=== PATIENT | female | born 1990 | race Caucasian/White ===

== ENCOUNTER → 2018-02-07 14:13 | Outpatient (CLI) | payer OTHER, SELFPAY ==
[2018-02-07 11:30] VITALS: BMI 27.8
--- OUTSIDE RECORDS SUMMARY | 2018-04-04 23:55 | XMS RPT_ITS ---
:1990 Author Organization [facility] Care Team Providers Name Role Phone Delano Gonzales Attending Delano Ordoñez Attending Delano Ordoñez Referring Unavailable PROBLEMS PROBLEMS DATE TYPE CONDITION / CODE ATTENDING STATUS SOURCE 02/07/2018 Unknown J02.9 - Acute Delano Gonzales Active [place] pharyngitis, Community unspecified / Hospital J02.9(ICD-10) Repository PROCEDURES PROCEDURES No Procedure Records FoundRESULTS RESULTS Observed: 02/07/2018 Status: F Source: CODORUS CULTURE, R/O STREP A 2:44 PM [facility] REPOSITORY [place] Culture No Streptococcus group A isolated. * This cultures intended use is to screen for Beta Streptococcus A only. All other pathogens and potential pathogens will not be screened for or reported. If a complete workup of all potential pathogens is indicated an order for a routine throat culture is required. Performed By: #### M100.010 #### [facility] [address] [place], [place], [address] URGENT CARE VISIT Observed: 02/07/2018 Status: F Source: CODORUS REPORT 11:46 AM [facility] REPOSITORY [facility] [address] [place] [address] OFFICE VISIT Date of Service: 02/07/18 MR#: [id number] Acct: [id number] Name: DAVID POST Rep #: [id number] : 1990 Provider: Delano RODGERS Age/Sex: 27/F Location: [facility] Status: Signed Intake Vital Signs02/07/18 Height 5 ft 4 in Intake Visit Reasons: SORE THROAT Chief Complaint: Sore throat [employer] Required: No Accompanied by: boyfriend Is patient in pain?: No Allergies No Known Allergies Allergy (Unverified 02/07/18 11:32) Medications ibuprofen 200 mg capsule 200 mg PO TID-QID PRN 02/07/18 [History Confirmed 02/07/18] PFS Medical History History of anemia (Acute) History of asthma (Acute) History of back pain (Acute) history of knee pain (Acute) Social History Smoking Status: Current every day smoker alcohol intake: current HPI HPI Chief Complaint: Sore throat Details: DAVID POST, is a 27 F who presents to the office today for initial evaluation approximately 48-hour history of sore throat, chills, congestion. No complaints of fever, sweats, rash, cough, chest pain/shortness of breath. She is a non-smoker, noting her live-in boyfriend has similar symptoms. She is a non-smoker noting no fggo-fgj-joyofma products have been tried to assist with symptoms. She notes no other associated symptoms and no other alleviating or aggravating factors. ROS Const Constitutional: No other (ROS negative x10 other than as noted above) Exam Const General: cooperative, healthy appearing, no acute distress, comfortable Nutritional Appearance: obese Orientation: alert, awake, oriented x3 HENMT Head: normal to inspection Ears: hearing grossly normal bilaterally, external ears normal, TM's normal bilaterally, EAC's normal Nose: external nose normal, nares normal, septum normal, nasal discharge clear (Scant amount) Face and sinus: normal facial exam, sinuses nontender, face symmetric Mouth: tongue normal, lip normal, oral mucosae normal Teeth and gingiva: dentition normal, gingiva normal Throat: uvula midline, posterior oropharynx normal, no postnasal drainage, abnormal tonsil bilaterally hypertrophy 1+ (Rapid strep test today negative) Eyes General: appearance normal, both eyes and all related structures Neck Neck: normal visual inspection, full ROM, no lymphadenopathy, no meningeal signs, supple Neck mass: No Thyroid: thyroid normal Lymphatic: no lymphadenopathy noted Chest Chest palpation AND inspection: normal inspection of the chest Resp Effort AND Inspection: normal respiratory effort, able to speak in complete sentences, symmetric chest movement, no cough Auscultation: Bilateral: Clear to Auscultation Cardio Palpation: normal PMI Rate: regular rate Rhythm: regular rhythm Heart Sounds: S1 normal, S2 normal, no gallops, no murmurs, no rubs Pulses: radial pulses present GI Inspection: normal to inspection Palpation: soft, no hepatosplenomegaly Skin General: no rashes or lesions noted Neuro General: alert, awake, oriented x3, gait normal Cognition: normal cognition Speech: speech normal Gait: normal gait Motor: muscle tone normal throughout Sensory Exam: no sensory deficits noted Psych Appearance: grossly normal Mental Status: mental status grossly normal Mood: congruent mood Affect: normal affect Speech and Movement: speech and movement normal Attitude: cooperative Thought Process: normal Thought Content: normal Judgment: judgment good Results BMSRAPIDSTREPA Office Rapid Strep A Negative Last Edit by Margaret Miles on 02/07/18 11:38 BMSRAPIDSTREPA Office Rapid Strep A Negative Last Edit by Deb Mcginnis on 02/07/18 11:44 Assessment AND Plan Problems 1. Pharyngitis J02.9 Plan Patient aware today's rapid strep test is negative therefore culture sent to lab for further evaluation. Clear fluid, rest, Advil/Tylenol, saltwater gargles as needed for symptom relief. Follow-up PCP in 5-7 days should symptoms not improve, sooner should symptoms worsen or any other concerns develop. Patient states acknowledging understanding all the above. This note was generated with Phoneplus dictation software. It may contain incorrect words, spelling, and punctuation that were not noted in checking the note before signing. Orders Orders: Coding Level of Care Code Off vis,new,level 3 Diagnoses Pharyngitis J02.9 02/07/18 1146 <Electronically signed by Delano RODGERS> Date Delano RODGERS Cosigner Signature: Date (if applicable) CC: ALLERGIES ALLERGIES DATE TYPE / CODE NAME / CODE REACTION SEVERITY SOURCE 02/07/2018 Drug No Known Unknown [place] [facility] Allergy/4160 Allergies/F00 Hospital 97772(SNOMED [id number](RXNOR Repository CT) M) ENCOUNTERS ENCOUNTERS ADMIT/DISCHARGE ACCOUNT ADMITTING ENCOUNTER LOCATION SOURCE NUMBER CLASS 02/07/2018 [id number] Ambulatory [place] [facility] ing:LABSPEC Repository 02/07/2018/11/28/ [id number] Ambulatory BMSBuilding:B [place] [address] [facility] Repository PAYERS PAYERS ENCOUNTER GUARANTOR PAYER SUBSCRIBER SOURCE 02/07/2018 DAVID B Primary DAVID B [place] [id number] [facility] [place] [id number] [id number] [address] [place] [address], Number: [place]ository [place] [id number]: [id number] Date:[id number] () [address], [place] [address]XF: 02/07/2018 Secondary NOT GIVENUNK [place] Insurance:SELF PAY [facility] Number: Effective Repository Date:2018-02-07 02/07/2018 DAVID B Primary DAVID B [place] [id number] [facility] [place] [id number] [id number] [address] [place] [address], Number: [place]ository [place] [id number]: [id number] Date:[id number] () [address], [place] [address]TZ: 02/07/2018 Secondary NOT GIVENUNK [place] Insurance:SELF PAY [facility] Number: Effective Repository Date:2018-02-07
== END ==
PROVIDERS: Referring Provider Physician Assistant; Visit Provider Physician Assistant
DX: J02.9 Acute pharyngitis, unspecified (principal)
CPT/HCPCS: 87081

== ENCOUNTER → 2021-01-26 15:18 | Outpatient (CLI) | payer MEDICARE, SELFPAY | PROVIDERS: Referring Provider Physician Assistant Surgical; Visit Provider Physician Assistant Surgical | DX: Z11.52 Encounter for screening for COVID-19 (principal) | CPT/HCPCS: 87635; U0005; U0003 ==

== ENCOUNTER → 2022-10-14 | Outpatient (CLI) | payer SELFPAY ==
[2022-10-14 09:20] LABS: Absolute Lymphocyte Count 1.75 X10^3/uL (0.83-4.51); Absolute Neutrophil Count 5.4 X10^3/uL (2.0-7.7); Basophil# 0.04 X10^3/uL; Basophil% 0.5 % (0-1); Eosinophil# 0.31 X10^3/uL; Eosinophils% 3.8 % (0-5); Hematocrit 37.1 % (37-47); Hemoglobin 12.6 g/dL (12.0-15.0); Lymphocyte # 1.75 X10^3/ul (0.83-4.51); Lymphocyte % 21.5 % (19-41); Mean Corpuscular Hgb 31.5 pg (27.0-32.0); Mean Corpuscular Volume 92.8 fL (81-99); Mean Platelet Vol. 10.4 fl (6.2-12.0); Monocyte# 0.63 X10^3/uL; Monocyte% 7.7 % (0-10); NRBC Flagged by Analyzer 0 % (0-5); Neutrophil # 5.37 X10^3/uL (2.7-7.7); Platelet Count 243 K/mm3 (150-450); RBC Distribution Width SD 41.2 fl (35.1-43.9); White Blood Count 8.1 K/mm3 (4.4-11.0)
[2022-10-14 10:10] LABS: NATERA MAILED SPECIMEN
[2022-10-14 10:24] LABS: HIV - WCH Non-Reactive (Nonreactive); Hepatitis B Surface Antigen Non-Reactive (Nonreactive); Hepatitis C Antibody Non-Reactive (Nonreactive); Rubella IgG Reactive (Nonreactive); Syphilis Antibodies Non-reactive
[2022-10-17 05:06] LABS: Chlamydia By Nucleic Acid AMP Negative (Negative); Gonococcus By Nucleic Acid AMP Negative (Negative)
== END | disposition home or self-care (01) ==
PROVIDERS: Obstetrics & Gynecology; Referring Provider Obstetrics & Gynecology; Visit Provider Obstetrics & Gynecology
DX: Z34.81 Encounter for supervision of other normal pregnancy, first trimester (principal)
CPT/HCPCS: 36415; 85025; 86703; 86762; 86780; 86803; 86850; 86900; 86901; 87086; 87088; 87340; 87491; 87591

== ENCOUNTER → 2022-11-11 | Outpatient (CLI) | payer SELFPAY | END | disposition home or self-care (01) | PROVIDERS: Referring Provider Advanced Practice Midwife; Visit Provider Advanced Practice Midwife | DX: R35.0 Frequency of micturition (principal) | CPT/HCPCS: 87086; 87088 ==

== ENCOUNTER → 2023-02-17 | Outpatient (CLI) | payer BC, SELFPAY ==
[2023-02-17 16:25] LABS: Absolute Lymphocyte Count 1.64 X10^3/uL (0.83-4.51); Absolute Neutrophil Count 8.2 X10^3/uL (2.0-7.7); Basophil# 0.04 X10^3/uL; Basophil% 0.4 % (0-1); Eosinophil# 0.21 X10^3/uL; Eosinophils% 1.9 % (0-5); Hematocrit 34.1 % (37-47); Lymphocyte # 1.64 X10^3/ul (0.83-4.51); Lymphocyte % 15.1 % (19-41); Mean Corp Hgb Conc 35.2 g/dL (32-36); Mean Corpuscular Hgb 33.3 pg (27.0-32.0); Mean Corpuscular Volume 94.7 fL (81-99); Mean Platelet Vol. 10.5 fl (6.2-12.0); Monocyte# 0.71 X10^3/uL; Monocyte% 6.5 % (0-10); NRBC Flagged by Analyzer 0 % (0-5); Neutrophil # 8.24 X10^3/uL (2.7-7.7); Neutrophil % 75.6 % (47-70); Platelet Count 235 K/mm3 (150-450); RBC Distribution Width CV 12.2 % (11.6-14.6); RBC Distribution Width SD 42.8 fl (35.1-43.9); White Blood Count 10.9 K/mm3 (4.4-11.0)
[2023-02-17 17:13] LABS: Glucose Challenge Gest 1H 50g 106 mg/dL (70-140)
[2023-02-17 17:52] LABS: HIV - WCH Non-Reactive (Nonreactive); Syphilis Antibodies Non-reactive
== END | disposition home or self-care (01) ==
PROVIDERS: Referring Provider Obstetrics & Gynecology; Visit Provider Obstetrics & Gynecology
DX: O09.90 Supervision of high risk pregnancy, unspecified, unspecified trimester (principal); Z3A.00 Weeks of gestation of pregnancy not specified; Z13.1 Encounter for screening for diabetes mellitus
CPT/HCPCS: 36415; 82950; 85025; 86703; 86780

== ENCOUNTER → 2023-04-11 | Outpatient (CLI) | payer BC, SELFPAY ==
--- NOTE | 2023-04-11 14:07 | US_ITS ---
INDICATION: Growth scan d/t asthma inhaler use EXAMINATION: US OB Follow-Up TECHNIQUE: Transabdominal pelvic ultrasound was performed. COMPARISON: None. FINDINGS: Single live intrauterine fetus in cephalic presentation with heart rate 153 BPM. Posterior grade 2 placenta appears intact with no placenta previa. Nonvisualized cervix, obscured by shadowing. Maternal adnexa not imaged. Amniotic fluid index within normal limits, 17.5 cm. Estimated gestational age of 35 weeks 3 days based on biometrics with MANUEL of 05/13/23. Clinical age of 36 weeks 1 day with LMP of 08/01/2022 and MANUEL 05/08/2023. Estimated weight 2715 g (6 lbs. 0 oz.), 37th percentile. BIOMETRIC MEASUREMENTS: BIPARIETAL DIAMETER: 8.82 cm which corresponds to 35 weeks 5 days. HEAD CIRCUMFERENCE: 31.90 cm which corresponds to 35 weeks 6 days. ABDOMINAL CIRCUMFERENCE: 32.10 cm which corresponds to 36 weeks 0 days. FEMORAL LENGTH: 6.64 cm which corresponds to 34 weeks 1 day. US/OB Limited With Biometrics IMPRESSION: Single live intrauterine with no acute abnormality. EGA by ultrasound is 35 weeks 3 days with clinical age of 36 weeks 1 day. Electronically Signed: Denis Parekh MD at 0:49 EST ,
--- OUTSIDE RECORDS SUMMARY | 2023-04-11 14:28 | XMS RPT_ITS | CCD ---
Author Name Unknown Address [address] [place] [address] Organization [facility] Care Team Providers Care Pediatric Dentist Name Role Phone TONI MESA Unavailable Unavailable TONI MESA Unavailable Unavailable AA NO PCP, NO PCP Unavailable Unavailable Unavailable Primary Care Provider SHERRI Fay Referring Unavailable NO PRIMARY CARE, Primary Care Unavailable KEEGAN WINKLER Referring UnavailYANIRA Rouse Attending Unavailable Allergies Allergy Classification Reported Allergen(s) Allergy Type Date of Onset Reaction(s) Facility (2 sources) Aspirin; Translations: [ASPIRIN] Drug Allergy 05-22-2019 Unknown [facility] Medications Completed/Discontinued Medications Medication Drug Class(es) Dates Sig (Normalized) Sig (Original) Ethinyl Estradiol / Norethindrone (1 source) Estrogen Start: 11-04-2019 take 1 tablet by mouth once daily 04/01, , 1-20 mg-mcg per tablet Indications: Encounter for surveillance of contraceptive pills TAKE 1 TABLET BY MOUTH EVERY DAY 84 tablet 0 11/04/2019 Active Problems Active Problems Problem Classification Problem Date Documented Da te Episodic/Chronic External Injury - Struck by; against (1 source) Striking against or struck by other objects, initial encounter; Translations: [STRIKING AGNST/STRUCK OTH OBJ INIT] Onset: 12-21-2016 Other connective tissue disease (1 source) Pain in finger of right hand; Translations: [Pain in right finger(s)] Episodic Other connective tissue disease (1 source) Pain in right finger(s); Translations: [Pain of finger of right hand] Onset: 06-14-2022 Episodic Other injuries and conditions due to external causes (1 source) Injury of right hand; Translations: [Unspecified injury of right wrist, hand and finger(s), initial encounter] Episodic Other injuries and conditions due to external causes (1 source) Unspecified injury of right wrist, hand and finger(s), initial encounter; Translations: [Injury of right hand, initial encounter] Onset: 06-14-2022 Episodic Past or Other Problems Problem Classification Problem Date Documented Da te Episodic/Chronic Immunizations and screening for infectious disease (1 source) Encounter for immunization; Translations: [ENCOUNTER FOR IMMUNIZATION] Onset: 12-21-2016 Episodic Open wounds of extremities (1 source) Laceration without foreign body of right index finger with damage to nail, initial encounter; Translations: [LAC W/O FB RT IF W/DAMAGE NAIL INIT] Onset: 12-21-2016 Episodic Other aftercare (1 source) Other nursing home (current) drug therapy; Translations: [OTH FDC CURRENT DRUG THERAPY] Onset: 12-21-2016 Episodic Other injuries and conditions due to external causes (1 source) Other specified injuries of right wrist, hand and finger(s), initial encounter; Translations: [OTH SPEC INJ RT WRST HND FNGR INIT] Onset: 12-21-2016 Episodic Screening or history of mental health and substance abuse (1 source) Personal history of nicotine dependence; Translations: [PERSONAL HISTORY OF NICOTINE DEPEND] Onset: 12-21-2016 Episodic Results Test Name Value Interpretation Reference Range Facil ity Vital Signs Date Time Vital Sign Value Performing Clinician Gregory manuel 06-14-2022 12:53-0400 Body temperature 97.2 [degF] Sherri Seaman APRN.SOFIE Work Phone: [facility] 06-14-2022 12:53-0400 Body weight 75.3 kg Sherri Seaman APRN.CNP Work Phone: [facility] 06-14-2022 12:53-0400 Diastolic blood pressure 68 mm[Hg] Sherri Seaman APRN.SOFIE Work Phone: [facility] 06-14-2022 12:53-0400 Heart rate 78 /min Sherri Seaman APRN.CNP Work Phone: [facility] 06-14-2022 12:53-0400 Respiratory rate 16 /min Sherri Seaman APRN.SOFIE Work Phone: [facility] 06-14-2022 12:53-0400 SaO2% (BldA) [Mass fraction] 99 % Sherri Seaman APRN.CNP Work Phone: [facility] 06-14-2022 12:53-0400 Systolic blood pressure 110 mm[Hg] Sherri Seaman APRN.CNP Work Phone: [facility] Encounters Encounter Date Encounter Type Care Provider Facility Start: 12-22-2022 End: 12-22-2022 ambulatory MD [facility] Start: 06-14-2022 End: 06-14-2022 ambulatory SHERRI SEAMAN Facility:[facility] Start: 06-14-2022 End: 06-14-2022 Patient encounter procedure Sherri Seaman APRN.CNP Work Phone: [facility] Plan of Treatment Date Care Activity Detail Author Start: 05-21-2024 PAP TESTING PAP TESTING [facility] Start: 11-11-2022 Influenza vaccination INFLUENZA (Sea son Ended) [facility] Start: 03-13-2022 DEPRESSION ASSESSMENT DEPRESSION ASS ESSMENT [facility] Start: 2020 HPV TESTING HPV TESTING [facility] Start: 2009 Urine microalbumin profile DTAP,TDAP,TD (1 - Tdap) [facility] Start: 2008 HEPATITIS C SCREENING HEPATITIS C SC YOMAIRA [facility] Start: 2008 HIV SCREENING HIV SCREENING [facility] Start: 1996 PNEUMOCOCCAL (1 - PCV) PNEUMOCOCCAL (1 - PCV) [facility] Start: 05-03-1991 COVID-19 VACCINE (#1) COVID-19 VACCI NE (#1) [facility] Start: 1990 HEPATITIS B (1 of 3 - 3-dose series) HEPATITIS B (1 of 3 - 3-dose series) [facility] Payers Date Payer Category Payer Unknown [employer] [id number] 2022-Present [phone] [address] [address] [place] [address] PPO [id number] 2022 Unknown [id number] 1990 Unknown [id number] 1959 Self-pay [id number] Unknown [id number] Social History Date Type Detail Facility Start: [facility]14[facility] History of tobacco use Cigarette Smoker C [facility] Start: 06-14-2022 Tobacco use and exposure Smoke less tobacco non-user [facility] Start: 06-14-2022 Alcohol intake Current drinke r of alcohol (finding) [facility] Start: 05-22-2019 History SDOH Alcohol Frequency 4 [facility] Start: 05-22-2019 History SDOH Alcohol Std Drinks 3 [facility] Start: 05-22-2019 History SDOH Social Connections Phone 1 [facility] Start: 05-22-2019 History SDOH Social Connections Membership 2 [facility] Start: 05-22-2019 History SDOH Social Connections Living 8 [facility] Start: 05-22-2019 History SDOH Physica l Activity DPW 7 [facility] Start: 05-22-2019 History SDOH Physica l Activity MPS 15 [facility] Start: 05-22-2019 History SDOH Stress 5 [facility] Start: 06-14-2022 Tobacco Comment 4-5 a day [facility] Start: 1990 Sex Assigned At Not on file C [facility] Progress note 06-14-2022 Note Date & Type Note Facility 06-14-2022 Note HNO ID: [id number] Author: Traci Ayala RT(R) Service: Radiology Author Type: Technologist Type: Progress Notes Filed: 06/14/2022 1:12 PM Note Text: Radiology Service Progress Note PATIENT NAME: Payton Steiner DATE OF SERVICE: June 14, 2022 TIME: 1:06 PM PATIENT IDENTITY VERIFICATION COMPLETED USING TWO (2) IDENTIFIERS: Name and Date of confirmed by patient verbally. FALL SCREENING: Has the patient had 2 falls in the last year or 1 fall with injury or currently using an Ambulatory Assistive Device (Walker, Cane, Wheelchair, Crutches, etc.)? No PATIENT GENDER DATA: Female. status: : No status: NO. PATIENT RELEVANT IMPLANT DATA REVIEWED: Yes RADIOLOGY DEPARTMENT: General X-ray: Exam(s) Completed: Upper Extremity X-Ray(s): Hand, right PERIPHERAL IV DATA: Not applicable SIGNED BY: RT Bo(R) June 14, 2022 1:06 PM [facility] Progress note 06-14-2022 Note Date & Type Note Facility 06-14-2022 Note HNO ID: [id number] Author: Sherri Seaman APRN.PUMP REBUILDER Service: ? Author Type: Nurse Practitioner Type: Progress Notes Filed: 06/14/2022 1:33 PM Note Text: Subjective The history is provided by the patient. No language assistant was used. HPI Payton Steiner is a 31 year old female who presents today for CC of right hand/ring finger pain after shutting hand/finger in car door. This happened about an hours ago. There are no cuts, mild swelling, no bruising. She has not used any treatment. No previous injury. BP 110/68 Pulse 78 Temp 36.2 ?C (97.2 ?F) Resp 16 Wt 75.3 kg (166 lb) LMP 05/10/2019 SpO2 99% BMI (P) 28.69 kg/m? Social History Tobacco Use Smoking status: Every Day Types: Cigarettes Smokeless tobacco: Never Tobacco comments: 4-5 a day Vaping Use Vaping Use: Never used Substance Use Topics Alcohol use: Yes Drug use: Yes Types: Marijuana No past medical history on file. I have confirmed and edited as necessary, the [facility] Review of Systems Constitutional: Negative for chills and fever. Musculoskeletal: Positive for joint pain (right hand, ring finger). Negative for myalgias. Skin: Negative for itching and rash. All other systems reviewed and are negative. Objective Physical Exam Vitals and nursing note reviewed. Cardiovascular: Pulses: Radial pulses are 2+ on the right side and 2+ on the left side. Pulmonary: Effort: Pulmonary effort is normal. Skin: General: Skin is warm and dry. Neurological: Mental Status: She is alert and oriented to person, place, and time. Psychiatric: Mood and Affect: Affect normal. ASSESSMENT/PLAN: 1. Injury of right hand, initial encounter - ICD9: 959.4, ICD10: S69.91XA (primary diagnosis) - XR HAND GENERAL 3V PA/LAT/OBL RIGHT 2. Pain of finger of right hand - ICD9: 729.5, ICD10: M79.644 RICE Tylenol/Ibuprofen prn Loren tape/splint as needed for comfort - XR HAND GENERAL 3V PA/LAT/OBL RIGHT FINDINGS: No fractures or dislocations are seen. The bones, joint spaces and soft tissues are unremarkable. IMPRESSION: Negative Interpreted by : AMAN HELMS MD Diagnosis and treatment plan were discussed and questions were answered to the patient's satisfaction. Pt acknowledged understanding of concepts and follow up plan. Specific signs and symptoms that would indicate the need for higher level of care were discussed in detail warranting prompt ER evaluation. Sherri Seaman APRN.CNP [facility] Instructions 06-14-2022 Patient Instructions Note Date & Type Note Facility 06-14-2022 Instructions Sherri Seaman APRN.CNP - 06/14/2022 1:29 PM EDT Rest, ice, elevation, splint/loren tape as needed for comfort. Tylenol (generic acetaminophen) 500 mg-2 tabs every 8 hrs. as needed for fever and aches Ibuprofen 600 mg (3-200mg tablets) every 6 hours if pain persists beyond 10-14 days there are times where a repeat x-ray is needed to rule out occult fracture - XR HAND GENERAL 3V PA/LAT/OBL RIGHT FINDINGS: No fractures or dislocations are seen. The bones, joint spaces and soft tissues are unremarkable. IMPRESSION: Negative Interpreted by : AMAN HELMS MD documented in this encounter [facility] History of Present illness Narrative 06-14-2022 Sherri Seaman APRN.CNP - 06/14/2022 12:58 PM EDT Note Date & Type Note Facility 06-14-2022 History of Presen t illness Narrative Subjective The history is provided by the patient. No language assistant was used. HPI Payton Steiner is a 31 year old female who presents today for CC of right hand/ring finger pain after shutting hand/finger in car door. This happened about an hours ago. There are no cuts, mild swelling, no bruising. She has not used any treatment. No previous injury. BP 110/68 Pulse 78 Temp 36.2 C (97.2 F) Resp 16 Wt 75.3 kg (166 lb) LMP 05/10/2019 SpO2 99% BMI (P) 28.69 kg/m Social History Tobacco Use Smoking status: Every Day Types: Cigarettes Smokeless tobacco: Never Tobacco comments: 4-5 a day Vaping Use Vaping Use: Never used Substance Use Topics Alcohol use: Yes Drug use: Yes Types: Marijuana No past medical history on file. I have confirmed and edited as necessary, the [facility] Review of Systems Constitutional: Negative for chills and fever. Musculoskeletal: Positive for joint pain (right hand, ring finger). Negative for myalgias. Skin: Negative for itching and rash. All other systems reviewed and are negative. Objective Physical Exam Vitals and nursing note reviewed. Cardiovascular: Pulses: Radial pulses are 2+ on the right side and 2+ on the left side. Pulmonary: Effort: Pulmonary effort is normal. Skin: General: Skin is warm and dry. Neurological: Mental Status: She is alert and oriented to person, place, and time. Psychiatric: Mood and Affect: Affect normal. ASSESSMENT/PLAN: 1. Injury of right hand, initial encounter - ICD9: 959.4, ICD10: S69.91XA (primary diagnosis) - XR HAND GENERAL 3V PA/LAT/OBL RIGHT 2. Pain of finger of right hand - ICD9: 729.5, ICD10: M79.644 RICE Tylenol/Ibuprofen prn Loren tape/splint as needed for comfort - XR HAND GENERAL 3V PA/LAT/OBL RIGHT FINDINGS: No fractures or dislocations are seen. The bones, joint spaces and soft tissues are unremarkable. IMPRESSION: Negative Interpreted by : AMAN HELMS MD Diagnosis and treatment plan were discussed and questions were answered to the patient's satisfaction. Pt acknowledged understanding of concepts and follow up plan. Specific signs and symptoms that would indicate the need for higher level of care were discussed in detail warranting prompt ER evaluation. Sherri Seaman APRN.SOFIE documented in this encounter [facility] Evaluation note Note Date & Type Note Facility documented in this encounter [facility] Reason for referral (narrative) Diagnostic Procedure Only (Urgent) - Pending Review Note Date & Type Note Facility Referral ID Status Reason Start Date Expiration Date Visits Requested Visits Authorized [id number] Pending Review Auto-Generat ed Referral 06/14/2022 07/14/2023 1 1 [facility] Summary Purpose Family History No Family History Records FoundNo Family History Records FoundNo Family History Records Found Advance Directives No Advanced Directives Records FoundNo Advanced Directives Records FoundNo Advanced Directives Records Found Additional Source Comments INFORMATION SOURCE (unrecogn ized section and content) DATE CREATED AUTHOR AUTHOR'S ORGANIZ ATION 06/17/2022 [facility] DATE CREATED AUTHOR AUTHOR'S ORGANIZ ATION 12/23/[address] [facility] Source Comments (unrecognize d section and content) In the event this informatio n is protected by the Federal Confidentiality of Alcohol and Drug Abuse Patient Records regulations: The Federal rules restrict any use of the information to criminally investigate or prosecute any alcohol or drug abuse patient.[facility] Reason for Visit (unrecogniz ed section and content) Specialty Diagnoses / Procedures Referred By Castillo astorga Referred To Contact Family Medicine / [facility] Diagnoses RM 10 right ring finger injury, slammed in car door today Procedures EST SAME DAY Self Sherri Seaman APRN.PUMP REBUILDER [id number] [id number] Referral ID Status Reason Start Date Expiration Date Visits Re quested Visits Authorized [id number] Denied 06/14/2022 09/12/2022 1 0 FOR RECORDS PERTAINING TO PATIENTS WHO ARE OR HAVE BEEN ENROLLED IN A CHEMICAL DEPENDENCY/SUBSTANCEABUSE PROGRAM, SOME INFORMATION MAY BE OMITTED. This clinical summary was aggregated from multiple sources. Caution should be exercised in using it in the provision of clinical care. This summary normalizes information from multiple sources, and as a consequence, information in this document may materially change the coding, format and clinical context of patient data. In addition, data may be omitted in some cases. CLINICAL DECISIONS SHOULD BE BASED ON THE PRIMARY CLINICAL RECORDS. [facility]. provides no warranty or guarantee of the accuracy or completeness of information in this document.
== END | disposition home or self-care (01) ==
PROVIDERS: Referring Provider Registered Nurse; Visit Provider Registered Nurse
DX: J45.909 Unspecified asthma, uncomplicated (principal)
CPT/HCPCS: 76816

== ENCOUNTER → 2023-04-21 | Outpatient (CLI) | payer BC, SELFPAY ==
--- OUTSIDE RECORDS SUMMARY | 2023-04-21 17:54 | XMS RPT_ITS | CCD ---
Author Name Unknown Address [address] [place] [address] Organization [facility] Care Team Providers Care Staff Development Coordinator Name Role Phone TONI MESA Unavailable Unavailable TONI MESA Unavailable Unavailable AA NO PCP, NO PCP Unavailable Unavailable Unavailable Primary Care Provider SHERRI Fay Referring Unavailable NO PRIMARY CARE, Primary Care Unavailable KEEGAN WINKLER Referring UnavailYANIRA Rouse Attending Unavailable Allergies Allergy Classification Reported Allergen(s) Allergy Type Date of Onset Reaction(s) Facility (2 sources) Aspirin; Translations: [ASPIRIN] Drug Allergy 05-22-2019 Unknown [facility] Medications Completed/Discontinued Medications Medication Drug [...] 12-21-2016 Episodic Other aftercare (1 source) Other snf (current) drug therapy; Translations: [OTH [facility] CURRENT DRUG THERAPY] Onset: 12-21-2016 Episodic Other [...] 97.2 [degF] Sherri Seaman APRN.SOFIE Work Phone: [facility] 06-14-2022 12:53-0400 Body weight 75.3 kg Sherri Seaman APRN.CNP Work Phone: [facility] 06-14-2022 12:53-0400 Diastolic blood pressure 68 mm[Hg] Sherri Seaman APRN.SOFIE Work Phone: [facility] 06-14-2022 12:53-0400 Heart rate 78 /min Sherri Seaman APRN.CNP Work Phone: [facility] 06-14-2022 12:53-0400 Respiratory rate 16 /min Sherri Seaman APRN.SOFIE Work Phone: [facility] 06-14-2022 12:53-0400 SaO2% (BldA) [Mass fraction] 99 % Sherri Seaman APRN.CNP Work Phone: [facility] 06-14-2022 12:53-0400 Systolic blood pressure 110 mm[Hg] Sherri Seaman APRN.CNP Work Phone: [facility] Encounters Encounter Date Encounter Type Care Provider Facility Start: 12-22-2022 End: 12-22-2022 ambulatory MD [facility] Start: 06-14-2022 End: 06-14-2022 ambulatory SHERRI SEAMAN Facility:[facility] Start: 06-14-2022 End: 06-14-2022 Patient encounter procedure Sherri Seaman APRN.CNP Work Phone: [facility] Plan of Treatment Date Care Activity Detail Author Start: 05-21-2024 PAP TESTING PAP TESTING [facility] Start: 11-11-2022 Influenza vaccination INFLUENZA (Sea son Ended) [facility] Start: 03-13-2022 DEPRESSION ASSESSMENT DEPRESSION ASS ESSMENT [facility] Start: 2020 HPV TESTING HPV TESTING [facility] Start: 2009 Urine microalbumin profile DTAP,TDAP,TD (1 - Tdap) [facility] Start: 2008 HEPATITIS C SCREENING HEPATITIS C SC YOMAIRA [facility] Start: 2008 HIV SCREENING HIV SCREENING [facility] Start: 1996 PNEUMOCOCCAL (1 - PCV) PNEUMOCOCCAL (1 - PCV) [facility] Start: 05-03-1991 COVID-19 VACCINE (#1) COVID-19 VACCI NE (#1) [facility] Start: 1990 HEPATITIS B (1 of 3 - 3-dose series) HEPATITIS B (1 of 3 - 3-dose series) [facility] Payers Date Payer Category Payer Unknown [employer] [id number] 2022-Present [phone] [address] [address] [place] [address] PPO [id number] 2022 Unknown [id number] 1990 Unknown [id number] 1959 Self-pay [id number] Unknown [id number] Social History Date Type Detail Facility [facility]: [facility] History of tobacco use Cigarette Smoker [facility] Start: 06-14-2022 Tobacco use and exposure Smoke less tobacco non-user [facility] Start: 06-14-2022 Alcohol intake Current drinke r of alcohol (finding) [facility] Start: 05-22-2019 History SDOH Alcohol Frequency 4 [facility] Start: 05-22-2019 History SDOH Alcohol Std Drinks 3 [facility] Start: 05-22-2019 History SDOH Social Connections Phone 1 [facility] Start: 05-22-2019 History SDOH Social Connections Membership 2 [facility] Start: 05-22-2019 History SDOH Social Connections Living 8 [facility] Start: 05-22-2019 History SDOH Physica l Activity DPW 7 [facility] Start: 05-22-2019 History SDOH Physica l Activity MPS 15 [facility] Start: 05-22-2019 History SDOH Stress 5 [facility] Start: 06-14-2022 Tobacco Comment 4-5 a day [facility] Start: 1990 Sex Assigned At Not on file [facility] Progress note 06-14-2022 Note Date & Type Note Facility 06-14-2022 Note HNO ID: [id number] Author: Traci Ayala RT(R) Service: Radiology Author [...] RT Bo(R) June 14, 2022 1:06 PM [facility] Progress note 06-14-2022 Note Date & Type Note Facility 06-14-2022 Note HNO ID: [id number] Author: Sherri Seaman APRN.ORNAMENTER HAND Service: ? Author Type: Nurse Practitioner Type: Progress Notes Filed: 06/14/2022 1:33 PM Note Text: Subjective The history is provided by the patient. No leaf tinner was used. HPI Payton Steiner is a [...] have confirmed and edited as necessary, the [facility] Review of Systems Constitutional: Negative for chills [...] warranting prompt ER evaluation. Sherri Seaman APRN.CNP [facility] Instructions 06-14-2022 Patient Instructions Note [...] AMAN HELMS MD documented in this encounter [facility] History of Present illness Narrative 06-14-2022 Sherri Seaman APRN.CNP - 06/14/2022 12:58 PM EDT Note Date & Type Note Facility 06-14-2022 History of Presen t illness Narrative Subjective The history is provided by the patient. No leaf tinner was used. HPI Payton Steiner is a [...] have confirmed and edited as necessary, the [facility] Review of Systems Constitutional: Negative for chills [...] Sherri Seaman APRN.SOFIE documented in this encounter [facility] Evaluation note Note Date & Type Note Facility documented in this encounter [facility] Reason for referral (narrative) Diagnostic Procedure Only (Urgent) - Pending Review Note Date & Type Note Facility Referral ID Status Reason Start Date Expiration Date Visits Requested Visits Authorized [id number] Pending Review Auto-Generat ed Referral 06/14/2022 07/14/2023 1 1 [facility] Summary Purpose Family History No Family History Records FoundNo Family History Records FoundNo Family History Records Found Advance Directives No Advanced Directives Records FoundNo Advanced Directives Records FoundNo Advanced Directives Records Found Additional Source Comments INFORMATION SOURCE (unrecogn ized section and content) DATE CREATED AUTHOR AUTHOR'S ORGANIZ ATION 06/17/2022 [facility] DATE CREATED AUTHOR AUTHOR'S ORGANIZ ATION 12/23/2022 [facility] Source Comments (unrecognize d section and content) In the event this informatio n is protected by the Federal Confidentiality of Alcohol and Drug Abuse Patient Records regulations: The Federal rules restrict any use of the information to criminally investigate or prosecute any alcohol or drug abuse patient.[facility] Reason for Visit (unrecogniz ed section and content) Specialty Diagnoses / Procedures Referred By Castillo astorga Referred To Contact Family Medicine / [facility] Diagnoses RM 10 right ring finger injury, slammed in car door today Procedures EST SAME DAY Self Sherri Seaman APRN.ORNAMENTER HAND [id number] [id number] Referral ID Status Reason Start Date Expiration Date Visits Re quested Visits Authorized [id number] Denied 06/14/2022 09/12/2022 1 0 FOR RECORDS [...] BE BASED ON THE PRIMARY CLINICAL RECORDS. [employer] [facility]. provides no warranty or guarantee of the accuracy or completeness of information in this document.
== END | disposition home or self-care (01) ==
PROVIDERS: Referring Provider Advanced Practice Midwife; Visit Provider Advanced Practice Midwife
DX: O09.90 Supervision of high risk pregnancy, unspecified, unspecified trimester (principal); Z3A.00 Weeks of gestation of pregnancy not specified
CPT/HCPCS: 87081

== ENCOUNTER 2023-04-28 03:03 | Inpatient (IN) | payer BC, SELFPAY ==
[2023-04-28] VITALS (55 sets, daily range): BP systolic 108–159; BP diastolic 52–90; PULSE 60–111; RESP 16–23; TEMP 36.6–37.4; O2SAT 94–100; BMI 34.9
--- NOTE | 2023-04-28 | PLAC_PTH ---
PATHOLOGY RESULTS PATIENT: DAVID POST LOC: WP U#:[id number] AGE/SX: 32/F ROOM: WP011 RE04/28/[address]: Dr. Meena Luciano MD : 1990 BED: 1 DIS: 04/30/2023 SPEC #: [id number] RECD: 04/29/23 00:20 STATUS: KEEGAN PRINCESS #: [id number] ALEXI: 04/28/23 00:[address]: Meena Luciano DEPT: SURGICAL PATHOLOGY RECD BY: Jennifer Holt ENTERED: 05/01/23 15:06 SP TYPE: PLACENTA OTHR DR: No Primary Care Phys Tissues: Placenta, NOS Procedures: Surgery Specimen Level V HEADER OPERATION: Primary section PRE-OP DIAGNOSIS: COVID TISSUE SUBMITTED: Placenta MICROSCOPIC DIAGNOSIS Jules placenta (390 gm): Umbilical cord - trivascular with no evidence of inflammation. Placental membranes - no pathologic diagnosis. Placental disc - remote infarcts, Sariah change, organizing intraparenchymal hemorrhage, intervillous congestion and mildly increased intraparenchymal fibrin plaques. AM:caro 05/02/2023 MICROSCOPIC DESCRIPTION Slides are reviewed. GROSS DESCRIPTION SPECIMEN: PLACENTA / CLINICAL INFORMATION: A. Weight: 2.885 kg B. Gestational Age: 38 weeks C. Sex: Male PLACENTAL WEIGHT (POST FIXATION): 390 gm PLACENTAL DIMENSIONS: 17.0 x 14.0 x 3.0 cm PLACENTAL SHAPE: Usual ovoid PLACENTAL WEIGHT FOR GESTATIONAL AGE: Within 10-99th percentile MEMBRANES - Present A. Insertion: Marginal B. Site of rupture from edge: 8.0 cm from edge of placental disc C. Color of membrane: Anderson-reyna D. Abnormalities: None UMBILICAL CORD - Present A. Color: Anderson-reyna B. Insertion: Central C. Length: 24.0 cm D. Diameter: 1.3 cm E. Number of vessels: Three F. Abnormalities: None PLACENTAL DISC - Present A. Color of surface: Anderson-reyna B. surface abnormalities: None C. Maternal cotyledons: Intact with minimal tears D. Attached retro placental clot: No clot E. Cut surface: Dark red and spongy F. Lesions: Sections reveal three anderson, peripheral, indurated areas, largest measuring 1.5 cm in greatest dimension. A central hemorrhagic area is also noted measuring 1.0 cm in greatest dimension. G. Separate clot: Absent SECTIONS SUBMITTED: 1. Membrane roll 2. Cord, maternal end, two peripheral lesions 3. Cord, end, one peripheral lesion 4. Placental disc, and maternal surfaces, central lesion 5. Placental disc, and maternal surfaces 6. Placental disc, and maternal surfaces NANETTE:caro 05/01/2023 TC:5 CPT: 34946
--- OUTSIDE RECORDS SUMMARY | 2023-04-28 02:03 | XMS RPT_ITS | CCD ---
Author Name Unknown Address [address] [place] [address] Organization [facility] Care Team Providers Care Body Mechanic Name Role Phone TONI MESA Unavailable Unavailable TONI MESA Unavailable Unavailable AA NO PCP, NO PCP Unavailable Unavailable Unavailable Primary Care Provider SHERRI Fay Referring Unavailable NO PRIMARY CARE, Primary Care Unavailable KEEGAN WINKLER Referring UnavailYANIRA Rouse Attending Unavailable Allergies Allergy Classification Reported Allergen(s) Allergy Type Date of Onset Reaction(s) Facility (2 sources) Aspirin; Translations: [ASPIRIN] Drug Allergy 05-22-2019 Unknown [facility] Medications Completed/Discontinued Medications Medication Drug Class(es) Dates [...] 12-21-2016 Episodic Other aftercare (1 source) Other retirement (current) drug therapy; Translations: [OTH [facility] CURRENT DRUG THERAPY] Onset: 12-21-2016 Episodic Other [...] 97.2 [degF] Sherri Seaman APRN.SOFIE Work Phone: [facility] 06-14-2022 12:53-0400 Body weight 75.3 kg Sherri Seaman APRN.CNP Work Phone: [facility] 06-14-2022 12:53-0400 Diastolic blood pressure 68 mm[Hg] Sherri Seaman APRN.SOFIE Work Phone: [facility] 06-14-2022 12:53-0400 Heart rate 78 /min Sherri Seaman APRN.CNP Work Phone: [facility] 06-14-2022 12:53-0400 Respiratory rate 16 /min Sherri Seaman APRN.SOFIE Work Phone: [facility] 06-14-2022 12:53-0400 SaO2% (BldA) [Mass fraction] 99 % Sherri Seaman APRN.CNP Work Phone: [facility] 06-14-2022 12:53-0400 Systolic blood pressure 110 mm[Hg] Sherri Seaman APRN.CNP Work Phone: [facility] Encounters Encounter Date Encounter Type Care Provider Facility Start: 12-22-2022 End: 12-22-2022 ambulatory MD [facility] Start: 06-14-2022 End: 06-14-2022 ambulatory SHERRI SEAMAN Facility:[facility] Start: 06-14-2022 End: 06-14-2022 Patient encounter procedure Sherri Seaman APRN.CNP Work Phone: [facility] Plan of Treatment Date Care Activity Detail Author Start: 05-21-2024 PAP TESTING PAP TESTING [facility] Start: 11-11-2022 Influenza vaccination INFLUENZA (Sea son Ended) [facility] Start: 03-13-2022 DEPRESSION ASSESSMENT DEPRESSION ASS ESSMENT [facility] Start: 2020 HPV TESTING HPV TESTING [facility] Start: 2009 Urine microalbumin profile DTAP,TDAP,TD (1 - Tdap) [facility] Start: 2008 HEPATITIS C SCREENING HEPATITIS C SC YOMAIRA [facility] Start: 2008 HIV SCREENING HIV SCREENING [facility] Start: 1996 PNEUMOCOCCAL (1 - PCV) PNEUMOCOCCAL (1 - PCV) [facility] Start: 05-03-1991 COVID-19 VACCINE (#1) COVID-19 VACCI NE (#1) [facility] Start: 1990 HEPATITIS B (1 of 3 - 3-dose series) HEPATITIS B (1 of 3 - 3-dose series) [facility] Payers Date Payer Category Payer Unknown [employer] [id number] 2022-Present [phone] [address] [address] [place] [address] PPO [id number] 2022 Unknown [id number] 1990 Unknown [id number] 1959 Self-pay [id number] Unknown [id number] Social History Date Type Detail Facility [facility]: [facility] History of tobacco use Cigarette Smoker C [facility] Start: 06-14-2022 Tobacco use and exposure Smoke less tobacco non-user [facility] Start: 06-14-2022 Alcohol intake Current drinke r of alcohol (finding) [facility] Start: 05-22-2019 History SDOH Alcohol Frequency 4 [facility] Start: 05-22-2019 History SDOH Alcohol Std Drinks 3 [facility] Start: 05-22-2019 History SDOH Social Connections Phone 1 [facility] Start: 05-22-2019 History SDOH Social Connections Membership 2 [facility] Start: 05-22-2019 History SDOH Social Connections Living 8 [facility] Start: 05-22-2019 History SDOH Physica l Activity DPW 7 [facility] Start: 05-22-2019 History SDOH Physica l Activity MPS 15 [facility] Start: 05-22-2019 History SDOH Stress 5 [facility] Start: 06-14-2022 Tobacco Comment 4-5 a day [facility] Start: 1990 Sex Assigned At Not on file C [facility] Progress note 06-14-2022 Note Date & Type Note Facility 06-14-2022 Note HNO ID: [id number] Author: Traci Ayala RT(R) Service: Radiology Author [...] RT Bo(R) June 14, 2022 1:06 PM [facility] Progress note 06-14-2022 Note Date & Type Note Facility 06-14-2022 Note HNO ID: [id number] Author: Sherri Seaman APRN.DIRECTOR NICU Service: ? Author Type: Nurse Practitioner Type: Progress Notes Filed: 06/14/2022 1:33 PM Note Text: Subjective The history is provided by the patient. No multi disciplined language analyst was used. HPI Payton Steiner is a [...] have confirmed and edited as necessary, the [facility] Review of Systems Constitutional: Negative for chills [...] warranting prompt ER evaluation. Sherri Seaman APRN.CNP [facility] Instructions 06-14-2022 Patient Instructions Note Date [...] AMAN HELMS MD documented in this encounter [facility] History of Present illness Narrative 06-14-2022 Sherri Seaman APRN.CNP - 06/14/2022 12:58 PM EDT Note Date & Type Note Facility 06-14-2022 History of Presen t illness Narrative Subjective The history is provided by the patient. No multi disciplined language analyst was used. HPI Payton Steiner is a [...] have confirmed and edited as necessary, the [facility] Review of Systems Constitutional: Negative for chills [...] Sherri Seaman APRN.SOFIE documented in this encounter [facility] Evaluation note Note Date & Type Note Facility documented in this encounter [facility] Reason for referral (narrative) Diagnostic Procedure Only (Urgent) - Pending Review Note Date & Type Note Facility Referral ID Status Reason Start Date Expiration Date Visits Requested Visits Authorized [id number] Pending Review Auto-Generat ed Referral 06/14/2022 07/14/2023 1 1 [facility] Summary Purpose Family History No Family History Records FoundNo Family History Records FoundNo Family History Records Found Advance Directives No Advanced Directives Records FoundNo Advanced Directives Records FoundNo Advanced Directives Records Found Additional Source Comments INFORMATION SOURCE (unrecogn ized section and content) DATE CREATED AUTHOR AUTHOR'S ORGANIZ ATION 06/17/2022 [facility] DATE CREATED AUTHOR AUTHOR'S ORGANIZ ATION 12/23/2022 [facility] Source Comments (unrecognize d section and content) In the event this informatio n is protected by the Federal Confidentiality of Alcohol and Drug Abuse Patient Records regulations: The Federal rules restrict any use of the information to criminally investigate or prosecute any alcohol or drug abuse patient.[facility] Reason for Visit (unrecogniz ed section and content) Specialty Diagnoses / Procedures Referred By Castillo astorga Referred To Contact Family Medicine / [facility] Diagnoses RM 10 right ring finger injury, slammed in car door today Procedures EST SAME DAY Self Sherri Seaman APRN.DIRECTOR NICU [address] [id number] Referral ID Status Reason Start Date Expiration Date Visits Re quested Visits Authorized [id number] Denied 06/14/2022 09/12/2022 1 0 FOR RECORDS [...] BE BASED ON THE PRIMARY CLINICAL RECORDS. [employer] [facility]. provides no warranty or guarantee of the accuracy or completeness of information in this document.
[2023-04-28 02:56] LABS: Hematocrit 37.4 % (37-47); Mean Corp Hgb Conc 34.8 g/dL (32-36); Mean Corpuscular Hgb 31.8 pg (27.0-32.0); Mean Corpuscular Volume 91.4 fL (81-99); Mean Platelet Vol. 11.4 fl (6.2-12.0); Platelet Count 196 K/mm3 (150-450); RBC Distribution Width CV 13.1 % (11.6-14.6); RBC Distribution Width SD 43.7 fl (35.1-43.9); Red Blood Count 4.09 M/mm3 (4.2-5.4); White Blood Count 11.5 K/mm3 (4.4-11.0)
[2023-04-28 03:02] LABS: ROM Internal Control Test YES-OK TO RESULT pt. (Internal QC)
[2023-04-28 03:03] LABS: ROM Patient Test POSITIVE (Negative)
--- OUTSIDE RECORDS SUMMARY | 2023-04-28 03:06 | XMS RPT_ITS | CCD ---
Author Name Unknown Address [address] [place] [address] Organization [facility] Care Team Providers Care Dining Car Waiter/Waitress Name Role Phone TONI MESA Unavailable Unavailable TONI MESA Unavailable Unavailable AA NO PCP, NO PCP Unavailable Unavailable Unavailable Primary Care Provider SHERRI Fay Referring Unavailable NO PRIMARY CARE, Primary Care Unavailable KEEGAN WINKLER Referring UnavailYANIRA Rouse Attending Unavailable Allergies Allergy Classification Reported Allergen(s) Allergy Type Date of Onset Reaction(s) Facility (2 sources) Aspirin; Translations: [ASPIRIN] Drug Allergy 05-22-2019 Unknown [facility] Medications Completed/Discontinued Medications Medication Drug Class(es) [...] 12-21-2016 Episodic Other aftercare (1 source) Other usp (current) drug therapy; Translations: [OTH ENGINE CLEANER CURRENT DRUG THERAPY] Onset: 12-21-2016 Episodic Other [...] 97.2 [degF] Sherri Seaman APRN.SOFIE Work Phone: [facility] 06-14-2022 12:53-0400 Body weight 75.3 kg Sherri Seaman APRN.CNP Work Phone: [facility] 06-14-2022 12:53-0400 Diastolic blood pressure 68 mm[Hg] Sherri Seaman APRN.SOFIE Work Phone: [facility] 06-14-2022 12:53-0400 Heart rate 78 /min Sherri Seaman APRN.CNP Work Phone: [facility] 06-14-2022 12:53-0400 Respiratory rate 16 /min Sherri Seaman APRN.SOFIE Work Phone: [facility] 06-14-2022 12:53-0400 SaO2% (BldA) [Mass fraction] 99 % Sherri Seaman APRN.CNP Work Phone: [facility] 06-14-2022 12:53-0400 Systolic blood pressure 110 mm[Hg] Sherri Seaman APRN.CNP Work Phone: [facility] Encounters Encounter Date Encounter Type Care Provider Facility Start: 12-22-2022 End: 12-22-2022 ambulatory MD [facility] Start: 06-14-2022 End: 06-14-2022 ambulatory SHERRI SEAMAN Facility:[facility] Start: 06-14-2022 End: 06-14-2022 Patient encounter procedure Sherri Seaman APRN.CNP Work Phone: [facility] Plan of Treatment Date Care Activity Detail Author Start: 05-21-2024 PAP TESTING PAP TESTING [facility] Start: 11-11-2022 Influenza vaccination INFLUENZA (Sea son Ended) [facility] Start: 03-13-2022 DEPRESSION ASSESSMENT DEPRESSION ASS ESSMENT [facility] Start: 2020 HPV TESTING HPV TESTING [facility] Start: 2009 Urine microalbumin profile DTAP,TDAP,TD (1 - Tdap) [facility] Start: 2008 HEPATITIS C SCREENING HEPATITIS C SC YOMAIRA [facility] Start: 2008 HIV SCREENING HIV SCREENING [facility] Start: 1996 PNEUMOCOCCAL (1 - PCV) PNEUMOCOCCAL (1 - PCV) [facility] Start: 05-03-1991 COVID-19 VACCINE (#1) COVID-19 VACCI NE (#1) [facility] Start: 1990 HEPATITIS B (1 of 3 - 3-dose series) HEPATITIS B (1 of 3 - 3-dose series) [facility] Payers Date Payer Category Payer Unknown [employer] [id number] 2022-Present [phone] [address] [address] [place] [address] PPO [id number] 2022 Unknown [id number] 1990 Unknown [id number] 1959 Self-pay [id number] Unknown [id number] Social History Date Type Detail Facility Start: 06[facility]14-2022 [facility] History of tobacco use Cigarette Smoker [facility] Start: 06-14-2022 Tobacco use and exposure Smoke less tobacco non-user [facility] Start: 06-14-2022 Alcohol intake Current drinke r of alcohol (finding) [facility] Start: 05-22-2019 History SDOH Alcohol Frequency 4 [facility] Start: 05-22-2019 History SDOH Alcohol Std Drinks 3 [facility] Start: 05-22-2019 History SDOH Social Connections Phone 1 [facility] Start: 05-22-2019 History SDOH Social Connections Membership 2 [facility] Start: 05-22-2019 History SDOH Social Connections Living 8 [facility] Start: 05-22-2019 History SDOH Physica l Activity DPW 7 [facility] Start: 05-22-2019 History SDOH Physica l Activity MPS 15 [facility] Start: 05-22-2019 History SDOH Stress 5 [facility] Start: 06-14-2022 Tobacco Comment 4-5 a day [facility] Start: 1990 Sex Assigned At Not on file [facility] Progress note 06-14-2022 Note Date & Type Note Facility 06-14-2022 Note HNO ID: [id number] Author: Traci Ayala RT(R) Service: Radiology Author [...] RT Bo(R) June 14, 2022 1:06 PM [facility] Progress note 06-14-2022 Note Date & Type Note Facility 06-14-2022 Note HNO ID: [id number] Author: Sherri Seaman APRN.INSURANCE FOLLOW UP REP Service: ? Author Type: Nurse Practitioner Type: Progress Notes Filed: 06/14/2022 1:33 PM Note Text: Subjective The history is provided by the patient. No speech and language assistant was used. HPI Payton Steiner [...] have confirmed and edited as necessary, the [facility] Review of Systems Constitutional: Negative [...] warranting prompt ER evaluation. Sherri Seaman APRN.CNP [facility] Instructions 06-14-2022 Patient Instructions Note Date [...] AMAN HELMS MD documented in this encounter [facility] History of Present illness Narrative 06-14-2022 Sherri Seaman APRN.CNP - 06/14/2022 12:58 PM EDT Note Date & Type Note Facility 06-14-2022 History of Presen t illness Narrative Subjective The history is provided by the patient. No speech and language assistant was used. HPI Payton Steiner [...] have confirmed and edited as necessary, the [facility] Review of Systems Constitutional: Negative [...] Sherri Seaman APRN.SOFIE documented in this encounter [facility] Evaluation note Note Date & Type Note Facility documented in this encounter [facility] Reason for referral (narrative) Diagnostic Procedure Only (Urgent) - Pending Review Note Date & Type Note Facility Referral ID Status Reason Start Date Expiration Date Visits Requested Visits Authorized [id number] Pending Review Auto-Generat ed Referral 06/14/2022 07/14/2023 1 1 [facility] Summary Purpose Family History No Family History Records FoundNo Family History Records FoundNo Family History Records Found Advance Directives No Advanced Directives Records FoundNo Advanced Directives Records FoundNo Advanced Directives Records Found Additional Source Comments INFORMATION SOURCE (unrecogn ized section and content) DATE CREATED AUTHOR AUTHOR'S ORGANIZ ATION 06/17/2022 [facility] DATE CREATED AUTHOR AUTHOR'S ORGANIZ ATION 12/23/2022 [facility] Source Comments (unrecognize d section and content) In the event this informatio n is protected by the Federal Confidentiality of Alcohol and Drug Abuse Patient Records regulations: The Federal rules restrict any use of the information to criminally investigate or prosecute any alcohol or drug abuse patient.[facility] Reason for Visit (unrecogniz ed section and content) Specialty Diagnoses / Procedures Referred By Castillo astorga Referred To Contact Family Medicine / [facility] Diagnoses RM 10 right ring finger injury, slammed in car door today Procedures EST SAME DAY Self Sherri Seaman APRN.INSURANCE FOLLOW UP REP [id number] [place] [place] [id number] Referral ID Status Reason Start Date Expiration Date Visits Re quested Visits Authorized [id number] Denied 06/14/2022 09/12/2022 1 0 FOR RECORDS [...] BE BASED ON THE PRIMARY CLINICAL RECORDS. [employer] [facility]. provides no warranty or guarantee of the accuracy or completeness of information in this document.
[2023-04-28 03:27] LABS: AST(SGOT) 18 U/L (15-37); Alanine Aminotransfer ALT/SGPT 30 U/L (13-56); Creatinine, Serum 0.73 mg/dL (0.55-1.02); EST Glomerular Filtration Rate 98 mL/min (>60); Est Glom Filt Rate - Afr Amer 118 mL/min (>60)
[2023-04-28 03:57] LABS: Amphetamine Urine VISTA NEGATIVE (<1000 ng/mL); Barbiturate Urine VISTA NEGATIVE (< 200 ng/mL); Benzodiazepine Urine VISTA NEGATIVE (< 200 ng/mL); Cocaine Urine VISTA NEGATIVE (< 300 ng/mL); Ecstacy Urine VISTA NEGATIVE (< 500 ng/mL); Methadone Urine VISTA NEGATIVE (< 300 ng/mL); PCP Urine VISTA NEGATIVE (< 25 ng/mL); THC Urine VISTA NEGATIVE (< 50 ng/mL); Vista UDS pH Range 5
[2023-04-28] MEDS: 0.9% Saline Lock 10 ML Syringe IV (04:02)
[2023-04-28] MEDS: Mag Hydrox/Al Hydrox/Simeth 30 ML UDC PO ×2 (04:05→10:09)
[2023-04-28 04:13] LABS: Syphilis Antibodies Non-reactive
--- NOTE | 2023-04-28 05:01 | HP.PCM.OB_ITS ---
HPI - General General Date of Admission: 04/28/23 HPI Narrative DAVID POST, is a 32 F who presents Maternal Data Information MANUEL Calculator Estimated Delivery Date Method Current WG Current Estimate 05/08/23 Ultrasound #1 38w 4d Other Estimates 04/21/23 LMP (Uncertain) 41w 0d PFSH PFS Medical History (Updated 04/28/23 @ 05:[address] Meena Luciano MD) Anxiety History of anemia History of asthma History of back pain history of knee pain Trauma Uterine anomaly Home Medications multivitamin no.47-iron fum 27 mg-folate no.1 1 mg-dha 300 mg capsule (PNV-DHA) cap PO 09/02/22 [History Last Taken 04/27/23] buspirone 10 mg tablet 10 mg PO BID #30 tabs 11/11/22 [Rx Last Taken Unknown] ferrous fumarate 325 mg (106 mg iron) tablet 325 mg PO DAILY 04/03/23 [History Last Taken Unknown] Allergy/AdvReac Type Severity Reaction Status Date / Time No Known Allergies Allergy Verified 04/28/23 02:25 Social History adopted: Yes household members: significant other and children number of children: 1 current occupational status: employed current occupation: [employer] current occupational exposures/hazards: Yes (dust dirt- has N95 to wear) pets and animals: Yes (not managing litter box) pets and animals: cat(s) history of recent travel: Yes ([place]) out of state: Yes out of country: No sexually active: Yes Smoking Status: Former smoker Tobacco: How many years used: 8 quit status: quit date established counseling given: counseling >3 minutes alcohol intake: never substance use type: marijuana well-balanced diet: rarely or never caffeine: Yes Type: tea Number of servings: 1 eating out: 1-3 times/week during the past year weight has: decreased > 10 lbs what type of physical activity do you participate in: none yesenia/mosque: None seatbelt use: always do you feel safe at home: Yes 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 History 1 Elective abortions Hx Para 0 Spontaneous abortions Hx # Term Pregnancies Ectopic pregnancies Hx # Pregnancies Multiple births # of living children Visit Details Expected Delivery Route/Plan Labor Preferences- CB/BF classes: [] labor support person: [] labor intervention preferences: [] pain management options preferred: open to epidural would like to do unmedicated cut cord/dad catch: [] : [] PP control planned: [] discussed possible routes of delivery and associated risks: [] special requests: [] Plans Covid status: [] Flu vaccine: [] Tdap vaccine: [] Rhogam: [] LARC form signed: completed. Problem list reviewed and updated with the most current plan of care details and appropriate orders placed. Relevant counseling for the gestational age provided. Continue routine care and follow up unless otherwise noted in visit notes/problem list details OB Flowsheet Initial Weight: Not Recorded Date -?-?-?-?-?-?-?-?-?-?-?-?- EGA Weight BP Urine Prot -?-?-?-?-?-?-?-?-?-?-?-?- Glucose FHR FuHt Pres Dilation -?-?-?-?-?-?-?-?-?-?-?-?- Effaced St Visit Note 09/08/22 -?-?-?-?-?-?-?-?-?-?-?-?- 5w 3d 156 lb 4 oz 112/65 -?-?-?-?-?-?-?-?-?-?-?-?- -?-?-?-?-?-?-?-?-?-?-?-?- SM_ GS measuring 10 mm with yolk sac seen unsure if pole present, recommend repeat US In 1 week 10/14/22 -?-?-?-?-?-?-?-?-?-?-?-?- 10w 4d 150 lb 118/67 118/67 -?-?-?-?-?-?-?-?-?-?-?-?- 160 -?-?-?-?-?-?-?-?-?-?-?-?- SM- measuring 10 weeks viable IUP seen NIPT drawn today nob labs drawn gcc collected 11/11/22 -?-?-?-?-?-?-?-?-?-?-?-?- 14w 4d 149 lb 2 oz 113/75 -?-?-?-?-?-?-?-?-?-?-?-?- 150 -?-?-?-?-?-?-?-?-?-?-?-?- KW-No vb/crampin g. AFP declined. US ordered. not feeling well over last week urine sent KW-No vb/cramping. AFP decli patrick. US ordered. not feeling well over last week urine ordered. requested increase in Buspar. 12/09/22 -?-?-?-?-?-?-?-?-?-?-?-?- 18w 4d 154 lb 101/57 Negative -?-?-?-?-?-?-?-?-?-?-?-?- Negative 150 -?-?-?-?-?-?-?-?-?-?-?-?- KW- no vb/lof/ct x. good fm. feeling stress with 8yr old. recommend taking Buspar prior to leaving work to see if it helps with mood at home in evening. would like US with MFM. will place order 01/06/23 -?-?-?-?-?-?-?-?-?-?-?-?- 22w 4d 167 lb 4 oz 126/62 Nega tive -?-?-?-?-?-?-?-?-?-?-?-?- Negative 144 -?-?-?-?-?-?-?-?-?-?-?-?- JV- pt complains of intermittent nipple infections secondary to an old nipple piercing. There is no purulent material or redness present. sending pt home with redtop to collect sample when and if it happens again and starting broad spectrum abx in meantime. 02/17/23 -?-?-?-?-?-?-?-?-?-?-?-?- 28w 4d 175 lb 101/66 -?-?-?-?-?-?-?-?-?-?-?-?- 140 -?-?-?-?-?-?-?-?-?-?-?-?- LC-no vb/ctx/lof . good fm. 28 labs pending. did not start abx, no further nipple discharge. 02/27/23 -?-?-?-?-?-?-?-?-?-?-?-?- 30w 0d 177 lb 4 oz 113/65 Nega tive -?-?-?-?-?-?-?-?-?-?-?-?- Negative 140 -?-?-?-?-?-?-?-?-?-?-?-?- JV- no lof, vagi nal bleeding, or dec fm. getting some calf pain at night roberto horse 04/03/23 -?-?-?-?-?-?-?-?-?-?-?-?- 35w 0d 191 lb 114/74 -?-?-?-?-?-?-?-?-?-?-?-?- 135 33.5 -?-?-?-?-?-?-?-?-?-?-?-?- LC- no vb/ctx/lo f. good fm. obtaining growth this week for asthma hx. 04/21/23 -?-?-?-?-?-?--?-?-?-?-?-?- 37w 4d 191 lb 122/76 Trace -?-?-?-?-?-?-?-?-?-?-?-?- Negative 130 36 2 -?-?-?-?-?-?-?-?-?-?-?-?- 60 -3 KW- no vb/ lof/ctx. good fm. plan reviewed KW- no vb/lof/ctx. good fm. plan reviewed. Had growth US last week. measuring 37%. GBS today Vital Signs Vital Signs Vital Signs: 04/28/23 02:08 04/28/23 02:08 04/28/23 02:12 Temperature Temperature Source Oral Pulse Rate 65 Blood Pressure 143/87 H BP Systolic 143 BP Diastolic 87 Pulse Ox 04/28/23 02:12 04/28/23 02:12 04/28/23 02:25 Temperature 98.4 F Temperature Source Pulse Rate Blood Pressure 159/84 H BP Systolic 159 BP Diastolic 84 Pulse Ox 99 04/28/23 02:25 04/28/23 02:43 04/28/23 02:43 Temperature Temperature Source Pulse Rate 65 69 Blood Pressure 135/84 H BP Systolic 135 BP Diastolic 84 Pulse Ox 04/28/23 02:56 04/28/23 02:56 04/28/23 04:03 Temperature Temperature Source Pulse Rate 66 67 Blood Pressure 144/90 H BP Systolic 144 BP Diastolic 90 Pulse Ox 04/28/23 04:03 04/28/23 04:04 04/28/23 04:05 Temperature Temperature Source Oral Pulse Rate Blood Pressure 143/88 H BP Systolic 143 BP Diastolic 88 Pulse Ox 100 04/28/23 04:05 04/28/23 04:04 04/28/23 04:04 Temperature 98.2 F Temperature Source Pulse Rate 65 Blood Pressure BP Systolic BP Diastolic Pulse Ox 99 Weight Weight: 196 lb 13.965 oz Body Mass Index (BMI) 34.9 Labs Labs Labs: Blood Type O POSITIVE Antibody Screen NEGATIVE Hct 37.4 % (37-47) Hgb 13.0 g/dL (12.0-15.0) Obstetrics Ultrasound Syphilis Total Ab Non-reactive Rubella IgG Antibody Reactive (Nonreactive) Hep Bs Antigen Non-Reactive (Nonreactive) Hepatitis C Antibody Non-Reactive (Nonreactive) Chlamydia DNA (ELIZABETH) Negative (Negative) N.gonorrhoeae DNA (ELIZABETH) Negative (Negative) HIV 1&2 Antibody Non-Reactive (Nonreactive) Glucose 1 Hr 50 gm 106 mg/dL (70-140) Laboratory Tests 04/28/23 04/28/23 Range/Units 02:40 02:23 WBC 11.5 H (4.4-11.0) K/mm3 RBC 4.09 L (4.2-5.4) M/mm3 Hgb 13.0 (12.0-15.0) g/dL Hct 37.4 (37-47) % MCV 91.4 (81-99) fL MCH 31.8 (27.0-32.0) pg MCHC 34.8 (32-36) g/dL RDW Std Deviation 43.7 (35.1-43.9) fl RDW Coeff of [place] 13.1 (11.6-14.6) % Plt Count 196 (150-450) K/mm3 MPV 11.4 (6.2-12.0) fl Creatinine 0.73 (0.55-1.02) mg/dL Estim Creat Clear Calc 117.30 ml/min Est GFR (MDRD) Af Amer 118 (>60) mL/min Est GFR (MDRD) Non-Af 98 (>60) mL/min Uric Acid 4.0 (2.6-6.0) mg/dL AST 18 (15-37) U/L ALT 30 (13-56) U/L Vag Amniotic Fld Detect POSITIVE H (Negative) Urine Opiates Screen NEGATIVE (< 300 ng/mL) Urine Methadone Screen NEGATIVE (< 300 ng/mL) Ur Barbiturates Screen NEGATIVE (< 200 ng/mL) Ur Phencyclidine Scrn NEGATIVE (< 25 ng/mL) Ur Amphetamines Screen NEGATIVE (<1000 ng/mL) MDMA (Ecstasy) Screen NEGATIVE (< 500 ng/mL) U Benzodiazepines Scrn NEGATIVE (< 200 ng/mL) Urine Cocaine Screen NEGATIVE (< 300 ng/mL) U Cannabinoids Screen NEGATIVE (< 50 ng/mL) Ur Drug Screen Comment Syphilis Total Ab Non-reactive Blood Type O POSITIVE Antibody Screen NEGATIVE Assessment & Plan (1) COVID: (2) Depression: COMMENT: maldonado restarted for anxiety, was on lexapro in the past also, saw counseling center. feeling improved symptoms with counseling. (3) Asthma: COMMENT: intermittent use of inhaler plan 36 week growth scan (4) Supervision of high-risk : COMMENT: PRR, , MANUEL 04/21/23 Boyfriend-Mustapha(Bill 8yo-lives with them finisher fiberglass boat parts, [id number] with mother) (5) : QUALIFIERS: Weeks of gestation: 37 weeks Qualified Code(s): Z3A.37 - 37 weeks gestation of COMMENT: GBS neg, NIPT low risk, discussed carrier testing. nl anatomy (6) SROM (spontaneous rupture of membranes): (7) Active labor at term: (8) Gestational hypertension: PLAN: Plan Patient presents IAL, plan expectant management for , pitocin PRN Pain management: open to epidural. GBS neg. Management of any complications: covid pos- precautions planned gestational htn, monitor bps, labs WNL I have reviewed the [facility] and made any clinically relevant updates.
[2023-04-28 05:29] LABS: Protein, Urine (Random) 27.3 mg/dL (<11.9); Protein:Creat Ratio 190 mg/g CRE (0-200)
[2023-04-28] MEDS: Lactated Ringers 1,000 ML 200 ML IV ×2 (05:50→11:15)
[2023-04-28] MEDS: fentaNYL-bupivacaine (epidural) 100 ML BAG EPIDURAL (15:43)
[2023-04-28] MEDS: Amnioinfusion- 0.9% NS 1,000 ML IV.SOLN. 300 ML INTRA-UTER (16:41)
--- NOTE | 2023-04-28 17:29 | PCM.PN.BLA ---
Progress Note patient evaluted for intermittent variables and late decels for 45 minutes. no labor progression since 10 am ove r7 hours. 7 cm now feeling more like 6 cm with cervical swelling, amnioinfusion done, position changes, OP presentation and minimal variability. abnormal labor progress with non reassuring FHT, decision for primary section. discussed with patient and will proceed with delivery.
[2023-04-28] MEDS: Acetaminophen 500 MG Tablet PO (17:33)
--- NOTE | 2023-04-28 17:33 | EX.PCM.OBRPT ---
Assessment & Plan (1) Gestational hypertension: (2) Non-reassuring heart rate with late deceleration: (3) delivery delivered: COMMENT: LTCS rhoda BACAHTS covid 38 7 cm narrow pelvis from above (4) Supervision of high-risk : COMMENT: PRR, , MANUEL 04/21/23 Boyfriend-Mustapha(Bill 8yo-lives with them frozen food department manager, [id number] with mother) (5) Depression: COMMENT: maldonado restarted for anxiety, was on lexapro in the past also, saw counseling center. feeling improved symptoms with counseling. (6) : QUALIFIERS: Weeks of gestation: 37 weeks Qualified Code(s): Z3A.37 - 37 weeks gestation of COMMENT: GBS neg, NIPT low risk, discussed carrier testing. nl anatomy (7) Asthma: COMMENT: intermittent use of inhaler plan 36 week growth scan (8) 37 weeks gestation of : (9) COVID: (10) Active labor at term: (11) SROM (spontaneous rupture of membranes): Maternal Data Information MANUEL Calculator Estimated Delivery Date Method Current WG Current Estimate 05/08/23 Ultrasound #1 38w 5d Other Estimates 04/21/23 LMP (Uncertain) 41w 1d Final MANUEL Source: LMP Gestational age: 39 Details Operative Information Date of Procedure: 04/28/23 Pre-Operative Diagnosis: see a/p diagnoses Post-Operative Diagnosis: same Indications for : Nonreassuring Status Indications Narrative: surgeon: Meena Luciano MD Classification: EROS Procedure Type: low transverse parole hearing officer #1: Megan Lunsford Type of Anesthesia: Epidural Special Medications: kailey Drain: De Leon to straight drain Estimated Blood Loss: 700 Fluids Replaced: crystalloid Procedure Start Time: 17:55 Procedure Stop Time: 18:58 Findings Description of Procedure: Patient presented active labor with spontaneous rupture membranes. Patient tested positive for COVID 5 days prior. She proceeded to 7 cm dilation and experienced arrest of dilation. Patient underwent epidural anesthesia. Patient developed recurrent variable decelerations and then recurrent late decelerations. position changes and amnioinfusion were run, attempted rotation from OP to OA which was unsuccessful. patient was then checked and felt to be closer to 6 cm with a swollen cervix. decision was made to proceed with a primary section. The patient was placed in the dorsal supine position with leftward tilt. Patient was prepped and draped in the normal sterile fashion. Pfannenstiel skin incision was made with the scalpel and carried through to the underlying layer of fascia with the scalpel. Fascia was nicked in the midline and the incision extended laterally. The rectus bellies were dissected off superiorly and inferiorly with out complication both sharply and bluntly. The peritoneum was entered digitally. The incision was stretched and a low transverse uterine incision was made with the scalpel. The infant's head was noted to be wedged within the narrow pelvis, although she had only been 6-7 and a -1 station. careful maneuvering to elevate the head out of the pelvis in order to deliver it safely, noted in the direct op position, the head was delivered atraumatically followed by the anterior and posterior shoulders without complication the rest of the delivered. The cord was clamped and cut and the was handed off to awaiting nurse. The placenta was delivered spontaneously immediately following and was noted to be intact and have a three-vessel cord. The uterus was exteriorized cleared of all clots and debris, and the incision was closed in a single layer closure using #1 Monocryl. The ovaries and fallopian tubes were noted to be within normal limits. The uterus was returned to the maternal abdomen and gutters were cleared of all clots and debris. kailey used on the incision to ensure hemostasis. The peritoneum was closed with 3-0 Monocryl in a running fashion. Fascia was closed with 0 PDS in a running fashion. Subcutaneous tissue was copiously irrigated and the skin was closed with 3-0 Monocryl in a subcuticular fashion. Mepilex dressing was applied without complication. Patient was taken to recovery in stable condition. Placental Delivery Description: Spontaneous Placenta Disposition: [facility] Cord Vessel Description: 3 Vessels Delayed Cord Clamping: Yes Complications Risks of Surgery Discussed w/Patient: Bleeding, Infection, Need for Future C-Sections and Injury to surrounding structure(s) including bowel and bladder Complications: none Admit VTE Documentation VTE Present on Admission: No VTE Mechan Device Prophylaxis: SCD's Procedures Urinary/Genital [id number]: [id number] Delivery [facility]
[2023-04-28] MEDS: Sodium Citrate/Citric Acid 30 ML UDC PO (17:34)
[2023-04-28] MEDS: Cefazolin 2 GM in 0.9% Normal Saline (100mL Bag) 100 ML IV (17:43)
[2023-04-28] MEDS: Azithromycin 500 MG in Dextrose 5%-Water (250mL Bag) 250 ML 250 MG IV (17:48)
--- NOTE | 2023-04-28 18:32 | DCINST_ITS ---
Discharge Instructions Diet Discharge Diet: No restrictions Activity Discharge Activity: May Not Drive (for 2 weeks or while taking narcotic pain medications.), May Shower and May Take a Tub Bath (in 7 days) May shower in (days): 0 May resume sexual activity in: 4-6 weeks Weight Bearing Status: Full weight bearing Lifting Restrictions: 20 pounds Dressing / Incision Call your doctor if your incision/area has: Continuous Slow Oozing, Sudden Increased Bleeding, Increased Pain/ Swelling, Increased Redness and Foul Smelling Discharge Call your doctor if you observe: Fever of 101 or Higher and Using more than 1 pad per hour (for 2 hours) Suture Line Care: Avoid Pulling/Pushing and Avoid Pinching/Bending Cleanse incision/area with: Soap & Water and Keep Dressing Clean & Dry Follow Up Care Please Follow Up With: Meena Luciano MD When: Call [phone] to make an appointment for an incision check in 1-2 weeks. Test Results: Test results from this visit will be discussed in further detail at your follow- up appointment, if applicable. Discharge Plan Admission Admit Date/Time: 04/28/23 03:03 Attending Provider: Meena Luciano Primary Care Provider: Care PhysicianMahsa Primary Discharge Orders/Prescriptions Prescriptions: New oxycodone-acetaminophen [Percocet] 5-325 mg tablet 1 tab PO Q6H PRN (Reason: pain) 7 Days Qty: 20 0RF naproxen [naproxen] 500 mg tablet 500 mg PO BID PRN PRN (Reason: Pain) Qty: 30 1RF No Action PNV-DHA 27 mg iron-1 mg -300 mg capsule PO buspirone 10 mg tablet 10 mg PO BID Qty: 30 12RF ferrous fumarate 325 mg (106 mg iron) tablet 325 mg PO DAILY Referrals / Follow Up: Care PhysicianMahsa Primary [Primary Care Provider] - Disposition Disposition (needs filled in before D/C Order can be placed): Home, Self Care
[2023-04-28] MEDS: Oxytocin 15 Units/NS 250ml 15 UNITS/250 ML IV.SOLN 83 UNITS IV (19:13)
[2023-04-28] MEDS: Ketorolac 30 MG/ML Syringe IV (19:53)
[2023-04-28] MEDS: busPIRone 5 MG Tablet 10 MG PO (22:24)
[2023-04-28] MEDS: Lactated Ringers 1,000 ML 100 ML IV (22:24)
[2023-04-28] MEDS: Acetaminophen 500 MG Tablet 1000 MG PO (23:53)
--- NOTE | 2023-04-28 23:54 | NURSING ---
epidural cath removed by this RN. blue tip intact.
[2023-04-29] MEDS: Ketorolac 30 MG/ML Syringe IV ×3 (01:50→14:26)
[2023-04-29 01:52] VITALS: BP 107/63; PULSE 75; RESP 18; O2SAT 97
[2023-04-29 02:20] LABS: Pathology Specimen OB SEE PATHOLOGY REPORT
[2023-04-29 03:56] VITALS: BP 122/64; PULSE 73; RESP 20; O2SAT 98
--- NOTE | 2023-04-29 05:15 | PCM.PN.OB ---
Subjective Subjective Patient doing well without complaints. Tolerating PO. Ambulating and voiding without difficulty. feeding well. Denies chest pain, shortness of breath, calf pain/swelling, fevers, chills, lightheadedness. Objective Data Objective Data Vital Signs: Vital Signs Temp Pulse Resp BP Pulse Ox O2 Del Method 98.6 F 73 20 H 122/64 H 98 Room Air 04/28/23 19:15 04/29/23 03:56 04/29/23 03:56 04/29/23 03:56 04/29/23 03:56 04/29/23 03:56 Oxygen Delivery Method Room Air Weight: 196 lb 13.965 oz Body Mass Index (BMI) 34.9 Intake & Output: Intake and Output for Last 24 Hours 04/27/23 04/28/23 04/29/23 23:59 23:59 23:59 Intake Total 2615 / 2615 Output Total 1700 / 1700 Balance 915 / 915 Lab / Micro Data 04/28/23 02:40 04/28/23 02:40 Labs: Laboratory Results - last 24 hr 04/28/23 02:40: U Random Total Protein 27.3 H, Urine Creatinine 144.00, Protein/Creatinin Ratio 190 ROS Constitutional Constitutional: Reports systems reviewed and no addt'l complaints, except as documented Cardiovascular Cardiovascular: Reports systems reviewed and no addt'l complaints, except as documented Respiratory/Chest Respiratory/Chest: Reports systems reviewed and no addt'l complaints, except as documented Gastrointestinal Gastrointestinal: Reports systems reviewed and no addt'l complaints, except as documented Physical Exam Const alert, oriented x3 and no apparent distress HEENT Head and Scalp: atraumatic Resp normal respiratory effort GI soft to palpation and non-tender Inspection: incision intact, healing well and drainage (none) Bimanual Exam - Vag & Uterus: uterus non-tender Uterus Palpation: uterus fundus firm (below Umbilicus) Assessment & Plan (1) delivery delivered: COMMENT: LTCS boy Jason NRFHTS covid 38 7 cm narrow pelvis from above (2) Gestational hypertension: (3) COVID: (4) Marijuana smoker: COMMENT: occasional for anxiety, counseling provided. stopped around 35 weeks. (5) Asthma: COMMENT: intermittent use of inhaler plan 36 week growth scan (6) Depression: COMMENT: buspar restarted for anxiety, was on lexapro in the past also, saw counseling center. feeling improved symptoms with counseling. PLAN: Plan s/p LTCS PPD # 1 1. routine post care 2. breast feeding- support given 3. rh positive 4. rubella immune
[2023-04-29] MEDS: Acetaminophen 500 MG Tablet 1000 MG PO ×3 (06:02→19:25)
[2023-04-29] MEDS: Enoxaparin 40 MG/0.4 ML Syringe SC (06:03)
[2023-04-29 06:15] LABS: Hematocrit 32.3 % (37-47); Mean Corp Hgb Conc 34.1 g/dL (32-36); Mean Corpuscular Hgb 31.3 pg (27.0-32.0); Mean Platelet Vol. 10.9 fl (6.2-12.0); Platelet Count 187 K/mm3 (150-450); RBC Distribution Width CV 13.6 % (11.6-14.6); RBC Distribution Width SD 45.2 fl (35.1-43.9); Red Blood Count 3.51 M/mm3 (4.2-5.4)
[2023-04-29 08:15] VITALS: BP 115/70; PULSE 72; RESP 16; TEMP 36.8; O2SAT 99
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
[2023-04-29] MEDS: busPIRone 5 MG Tablet 10 MG PO ×2 (10:26→22:48)
[2023-04-29] MEDS: Senna/Docusate Sodium 1 Tablet PO (10:26)
[2023-04-29 12:35] VITALS: BP 115/71; PULSE 84; RESP 16; TEMP 36.7; O2SAT 97
[2023-04-29] MEDS: 0.9% Saline Lock 10 ML Syringe IV (14:26)
[2023-04-29 16:30] VITALS: BP 119/70; PULSE 72; RESP 16; TEMP 36.7; O2SAT 98
[2023-04-29 19:50] VITALS: BP 112/72; PULSE 80; RESP 18; TEMP 36.4; O2SAT 97
[2023-04-29] MEDS: Naproxen 500 MG Tablet PO (20:42)
[2023-04-30] MEDS: Acetaminophen 500 MG Tablet 1000 MG PO ×2 (00:58→07:00)
[2023-04-30 01:00] VITALS: BP 112/71; PULSE 85; RESP 16; TEMP 36.7; O2SAT 98
[2023-04-30] MEDS: SimETHICONE 80 MG Chewable Tablet PO (01:09)
[2023-04-30] MEDS: Naproxen 500 MG Tablet PO (05:05)
[2023-04-30] MEDS: Enoxaparin 40 MG/0.4 ML Syringe SC (07:00)
[2023-04-30 08:30] VITALS: BP 128/77; PULSE 72; RESP 14; TEMP 36.7; O2SAT 98
--- NOTE | 2023-04-30 08:51 | PCM.PN.OB ---
Subjective Subjective Patient doing well without complaints. Tolerating PO. Ambulating and voiding without difficulty. feeding well. Denies chest pain, shortness of breath, calf pain/swelling, fevers, chills, lightheadedness. Objective Data Objective Data Vital Signs: Vital Signs Temp Pulse Resp BP Pulse Ox O2 Del Method 98.1 F 72 14 128/77 H 98 Room Air 04/30/23 08:30 04/30/23 08:30 04/30/23 08:30 04/30/23 08:30 04/30/23 08:30 04/30/23 08:30 Oxygen Delivery Method Room Air Weight: 196 lb 13.965 oz Body Mass Index (BMI) 34.9 Intake & Output: Intake and Output for Last 24 Hours 04/28/23 04/29/23 04/30/23 23:59 23:59 23:59 Intake Total 2615 / 2615 796.67 / 796.67 Output Total 1700 / 1700 1250 / 1250 Balance 915 / 915 -453.33 / -453.33 Lab / Micro Data 04/29/23 06:10 04/28/23 02:40 ROS Constitutional Constitutional: Reports systems reviewed and no addt'l complaints, except as documented Cardiovascular Cardiovascular: Reports systems reviewed and no addt'l complaints, except as documented Respiratory/Chest Respiratory/Chest: Reports systems reviewed and no addt'l complaints, except as documented Gastrointestinal Gastrointestinal: Reports systems reviewed and no addt'l complaints, except as documented Physical Exam Const alert, oriented x3 and no apparent distress HEENT Head and Scalp: atraumatic Resp normal respiratory effort GI soft to palpation and non-tender Inspection: incision intact, healing well and drainage (none) Bimanual Exam - Vag & Uterus: uterus non-tender Uterus Palpation: uterus fundus firm (below Umbilicus) Assessment & Plan (1) delivery delivered: COMMENT: LTCS boy Jason NRFHTS covid 38 7 cm narrow pelvis from above (2) Gestational hypertension: (3) COVID: (4) Marijuana smoker: COMMENT: occasional for anxiety, counseling provided. stopped around 35 weeks. (5) Asthma: COMMENT: intermittent use of inhaler plan 36 week growth scan (6) Depression: COMMENT: buspar restarted for anxiety, was on lexapro in the past also, saw counseling center. feeling improved symptoms with counseling. PLAN: Plan s/p LTCS PPD # 2 1. routine post care 2. breast feeding- support given 3. rh positive 4. rubella immune
[2023-04-30] MEDS: Senna/Docusate Sodium 1 Tablet PO (11:51)
[2023-04-30] MEDS: busPIRone 5 MG Tablet 10 MG PO (11:52)
[2023-04-30 12:00] VITALS: BP 120/67; PULSE 84; RESP 16; TEMP 36.8; O2SAT 99
--- NOTE | 2023-05-20 06:53 | CASEMGMT ---
Social Work SW received a letter from [facility] stating that the referral was not accepted for assessment/investigation. SLY Veloz
== END 2023-04-30 14:40 | disposition home or self-care (01) | DRG 786 ==
LOC: WPOUT 03:04 → WP 03:04
PROVIDERS: Admitting Provider Obstetrics & Gynecology; Referring Provider Obstetrics & Gynecology; Visit Provider Obstetrics & Gynecology
DX: O76 Abnormality in fetal heart rate and rhythm complicating labor and delivery (principal); U07.1 COVID-19; O99.324 Drug use complicating childbirth; O98.52 Other viral diseases complicating childbirth; J45.909 Unspecified asthma, uncomplicated; F32.A Depression, unspecified; F12.90 Cannabis use, unspecified, uncomplicated; F41.9 Anxiety disorder, unspecified; Z37.0 Single live birth; Z57.2 Occupational exposure to dust; O13.4 Gestational [pregnancy-induced] hypertension without significant proteinuria, complicating childbirth; O99.52 Diseases of the respiratory system complicating childbirth; O99.344 Other mental disorders complicating childbirth; Z87.891 Personal history of nicotine dependence; Z3A.37 37 weeks gestation of pregnancy
CPT/HCPCS: 59025; 59050; 80307; 82565; 82570; 84112; 84156; 84450; 84460; 84550; 85027; 86780; 86850; 86900; 86901; 88307; 99221; J7030; J7120; A4216; G0378; J2405

== ENCOUNTER → 2023-06-09 | Outpatient (CLI) | payer BC, SELFPAY ==
[2023-06-15 14:09] LABS: HPV APTIMA, High Risk Positive (Negative)
== END | disposition home or self-care (01) ==
PROVIDERS: Referring Provider Obstetrics & Gynecology; Visit Provider Obstetrics & Gynecology
DX: Z12.4 Encounter for screening for malignant neoplasm of cervix (principal)
CPT/HCPCS: 87624; 88175; G0145

== ENCOUNTER → 2023-12-21 | Outpatient (CLI) | payer MEDICAID, SELFPAY ==
[2023-12-21 16:38] LABS: hCG Titer Quant., Serum 8051 mIU/mL (1-3)
[2023-12-21 17:35] LABS: Amphetamine Urine VISTA NEGATIVE (<1000 ng/mL); Barbiturate Urine VISTA NEGATIVE (< 200 ng/mL); Benzodiazepine Urine VISTA NEGATIVE (< 200 ng/mL); Cocaine Urine VISTA NEGATIVE (< 300 ng/mL); Ecstacy Urine VISTA NEGATIVE (< 500 ng/mL); Methadone Urine VISTA NEGATIVE (< 300 ng/mL); PCP Urine VISTA NEGATIVE (< 25 ng/mL); THC Urine VISTA POSITIVE (< 50 ng/mL); Vista UDS pH Range 5
[2023-12-26 04:07] LABS: Chlamydia By Nucleic Acid AMP Negative (Negative); Gonococcus By Nucleic Acid AMP Negative (Negative)
== END | disposition home or self-care (01) ==
LOC: WOBLAB 15:28
PROVIDERS: Referring Provider Advanced Practice Midwife; Visit Provider Advanced Practice Midwife
DX: O99.210 Obesity complicating pregnancy, unspecified trimester (principal); L02.91 Cutaneous abscess, unspecified; Z3A.00 Weeks of gestation of pregnancy not specified; O99.320 Drug use complicating pregnancy, unspecified trimester; F12.99 Cannabis use, unspecified with unspecified cannabis-induced disorder; O99.719 Diseases of the skin and subcutaneous tissue complicating pregnancy, unspecified trimester; O09.90 Supervision of high risk pregnancy, unspecified, unspecified trimester
CPT/HCPCS: 36415; 80307; 84702; 87070; 87077; 87086; 87205; 87491; 87591

== ENCOUNTER → 2024-02-23 | Outpatient (CLI) | payer MEDICAID, SELFPAY ==
[2024-02-23 12:21] LABS: Absolute Lymphocyte Count 1.73 X10^3/uL (0.83-4.51); Absolute Neutrophil Count 4.9 X10^3/uL (2.0-7.7); Basophil# 0.05 X10^3/uL; Basophil% 0.7 % (0-1); Eosinophil# 0.21 X10^3/uL; Eosinophils% 2.8 % (0-5); Hematocrit 36.1 % (37-47); Hemoglobin 12.9 g/dL (12.0-15.0); Lymphocyte # 1.73 X10^3/ul (0.83-4.51); Lymphocyte % 23.1 % (19-41); Mean Corp Hgb Conc 35.7 g/dL (32-36); Mean Corpuscular Hgb 31.6 pg (27.0-32.0); Mean Corpuscular Volume 88.5 fL (81-99); Mean Platelet Vol. 10.8 fl (6.2-12.0); Monocyte# 0.56 X10^3/uL; Monocyte% 7.5 % (0-10); NRBC Flagged by Analyzer 0 % (0-5); Neutrophil # 4.93 X10^3/uL (2.7-7.7); Neutrophil % 65.6 % (47-70); Platelet Count 250 K/mm3 (150-450); RBC Distribution Width CV 12.7 % (11.6-14.6); Red Blood Count 4.08 M/mm3 (4.2-5.4); White Blood Count 7.5 K/mm3 (4.4-11.0)
[2024-02-23 13:32] LABS: Hemoglobin A1c 4.9 % (3.8-5.6)
[2024-02-26 16:11] LABS: HIV - WCH Non-Reactive (Nonreactive); Hepatitis B Surface Antigen Non-Reactive (Nonreactive); Hepatitis C Antibody Non-Reactive (Nonreactive); Rubella IgG Reactive (Nonreactive); Syphilis Antibodies Non-reactive
== END | disposition home or self-care (01) ==
LOC: BWCLAB 10:32
PROVIDERS: Advanced Practice Midwife; Referring Provider Obstetrics & Gynecology; Visit Provider Obstetrics & Gynecology
DX: O09.90 Supervision of high risk pregnancy, unspecified, unspecified trimester (principal); Z3A.00 Weeks of gestation of pregnancy not specified
CPT/HCPCS: 36415; 83036; 85025; 86703; 86762; 86780; 86803; 86850; 86900; 86901; 87340

== ENCOUNTER 2024-05-02 10:00 | Outpatient (CLI) | payer MEDICAID, SELFPAY ==
[2024-05-02 10:20] VITALS: BP 115/67; PULSE 70
[2024-05-02 10:25] VITALS: BP 115/67; PULSE 70; RESP 18; TEMP 36.9; O2SAT 99
[2024-05-02 10:42] VITALS: BMI 29.7
--- NOTE | 2024-05-02 11:05 | OB.TRI.PN_ITS ---
Progress Notes Date of Service: 05/02/24 Progress Note: Patient presents for triage evaluation secondary to fall FHT: 140 Moderate variability reactive isolated variable, no significant decelerations category I tracing [place]: no regular Contractions Assessment and plan: abdominal trauma, monitored and reassuring nl cbc and fibrinogen Reactive NST, reassuring maternal and status patient discharged to home to follow-up as scheduled. See problem list details for additional plan information. Charges/Coding Procedures Urinary/Genital 52xxx-59xxx: [id number] non-stress test Interp
[2024-05-02 11:29] LABS: Absolute Lymphocyte Count 1.92 X10^3/uL (0.83-4.51); Absolute Neutrophil Count 7.6 X10^3/uL (2.0-7.7); Basophil# 0.05 X10^3/uL; Basophil% 0.5 % (0-1); Eosinophil# 0.07 X10^3/uL; Eosinophils% 0.7 % (0-5); Hematocrit 33.7 % (37-47); Hemoglobin 11.6 g/dL (12.0-15.0); Lymphocyte # 1.92 X10^3/ul (0.83-4.51); Lymphocyte % 18.6 % (19-41); Mean Corp Hgb Conc 34.4 g/dL (32-36); Mean Corpuscular Hgb 32.1 pg (27.0-32.0); Mean Corpuscular Volume 93.4 fL (81-99); Mean Platelet Vol. 10.1 fl (6.2-12.0); Monocyte# 0.62 X10^3/uL; NRBC Flagged by Analyzer 0 % (0-5); Neutrophil # 7.58 X10^3/uL (2.7-7.7); Neutrophil % 73.5 % (47-70); Platelet Count 237 K/mm3 (150-450); RBC Distribution Width CV 12.9 % (11.6-14.6); RBC Distribution Width SD 43.9 fl (35.1-43.9); Red Blood Count 3.61 M/mm3 (4.2-5.4); White Blood Count 10.3 K/mm3 (4.4-11.0)
[2024-05-02 12:28] LABS: Fibrinogen 366 mg/dl (203-444)
== END 2024-05-02 12:37 | disposition home or self-care (01) ==
LOC: WPOUT 10:07 → WP 10:09
PROVIDERS: Referring Provider Obstetrics & Gynecology; Visit Provider Obstetrics & Gynecology
DX: O9A.219 Injury, poisoning and certain other consequences of external causes complicating pregnancy, unspecified trimester (principal); Z3A.00 Weeks of gestation of pregnancy not specified; W19.XXXA Unspecified fall, initial encounter; T79.8XXA Other early complications of trauma, initial encounter
CPT/HCPCS: 36415; 59025; 59050; 85025; 85384; 99221; G0378

== ENCOUNTER → 2024-05-27 | Outpatient (CLI) | payer MEDICAID, SELFPAY ==
[2024-05-27 17:04] LABS: Absolute Lymphocyte Count 1.68 X10^3/uL (0.83-4.51); Absolute Neutrophil Count 8.4 X10^3/uL (2.0-7.7); Basophil# 0.04 X10^3/uL; Basophil% 0.4 % (0-1); Eosinophils% 0.9 % (0-5); Hematocrit 34.6 % (37-47); Lymphocyte # 1.68 X10^3/ul (0.83-4.51); Lymphocyte % 15.4 % (19-41); Mean Corp Hgb Conc 34.7 g/dL (32-36); Mean Corpuscular Hgb 32.7 pg (27.0-32.0); Mean Corpuscular Volume 94.3 fL (81-99); Mean Platelet Vol. 10.4 fl (6.2-12.0); Monocyte# 0.67 X10^3/uL; Monocyte% 6.1 % (0-10); NRBC Flagged by Analyzer 0 % (0-5); Neutrophil # 8.38 X10^3/uL (2.7-7.7); Neutrophil % 76.6 % (47-70); Platelet Count 274 K/mm3 (150-450); RBC Distribution Width SD 45.1 fl (35.1-43.9); Red Blood Count 3.67 M/mm3 (4.2-5.4); White Blood Count 10.9 K/mm3 (4.4-11.0)
[2024-05-27 17:24] LABS: Glucose Challenge Gest 1H 50g 96 mg/dL (70-140)
[2024-05-27 17:33] LABS: Syphilis Antibodies Nonreactive (Nonreactive)
[2024-05-27 20:00] LABS: HIV Nonreactive (Nonreactive)
== END | disposition home or self-care (01) ==
PROVIDERS: Referring Provider Advanced Practice Midwife; Visit Provider Advanced Practice Midwife
DX: Z13.1 Encounter for screening for diabetes mellitus (principal); O09.92 Supervision of high risk pregnancy, unspecified, second trimester; Z3A.00 Weeks of gestation of pregnancy not specified
CPT/HCPCS: 36415; 82950; 85025; 86703; 86780

== ENCOUNTER 2024-08-11 23:33 | Inpatient (IN) | payer MEDICAID, SELFPAY ==
[2024-08-11 20:18] VITALS: BMI 33.5
[2024-08-11 20:38] VITALS: BP 134/82; PULSE 64; RESP 16; TEMP 36.6; O2SAT 100
[2024-08-11] MEDS: Acetaminophen 500 MG Tablet 1000 MG PO (21:24)
[2024-08-11] MEDS: Cefazolin 2 GM in 0.9% Normal Saline (100mL Bag) 100 ML IV (23:45)
[2024-08-11] MEDS: Azithromycin 500 MG in 0.9% Normal Saline (250mL Bag) 250 ML 255 MG IV (23:47)
[2024-08-12] VITALS (18 sets, daily range): BP systolic 109–138; BP diastolic 62–88; PULSE 61–78; RESP 15–20; TEMP 36.4–37.2; O2SAT 96–100
--- NOTE | 2024-08-12 00:01 | PLAC_PTH ---
PATIENT: DAVID POST LOC: WP U#:[id number] AGE/SX: 33/F ROOM: WP006 RE08/11/[address]: Dr. Meena Luciano MD : 1990 BED: 1 DIS: 08/13/2024 SPEC #: [id number] RECD: 08/12/24 10:24 STATUS: KEEGAN PRINCESS #: [id number] ALEXI: 08/12/24 00:[address]: Meena Luciano DEPT: SURGICAL PATHOLOGY RECD BY: Osiel Gold ENTERED: 08/12/24 11:01 SP TYPE: PLACENTA OTHR DR: Mahsa Primary Care Phys Tissues: A - Placenta, NOS Procedures: Surgery Specimen Level V HEADER OPERATION: Repeat section PRE-OP DIAGNOSIS: Uterine rupture TISSUE SUBMITTED: A- Placenta MICROSCOPIC DIAGNOSIS A. Placenta, repeat section: * Eccentrically inserted and trivascular umbilical cord with acute funisitis * Marginally inserted membranes with acute chorioamnionitis * Mature (third trimester) placenta with acute chorioamnionitis and a 11.5 x 6.5 cm area of subchorionic hemorrage MICROSCOPIC DESCRIPTION Slides are reviewed. GROSS DESCRIPTION A. Received in formalin in a container labeled with the patient's name, date of , and with the accompanying paperwork indicating, placenta is a 16.0 x 14.0 x 3.0 cm estes discoid placenta with a trimmed weight of 298.3 g. The eccentrically located white-anderson umbilical cord exhibits 3 vessels and is 33 cm in length by 1.3 cm in diameter. There are approximately 7 coils per 10 cm. The membranes are anderson-pink, partially stripped, with a 100% marginal attachment site. The surface is pink-reyna with prominent vasculature and an 11.5 x 6.5 cm area of subchorionic hemorrhage (comprising approximately 25% of the surface). The maternal surface displays previously disrupted red-reyna cotyledons that appear predominantly complete. There is an abundance of easily removed blood clot material. Serial sections reveal that the subchorionic hemorrhage does not appear to extend into the underlying parenchyma. The cut surfaces are red, spongy, and congested. A 0.4 x 0.4 x 0.3 cm white-anderson and rubbery focus is identified at the maternal surface, comprising less than 2% of the overall surfaces. Alarm Operator sections:A1. Umbilical cord and membrane rollA2. Full-thickness section with subchorionic hemorrhageA3. Full-thickness section with rubbery focus at maternal surfaceA4. Full-thickness section [facility] 08-12-2024 CPT:27592
[2024-08-12 00:30] LABS: Absolute Neutrophil Count 19.3 X10^3/uL (2.0-7.7); Basophil# 0.03 X10^3/uL; Basophil% 0.1 % (0-1); Eosinophil# 0.02 X10^3/uL; Eosinophils% 0.1 % (0-5); Hemoglobin 13.8 g/dL (12.0-15.0); Lymphocyte % 5.1 % (19-41); Mean Corp Hgb Conc 36.3 g/dL (32-36); Mean Corpuscular Hgb 32.7 pg (27.0-32.0); Mean Platelet Vol. 11.2 fl (6.2-12.0); Monocyte# 1.06 X10^3/uL; Monocyte% 4.9 % (0-10); NRBC Flagged by Analyzer 0 % (0-5); Neutrophil # 19.25 X10^3/uL (2.7-7.7); Neutrophil % 89.2 % (47-70); Platelet Count 229 K/mm3 (150-450); RBC Distribution Width CV 12.7 % (11.6-14.6); RBC Distribution Width SD 41.6 fl (35.1-43.9); Red Blood Count 4.22 M/mm3 (4.2-5.4); White Blood Count 21.6 K/mm3 (4.4-11.0)
[2024-08-12 00:37] LABS: Fibrinogen 448 mg/dl (203-444)
[2024-08-12 00:38] LABS: Partial Thromboplast Time 29.6 Seconds (24.1-36.2)
[2024-08-12 00:41] LABS: International Normalized Ratio 0.9; Prothrombin Time (Protime)PT. 11.8 SECONDS (11.7-14.9)
[2024-08-12 00:53] LABS: ALB/GLOB Ratio 0.7 RATIO (0.9-2.4); AST(SGOT) 26 U/L (<=31); Alanine Aminotransfer ALT/SGPT 20 U/L (<=34); Albumin, Serum 3.5 g/dL (3.5-5.0); Alkaline Phosphatase 299 U/L (35-104); Anion Gap 16 (5-15); BUN 13 mg/dL (4-19); BUN/Creat Ratio 20.6 RATIO (10-20); Calcium,Total 8.9 mg/dL (7.6-11.0); Carbon Dioxide 13.9 mmol/L (21.0-32.0); Chloride 104 mmol/L (98-108); Creatinine, Serum 0.63 mg/dL (0.70-1.20); EST Glomerular Filtration Rate 120 (>60); Globulin 4.7 g/dL (2.2-4.2); Glucose 115 mg/dL (70-99); Potassium 3.7 mmol/L (3.3-5.1); Protein, Total 8.2 g/dL (5.9-8.4); Sodium Level 134 mmol/L (133-145); Syphilis Antibodies Nonreactive (Nonreactive); Total Bilirubin 0.39 mg/dL (0.00-1.30)
--- NOTE | 2024-08-12 01:01 | HP.PCM.OB_ITS ---
HPI - General General Date of Admission: 08/11/24 HPI Narrative DAVID POST, is a 33 F who presents for early rule out labor for a TOLAC, was initially 3-4 cm, and during her ruling out of labor she had a bradycardic episode and she was rechecked and found to be 5 cm with a loss of station, so the decision was made to proceed with a repeat for a suspected uterine rupture, patient declined a trial of labor. Maternal Data Information MANUEL Calculator Estimated Delivery Date Method Current WG Current Estimate 08/21/24 Ultrasound #1 38w 5d Other Estimates 07/04/24 LMP (Uncertain) 45w 4d 08/18/24 Ultrasound #2 39w 1d PFSH PFSH Medical History Uterine anomaly Trauma Anxiety History of asthma History of back pain history of knee pain History of anemia Home Medications ?Medication ?Instructions ?Recorded ?Last Taken ?Type multivitamin no.47-iron fum 27 1 cap PO DAILY pregnanc y 09/02/22 04/27/23 History mg-folate no.1 1 mg-dha 300 mg capsule (PNV-DHA) Allergy/AdvReac Type Severity Reaction Status Date / Time bee venom protein (honey Allergy Hives Verified 08/11/24 20:29 bee) (bee sting) Social History adopted: Yes household members: significant other, children and other details: JOSELYN Luciano (has two kids Ryan Khan lives with his mom) [facility] housing: house number of children: 2 current occupational status: other current occupation: [employer] current occupational exposures/hazards: No pets and animals: Yes (not managing litter box) pets and animals: cat(s) leisure activities: exercise history of recent travel: No sexually active: Yes Smoking Status: Current every day smoker tobacco type: cigarettes Tobacco: How many years used: 8 quit status: quit date established alcohol intake: never substance use type: marijuana and other details: last Oct 2022, counseling provided. Pt agreeable to drug testing well-balanced diet: daily or most days eating out: rarely or never during the past year weight has: decreased > 10 lbs what type of physical activity do you participate in: walking frequency: 1-2 times per week yesenia/hinduism: None seatbelt use: always do you feel safe at home: Yes additional social history: [facility] History 2 Elective abortions Hx Para 1 Spontaneous abortions Hx # Term Pregnancies 1 Ectopic pregnancies Hx # Pregnancies Multiple births # of living children 1 Past Pregnancies Del. Date Name GA/Weeks Outcome Route Bth Weight Gen Labor Lgth Anesthesia Del Locatn Provider FOB 04/29/23 Jason 39 live - full term 6lbs 12oz Male [facility] Mustapha Luciano Delivery Date: 04/29/23 Last Updated by: Dee [facility]us [facility] Visit Details Expected Delivery Route/Plan R C/S with JV Plans Covid status: [] Flu vaccine: [] Tdap vaccine: discussed Rhogam: [] LARC form signed: [] Problem list reviewed and updated with the most current plan of care details and appropriate orders placed. Relevant counseling for the gestational age provided. Continue routine care and follow up unless otherwise noted in visit notes/problem list details OB Flowsheet Initial Weight: 181 lb Date -?-?-?-?-?-?-?-?-?-?-?-?- EGA Weight BP Urine Prot -?-?-?-?-?-?-?-?-?-?-?-?- Glucose FHR FuHt Pres Dilation -?-?-?-?-?-?-?-?-?-?-?-?- Effaced St Visit Note 12/21/23 -?-?-?-?-?-?-?-?-?-?-?-?- 5w 1d 181 lb 8 oz (+8 oz) 110/70 -?-?-?-?-?-?-?-?-?-?-?-?- -?-?-?-?-?-?-?-?-?-?-?-?- KW- CRL not cons with dates. SM assisted with scan. measuring 5.1 weeks. plan for hcgs and repeat US next week. 02/23/24 -?-?-?-?-?-?-?-?-?-?-?-?- 14w 2d 173 lb (-8 lb) 119/72 Negative -?-?-?-?-?-?-?-?-?-?-?-?- Negative 147 -?-?-?-?-?-?-?-?-?-?-?-?- MAGDI- pt was absen t for a weeks due to insurance loss. She states that they have insurance now . new ob lab and NIPT ordered. unsure about rpt section vs trial of labor. 03/22/24 -?-?-?-?-?-?-?-?-?-?-?-?- 18w 2d 175 lb (-6 lb) 108/67 Negative -?-?-?-?-?-?-?-?-?-?-?-?- Negative 145 -?-?-?-?-?-?-?-?-?-?-?-?- SM- no vb lof go od fm nro egular ctx SM- no vb lof good fm nro eg ular ctx discussed plan RLTCS at 40-41 weeks plan TOLAC prior 04/15/24 -?-?-?-?-?-?-?-?-?-?-?-?- 21w 5d 176 lb 6 oz (-4 lb 10 oz) 98/64 Negative -?-?-?-?-?-?-?-?-?-?-?-?- Negative 155 -?-?-?-?-?-?-?-?-?-?-?-?- MH-No VB, LOF. G ood FM. Denies concerns 05/13/24 -?-?-?-?-?-?-?-?-?-?-?-?- 25w 5d 181 lb 2 oz (+2 oz) 110/68 Negative -?-?-?-?-?-?-?-?-?-?-?-?- Negative 140 26 -?-?-?-?-?-?-?-?-?-?-?-?- KW- no vb/lof/ct x. good fm. 28 week labs discussed. chiropractor for back pain. 05/27/24 -?-?-?-?-?-?-?-?-?-?-?-?- 27w 5d 181 lb 4 oz (+4 oz) 108/66 Negative -?-?-?-?-?-?-?-?-?-?-?-?- Negative 138 28 -?-?-?-?-?-?-?-?-?-?-?-?- KW- no vb/kaminii ng. good fm. labs today. LARC today. 06/14/24 -?-?-?-?-?-?-?-?-?-?-?-?- 30w 2d 182 lb (+16 oz) 129/78 Negative -?-?-?-?-?-?-?-?-?-?-?-?- Negative 140 30 -?-?-?-?-?-?-?-?-?-?-?-?- SM- no vb lof go od fm no reulgar ctx 06/24/24 -?-?-?-?-?-?-?-?-?-?-?-?- 31w 5d 183 lb 6 oz (+2 lb 6 oz) 120/73 Negative -?-?-?-?-?-?-?-?-?-?-?-?- Negative 135 30 -?-?-?-?-?-?-?-?-?-?-?-?- KW- no vb/lof/ct x. good fm no concerns today 07/12/24 -?-?-?-?-?-?-?-?-?-?-?-?- 34w 2d 188 lb 2 oz (+7 lb 2 oz) 116/73 Negative -?-?-?-?-?-?-?-?-?-?-?-?- Negative 130 34 Cephalic -?-?-?-?-?-?-?-?-?-?-?-?- KW- no vb/lof/ct x. good fm. stretching for low back pain. 07/22/24 -?-?-?-?-?-?-?-?-?-?-?-?- 35w 5d 184 lb 4 oz (+3 lb 4 oz) 118/73 Negative -?-?-?-?-?-?-?-?-?-?-?-?- Negative 135 35 Cephalic -?-?-?-?-?-?-?-?-?-?-?-?- JV- cephalic on scan today. (unofficial in office scan) discussed today. has backup plan for rpt section on august 21. no lof, vaginal bleeding, or dec fm. 08/02/24 -?-?-?-?-?-?-?-?-?-?-?-?- 37w 2d 192 lb 4 oz (+11 lb 4 oz) 129/81 Negative -?-?-?-?-?-?-?-?-?-?-?-?- Negative 125 36 0 -?-?-?-?-?-?-?-?-?-?-?-?- -3 KW- no v b/lof. good fm. having some contractions at night-feels like baby is dropping. 08/08/24 -?-?-?-?-?-?-?-?-?-?-?-?- 38w 1d 194 lb 4 oz (+13 lb 4 oz) 131/78 Negative -?-?-?-?-?-?-?-?-?-?-?-?- Negative 130 38 Cephalic 2 .5 -?-?-?-?-?-?-?-?-?-?-?-?- 60 -2 KW- no vb/ lof. irregular ctx. good fm. labor precautions. would like membrane sweep next week. NST FHR Rate Baby A Baseline: 120 Variability:: Moderate Accelerations:: 15 x 15 Decelerations:: Prolonged (Bradycardia into the 70s) NST Reactive:: Yes FHR Category:: Category I and Category II Uterine Activity:: q3-5 ROS Constitutional Constitutional: Reports systems reviewed and no addt'l complaints, except as documented ENT HEENT: Reports systems reviewed and no addt'l complaints, except as documented Cardiovascular Cardiovascular: Reports systems reviewed and no addt'l complaints, except as documented Respiratory/Chest Respiratory/Chest: Reports systems reviewed and no addt'l complaints, except as documented Gastrointestinal Gastrointestinal: Reports systems reviewed and no addt'l complaints, except as documented and nausea; Denies abdominal pain Genitourinary Genitourinary: Reports systems reviewed and no addt'l complaints, except as documented, contractions Details: present and frequency (regular ) and movement Details: present Musculoskeletal Musculoskeletal: Reports systems reviewed and no addt'l complaints, except as d ocumented Integumentary Integumentary: Reports as per HPI Neurologic Neurologic: Reports systems reviewed and no addt'l complaints, except as documented Endocrine Endocrinology: Reports systems reviewed and no addt'l complaints, except as documented Vital Signs Vital Signs Vital Signs: 08/11/24 20:38 08/11/24 20:38 08/11/24 20:38 Temperature Temperature Source Pulse Rate 64 Respiratory Rate Blood Pressure 134/82 H BP Systolic 134 BP Diastolic 82 Pulse Ox 100 08/11/24 20:38 08/11/24 20:38 08/11/24 20:38 Temperature 97.9 F Temperature Source Temporal Pulse Rate Respiratory Rate 16 Blood Pressure BP Systolic BP Diastolic Pulse Ox Weight Weight: 189 lb Body Mass Index (BMI) 33.5 Physical Exam Const alert, oriented x3 and healthy appearing Constitutional Narrative: uncomfortable with contractions HEENT normocephalic and moist oral mucous membranes Head and Scalp: atraumatic Neck full ROM, no lymphadenopathy, supple and thyroid normal General: trachea midline Thyroid: thyroid normal Lymph Lymphatic: no lymphadenopathy noted Chest inspection of chest normal Resp normal respiratory effort Cardio regular rate GI soft to palpation and non-tender GI Narrative: gravid Inspection: gravid external exam normal Bimanual Exam - Vag & Uterus: uterus non-tender Manual OB Exam: estimated gestational size appropriate, presentation cephalic, dilated, effaced and station Extremity normal to inspection General Extremity: Negative for edema Skin no rashes or lesions noted Neuro deep tendon reflexes 2+ bilaterally Motor Exam: strength 5/5 throughout and clonus absent Psych mental status grossly normal Labs Labs Labs: Blood Type O POSITIVE Antibody Screen NEGATIVE Hct 38.0 % (37-47) Hgb 13.8 g/dL (12.0-15.0) Obstetrics Ultrasound Syphilis Total Ab Nonreactive (Nonreactive) Rubella IgG Antibody Reactive (Nonreactive) Hep Bs Antigen Non-Reactive (Nonreactive) Hepatitis C Antibody Non-Reactive (Nonreactive) Chlamydia DNA (ELIZABETH) Negative (Negative) N.gonorrhoeae DNA (ELIZABETH) Negative (Negative) HIV 1&2 Antibody Nonreactive (Nonreactive) Glucose 1 Hr 50 gm 96 mg/dL (70-140) Rhogam given: No Assessment & Plan (1) Positive GBS test: COMMENT: treat if in labor. (2) Obesity affecting : QUALIFIERS: Trimester: second trimester Obesity type affecting : unspecified obesity Qualified Code(s): O99.212 - Obesity complicating , second trimester COMMENT: A1C (3) Supervision of high-risk : QUALIFIERS: Trimester: second trimester Qualified Code(s): O09.92 - Supervision of high risk , unspecified, second trimester COMMENT: PRR, , MANUEL 07/04/24, girl Janusz PC JOSELYN Gomez (4) Borderline personality disorder: COMMENT: sees counselor (5) : QUALIFIERS: Weeks of gestation: 38 weeks Qualified Code(s): Z3A.38 - 38 weeks gestation of COMMENT: NIPT with gender, declines carrier. nl anatomy (6) Uterine anomaly: COMMENT: tilted (7) ASCUS with positive high 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al: COMMENT: [place] done repeat pap 08/04 (8) Marijuana smoker: COMMENT: occasional for anxiety, counseling provided. last Oct 2023 (9) Depression: QUALIFIERS: Depression Type: unspecified Qualified Code(s): F32.A - Depression, unspecified COMMENT: erna okeefe counselor (10) Uterine rupture: (11) delivery delivered: COMMENT: RLTCS uterine rupture girl janusz 38 SM PLAN: Plan proceeded with stat RLTCS
--- NOTE | 2024-08-12 01:09 | EX.PCM.OBRPT ---
Assessment & Plan (1) delivery delivered: COMMENT: RLTCS uterine rupture girl janusz 38 SM (2) Uterine rupture: (3) Positive GBS test: COMMENT: treat if in labor. (4) Obesity affecting : QUALIFIERS: Trimester: second trimester Obesity type affecting : unspecified obesity Qualified Code(s): O99.212 - Obesity complicating , second trimester COMMENT: A1C (5) Supervision of high-risk : QUALIFIERS: Trimester: second trimester Qualified Code(s): O09.92 - Supervision of high risk , unspecified, second trimester COMMENT: PRR, , MANUEL 07/04/24, girl [place] [facility] Jason, BF Mustapha (6) : QUALIFIERS: Weeks of gestation: 38 weeks Qualified Code(s): Z3A.38 - 38 weeks gestation of COMMENT: NIPT with gender, declines carrier. nl anatomy (7) Borderline personality disorder: COMMENT: sees counselor (8) Uterine anomaly: COMMENT: tilted (9) ASCUS with positive high 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al: COMMENT: [place] done repeat pap 08/04 (10) Marijuana smoker: COMMENT: occasional for anxiety, counseling provided. last Oct 2023 (11) Depression: QUALIFIERS: Depression Type: unspecified Qualified Code(s): F32.A - Depression, unspecified COMMENT: erna okeefe counselor Maternal Data Information MANUEL Calculator Estimated Delivery Date Method Current WG Current Estimate 08/21/24 Ultrasound #1 38w 5d Other Estimates 07/04/24 LMP (Uncertain) 45w 4d 08/18/24 Ultrasound #2 39w 1d Operative Report (OB) Details Procedure Type: low transverse Date of Procedure: 08/12/24 Procedure Start Time: 00:00 Procedure Stop Time: 00:47 Pre-Operative Diagnosis: Other Other Pre-Operative diagnosis: see a/p comments Post-Operative Diagnosis: Same as Pre-operative diagnosis Classification: Stat Type of Anesthesia: General Antibiotic Given: Ancef 2 grams IV x1 Drain: De Leon to straight drain Estimated Blood Loss: 600 Fluids Replaced: crystalloid Findings Description of surgery: De Leon catheter was placed. The patient was placed in the dorsal supine position with leftward tilt. Patient was prepped and draped in the normal sterile fashion. General anesthesia was going to be administered however the IV access was lost and had to be reestablished. After patient was placed under general anesthesia after IV was secured, Pfannenstiel skin incision was made with the scalpel and carried through to the underlying layer of fascia with the scalpel. Fascia was nicked in the midline and the incision extended laterally. The rectus bellies were dissected off superiorly and inferiorly with out complication both sharply and bluntly. The peritoneum was entered digitally. The incision was stretched and the lower uterine segment was inspected and noted to be very thin, upon lightly touching it spontaneously burst open confirming uterine rupture the infant's head was delivered atraumatically followed by the anterior and posterior shoulders without complication the rest of the infant delivered. The cord was clamped and cut and the infant was handed off to awaiting nurse. The placenta was delivered spontaneously immediately following and was noted to be intact and have a three-vessel cord. The uterus was exteriorized cleared of all clots and debris, and the incision was closed in a single layer closure using #1 Monocryl. The ovaries and fallopian tubes were noted to be within normal limits. The uterus was returned to the maternal abdomen and gutters were cleared of all clots and debris. The peritoneum was closed with 3-0 Monocryl in a running fashion. Gvrdax-[id number] suture was used on the rectus muscle and 2 areas to obtain hemostasis and Hemoblast also used. Gloves were changed prior to fascial closure. Fascia was closed with 0 PDS in a running fashion. Subcutaneous tissue was copiously irrigated and the skin was closed with 3-0 Monocryl in a subcuticular fashion. Mepilex dressing was applied without complication. Patient was taken to recovery in stable condition. It was discussed with the patient that based on the clinical information obtained during this encounter, combined with her history, at this time I would recommend cesareans for future deliveries if further pregnancies are desired and delivery at 36 weeks. Surgical findings: nl uterus tubes, uterine rupture Amniotic Membrane Rupture Type: Artificial Amniotic Fluid Description: Clear Specimen collected: Yes Description of specimen(s) removed: Placenta Cord Vessel Description: 3 Vessels Delayed Cord Clamping: Yes Band Sawyer microbiology lab analyst: Yes Casting Associate: Krystin Longo Tasks completed by first officer and flight instructor: Opening & closing, Retracting and Other (Assisting with delivery of the ) Additional specimen preparation assistant?: Yes Additional Debit Agent #2: Aleida Payne Tasks completed by specimen preparation assistant #2: Closing and Retracting Additional specimen preparation assistant?: No Complications Complications: No Admit VTE Documentation VTE Present on Admission: No VTE Mechan Device Prophylaxis: SCD's Procedures Urinary/Genital [id number]: 01939 delivery+PP Care([facility])
[2024-08-12] MEDS: Oxytocin 15 Units/NS 250ml 15 UNITS/250 ML IV.SOLN 83 UNITS IV (01:17)
--- NOTE | 2024-08-12 01:18 | DCINST_ITS ---
Discharge Instructions Diet Discharge Diet: No restrictions DC O2, CPAP, BIPAP needs Home O2 Discharge instructions: No Dressing / Incision Discharge Activity: May Not Drive (for 2 weeks or while taking narcotic pain medications.), May Shower and May Take a Tub Bath (in 7 days) May shower in (days): 0 May resume sexual activity in: 4-6 weeks Weight Bearing Status: Full weight bearing Lifting Restrictions: 20 pounds Dressing / Incision Call your doctor if your incision/area has: Continuous Slow Oozing, Sudden Increased Bleeding, Increased Pain/ Swelling, Increased Redness and Foul Smelling Discharge Call your doctor if you observe: Fever of 101 or Higher and Using more than 1 pad per hour (for 2 hours) Suture Line Care: Avoid Pulling/Pushing and Avoid Pinching/Bending Cleanse incision/area with: Soap & Water and Keep Dressing Clean & Dry Follow Up Care Please Follow Up With: Meena Luciano MD When: Call [phone] to make an appointment for an incision check in 1-2 weeks. Test Results: Test results from this visit will be discussed in further detail at your follow- up appointment, if applicable. Discharge Plan Admission Admit Date/Time: 08/11/24 23:33 Attending Provider: Meena Luciano Primary Care Provider: Care PhysicianMahsa Primary Discharge Orders/Prescriptions Prescriptions: New oxycodone-acetaminophen [Percocet] 5-325 mg tablet 1 tab PO Q4H PRN (Reason: pain) 7 Days Qty: 20 0RF naproxen 500 mg tablet 500 mg PO BID PRN PRN (Reason: Pain) Qty: 30 1RF No Action PNV-DHA 27 mg iron-1 mg -300 mg capsule 1 cap PO DAILY Referrals / Follow Up: Care Physician,No Primary [Primary Care Provider] - Disposition Disposition (needs filled in before D/C Order can be placed): Home, Self Care
[2024-08-12] MEDS: Ketorolac 30 MG/ML Syringe IV ×4 (02:07→19:50)
[2024-08-12] MEDS: 0.9% Saline Lock 10 ML Syringe IV ×4 (02:08→19:50)
[2024-08-12] MEDS: HYDROmorphone 1 MG/ML Syringe IV (02:39)
[2024-08-12] MEDS: Acetaminophen 500 MG Tablet 1000 MG PO ×4 (03:46→21:59)
[2024-08-12] MEDS: Lactated Ringers 1,000 ML 100 ML IV ×2 (04:17→08:01)
[2024-08-12 06:24] LABS: Amphetamine Urine NEGATIVE (<1000 ng/mL); Barbiturate Urine NEGATIVE (< 200 ng/mL); Benzodiazepine Urine NEGATIVE (< 200 ng/mL); Buprenorphine Urine NEGATIVE (< 200 ng/mL); Cocaine Urine NEGATIVE (< 300 ng/mL); Fentanyl, Urine NEGATIVE; Methadone Urine NEGATIVE (< 300 ng/mL); Opiates Urine PRESUMPTIVE POSITIVE (< 300 ng/mL); Oxycodone, Urine NEGATIVE (< 100 ng/mL); PCP Urine NEGATIVE (< 25 ng/mL); THC Urine PRESUMPTIVE POSITIVE (< 50 ng/mL)
[2024-08-12 07:58] LABS: Hematocrit 31.8 % (37-47); Hemoglobin 11.2 g/dL (12.0-15.0); Mean Corp Hgb Conc 35.2 g/dL (32-36); Mean Corpuscular Hgb 32.4 pg (27.0-32.0); Mean Corpuscular Volume 91.9 fL (81-99); Mean Platelet Vol. 10.8 fl (6.2-12.0); Platelet Count 175 K/mm3 (150-450); RBC Distribution Width CV 12.8 % (11.6-14.6); RBC Distribution Width SD 41.8 fl (35.1-43.9); Red Blood Count 3.46 M/mm3 (4.2-5.4); White Blood Count 20.2 K/mm3 (4.4-11.0)
--- NOTE | 2024-08-12 09:19 | PN.OBGYN_ITS ---
Subjective Subjective Patient doing well without complaints. Tolerating PO. feeding well. Denies chest pain, shortness of breath, calf pain/swelling, fevers, chills, lightheadedness. Objective Data Objective Data Vital Signs: Vital Signs Temp Pulse Resp BP Pulse Ox O2 Del Method 99 F 75 16 110/67 97 Room Air 08/12/24 07:20 08/12/24 07:20 08/12/24 07:20 08/12/24 07:20 08/12/24 07:20 08/12/24 07:20 Oxygen Delivery Method Room Air Weight: 189 lb Body Mass Index (BMI) 33.5 Intake & Output: Intake and Output for Last 24 Hours 08/10/24 08/11/24 08/12/24 23:59 23:59 23:59 Intake Total 987.33 / 987.33 Output Total 1775 / 1775 Balance -787.67 / -787.67 Lab / Micro Data 08/12/24 07:45 08/11/24 23:15 Labs: Laboratory Results - last 24 hr 08/11/24 23:15: WBC 21.6 H, RBC 4.22, Hgb 13.8, Hct 38.0, MCV 90.0, MCH 32.7 H, MCHC 36.3 H, RDW Std Deviation 41.6, RDW Coeff of [place] 12.7, Plt Count 229, MPV 11.2, Immature Gran % (Auto) 0.600, Neut % (Auto) 89.2 H, Lymph % (Auto) 5.1 L, [place] % (Auto) 4.9, Eos % (Auto) 0.1, Baso % (Auto) 0.1, Absolute Neuts (auto) 19.3 H, Absolute Lymphs (auto) 1.10, Nucleated RBC % 0, PT 11.8, INR 0.9, APTT 29.6, Fibrinogen 448 H, Sodium 134, Potassium 3.7, Chloride 104, Carbon Dioxide 13.9 L, Anion Gap 16 H, BUN 13, Creatinine 0.63 L, Estim Creat Clear Calc 131.80, Est GFR (MDRD) Non-Af 120, BUN/Creatinine Ratio 20.6 H, Glucose 115 H, Calcium 8.9, Total Bilirubin 0.39, AST 26, ALT 20, Alkaline Phosphatase 299 H, Total Protein 8.2, Albumin 3.5, Globulin 4.7 H, Albumin/Globulin Ratio 0.7 L, Syphilis Total Ab Nonreactive, Blood Type O POSITIVE, Antibody Screen NEGATIVE 08/12/24 05:00: Urine Opiates Screen PRESUMPTIVE POSITIVE, U Buprenorphine Qual NEGATIVE, Ur Oxycodone Screen NEGATIVE, Urine Methadone Screen NEGATIVE, Urine Fentanyl Screen NEGATIVE, Ur Barbiturates Screen NEGATIVE, Ur Phencyclidine Scrn NEGATIVE, Ur Amphetamines Screen NEGATIVE, U Benzodiazepines Scrn NEGATIVE, Urine Cocaine Screen NEGATIVE, U Cannabinoids Screen PRESUMPTIVE POSITIVE 08/12/24 07:45: WBC 20.2 H, RBC 3.46 L, Hgb 11.2 L, Hct 31.8 L, MCV 91.9, MCH 32.4 H, MCHC 35.2, RDW Std Deviation 41.8, RDW Coeff of [place] 12.8, Plt Count 175, MPV 10.8 ROS Constitutional Constitutional: Reports systems reviewed and no addt'l complaints, except as documented Cardiovascular Cardiovascular: Reports systems reviewed and no addt'l complaints, except as documented Respiratory/Chest Respiratory/Chest: Reports systems reviewed and no addt'l complaints, except as documented Gastrointestinal Gastrointestinal: Reports systems reviewed and no addt'l complaints, except as documented Physical Exam Const alert, oriented x3 and no apparent distress HEENT Head and Scalp: atraumatic Resp normal respiratory effort GI soft to palpation and non-tender Inspection: incision intact, healing well and drainage (none) Bimanual Exam - Vag & Uterus: uterus non-tender Uterus Palpation: uterus fundus firm (below Umbilicus) Assessment & Plan (1) delivery delivered: COMMENT: RLTCS uterine rupture girl janusz 38 SM (2) Uterine rupture: PLAN: Plan s/p LTCS PPD # 0 1. routine post care 2. breast feeding- support given 3. rh positive 4. rubella immune
[2024-08-12] MEDS: Senna/Docusate Sodium 1 Tablet PO (09:27)
[2024-08-12 10:23] LABS: Pathology Specimen OB SEE PATHOLOGY REPORT
[2024-08-12] MEDS: oxyCODONE 5 MG Tablet PO (12:39)
[2024-08-12] MEDS: Enoxaparin 40 MG/0.4 ML Syringe SC (13:34)
[2024-08-13 02:00] VITALS: BP 113/65; PULSE 72; RESP 16; TEMP 36.7; O2SAT 97
[2024-08-13] MEDS: Naproxen 500 MG Tablet PO ×2 (02:21→10:04)
[2024-08-13] MEDS: Acetaminophen 500 MG Tablet 1000 MG PO ×2 (04:02→10:04)
[2024-08-13 08:39] VITALS: BP 115/77; PULSE 71; RESP 16; TEMP 36.5; O2SAT 98
[2024-08-13] MEDS: Senna/Docusate Sodium 1 Tablet PO (10:03)
[2024-08-13 11:30] VITALS: BP 118/71; PULSE 82; RESP 16; TEMP 36.5; O2SAT 97
--- NOTE | 2024-08-13 11:43 | PN.OBGYN_ITS ---
Subjective Subjective Patient doing well without complaints. Tolerating PO. feeding well. Denies chest pain, shortness of breath, calf pain/swelling, fevers, chills, lightheadedness. Objective Data Objective Data Vital Signs: Vital Signs Temp Pulse Resp BP Pulse Ox O2 Del Method 97.7 F L 71 16 115/77 98 Room Air 08/13/24 08:39 08/13/24 08:39 08/13/24 08:39 08/13/24 08:39 08/13/24 08:39 08/13/24 08:39 Oxygen Delivery Method Room Air Weight: 189 lb Body Mass Index (BMI) 33.5 Intake & Output: Intake and Output for Last 24 Hours 08/11/24 08/12/24 08/13/24 23:59 23:59 23:59 Intake Total 1837.33 / 1837.33 Output Total 2600 / 2600 Balance -762.67 / -762.67 Lab / Micro Data 08/12/24 07:45 08/11/24 23:15 Labs: Laboratory Results - last 24 hr 08/11/24 23:15: WBC 21.6 H, RBC 4.22, Hgb 13.8, Hct 38.0, MCV 90.0, MCH 32.7 H, MCHC 36.3 H, RDW Std Deviation 41.6, RDW Coeff of [place] 12.7, Plt Count 229, MPV 11.2, Immature Gran % (Auto) 0.600, Neut % (Auto) 89.2 H, Lymph % (Auto) 5.1 L, [place] % (Auto) 4.9, Eos % (Auto) 0.1, Baso % (Auto) 0.1, Absolute Neuts (auto) 19.3 H, Absolute Lymphs (auto) 1.10, Nucleated RBC % 0, PT 11.8, INR 0.9, APTT 29.6, Fibrinogen 448 H, Sodium 134, Potassium 3.7, Chloride 104, Carbon Dioxide 13.9 L, Anion Gap 16 H, BUN 13, Creatinine 0.63 L, Estim Creat Clear Calc 131.80, Est GFR (MDRD) Non-Af 120, BUN/Creatinine Ratio 20.6 H, Glucose 115 H, Calcium 8.9, Total Bilirubin 0.39, AST 26, ALT 20, Alkaline Phosphatase 299 H, Total Protein 8.2, Albumin 3.5, Globulin 4.7 H, Albumin/Globulin Ratio 0.7 L, Syphilis Total Ab Nonreactive, Blood Type O POSITIVE, Antibody Screen NEGATIVE 08/12/24 05:00: Urine Opiates Screen PRESUMPTIVE POSITIVE, U Buprenorphine Qual NEGATIVE, Ur Oxycodone Screen NEGATIVE, Urine Methadone Screen NEGATIVE, Urine Fentanyl Screen NEGATIVE, Ur Barbiturates Screen NEGATIVE, Ur Phencyclidine Scrn NEGATIVE, Ur Amphetamines Screen NEGATIVE, U Benzodiazepines Scrn NEGATIVE, Urine Cocaine Screen NEGATIVE, U Cannabinoids Screen PRESUMPTIVE POSITIVE 08/12/24 07:45: WBC 20.2 H, RBC 3.46 L, Hgb 11.2 L, Hct 31.8 L, MCV 91.9, MCH 32.4 H, MCHC 35.2, RDW Std Deviation 41.8, RDW Coeff of [place] 12.8, Plt Count 175, MPV 10.8 ROS Constitutional Constitutional: Reports systems reviewed and no addt'l complaints, except as documented Cardiovascular Cardiovascular: Reports systems reviewed and no addt'l complaints, except as documented Respiratory/Chest Respiratory/Chest: Reports systems reviewed and no addt'l complaints, except as documented Gastrointestinal Gastrointestinal: Reports systems reviewed and no addt'l complaints, except as documented Physical Exam Const alert, oriented x3 and no apparent distress HEENT Head and Scalp: atraumatic Resp normal respiratory effort GI soft to palpation and non-tender Inspection: incision intact, healing well and drainage (none) Bimanual Exam - Vag & Uterus: uterus non-tender Uterus Palpation: uterus fundus firm (below Umbilicus) Assessment & Plan (1) delivery delivered: COMMENT: RLTCS uterine rupture girl janusz 38 SM (2) Uterine rupture: PLAN: Plan s/p LTCS PPD # 1 1. routine post care 2. breast feeding- support given 3. rh positive 4. rubella immune
[2024-08-13] MEDS: Enoxaparin 40 MG/0.4 ML Syringe SC (14:13)
--- NOTE | 2024-08-15 22:34 | PCM.DC.SUM ---
Providers Date of Admission: 08/11/24 Primary Care Physician: Mahsa Primary Care Phys Reason For Visit: LABOR Diagnosis Discharge Diagnosis (1) delivery delivered: Status: Acute Code(s): O82 - Encounter for delivery without indication (2) Uterine rupture: Status: Acute Code(s): S37.69XA - Other injury of uterus, initial encounter Plan s/p LTCS PPD # 1 1. routine post care 2. breast feeding- support given 3. rh positive 4. rubella immune Medications at Discharge Home Medications multivitamin no.47-iron fum 27 mg-folate no.1 1 mg-dha 300 mg capsule (PNV-DHA) 1 cap PO DAILY 09/02/22 naproxen 500 mg tablet 500 mg PO BID PRN PRN Pain #30 tabs 08/12/24 oxycodone-acetaminophen 5 mg-325 mg tablet (Percocet) 1 tab PO Q4H PRN pain 7 days #20 tabs 08/12/24 Hospital Course Summary of Care Provided Hospital Course: patient presented for rule out labor and had a bradycardia therefore the deciison to not undergo a TOLAC was made and patient underwent a RLTCS Postoperatively patient had return of bowel and bladder function and was ambulating well, tolerating adequate p.o., and was stable for discharge to home on postop day #2. Discharge medications naproxen and Percocet. Follow-up in office in 2 weeks for incision check in 6 weeks for visit. Routine post section diet and activity instructions. Weight / BMI Weight Weight: 189 lb Body Mass Index (BMI) 33.5 ABG / Lab / Microbiology Data 08/12/24 07:45 08/11/24 23:15 Laboratory: Laboratory Results - last 24 hr 08/13/24 14:15: Miscellaneous Test 2 COMMENT D/C Instructions Discharge Diet: No restrictions Discharge Activity: May Not Drive (for 2 weeks or while taking narcotic pain medications.), May Shower and May Take a Tub Bath (in 7 days) May shower in (days): 0 May resume sexual activity in: 4-6 weeks Weight Bearing Status: Full weight bearing Call your doctor if your incision/area has: Continuous Slow Oozing, Sudden Increased Bleeding, Increased Pain/ Swelling, Increased Redness and Foul Smelling Discharge Call your doctor if you observe: Fever of 101 or Higher and Using more than 1 pad per hour (for 2 hours) Suture Line Care: Avoid Pulling/Pushing and Avoid Pinching/Bending Cleanse incision/area with: Soap & Water and Keep Dressing Clean & Dry DC O2, CPAP, BIPAP Needs Home O2 Discharge instructions: No Please Follow Up With: Meena Luciano MD When: Call [phone] to make an appointment for an incision check in 1-2 weeks. Meaningful Use Info Meaningful Use Meaningful Use Diagnoses (Choose all that apply): None applicable Ischemic Stroke Statin Dosing Therapy Reference: STATIN DOSE THERAPY REFERENCE: * Patients > 75 years receive moderate or high dose statin therapy. * Patients 75 years or YOUNGER should receive HIGH intensity statin dose unless contraindicated. You will be required to document reason for non-treatment if statin daily dose does not meet guidelines. HIGH DOSE STATIN THERAPY DAILY Atorvastatin > than or = to 40 mg Rosuvastatin > than or = to 20 mg Amlodipine + Atorvastatin > than or = to 2.5/40 mg Ezetimibe + Simvastatin 10/80 mg Simvastatin 80mg Discharge Plan Admission Admit Date/Time: 08/11/24 23:33 Attending Provider: Meena Luciano Primary Care Provider: Care Physician,Mahsa Primary Discharge Orders/Prescriptions Prescriptions: New oxycodone-acetaminophen [Percocet] 5-325 mg tablet 1 tab PO Q4H PRN (Reason: pain) 7 Days Qty: 20 0RF naproxen 500 mg tablet 500 mg PO BID PRN PRN (Reason: Pain) Qty: 30 1RF No Action PNV-DHA 27 mg iron-1 mg -300 mg capsule 1 cap PO DAILY Referrals / Follow Up: Care Physician,No Primary [Primary Care Provider] - Disposition Disposition (needs filled in before D/C Order can be placed): Home, Self Care
--- NOTE | 2024-08-16 14:27 | CASEMGMT ---
Social Work Assessment Labor and Delivery Unit Patient Address[place] [address] Phone number: [phone] Date of Referral: 08/12/24 Time of Referral:? 0120, [id number], [id number] Referred By: Dr. Luciano Date of Intervention: ?08/13/24? Time of Intervention:? 1120 Reason for Referral:? mental health, substance abuse, depression and THC Sw completed chart review and acknowledges social work consult due to maternal mental health and THC history. Sw presented to bedside and introduced self to mother of baby (RAFITA Cain). Sw explained reason for sw involvement and completed psychosocial assessment. History obtained from: medical records, MOB Household composition: Currently residing in the family home is MOB, father of baby (ANNE- [place] Friend), their one year old son: ANNE Gomez's 10 year old son, Bill and baby Millie when ready for discharge. SAMMI denies any housing concerns, reporting their home is safe and secure. Patient's parent/guardian status:?SAMMI states that she and ANNE have been together or almost four years after being friends for a while. No concerns reported of domestic violence or intimate partner violence. Medical History: ?SAMMI is 33 year old female who is 2, para 1- now 2 following labor and delivery of . SAMMI received routine care during with Dona Ana. SAMMI presented to hospital for scheduled repeat on [birth year] at 38 weeks gestation. Baby girl, named Millie Mayer, was born weighing 6lb with apgars of 8 and 9 at one and five minutes of life, respectfully. MOB feeding baby and states that baby will be followed by Dr. Reveles for pediatrics. Educational Status:?SAMMI reports that both parents attended some college but did not graduate. Financial Status: SAMMI states that she is not working at this time, she stays at home with the children. ANNE works at [employer]. Infant Supplies:??All necessary baby items obtained, including: car seat, safe sleep space, clothes, diapers and wipes. Childcare/Caregiver(s):? Babys primary caregiver will be MOB and ANNE when not at work. Transportation:??Both parents have their drivers license and reliable means of transportation. No barriers Programs/Agencies Involved: ??Family is connected to insurance through [employer], SNAP and WIC. SAMMI states that she is also connected to mental health supports through [facility]. Both parents receive individual therapy and are going to start doing couples counseling. ? Children Services/Legal Issues:??? Referral was made when SAMMI's son was born a year ago due to parents smoking THC. That referral was screened out. Awaiting results for meconium results and will notify [facility]. Behavioral Health Issues: ??Mental Health History: SAMMI states that FOB sees a counselor at [facility] but she is not sure what he talks about with them. MOB states that she has been diagnosed with anxiety, PTSD, trauma and Borderline personality disorder. SAMMI is prescribed Buspar by her OBGYN. SAMMI reports to also being connected to a counselor at [facility], named Neal. SAMMI states that she has future appointments scheduled with her therapist. SAMMI states that she experienced some anxiety throughout her , and she is hopeful that being connected with a therapist during this period will help her mental health so that she does not experience any baby blues or depression or anxiety. ??? Substance Use History:??SAMMI admits to marijuana use throughout to help with nausea. MOB denies illicit substances. Family History:?MOB denies family history of substance use or significant mental health diagnoses? Drug Screens: ??MOB drug screen was presumptive positive and baby's meconium is still pending. Family/Social Stressors:? SAMMI denies and issues, concerns or stressors at this time. Support Systems: FOB and maternal grandma Depression/Shaken Baby/Safe Sleeping:? Shruthi educated MOB on signs and symptoms of baby blues and depression and anxiety. MOB reports that she is hopeful that FOB would be able to recognize if she is struggling and would know how to help and support her. MOB states that she is also thankful to have mental health support as well. Shruthi educated MOB on shaken baby prevention and ABCs of safe sleep. Sw encouraged MOB to use healthy and safe coping mechanisms opposed to seeking comfort from drugs or alcohol. MOB expressed understanding. ASSESSMENT:? MOB and baby admitted following labor and delivery. MOB sitting in bed comfortably and receptive to meeting with shruthi. MOB answered questions and engaged in completion of assessment. MOB states that FOB at home to help with the older children, and will return when MOB ready for discharge. MOB has mental health and substance use history positive for anxiety, depression, borderline, trauma and PTSD. MOB is connected to mental health services and supports and is prescribed medication to help her by her OBGYN. MOB was observed to hold and care for baby in loving and attentive manner. Safe Plan of Care for infant related to substance use:? MOB denies intention of continuing to use now that baby is here. PLAN:? No other services requested or indicated. MOB and baby to be discharged when medically ready. Parents were provided literature regarding: signs and symptoms of baby blues and mood and anxiety disorders, Help Me Grow, shaken baby prevention, ABCs of safe sleep and a list of county resources that are available for them should any needs present themselves. Brad Gonsalves, MANAGER SOLUTION, JAVA PROJECT MANAGER
[2024-08-19 13:08] LABS: Opiates, Urine Negative (Cutoff=200)
== END 2024-08-13 16:30 | disposition home or self-care (01) | DRG 540 ==
LOC: WPOUT 23:36 → WP 23:36
PROVIDERS: Admitting Provider Obstetrics & Gynecology; Referring Provider Obstetrics & Gynecology; Visit Provider Obstetrics & Gynecology
DX: O76 Abnormality in fetal heart rate and rhythm complicating labor and delivery (principal); O99.214 Obesity complicating childbirth; F12.99 Cannabis use, unspecified with unspecified cannabis-induced disorder; F32.A Depression, unspecified; O99.324 Drug use complicating childbirth; F60.3 Borderline personality disorder; F17.210 Nicotine dependence, cigarettes, uncomplicated; F41.9 Anxiety disorder, unspecified; O34.211 Maternal care for low transverse scar from previous cesarean delivery; Z37.0 Single live birth; O99.334 Smoking (tobacco) complicating childbirth; O99.824 Streptococcus B carrier state complicating childbirth; O9A.22 Injury, poisoning and certain other consequences of external causes complicating childbirth; O98.52 Other viral diseases complicating childbirth; R87.810 Cervical high risk human papillomavirus (HPV) DNA test positive; O99.344 Other mental disorders complicating childbirth; Z3A.38 38 weeks gestation of pregnancy; Q51.9 Congenital malformation of uterus and cervix, unspecified; O99.893 Other specified diseases and conditions complicating puerperium
CPT/HCPCS: 59025; 59050; 80053; 80307; 85025; 85027; 85384; 85610; 85730; 86780; 86850; 86900; 86901; 88307; A4216; J2405

== ENCOUNTER → 2024-09-24 | Outpatient (CLI) | payer MEDICAID, SELFPAY ==
--- OUTSIDE RECORDS SUMMARY | 2024-09-24 22:17 | XMS RPT_ITS | CCD ---
Author Organization [facility] Care Team Providers Care Fruit Dumper Name Role Phone NICOLÁS MESA Unavailable Unavailable NICOLÁS MESA Unavailable Unavailable AA NO PCP, NO PCP Unavailable Unavailable Unavailable Primary Care Provider Unavailluisa e Dr. Meena Luciano Attending Provider [phone] REECE Marin Attending Provider Care Physician, No Primary Primary Care Provider Unavailable Care Physician, No Primary Referring Provider Un available REECE Marin Attending Provider [phone] Care Physician, No Primary Primary Care Provider Unavailable Care Physician, No Primary Referring Provider Un available Dr. Katelin Goins Attending Provider [phone] REECE Snyder Attending Provider Care Physician, No Primary Primary Care Provider Unavailable Care Physician, No Primary Referring Provider Un available REECE Marin Attending Provider [phone] PATRICA Francis Attending Provider Dr. Meena Luciano Admit Provider Dr. Meena Luciano Attending Provider [phone] Dr. Meena Luciano Referring Provider [phone] Dr. Meena Luciano Other Provider Care Physician, No Primary Primary Care Provider Unavailable Care Physician, No Primary Referring Provider Un available REECE Snyder Attending Provider Dr. Katelin Goins Attending Provider [phone] REECE Marin Attending Provider PATRICA Francis Attending Provider Dr. Meena Luciano Admit Provider Dr. Meena Luciano Attending Provider [phone] Dr. Meena Luciano Referring Provider [phone] Dr. Meena Luciano Other Provider [phone] Unavailable Primary Care Provider Unavailabl e NO PRIMARY CARE, MD Primary Care Unavailable KATELIN CONRAD Referring Unavailab LARRY Olivas Attending Unavailable Care Physician, No Primary Primary Care Provider Unavailable Care Physician, No Primary Referring Provider Un available Dr. Katelin Goins DO Attending Provider Dr. Katelin Goins DO Referring Provider Dr. Meena Luciano MD Attending Provider Mahnaz WATER MANGLE TENDER-C, Mary Attending Provider [phone] Dr. Meena Luciano MD Referring Provider Dr. Meena Luciano MD Other Provider [phone] Tomas NEWELL, Anna Attending Provider [phone] Anna Marin CNM Referring Provider [phone]) Care Physician, No Primary Primary Care Provider Unavailable Care Physician, No Primary Referring Provider Un available Dr. Meena Luciano MD Attending Provider [phone] Gerry Montejo DO, Dr. Thomason Attending Provider Dr. Meena Luciano MD Admit Provider [phone] Care Physician, No Primary Primary Care Provider Unavailable Care Physician, No Primary Referring Provider Un available Care Physician, No Primary Primary Care Unava ilable Care Physician, No Primary Referring Unava ilable Anna Marin Attending Unavailable Care Physician, No Primary Primary Care Unava ilable Care Physician, No Primary Referring Unava ilable Katelin Goins Attending Unavailabl e Care Physician, No Primary Referring Unava ilable Care Physician, No Primary Primary Care Unava ilable Anna Marin Attending Unavailable Care Physician, No Primary Primary Care Unava ilable Care Physician, No Primary Referring Unava ilable Anna Marin Attending Unavailable Meena Luciano Referring Unavailable Meena Luciano Attending Unavailable Care Physician, No Primary Primary Care Unava ilable Anna Marin Attending Unavailable Anna Marin Referring Unavailable Care Physician, No Primary Primary Care Unava ilable Care Physician, No Primary Primary Care Unava ilable Katelin Goins Attending Unavailabl e Leydae Vellu, Katelin Referring Unavailabl e Care Physician, No Primary Primary Care Unava ilable Anna Marin Referring Unavailable Anna Marin Attending Unavailable Care Physician, No Primary Primary Care Unava ilable Gerry Montejo, Katelin Attending Unavailabl e Leydae Vellu, Katelin Admitting Unavailabl e Care Physician, No Primary Primary Care Unava ilable Marcanthony, Meena Consulting Unavailable Marcanthony, Meena Admitting Unavailable Marcanthony, Meena Attending Unavailable Marcanthony, Meena Referring Unavailable Marcanthony, Meena Referring Unavailable Marcanthony, Meena Consulting Unavailable Marcanthony, Meena Attending Unavailable Care Physician, No Primary Primary Care Unava ilable Care Physician, No Primary Primary Care Unava ilable Care Physician, No Primary Referring Unava ilable Katelin Goins Attending Unavailabl e Care Physician, No Primary Primary Care Unava ilable Care Physician, No Primary Referring Unava ilable MarcanthMeena jenkins Attending Unavailable Care Physician, No Primary Referring Unava ilable Anna Marin Attending Unavailable Care Physician, No Primary Primary Care Unava ilable Care Physician, No Primary Referring Unava ilable Katelin Goins Attending Unavailabl e Care Physician, No Primary Referring Unava ilable Marcanthgregory, Meena Attending Unavailable Care Physician, No Primary Primary Care Unava ilable Mahnaz WATER MANGLE TENDER, Mary Attending Unavailable Care Physician, No Primary Referring Unava ilable Care Physician, No Primary Primary Care Unava ilable Care Physician, No Primary Referring Unava ilable Anna Marin Attending Unavailable Care Physician, No Primary Primary Care Unava ilable Care Physician, No Primary Referring Unava ilable Care Physician, No Primary Primary Care Unava ilable Katelin Goins Attending Unavailabl e Care Physician, No Primary Primary Care Unava ilable Marcanthony, Meena Admitting Unavailable Marcanthony, Meena Referring Unavailable Marcanthony, Meena Attending Unavailable Care Physician, No Primary Referring Unava ilable Marcanthony, Meena Attending Unavailable Care Physician, No Primary Primary Care Unava ilable Care Physician, No Primary Referring Unava ilable Anna Marin Attending Unavailable Care Physician, No Primary Primary Care Unava ilable Care Physician, No Primary Referring Unava ilable Care Physician, No Primary Primary Care Unava ilable Anna Marin Attending Unavailable Care Physician, No Primary Primary Care Provider Unavailable Care Physician, No Primary Referring Provider Un available Anna Marin CNM Attending Provider Mustapha NEVAREZ, Dr. Robledo Attending Provider Mustapha NEVAREZ, Dr. Robledo Referring Provider [phone] Mustapha NEVAREZ, Dr. Robledo Other Provider [phone] Allergies Allergy Classification Reported Allergen(s) Allergy Type Date of Onset Reaction(s) Facility (2 sources) Aspirin; Translations: [ASPIRIN] Drug Allergy 05-22-2019 Unknown [facility] (6 sources) bee venom protein (honey bee) Allergy to substance 05-27-2024 [facility] (1 source) bee venom protein (honey bee) Drug allergy (disorder) 08-27-2024 [facility] Repository Medications Current Medications Medication Drug Class(es) Dates Sig (Normalized) Sig (Original) amoxicillin 875 mg oral tablet (14 sources) Penicillin-class Antibacterial Start: 04-25-2024 End: 05-02-2024 take 1 tablet by mouth twice daily amoxicillin (AMOXIL) 875 mg tablet Take 1 tablet by mouth two times a day for 7 days. 14 tablet 04/25/2024 05/02/2024 Active Start: 08-06-2021 End: 08-16-2021 take 1 capsule by mouth twice daily Amoxicillin 500 mg capsule Discontinued 500 mg PO TWICE A DAY 20 10 0 August 06, 2021 12:00am August 15, 2021 12:00am August 16, 2021 12:03am azithromycin 250 mg oral tablet (1 source) Macrolide Antimicrobial Start: 12-26-2023 End: 12-30-2023 take 2 tablets by mouth once daily, then take 1 tablet by mouth once daily azithromycin (ZITHROMAX) 250 mg tablet Take 2 tablets by mouth once daily for 1 day, THEN 1 tablet once daily for 4 days. 6 tablet 12/26/2023 12/30/2023 Active escitalopram 5 mg oral tablet (1 source) Serotonin Reuptake Inhibitor Start: 09-24-2024 take 1 tablet by mouth once daily Escitalopram Oxalate (Lexapro) 5 mg tablet Active 5 mg PO daily 30 3 September 24, 2024 12:00am fluticasone propionate 0.05 mg/actuat metered dose nasal spray (4 sources) Corticosteroid Start: 09-05-2023 take 1 spray(s) nasal route once daily fluticasone (FLONASE ALLERGY RELIEF) 50 mcg/actuation nasal spray Use 1 [place] in each nostril once daily. 11.1 mL 09/05/2023 Active 12 hr guaiFENesin 600 mg extended release oral tablet (1 source) Start: 09-05-2023 End: 09-12-2023 take 1 tablet by mouth twice daily as needed guaiFENesin (MUCINEX) 600 mg 12 hr tablet Take 1 tablet by mouth two times a day as needed for cold/allergy symptoms (cough) for up to 7 days. 14 tablet 0 09/05/2023 09/12/2023 Active Multivit 77-Bngl-Enehdk 1-Dha (Pnv-Dha) 27 mg iron-1 mg -300 mg capsule (13 sources) Start: 09-02-2022 Multivit 28-Agby-Luhyfs 1-Dha (Pnv-Dha) 27 mg iron-1 mg -300 mg capsule Active 1 NMA PO DAILY September 02, 2022 12:00am Start: 09-02-2022 Multivit 47-Ir on-Folate 1-Dha (Pnv-Dha) 27 mg iron-1 mg -300 mg capsule Active 1 NMA PO DAILY September 02, 2022 12:00am Start: 09-02-2022 Multivit 47-Ir on-Folate 1-Dha (Pnv-Dha) 27 mg iron-1 mg -300 mg capsule Active CAP PO September 01, 2022 11:00pm Start: 09-02-2022 Multivit 47-Ir on-Folate 1-Dha (Pnv-Dha) 27 mg iron-1 mg -300 mg capsule Active CAP PO September 02, 2022 12:00am 24 hr nicotine 0.292 mg/hr transdermal system (8 sources) Cholinergic Nicotinic Agonist Start: 03-28-2024 nicotine (NICODERM) 7 mg/24 hr 1 patch transdermally every 24 hours 03/28/2024 Active Start: 03-22-2024 End: 08-11-2024 Nicotine 7 mg/24 hr patch 24 hour Discontinued 1 NMA TD Q24H 14 0 March 22, 2024 1:00am August 11, 2024 8:31pm Positive testing for Streptococcus agalactiae Streptococcus, group B, as the cause of diseases classified elsewhere norethindrone 0.35 mg oral tablet (1 source) Start: 09-24-2024 take 1 tablet by mouth once daily Norethindrone (Contraceptive) (Senia) 0.35 mg tablet Active 0.35 mg PO daily 84 4 September 24, 2024 12:00am start day 1 of menstrual cycle no115/iron/folic acid ( 19 ORAL) (3 sources) take 1 tablet by mouth once daily no115/iron/folic acid ( 19 ORAL) Take 1 tablet by mouth once daily. Active therapeutic multivitamin-minerals (THERAPY M) 9 mg iron-400 mcg tablet (3 sources) therapeutic multivitamin-minerals (THERAPY M) 9 mg iron-400 mcg tablet Take 2 tablets by mouth once daily. Active Completed/Discontinued Medications Medication Drug Class(es) Dates Sig (Normalized) Sig (Original) acetaminophen 325 mg / oxyCODONE hydrochloride 5 mg oral tablet (12 sources) Opioid Agonist Start: 08-12-2024 End: 08-27-2024 Oxycodone-Acetamino phen (Percocet) 5-325 mg tablet Discontinued 1 {tbl} PO Q4H as needed for pain 20 7 0 August 12, 2024 August 27, 2024 10:12am delivery delivered Encounter for delivery without indication Start: 04-28-2023 End: 05-09-2023 Oxycodone-Acetaminophen (Per cocet) 5-325 mg tablet Discontinued 1 {tbl} PO EVERY 6 HOURS as needed for pain 20 7 0 April 28, 2023 May 09, 2023 12:23pm delivery delivered Encounter for delivery without indication amoxicillin 500 mg / clavulanate 125 mg oral tablet (11 sources) Penicillin-class Antibacterial Start: 01-06-2023 End: 02-27-2023 Amoxicillin-Pot Clavulanate (Augmentin) 500-125 mg tablet Discontinued 1 {tbl} PO TWICE A DAY 14 0 January 06, 2023 12:00am February 27, 2023 4:28pm busPIRone hydrochloride 10 mg oral tablet (20 sources) Start: 12-21-2023 End: 08-11-2024 take 5 mg by mouth twice daily Buspirone 10 mg tablet Discontinued 5 mg PO TWICE A DAY 60 3 May 13, 2024 12:26pm August 11, 2024 8:31pm Depression Depression, unspecified Start: 11-11-2022 End: 12-21-2023 take 1 tablet by mouth twice daily Buspirone 10 mg tablet Discontinued 10 mg PO TWICE A DAY 30 November 11, 2022 10:27am December 21, 2023 10:17am Depression Depression, unspecified Start: 09-08-2022 End: 11-11-2022 take 1 tablet by mouth twice daily Buspirone 5 mg tablet Discontinued 5 mg PO TWICE A DAY 60 September 08, 2022 12:00am November 11, 2022 10:28am Inguinal cyst cephalexin 500 mg oral capsule (7 sources) Cephalosporin Antibacterial Start: 12-21-2023 End: 04-15-2024 take 1 capsule by mouth twice daily Cephalexin 500 mg capsule Discontinued 500 mg PO TWICE A DAY 14 0 December 21, 2023 12:00am April 15, 2024 4:56pm Urinary tract infection in mother during , antepartum Unspecified infection of urinary tract in , unspecified trimester Take 2 times daily until gone clobetasol propionate 0.5 mg/ml topical cream (6 sources) Corticosteroid Start: 05-13-2024 End: 08-11-2024 Clobetasol 0.05 % cream Discontinued TOPICAL TWICE A DAY May 13, 2024 1:00am August 11, 2024 8:31pm Ethinyl Estradiol / Norethindrone (5 sources) Estrogen Start: 11-04-2019 End: 12-26-2023 take 1 tablet by mouth once daily , 1-20 mg-mcg per tablet Indications: Encounter for surveillance of contraceptive pills TAKE 1 TABLET BY MOUTH EVERY DAY 84 tablet 11/04/2019 12/26/2023 Discontinued Start: 11-04-2019 take 1 tablet by [place] once daily 04/01, , 1-20 mg-mcg per tablet Indications: Encounter for surveillance of contraceptive pills TAKE 1 TABLET BY MOUTH EVERY DAY 84 tablet 11/04/2019 Active Start: 11-04-2019 take 1 tablet by [place] once daily 04/01, 21, 1-20 mg-mcg per tablet Indications: Encounter for surveillance of contraceptive pills TAKE 1 TABLET BY MOUTH EVERY DAY 84 tablet 0 11/04/2019 Active Comment on above: TAKE 1 TABLET BY [place] TH EVERY DAY ferrous fumarate 325 mg oral tablet (10 sources) Start: 04-03-19 End: 06-09-19 take 1 tablet by mouth once daily Ferrous Fumarate 325 mg (106 mg iron) tablet Discontinued 325 mg PO DAILY April 03, 2023 1:00am June 09, 2023 3:15pm ferrous gluconate 240 mg oral tablet (6 sources) Start: 12-21-19 End: 08-12-19 take 1 tablet by mouth once daily Ferrous Gluconate (Ferate) 240 mg (27 mg iron) tablet Discontinued 240 mg PO daily December 21, 2023 12:00am August 11, 2024 8:31pm ibuprofen 200 mg oral capsule (13 sources) Nonsteroidal Anti-inflammatory Drug Start: 02-08-20 End: 09-03-19 take 1 capsule by mouth three to four times daily as needed Ibuprofen 200 mg capsule Discontinued 200 mg PO 3 to 4 times per day as needed February 07, 2018 1:00am September 02, 2022 3:35pm MULTIVITAMIN ORAL (5 sources) End: 12-26-19 MULTIVITAMIN ORAL Take by mouth. 12/26/2023 Discontinued MULTIVITAMIN ORA L Take by mouth. Active MULTIVITAMIN ORA L Take by mouth. 0 Active Comment on above: Take by mouth. naproxen 500 mg oral tablet (12 sources) Nonsteroidal Anti-inflammatory Drug Start: 5 End: 5 take 1 tablet by mouth twice daily as needed for pain Naproxen 500 mg tablet Discontinued 500 mg PO TWICE DAILY NEEDED as needed for Pain 11 04August 12, 2024 12:00am September 24, 2024 11:16am Start: 04-28-2023 End: 06-09-2023 take 1 tablet by mouth twice daily as needed for pain Naproxen 500 mg tablet Discontinued 500 mg PO TWICE DAILY NEEDED as needed for Pain 11 04April 28, 2023 1:00am June 09, 2023 3:15pm ondansetron 4 mg disintegrating oral tablet (13 sources) Serotonin-3 Receptor Antagonist Start: 09-27-2022 End: 04-03-2023 take 1 tablet by mouth every four hours as needed for nausea and vomiting Ondansetron 4 mg tablet,disintegrating Discontinued 4 mg PO Q4H as needed for nausea and vomiting 60 2 September 27, 2022 12:00am April 03, 2023 3:50pm prochlorperazine 10 mg oral tablet (13 sources) Phenothiazine Start: 09-17-2022 End: 09-27-2022 take 1 tablet by mouth every eight hours as needed for nausea and vomiting Prochlorperazine Maleate (Compazine) 10 mg tablet Discontinued 10 mg PO Q8H as needed for nausea and vomiting 90 3 September 17, 2022 12:00am September 27, 2022 3:55pm Problems Active Problems Problem Classification Problem Date Documented Date Episodic/Chronic Asthma (20 sources) Asthma; Translations: [Unspecified asthma, uncomplicated] 09-08-2022 Chronic Comment on above: intermittent use of inhalerplan 36 week growth scan Bacterial infection; unspecified site (20 sources) Bacteria present; Translations: [Streptococcus, group B, as the cause of diseases classified elsewhere] Onset: 08-08-2024 12-22-2023 Episodic Comment on above: treat if in labor. Cancer of cervix (20 sources) Atypical squamous cells of undetermined significance on cervical Papanicolaou smear; Translations: [Atypical squamous cells of undetermined significance on cytologic smear of cervix (ASC-US)] Onset: 08-08-2024 08-15-2023 Episodic Comment on above: [place] done repeat pap 08/04 Crushing injury or internal injury (9 sources) Rupture of uterus; Translations: [Other injury of uterus, initial encounter] Onset: 08-29-2024 08-12-2024 Episodic External Injury - Struck by; against (1 source) Striking against or struck by other objects, initial encounter; Translations: [STRIKING AGNST/STRUCK OTH OBJ INIT] Onset: 12-21-2016 Fever of unknown origin (12 sources) Fever; Translations: [Fever, unspecified] 04-23-2023 Episodic Genitourinary congenital anomalies (20 sources) Congenital uterine anomaly; 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, unspecified] Onset: 08-08-2024 12-21-2023 Chronic Comment on above: tilted Genitourinary symptoms and ill-defined conditions (16 sources) Increased frequency of urination; Translations: [Frequency of micturition] 11-11-2022 Episodic Hypertension complicating ; childbirth and the puerperium (10 sources) -induced hypertension; Translations: [Gestational [-induced] hypertension without significant proteinuria, unspecified trimester] 04-29-2023 Episodic Immunizations and screening for infectious disease (2 sources) Encounter for immunization; Translations: [ENCOUNTER FOR IMMUNIZATION] Onset: 12-21-2016 Episodic Malaise and fatigue (12 sources) Fatigue; Translations: [Other fatigue] 04-23-2023 Episodic Mood disorders (20 sources) Depressive disorder; Translations: [Depression] 09-08-2022 Chronic Comment on above: erna okeefe baby counselor or Mood disorders (2 sources) Mood disorders; Translations: [Depression, unspecified] Onset: 08-08-2024 Nonmalignant breast conditions (20 sources) Abscess of nipple; Translations: [Abscess of the breast and nipple] 01-06-2023 Episodic Other complications of ; puerperium affecting management of mother (17 sources) Deliveries by ; Translations: [Encounter for delivery without indication] 04-29-2023 Episodic Comment on above: SM LTCS boy Jason NR FHTS covid 38 7 cm narrow pelvis from above RLTCS uterine ruptur e girl janusz 38 SM Other complications of ; puerperium affecting management of mother (4 sources) Encounter for delivery without indication; Translations: [ delivery, without mention of indication, delivered, with or without mention of antepartum condition] Onset: 08-29-2024 04-30-2023 Episodic Other complications of (20 sources) Maternal obesity complicating , childbirth and the puerperium, antepartum; Translations: [Obesity complicating , unspecified trimester] 04-15-2024 Chronic Comment on above: A1C Other complications of (2 sources) Obesity complicating , second trimester; Translations: [Obesity complicating , second trimester] Onset: 08-08-2024 Chronic Other complications of (1 source) Obesity complicating , unspecified trimester; Translations: [Obesity complicating , unspecified trimester] Onset: 02-23-2024 Chronic Other complications of (20 sources) High risk ; Translations: [Supervision of high risk , unspecified, unspecified trimester] 09-02-2022 Episodic Comment on above: PRR, , MANUEL , girl Janusz PC Jason, BF Mustapha , MANUEL 07/04/24. Brandon Gomez Boyfriend-Mustapha Khan [id number]-lives with them PT, [id number] with mother) Other complications of (8 sources) Late heart deceleration; Translations: [Maternal care for abnormalities of the heart rate or rhythm, unspecified trimester, not applicable or unspecified] 04-29-2023 Episodic Other complications of (2 sources) Maternal care for abnormalities of the heart rate or rhythm, unspecified trimester, not applicable or unspecified; Translations: [Abnormality in heart rate or rhythm, unspecified as to episode of care or not applicable] 04-30-2023 Episodic Other complications of (2 sources) Supervision of high risk , unspecified, second trimester; Translations: [Supervision of high risk , unspecified, second trimester] Onset: 08-08-2024 Episodic Other complications of (1 source) Supervision of other high risk pregnancies, third trimester; Translations: [Supervision of other high risk pregnancies, third trimester] Onset: 08-29-2024 Episodic Other connective tissue disease (2 sources) Pain in finger of right hand; Translations: [Pain in right finger(s)] Episodic Other injuries and conditions due to external causes (2 sources) Injury of right hand; Translations: [Unspecified injury of right wrist, hand and finger(s), initial encounter] Episodic Other lower respiratory disease (12 sources) Cough; Translations: [Cough] 04-23-2023 Episodic Other lower respiratory disease (1 source) Lower respiratory tract infection; Translations: [Unspecified acute lower respiratory infection] 12-26-2023 Episodic Other and delivery including normal (20 sources) ; Translations: [Encounter for supervision of normal , unspecified, unspecified trimester] Onset: 12-21-2023 10-14-2022 Episodic Comment on above: NIPT with gender, de clines carrier. nl anatomy NIPT with gender, de clines carrier Other screening for suspected conditions (not mental disorders or infectious disease) (1 source) Encounter for screening for diabetes mellitus; Translations: [Encounter for screening for diabetes mellitus] Onset: 06-05-2024 Episodic Other skin disorders (13 sources) Disorder of inguinal region; Translations: [Inguinal cyst] 09-08-2022 Episodic Comment on above: pt unsure if cyst/ab cess/boil. Has hx of these in groin/buttocks area especially during menses. Has areas lanced in past. Other upper respiratory disease (13 sources) Seasonal allergy; Translations: [Other seasonal allergic rhinitis] 09-08-2022 Chronic Other upper respiratory disease (9 sources) Congestion of nasal sinus; Translations: [Nasal congestion] 04-23-2023 Episodic Other upper respiratory disease (3 sources) Nasal congestion; Translations: [Other disease of nasal cavity and sinuses] 04-23-2023 Episodic Other upper respiratory infections (17 sources) Pharyngitis; Translations: [Acute pharyngitis, unspecified] 09-08-2022 Episodic Otitis media and related conditions (1 source) Acute right otitis media; Translations: [Otitis media, unspecified, right ear] 04-25-2024 Episodic Personality disorders (20 sources) Borderline personality disorder; Translations: [Borderline personality disorder] Onset: 08-08-2024 12-21-2023 Chronic Comment on above: sees counselor Polyhydramnios and other problems of amniotic cavity (6 sources) Spontaneous rupture of membranes 04-28-2023 Episodic Residual codes; unclassified (9 sources) Gestation period, 37 weeks; Translations: [37 weeks gestation of ] 04-23-2023 Episodic Residual codes; unclassified (6 sources) 37 weeks gestation of ; Translations: [ state, incidental] Onset: 08-02-2024 04-23-2023 Episodic Residual codes; unclassified (6 sources) Infertile 09-08-2022 Episodic Comment on above: attempted 5 yrs with a different partner Residual codes; unclassified (2 sources) 38 weeks gestation of ; Translations: [38 weeks gestation of ] Onset: 08-08-2024 Episodic Residual codes; unclassified (1 source) History of uterine scar from previous surgery; Translations: [History of uterine scar from previous surgery] Onset: 08-08-2024 Episodic Residual codes; unclassified (1 source) 34 weeks gestation of ; Translations: [34 weeks gestation of ] Onset: 07-12-2024 Episodic Residual codes; unclassified (1 source) 31 weeks gestation of ; Translations: [31 weeks gestation of ] Onset: 06-24-2024 Episodic Screening or history of mental health and substance abuse (14 sources) Personal history of nicotine dependence; Translations: [Ex-cigarette smoker] Onset: 12-21-2016 09-08-2022 Episodic Comment on above: <10 /day for 8 yrs. Stop date 08/23/22., Counseling provided>3 minutes Sexually transmitted infections (not HIV or hepatitis) (2 sources) Cervical high risk human papillomavirus (HPV) DNA test positive; Translations: [Cervical high risk human papillomavirus (HPV) DNA test positive] Onset: 08-08-2024 Episodic Substance-related disorders (20 sources) Marijuana user; Translations: [Cannabis use, unspecified, uncomplicated] Onset: 08-08-2024 09-02-2022 Episodic Comment on above: occasional for anxie ty, counseling provided. last Oct 2023 Unclassified (4 sources) Normal labor; Translations: [Active labor at term] 04-29-2023 Viral infection (14 sources) Disease caused by 2019-nCoV; Translations: [COVID-19] 04-23-2023 Episodic Past or Other Problems Problem Classification Problem Date Documented Da te Episodic/Chronic Hemorrhage during ; abruptio placenta; placenta previa (1 source) Threatened ; Translations: [Threatened ] Onset: 12-21-2023 Episodic Open wounds of extremities (1 source) Laceration without foreign body of right index finger with damage to nail, initial encounter; Translations: [LAC W/O FB RT IF W/DAMAGE NAIL INIT] Onset: 12-21-2016 Episodic Other aftercare (1 source) Other oysterman (current) drug therapy; Translations: [OTH CHIEF LIBRARIAN BRANCH OR DEPARTMENT CURRENT DRUG THERAPY] Onset: 12-21-2016 Episodic Other complications of ; puerperium affecting management of mother (1 source) Other specified obstetric trauma; Translations: [Other specified obstetric trauma] Onset: 05-16-2024 Episodic Other complications of (20 sources) Supervision of high risk , unspecified, unspecified trimester; Translations: [Supervision of unspecified high-risk ] Onset: 02-23-2024 09-08-2022 Episodic Other injuries and conditions due to external causes (1 source) Other specified injuries of right wrist, hand and finger(s), initial encounter; Translations: [OTH SPEC INJ RT WRST HND FNGR INIT] Onset: 12-21-2016 Episodic Residual codes; unclassified (1 source) 27 weeks gestation of ; Translations: [27 weeks gestation of ] Onset: 05-27-2024 Episodic Residual codes; unclassified (1 source) 25 weeks gestation of ; Translations: [25 weeks gestation of ] Onset: 05-13-2024 Episodic Residual codes; unclassified (1 source) 14 weeks gestation of ; Translations: [14 weeks gestation of ] Onset: 02-23-2024 Episodic Unclassified (13 sources) history of knee pain 10-11-2021 Unclassified (7 sources) Infertile; Translations: [Infertility] 09-08-2022 Unclassified (4 sources) Spontaneous rupture of membranes; Translations: [Spontaneous rupture of amniotic membranes] 04-29-2023 NEGATED: Highlighted row has been ruled out!Unclassified (3 sources) No known active problems 12-26-2023 Results Test Name Value Interpretation Reference Range Facility Otolaryngologist Office Visit Reporton 08-27-2024 Otolaryngologist Office Visit Report [facility] [address], [facility] [address] [place] [address] OFFICE VISIT Date of Service: 08/27/24 MR#: [id number] Acct: [id number] Name: DAVID POST Rep #: [id number] 1 : 1990 Provider: Dr. Katelin Sotelo DO Age/Sex: 33/F [place] [facility] [place]: Signed Intake Vital Signs 05/27/24 14:51 08/11/24 20:18 08/27/24 10:11 Height 5 ft 5 in 5 ft 3 in 5 ft 3 in Weight: 166 lb 4 oz BMI 29.4 BP 114/75 Intake Visit Reasons: 2 wk RLTCS Chief Complaint: 2w incision check Documentation Clerk Required: No Is patient in pain?: No Allergies bee venom protein (honey bee) (bee sting) Allergy (Verified 08/27/24 10:12) Hives Medications ???Medication ???Instructions ???Recorded ???Confirmed ???Type multivitamin no.47-iron fum 27 1 cap PO DAILY 09/02/22 08/27/24 History mg-folate no.1 1 mg-dha 300 mg capsule (PNV-DHA) naproxen 500 mg tablet 500 mg PO BID PRN PRN Pain #30 tab s 08/12/24 08/27/24 Rx Post menopausal: No Patient : No : No PFSH Medical History Adopted depression Depression delivery delivered Borderline personality disorder Marijuana abuse Uterine anomaly Trauma Anxiety History of asthma History of back pain History of anemia Social History adopted: Yes household members: significant other, children and other details: JOSELYN Luciano (has two kids Ryan Khan lives with his mom) [facility] housing: house number of children: 2 current occupational status: other current occupation: [employer] current occupational exposures/hazards: No pets and animals: Yes (not managing litter box) pets and animals: cat(s) leisure activities: exercise history of recent travel: No sexually active: Yes Smoking Status: Current every day smoker tobacco type: cigarettes Tobacco: How many years used: 8 quit status: quit date established alcohol intake: never substance use type: marijuana and other details: last Oct 2022, counseling provided. Pt agreeable to drug testing well-balanced diet: daily or most days eating out: rarely or never during the past year weight has: decreased > 10 lbs what type of physical activity do you participate in: walking frequency: 1-2 times per week yesenia/taoist: None seatbelt use: always do you feel safe at home: Yes additional social history: JOSELYN Mustapha- [facility] 2 wk RLTCS Details: DAVID POST is a 33 year old who presents for 2 week post op section. She has some tenderness on the right side of incision. no other complaints. History 2 Elective abortions Hx Para 2 Spontaneous abortions Hx # Term Pregnancies 2 Ectopic pregnancies Hx # Pregnancies Multiple births # of living children 2 Past Pregnancies Del. Date Name GA/Weeks Outcome Route Bth Weight Infant Gen Labor Lgth Anesthesia Del Locatn Provider FOB 02/17/24 Jason 39 live - full term 6lbs 12oz Male [facility] Mustapha Luciano 08/12/24 [place] 38 live - full term 6lb 1oz Female general [facility] JOSELYN Luciano Delivery Date: 04/29/23 Last Updated by: Dee Dee Dejesus [facility] Delivery Date: 08/12/24 Last Updated by: Katelyn Garcia RN [facility] 38 uterine rupture girl janusz ROS ENT ENT: Reports system reviewed and no additional complaints, except as documented Cardio Card: Reports system reviewed and no additional complaints, except as documented Resp Resp: Denies cough, dyspnea or dyspnea on exertion GI GI: Denies abdominal pain, bloating or change in bowel habits : Denies vaginal odor or vaginal pruritus Details: lochia is mild Musc Musc: Reports system reviewed and no additional complaints, except as documented Exam Const General: cooperative, healthy appearing and comfortable Resp Effort Inspection: normal respiratory effort GI Palpation: soft and nontender Rectal Exam: other Other: incision is clean, dry, intact Other: incision is clean, dry, intact. Extrem General: no edema Coding Level of Care Code Off vis,est,level 3 Diagnoses delivery delivered O82 Assessment and Plan Assessment and Plan (1) delivery delivered: Status: Acute Comment: [facility] uterine rupture girl janusz 38 SM Plan: healing well without complaints. rto in weeks for exam 08/27/24 1112 Date Katelin Moore Signature: Date (if applicable) CC: Normal [facility] Opiates, Ur Confirmon 2024 OPIATES,UR Negative Normal [id number]=421 [facility] Comment on above: Order Comment: UNK Result Comment: Opia te test includes Codeine and Morphine only. Performed By: #### L 3410.9994, L3380.9100 #### [facility] [address] [place], [address] L3410.9994on 08-15-2024 [facility] Misc. 2 COMMENT Normal . [facility] Comment on above: Order Comment: [id number] Confirm urine THC - RT Result Comment: Perf ormed at: CB - [facility] [address] [id number] Gastroenterologist: William Goodman PhD, Phone: [phone] Performed By: #### L 3410.9994, L3380.9100 #### [facility] [address] [place], [address] CBC-Complete Blood Cnt No Di ffon 08-13-2024 HCT Normal 37-47 [facility] Comment on above: Order Comment: Comme nts: Day #1 Reason for Laboratory Test Result Comment: Canc elled via OM: Order edited - Discontinuing original order Performed By: #### L 100.0500 #### [facility] [address] [place], [address] HGB Normal 12.0-15.0 [facility] Comment on above: Order Comment: Comme nts: Day #1 Reason for Laboratory Test Result Comment: Canc elled via OM: Order edited - Discontinuing original order Performed By: #### L 100.0500 #### [facility] [address] [place], [address] MCH Normal 27.0-32.0 [facility] Comment on above: Order Comment: Comme nts: Day #1 Reason for Laboratory Test Result Comment: Canc elled via OM: Order edited - Discontinuing original order Performed By: #### L 100.0500 #### [facility] [address] [place], [address] MCHC Normal 32-36 [facility] Comment on above: Order Comment: Comme nts: Day #1 Reason for Laboratory Test Result Comment: Canc elled via OM: Order edited - Discontinuing original order Performed By: #### L 100.0500 #### [facility] [address] [place], [address] MCV Normal 81-99 [facility] Comment on above: Order Comment: Comme nts: Day #1 Reason for Laboratory Test Result Comment: Canc elled via OM: Order edited - Discontinuing original order Performed By: #### L 100.0500 #### [facility] [address] [place], [address] PLT Normal 150-450 [facility] Comment on above: Order Comment: Comme nts: Day #1 Reason for Laboratory Test Result Comment: Canc elled via OM: Order edited - Discontinuing original order Performed By: #### L 100.0500 #### [facility] [address] [place], [address] RBC Normal 4.2-5.4 [facility] Comment on above: Order Comment: Comme nts: Day #1 Reason for Laboratory Test Result Comment: Canc elled via OM: Order edited - Discontinuing original order Performed By: #### L 100.0500 #### [facility] [address] [place], [address] RDW CV Normal 11.6-14.6 [facility] Comment on above: Order Comment: Comme nts: Day #1 Reason for Laboratory Test Result Comment: Canc elled via OM: Order edited - Discontinuing original order Performed By: #### L 100.0500 #### [facility] [address] [place], [address] RDW SD Normal 35.1-43.9 [facility] Comment on above: Order Comment: Comme nts: Day #1 Reason for Laboratory Test Result Comment: Canc elled via OM: Order edited - Discontinuing original order Performed By: #### L 100.0500 #### [facility] [address] [place], [address] WBC Normal 4.4-11.0 [facility] Comment on above: Order Comment: Comme nts: Day #1 Reason for Laboratory Test Result Comment: Canmarycarmen elled via OM: Order edited - Discontinuing original order Performed By: #### L 100.0500 #### [facility] [address] [place], [address] Urine opiates detectionOrder ed By: Meena Luciano on 08-13-2024 Opiates Ql (U) Negative [id number] [facility] Comment on above: Opiate test includes Codeine and Morphine only. Amphetamine detection with 1 000 ng/mL as cutoffOrdered By: Meena Luciano on 08-12-2024 Amphetamines Screen method >1000 ng/mL Ql (U) Negative < 200 ng/mL [facility] CBC W/Diff, Automatedon 06 Absolute Lymph 1.10 X10 3/uL Normal 0.83-4.51 [facility] Comment on above: Performed By: #### M 100.2200, L505.5000, L7000.1800 #### [facility] [address] [place], [address] Absolute Neut 19.3 X10 3/uL High 2.0-7.7 [facility] Comment on above: Performed By: #### M 100.2200, L505.5000, L7000.1800 #### [facility] [address] [place], [address] Basophils/100 WBC (Bld) 0.1 % Normal 0-1 [facility] Comment on above: Performed By: #### M 100.2200, L505.5000, L7000.1800 #### [facility] [address] [place], [address] Eosinophils/100 WBC (Bld) 0.1 % Normal 0-5 [facility] Comment on above: Performed By: #### M 100.2200, L505.5000, L7000.1800 #### [facility] [address] [place], [address] Erythrocyte distribution width (RBC) [Ratio] 12.7 % Normal 11.6-14.6 [facility] Comment on above: Performed By: #### M 100.2200, L505.5000, L7000.1800 #### [facility] [address] [place], [address] Hematocrit (Bld) [Volume fraction] 38.0 % Normal 37-47 [facility] Comment on above: Performed By: #### M 100.2200, L505.5000, L7000.1800 #### [facility] [address] [place], [address] Hemoglobin (Bld) [Mass/Vol] 13.8 g/dL Normal 12.0-15.0 [facility] Comment on above: Performed By: #### M 100.2200, L505.5000, L7000.1800 #### [facility] [address] [place], [address] IG% 0.600 Normal 0.0-0.9 [facility] Comment on above: Result Comment: IG% - Immature Granulocytes (promyelocytes, myelocytes and metamyelocytes) > 1% indicates that a LEFT SHIFT is Present. Performed By: #### M 100.2200, L505.5000, L7000.1800 #### [facility] [address] [place], [address] Lymphocytes/100 WBC (Bld) 5.1 % Low 19-41 [facility] Comment on above: Performed By: #### M 100.2200, L505.5000, L7000.1800 #### [facility] [address] [place], [address] MCH (RBC) [Entitic mass] 32.7 pg High 27.0-32.0 [facility] Comment on above: Performed By: #### M 100.2200, L505.5000, L7000.1800 #### [facility] [address] [place], [address] MCHC (RBC) [Mass/Vol] 36.3 g/dL High 32-36 [facility] Comment on above: Performed By: #### M 100.2200, L505.5000, L7000.1800 #### [facility] [address] [place], [address] MCV (RBC) [Entitic vol] 90.0 fL Normal 81-99 [facility] Comment on above: Performed By: #### M 100.2200, L505.5000, L7000.1800 #### [facility] [address] [place], [address] Monocytes/100 WBC (Bld) 4.9 % Normal 0-[address] [facility] Comment on above: Performed By: #### M 100.2200, L505.5000, L7000.1800 #### [facility] [address] [place], [address] Neutrophils/100 WBC (Bld) 89.2 % High 47-70 [facility] Comment on above: Performed By: #### M 100.2200, L505.5000, L7000.1800 #### [facility] [address] [place], [address] Nucleated RBC (Bld) [#/Vol] 0 10*3/uL Normal 0-5 [facility] Comment on above: Performed By: #### M 100.2200, L505.5000, L7000.1800 #### [facility] [address] [place], [address] Platelet mean volume (Bld) [Entitic vol] 11.2 fL Normal 6.2-12.0 [facility] Comment on above: Performed By: #### M 100.2200, L505.5000, L7000.1800 #### [facility] [address] [place], [address] Platelets (Bld) [#/Vol] 229 10*3/uL Normal 150-450 [facility] Comment on above: Performed By: #### M 100.2200, L505.5000, L7000.1800 #### [facility] [address] [place], [address] RBC (Bld) [#/Vol] 4.22 10*6/uL Normal 4.2-5.[address] [facility] Comment on above: Performed By: #### M 100.2200, L505.5000, L7000.1800 #### [facility] [address] [place], [address] RDW SD 41.6 fl Normal 35.1-43.9 [facility] Comment on above: Performed By: #### M 100.2200, L505.5000, L7000.1800 #### [facility] [address] [place], [address] WBC (Bld) [#/Vol] 21.6 10*3/uL High 4.4-11.[address] [facility] Comment on above: Performed By: #### M 100.2200, L505.5000, L7000.1800 #### [facility] [address] [place], [address] CBC-Complete Blood Cnt No Di ffon 08-12-2024 Erythrocyte distribution width (RBC) [Ratio] 12.8 % Normal 11.6-14.6 [facility] Comment on above: Order Comment: Comme nts: Day #1Reason for Laboratory Test Performed By: #### M 100.2200, L505.5000, L7000.1800 #### [facility] [address] [place], [address] Hematocrit (Bld) [Volume fraction] 31.8 % Low 37-47 [facility] Comment on above: Order Comment: Comme nts: Day #1Reason for Laboratory Test Performed By: #### M 100.2200, L505.5000, L7000.1800 #### [facility] [address] [place], [address] Hemoglobin (Bld) [Mass/Vol] 11.2 g/dL Low 12.0-15.0 [facility] Comment on above: Order Comment: Comme nts: Day #1Reason for Laboratory Test Performed By: #### M 100.2200, L505.5000, L7000.1800 #### [facility] [address] [place], [address] MCH (RBC) [Entitic mass] 32.4 pg High 27.0-32.0 [facility] Comment on above: Order Comment: Comme nts: Day #1Reason for Laboratory Test Performed By: #### M 100.2200, L505.5000, L7000.1800 #### [facility] [address] [place], [address] MCHC (RBC) [Mass/Vol] 35.2 g/dL Normal 32-36 [facility] Comment on above: Order Comment: Comme nts: Day #1Reason for Laboratory Test Performed By: #### M 100.2200, L505.5000, L7000.1800 #### [facility] [address] [place], [address] MCV (RBC) [Entitic vol] 91.9 fL Normal 81-99 [facility] Comment on above: Order Comment: Comme nts: Day #1Reason for Laboratory Test Performed By: #### M 100.2200, L505.5000, L7000.1800 #### [facility] [address] [place], [address] Platelet mean volume (Bld) [Entitic vol] 10.8 fL Normal 6.2-12.0 [facility] Comment on above: Order Comment: Comme nts: Day #1Reason for Laboratory Test Performed By: #### M 100.2200, L505.5000, L7000.1800 #### [facility] [address] [place], [address] Platelets (Bld) [#/Vol] 175 10*3/uL Normal 150-450 [facility] Comment on above: Order Comment: Comme nts: Day #1Reason for Laboratory Test Performed By: #### M 100.2200, L505.5000, L7000.1800 #### [facility] [address] [place], [address] RBC (Bld) [#/Vol] 3.46 10*6/uL Low 4.2-5.[address] [facility] Comment on above: Order Comment: Comme nts: Day #1Reason for Laboratory Test Performed By: #### M 100.2200, L505.5000, L7000.1800 #### [facility] [address] [place], [address] RDW SD 41.8 fl Normal 35.1-43.9 [facility] Comment on above: Order Comment: Comme nts: Day #1Reason for Laboratory Test Performed By: #### M 100.2200, L505.5000, L7000.1800 #### [facility] [address] [place], [address] WBC (Bld) [#/Vol] 20.2 10*3/uL High 4.4-11.[address] [facility] Comment on above: Order Comment: Comme nts: Day #1Reason for Laboratory Test Performed By: #### M 100.2200, L505.5000, L7000.1800 #### [facility] [address] [place], [address] Comprehensive Metabolic Prof ilon 08-12-2024 Albumin [Mass/Vol] 3.5 g/dL Normal 3.5-5.0 [facility] Comment on above: Performed By: #### M 100.2200, L505.5000, L7000.1800 #### [facility] [address] [place], [address] Albumin/Globulin [Mass ratio] 0.7 {ratio} Low 0.9-2.4 [facility] Comment on above: Performed By: #### M 100.2200, L505.5000, L7000.1800 #### [facility] [address] [place], [address] ALK PHOS 299 U/L High 35-104 [facility] Comment on above: Performed By: #### M 100.2200, L505.5000, L7000.1800 #### [facility] [address] [place], [address] ALT [Catalytic activity/Vol] 20 U/L Normal <=34 [facility] Comment on above: Performed By: #### M 100.2200, L505.5000, L7000.1800 #### [facility] [address] [place], [address] AST [Catalytic activity/Vol] 26 U/L Normal <=31 [facility] Comment on above: Performed By: #### M 100.2200, L505.5000, L7000.1800 #### [facility] [address] [place], [address] Bilirubin [Mass/Vol] 0.39 mg/dL Normal 0.00-1.30 [facility] Comment on above: Performed By: #### M 100.2200, L505.5000, L7000.1800 #### [facility] [address] [place], [address] BUN/CRE 20.6 RATIO High 10-20 [facility] Comment on above: Performed By: #### M 100.2200, L505.5000, L7000.1800 #### [facility] [address] [place], [address] Calcium [Mass/Vol] 8.9 mg/dL Normal 7.6-11.0 [facility] Comment on above: Performed By: #### M 100.2200, L505.5000, L7000.1800 #### [facility] [address] [place], [address] Chloride [Moles/Vol] 104 mmol/L Normal 98-108 [facility] Comment on above: Performed By: #### M 100.2200, L505.5000, L7000.1800 #### [facility] [address] [place], [address] CO2 [Moles/Vol] 13.9 mmol/L Low 21.0-32.0 [facility] Comment on above: Performed By: #### M 100.2200, L505.5000, L7000.1800 #### [facility] [address] [place], [address] Creatinine [Mass/Vol] 0.63 mg/dL Low 0.70-1.20 [facility] Comment on above: Performed By: #### M 100.2200, L505.5000, L7000.1800 #### [facility] [address] [place], [address] ECRCL 131.80 ml/min Normal 50-250 [facility] Comment on above: Performed By: #### M 100.2200, L505.5000, L7000.1800 #### [facility] [address] [place], [address] GAP 16 High 5-15 [facility] Comment on above: Performed By: #### M 100.2200, L505.5000, L7000.1800 #### [facility] [address] [place], [address] GFR/1.73 sq M.predicted among non-blacks MDRD (S/P/Bld) [Vol rate/Area] 120 mL/min/{1.73_m2} Normal >60 [facility] Comment on above: Result Comment: mL/m in/1.73m2 CKD-EPI Creatinine Equation (2020) Performed By: #### M 100.2200, L505.5000, L7000.1800 #### [facility] [address] [place], [address] Globulin (S) [Mass/Vol] 4.7 g/dL High 2.2-4.2 [facility] Comment on above: Performed By: #### M 100.2200, L505.5000, L7000.1800 #### [facility] [address] [place], [address] Glucose [Mass/Vol] 115 mg/dL High 70-99 [facility] Comment on above: Performed By: #### M 100.2200, L505.5000, L7000.1800 #### [facility] [address] [place], [address] Potassium [Moles/Vol] 3.7 mmol/L Normal 3.3-5.1 [facility] Comment on above: Performed By: #### M 100.2200, L505.5000, L7000.1800 #### [facility] [address] [place], [address] Sodium [Moles/Vol] 134 mmol/L Normal 133-145 [facility] Comment on above: Performed By: #### M 100.2200, L505.5000, L7000.1800 #### [facility] [address] [place], [address] T PROT 8.2 g/dL Normal 5.9-8.4 [facility] Comment on above: Performed By: #### M 100.2200, L505.5000, L7000.1800 #### [facility] [address] [place], [address] Urea nitrogen [Mass/Vol] 13 mg/dL Normal 4-19 [facility] Comment on above: Performed By: #### M 100.2200, L505.5000, L7000.1800 #### [facility] [address] [place], [address] Discharge Instructionon Discharge Instruction [facility] Medical Records Department [address] [address] Instructions for Home/Discharge Instructions 08/12/24 0118 MR#: [id number] Acct: [id number] Name: DAVID POST Rep #: [id number] : 1990 33 From: Meena Luciano MD PCP: Care Physician,No Primary Status:ADM IN Discharge Instructions Diet Discharge Diet: No restrictions DC O2, CPAP, BIPAP needs Home O2 Discharge instructions: No Dressing / Incision Discharge Activity: May Not Drive (for 2 weeks or while taking narcotic pain medications.), May Shower and May Take a Tub Bath (in 7 days) May shower in (days): 0 May resume sexual activity in: 4-6 weeks Weight Bearing Status: Full weight bearing Lifting Restrictions: 20 pounds Dressing / Incision Call your doctor if your incision/area has: Continuous Slow Oozing, Sudden Increased Bleeding, Increased Pain/ Swelling, Increased Redness and Foul Smelling Discharge Call your doctor if you observe: Fever of 101 or Higher and Using more than 1 pad per hour (for 2 hours) Suture Line Care: Avoid Pulling/Pushing and Avoid Pinching/Bending Cleanse incision/area with: Soap Water and Keep Dressing Clean Dry Follow Up Care Please Follow Up With: Meena Luciano MD When: Call [phone] to make an appointment for an incision check in 1-2 weeks. Test Results: Test results from this visit will be discussed in further detail at your follow-up appointment, if applicable. Discharge Plan Admission Admit Date/Time: 08/11/24 23:33 Attending Provider: Meena Luciano Primary Care Provider: Isidro Wilhelm,Mahsa Primary Discharge Orders/Prescriptions Prescriptions: New oxycodone-acetaminophen [Percocet] 5-325 mg tablet 1 tab PO Q4H PRN (Reason: pain) 7 Days Qty: 20 0RF naproxen 500 mg tablet 500 mg PO BID PRN PRN (Reason: Pain) Qty: 30 1RF No Action PNV-DHA 27 mg iron-1 mg -300 mg capsule 1 cap PO DAILY Referrals / Follow Up: Care Physician,No Primary [Primary Care Provider] - Disposition Disposition (needs filled in before D/C Order can be placed): Home, Self Care 08/12/24 0120 Meena Luciano MD CC: No Primary Care Physician Signed Normal [facility] Erythrocyte distribution wid th ratioOrdered By: Meena Luciano on 08-12-2024 Erythrocyte distribution width (RBC) [Ratio] 12.8 % 11.6-14.6 [facility] Erythrocyte distribution wid th standard deviationOrdered By: Meena Luciano on 08-12-2024 Erythrocyte distribution width (RBC) [Ratio] 41.8 fl 35.1-43.9 [facility] Fibrinogenon 08-12-2024 FIBRINOGEN 448 mg/dl High 203-444 [facility] Comment on above: Performed By: #### L 505.5000 #### [facility] [address] [place], [address] H AND P Exam - OB/GYNon H&P Exam - PLASTERER SPOT [facility] Medical Records Department [address] [place] [address] H P Exam - PLASTERER SPOT 08/12/24 0101 MR#: [id number] Acct: [id number] Name: DAVID POST Rep #: [id number] : 1990 33 From: Meena Luciano MD PCP: Isidro Wilhelm,No Primary Status:ADM IN Location: [id number] HPI - General General Date of Admission: 08/11/24 HPI Narrative DAVID POST, is a 33 F who presents for early rule out labor for a TOLAC, was initially 3-4 cm, and during her ruling out of labor she had a bradycardic episode and she was rechecked and found to be 5 cm with a loss of station, so the decision was made to proceed with a repeat for a suspected uterine rupture, patient declined a trial of labor. Maternal Data Information MANUEL Calculator Estimated Delivery Date Method Current WG Current Estimate 08/21/24 Ultrasound #1 38w 5d Other Estimates 07/04/24 LMP (Uncertain) 45w 4d 08/18/24 Ultrasound #2 39w 1d PFSH PFSH Medical History Uterine anomaly Trauma Anxiety History of asthma History of back pain history of knee pain History of anemia Home Medications ???Medication ???Instructions ???Recorded ???Last Taken ???Type multivitamin no.47-iron fum 27 1 cap PO DAILY 09/02/22 04/27/23 History mg-folate no.1 1 mg-dha 300 mg capsule (PNV-DHA) Allergy/AdvReac Type Severity Reaction Status Date / Time bee venom protein (honey Allergy Hives Verified 08/11/24 20:29 bee) (bee sting) Social History adopted: Yes household members: significant other, children and other details: JOSELYN Luciano (has two kids Ryan Khan lives with his mom) [facility] housing: house number of children: 2 current occupational status: other current occupation: [employer] current occupational exposures/hazards: No pets and animals: Yes (not managing litter box) pets and animals: cat(s) leisure activities: exercise history of recent travel: No sexually active: Yes Smoking Status: Current every day smoker tobacco type: cigarettes Tobacco: How many years used: 8 quit status: quit date established alcohol intake: never substance use type: marijuana and other details: last Oct 2022, counseling provided. Pt agreeable to drug testing well-balanced diet: daily or most days eating out: rarely or never during the past year weight has: decreased > 10 lbs what type of physical activity do you participate in: walking frequency: 1-2 times per week yesenia/taoist: None seatbelt use: always do you feel safe at home: Yes additional social history: [facility] [employer] History 2 Elective abortions Hx Para 1 Spontaneous abortions Hx # Term Pregnancies 1 Ectopic pregnancies Hx # Pregnancies Multiple births # of living children 1 Past Pregnancies Del. Date Name GA/Weeks Outcome Route Bth Weight Infant Gen Labor Lgth Anesthesia Del Jessica Provider FOB 04/29/23 Jason 39 live - full term 6lbs 12oz Male [facility] Mustapha Luciano Delivery Date: 04/29/23 Last Updated by: Dee Dee Dejesus [facility] nrfhts Visit Details Expected Delivery Route/Plan R C/S with JV Plans Covid status: [] Flu vaccine: [] Tdap vaccine: discussed Rhogam: [] LARC form signed: [] Problem list reviewed and updated with the most current plan of care details and appropriate orders placed. Relevant counseling for the gestational age provided. Continue routine care and follow up unless otherwise noted in visit notes/problem list details OB Flowsheet Initial Weight: 181 lb Date -???-???-???-???-???-?? ?-???-???-???-???-???-? ??- EGA Weight BP Urine Prot -???-???-???-???-???-?? ?-???-???-???-???-???-? ??- Glucose FHR FuHt Pres Dilation -???-???-???-???-???-?? ?-???-???-???-???-???-? ??- Effaced St Visit Note 12/21/23 -???-???-???-???-???-?? ?-???-???-???-???-???-? ??- 5w 1d 181 lb 8 oz (+8 oz) 110/70 -???-???-???-???-???-?? ?-???-???-???-???-???-? ??- -???-???-???-???-???-?? ?-???-???-???-???-???-? ??- KW- CRL not cons with dates. SM assisted with scan. measuring 5.1 weeks. plan for hcgs and repeat US next week. 02/23/24 -???-???-???-???-???-?? ?-???-???-???-???-???-? ??- 14w 2d 173 lb (-8 lb) 119/72 Negative -???-???-???-???-???-?? ?-???-???-???-???-???-? ??- Negative 147 -???-???-???-???-???-?? ?-???-???-???-???-???-? ??- JV- pt was a bsent for a weeks due to insurance loss. She states that they have insurance now . new ob lab and NIPT ordered. unsure about rpt section vs trial of labor. 03/22/24 -???-???-???-???-???-?? ?-???-???-???-???-???-? ??- 18w 2d 175 lb (-6 lb) 108/67 Negative -???-???-???-???-???-?? ?-???-???-???-???-???-? ??- (more content not included)... Normal [facility] Hematocrit Auto (Bld) [Volum e fraction]Ordered By: Meena Luciano on 08-12-2024 Hematocrit (Bld) [Volume fraction] 31.8 % Low 37-47 [facility] Hemoglobin measurementOrdere d By: Meena Luciano on 08-12-2024 Hemoglobin (Bld) [Mass/Vol] 11.2 g/dL Low 12.0-15.0 [facility] MCV (mean corpuscular volume ) determinationOrdered By: Meena Luciano on 08-12-2024 MCV (RBC) [Entitic vol] 91.9 fL 81-99 [facility] Mean corpuscular hemoglobin (MCH) determinationOrdered By: Meena Luciano on 08-12-2024 MCH (RBC) [Entitic mass] 32.4 pg High 27.0-32.0 [facility] Mean corpuscular hemoglobin concentration (MCHC) determinationOrdered By: Meena Luciano on 08-12-2024 MCHC (RBC) [Mass/Vol] 35.2 g/dL 32-36 [facility] Mean platelet volume determi nationOrdered By: Meena Luciano on 08-12-2024 Platelet mean volume (Bld) [Entitic vol] 10.8 fL 6.2-12.0 [facility] No Panel InformationOrdered By: Meena Luciano on 08-12-2024 Urine Buprenorphine Qualitative Negative < 200 ng/mL [facility] Urine Oxycodone Screen Negative < 100 ng/mL [facility] Operative Reporton Operative Report [facility] Medical Records Department [address] [place] [address] Operative Report 08/12/24 0109 MR#: [id number] Acct: [id number] Name: DAVID POST Rep #: [id number] : 1990 33 From: Meena Luciano MD PCP: Care Physician,No Primary Status:ADM IN Location: [place] [address] Assessment Plan (1) delivery delivered: COMMENT: RLTCS uterine rupture girl janusz 38 SM (2) Uterine rupture: (3) Positive GBS test: COMMENT: treat if in labor. (4) Obesity affecting : QUALIFIERS: Trimester: second trimester Obesity type affecting : unspecified obesity Qualified Code(s): O99.212 - Obesity complicating , second trimester COMMENT: A1C (5) Supervision of high-risk : QUALIFIERS: Trimester: second trimester Qualified Code(s): O09.92 - Supervision of high risk , unspecified, second trimester COMMENT: PRR, , MANUEL 07/04/24, girl Janusz PC JOSELYN Gomez (6) : QUALIFIERS: Weeks of gestation: 38 weeks Qualified Code(s): Z3A.38 - 38 weeks gestation of COMMENT: NIPT with gender, declines carrier. nl anatomy (7) Borderline personality disorder: COMMENT: sees counselor (8) Uterine anomaly: COMMENT: tilted (9) ASCUS with positive high 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al: COMMENT: [place] done repeat pap 08/04 (10) Marijuana smoker: COMMENT: occasional for anxiety, counseling provided. last Oct 2023 (11) Depression: QUALIFIERS: Depression Type: unspecified Qualified Code(s): F32.A - Depression, unspecified COMMENT: erna okeefe counselor Maternal Data Information MANUEL Calculator Estimated Delivery Date Method Current WG Current Estimate 08/21/24 Ultrasound #1 38w 5d Other Estimates 07/04/24 LMP (Uncertain) 45w 4d 08/18/24 Ultrasound #2 39w 1d Operative Report (OB) Details Procedure Type: low transverse Date of Procedure: 08/12/24 Procedure Start Time: 00:00 Procedure Stop Time: 00:47 Pre-Operative Diagnosis: Other Other Pre-Operative diagnosis: see a/p comments Post-Operative Diagnosis: Same as Pre-operative diagnosis Classification: Stat Type of Anesthesia: General Antibiotic Given: Ancef 2 grams IV x1 Drain: De Leon to straight drain Estimated Blood Loss: 600 Fluids Replaced: crystalloid Findings Description of surgery: De Leon catheter was placed. The patient was placed in the dorsal supine position with leftward tilt. Patient was prepped and draped in the normal sterile fashion. General anesthesia was going to be administered however the IV access was lost and had to be reestablished. After patient was placed under general anesthesia after IV was secured, Pfannenstiel skin incision was made with the scalpel and carried through to the underlying layer of fascia with the scalpel. Fascia was nicked in the midline and the incision extended laterally. The rectus bellies were dissected off superiorly and inferiorly with out complication both sharply and bluntly. The peritoneum was entered digitally. The incision was stretched and the lower uterine segment was inspected and noted to be very thin, upon lightly touching it spontaneously burst open confirming uterine rupture the infant's head was delivered atraumatically followed by the anterior and posterior shoulders without complication the rest of the delivered. The cord was clamped and cut and the infant was handed off to awaiting nurse. The placenta was delivered spontaneously immediately following and was noted to be intact and have a three-vessel cord. The uterus was exteriorized cleared of all clots and debris, and the incision was closed in a single layer closure using #1 Monocryl. The ovaries and fallopian tubes were noted to be within normal limits. The uterus was returned to the maternal abdomen and gutters were cleared of all clots and debris. The peritoneum was closed with 3- 0 Monocryl in a running fashion. Galisy-vf-vkswc suture was used on the rectus muscle and 2 areas to obtain hemostasis and Hemoblast also used. Gloves were changed prior to fascial closure. Fascia was closed with 0 PDS in a running fashion. Subcutaneous tissue was copiously irrigated and the skin was closed with 3-0 Monocryl in a subcuticular fashion. Mepilex dressing was applied without complication. Patient was taken to recovery in stable condition. It was discussed with the patient that based on the clinical information obtained during this encounter, combined with her history, at this time I would recommend cesareans for future deliveries if further pregnancies are desired and delivery at 36 weeks. Surgical findings: nl uterus tubes, uterine rupture Amniotic Membrane Rupture Type: Artificial Amniotic Fluid Description: Clear Specimen collected: Yes Description of specimen(s) removed: Placenta Cord Vessel Description: 3 Vessels D (more content not included)... Normal [facility] Partial Thromboplast Timeon 08-12-2024 aPTT Coag (Bld) [Time] 29.6 s Normal 24.1-36.2 [facility] Comment on above: Performed By: #### L 505.5000 #### [facility] [address], [place], [address] Platelet countOrdered By: Janell Luciano on 08-12-2024 Platelets (Bld) [#/Vol] 175 10*3/uL 150-450 [facility] Prothrombin Time w/INRon INR Coag (PPP) [Relative time] 0.9 {INR} Normal [facility] Comment on above: Performed By: #### L 505.5000 #### [facility] [address] [place], [address] PT Coag (PPP) [Time] 11.8 s Normal 11.7-14.9 [facility] Comment on above: Performed By: #### L 505.5000 #### [facility] [address] [place], [address] Quantitative urine opiates m easurementOrdered By: Meena Luciano on 08-12-2024 Opiates Ql (U) Positive < 300 ng/mL [facility] Comment on above: If confirmation test ing is needed, a separate order will be required to send out testing to the reference laboratory. RBC Auto (Bld) [#/Vol]Ordere d By: Meena Luciano on 08-12-2024 RBC (Bld) [#/Vol] 3.46 10*6/uL Low 4.2-5.[address] [facility] Screening urine fentanyl paulino surementOrdered By: Meena Luciano on 08-12-2024 fentaNYL Screen Ql (U) Negative [facility] Syphilis Antibodieson 2024 Syphilis Abs Non-Reactive Normal Nonreactive [facility] Comment on above: Performed By: #### M 100.2200, L505.5000, L7000.1800 #### [facility] [address] [place], [address] Type AND Screenon 08-12-2024 Ab SCREEN GEL PENDING Normal [facility] Comment on above: Order Comment: UNK Performed By: #### M 100.2200, L505.5000, L7000.1800 #### [facility] [address] [place], [address] ABO and Rh group Nom (Bld) Blood group O Rh(D) positive Normal [facility] Comment on above: Order Comment: UNK Performed By: #### M 100.2200, L505.5000, L7000.1800 #### [facility] [address] [place], [address] Urine Drug Screen (VISTA)on 08-12-2024 AMPHETAMINES Negative Normal <1000 ng/mL [facility] Comment on above: Order Comment: Marij uana Performed By: #### L 505.5000 #### [facility] [address] [place], [address] BARBITIURATES Negative Normal < 200 ng/mL [facility] Comment on above: Order Comment: Marij uana Performed By: #### L 505.5000 #### [facility] [address] [place], [address] BENZODIAZIPINE Negative Normal < 200 ng/mL [facility] Comment on above: Order Comment: Marij uana Performed By: #### L 505.5000 #### [facility] [address] [place], [address] BUP Ur Drug Scr Negative Normal < 200 ng/mL [facility] Comment on above: Order Comment: Marij uana Performed By: #### L 505.5000 #### [facility] [address] [place], [address] COCAINE Negative Normal < 300 ng/mL [facility] Comment on above: Order Comment: Marij uana Performed By: #### L 505.5000 #### [facility] [address] [place], [address] Fentanyl Negative Normal [facility] Comment on above: Order Comment: Marij uana Performed By: #### L 505.5000 #### [facility] [address] [facility] [address] METHADONE Negative Normal < 300 ng/mL [facility] Comment on above: Order Comment: Marij uana Performed By: #### L 505.5000 #### [facility] [address] [place], [address] OPIATES Positive Normal < 300 ng/mL [facility] Comment on above: Order Comment: Marij uana Result Comment: If c onfirmation testing is needed, a separate order will be required to send out testing to the reference laboratory. Performed By: #### L 505.5000 #### [facility] [address] [place], [address] OXYCODONE Negative Normal < 100 ng/mL [facility] Comment on above: Order Comment: Vinh uana Performed By: #### L 505.5000 #### [facility] [address] [place], [address] PCP Negative Normal < 25 ng/mL [facility] Comment on above: Order Comment: Marij uana Performed By: #### L 505.5000 #### [facility] [address] [place], [address] THC Positive Normal < 50 ng/mL [facility] Comment on above: Order Comment: Vinh uana Result Comment: If c onfirmation testing is needed, a separate order will be required to send out testing to the reference laboratory. Performed By: #### L 505.5000 #### [facility] [address] [place], [address] Urine benzodiazepine levelOr dered By: Meena Luciano on 08-12-2024 Benzodiazepines Ql (U) Negative < 200 ng/mL [facility] Urine cocaine levelOrdered B y: Meena Luciano on 08-12-2024 Cocaine Ql (U) Negative < 300 ng/mL [facility] Urine ydlhl-5-vcaudwgwbbsuqf abinol (THC) measurementOrdered By: Meena Luciano on 08-12-2024 Cannabinoids Screen Ql (U) Positive < 50 ng/mL [facility] Comment on above: If confirmation test ing is needed, a separate order will be required to send out testing to the reference laboratory. Urine phencyclidine (PCP) de tectionOrdered By: Meena Luciano on 08-12-2024 Phencyclidine Ql (U) Negative < 25 ng/mL [facility] White blood cell (WBC) count Ordered By: Meena Luciano on 08-12-2024 WBC (Bld) [#/Vol] 20.2 10*3/uL High 4.4-11.[address] [facility] Absolute lymphocyte countOrd ered By: Meena Luciano on 08-11-2024 Lymphocytes Auto (Unsp spec) [#/Vol] 1.10 10*3/uL 0.83-4.51 [facility] Absolute neutrophil countOrd ered By: Meena Luciano on 08-11-2024 Neutrophils (Bld) [#/Vol] 19.3 10*3/uL High 2.0-7.7 [facility] Activated partial thrombopla stin time (aPTT) in platelet poor plasma by coagulation aOrdered By: Meena Luciano on 08-11-2024 aPTT Coag (PPP) [Time] 29.6 s 24.1-36.2 [facility] Anion gap in Serum or Plasma Ordered By: Meena Luciano on 08-11-2024 Anion gap [Moles/Vol] 16 mmol/L High 5-15 [facility] Automated lymphocyte count a s percentage of total leukocytesOrdered By: Meena Luciano on 08-11-2024 Lymphocytes/100 WBC Auto (Unsp spec) 5.1 % Low 19-41 [facility] BUN/creatinine ratioOrdered By: Meena Luciano on 08-11-2024 Urea nitrogen/Creatinine [Mass ratio] 20.6 mg/mg High 10-20 [facility] Basophil percentageOrdered B y: Meena Luciano on 08-11-2024 Basophils/100 WBC (Bld) 0.1 % 0-1 [facility] Bilirubin, totalOrdered By: Meena Luciano on 08-11-2024 Bilirubin [Mass/Vol] 0.39 mg/dL 0.00-1.30 [facility] Carbon dioxide, total [Moles /volume] in Central venous bloodOrdered By: Meena Luciano on 08-11-2024 CO2 [Moles/Vol] 13.9 mmol/L Low 21.0-32.0 [facility] Chloride assayOrdered By: Janell Luciano on 08-11-2024 Chloride [Moles/Vol] 104 mmol/L 98-108 [facility] Eosinophil percentageOrdered By: Meena Luciano on 08-11-2024 Eosinophils/100 WBC (Bld) 0.1 % 0-5 [facility] Glomerular filtration rate ( GFR) estimation/1.73 sq m using serum, plasma, or whole bOrdered By: Meena Luciano on 08-11-2024 GFR/1.73 sq M.predicted among non-blacks MDRD (S/P/Bld) [Vol rate/Area] 120 mL/min/{1.73_m2} >60 [facility] Comment on above: mL/min/1.73m2 CKD-EP I Creatinine Equation (2020) Immature granulocytes/100 WB C Auto (Bld)Ordered By: Meena Luciano on 08-11-2024 Immature granulocytes/100 WBC (Bld) 0.600 % 0.0-0.9 [facility] Comment on above: IG% - Immature Granu locytes (promyelocytes, myelocytes and metamyelocytes) > 1% indicates that a LEFT SHIFT is Present. International normalized rat io (INR) calculationOrdered By: Meena Luciano on 08-11-2024 INR Coag (Bld) [Relative time] 0.9 {INR} [facility] Laboratory - Chemistry and C hemistry - challengeOrdered By: Meena Luciano on 08-11-2024 AST [Catalytic activity/Vol] 26 U/L <32 [facility] Monocyte percentageOrdered B y: Meena Luciano on 08-11-2024 Monocytes/100 WBC (Bld) 4.9 % 0-10 [facility] Neutrophil percentageOrdered By: Meena Luciano on 08-11-2024 Neutrophils/100 WBC (Bld) 89.2 % High 47-70 [facility] Nucleated red blood cell per centageOrdered By: Meena Luciano on 08-11-2024 Nucleated RBC/100 WBC (Bld) [Ratio] 0 % 0-5 [facility] Potassium measurement (mass/ volume)Ordered By: Meena Luciano on 08-11-2024 Potassium (Unsp spec) [Mass/Vol] 3.7 mmol/L 3.3-5.1 [facility] Prothrombin timeOrdered By: Meena Luciano on 08-11-2024 PT Coag (PPP) [Time] 11.8 s 11.7-14.9 [facility] Serum creatinine measurement (mass/volume)Ordered By: Meena Luciano on 08-11-2024 Creatinine [Mass/Vol] 0.63 mg/dL Low 0.70-1.20 [facility] Serum globulin measurementOr dered By: Meena Luciano on 08-11-2024 Globulin (S) [Mass/Vol] 4.7 g/dL High 2.2-4.2 [facility] Serum glucose measurement (m ass/volume)Ordered By: Meena Luciano on 08-11-2024 Glucose [Mass/Vol] 115 mg/dL High 70-99 [facility] Serum or plasma alanine drummond otransferase (ALT) measurementOrdered By: Meena Luciano on 08-11-2024 ALT [Catalytic activity/Vol] 20 U/L <35 [facility] Serum or plasma albumin kamilah urement (mass/volume)Ordered By: Meena Luciano on 08-11-2024 Albumin [Mass/Vol] 3.5 g/dL 3.5-5.0 [facility] Serum or plasma albumin/glob ulin mass ratioOrdered By: Meena Luciano on 08-11-2024 Albumin/Globulin [Mass ratio] 0.7 {ratio} Low 0.9-2.4 [facility] Serum or plasma alkaline kori sphatase measurementOrdered By: Meena Luciano on 08-11-2024 ALP [Catalytic activity/Vol] 299 U/L High 35-104 [facility] Serum or plasma calcium kamilah urement (mass/volume)Ordered By: Meena Luciano on 08-11-2024 Calcium [Mass/Vol] 8.9 mg/dL 7.6-11.0 [facility] Serum or plasma urea nitroge n measurement (mass/volume)Ordered By: Meena Luciano on 08-11-2024 Urea nitrogen [Mass/Vol] 13 mg/dL 4-19 [facility] Sodium levelOrdered By: Dani Luciano on 08-11-2024 Sodium [Moles/Vol] 134 mmol/L 133-145 [facility] Total proteinOrdered By: Steve Luciano on 08-11-2024 Protein [Mass/Vol] 8.2 g/dL 5.9-8.4 [facility] Laboratory - Chemistry and C hemistry - challengeOrdered By: Anna Marin on 08-08-2024 Glucose Ql (U) Negative [facility] Laboratory - UrinalysisOrder ed By: Anna Marin on 08-08-2024 Protein Ql (U) Negative [facility] Otolaryngologist Office Visit Reporton 08-08-2024 Otolaryngologist Office Visit Report [facility] [address], [address] [place] [address] OFFICE VISIT Date of Service: 08/08/24 MR#: [id number] Acct: [id number] Name: DAVID POST Rep #: [id number] : 1990 Provider: REECE Donis ams Age/Sex: 33/F [place] [facility] [place]: Signed Intake Vital Signs 07/12/24 10:04 08/02/24 11:21 08/08/24 09:09 Height 5 ft 5 in 5 ft 5 in 5 ft 5 in Weight: 194 lb 4 oz BMI 32.3 BP 131/78 H Intake Visit Reasons: 38 wk ob Chief Complaint: 38wk OB Documentation Clerk Required: No Is patient in pain?: No Allergies bee venom protein (honey bee) (bee sting) Allergy (Verified 08/08/24 09:08) Hives Medications ???Medication ???Instructions ???Recorded ???Confirmed ???Type multivitamin no.47-iron fum 27 1 cap PO DAILY 09/02/22 08/08/24 History mg-folate no.1 1 mg-dha 300 mg capsule (PNV-DHA) ferrous gluconate 240 mg (27 mg 240 mg PO QDAY 12/21/23 08/08/24 H istory iron) tablet (Ferate) nicotine 7 mg/24 hr daily 1 patch transdermal Q24H #14 ea 08/08/24 Rx transdermal patch buspirone 10 mg tablet 5 mg (1/2 x 10 mg) PO BID #60 tabs 05/13/24 08/08/24 Rx clobetasol 0.05 % topical cream topical BID 05/13/24 08/08/24 Hist ory Last Menstrual Period: 09/28/23 : No PFSH PFSH Medical History Uterine anomaly Trauma Anxiety History of asthma History of back pain history of knee pain History of anemia Social History adopted: Yes household members: significant other, children and other details: JOSELYN Luciano (has two kids Ryan Khan lives with his mom) [facility] housing: house number of children: 2 current occupational status: other current occupation: [employer] current occupational exposures/hazards: No pets and animals: Yes (not managing litter box) pets and animals: cat(s) leisure activities: exercise history of recent travel: No sexually active: Yes Smoking Status: Former smoker quit date: 03/13/22 Tobacco: How many years used: 8 quit status: quit date established alcohol intake: never substance use type: marijuana and other details: last Oct 2022, counseling provided. Pt agreeable to drug testing well-balanced diet: daily or most days eating out: rarely or never during the past year weight has: decreased > 10 lbs what type of physical activity do you participate in: walking frequency: 1-2 times per week yesenia/taoist: None seatbelt use: always do you feel safe at home: Yes additional social history: [facility] History 2 Elective abortions Hx Para 1 Spontaneous abortions Hx # Term Pregnancies 1 Ectopic pregnancies Hx # Pregnancies Multiple births # of living children 1 Past Pregnancies Del. Date Name GA/Weeks Outcome Route Bth Weight Gen Labor Lgth Anesthesia Del Locatn Provider FOB 04/29/23 Jason 39 live - full term 6lbs 12oz Male [facility] Mustapha Luciano Delivery Date: 04/29/23 Last Updated by: Dee Dee eDjesus [facility] nrfhts HPI 38 wk ob Details: DAVID POST is a 33 year old who presents for routine OB visit. OB Visit MANUEL Calculator Estimated Delivery Date Method Current WG Current Estimate 08/21/24 Ultrasound #1 38w 1d Other Estimates 07/04/24 LMP (Uncertain) 45w 0d 08/18/24 Ultrasound #2 38w 4d Expected Delivery Route/Plan R C/S with JV Specific Issue/Plans Covid status: [] Flu vaccine: [] Tdap vaccine: discussed Rhogam: [] LARC form signed: [] Problem list reviewed and updated with the most current plan of care details and appropriate orders placed. Relevant counseling for the gestational age provided. Continue routine care and follow up unless otherwise noted in visit notes/problem list details Initial Weight: 181 lb Date -???-???-???-???-???-?? ?-???-???-???-???-???-? ??- EGA Weight BP Urine Prot -???-???-???-???-???-?? ?-???-???-???-???-???-? ??- Glucose FHR FuHt Pres Dilation -???-???-???-???-???-?? ?-???-???-???-???-???-? ??- Effaced St Visit Note 12/21/23 -???-???-???-???-???-?? ?-???-???-???-???-???-? ??- 5w 1d 181 lb 8 oz (+8 oz) 110/70 -???-???-???-???-???-?? ?-???-???-???-???-???-? ??- -???-???-???-???-???-?? ?-???-???-???-???-???-? ??- KW- CRL not cons with dates. SM assisted with scan. measuring 5.1 weeks. plan for hcgs and repeat US next week. 02/23/24 -???-???-???-???-???-?? ?-???-???-???-???-???-? ??- 14w 2d 173 lb (-8 lb) 119/72 Negative -???-???-???-???-???-?? ?-???-???-???-???-???-? ??- Negative 147 -???-???-???-???-???-?? ?-???-???-???-???-???-? ??- JV- pt was a bsent for a weeks due to insurance loss. She states th (more content not included)... Normal [facility] Laboratory - Chemistry and C hemistry - challengeOrdered By: Anna Marin on 08-02-2024 Glucose Ql (U) Negative [facility] Laboratory - UrinalysisOrder ed By: Anna Marin on 08-02-2024 Protein Ql (U) Negative [facility] Otolaryngologist Office Visit Reporton 08-02-2024 Otolaryngologist Office Visit Report [facility] [address], [address] [place] [address] OFFICE VISIT Date of Service: 08/02/24 MR#: [id number] Acct: [id number] Name: DAVID POST Rep #: [id number] : 1990 Provider: REECE Donis ams Age/Sex: 33/F Location: [facility] [place] Status: Signed Intake Vital Signs 07/12/24 10:04 07/22/24 10:21 08/02/24 11:21 Height 5 ft 5 in 5 ft 5 in 5 ft 5 in Weight: 192 lb 4 oz BMI 32.0 BP 129/81 H Intake Visit Reasons: 37 wk ob Chief Complaint: 37wk OB Documentation Clerk Required: No Is patient in pain?: No Allergies bee venom protein (honey bee) (bee sting) Allergy (Verified 08/02/24 11:19) Hives Medications ???Medication ???Instructions ???Recorded ???Confirmed ???Type multivitamin no.47-iron fum 27 1 cap PO DAILY 09/02/22 08/02/24 History mg-folate no.1 1 mg-dha 300 mg capsule (PNV-DHA) ferrous gluconate 240 mg (27 mg 240 mg PO QDAY 12/21/23 08/02/24 H istory iron) tablet (Ferate) nicotine 7 mg/24 hr daily 1 patch transdermal Q24H #14 ea 08/02/24 Rx transdermal patch buspirone 10 mg tablet 5 mg (1/2 x 10 mg) PO BID #60 tabs 05/13/24 08/02/24 Rx clobetasol 0.05 % topical cream topical BID 05/13/24 08/02/24 Hist ory Last Menstrual Period: 09/28/23 : No PFSH PFSH Medical History Uterine anomaly Trauma Anxiety History of asthma History of back pain history of knee pain History of anemia Social History adopted: Yes household members: significant other, children and other details: JOSELYN Luciano (has two kids Ryan Khan lives with his mom) [facility] housing: house number of children: 2 current occupational status: other current occupation: [email or web address] current occupational exposures/hazards: No pets and animals: Yes (not managing litter box) pets and animals: cat(s) leisure activities: exercise history of recent travel: No sexually active: Yes Smoking Status: Former smoker quit date: 03/13/22 Tobacco: How many years used: 8 quit status: quit date established alcohol intake: never substance use type: marijuana and other details: last Oct 2022, counseling provided. Pt agreeable to drug testing well-balanced diet: daily or most days eating out: rarely or never during the past year weight has: decreased > 10 lbs what type of physical activity do you participate in: walking frequency: 1-2 times per week yesenia/taoist: None seatbelt use: always do you feel safe at home: Yes additional social history: [facility] History 2 Elective abortions Hx Para 1 Spontaneous abortions Hx # Term Pregnancies 1 Ectopic pregnancies Hx # Pregnancies Multiple births # of living children 1 Past Pregnancies Del. Date Name GA/Weeks Outcome Route Bth Weight Gen Labor Lgth Anesthesia Del Locatn Provider FOB 04/29/23 Jason 39 live - full term 6lbs 12oz Male [facility] Mustapha Luciano Delivery Date: 04/29/23 Last Updated by: Dee Dee Dejesus [facility] nrfhts HPI 37 wk ob Details: DAVID POST is a 33 year old who presents for routine OB visit. OB Visit MANUEL Calculator Estimated Delivery Date Method Current WG Current Estimate 08/21/24 Ultrasound #1 37w 2d Other Estimates 07/04/24 LMP (Uncertain) 44w 1d 08/18/24 Ultrasound #2 37w 5d Expected Delivery Route/Plan R C/S with JV Specific Issue/Plans Covid status: [] Flu vaccine: [] Tdap vaccine: discussed Rhogam: [] LARC form signed: [] Problem list reviewed and updated with the most current plan of care details and appropriate orders placed. Relevant counseling for the gestational age provided. Continue routine care and follow up unless otherwise noted in visit notes/problem list details Initial Weight: 181 lb Date -???-???-???-???-???-?? ?-???-???-???-???-???-? ??- EGA Weight BP Urine Prot -???-???-???-???-???-?? ?-???-???-???-???-???-? ??- Glucose FHR FuHt Pres Dilation -???-???-???-???-???-?? ?-???-???-???-???-???-? ??- Effaced St Visit Note 12/21/23 -???-???-???-???-???-?? ?-???-???-???-???-???-? ??- 5w 1d 181 lb 8 oz (+8 oz) 110/70 -???-???-???-???-???-?? ?-???-???-???-???-???-? ??- -???-???-???-???-???-?? ?-???-???-???-???-???-? ??- KW- CRL not cons with dates. SM assisted with scan. measuring 5.1 weeks. plan for hcgs and repeat US next week. 02/23/24 -???-???-???-???-???-?? ?-???-???-???-???-???-? ??- 14w 2d 173 lb (-8 lb) 119/72 Negative -???-???-???-???-???-?? ?-???-???-???-???-???-? ??- Negative 147 -???-???-???-???-???-?? ?-???-???-???-???-???-? ??- JV- pt was a bsent for a weeks due to insurance loss. She states th (more content not included)... Normal [facility] Laboratory - Chemistry and C hemistry - challengeOrdered By: Katelin Montejo on 07-22-2024 Glucose Ql (U) Negative [facility] Laboratory - UrinalysisOrder ed By: Katelin Montejo on 07-22-2024 Protein Ql (U) Negative [facility] Otolaryngologist Office Visit Reporton 07-22-2024 Otolaryngologist Office Visit Report [facility] [address], [address] [place] [address] OFFICE VISIT Date of Service: 07/22/24 MR#: [id number] Acct: [id number] Name: DAVID POST Rep #: [id number] : 1990 Provider: Dr. Katelin Sotelo, Age/Sex: 33/F Location: [facility] [place].[facility] Status: Signed Intake Vital Signs 06/14/24 14:49 07/12/24 10:04 07/22/24 10:21 07/22/24 10:21 Height 5 ft 5 in 5 ft 5 in 5 ft 5 in 5 ft 5 in Weight: 184 lb 4 oz BMI 30.7 BP 118/73 Intake Visit Reasons: 36wk ob Documentation Clerk Required: No Is patient in pain?: No Allergies bee venom protein (honey bee) (bee sting) Allergy (Verified 07/22/24 10:20) Hives Medications ???Medication ???Instructions ???Recorded ???Confirmed ???Type multivitamin no.47-iron fum 27 1 cap PO DAILY 09/02/22 07/22/24 History mg-folate no.1 1 mg-dha 300 mg capsule (PNV-DHA) ferrous gluconate 240 mg (27 mg 240 mg PO QDAY 12/21/23 07/22/24 H istory iron) tablet (Ferate) nicotine 7 mg/24 hr daily 1 patch transdermal Q24H #14 ea 07/22/24 Rx transdermal patch buspirone 10 mg tablet 5 mg (1/2 x 10 mg) PO BID #60 tabs 05/13/24 07/22/24 Rx clobetasol 0.05 % topical cream topical BID 05/13/24 07/22/24 Hist ory Last Menstrual Period: 09/28/23 Zika: Zika virus screening: Negative : No PFSH PFSH Medical History Uterine anomaly Trauma Anxiety History of asthma History of back pain history of knee pain History of anemia Social History adopted: Yes household members: significant other, children and other details: JOSELYN Luciano (has two kids Ryan Khan lives with his mom) [facility] housing: house number of children: 2 current occupational status: other current occupation: [employer] current occupational exposures/hazards: No pets and animals: Yes (not managing litter box) pets and animals: cat(s) leisure activities: exercise history of recent travel: No sexually active: Yes Smoking Status: Former smoker quit date: 03/13/22 Tobacco: How many years used: 8 quit status: quit date established alcohol intake: never substance use type: marijuana and other details: last Oct 2022, counseling provided. Pt agreeable to drug testing well-balanced diet: daily or most days eating out: rarely or never during the past year weight has: decreased > 10 lbs what type of physical activity do you participate in: walking frequency: 1-2 times per week yesenia/taoist: None seatbelt use: always do you feel safe at home: Yes additional social history: [facility] History 2 Elective abortions Hx Para 1 Spontaneous abortions Hx # Term Pregnancies 1 Ectopic pregnancies Hx # Pregnancies Multiple births # of living children 1 Past Pregnancies Del. Date Name GA/Weeks Outcome Route Bth Weight Gen Labor Lgth Anesthesia Del Locatn Provider FOB 04/29/23 Jason 39 live - full term 6lbs 12oz Male [facility] Mustapha Luciano Delivery Date: 04/29/23 Last Updated by: Dee Dee Dejesus [facility] nrfhts HPI 36wk ob Details: DAVID POST is a 33 year old who presents for routine OB visit. OB Visit MANUEL Calculator Estimated Delivery Date Method Current WG Current Estimate 08/21/24 Ultrasound #1 35w 5d Other Estimates 07/04/24 LMP (Uncertain) 42w 4d 08/18/24 Ultrasound #2 36w 1d Expected Delivery Route/Plan R C/S with JV Specific Issue/Plans Covid status: [] Flu vaccine: [] Tdap vaccine: discussed Rhogam: [] LARC form signed: [] Problem list reviewed and updated with the most current plan of care details and appropriate orders placed. Relevant counseling for the gestational age provided. Continue routine care and follow up unless otherwise noted in visit notes/problem list details Initial Weight: 181 lb Date -???-???-???-???-???-?? ?-???-???-???-???-???-? ??- EGA Weight BP Urine Prot -???-???-???-???-???-?? ?-???-???-???-???-???-? ??- Glucose FHR FuHt Pres Dilation -???-???-???-???-???-?? ?-???-???-???-???-???-? ??- Effaced St Visit Note 12/21/23 -???-???-???-???-???-?? ?-???-???-???-???-???-? ??- 5w 1d 181 lb 8 oz (+8 oz) 110/70 -???-???-???-???-???-?? ?-???-???-???-???-???-? ??- -???-???-???-???-???-?? ?-???-???-???-???-???-? ??- KW- CRL not cons with dates. SM assisted with scan. measuring 5.1 weeks. plan for hcgs and repeat US next week. 02/23/24 -???-???-???-???-???-?? ?-???-???-???-???-???-? ??- 14w 2d 173 lb (-8 lb) 119/72 Negative -???-???-???-???-???-?? ?-???-???-???-???-???-? ??- Negative 147 -???-???-???-???-???-?? ?-???-???-???-???-???-? ??- JV- pt was a (more content not included)... Normal [facility] Laboratory - Chemistry and C hemistry - challengeOrdered By: Anna Marin on 07-12-2024 Glucose Ql (U) Negative [facility] Laboratory - UrinalysisOrder ed By: Anna Marin on 07-12-2024 Protein Ql (U) Negative [facility] Otolaryngologist Office Visit Reporton 07-12-2024 Otolaryngologist Office Visit Report [facility]'s [address], [address] [place] [address] OFFICE VISIT Date of Service: 07/12/24 MR#: [id number] Acct: [id number] Name: DAVID POST Rep #: [id number] : 1990 Provider: REECE Donis ams Age/Sex: 33/F Location: [facility] [place] Status: Signed Intake Vital Signs 06/14/24 14:49 06/24/24 14:26 07/12/24 10:04 Height 5 ft 5 in 5 ft 5 in 5 ft 5 in Weight: 182 lb 183 lb 6 oz 188 lb 2 oz BMI 30.2 30.5 31.3 BP 129/78 H 120/73 116/73 Intake Visit Reasons: 34wk ob Chief Complaint: 34wk OB Documentation Clerk Required: No Is patient in pain?: No Allergies bee venom protein (honey bee) (bee sting) Allergy (Verified 07/12/24 10:02) Hives Medications ???Medication ???Instructions ???Recorded ???Confirmed ???Type multivitamin no.47-iron fum 27 1 cap PO DAILY 09/02/22 07/12/24 History mg-folate no.1 1 mg-dha 300 mg capsule (PNV-DHA) ferrous gluconate 240 mg (27 mg 240 mg PO QDAY 12/21/23 07/12/24 H istory iron) tablet (Ferate) nicotine 7 mg/24 hr daily 1 patch transdermal Q24H #14 ea 07/12/24 Rx transdermal patch buspirone 10 mg tablet 5 mg (1/2 x 10 mg) PO BID #60 tabs 05/13/24 07/12/24 Rx clobetasol 0.05 % topical cream topical BID 05/13/24 07/12/24 Hist ory Last Menstrual Period: 09/28/23 : No PFSH PFSH Medical History Uterine anomaly Trauma Anxiety History of asthma History of back pain history of knee pain History of anemia Social History adopted: Yes household members: significant other, children and other details: JOSELYN Luciano (has two kids Ryan Khan lives with his mom) - [place] housing: house number of children: 2 current occupational status: other current occupation: [employer] current occupational exposures/hazards: No pets and animals: Yes (not managing litter box) pets and animals: cat(s) leisure activities: exercise history of recent travel: No sexually active: Yes Smoking Status: Former smoker quit date: 03/13/22 Tobacco: How many years used: 8 quit status: quit date established alcohol intake: never substance use type: marijuana and other details: last Oct 2022, counseling provided. Pt agreeable to drug testing well-balanced diet: daily or most days eating out: rarely or never during the past year weight has: decreased > 10 lbs what type of physical activity do you participate in: walking frequency: 1-2 times per week yesenia/taoist: None seatbelt use: always do you feel safe at home: Yes additional social history: [facility] History 2 Elective abortions Hx Para 1 Spontaneous abortions Hx # Term Pregnancies 1 Ectopic pregnancies Hx # Pregnancies Multiple births # of living children 1 Past Pregnancies Del. Date Name GA/Weeks Outcome Route Bth Weight Infant Gen Labor Lgth Anesthesia Del Locatn Provider FOB 04/29/23 Jason 39 live - full term 6lbs 12oz Male [facility] Mustapha Luciano Delivery Date: 04/29/23 Last Updated by: Dee Dee Dejesus [facility] nrfhts HPI 34wk ob Details: DAVID POST is a 33 year old who presents for routine OB visit. OB Visit MANUEL Calculator Estimated Delivery Date Method Current WG Current Estimate 08/21/24 Ultrasound #1 34w 2d Other Estimates 07/04/24 LMP (Uncertain) 41w 1d 08/18/24 Ultrasound #2 34w 5d Expected Delivery Route/Plan R C/S with JV Specific Issue/Plans Covid status: [] Flu vaccine: [] Tdap vaccine: discussed Rhogam: [] LARC form signed: [] Problem list reviewed and updated with the most current plan of care details and appropriate orders placed. Relevant counseling for the gestational age provided. Continue routine care and follow up unless otherwise noted in visit notes/problem list details Initial Weight: 181 lb Date -???-???-???-???-???-?? ?-???-???-???-???-???-? ??- EGA Weight BP Urine Prot -???-???-???-???-???-?? ?-???-???-???-???-???-? ??- Glucose FHR FuHt Pres Dilation -???-???-???-???-???-?? ?-???-???-???-???-???-? ??- Effaced St Visit Note 12/21/23 -???-???-???-???-???-?? ?-???-???-???-???-???-? ??- 5w 1d 181 lb 8 oz (+8 oz) 110/70 -???-???-???-???-???-?? ?-???-???-???-???-???-? ??- -???-???-???-???-???-?? ?-???-???-???-???-???-? ??- KW- CRL not cons with dates. SM assisted with scan. measuring 5.1 weeks. plan for hcgs and repeat US next week. 02/23/24 -???-???-???-???-???-?? ?-???-???-???-???-???-? ??- 14w 2d 173 lb (-8 lb) 119/72 Negative -???-???-???-???-???-?? ?-???-???-???-???-???-? ??- Negative 147 -???-???-???-???-???-?? ?-???-???-???-???-???-? ??- JV- pt was a bsent for a w (more content not included)... Normal [facility] Laboratory - Chemistry and C hemistry - challengeOrdered By: Anna Marin on 06-24-2024 Glucose Ql (U) Negative [facility] Laboratory - UrinalysisOrder ed By: Anna Marin on 06-24-2024 Protein Ql (U) Negative [facility] Otolaryngologist Office Visit Reporton 06-24-2024 Otolaryngologist Office Visit Report [facility] [address], [address] [place] [address] OFFICE VISIT Date of Service: 06/24/24 MR#: [id number] Acct: [id number] Name: DAVID POST Rep #: [id number] : 1990 Provider: REECE Donis ams Age/Sex: 33/F [place] [facility] Status: Signed Intake Vital Signs 06/14/24 14:49 06/24/24 14:26 Height 5 ft 5 in 5 ft 5 in Weight: 183 lb 6 oz BMI 30.5 BP 120/73 Intake Visit Reasons: 32wk ob Chief Complaint: 32wk ob Documentation Clerk Required: No Is patient in pain?: No Allergies bee venom protein (honey bee) (bee sting) Allergy (Verified 06/24/24 14:27) Hives Medications ???Medication ???Instructions ???Recorded ???Confirmed ???Type multivitamin no.47-iron fum 27 1 cap PO DAILY 09/02/22 06/24/24 History mg-folate no.1 1 mg-dha 300 mg capsule (PNV-DHA) ferrous gluconate 240 mg (27 mg 240 mg PO QDAY 12/21/23 06/24/24 H istory iron) tablet (Ferate) nicotine 7 mg/24 hr daily 1 patch transdermal Q24H #14 ea 06/24/24 Rx transdermal patch buspirone 10 mg tablet 5 mg (1/2 x 10 mg) PO BID #60 tabs 05/13/24 06/24/24 Rx clobetasol 0.05 % topical cream topical BID 05/13/24 06/24/24 Hist ory Last Menstrual Period: 09/28/23 : No PFSH PFSH Medical History Uterine anomaly Trauma Anxiety History of asthma History of back pain history of knee pain History of anemia Social History adopted: Yes household members: significant other, children and other details: JOSELYN Luciano (has two kids Ryan Khan lives with his mom[facility] number of children: 2 current occupational status: other current occupation: [employer] current occupational exposures/hazards: No pets and animals: Yes (not managing litter box) pets and animals: cat(s) leisure activities: exercise history of recent travel: No sexually active: Yes Smoking Status: Former smoker quit date: 03/13/22 Tobacco: How many years used: 8 quit status: quit date established alcohol intake: never substance use type: marijuana and other details: last Oct 2022, counseling provided. Pt agreeable to drug testing well-balanced diet: daily or most days eating out: rarely or never during the past year weight has: decreased > 10 lbs what type of physical activity do you participate in: walking frequency: 1-2 times per week yesenia/taoist: None seatbelt use: always do you feel safe at home: Yes additional social history: [facility] 2 Elective abortions Hx Para 1 Spontaneous abortions Hx # Term Pregnancies 1 Ectopic pregnancies Hx # Pregnancies Multiple births # of living children 1 Past Pregnancies Del. Date Name GA/Weeks Outcome Route Bth Weight Infant Gen Labor Lgth Anesthesia Del Locatn Provider FOB 04/29/23 Jason 39 live - full term 6lbs 12oz Male [facility] Mustapha Luciano Delivery Date: 04/29/23 Last Updated by: Dee Dee Dejesus [facility] nrfhts HPI 32wk ob Details: DAVID POST is a 33 year old who presents for routine OB visit. OB Visit MANUEL Calculator Estimated Delivery Date Method Current WG Current Estimate 08/21/24 Ultrasound #1 31w 5d Other Estimates 07/04/24 LMP (Uncertain) 38w 4d 08/18/24 Ultrasound #2 32w 1d Expected Delivery Route/Plan R C/S with JV Specific Issue/Plans Covid status: [] Flu vaccine: [] Tdap vaccine: discussed Rhogam: [] LARC form signed: [] Problem list reviewed and updated with the most current plan of care details and appropriate orders placed. Relevant counseling for the gestational age provided. Continue routine care and follow up unless otherwise noted in visit notes/problem list details Initial Weight: 181 lb Date -???-???-???-???-???-?? ?-???-???-???-???-???-? ??- EGA Weight BP Urine Prot -???-???-???-???-???-?? ?-???-???-???-???-???-? ??- Glucose FHR FuHt Pres Dilation -???-???-???-???-???-?? ?-???-???-???-???-???-? ??- Effaced St Visit Note 12/21/23 -???-???-???-???-???-?? ?-???-???-???-???-???-? ??- 5w 1d 181 lb 8 oz (+8 oz) 110/70 -???-???-???-???-???-?? ?-???-???-???-???-???-? ??- -???-???-???-???-???-?? ?-???-???-???-???-???-? ??- KW- [facility] not cons with dates. assisted with scan. measuring 5.1 weeks. plan for hcgs and repeat US next week. 02/23/24 -???-???-???-???-???-?? ?-???-???-???-???-???-? ??- 14w 2d 173 lb (-8 lb) 119/72 Negative -???-???-???-???-???-?? ?-???-???-???-???-???-? ??- Negative 147 -???-???-???-???-???-?? ?-???-???-???-???-???-? ??- MAGDI- pt was a bsent for a weeks due to insurance loss. She states that they have insurance now . ne (more content not included)... Normal [facility] Laboratory - Chemistry and C hemistry - challengeOrdered By: Meena Luciano on 06-14-2024 Glucose Ql (U) Negative [facility] Laboratory - UrinalysisOrder ed By: Meena Luciano on 06-14-2024 Protein Ql (U) Negative [facility] Otolaryngologist Office Visit Reporton 06-14-2024 Otolaryngologist Office Visit Report [facility]'s [address], [address] [place] [address] OFFICE VISIT Date of Service: 06/14/24 MR#: [id number] Acct: [id number] Name: DAVID POST Rep #: [id number] : 1990 Provider: Dr. Meena amezquita MD Age/Sex: 33/F [place] [facility] [place] Status: Signed Intake Vital Signs 02/23/24 09:41 05/27/24 14:51 06/14/24 14:48 06/14/24 14:49 Height 5 ft 3 in 5 ft 5 in 5 ft 5 in 5 ft 5 in Weight: 182 lb BMI 30.2 BP 129/78 H Intake Visit Reasons: 30 wk ob Documentation Clerk Required: No Is patient in pain?: Yes (some chaitanya neely pain, goes away with rest and water) Allergies bee venom protein (honey bee) (bee sting) Allergy (Verified 06/14/24 14:48) Hives Medications ???Medication ???Instructions ???Recorded ???Confirmed ???Type multivitamin no.47-iron fum 27 1 cap PO DAILY 09/02/22 06/14/24 History mg-folate no.1 1 mg-dha 300 mg capsule (PNV-DHA) ferrous gluconate 240 mg (27 mg 240 mg PO QDAY 12/21/23 06/14/24 H istory iron) tablet (Ferate) nicotine 7 mg/24 hr daily 1 patch transdermal Q24H #14 ea 06/14/24 Rx transdermal patch buspirone 10 mg tablet 5 mg (1/2 x 10 mg) PO BID #60 tabs 05/13/24 06/14/24 Rx clobetasol 0.05 % topical cream topical BID 05/13/24 06/14/24 Hist ory Last Menstrual Period: 09/28/23 Zika: Zika virus screening: Negative : No PFSH PFSH Medical History Uterine anomaly Trauma Anxiety History of asthma History of back pain history of knee pain History of anemia Social History adopted: Yes household members: significant other, children and other details: JOSELYN Luciano (has two kids Ryan Khan lives with his mom) [facility] housing: house number of children: 2 current occupational status: other current occupation: [employer] current occupational exposures/hazards: No pets and animals: Yes (not managing litter box) pets and animals: cat(s) leisure activities: exercise history of recent travel: No sexually active: Yes Smoking Status: Former smoker quit date: 03/13/22 Tobacco: How many years used: 8 quit status: quit date established alcohol intake: never substance use type: marijuana and other details: last Oct 2022, counseling provided. Pt agreeable to drug testing well-balanced diet: daily or most days eating out: rarely or never during the past year weight has: decreased > 10 lbs what type of physical activity do you participate in: walking frequency: 1-2 times per week yesenia/taoist: None seatbelt use: always do you feel safe at home: Yes additional social history: [facility] History 2 Elective abortions Hx Para 1 Spontaneous abortions Hx # Term Pregnancies 1 Ectopic pregnancies Hx # Pregnancies Multiple births # of living children 1 Past Pregnancies Del. Date Name GA/Weeks Outcome Route Bth Weight Infant Gen Labor Lgth Anesthesia Del Locatn Provider FOB 04/29/23 Jason 39 live - full term 6lbs 12oz Male [facility] Mustapha Luciano Delivery Date: 04/29/23 Last Updated by: Dee Dee Dejesus [facility] nrfhts HPI 30 wk ob Details: DAVID POST is a 33 year old who presents for routine OB visit. OB Visit MANUEL Calculator Estimated Delivery Date Method Current WG Current Estimate 08/21/24 Ultrasound #1 30w 2d Other Estimates 07/04/24 LMP (Uncertain) 37w 1d 08/18/24 Ultrasound #2 30w 5d Expected Delivery Route/Plan R C/S with JV Specific Issue/Plans Covid status: [] Flu vaccine: [] Tdap vaccine: discussed Rhogam: [] LARC form signed: [] Problem list reviewed and updated with the most current plan of care details and appropriate orders placed. Relevant counseling for the gestational age provided. Continue routine care and follow up unless otherwise noted in visit notes/problem list details Initial Weight: 181 lb Date -???-???-???-???-???-?? ?-???-???-???-???-???-? ??- EGA Weight BP Urine Prot -???-???-???-???-???-?? ?-???-???-???-???-???-? ??- Glucose FHR FuHt Pres Dilation -???-???-???-???-???-?? ?-???-???-???-???-???-? ??- Effaced St Visit Note 12/21/23 -???-???-???-???-???-?? ?-???-???-???-???-???-? ??- 5w 1d 181 lb 8 oz (+8 oz) 110/70 -???-???-???-???-???-?? ?-???-???-???-???-???-? ??- -???-???-???-???-???-?? ?-???-???-???-???-???-? ??- KW- CRL not cons with dates. SM assisted with scan. measuring 5.1 weeks. plan for hcgs and repeat US next week. 02/23/24 -???-???-???-???-???-?? ?-???-???-???-???-???-? ??- 14w 2d 173 lb (-8 lb) 119/72 Negative -???-???-???-???-???-?? ?-???-???-???-???-???-? ??- Negative 147 -???-???-???-?? (more content not included)... Normal [facility] Absolute lymphocyte countOrd ered By: Anna Marin on 05-27-2024 Lymphocytes Auto (Unsp spec) [#/Vol] 1.68 10*3/uL 0.83-4.51 [facility] Absolute neutrophil countOrd ered By: Anna Marin on 05-27-2024 Neutrophils (Bld) [#/Vol] 8.4 10*3/uL High 2.0-7.7 [facility] Automated lymphocyte count a s percentage of total leukocytesOrdered By: Anna Marin on 05-27-2024 Lymphocytes/100 WBC Auto (Unsp spec) 15.4 % Low 19-41 [facility] Basophil percentageOrdered B y: Anna Marin on 05-27-2024 Basophils/100 WBC (Bld) 0.4 % 0-1 [facility] CBC W/Diff, Automatedon 05-11 Absolute Lymph 1.68 X10 3/uL Normal 0.83-4.51 [facility] Comment on above: Performed By: #### L 505.5000 #### [facility] Laboratory [address] [place], [place], [id number] Absolute Neut 8.4 X10 3/uL High 2.0-7.7 [facility] Comment on above: Performed By: #### L 505.5000 #### [facility] [address] [place], [address] Basophils/100 WBC (Bld) 0.4 % Normal 0-1 [facility] Comment on above: Performed By: #### L 505.5000 #### [facility] [address] [place], [address] Eosinophils/100 WBC (Bld) 0.9 % Normal 0-5 [facility] Comment on above: Performed By: #### L 505.5000 #### [facility] [address] [place], [address] Erythrocyte distribution width (RBC) [Ratio] 13.0 % Normal 11.6-14.6 [facility] Comment on above: Performed By: #### L 505.5000 #### [facility] [address] [place], [address] Hematocrit (Bld) [Volume fraction] 34.6 % Low 37-47 [facility] Comment on above: Performed By: #### L 505.5000 #### [facility] [address] [place], [address] Hemoglobin (Bld) [Mass/Vol] 12.0 g/dL Normal 12.0-15.0 [facility] Comment on above: Performed By: #### L 505.5000 #### [facility] [address] [place], [address] IG% 0.600 Normal 0.0-0.9 [facility] Comment on above: Result Comment: IG% - Immature Granulocytes (promyelocytes, myelocytes and metamyelocytes) > 1% indicates that a LEFT SHIFT is Present. Performed By: #### L 505.5000 #### [facility] [address] [place], [address] Lymphocytes/100 WBC (Bld) 15.4 % Low 19-41 [facility] Comment on above: Performed By: #### L 505.5000 #### [facility] [address] [place], [address] MCH (RBC) [Entitic mass] 32.7 pg High 27.0-32.0 [facility] Comment on above: Performed By: #### L 505.5000 #### [facility] [address] [place], [address] MCHC (RBC) [Mass/Vol] 34.7 g/dL Normal 32-36 [facility] Comment on above: Performed By: #### L 505.5000 #### [facility] [address] [place], [address] MCV (RBC) [Entitic vol] 94.3 fL Normal 81-[address] [facility] Comment on above: Performed By: #### L 505.5000 #### [facility] [address] [place], [address] Monocytes/100 WBC (Bld) 6.1 % Normal 0-[address] [facility] Comment on above: Performed By: #### L 505.5000 #### [facility] [address] [place], [address] Neutrophils/100 WBC (Bld) 76.6 % High 47-70 [facility] Comment on above: Performed By: #### L 505.5000 #### [facility] [address] [place], [address] Nucleated RBC (Bld) [#/Vol] 0 10*3/uL Normal 0-5 [facility] Comment on above: Performed By: #### L 505.5000 #### [facility] [address] [place], [address] Platelet mean volume (Bld) [Entitic vol] 10.4 fL Normal 6.2-12.0 [facility] Comment on above: Performed By: #### L 505.5000 #### [facility] [address] [place], [address] Platelets (Bld) [#/Vol] 274 10*3/uL Normal 150-450 [facility] Comment on above: Performed By: #### L 505.5000 #### [facility] [address] [place], [address] RBC (Bld) [#/Vol] 3.67 10*6/uL Low 4.2-5.[address] [facility] Comment on above: Performed By: #### L 505.5000 #### [facility] [address] [place], [address] RDW SD 45.1 fl High 35.1-43.9 [facility] Comment on above: Performed By: #### L 505.5000 #### [facility] [address] [place], [address] WBC (Bld) [#/Vol] 10.9 10*3/uL Normal 4.4-11.[address] [facility] Comment on above: Performed By: #### L 505.5000 #### [facility] [address] [place], [address] Eosinophil percentageOrdered By: Anna Marin on 05-27-2024 Eosinophils/100 WBC (Bld) 0.9 % 0-5 [facility] Erythrocyte distribution wid th ratioOrdered By: Anna Marin on 05-27-2024 Erythrocyte distribution width (RBC) [Ratio] 13.0 % 11.6-14.6 [facility] Erythrocyte distribution wid th standard deviationOrdered By: Anna Marin on 05-27-2024 Erythrocyte distribution width (RBC) [Entitic vol] 45.1 fL High 35.1-43.9 [facility] Erythrocyte distribution width (RBC) [Ratio] 45.1 fl High 35.1-43.9 [facility] Glucose Challenge Gest 1H 50 kandace 05-27-2024 GLU GEST 50g 1H 96 mg/dL Normal 70-140 [facility] Comment on above: Performed By: #### L 3410.9994, L3380.9100 #### [facility] [address] [place], [place], [id number] Glucose measurement at 2 neela rs post-dose gestational glucose tolerance testOrdered By: Anna Marin on 05-27-2024 Glucose [Mass/Vol] 96 mg/dL 70-140 [facility] Hematocrit Auto (Bld) [Volum e fraction]Ordered By: Anna Marin on 05-27-2024 Hematocrit (Bld) [Volume fraction] 34.6 % Low 37-47 [facility] Hemoglobin measurementOrdere d By: Anna Marin on 05-27-2024 Hemoglobin (Bld) [Mass/Vol] 12.0 g/dL 12.0-15.0 [facility] Immature granulocytes/100 WB C Auto (Bld)Ordered By: Anna Marin on 05-27-2024 Immature granulocytes/100 WBC (Bld) 0.600 % 0.0-0.9 [facility] Comment on above: IG% - Immature Granu locytes (promyelocytes, myelocytes and metamyelocytes) > 1% indicates that a LEFT SHIFT is Present. L3890.6006on 05-27-2024 HIV Non-Reactive Normal Nonreactive [facility] Comment on above: Result Comment: Non- Reactive Reactive Repeatedly reactive samples must be confirmed according to CDC recommended confirmatory algorithms. The subresults for either HIVAG or AHIV can be used as an aid in the selection of the confirmation algorithm for reactive samples. Send out specimens with Reactive results to [facility] for confirmation. Order the HIV antibody detection and differentiation: #[id number] Performed By: #### L 509.8002, L3890.6006 #### [facility] [address] [place], [place], [id number] L509.8002on 05-27-2024 Syphilis Abs Non-Reactive Normal Nonreactive [facility] Comment on above: Performed By: #### L 509.8002, L3890.6006 #### [facility] [address] [place], [place], [id number] Laboratory - Chemistry and C hemistry - challengeOrdered By: Anna Marin on 05-27-2024 Glucose Ql (U) Negative [facility] Laboratory - UrinalysisOrder ed By: Anna Marin on 05-27-2024 Protein Ql (U) Negative [facility] Lymphocytes Auto (Unsp spec) [#/Vol]Ordered By: Anna Marin on 05-27-2024 Lymphocytes (Bld) [#/Vol] 1.68 10*3/uL 0.83-4.51 [facility] Lymphocytes/100 WBC Auto (Un sp spec)Ordered By: Anna Marin on 05-27-2024 Lymphocytes/100 WBC (Bld) 15.4 % Low 19-41 [facility] MCV (mean corpuscular volume ) determinationOrdered By: Anna Marin on 05-27-2024 MCV (RBC) [Entitic vol] 94.3 fL 81-99 [facility] Mean corpuscular hemoglobin (MCH) determinationOrdered By: Anna Marin on 05-27-2024 MCH (RBC) [Entitic mass] 32.7 pg High 27.0-32.0 [facility] Mean corpuscular hemoglobin concentration (MCHC) determinationOrdered By: Anna Marin on 05-27-2024 MCHC (RBC) [Mass/Vol] 34.7 g/dL 32-36 [facility] Mean platelet volume determi nationOrdered By: Anna Marin on 05-27-2024 Platelet mean volume (Bld) [Entitic vol] 10.4 fL 6.2-12.0 [facility] Monocyte percentageOrdered B y: Anna Marin on 05-27-2024 Monocytes/100 WBC (Bld) 6.1 % 0-10 [facility] Neutrophil percentageOrdered By: Anna Marin on 05-27-2024 Neutrophils/100 WBC (Bld) 76.6 % High 47-70 [facility] No Panel InformationOrdered By: Anna Marin on 05-27-2024 HIV (1&2) Antibody Non-Reactive Nonreactive [facility] Comment on above: Non-ReactiveReactive Repeatedly reactive samples must be confirmed according to CDC recommended confirmatory algorithms. The subresults for either HIVAG or AHIV can be used as an aid in the selection of the confirmation algorithm for reactive samples.Send out specimens with Reactive results to [facility] for confirmation.Order the HIV antibody detection and differentiation: #[id number] Nucleated red blood cell per centageOrdered By: Anna Marin on 05-27-2024 Nucleated RBC/100 WBC (Bld) [Ratio] 0 % 0-5 [facility] Otolaryngologist Office Visit Reporton 05-27-2024 Otolaryngologist Office Visit Report [facility] [address], [address] [place] [address] OFFICE VISIT Date of Service: 05/27/24 MR#: [id number] Acct: [id number] Name: DAVID POST Rep #: [id number] : 1990 Provider: REECE Donis ams Age/Sex: 33/F Location: [facility] [place] Status: Signed Intake Vital Signs 02/23/24 09:41 05/13/24 11:02 05/27/24 14:51 Height 5 ft 3 in 5 ft 5 in 5 ft 5 in Weight: 181 lb 4 oz BMI 30.1 BP 108/66 Intake Visit Reasons: 28 wk ob/glucose Chief Complaint: 28wk ob Is patient in pain?: No Allergies bee venom protein (honey bee) (bee sting) Allergy (Verified 05/27/24 14:51) Hives Medications ???Medication ???Instructions ???Recorded ???Confirmed ???Type multivitamin no.47-iron fum 27 1 cap PO DAILY 09/02/22 05/27/24 History mg-folate no.1 1 mg-dha 300 mg capsule (PNV-DHA) ferrous gluconate 240 mg (27 mg 240 mg PO QDAY 12/21/23 05/27/24 H istory iron) tablet (Ferate) nicotine 7 mg/24 hr daily 1 patch transdermal Q24H #14 ea 05/27/24 Rx transdermal patch buspirone 10 mg tablet 5 mg (1/2 x 10 mg) PO BID #60 tabs 05/13/24 05/27/24 Rx clobetasol 0.05 % topical cream topical BID 05/13/24 05/27/24 Hist ory Last Menstrual Period: 09/28/23 : No PFSH PFSH Medical History Uterine anomaly Trauma Anxiety History of asthma History of back pain history of knee pain History of anemia Social History adopted: Yes household members: significant other, children and other details: JOSELYN Luciano (has two kids Ryan Khan lives with his mom) - [place] housing: house number of children: 2 current occupational status: other current occupation: [employer] current occupational exposures/hazards: No pets and animals: Yes (not managing litter box) pets and animals: cat(s) leisure activities: exercise history of recent travel: No sexually active: Yes Smoking Status: Former smoker quit date: 03/13/22 Tobacco: How many years used: 8 quit status: quit date established alcohol intake: never substance use type: marijuana and other details: last Oct 2022, counseling provided. Pt agreeable to drug testing well-balanced diet: daily or most days eating out: rarely or never during the past year weight has: decreased > 10 lbs what type of physical activity do you participate in: walking frequency: 1-2 times per week yesenia/taoist: None seatbelt use: always do you feel safe at home: Yes additional social history: [facility] History 2 Elective abortions Hx Para 1 Spontaneous abortions Hx # Term Pregnancies 1 Ectopic pregnancies Hx # Pregnancies Multiple births # of living children 1 Past Pregnancies Del. Date Name GA/Weeks Outcome Route Bth Weight Gen Labor Lgth Anesthesia Del Locatn Provider FOB 04/29/23 Jason 39 live - full term 6lbs 12oz Male [facility] Mustapha Luciano Delivery Date: 04/29/23 Last Updated by: Dee Dee Dejesus [facility] nrfhts HPI 28 wk ob/glucose Details: DAVID POST is a 33 year old who presents for routine OB visit. OB Visit MANUEL Calculator Estimated Delivery Date Method Current WG Current Estimate 08/21/24 Ultrasound #1 27w 5d Other Estimates 07/04/24 LMP (Uncertain) 34w 4d 08/18/24 Ultrasound #2 28w 1d Expected Delivery Route/Plan R C/S with Specific Issue/Plans Covid status: [] Flu vaccine: [] Tdap vaccine: [] Rhogam: [] LARC form signed: [] Problem list reviewed and updated with the most current plan of care details and appropriate orders placed. Relevant counseling for the gestational age provided. Continue routine care and follow up unless otherwise noted in visit notes/problem list details Initial Weight: 181 lb Date -???-???-???-???-???-?? ?-???-???-???-???-???-? ??- EGA Weight BP Urine Prot -???-???-???-???-???-?? ?-???-???-???-???-???-? ??- Glucose FHR FuHt Pres Dilation -???-???-???-???-???-?? ?-???-???-???-???-???-? ??- Effaced St Visit Note 12/21/23 -???-???-???-???-???-?? ?-???-???-???-???-???-? ??- 5w 1d 181 lb 8 oz (+8 oz) 110/70 -???-???-???-???-???-?? ?-???-???-???-???-???-? ??- -???-???-???-???-???-?? ?-???-???-???-???-???-? ??- KW- CRL not cons with dates. assisted with scan. measuring 5.1 weeks. plan for hcgs and repeat US next week. 02/23/24 -???-???-???-???-???-?? ?-???-???-???-???-???-? ??- 14w 2d 173 lb (-8 lb) 119/72 Negative -???-???-???-???-???-?? ?-???-???-???-???-???-? ??- Negative 147 -???-???-???-???-???-?? ?-???-???-???-???-???-? ??- JV- pt was a bsent for a weeks due to insurance loss. She states that they have insuran (more content not included)... Normal [facility] Platelet countOrdered By: Jeff Marin on 05-27-2024 Platelets (Bld) [#/Vol] 274 10*3/uL 150-450 [facility] RBC Auto (Bld) [#/Vol]Ordere d By: Anna Marin on 05-27-2024 RBC (Bld) [#/Vol] 3.67 10*6/uL Low 4.2-5.[address] [facility] T. pallidum abOrdered By: Jeff Marin on 05-27-2024 Syphilis Total Antibody Non-Reactive Nonreactiv e [facility] White blood cell (WBC) count Ordered By: Anna Marin on 05-27-2024 WBC (Bld) [#/Vol] 10.9 10*3/uL 4.4-11.[address] [facility] Laboratory - Chemistry and C hemistry - challengeOrdered By: Anna Marin on 05-13-2024 Glucose Ql (U) Negative [facility] Laboratory - UrinalysisOrder ed By: Anna Marin on 05-13-2024 Protein Ql (U) Negative [facility] Otolaryngologist Office Visit Reporton 05-13-2024 Otolaryngologist Office Visit Report [facility] [address], [address] [place] [address] OFFICE VISIT Date of Service: 05/13/24 MR#: [id number] Acct: [id number] Name: DAVID POST Rep #: [id number] : 1990 Provider: REECE Donis ams Age/Sex: 33/F Location: [facility] [place] Status: Signed Intake Vital Signs 02/23/24 09:41 03/22/24 14:56 05/02/24 10:42 05/13/24 11:02 Height 5 ft 3 in 5 ft 3 in 5 ft 5 in 5 ft 5 in Weight: 181 lb 2 oz BMI 30.1 BP 110/68 Intake Visit Reasons: 26 wk ob Chief Complaint: 26wk OB Is patient in pain?: No Allergies bee venom protein (honey bee) (bee sting) Allergy (Verified 05/13/24 11:03) Hives Medications ???Medication ???Instructions ???Recorded ???Confirmed ???Type multivitamin no.47-iron fum 27 1 cap PO DAILY 09/02/22 05/13/24 History mg-folate no.1 1 mg-dha 300 mg capsule (PNV-DHA) ferrous gluconate 240 mg (27 mg 240 mg PO QDAY 12/21/23 05/13/24 H istory iron) tablet (Ferate) nicotine 7 mg/24 hr daily 1 patch transdermal Q24H #14 ea 05/13/24 Rx transdermal patch buspirone 10 mg tablet 5 mg (1/2 x 10 mg) PO BID #60 tabs 05/13/24 05/13/24 Rx clobetasol 0.05 % topical cream topical BID 05/13/24 05/13/24 Hist ory Last Menstrual Period: 09/28/23 PFSH PFSH Medical History Uterine anomaly Trauma Anxiety History of asthma History of back pain history of knee pain History of anemia Social History adopted: Yes household members: significant other, children and other details: JOSELYN Luciano (has two kids Ryan Khan lives with his mom) [facility] housing: house number of children: 2 current occupational status: other current occupation: [employer] current occupational exposures/hazards: No pets and animals: Yes (not managing litter box) pets and animals: cat(s) leisure activities: exercise history of recent travel: No sexually active: Yes Smoking Status: Former smoker quit date: 03/13/22 Tobacco: How many years used: 8 quit status: quit date established alcohol intake: never substance use type: marijuana and other details: last Oct 2022, counseling provided. Pt agreeable to drug testing well-balanced diet: daily or most days eating out: rarely or never during the past year weight has: decreased > 10 lbs what type of physical activity do you participate in: walking frequency: 1-2 times per week yesenia/taoist: None seatbelt use: always do you feel safe at home: Yes additional social history: [facility] History 2 Elective abortions Hx Para 1 Spontaneous abortions Hx # Term Pregnancies 1 Ectopic pregnancies Hx # Pregnancies Multiple births # of living children 1 Past Pregnancies Del. Date Name GA/Weeks Outcome Route Bth Weight Gen Labor Lgth Anesthesia Del Locatn Provider FOB 04/29/23 Jason 39 live - full term 6lbs 12oz Male [facility] Mustapha Luciano Delivery Date: 04/29/23 Last Updated by: Dee Dee Dejesus [facility] nrfhts HPI 26 wk ob Details: DAVID POST is a 33 year old who presents for routine OB visit. OB Visit MANUEL Calculator Estimated Delivery Date Method Current WG Current Estimate 08/21/24 Ultrasound #1 25w 5d Other Estimates 07/04/24 LMP (Uncertain) 32w 4d 08/18/24 Ultrasound #2 26w 1d Expected Delivery Route/Plan R C/S with Specific Issue/Plans Covid status: [] Flu vaccine: [] Tdap vaccine: [] Rhogam: [] LARC form signed: [] Problem list reviewed and updated with the most current plan of care details and appropriate orders placed. Relevant counseling for the gestational age provided. Continue routine care and follow up unless otherwise noted in visit notes/problem list details Initial Weight: 181 lb Date -???-???-???-???-???-?? ?-???-???-???-???-???-? ??- EGA Weight BP Urine Prot -???-???-???-???-???-?? ?-???-???-???-???-???-? ??- Glucose FHR FuHt Pres Dilation -???-???-???-???-???-?? ?-???-???-???-???-???-? ??- Effaced St Visit Note 12/21/23 -???-???-???-???-???-?? ?-???-???-???-???-???-? ??- 5w 1d 181 lb 8 oz (+8 oz) 110/70 -???-???-???-???-???-?? ?-???-???-???-???-???-? ??- -???-???-???-???-???-?? ?-???-???-???-???-???-? ??- KW- CRL not cons with dates. SM assisted with scan. measuring 5.1 weeks. plan for hcgs and repeat US next week. 02/23/24 -???-???-???-???-???-?? ?-???-???-???-???-???-? ??- 14w 2d 173 lb (-8 lb) 119/72 Negative -???-???-???-???-???-?? ?-???-???-???-???-???-? ??- Negative 147 -???-???-???-???-???-?? ?-???-???-???-???-???-? ??- JDesiree- pt was a bsent for a weeks due to insurance loss. She states that they have insurance now . (more content not included)... Normal [facility] Absolute lymphocyte countOrd ered By: Meena Luciano on 05-02-2024 Lymphocytes Auto (Unsp spec) [#/Vol] 1.92 10*3/uL 0.83-4.51 [facility] Absolute neutrophil countOrd ered By: Meena Luciano on 05-02-2024 Neutrophils (Bld) [#/Vol] 7.6 10*3/uL 2.0-7.7 [facility] Automated lymphocyte count a s percentage of total leukocytesOrdered By: Meean Luciano on 05-02-2024 Lymphocytes/100 WBC Auto (Unsp spec) 18.6 % Low 19-41 [facility] Basophil percentageOrdered B y: Meena Luciano on 05-02-2024 Basophils/100 WBC (Bld) 0.5 % 0-1 [facility] CBC W/Diff, Automatedon --2024 Absolute Lymph 1.92 X10 3/uL Normal 0.83-4.51 [facility] Comment on above: Performed By: #### M 100.2200, L505.5000, L7000.1800 #### [facility] Laboratory [address] [place], [address] Absolute Neut 7.6 X10 3/uL Normal 2.0-7.7 [facility] Comment on above: Performed By: #### M 100.2200, L505.5000, L7000.1800 #### [facility] [address] [place], [address] Basophils/100 WBC (Bld) 0.5 % Normal 0-1 [facility] Comment on above: Performed By: #### M 100.2200, L505.5000, L7000.1800 #### [facility] [address] [place], [address] Eosinophils/100 WBC (Bld) 0.7 % Normal 0-5 [facility] Comment on above: Performed By: #### M 100.2200, L505.5000, L7000.1800 #### [facility] [address] [place], [address] Erythrocyte distribution width (RBC) [Ratio] 12.9 % Normal 11.6-14.6 [facility] Comment on above: Performed By: #### M 100.2200, L505.5000, L7000.1800 #### [facility] [address] [place], [address] Hematocrit (Bld) [Volume fraction] 33.7 % Low 37-47 [facility] Comment on above: Performed By: #### M 100.2200, L505.5000, L7000.1800 #### [facility] [address] [place], [address] Hemoglobin (Bld) [Mass/Vol] 11.6 g/dL Low 12.0-15.0 [facility] Comment on above: Performed By: #### M 100.2200, L505.5000, L7000.1800 #### [facility] [address] [place], [address] IG% 0.700 Normal 0.0-0.9 [facility] Comment on above: Result Comment: IG% - Immature Granulocytes (promyelocytes, myelocytes and metamyelocytes) > 1% indicates that a LEFT SHIFT is Present. Performed By: #### M 100.2200, L505.5000, L7000.1800 #### [facility] [address] [place], [address] Lymphocytes/100 WBC (Bld) 18.6 % Low 19-41 [facility] Comment on above: Performed By: #### M 100.2200, L505.5000, L7000.1800 #### [facility] [address] [place], [address] MCH (RBC) [Entitic mass] 32.1 pg High 27.0-32.0 [facility] Comment on above: Performed By: #### M 100.2200, L505.5000, L7000.1800 #### [facility] [address] [place], [address] MCHC (RBC) [Mass/Vol] 34.4 g/dL Normal 32-36 [facility] Comment on above: Performed By: #### M 100.2200, L505.5000, L7000.1800 #### [facility] [address] [place], [address] MCV (RBC) [Entitic vol] 93.4 fL Normal 81-99 [facility] Comment on above: Performed By: #### M 100.2200, L505.5000, L7000.1800 #### [facility] [address] [place], [address] Monocytes/100 WBC (Bld) 6.0 % Normal 0-10 [facility] Comment on above: Performed By: #### M 100.2200, L505.5000, L7000.1800 #### [facility] [address] [place], [address] Neutrophils/100 WBC (Bld) 73.5 % High 47-70 [facility] Comment on above: Performed By: #### M 100.2200, L505.5000, L7000.1800 #### [facility] [address] [place], [address] Nucleated RBC (Bld) [#/Vol] 0 10*3/uL Normal 0-5 [facility] Comment on above: Performed By: #### M 100.2200, L505.5000, L7000.1800 #### [facility] [address] [place], [address] Platelet mean volume (Bld) [Entitic vol] 10.1 fL Normal 6.2-12.0 [facility] Comment on above: Performed By: #### M 100.2200, L505.5000, L7000.1800 #### [facility] [address] [place], [address] Platelets (Bld) [#/Vol] 237 10*3/uL Normal 150-450 [facility] Comment on above: Performed By: #### M 100.2200, L505.5000, L7000.1800 #### [facility] [address] [place], [address] RBC (Bld) [#/Vol] 3.61 10*6/uL Low 4.2-5.[address] [facility] Comment on above: Performed By: #### M 100.2200, L505.5000, L7000.1800 #### [facility] [address] [place], [address] RDW SD 43.9 fl Normal 35.1-43.9 [facility] Comment on above: Performed By: #### M 100.2200, L505.5000, L7000.1800 #### [facility] [address] [place], [address] WBC (Bld) [#/Vol] 10.3 10*3/uL Normal 4.4-11.[address] [facility] Comment on above: Performed By: #### M 100.2200, L505.5000, L7000.1800 #### [facility] [address] [place], [address] Eosinophil percentageOrdered By: Meena Luciano on 05-02-2024 Eosinophils/100 WBC (Bld) 0.7 % 0-5 [facility] Erythrocyte distribution wid th ratioOrdered By: Meena Luciano on 05-02-2024 Erythrocyte distribution width (RBC) [Ratio] 12.9 % 11.6-14.6 [facility] Erythrocyte distribution wid th standard deviationOrdered By: Meena Luciano on 05-02-2024 Erythrocyte distribution width (RBC) [Entitic vol] 43.9 fL 35.1-43.9 [facility] Erythrocyte distribution width (RBC) [Ratio] 43.9 fl 35.1-43.9 [facility] Fibrinogenon 05-02-2024 FIBRINOGEN 366 mg/dl Normal -4 [facility] Comment on above: Performed By: #### M 100.2200, L505.5000, L7000.1800 #### [facility] [address] [place], [address] Fibrinogen measurementOrdere d By: Meena Luciano on 05-02-2024 Fibrinogen 366 mg/dl -44 [facility] Hematocrit Auto (Bld) [Volum e fraction]Ordered By: Meena Luciano on 05-02-2024 Hematocrit (Bld) [Volume fraction] 33.7 % Low 37-47 [facility] Hemoglobin measurementOrdere d By: Meena Luciano on 05-02-2024 Hemoglobin (Bld) [Mass/Vol] 11.6 g/dL Low 12.0-15.0 [facility] Immature granulocytes/100 WB C Auto (Bld)Ordered By: Meena Luciano on 05-02-2024 Immature granulocytes/100 WBC (Bld) 0.700 % 0.0-0.9 [facility] Comment on above: IG% - Immature Granu locytes (promyelocytes, myelocytes and metamyelocytes) > 1% indicates that a LEFT SHIFT is Present. Lymphocytes Auto (Unsp spec) [#/Vol]Ordered By: Meena Luciano on 05-02-2024 Lymphocytes (Bld) [#/Vol] 1.92 10*3/uL 0.83-4.51 [facility] Lymphocytes/100 WBC Auto (Un sp spec)Ordered By: Meena Luciano on 05-02-2024 Lymphocytes/100 WBC (Bld) 18.6 % Low 19-41 [facility] MCV (mean corpuscular volume ) determinationOrdered By: Meena Luciano on 05-02-2024 MCV (RBC) [Entitic vol] 93.4 fL 81-99 [facility] Mean corpuscular hemoglobin (MCH) determinationOrdered By: Meena Luciano on 05-02-2024 MCH (RBC) [Entitic mass] 32.1 pg High 27.0-32.0 [facility] Mean corpuscular hemoglobin concentration (MCHC) determinationOrdered By: Meena Luciano on 05-02-2024 MCHC (RBC) [Mass/Vol] 34.4 g/dL 32-36 [facility] Mean platelet volume determi nationOrdered By: Meena Luciano on 05-02-2024 Platelet mean volume (Bld) [Entitic vol] 10.1 fL 6.2-12.0 [facility] Monocyte percentageOrdered B y: Meena Luciano on 05-02-2024 Monocytes/100 WBC (Bld) 6.0 % 0-10 [facility] Neutrophil percentageOrdered By: Meena Luciano on 05-02-2024 Neutrophils/100 WBC (Bld) 73.5 % High 47-70 [facility] Nucleated red blood cell per centageOrdered By: Meena Luciano on 05-02-2024 Nucleated RBC/100 WBC (Bld) [Ratio] 0 % 0-5 [facility] OB Triage Progress Noteon OB Triage Progress Note [facility] Medical Records Department [address] [place] [address] OB Triage Progress Note 05/02/24 1105 MR#: [id number] Acct: [id number] Name: DAVID POST Rep #: [id number] : 1990 33 From: Meena Luciano MD PCP: Care Physician,No Primary Status:DEP CLI Y DOS: Location: [facility]OUT Progress Notes Date of Service: 05/02/24 Progress Note: Patient presents for triage evaluation secondary to fall FHT: 140 Moderate variability reactive isolated variable, no significant decelerations category I tracing [place]: no regular Contractions Assessment and plan: abdominal trauma, monitored and reassuring nl cbc and fibrinogen Reactive NST, reassuring maternal and status patient discharged to home to follow-up as scheduled. See problem list details for additional plan information. Charges/Coding Procedures Urinary/Genital 52xxx-59xxx: 31175-67 non-stress test Interp 05/03/24309 Date Meena Luciano MD Cosigner Signature (if applicable): Date CC: Dr. Meena Luciano MD; No Primary Care Physician Signed ADDENDUM by Dr. Meena Luciano MD on 05/03/24 at 0310 Addendum 24 weeks 05/03/24309 Date Meena Luciano MD cc: Dr. Meena Luciano MD; No Primary Care Physician * Signed Normal [facility] Platelet countOrdered By: Janell Luciano on 05-02-2024 Platelets (Bld) [#/Vol] 237 10*3/uL 150-450 [facility] RBC Auto (Bld) [#/Vol]Ordere d By: Meena Luciano on 05-02-2024 RBC (Bld) [#/Vol] 3.61 10*6/uL Low 4.2-5.[address] [facility] White blood cell (WBC) count Ordered By: Meena Luciano on 05-02-2024 WBC (Bld) [#/Vol] 10.3 10*3/uL 4.4-11.[address] [facility] CNOVon 04-25-2024 [facility] DAVID POST ([id number]) 1990 F Date Time Provider Department 04/25/24 5:00 PM NICOLÁS MALIK [facility] During your visit today, we recorded the following information about you: Temperature Pulse Respiration Blood pressure 97.7 degrees 71/minute 20/minute 100/62 Weight 81 kg Nicolás Malik APRN.DIRECTOR OF SOCIAL WORK 04/25/2024 4:54 PM Signed Subjective HPI Nontoxic-appearing 24-week 33-year-old female presents urgent care chief complaint new onset right ear pain. Duration of symptoms 1 day. Associated symptoms right ear pain muffled hearing. Recently had a flulike illness. Those symptoms did improve. Ear pain is new. No ear trauma loss of hearing or otorrhea. Tylenol for pain management this helped. No fevers. Past medical history prescription medications allergies reviewed. .Patient presents with: Ear Pain: R ear pain, down into jaw, loss of hearing x 1 day History reviewed. No pertinent past medical history. PAST SURGICAL HISTORY Procedure Laterality Date NONE ALLERGIES Patient has no known allergies. MEDICATIONS nicotine (NICODERM) 7 mg/24 hr 1 patch transdermally every 24 hours no115/iron/folic acid ( 19 ORAL) Take 1 tablet by mouth once daily. therapeutic multivitamin-minerals (THERAPY M) 9 mg iron-400 mcg tablet Take 2 tablets by mouth once daily. amoxicillin (AMOXIL) 875 mg tablet Take 1 tablet by mouth two times a day for 7 days. fluticasone (FLONASE ALLERGY RELIEF) 50 mcg/actuation nasal spray Use 1 [place] in each nostril once daily. (Patient not taking: Reported on 04/25/2024) FAMILY HISTORY Adopted: Yes Social History Tobacco Use Smoking status: Every Day Types: Cigarettes Smokeless tobacco: Never Tobacco comments: 4-5 a day Vaping Use Vaping status: Never Used Substance Use Topics Alcohol use: Yes Drug use: Yes Types: Marijuana BP 100/62 Pulse 71 Temp 36.5 ?C (97.7 ?F) Resp 20 Wt 81 kg (178 lb 9.2 oz) LMP (LMP Unknown) SpO2 99% BMI (P) 30.86 kg/m? Review of Systems Constitutional: Negative for chills, fever and malaise/fatigue. HENT: Positive for congestion and ear pain. Negative for ear discharge, sinus pain and sore throat. Eyes: Negative for blurred vision, pain, discharge and redness. Respiratory: Negative for cough, hemoptysis, sputum production, shortness of breath, wheezing and stridor. Cardiovascular: Negative for chest pain. Gastrointestinal: Negative for abdominal pain, diarrhea, nausea and vomiting. Musculoskeletal: Negative for myalgias. Skin: Negative for itching and rash. Neurological: Negative for dizziness and headaches. Objective Physical Exam Constitutional: General: She is not in acute distress. Appearance: She is not diaphoretic. HENT: Head: Normocephalic. Jaw: No trismus, tenderness, swelling or pain on movement. Right Ear: Ear canal and external ear normal. Decreased hearing noted. Tympanic membrane is erythematous and bulging. Left Ear: Hearing, tympanic membrane, ear canal and external ear normal. Nose: Congestion present. Mouth/Throat: Mouth: Mucous membranes are moist. Pharynx: Oropharynx is clear. Uvula midline. No pharyngeal swelling, oropharyngeal exudate, posterior oropharyngeal erythema or uvula swelling. Eyes: Conjunctiva/sclera: Conjunctivae normal. Pupils: Pupils are equal, round, and reactive to light. Cardiovascular: Rate and Rhythm: Normal rate and regular rhythm. Heart sounds: Normal heart sounds. Pulmonary: Effort: Pulmonary effort is normal. No tachypnea, accessory muscle usage or respiratory distress. Breath sounds: Normal breath sounds. No stridor. No wheezing, rhonchi or rales. Abdominal: General: There is no distension. Palpations: Abdomen is soft. Tenderness: There is no abdominal tenderness. There is no guarding or rebound. Musculoskeletal: Cervical back: Normal range of motion and neck supple. No edema, erythema, rigidity or tenderness. No pain with movement. Normal range of motion. Lymphadenopathy: Cervical: No cervical adenopathy. Skin: General: Skin is warm and dry. Neurological: Mental Status: She is alert and oriented to person, place, and time. ASSESSMENT/PLAN: 1. Acute otitis media, right - ICD9: 382.9, ICD10: H66.91 Diagnosed otitis media right ear. Placed on amoxicillin. Patient was educated on supportive therapies. Patient will follow up with primary care provider as needed. Patient was instructed to immediately proceed to emergency room for any new, worsening, or symptoms lasting longer than anticipated. The patient's clinical presentation is otherwise unremarkable at this time. Based on exam and clinical finding, the patient is stable for discharge. Plan of care was discussed with patient. Patient verbalizes understanding and agrees to plan of care. This note was generated using (more content not included)... Normal [facility] - Chemistry and C hemistry - challengeOrdered By: Mary Joya on 04-15-2024 Glucose Ql (U) Negative [facility] Laboratory - UrinalysisOrder ed By: Mary Joya on 04-15-2024 Protein Ql (U) Negative [facility] Otolaryngologist Office Visit Reporton 04-15-2024 Otolaryngologist Office Visit Report [address], [address] [place] [address] OFFICE VISIT Date of Service: 04/15/24 MR#: [id number] Acct: [id number] Name: DAVID POST Rep #: [id number] : 1990 Provider: PATRICA rangel Age/Sex: 33/F Location: [facility] Status: Signed Intake Vital Signs 02/23/24 09:41 03/22/24 14:56 04/15/24 15:46 Height 5 ft 3 in 5 ft 3 in 5 ft 3 in Weight: 176 lb 6 oz BMI 31.2 BP 98/64 Intake Visit Reasons: 22 wk ob Chief Complaint: 22 Week OB Documentation Clerk Required: No Is patient in pain?: No Allergies bee venom protein (honey bee) (bee sting) Allergy (Verified 04/15/24 15:45) Hives Medications ???Medication ???Instructions ???Recorded ???Confirmed ???Type multivitamin no.47-iron fum 27 cap PO 09/02/22 04/15/24 History mg-folate no.1 1 mg-dha 300 mg capsule (PNV-DHA) buspirone 10 mg tablet 5 mg PO BID 12/21/23 04/15/24 Hist ory ferrous gluconate 240 mg (27 mg 240 mg PO QDAY 12/21/23 04/15/24 H istory iron) tablet (Ferate) nicotine 7 mg/24 hr daily 1 patch transdermal Q24H #14 ea 04/15/24 Rx transdermal patch Last Menstrual Period: 09/28/23 Zika: Zika virus screening: Negative : No PFSH PFSH Medical History Uterine anomaly Trauma Anxiety History of asthma History of back pain history of knee pain History of anemia Social History adopted: Yes household members: significant other, children and other details: JOSELYN Luciano (has two kids Ryan Khan lives with his mom) [place]- [place] housing: house number of children: 2 current occupational status: other current occupation: [employer] current occupational exposures/hazards: No pets and animals: Yes (not managing litter box) pets and animals: cat(s) leisure activities: exercise history of recent travel: No sexually active: Yes Smoking Status: Former smoker quit date: 03/13/22 Tobacco: How many years used: 8 quit status: quit date established alcohol intake: never substance use type: marijuana and other details: last Oct 2022, counseling provided. Pt agreeable to drug testing well-balanced diet: daily or most days eating out: rarely or never during the past year weight has: decreased > 10 lbs what type of physical activity do you participate in: walking frequency: 1-2 times per week yesenia/taoist: None seatbelt use: always do you feel safe at home: Yes additional social history: [facility] History 2 Elective abortions Hx Para 1 Spontaneous abortions Hx # Term Pregnancies 1 Ectopic pregnancies Hx # Pregnancies Multiple births # of living children 1 Past Pregnancies Del. Date Name GA/Weeks Outcome Route Bth Weight Gen Labor Lgth Anesthesia Del Locatn Provider FOB 04/29/23 Jason 39 live - full term 6lbs 12oz Male [facility] Mustapha Luciano Delivery Date: 04/29/23 Last Updated by: Dee Dee Dejesus [facility] nrfhts HPI 22 wk ob Details: DAVID POST is a 33 year old who presents for routine OB visit. OB Visit MANUEL Calculator Estimated Delivery Date Method Current WG Current Estimate 08/21/24 Ultrasound #1 21w 5d Other Estimates 07/04/24 LMP (Uncertain) 28w 4d 08/18/24 Ultrasound #2 22w 1d Expected Delivery Route/Plan R C/S with Specific Issue/Plans Covid status: [] Flu vaccine: [] Tdap vaccine: [] Rhogam: [] LARC form signed: [] Problem list reviewed and updated with the most current plan of care details and appropriate orders placed. Relevant counseling for the gestational age provided. Continue routine care and follow up unless otherwise noted in visit notes/problem list details Initial Weight: 181 lb Date -???-???-???-???-???-?? ?-???-???-???-???-???-? ??- EGA Weight BP Urine Prot -???-???-???-???-???-?? ?-???-???-???-???-???-? ??- Glucose FHR FuHt Pres Dilation -???-???-???-???-???-?? ?-???-???-???-???-???-? ??- Effaced St Visit Note 12/21/23 -???-???-???-???-???-?? ?-???-???-???-???-???-? ??- 5w 1d 181 lb 8 oz (+8 oz) 110/70 -???-???-???-???-???-?? ?-???-???-???-???-???-? ??- -???-???-???-???-???-?? ?-???-???-???-???-???-? ??- KW- [facility] not cons with dates. SM assisted with scan. measuring 5.1 weeks. plan for hcgs and repeat US next week. 02/23/24 -???-???-???-???-???-?? ?-???-???-???-???-???-? ??- 14w 2d 173 lb (-8 lb) 119/72 Negative -???-???-???-???-???-?? ?-???-???-???-???-???-? ??- Negative 147 -???-???-???-???-???-?? ?-???-???-???-???-???-? ??- JDesiree- pt was a bsent for a weeks due to insurance loss. She states that they have insurance now . new ob lab and NIPT ordered. unsure ab (more content not included)... Normal [facility] CNOVon 04-12-2024 CNOV Office Visit ([facility] ) DAVID POST ([id number]) 1990 F Date Time Provider Department 04/12/24 4:00 PM SHANNON NEWTON [facility] During your visit today, we recorded the following information about you: Temperature Pulse Respiration Blood pressure 98.6 degrees 79/minute 18/minute 106/66 Weight 80.2 kg Shannon Newton APRN.DIRECTOR OF SOCIAL WORK 04/12/2024 4:06 PM Signed CC: Patient presents with: Head Congestion: Sinus congestion, cough, [place], fever x4 days HPI: David Post is a 33 year old female who presents to the office with complaint of head congestion, cough, nonproductive, and fever for 4 days. Symptoms are worsening Associated symptoms includes cough. Denies wheezing, dyspnea, nausea, vomiting , and diarrhea. Treatments tried include nothing so far. with no relief of symptoms. Sick contacts: unknown. History of asthma, frequent episodes of bronchitis, chronic bronchitis, bronchiectasis or COPD: No Smoker: No Seasonal/environmental allergies: No The ROS is otherwise negative. The patient's pmh, medications, allergies, and past visits are reviewed. PHYSICAL EXAM: BP 106/66 Pulse 79 Temp 37 ?C (98.6 ?F) Resp 18 Wt 80.2 kg (176 lb 12.9 oz) LMP (LMP Unknown) SpO2 98% BMI (P) 30.56 kg/m? General appearance: alert, cooperative, pleasant, in no acute distress Head: Normocephalic Eyes: EOM's intact, conjunctiva pink and moist, no icterus, sclera white, non-injected Ears: Right ear: External ear/canal- Normal, TM - clear with good landmarks. Left ear: External ear/canal- Normal, TM - clear with good landmarks Oropharynx:moist without lesions, No erythema, exudates or tonsillar hypertrophy. Heart: Negative. RRR without obvious murmur, gallop, or rubs. No ectopy. Lungs: clear to auscultation, without rales or wheeze, good air exchange No past medical history on file. PAST SURGICAL HISTORY Procedure Laterality Date NONE ALLERGIES Patient has no known allergies. MEDICATIONS nicotine (NICODERM) 7 mg/24 hr 1 patch transdermally every 24 hours no115/iron/folic acid ( 19 ORAL) Take 1 tablet by mouth once daily. fluticasone (FLONASE ALLERGY RELIEF) 50 mcg/actuation nasal spray Use 1 [place] in each nostril once daily. therapeutic multivitamin-minerals (THERAPY M) 9 mg iron-400 mcg tablet Take 2 tablets by mouth once daily. FAMILY HISTORY Adopted: Yes Social History Tobacco Use Smoking status: Every Day Types: Cigarettes Smokeless tobacco: Never Tobacco comments: 4-5 a day Vaping Use Vaping status: Never Used Substance Use Topics Alcohol use: Yes Drug use: Yes Types: Marijuana ASSESSMENT/PLAN: 1. URI, acute - ICD9: 465.9, ICD10: J06.9 Viral at this time. No swabs. . Potential red flag symptoms discussed with the patient. Reviewed appropriate action plan to take if red flag symptoms occur. Patient agreeable to treatment plan. Shannon Newton APRN.Shannon Hickey APRN.CNP 04/12/2024 4:02 PM Signed RESPIRATORY INFECTION GENERAL INFORMATION: An upper respiratory tract infection, or cold, is a viral infection of the airway passages. It can be caused by any one of almost 200 different viruses. Common symptoms include a runny or stuffy nose, sneezing, watery eyes, sore throat, cough, and slight fever. Colds are contagious, especially during the first 3 or 4 days and cannot be cured by antibiotics. They are spread by coughs, sneezes, and direct contact, especially [id number]. A respiratory tract infection usually clears up in a few days, but some people may be sick for a week or two. INSTRUCTIONS: 1. Be careful not to blow your nose too hard because this may cause a nosebleed. 2. Use a cool-mist humidifier (vaporizer) to increase air moisture. This will make it easier for you to breathe. Do not use hot steam. 3. Rest as much as possible and get plenty of sleep. 4. Wash your hands often, especially after you blow your nose. Cover your mouth and nose with a tissue when you sneeze or cough. 5. Drink plenty of clear fluids (8 glasses a day) such as water, fruit juice, tea, clear soups, and carbonated beverages. CONTACT YOUR DOCTOR IF : 1. Your fever lasts more than 3 days. 2. You have a sore throat that gets worse or you see white or yellow spots in your throat. 3. Your cough gets worse or lasts more than 10 days. 4. You develop a rash anywhere on your skin. 5. You have an earache or a headache. 6. You have thick greenish or yellowish discharge from your nose. RETURN IMMEDIATELY IF: 1. You cough up thick yellow, green, reyna, or bloody sputum. 2. You have difficulty breathing, pain in your chest, or your skin or nails look reyna or blue. 3. You have shaking chills or a temperature over 102 F (39 C). Allergies As of Date: 04/12/2024 (No Known Allergies) Date Reviewed: 04/12/2024 Reviewed by: Arin Nguyen MA - Fully (more content not included)... Normal [facility] Laboratory - Chemistry and C hemistry - challengeon 03-22-2024 Glucose Ql (U) Negative [facility] Laboratory - Urinalysison Protein Ql (U) Negative [facility] Otolaryngologist Office Visit Reporton 03-22-2024 Otolaryngologist Office Visit Report [address], [address] [place] [address] OFFICE VISIT Date of Service: 03/22/24 MR#: [id number] Acct: [id number] Name: DAVID POST Rep #: [id number] 1 : 1990 Provider: Dr. Meena amezquita MD Age/Sex: 33/F [place] [facility] [place] Status: Signed Intake Vital Signs 02/23/24 09:41 03/22/24 14:56 Height 5 ft 3 in 5 ft 3 in Weight: 175 lb BMI 30.9 BP 108/67 Intake Visit Reasons: 18 wk ob Documentation Clerk Required: No Is patient in pain?: No Feel stressed/tense/nervous/ anxious/difficulty sleeping: not at all Allergies bee venom protein (honey bee) (bee sting) Allergy (Verified 03/22/24 14:57) Hives Medications ???Medication ???Instructions ???Recorded ???Confirmed ???Type multivitamin no.47-iron fum 27 cap PO 09/02/22 03/22/24 History mg-folate no.1 1 mg-dha 300 mg capsule (PNV-DHA) buspirone 10 mg tablet 5 mg PO BID 12/21/23 03/22/24 History cephalexin 500 mg capsule 500 mg PO BID #14 caps 12/21/23 03/22/24 Rx ferrous gluconate 240 mg (27 mg 240 mg PO QDAY 12/21/23 03/22/24 History iron) tablet (Ferate) nicotine 7 mg/24 hr daily 1 patch transdermal Q24H #14 ea 03/22/24 03/22/24 Rx transdermal patch Last Menstrual Period: 09/28/23 Zika: Zika virus screening: Negative : No Have you fallen in the past year?: No PFSH PFSH Medical History Uterine anomaly Trauma Anxiety History of asthma History of back pain history of knee pain History of anemia Social History adopted: Yes household members: significant other, children and other details: JOSELYN Luciano (has two kids Ryan Khan lives with his mom) [facility] housing: house number of children: 2 current occupational status: other current occupation: [employer] current occupational exposures/hazards: No pets and animals: Yes (not managing litter box) pets and animals: cat(s) leisure activities: exercise history of recent travel: No sexually active: Yes Smoking Status: Former smoker quit date: 03/13/22 Tobacco: How many years used: 8 quit status: quit date established alcohol intake: never substance use type: marijuana and other details: last Oct 2022, counseling provided. Pt agreeable to drug testing well-balanced diet: daily or most days eating out: rarely or never during the past year weight has: decreased > 10 lbs what type of physical activity do you participate in: walking frequency: 1-2 times per week yesenia/taoist: None seatbelt use: always do you feel safe at home: Yes additional social history: - [place]- [employer] [facility] History 2 Elective abortions Hx Para 1 Spontaneous abortions Hx # Term Pregnancies 1 Ectopic pregnancies Hx # Pregnancies Multiple births # of living children 1 Past Pregnancies Del. Date Name GA/Weeks Outcome Route Bth Weight Infant Gen Labor Lgth Anesthesia Del Locatn Provider FOB 04/29/23 Jason 39 live - full term 6lbs 12oz Male [facility] Mustapha Luciano Delivery Date: 04/29/23 Last Updated by: Dee Dee Dejesus [facility] nrfhts HPI 18 wk ob Details: DAVID POST is a 33 year old who presents for routine OB visit. OB Visit MANUEL Calculator Estimated Delivery Date Method Current WG Current Estimate 08/21/24 Ultrasound #1 18w 4d Other Estimates 07/04/24 LMP (Uncertain) 25w 3d 08/18/24 Ultrasound #2 19w 0d Expected Delivery Route/Plan R C/S with Specific Issue/Plans Covid status: [] Flu vaccine: [] Tdap vaccine: [] Rhogam: [] LARC form signed: [] Problem list reviewed and updated with the most current plan of care details and appropriate orders placed. Relevant counseling for the gestational age provided. Continue routine care and follow up unless otherwise noted in visit notes/problem list details Initial Weight: 181 lb Date -???-???-???-???-???-?? ?-???-???-???-???-???-? ??- EGA Weight BP Urine Prot -???-???-???-???-???-?? ?-???-???-???-???-???-? ??- Glucose FHR FuHt Pres Dilation -???-???-???-???-???-?? ?-???-???-???-???-???-? ??- Effaced St Visit Note 12/21/23 -???-???-???-???-???-?? ?-???-???-???-???-???-? ??- 5w 1d 181 lb 8 oz (+8 oz) 110/70 -???-???-???-???-???-?? ?-???-???-???-???-???-? ??- -???-???-???-???-???-?? ?-???-???-???-???-???-? ??- KW- CRL not cons with dates. SM assisted with scan. measuring 5.1 weeks. plan for hcgs and repeat US next week. 02/23/24 -???-???-???-???-???-?? ?-???-???-???-???-???-? ??- 14w 2d 173 lb (-8 lb) 119/72 Negative -???-???-???-???-???-?? ?-???-???-???-???-???-? ??- Negative 147 -???-???-???-???-???-?? ?-???-???-???-???-???-? ??- JV- pt was a bsent fo (more content not included)... Normal [facility] HIV - WCHon 02-26-2024 HIV Non-Reactive Normal Nonreactive [facility] Comment on above: Order Comment: Reaso n for Exam: Performed By: #### M 100.2200, L505.5000, L7000.1800 #### [facility] [address] [place], [place], [id number] Hepatitis B Surface Antigeno n 02-26-2024 HEP B Surf Ag Non-Reactive Normal Nonreactive [facility] Comment on above: Order Comment: Reaso n for Exam: Performed By: #### M 100.2200, L505.5000, L7000.1800 #### [facility] [address], [address] Hepatitis C Antibodyon 02-25 Hepatitis C AB Non-Reactive Normal Nonreactive [facility] Comment on above: Order Comment: Reaso n for Exam: Result Comment: Non Reactive: < 0.8 Equivocal: >/= 0.8 to < 1.0 Reactive: >/= 1.0 The [facility] requires that a reactive/equivocal HCV antibody result be sent out for confirmation. HCV Quant by PCR testing. Performed By: #### M 100.2200, L505.5000, L7000.1800 #### [facility] [address] [place], [address] L509.8000on 02-26-2024 Syphilis Abs Non-Reactive Normal [facility] Comment on above: Order Comment: Reaso n for Exam: Performed By: #### M 100.2200, L505.5000, L7000.1800 #### [facility] [address] [place], [address] Rubella IgGon 02-26-2024 Rubella IgG Reactive Normal Nonreactive [facility] Comment on above: Order Comment: Reaso n for Exam: Result Comment: Anti body Results Interpretation of Immune Status Non Reactive Presumed Non-Immune Equivocal Equivocal Reactive Presumed Immune Performed By: #### M 100.2200, L505.5000, L7000.1800 #### [facility] [address] [facility] [place], [address] Absolute neutrophil countOrd ered By: nAna Marin on 02-23-2024 Neutrophils (Bld) [#/Vol] 4.9 10*3/uL 2.0-7.7 [facility] Basophil percentageOrdered B y: Anna Marin on 02-23-2024 Basophils/100 WBC (Bld) 0.7 % 0-1 [facility] CBC W/Diff, Automatedon 02-10-2023 Absolute Lymph 1.73 X10 3/uL Normal 0.83-4.51 [facility] Comment on above: Performed By: #### M 100.2200, L505.5000, L7000.1800 #### [facility] [address] [place], [address] Absolute Neut 4.9 X10 3/uL Normal 2.0-7.7 [facility] Comment on above: Performed By: #### M 100.2200, L505.5000, L7000.1800 #### [facility] [address] [place], [address] Basophils/100 WBC (Bld) 0.7 % Normal 0-1 [facility] Comment on above: Performed By: #### M 100.2200, L505.5000, L7000.1800 #### [facility] [address] [place], [address] Eosinophils/100 WBC (Bld) 2.8 % Normal 0-5 [facility] Comment on above: Performed By: #### M 100.2200, L505.5000, L7000.1800 #### [facility] [address] [place], [address] Erythrocyte distribution width (RBC) [Ratio] 12.7 % Normal 11.6-14.6 [facility] Comment on above: Performed By: #### M 100.2200, L505.5000, L7000.1800 #### [facility] [address] [place], [address] Hematocrit (Bld) [Volume fraction] 36.1 % Low 37-47 [facility] Comment on above: Performed By: #### M 100.2200, L505.5000, L7000.1800 #### [facility] [address] [place], [address] Hemoglobin (Bld) [Mass/Vol] 12.9 g/dL Normal 12.0-15.0 [facility] Comment on above: Performed By: #### M 100.2200, L505.5000, L7000.1800 #### [facility] [address] [place], [address] IG% 0.300 Normal 0.0-0.9 [facility] Comment on above: Result Comment: IG% - Immature Granulocytes (promyelocytes, myelocytes and metamyelocytes) > 1% indicates that a LEFT SHIFT is Present. Performed By: #### M 100.2200, L505.5000, L7000.1800 #### [facility] [address] [place], [address] Lymphocytes/100 WBC (Bld) 23.1 % Normal 19-41 [facility] Comment on above: Performed By: #### M 100.2200, L505.5000, L7000.1800 #### [facility] [address] [place], [address] MCH (RBC) [Entitic mass] 31.6 pg Normal 27.0-32.0 [facility] Comment on above: Performed By: #### M 100.2200, L505.5000, L7000.1800 #### [facility] [address] [place], [address] MCHC (RBC) [Mass/Vol] 35.7 g/dL Normal 32-36 [facility] Comment on above: Performed By: #### M 100.2200, L505.5000, L7000.1800 #### [facility] [address] [place], [address] MCV (RBC) [Entitic vol] 88.5 fL Normal 81-99 [facility] Comment on above: Performed By: #### M 100.2200, L505.5000, L7000.1800 #### [facility] [address] [place], [address] Monocytes/100 WBC (Bld) 7.5 % Normal 0-10 [facility] Comment on above: Performed By: #### M 100.2200, L505.5000, L7000.1800 #### [facility] [address] [place], [address] Neutrophils/100 WBC (Bld) 65.6 % Normal 47-70 [facility] Comment on above: Performed By: #### M 100.2200, L505.5000, L7000.1800 #### [facility] [address] [place], [address] Nucleated RBC (Bld) [#/Vol] 0 10*3/uL Normal 0-5 [facility] Comment on above: Performed By: #### M 100.2200, L505.5000, L7000.1800 #### [facility] [address] [place], [address] Platelet mean volume (Bld) [Entitic vol] 10.8 fL Normal 6.2-12.0 [facility] Comment on above: Performed By: #### M 100.2200, L505.5000, L7000.1800 #### [facility] [address] [place], [address] Platelets (Bld) [#/Vol] 250 10*3/uL Normal 150-450 [facility] Comment on above: Performed By: #### M 100.2200, L505.5000, L7000.1800 #### [facility] [address] [place], [address] RBC (Bld) [#/Vol] 4.08 10*6/uL Low 4.2-5.[address] [facility] Comment on above: Performed By: #### M 100.2200, L505.5000, L7000.1800 #### [facility] [address] [place], [address] RDW SD 41.0 fl Normal 35.1-43.9 [facility] Comment on above: Performed By: #### M 100.2200, L505.5000, L7000.1800 #### [facility] [address] [place], [address] WBC (Bld) [#/Vol] 7.5 10*3/uL Normal 4.4-11.0 [facility] Comment on above: Performed By: #### M 100.2200, L505.5000, L7000.1800 #### [facility] [address] [place], [address] Eosinophil percentageOrdered By: Anna Marin on 02-23-2024 Eosinophils/100 WBC (Bld) 2.8 % 0-5 [facility] Erythrocyte distribution wid th ratioOrdered By: Anna Marin on 02-23-2024 Erythrocyte distribution width (RBC) [Ratio] 12.7 % 11.6-14.6 [facility] Erythrocyte distribution wid th standard deviationOrdered By: Anna Marin on 02-23-2024 Erythrocyte distribution width (RBC) [Entitic vol] 41.0 fL 35.1-43.9 [facility] HIV 1+2 Ab+HIV1 p24 Ag IA Ql Ordered By: Anna Marin on 02-23-2024 HIV (1&2) Antibody Non-Reactive Nonreactive [facility] Hematocrit Auto (Bld) [Volum e fraction]Ordered By: Anna Marin on 02-23-2024 Hematocrit (Bld) [Volume fraction] 36.1 % Low 37-47 [facility] Hemoglobin A1con 02-23-2024 HbA1c (Bld) [Mass fraction] 4.9 % Normal 3.8-5.6 [facility] Comment on above: Result Comment: Norm al < 5.7 % Prediabetic 5.7 - 6.4 % Diabetic >or= 6.5 % Please note range changes. Performed By: #### M 100.2200, L505.5000, L7000.1800 #### [facility] [address] [place], [address] Hemoglobin A1c percentageOrd ered By: Anna Marin on 02-23-2024 HbA1c (Bld) [Mass fraction] 4.9 % 3.8-5.6 [facility] Comment on above: Normal < 5.7 % Predi abetic 5.7 - 6.4 % Diabetic >or= 6.5 % Please note range changes. Hemoglobin measurementOrdere d By: Anna Marin on 02-23-2024 Hemoglobin (Bld) [Mass/Vol] 12.9 g/dL 12.0-15.0 [facility] Hepatitis B surface antigen detectionOrdered By: Anna Marin on 02-23-2024 Hepatitis B Surface Antigen Non-Reactive Nonreactive [facility] Hepatitis C virus antibody a ssayOrdered By: Anna Marin on 02-23-2024 Hepatitis C Antibody Non-Reactive Nonreactive [facility] Comment on above: Non Reactive: < 0.8 Equivocal: >/= 0.8 to < 1.0 Reactive: >/= 1.0The CDC requires that a reactive/equivocal HCV antibody result be sent out for confirmation. HCV Quant by PCR testing. Immature granulocytes/100 WB C Auto (Bld)Ordered By: Anna Marin on 02-23-2024 Immature granulocytes/100 WBC (Bld) 0.300 % 0.0-0.9 [facility] Comment on above: IG% - Immature Granu locytes (promyelocytes, myelocytes and metamyelocytes) > 1% indicates that a LEFT SHIFT is Present. Laboratory - Chemistry and C hemistry - challengeon 02-23-2024 Glucose Ql (U) Negative [facility] Laboratory - Urinalysison Protein Ql (U) Negative [facility] Lymphocytes Auto (Unsp spec) [#/Vol]Ordered By: Anna Marin on 02-23-2024 Lymphocytes (Bld) [#/Vol] 1.73 10*3/uL 0.83-4.51 [facility] Lymphocytes/100 WBC Auto (Un sp spec)Ordered By: Anna Marin on 02-23-2024 Lymphocytes/100 WBC (Bld) 23.1 % 19-41 [facility] MCV (mean corpuscular volume ) determinationOrdered By: Anna Marin on 02-23-2024 MCV (RBC) [Entitic vol] 88.5 fL 81-[address] [facility] Mean corpuscular hemoglobin (MCH) determinationOrdered By: Anna Marin on 02-23-2024 MCH (RBC) [Entitic mass] 31.6 pg 27.0-32.0 [facility] Mean corpuscular hemoglobin concentration (MCHC) determinationOrdered By: Anna Marin on 02-23-2024 MCHC (RBC) [Mass/Vol] 35.7 g/dL 32-36 [facility] Mean platelet volume determi nationOrdered By: Anna Marin on 02-23-2024 Platelet mean volume (Bld) [Entitic vol] 10.8 fL 6.2-12.0 [facility] Miscellaneous procedureOrder ed By: Anna Marin on 02-23-2024 Miscellaneous Test Comment SEE SCANNED REPORT [facility] Monocyte percentageOrdered B y: Anna Marin on 02-23-2024 Monocytes/100 WBC (Bld) 7.5 % 0-10 [facility] NATERAon 02-23-2024 NATURA SEE SCANNED REPORT Normal [facility] Comment on above: Performed By: #### M 100.2200, L505.5000, L7000.1800 #### [facility] [address] [place], [address] Neutrophil percentageOrdered By: Anna Marin on 02-23-2024 Neutrophils/100 WBC (Bld) 65.6 % 47-70 [facility] Nucleated red blood cell per centageOrdered By: Anna Marin on 02-23-2024 Nucleated RBC/100 WBC (Bld) [Ratio] 0 % 0-5 [facility] Otolaryngologist Office Visit Reporton 02-23-2024 Otolaryngologist Office Visit Report [facility] [address], [address] [place] [address] OFFICE VISIT Date of Service: 02/23/24 MR#: [id number] Acct: [id number] Name: SINCEREDAVID LÓPEZ Rep #: [id number] 5 : 1990 Provider: Dr. Katelin Sotelo DO Age/Sex: 33/F [place] [facility] [place] Status: Signed Intake Vital Signs 12/21/23 14:37 02/23/24 09:39 02/23/24 09:41 Height 5 ft 3 in 5 ft 3 in 5 ft 3 in Weight: 173 lb BMI 30.6 BP 119/72 Intake Visit Reasons: 14wk OB Documentation Clerk Required: No Is patient in pain?: No Allergies bee venom protein (honey bee) (bee sting) Allergy (Verified 02/23/24 09:39) Hives Medications ???Medication ???Instructions ???Recorded ???Confirmed ???Type multivitamin no.47-iron fum 27 cap PO 09/02/22 02/23/24 History mg-folate no.1 1 mg-dha 300 mg capsule (PNV-DHA) buspirone 10 mg tablet 5 mg PO BID 12/21/23 02/23/24 History cephalexin 500 mg capsule 500 mg PO BID #14 caps 12/21/23 02/23/24 Rx ferrous gluconate 240 mg (27 mg 240 mg PO QDAY 12/21/23 02/23/24 History iron) tablet (Ferate) Last Menstrual Period: 09/28/23 Zika: Zika virus screening: Negative : No PFSH PFSH Medical History Uterine anomaly Trauma Anxiety History of asthma History of back pain history of knee pain History of anemia Social History adopted: Yes household members: significant other, children and other details: JOSELYN Luciano (has two kids Ryan Khan lives with his mom) [facility] housing: house number of children: 2 current occupational status: other current occupation: [employer] current occupational exposures/hazards: No pets and animals: Yes (not managing litter box) pets and animals: cat(s) leisure activities: exercise history of recent travel: No sexually active: Yes Smoking Status: Former smoker quit date: 03/13/22 Tobacco: How many years used: 8 quit status: quit date established alcohol intake: never substance use type: marijuana and other details: last Oct 2022, counseling provided. Pt agreeable to drug testing well-balanced diet: daily or most days eating out: rarely or never during the past year weight has: decreased > 10 lbs what type of physical activity do you participate in: walking frequency: 1-2 times per week yesenia/taoist: None seatbelt use: always do you feel safe at home: Yes additional [facility] history[facility] History 2 Elective abortions Hx Para 1 Spontaneous abortions Hx # Term Pregnancies 1 Ectopic pregnancies Hx # Pregnancies Multiple births # of living children 1 Past Pregnancies Del. Date Name GA/Weeks Outcome Route Bth Weight Gen Labor Lgth Anesthesia Del Kashifatn Provider FOB 04/29/23 Jason 39 live - full term 6lbs 12oz Male [facility] Mustapha Luciano Delivery Date: 04/29/23 Last Updated by: Dee Dee Dejesus [facility] nrfhts HPI 14wk OB Details: DAVID POST is a 33 year old who presents for routine OB visit. OB Visit MANUEL Calculator Estimated Delivery Date Method Current WG Current Estimate 08/21/24 Ultrasound #1 14w 2d Other Estimates 07/04/24 LMP (Uncertain) 21w 1d 08/18/24 Ultrasound #2 14w 5d Expected Delivery Route/Plan R C/S with SM Specific Issue/Plans Covid status: [] Flu vaccine: [] Tdap vaccine: [] Rhogam: [] LARC form signed: [] Problem list reviewed and updated with the most current plan of care details and appropriate orders placed. Relevant counseling for the gestational age provided. Continue routine care and follow up unless otherwise noted in visit notes/problem list details Initial Weight: 181 lb Date -???-???-???-???-???-?? ?-???-???-???-???-???-? ??- EGA Weight BP Urine Prot -???-???-???-???-???-?? ?-???-???-???-???-???-? ??- Glucose FHR FuHt Pres Dilation -???-???-???-???-???-?? ?-???-???-???-???-???-? ??- Effaced St Visit Note 12/21/23 -???-???-???-???-???-?? ?-???-???-???-???-???-? ??- 5w 1d 181 lb 8 oz (+8 oz) 110/70 -???-???-???-???-???-?? ?-???-???-???-???-???-? ??- -???-???-???-???-???-?? ?-???-???-???-???-???-? ??- KW- CRL not cons with dates. SM assisted with scan. measuring 5.1 weeks. plan for hcgs and repeat US next week. 02/23/24 -???-???-???-???-???-?? ?-???-???-???-???-???-? ??- 14w 2d 173 lb (-8 lb) 119/72 Negative -???-???-???-???-???-?? ?-???-???-???-???-???-? ??- Negative 147 -???-???-???-???-???-?? ?-???-???-???-???-???-? ??- JV- pt was a bsent for a weeks due to insurance loss. She states that they have insurance now . new ob lab and NIPT ordered. unsure about rpt section vs trial of labor. ACOG First Trimester F (more content not included)... Normal [facility] Platelet countOrdered By: Jeff Marin on 02-23-2024 Platelets (Bld) [#/Vol] 250 10*3/uL 150-450 [facility] RBC Auto (Bld) [#/Vol]Ordere d By: Anna Marin on 02-23-2024 RBC (Bld) [#/Vol] 4.08 10*6/uL Low 4.2-5.[address] [facility] Rubella immune status IgGOrd ered By: Anna Marin on 02-23-2024 Rubella IgG Antibody Reactive Nonreactive [facility] Comment on above: Antibody Results Int erpretation of Immune Status Non Reactive Presumed Non-Immune Equivocal Equivocal Reactive Presumed Immune Treponema sp Ab Ql (S)Ordere d By: Anna Marin on 02-23-2024 Syphilis Total Antibody Non-Reactive [facility] Type AND Screenon 02-23-2024 Ab SCREEN GEL Negative Normal [facility] Comment on above: Order Comment: UNK Performed By: #### M 100.2200, L505.5000, L7000.1800 #### [facility] [address] [place], [address] ABO and Rh group Nom (Bld) Blood group O Rh(D) positive Normal [facility] Comment on above: Order Comment: UNK Performed By: #### M 100.2200, L505.5000, L7000.1800 #### [facility] [address] [place], [address] White blood cell (WBC) count Ordered By: Anna Marin on 02-23-2024 WBC (Bld) [#/Vol] 7.5 10*3/uL 4.4-11.0 [facility] CNOVon 12-26-2023 CNOV Office Visit (WSTR ) DAVID POST ([id number]) 1990 F Date Time Provider Department 12/26/23 1:00 PM NICOLÁS MALIK [facility] During your visit today, we recorded the following information about you: Temperature Pulse Respiration Blood pressure 99 degrees 78/minute 20/minute 107/70 Weight 81 kg Nicolás Malik APRN.DIRECTOR OF SOCIAL WORK 12/26/2023 1:19 PM Signed Subjective HPI Nontoxic-appearing 5-week female chief complaint cough chest congestion headache chills low-grade fever and productive cough. States significant other diagnosed with pneumonia 3 weeks ago. She has been coughing for 3 to 4 weeks now. Has used OTC medications have been somewhat helpful. Denies any fevers today. Did initially have fevers beginning of this illness. Denies any shortness of breath hemoptysis pleuritic pain or chest pain. Past medical history prescription medications allergies reviewed. .Patient presents with: Chest Congestion: Headache, cough, (productive), body aches, chills, wheeze, low grade temp x 1 monh History reviewed. No pertinent past medical history. PAST SURGICAL HISTORY Procedure Laterality Date NONE ALLERGIES Patient has no known allergies. MEDICATIONS no115/iron/folic acid ( 19 ORAL) Take 1 tablet by mouth once daily. therapeutic multivitamin-minerals (THERAPY M) 9 mg iron-400 mcg tablet Take 2 tablets by mouth once daily. cephALEXin (KEFLEX) 500 mg capsule Take 500 mg by mouth two times a day. fluticasone (FLONASE ALLERGY RELIEF) 50 mcg/actuation nasal spray Use 1 [place] in each nostril once daily. FAMILY HISTORY Adopted: Yes Social History Tobacco Use Smoking status: Every Day Types: Cigarettes Smokeless tobacco: Never Tobacco comments: 4-5 a day Vaping Use Vaping status: Never Used Substance Use Topics Alcohol use: Yes Drug use: Yes Types: Marijuana BP 107/70 Pulse 78 Temp 37.2 ?C (99 ?F) Resp 20 Wt 81 kg (178 lb 9.2 oz) LMP (LMP Unknown) SpO2 99% No BMI (P) 30.86 kg/m? Review of Systems Constitutional: Positive for chills and malaise/fatigue. Negative for fever. HENT: Negative for congestion, ear discharge, ear pain, sinus pain and sore throat. Eyes: Negative for blurred vision, pain, discharge and redness. Respiratory: Positive for cough and sputum production. Negative for hemoptysis, shortness of breath, wheezing and stridor. Cardiovascular: Negative for chest pain. Gastrointestinal: Negative for abdominal pain, diarrhea, nausea and vomiting. Musculoskeletal: Positive for myalgias. Skin: Negative for itching and rash. Neurological: Negative for dizziness and headaches. Objective Physical Exam Constitutional: General: She is not in acute distress. Appearance: She is not diaphoretic. HENT: Head: Normocephalic. Jaw: No trismus, tenderness, swelling or pain on movement. Nose: Congestion present. Mouth/Throat: Mouth: Mucous membranes are moist. Pharynx: Oropharynx is clear. Uvula midline. No pharyngeal swelling, oropharyngeal exudate, posterior oropharyngeal erythema or uvula swelling. Eyes: Conjunctiva/sclera: Conjunctivae normal. Pupils: Pupils are equal, round, and reactive to light. Cardiovascular: Rate and Rhythm: Normal rate and regular rhythm. Heart sounds: Normal heart sounds. Pulmonary: Effort: Pulmonary effort is normal. No tachypnea, accessory muscle usage or respiratory distress. Breath sounds: No stridor. Rhonchi present. No wheezing or rales. Abdominal: General: There is no distension. Palpations: Abdomen is soft. Tenderness: There is no abdominal tenderness. There is no guarding or rebound. Musculoskeletal: Cervical back: Normal range of motion and neck supple. No edema, erythema, rigidity or tenderness. No pain with movement. Normal range of motion. Lymphadenopathy: Cervical: No cervical adenopathy. Skin: General: Skin is warm and dry. Neurological: Mental Status: She is alert and oriented to person, place, and time. ASSESSMENT/PLAN: 1. Lower resp. tract infection - ICD9: 519.8, ICD10: J22 Diagnosed with lower respiratory tract infection. Placed on azithromycin. Follow-up in 48 hours symptoms are not improving with PCP. Patient was educated on supportive therapies. Patient was instructed to immediately proceed to emergency room for any new, worsening, or symptoms lasting longer than anticipated. The patient's clinical presentation is otherwise unremarkable at this time. Based on exam and clinical finding, the patient is stable for discharge. Plan of care was discussed with patient. Patient verbalizes understanding and agrees to plan of care. This note was generated using E la Carte software. It may contain errors in wording, punctuation, or spelling. Nicolás Malik APRN.DIRECTOR OF SOCIAL WORK Allergies As of Date: 12/26/2023 (No Known Allergies) Date Revi (more content not included)... Normal [facility] Chlamydia/GC ELIZABETH aptimaon CHLAMY,NUC ACID Negative Normal Negative [facility] Comment on above: Performed By: #### M 100.2200, L505.5000, L7000.1800 #### [facility] [address] [place], [address] GC BY NUC ACID Negative Normal Negative [facility] Comment on above: Result Comment: Perf ormed at: =G - [facility] [address] [place] [id number] Gastroenterologist: Jenny Correia MD, Phone: [phone] Performed By: #### M 100.2200, L505.5000, L7000.1800 #### [facility] [address] [place], [address] Gram Stainon 12-22-2023 GS Gram Stain 2+ White Blood Cells 1+ Gram positive cocci 2+ Gram negative rods No Epithelial cells Normal [facility] Comment on above: Performed By: #### M 100.2200, L505.5000, L7000.1800 #### [facility] [address] [place], [address] Urine Cultureon 12-22-2023 URC Culture exhibits no growth. Normal [facility] Comment on above: Performed By: #### M 100.2200, L505.5000, L7000.1800 #### [facility] [address] [place], [address] Wound Cultureon 12-22-2023 WC Pen[address] is the dr ug of choice for Beta Streptococcal infections. For Penicillin allergic patients, Erythromycin may be used. Streptococcus group G Amount Growth 1+ Normal [facility] Comment on above: Performed By: #### M 100.2200, L505.5000, L7000.1800 #### [facility] [address] [place], [address] Otolaryngologist Office Visit Reporton 12-21-2023 Otolaryngologist Office Visit Report [facility] [address], [address] [place] [address] OFFICE VISIT Date of Service: 12/21/23 MR#: [id number] Acct: [id number] Name: SINCEREDAVID LÓPEZ Rep #: [id number] : 1990 Provider: REECE Donis ams Age/Sex: 33/F [place] [facility] [place]: Signed Intake Vital Signs 06/03/24 16:16 12/21/23 14:37 12/21/23 14:37 Height 5 ft 3 in 5 ft 3 in 5 ft 3 in Weight: 181 lb 8 oz BMI 32.1 BP 110/70 Intake Visit Reasons: LMP 09/27 MANUEL 07/04 Documentation Clerk Required: No Is patient in pain?: No Allergies bee venom protein (honey bee) (bee sting) Allergy (Verified 12/21/23 14:36) Hives Medications ???Medication ???Instructions ???Recorded ???Confirmed ???Type multivitamin no.47-iron fum 27 cap PO 09/02/22 12/21/23 History mg-folate no.1 1 mg-dha 300 mg capsule (PNV-DHA) buspirone 10 mg tablet 5 mg PO BID 12/21/23 12/21/23 History ferrous gluconate 240 mg (27 mg 240 mg PO QDAY 12/21/23 12/21/23 History iron) tablet (Ferate) Last Menstrual Period: 09/28/23 Zika: Zika virus screening: Negative : No PFSH PFSH Medical History Uterine anomaly Trauma Anxiety History of asthma History of back pain history of knee pain History of anemia Social History adopted: Yes household members: significant other, children and other details: JOSELYN Luciano (has two kids Ryan Khan lives with his mom) [facility] housing: house number of children: 2 current occupational status: other current occupation: [employer] current occupational exposures/hazards: No pets and animals: Yes (not managing litter box) pets and animals: cat(s) leisure activities: exercise history of recent travel: No sexually active: Yes Smoking Status: Former smoker quit date: 03/13/22 Tobacco: How many years used: 8 quit status: quit date established alcohol intake: never substance use type: marijuana and other details: last Oct 2022, counseling provided. Pt agreeable to drug testing well-balanced diet: daily or most days eating out: rarely or never during the past year weight has: decreased > 10 lbs what type of physical activity do you participate in: walking frequency: 1-2 times per week yesenia/taoist: None seatbelt use: always do you feel safe at home: Yes additional social history: [facility] History 2 Elective abortions Hx Para 1 Spontaneous abortions Hx # Term Pregnancies 1 Ectopic pregnancies Hx # Pregnancies Multiple births # of living children 1 Past Pregnancies Del. Date Name GA/Weeks Outcome Route Bth Weight Gen Labor Lgth Anesthesia Del Locatn Provider FOB 04/29/23 Jason 39 live - full term 6lbs 12oz Male [facility] Mustapha Luciano Delivery Date: 04/29/23 Last Updated by: Dee Dee Dejesus [facility] nrfhts HPI LMP 09/27 MANUEL 07/04 Details: DAVID POST is a 33 year old who presents for New OB visit. SHould be measuring 12 weeks. Had positive test on 11/01/23. no bleeding or spotting noted since then. Had 2 +UPTs this am. OB Visit MANUEL Calculator Estimated Delivery Date Method Current WG Current Estimate 08/21/24 Ultrasound #1 5w 1d Other Estimates 07/04/24 LMP (Uncertain) 12w 0d Comments: HIV: Urine Culture: Sequential Screen: NIPT Screen: Estimated Due Date: 07/04/24 Expected Delivery Route/Plan R C/S with SM Specific Issue/Plans Covid status: [] Flu vaccine: [] Tdap vaccine: [] Rhogam: [] LARC form signed: [] Problem list reviewed and updated with the most current plan of care details and appropriate orders placed. Relevant counseling for the gestational age provided. Continue routine care and follow up unless otherwise noted in visit notes/problem list details Initial Weight: 181 lb Date -???-???-???-???-???-?? ?-???-???-???-???-???-? ??- EGA Weight BP Urine Prot -???-???-???-???-???-?? ?-???-???-???-???-???-? ??- Glucose FHR FuHt Pres Dilation -???-???-???-???-???-?? ?-???-???-???-???-???-? ??- Effaced St Visit Note 12/21/23 -???-???-???-???-???-?? ?-???-???-???-???-???-? ??- 5w 1d 181 lb 8 oz (+8 oz) 110/70 -???-???-???-???-???-?? ?-???-???-???-???-???-? ??- -???-???-???-???-???-?? ?-???-???-???-???-???-? ??- KW- CRL not cons with dates. SM assisted with scan. measuring 5.1 weeks. plan for hcgs and repeat US next week. Menstrual History Last Menstrual Period: 09/28/23 Reported LMP: approximate (month known) Normal amount/duration: No (extra heavy, extra clots) Frequency in days: 6 On hormonal BC at conception: No hCG+: 11/01/23 Antepartum Record Genetic Screening: Congenital Heart Defe (more content not included)... Normal [facility] Urine Drug Screen (VISTA)on 12-21-2023 AMPHETAMINES Negative Normal <1000 ng/mL [facility] Comment on above: Order Comment: UNK Performed By: #### M 100.2200, L505.5000, L7000.1800 #### [facility] [address] [place], [place], [address] BARBITIURATES Negative Normal < 200 ng/mL [facility] Comment on above: Order Comment: UNK Performed By: #### M 100.2200, L505.5000, L7000.1800 #### [facility] [address] [place], [place], [address] BENZODIAZIPINE Negative Normal < 200 ng/mL [facility] Comment on above: Order Comment: UNK Performed By: #### M 100.2200, L505.5000, L7000.1800 #### [facility] [address] [place], [address] COCAINE Negative Normal < 300 ng/mL [facility] Comment on above: Order Comment: UNK Performed By: #### M 100.2200, L505.5000, L7000.1800 #### [facility] [address] [place], [address] ECSTACY Negative Normal < 500 ng/mL [facility] Comment on above: Order Comment: UNK Performed By: #### M 100.2200, L505.5000, L7000.1800 #### [facility] [address] [place], [address] METHADONE Negative Normal < 300 ng/mL [facility] Comment on above: Order Comment: UNK Performed By: #### M 100.2200, L505.5000, L7000.1800 #### [facility] [address] [place], [address] OPIATES Negative Normal < 300 ng/mL [facility] Comment on above: Order Comment: UNK Performed By: #### M 100.2200, L505.5000, L7000.1800 #### [facility] [address] [place], [address] PCP Negative Normal < 25 ng/mL [facility] Comment on above: Order Comment: UNK Performed By: #### M 100.2200, L505.5000, L7000.1800 #### [facility] [address] [place], [address] THC Positive Abnormal < 50 ng/mL [facility] Comment on above: Order Comment: UNK Performed By: #### M 100.2200, L505.5000, L7000.1800 #### [facility] [address] [place], [address] VISTA UDS PH 5 Normal [facility] Comment on above: Order Comment: UNK Performed By: #### M 100.2200, L505.5000, L7000.1800 #### [facility] [address] [place], [place], [address] hCG Titer Quant., Serumon HCG QUANT. 8051 mIU/mL High 1-3 [facility] Comment on above: Result Comment: hCG levels with Gestational Age Gestational Age hCG mIU/mL (IU/L) 0.2 - 1 week 5 - 50 1-2 weeks 50 - 500 2-3 weeks 100 - 5000 3-4 weeks 500 - 58509 4-5 weeks 1000 - 42634 5-6 weeks 92540 - 100,000 6-8 weeks 34313 - 200,000 2-3 months 33170 - 100,000 Performed By: #### L 700.8000 #### [facility] [address] [place], [place], [address] CNOVon 09-05-2023 CNOV Office Visit (UCTR ) DAVID POST ([id number]) 1990 F Date Time Provider Department 09/05/23 10:00 AM DWIGHT DURAN [facility] During your visit today, we recorded the following information about you: Temperature Pulse Respiration Blood pressure 97.9 degrees 75/minute 18/minute 112/64 Weight 77.1 kg Dwight Duran PA 09/05/2023 10:16 AM Signed This note was created using NoteWriter. Subjective David Post is a 32 year old female. HPI 32-year-old female presents for sore throat, sinus congestion, cough x 3 days. Patient states on Monday she started getting sick with nasal congestion, cough, sore throat. She states she has a lot of postnasal drainage. She states that she has sinus pressure and pain. No fevers. She denies any chest pain or shortness of breath. She is still able to eat and drink, but does hurt to swallow. She states she has been taking cold and flu medication daytime and nighttime, but has only minimally been helping with her symptoms. She states that her children and are both sick with similar symptoms. Patient is breast-feeding. No other complaint. History reviewed. No pertinent past medical history. PAST SURGICAL HISTORY Procedure Laterality Date NONE ALLERGIES Patient has no active allergies. MEDICATIONS MULTIVITAMIN ORAL Take by mouth. JUNE, 1-20 mg-mcg per tablet TAKE 1 TABLET BY MOUTH EVERY DAY (Patient not taking: Reported on 06/14/2022) FAMILY HISTORY Adopted: Yes Social History Tobacco Use Smoking status: Every Day Types: Cigarettes Smokeless tobacco: Never Tobacco comments: 4-5 a day Vaping Use Vaping Use: Never used Substance Use Topics Alcohol use: Yes Drug use: Yes Types: Marijuana Review of Systems Constitutional: Negative for chills and fever. HENT: Positive for congestion, postnasal drip, sinus pressure, sinus pain and sore throat. Negative for ear pain. Respiratory: Positive for cough. Negative for shortness of breath. Cardiovascular: Negative for chest pain. Gastrointestinal: Negative for diarrhea and vomiting. Objective BP 112/64 Pulse 75 Temp 36.6 ?C (97.9 ?F) (Tympanic) Resp 18 Wt 77.1 kg (169 lb 15.6 oz) LMP 05/10/2019 SpO2 98% BMI (P) 29.38 kg/m? Physical Exam Vitals and nursing note reviewed. Constitutional: General: She is not in acute distress. Appearance: Normal appearance. She is not toxic-appearing. HENT: Right Ear: Tympanic membrane and ear canal normal. Left Ear: Tympanic membrane and ear canal normal. Nose: Congestion present. Right Sinus: Maxillary sinus tenderness present. Left Sinus: Maxillary sinus tenderness present. Mouth/Throat: Mouth: Mucous membranes are moist. Pharynx: Uvula midline. Posterior oropharyngeal erythema present. No oropharyngeal exudate. Tonsils: No tonsillar exudate or tonsillar abscesses. 2+ on the right. 2+ on the left. Eyes: Conjunctiva/sclera: Conjunctivae normal. Cardiovascular: Rate and Rhythm: Normal rate and regular rhythm. Pulmonary: Effort: Pulmonary effort is normal. Breath sounds: Normal breath sounds. No wheezing, rhonchi or rales. Neurological: Mental Status: She is alert. Assessment and Plan ASSESSMENT/PLAN: 1. URI, acute - ICD9: 465.9, ICD10: J06.9 (primary diagnosis) - Discussed viral etiology and rationale for treatment. - Symptomatic treatment with prn analgesia - Supportive care with fluids and rest -Recommend Flonase, Mucinex. -Declines COVID/flu swab. 2. Sore throat - ICD9: 462, ICD10: J02.9 - suspect viral - Group A strep molecular testing negative - Discussed supportive care treatment with fluids, rest and analgesia. - The patient may also use warm salt water gargles, throat lozenges and/or OTC throat spray as needed. - STREP A MOLECULAR (POC) Diagnosis and treatment plan were discussed and questions were answered to the patient's satisfaction. Pt acknowledged understanding of concepts and follow up plan. Specific signs and symptoms that would indicate the need for higher level of care were discussed in detail warranting prompt ER evaluation. ANA MARIA Wesley Krislyn P, PA 09/05/2023 10:14 AM Signed Rest, increase water intake Motrin or Tylenol as needed for fever or pain. Salt water gargles, chloraseptic spray or lozenges as needed for sore throat. Warm beverages, honey. Nasal saline spray as needed Cool mist humidifier at night A cold normally lasts 7-10 days. If your symptoms are lasting longer, develop fever, or worsening by that time instead of improving then return to clinic or follow up with PCP for re-evaluation. Tylenol (generic acetaminophen) 500 mg-2 tabs every 8 hrs. as needed for fever and aches Ibuprofen 600 mg (3-200mg tablets) every 6 hours -Mucinex (generic is fine) Guaifenesin 1200 mg twice daily to help with cough and to thin out mucus (more content not included)... Normal [facility] STREP A MOLECULAR (POC)on Procedural Control Valid [facility] Strep A (POCT) Negative Negative [facility] CNOVon 05-05-2023 CNOV Office Visit (UCWSTR ) DAVID POST ([id number]) 1990 F Date Time Provider Department 05/05/23 11:45 AM MYAH NEWELL During your visit today, we recorded the following information about you: Temperature Pulse Respiration Blood pressure 98.3 degrees 85/minute 16/minute 130/80 Weight 79.7 kg Martha Garcia 05/05/2023 11:56 AM Addendum Subjective Sore Throat Pertinent negatives include no abdominal pain, congestion, coughing, diarrhea, ear discharge, ear pain, headaches or vomiting. Pt presents to clinic on May 05, 2023 with CC sore throat Exposure to fiance who tested positive for strep throat Started having a dry and scratchy throat today Denies cough, congestion, nausea, vomiting, diarrhea, constipation, fever, headache, stomach ache Eating and drinking well Does not hurt to swallow Sleeping well No ear pain, eye drainage or pain, chills, sweats Review of Systems Constitutional: Negative for chills, diaphoresis, fever and malaise/fatigue. HENT: Positive for sore throat. Negative for congestion, ear discharge and ear pain. Eyes: Negative for pain, discharge and redness. Respiratory: Negative for cough. Cardiovascular: Negative for chest pain. Gastrointestinal: Negative for abdominal pain, constipation, diarrhea, nausea and vomiting. Genitourinary: Negative for dysuria. Neurological: Negative for dizziness and headaches. BP 130/80 Pulse 85 Temp 36.8 ?C (98.3 ?F) (Left Tympanic) Resp 16 Wt 79.7 kg (175 lb 12.8 oz) LMP 05/10/2019 SpO2 99% Yes BMI (P) 30.38 kg/m? No past medical history on file. PAST SURGICAL HISTORY Procedure Laterality Date NONE ALLERGIES Patient has no active allergies. MEDICATIONS MULTIVITAMIN ORAL Take by mouth. JUNE, 1-20 mg-mcg per tablet TAKE 1 TABLET BY MOUTH EVERY DAY (Patient not taking: Reported on 06/14/2022) FAMILY HISTORY Adopted: Yes Social History Tobacco Use Smoking status: Every Day Types: Cigarettes Smokeless tobacco: Never Tobacco comments: 4-5 a day Vaping Use Vaping Use: Never used Substance Use Topics Alcohol use: Yes Drug use: Yes Types: Marijuana Objective Physical Exam Constitutional: General: She is not in acute distress. Appearance: Normal appearance. She is not ill-appearing, toxic-appearing or diaphoretic. HENT: Head: Normocephalic. Right Ear: Tympanic membrane, ear canal and external ear normal. There is no impacted cerumen. Left Ear: Tympanic membrane, ear canal and external ear normal. There is no impacted cerumen. Nose: Nose normal. No congestion or rhinorrhea. Mouth/Throat: Mouth: Mucous membranes are moist. Pharynx: Posterior oropharyngeal erythema present. No oropharyngeal exudate. Eyes: General: Right eye: No discharge. Left eye: No discharge. Conjunctiva/sclera: Conjunctivae normal. Cardiovascular: Rate and Rhythm: Normal rate and regular rhythm. Heart sounds: Normal heart sounds. No murmur heard. No gallop. Pulmonary: Effort: Pulmonary effort is normal. No respiratory distress. Breath sounds: Normal breath sounds. No stridor. No wheezing, rhonchi or rales. Chest: Chest wall: No tenderness. Neurological: Mental Status: She is alert and oriented to person, place, and time. Psychiatric: Mood and Affect: Mood normal. Behavior: Behavior normal. Thought Content: Thought content normal. Judgment: Judgment normal. ASSESSMENT/PLAN: 1. Sore throat - ICD9: 462, ICD10: J02.9 - Group A strep molecular testing negative - Discussed supportive care treatment with fluids, rest and analgesia. - STREP A MOLECULAR (POC) ALEXY Masters TEACHING PROVIDER (Physician/PA/MEAT CUTTER) NOTE OF PERSONAL INVOLVEMENT IN CARE: I have personally seen and examined the patient and performed the medical decision-making components. I have reviewed the Advanced Practice Registered Nurse (MEAT CUTTER) Student's documentation and verified the findings in the note as written. Any additions or changes are noted in bold/italics. Signature: Myah Newell Date: 05/05/2023 Time: 1:05 PM Myah Newell APRN.[facility] 05/05/2023 1:06 PM Addendum ASSESSMENT/PLAN: 1. Sore throat - ICD9: 462, ICD10: J02.9 - Group A strep molecular testing negative - Discussed supportive care treatment with fluids, rest and analgesia. - STREP A MOLECULAR (POC) SORE THROAT INSTRUCTIONS SORE THROAT OVERVIEW - Sore throat is a common problem during childhood, and is usually the result of a bacterial or viral infection. Although sore throat usually resolves without complications, it sometimes requires treatment with an antibiotic. There are some less common causes of sore throat that are serious or even life-threatening. This topic will discuss the most common causes and treatments of sore throat in children, as well as the warning signs of more ser (more content not included)... Normal [facility] STREP A MOLECULAR (POC)on Procedural Control Valid [facility] Strep A (POCT) Negative Negative [facility] Basophil percentageOrdered B y: Meena Luciano on 04-29-2023 Hemoglobin (Bld) [Mass/Vol] 11.0 g/dL 12.0-15.0 [facility] WBC (Bld) [#/Vol] 15.0 10*3/uL 4.4-11.[address] [facility] Determination of erythrocyte mean corpuscular volume (MCV)Ordered By: Meena Luciano on 04-29-2023 MCV (RBC) [Entitic vol] 92.0 fL 81-99 [facility] Erythrocyte distribution wid th ratioOrdered By: Meena Luciano on 04-29-2023 Erythrocyte distribution width (RBC) [Ratio] 13.6 % 11.6-14.6 [facility] Erythrocyte distribution wid th standard deviationOrdered By: Meena Luciano on 04-29-2023 Erythrocyte distribution width (RBC) [Entitic vol] 45.2 fL 35.1-43.9 [facility] Hematocrit Auto (Bld) [Volum e fraction]Ordered By: Meena Luciano on 04-29-2023 Hematocrit (Bld) [Volume fraction] 32.3 % 37-47 [facility] Laboratory - Hematology and Cell countsOrdered By: Meena Luciano on 04-29-2023 MCH (RBC) [Entitic mass] 31.3 pg 27.0-32.0 [facility] MCHC (RBC) [Mass/Vol] 34.1 g/dL 32-36 [facility] Platelet mean volume (Bld) [Entitic vol] 10.9 fL 6.2-12.0 [facility] Platelets (Bld) [#/Vol] 187 10*3/uL 150-450 [facility] RBC Auto (Bld) [#/Vol]Ordere d By: Meena Luciano on 04-29-2023 RBC (Bld) [#/Vol] 3.51 10*6/uL 4.2-5.[address] [facility] Laboratory - Chemistry and C hemistry - challengeOrdered By: Meena Luciano on 04-28-2023 ALT [Catalytic activity/Vol] 30 U/L 13-56 [facility] Laboratory - Drug toxicology Ordered By: Meena Luciano on 04-28-2023 Amphetamines Ql (U) Negative <1000 ng/mL [facility] Benzodiazepines Ql (U) Negative < 200 ng/mL [facility] Cannabinoids Screen Ql (U) Negative < 50 ng/mL [facility] Cocaine Ql (U) Negative < 300 ng/mL [facility] Opiates Ql (U) Negative < 300 ng/mL [facility] No Panel InformationOrdered By: Meena Luciano on 04-28-2023 Estimated Creatinine Clearance Calc 117.30 ml/min [facility] Estimated GFR (MDRD) Amer 118 mL/min >60 [facility] Comment on above: GFR Calc Estimated GFR (MDRD) Non-Af Amer 98 mL/min >60 [facility] Comment on above: Non- GFR Calc MDMA (Ecstasy) Screen Negative < 500 ng/mL [facility] Urine Barbiturates Screen Negative < 200 ng/mL [facility] Urine Drug Screen Comment [facility] Comment on above: CONFIRMATORY TESTING FOR ALL POSITIVE URINE DRUG SCREENRESULTS WILL ONLY BE SENT OUT UPON PHYSICIAN ORDER. VISTA Urine Drug Screen methods provide only preliminaryanalytical test results. A more specific alternate chemicalmethod must be used in order to obtain a confirmedanalytical result. Gas chromatography/mass spectrometery(GC/MS) is the preferred confirmatory method. Clinicalconsideration and professional judgement should be appliedto any drug of abuse test result, particularly whenpreliminary positive results are used. URINE TCA TESTING MUST BE ORDERED SEPARATELY. USE TESTMNEMONIC: [facility] Urine Methadone Screen Negative < 300 ng/mL [facility] Vaginal Amniotic Fluid Detection Positive Negative [facility] Comment on above: Amniotic fluid prese nt indicates rupture of Membranes. RESULTS CALLED TO Adam RONQUILLO 04/28/23 0302 [address] Ger.REPORT READ BACK BY Adam RONQUILLO . Serum Treponema species anti body detectionOrdered By: Meena Luciano on 04-28-2023 Treponema sp Ab Ql (S) Non-Reactive [facility] Serum or plasma creatinine m easurement (mass/volume)Ordered By: Meena Luciano on 04-28-2023 Creatinine [Mass/Vol] 0.73 mg/dL 0.55-1.02 [facility] Comment on above: The validity of the calculated GFR & GFRAA in patients over 70 years has not been determined. Clinical correlation is essential. Serum or plasma uric acid me asurement (mass/volume)Ordered By: Meena Luciano on 04-28-2023 Urate [Mass/Vol] 4.0 mg/dL 2.6-6.0 [facility] Comment on above: The drugs N-Acetylcy steine and Metamizole may falsely depress this assay. Thin prep Papanicolaou smear with manual screeningOrdered By: Meena Luciano on 04-28-2023 Protein (U) [Mass/Vol] 27.3 mg/dL 0.0-11.8 [facility] Thin prep Papanicolaou smear with manual screening 18 U/L 15-37 [facility] Urine creatinine measurement (mass/volume)Ordered By: Meena Luciano on 04-28-2023 Creatinine (U) [Mass/Vol] 144.00 mg/dL NO RANGE EST. [facility] Urine phencyclidine (PCP) de tectionOrdered By: Meena Luciano on 04-28-2023 Phencyclidine Ql (U) Negative < 25 ng/mL [facility] Urine protein/creatinine mas s ratioOrdered By: Meena Luciano on 04-28-2023 Protein/Creatinine (U) [Mass ratio] 190 mg/g CRE 0-200 [facility] Laboratory - Microbiology an d Antimicrobial susceptibilityon 04-23-2023 SARS-CoV-2 (COVID-19) RNA ELIZABETH+probe Ql (Unsp spec) Detected [facility] No Panel Informationon 04-23 Influenza Types A,B Rapid (Clinic) Not detected [facility] Laboratory - Chemistry and C hemistry - challengeon 04-21-2023 Glucose Ql (U) Negative [facility] Laboratory - Urinalysison Protein Ql (U) Trace [facility] No Panel InformationOrdered By: Anna Marin on 04-21-2023 Group B Streptococcus Culture Group B Beta Streptococcus is not isolated. [facility] Group B Streptococcus Culture Group B Beta Streptococcus is not isolated. [facility] Laboratory - Chemistry and C hemistry - challengeon 02-27-2023 Glucose Ql (U) Negative [facility] Laboratory - Urinalysison Protein Ql (U) Negative [facility] Absolute lymphocyte countOrd ered By: Katelin Montejo on 02-17-2023 Lymphocytes Auto (Unsp spec) [#/Vol] 1.64 10*3/uL 0.83-4.51 [facility] Basophil percentageOrdered B y: Katelin Montejo on 02-17-2023 Basophils/100 WBC (Bld) 0.4 % 0-1 [facility] Eosinophils/100 WBC (Bld) 1.9 % 0-5 [facility] Neutrophils (Bld) [#/Vol] 8.2 10*3/uL 2.0-7.7 [facility] Neutrophils/100 WBC (Bld) 75.6 % 47-70 [facility] WBC (Bld) [#/Vol] 10.9 10*3/uL 4.4-11.[address] [facility] Blood erythrocytes count (nu mber/volume)Ordered By: Katelin Montejo on 02-17-2023 RBC (Bld) [#/Vol] 3.60 10*6/uL 4.2-5.[address] [facility] Blood hemoglobin measurement (mass/volume)Ordered By: Katelin Montejo on 02-17-2023 Hemoglobin (Bld) [Mass/Vol] 12.0 g/dL 12.0-15.0 [facility] Blood lymphocytes/100 leukoc ytesOrdered By: Katelin Montejo on 02-17-2023 Lymphocytes/100 WBC (Bld) 15.1 % 19-41 [facility] Blood monocytes/100 leukocyt esOrdered By: Katelin Montejo on 02-17-2023 Monocytes/100 WBC (Bld) 6.5 % 0-10 [facility] Blood platelet mean volumeOr dered By: Katelin Montejo on 02-17-2023 Platelet mean volume (Bld) [Entitic vol] 10.5 fL 6.2-12.0 [facility] Determination of erythrocyte mean corpuscular volume (MCV)Ordered By: Katelin Montejo on 02-17-2023 MCV (RBC) [Entitic vol] 94.7 fL 81-99 [facility] Gestational diabetes screen 1-hour screen with 50g oral glucose loadOrdered By: Katelin Montejo on 02-17-2023 Glucose 1 Hr post 50 g glucose PO [Mass/Vol] 106 mg/dL 70-140 [facility] HIV 1 and HIV-2 antibody ass ay with HIV-1 p24 antigen detectionOrdered By: Katelin Montejo on 02-17-2023 HIV 1+2 Ab+HIV1 p24 Ag IA Ql Non-Reactive Nonreactive [facility] Hematocrit Auto (Bld) [Volum e fraction]Ordered By: Katelin Montejo on 02-17-2023 Hematocrit (Bld) [Volume fraction] 34.1 % 37-47 [facility] Laboratory - Hematology and Cell countsOrdered By: Katelin Montejo on 02-17-2023 Erythrocyte distribution width (RBC) [Entitic vol] 42.8 fL 35.1-43.9 [facility] Erythrocyte distribution width (RBC) [Ratio] 12.2 % 11.6-14.6 [facility] Immature granulocytes/100 WBC (Bld) 0.500 % 0.0-0.9 [facility] Comment on above: IG% - Immature Granu locytes (promyelocytes, myelocytes and metamyelocytes) > 1% indicates that a LEFT SHIFT is Present. MCH (RBC) [Entitic mass] 33.3 pg 27.0-32.0 [facility] Nucleated RBC/100 WBC (Bld) [Ratio] 0 % 0-5 [facility] MCHC Auto (RBC) [Mass/Vol]Or dered By: Katelin Montejo on 02-17-2023 MCHC (RBC) [Mass/Vol] 35.2 g/dL 32-36 [facility] Platelets bldOrdered By: Eleanor Montejo on 02-17-2023 Platelets (Bld) [#/Vol] 235 10*3/uL 150-450 [facility] Serum Treponema species anti body detectionOrdered By: Katelin Montejo on 02-17-2023 Treponema sp Ab Ql (S) Non-Reactive [facility] Laboratory - Chemistry and C hemistry - challengeon 01-06-2023 Glucose Ql (U) Negative [facility] Laboratory - Urinalysison Protein Ql (U) Negative [facility] Laboratory - Chemistry and C hemistry - challengeon 12-09-2022 Glucose Ql (U) Negative [facility] Laboratory - Urinalysison Protein Ql (U) Negative [facility] Culture, urineOrdered By: Jeff Marin on 11-11-2022 Bacteria identified Cx Nom (U) Positive [facility] Bacteria identified Cx Nom (U) Positive [facility] Absolute lymphocyte countOrd ered By: Katelin Montejo on 10-14-2022 Lymphocytes Auto (Unsp spec) [#/Vol] 1.75 10*3/uL 0.83-4.51 [facility] Basophil percentageOrdered B y: Katelin Montejo on 10-14-2022 Basophils/100 WBC (Bld) 0.5 % 0-1 [facility] Eosinophils/100 WBC (Bld) 3.8 % 0-5 [facility] Neutrophils (Bld) [#/Vol] 5.4 10*3/uL 2.0-7.7 [facility] Neutrophils/100 WBC (Bld) 66.0 % 47-70 [facility] WBC (Bld) [#/Vol] 8.1 10*3/uL 4.4-11.0 [facility] Blood erythrocytes count (nu mber/volume)Ordered By: Katelin Montejo on 10-14-2022 RBC (Bld) [#/Vol] 4.00 10*6/uL 4.2-5.[address] [facility] Blood hemoglobin measurement (mass/volume)Ordered By: Katelin Montejo on 10-14-2022 Hemoglobin (Bld) [Mass/Vol] 12.6 g/dL 12.0-15.0 [facility] Blood lymphocytes/100 leukoc ytesOrdered By: Katelin Montejo on 10-14-2022 Lymphocytes/100 WBC (Bld) 21.5 % 19-41 [facility] Blood monocytes/100 leukocyt esOrdered By: Katelin Montejo on 10-14-2022 Monocytes/100 WBC (Bld) 7.7 % 0-10 [facility] Blood platelet mean volumeOr dered By: Katelin Montejo on 10-14-2022 Platelet mean volume (Bld) [Entitic vol] 10.4 fL 6.2-12.0 [facility] Chlamydia trachomatis rRNA d etection by probe and target amplification methodOrdered By: Katelin Montejo on 10-14-2022 C. trachomatis rRNA ELIZABETH+probe Ql (Unsp spec) Negative Negative [facility] Culture, urineOrdered By: Roque Montejo on 10-14-2022 Bacteria identified Cx Nom (U) Mixed Gram Pos & Gram Neg Org [facility] Determination of erythrocyte mean corpuscular volume (MCV)Ordered By: Katelin Montejo on 10-14-2022 MCV (RBC) [Entitic vol] 92.8 fL 81-99 [facility] HIV 1 and HIV-2 antibody ass ay with HIV-1 p24 antigen detectionOrdered By: Katelin Montejo on 10-14-2022 HIV 1+2 Ab+HIV1 p24 Ag IA Ql Non-Reactive Nonreactive [facility] Hematocrit Auto (Bld) [Volum e fraction]Ordered By: Katelin Montejo on 10-14-2022 Hematocrit (Bld) [Volume fraction] 37.1 % 37-47 [facility] Laboratory - Hematology and Cell countsOrdered By: Katelin Montejo on 10-14-2022 Erythrocyte distribution width (RBC) [Entitic vol] 41.2 fL 35.1-43.9 [facility] Erythrocyte distribution width (RBC) [Ratio] 12.0 % 11.6-14.6 [facility] Immature granulocytes/100 WBC (Bld) 0.500 % 0.0-0.9 [facility] Comment on above: IG% - Immature Granu locytes (promyelocytes, myelocytes and metamyelocytes) > 1% indicates that a LEFT SHIFT is Present. MCH (RBC) [Entitic mass] 31.5 pg 27.0-32.0 [facility] Nucleated RBC/100 WBC (Bld) [Ratio] 0 % 0-5 [facility] Laboratory - Microbiology an d Antimicrobial susceptibilityOrdered By: Katelin Montejo on 10-14-2022 N. gonorrhoeae DNA ELIZABETH+probe Ql (Unsp spec) Negative Negative [facility] Comment on above: Performed at: [address] [id number] Director: Jenny Correia MD, Phone: [phone] MCHC Auto (RBC) [Mass/Vol]Or dered By: Katelin Montejo on 10-14-2022 MCHC (RBC) [Mass/Vol] 34.0 g/dL 32-36 [facility] No Panel InformationOrdered By: Katelin Montejo on 10-14-2022 Hepatitis B Surface Antigen Non-Reactive Nonreactive [facility] Hepatitis C Antibody Non-Reactive Nonreactive [facility] Comment on above: Non Reactive: < 0.8 Equivocal: >/= 0.8 to < 1.0 Reactive: >/= 1.0The CDC recommends that a reactive/equivocal HCV antibody result be followed up by the HCV Nucleic Acid Amplificationtest (011968) Miscellaneous Test Comment MAILED SPECIMEN [facility] Rubella IgG Antibody Reactive Nonreactive [facility] Comment on above: Antibody Results Int erpretation of Immune Status Non Reactive Presumed Non-Immune Equivocal Equivocal Reactive Presumed Immune Platelets bldOrdered By: Eleanor Montejo on 10-14-2022 Platelets (Bld) [#/Vol] 243 10*3/uL 150-450 [facility] Serum Treponema species anti body detectionOrdered By: Katelin Montejo on 10-14-2022 Treponema sp Ab Ql (S) Non-Reactive [facility] XR HAND GENERAL 3V PA/LAT/OB L RIGHTon 06-14-2022 [facility] XR Hand - right PA and Later al and Obliqueon 06-14-2022 Radiology Study observation (narrative) Rubén urias [facility] IMPRESSION: Negative Press And Blow Machine Tender: PSCB Transcribe Date/Time: Jun 14 2022 1:13P Dictated by : AMAN HELMS MD This examination was interpreted and the report reviewed and electronically signed by: AMAN HELMS MD on Jun 14 2022 1:14PM EST DIVISION OF RADIOLOGY * * *Final Report* * * DATE OF EXAM: Jun 14 2022 1:11PM [id number] [id number] - XR HAND 3V PA/LAT/OBL RT / PROCEDURE REASON: multiple diagnoses * * * * Physician Interpretation * * * * PROCEDURE: Right hand, attention 4th finger INDICATION: Injury of right hand, initial encounter Pain of finger of right hand .Right hand shut in a car door today. Ring finger middle phalanx pain and dorsal 4th metacarpal pain. TECHNIQUE: XR HAND 3V PA/LAT/OBL RT COMPARISON: None FINDINGS: No fractures or dislocations are seen. The bones, joint spaces and soft tissues are unremarkable. DIVISION OF RADIOLOGY Provider, [facility] - 06/14/2022 * * *Final Report* * * DATE OF EXAM: Jun 14 2022 1:11PM [facility] 5346 - XR HAND 3V PA/LAT/OBL RT / PROCEDURE REASON: multiple diagnoses * * * * Physician Interpretation * * * * PROCEDURE: Right hand, attention 4th finger INDICATION: Injury of right hand, initial encounter Pain of finger of right hand .Right hand shut in a car door today. Ring finger middle phalanx pain and dorsal 4th metacarpal pain. TECHNIQUE: XR HAND 3V PA/LAT/OBL RT COMPARISON: None FINDINGS: No fractures or dislocations are seen. The bones, joint spaces and soft tissues are unremarkable. IMPRESSION IMPRESSION: Negative Press And Blow Machine Tender: PSCB Transcribe Date/Time: Jun 14 2022 1:13P Dictated by : AMAN HELMS MD This examination was interpreted and the report reviewed and electronically signed by: AMAN HELMS MD on Jun 14 2022 1:14PM EST [facility] XR Hand - right PA and Later al and ObliqueOrdered By: [facility] Provider on 06-14-2022 [facility] Vital Signs Date Time Vital Sign Value Performing Clinician Gregory manuel 09-24-2024 11:07-0400 Body height 160.02 cm No Primary Care Physician [facility] 09-24-2024 11:07-0400 Body mass index (BMI) [Ratio] 30.6 kg/m2 No Primary Care Physician [facility] 09-24-2024 11:07-0400 Body weight 78.47 kg No Primary Care Physician [facility] 09-24-2024 11:07-0400 Diastolic blood pressure 71 mm[Hg] No Primary Care Physician [facility] 09-24-2024 11:07-0400 Systolic blood pressure 106 mm[Hg] No Primary Care Physician [facility] 08-27-2024 10:15-0400 Body height 160.02 cm No Primary Care Physician [facility] 08-27-2024 10:11-0400 Body mass index (BMI) [Ratio] 29.4 kg/m2 No Primary Care Physician [facility] 08-27-2024 10:11-0400 Body weight 75.4 kg No Primary Care Physician [facility] 08-27-2024 10:11-0400 Diastolic blood pressure 75 mm[Hg] No Primary Care Physician [facility] 08-27-2024 10:11-0400 Systolic blood pressure 114 mm[Hg] No Primary Care Physician [facility] 08-13-2024 11:30-0400 Body temperature 97.7 [degF] No Primary Care Physician [facility] 08-13-2024 11:30-0400 Diastolic blood pressure 71 mm[Hg] No Primary Care Physician [facility] 08-13-2024 11:30-0400 Heart rate 82 /min No Primary Care Physician [facility] 08-13-2024 11:30-0400 Respiratory rate 16 /min No Primary Care Physician [facility] 08-13-2024 11:30-0400 SaO2% (BldA) [Mass fraction] 97 % No Primary Care Physician [facility] 08-13-2024 11:30-0400 Systolic blood pressure 118 mm[Hg] No Primary Care Physician [facility] 08-11-2024 20:18-0400 Body height 160.02 cm No Primary Care Physician [facility] 08-11-2024 20:18-0400 Body mass index (BMI) [Ratio] 33.5 kg/m2 No Primary Care Physician [facility] 08-11-2024 20:18-0400 Body weight 85.72 kg No Primary Care Physician [facility] 08-08-2024 09:09-0400 Body height 165.1 cm No Primary Care Physician [facility] 08-08-2024 09:09-0400 Body mass index (BMI) [Ratio] 32.3 kg/m2 No Primary Care Physician [facility] 08-08-2024 09:09-0400 Body weight 88.11 kg No Primary Care Physician [facility] 08-08-2024 09:09-0400 Diastolic blood pressure 78 mm[Hg] No Primary Care Physician [facility] 08-08-2024 09:09-0400 Systolic blood pressure 131 mm[Hg] No Primary Care Physician [facility] 08-02-2024 11:21-0400 Body mass index (BMI) [Ratio] 32 kg/m2 No Primary Care Physician [facility] 08-02-2024 11:21-0400 Body weight 87.2 kg No Primary Care Physician [facility] 08-02-2024 11:21-0400 Diastolic blood pressure 81 mm[Hg] No Primary Care Physician [facility] 08-02-2024 11:21-0400 Systolic blood pressure 129 mm[Hg] No Primary Care Physician [facility] 07-22-2024 10:21-0400 Body mass index (BMI) [Ratio] 30.7 kg/m2 No Primary Care Physician [facility] 07-22-2024 10:21-0400 Body weight 83.57 kg No Primary Care Physician [facility] 07-22-2024 10:21-0400 Diastolic blood pressure 73 mm[Hg] No Primary Care Physician [facility] 07-22-2024 10:21-0400 Systolic blood pressure 118 mm[Hg] No Primary Care Physician [facility] 07-12-2024 10:04-0400 Body mass index (BMI) [Ratio] 31.3 kg/m2 No Primary Care Physician [facility] 07-12-2024 10:04-0400 Body weight 85.33 kg No Primary Care Physician [facility] 07-12-2024 10:04-0400 Diastolic blood pressure 73 mm[Hg] No Primary Care Physician [facility] 07-12-2024 10:04-0400 Systolic blood pressure 116 mm[Hg] No Primary Care Physician [facility] 06-24-2024 14:26-0400 Body mass index (BMI) [Ratio] 30.5 kg/m2 No Primary Care Physician [facility] 06-24-2024 14:26-0400 Body weight 83.17 kg No Primary Care Physician [facility] 06-24-2024 14:26-0400 Diastolic blood pressure 73 mm[Hg] No Primary Care Physician [facility] 06-24-2024 14:26-0400 Systolic blood pressure 120 mm[Hg] No Primary Care Physician [facility] [facility] 06-14-2024 14:49-0400 Body mass index (BMI) [Ratio] 30.2 kg/m2 No Primary Care Physician [facility] 06-14-2024 14:49-0400 Body weight 82.55 kg No Primary Care Physician [facility] 06-14-2024 14:49-0400 Diastolic blood pressure 78 mm[Hg] No Primary Care Physician [facility] 06-14-2024 14:49-0400 Systolic blood pressure 129 mm[Hg] No Primary Care Physician [facility] 05-27-2024 14:51-0400 Body height 165.1 cm No Primary Care Physician [facility] 05-27-2024 14:51-0400 Body mass index (BMI) [Ratio] 30.1 kg/m2 No Primary Care Physician [facility] 05-27-2024 14:51-0400 Body weight 82.21 kg No Primary Care Physician [facility] 05-27-2024 14:51-0400 Diastolic blood pressure 66 mm[Hg] No Primary Care Physician [facility] 05-27-2024 14:51-0400 Systolic blood pressure 108 mm[Hg] No Primary Care Physician [facility] 05-13-2024 11:02-0500 Body mass index (BMI) [Ratio] 30.1 kg/m2 No Primary Care Physician [facility] 05-13-2024 11:02-0500 Body weight 82.15 kg No Primary Care Physician [facility] 05-13-2024 11:02-0500 Diastolic blood pressure 68 mm[Hg] No Primary Care Physician [facility] 05-13-2024 11:02-0500 Systolic blood pressure 110 mm[Hg] No Primary Care Physician [facility] 05-02-2024 10:42-0500 Body mass index (BMI) [Ratio] 29.7 kg/m2 No Primary Care Physician [facility] 05-02-2024 10:42-0500 Body weight 81.19 kg No Primary Care Physician [facility] 05-02-2024 10:25-0500 Body temperature 98.4 [degF] No Primary Care Physician [facility] 05-02-2024 10:25-0500 Diastolic blood pressure 67 mm[Hg] No Primary Care Physician [facility] 05-02-2024 10:25-0500 Heart rate 70 /min No Primary Care Physician [facility] 05-02-2024 10:25-0500 Respiratory rate 18 /min No Primary Care Physician [facility] 05-02-2024 10:25-0500 SaO2% (BldA) [Mass fraction] 99 % No Primary Care Physician [facility] 05-02-2024 10:25-0500 Systolic blood pressure 115 mm[Hg] No Primary Care Physician [facility] 04-25-2024 16:39-0500 Body temperature 97.7 [degF] [facility] MEAT CUTTER.DIRECTOR OF SOCIAL WORK Work Phone: [facility] 04-25-2024 16:39-0500 Body weight 81 [facility] ME[facility]TER.DIRECTOR OF SOCIAL WORK Work Phone: [facility] 04-25-2024 16:39-0500 Diastolic blood pressure 62 mm[Hg] [facility] MEAT C[facility]TER.DIRECTOR OF SOCIAL WORK Work Phone: [facility] 04-25-2024 16:39-0500 Heart rate 71 /min [facility] MEAT CUTTER.DIRECTOR OF SOCIAL WORK Work Phone: [facility] 04-25-2024 16:39-0500 Respiratory rate 20 /min [facility] MEAT CUTTER.DIRECTOR OF SOCIAL WORK Work Phone: [facility] 04-25-2024 16:39-0500 SaO2% (BldA) [Mass fraction] 99 % Nicolás Malik APRN.DIRECTOR OF SOCIAL WORK Work Phone: [facility] 04-25-2024 16:39-0500 Systolic blood pressure 100 mm[Hg] Nicolás Malik APRN.DIRECTOR OF SOCIAL WORK Work Phone: [facility] 04-15-2024 15:46-0500 Body mass index (BMI) [Ratio] 31.2 kg/m2 No Primary Care Physician [facility] 04-15-2024 15:46-0500 Body weight 80 kg No Primary Care Physician [facility] 04-15-2024 15:46-0500 Diastolic blood pressure 64 mm[Hg] No Primary Care Physician [facility] 04-15-2024 15:46-0500 Systolic blood pressure 98 mm[Hg] No Primary Care Physician [facility] 04-12-2024 15:55-0500 Body temperature 98.6 [degF] Shannon Newton APRN.DIRECTOR OF SOCIAL WORK Work Phone: [facility] 04-12-2024 15:55-0500 Body weight 80.2 kg Shannon Newotn APRN.DIRECTOR OF SOCIAL WORK Work Phone: [facility] 04-12-2024 15:55-0500 Diastolic blood pressure 66 mm[Hg] Shannon Newton APRN.DIRECTOR OF SOCIAL WORK Work Phone: [facility] 04-12-2024 15:55-0500 Heart rate 79 /min Shannon Newton APRN.DIRECTOR OF SOCIAL WORK Work Phone: [facility] 04-12-2024 15:55-0500 Respiratory rate 18 /min Shannon Newton APRN.DIRECTOR OF SOCIAL WORK Work Phone: [facility] 04-12-2024 15:55-0500 SaO2% (BldA) [Mass fraction] 98 % Shannon Newton APRN.DIRECTOR OF SOCIAL WORK Work Phone: [facility] 04-12-2024 15:55-0500 Systolic blood pressure 106 mm[Hg] Shannon Newton APRN.DIRECTOR OF SOCIAL WORK Work Phone: [facility] 03-22-2024 14:56-0500 Body mass index (BMI) [Ratio] 30.9 kg/m2 No Primary Care Physician [facility] 03-22-2024 14:56-0500 Body weight 79.37 kg No Primary Care Physician [facility] 03-22-2024 14:56-0500 Diastolic blood pressure 67 mm[Hg] No Primary Care Physician [facility] 03-22-2024 14:56-0500 Systolic blood pressure 108 mm[Hg] No Primary Care Physician [facility] 02-23-2024 09:39-0500 Body mass index (BMI) [Ratio] 30.6 kg/m2 No Primary Care Physician [facility] 02-23-2024 09:39-0500 Body weight 78.47 kg No Primary Care Physician [facility] 02-23-2024 09:39-0500 Diastolic blood pressure 72 mm[Hg] No Primary Care Physician [facility] 02-23-2024 09:39-0500 Systolic blood pressure 119 mm[Hg] No Primary Care Physician [facility] 12-26-2023 12:58-0400 Body temperature 99 [degF] Nicolás Helena MEAT CUTTER.DIRECTOR OF SOCIAL WORK Work Phone: [facility] 12-26-2023 12:58-0400 Body weight 81 kg Nicolás Pendcastro MEAT CUTTER.DIRECTOR OF SOCIAL WORK Work Phone: [facility] 12-26-2023 12:58-0400 Diastolic blood pressure 70 mm[Hg] Nicolás Pendlebury MEAT CUTTER.DIRECTOR OF SOCIAL WORK Work Phone: [facility] 12-26-2023 12:58-0400 Heart rate 78 /min Nicolás Pendcastro MEAT CUTTER.DIRECTOR OF SOCIAL WORK Work Phone: [facility] 12-26-2023 12:58-0400 Respiratory rate 20 /min Nicolás Pendlenithin MEAT CUTTER.DIRECTOR OF SOCIAL WORK Work Phone: [facility] 12-26-2023 12:58-0400 SaO2% (BldA) [Mass fraction] 99 % Nicolás Halllenithin MEAT CUTTER.DIRECTOR OF SOCIAL WORK Work Phone: [facility] 12-26-2023 12:58-0400 Systolic blood pressure 107 mm[Hg] Nicolás Pendlenithin MEAT CUTTER.DIRECTOR OF SOCIAL WORK Work Phone: [facility] 09-05-2023 09:59-0400 Body temperature 97.9 [degF] Krislyn Aberegg PA Work Phone: [facility] 09-05-2023 09:59-0400 Body weight 77.1 kg Krislyn Aberegg PA Work Phone: [facility] 09-05-2023 09:59-0400 Diastolic blood pressure 64 mm[Hg] Krislyn Aberegg PA Work Phone: [facility] 09-05-2023 09:59-0400 Heart rate 75 /min Krislyn Aberegg PA Work Phone: [facility] 09-05-2023 09:59-0400 Respiratory rate 18 /min Krislyn Aberegg PA Work Phone: [facility] 09-05-2023 09:59-0400 SaO2% (BldA) [Mass fraction] 98 % Krislyn Aberegg PA Work Phone: [facility] 09-05-2023 09:59-0400 Systolic blood pressure 112 mm[Hg] Krislyn Aberegg PA Work Phone: [facility] 06-09-2023 15:12-0400 Body height 160.02 cm No Primary Care Physician [facility] 06-09-2023 15:11-0400 Body mass index (BMI) [Ratio] 30.4 kg/m2 No Primary Care Physician [facility] 06-09-2023 15:11-0400 Body weight 78.01 kg No Primary Care Physician [facility] 06-09-2023 15:11-0400 Diastolic blood pressure 81 mm[Hg] No Primary Care Physician [facility] 06-09-2023 15:11-0400 Systolic blood pressure 131 mm[Hg] No Primary Care Physician [facility] 05-09-2023 11:23-0500 Body mass index (BMI) [Ratio] 30.8 kg/m2 No Primary Care Physician [facility] 05-09-2023 11:23-0500 Body weight 78.92 kg No Primary Care Physician [facility] 05-09-2023 11:23-0500 Diastolic blood pressure 78 mm[Hg] No Primary Care Physician [facility] 05-09-2023 11:23-0500 Systolic blood pressure 125 mm[Hg] No Primary Care Physician [facility] 05-05-2023 11:42-0500 Body temperature 98.29 [degF] Myah Praisler-Wood MEAT CUTTER.DIRECTOR OF SOCIAL WORK Work Phone: [facility] 05-05-2023 11:42-0500 Body weight 79.74 kg Myah Praisler-Wood MEAT CUTTER.DIRECTOR OF SOCIAL WORK Work Phone: [facility] 05-05-2023 11:42-0500 Diastolic blood pressure 80 mm[Hg] Myah Praisler-Wood MEAT CUTTER.DIRECTOR OF SOCIAL WORK Work Phone: [facility] 05-05-2023 11:42-0500 Heart rate 85 /min Myah Praisler-Wood MEAT CUTTER.DIRECTOR OF SOCIAL WORK Work Phone: [facility] 05-05-2023 11:42-0500 Respiratory rate 16 /min Myah Praisler-Wood MEAT CUTTER.DIRECTOR OF SOCIAL WORK Work Phone: [facility] 05-05-2023 11:42-0500 SaO2% (BldA) [Mass fraction] 99 % Myah Praisler-Wood MEAT CUTTER.DIRECTOR OF SOCIAL WORK Work Phone: [facility] 05-05-2023 11:42-0500 Systolic blood pressure 130 mm[Hg] Myah Praisler-Wood MEAT CUTTER.DIRECTOR OF SOCIAL WORK Work Phone: [facility] 04-30-2023 12:00-0500 Body temperature 98.2 [degF] No Primary Care Physician [facility] 04-30-2023 12:00-0500 Diastolic blood pressure 67 mm[Hg] No Primary Care Physician [facility] 04-30-2023 12:00-0500 Heart rate 84 /min No Primary Care Physician [facility] 04-30-2023 12:00-0500 Respiratory rate 16 /min No Primary Care Physician [facility] 04-30-2023 12:00-0500 SaO2% (BldA) [Mass fraction] 99 % No Primary Care Physician [facility] 04-30-2023 12:00-0500 Systolic blood pressure 120 mm[Hg] No Primary Care Physician [facility] 04-28-2023 02:23-0500 Body height 160.02 cm No Primary Care Physician [facility] 04-28-2023 02:23-0500 Body mass index (BMI) [Ratio] 34.9 kg/m2 No Primary Care Physician [facility] 04-28-2023 02:23-0500 Body weight 89.3 kg No Primary Care Physician [facility] 04-23-2023 09:56-0500 Body height 160.02 cm No Primary Care Physician [facility] 04-23-2023 09:56-0500 Body mass index (BMI) [Ratio] 34.5 kg/m2 No Primary Care Physician [facility] 04-23-2023 09:56-0500 Body temperature 98.4 [degF] No Primary Care Physician [facility] 04-23-2023 09:56-0500 Body weight 88.45 kg No Primary Care Physician [facility] 04-23-2023 09:56-0500 Diastolic blood pressure 60 mm[Hg] No Primary Care Physician [facility] 04-23-2023 09:56-0500 Heart rate 90 /min No Primary Care Physician [facility] 04-23-2023 09:56-0500 Respiratory rate 14 /min No Primary Care Physician [facility] 04-23-2023 09:56-0500 SaO2% (BldA) [Mass fraction] 99 % No Primary Care Physician [facility] 04-23-2023 09:56-0500 Systolic blood pressure 118 mm[Hg] No Primary Care Physician [facility] 04-21-2023 15:30-0500 Body mass index (BMI) [Ratio] 32.8 kg/m2 No Primary Care Physician [facility] 04-21-2023 15:30-0500 Body weight 86.63 kg No Primary Care Physician [facility] 04-21-2023 15:30-0500 Diastolic blood pressure 76 mm[Hg] No Primary Care Physician [facility] 04-21-2023 15:30-0500 Systolic blood pressure 122 mm[Hg] No Primary Care Physician [facility] 04-03-2023 14:32-0500 Body height 162.56 cm No Primary Care Physician [facility] 04-03-2023 14:32-0500 Body mass index (BMI) [Ratio] 32.8 kg/m2 No Primary Care Physician [facility] 04-03-2023 14:32-0500 Body weight 86.63 kg No Primary Care Physician [facility] 04-03-2023 14:32-0500 Diastolic blood pressure 74 mm[Hg] No Primary Care Physician [facility] 04-03-2023 14:32-0500 Systolic blood pressure 114 mm[Hg] No Primary Care Physician [facility] 02-27-2023 15:29-0500 Body mass index (BMI) [Ratio] 30.4 kg/m2 No Primary Care Physician [facility] 02-27-2023 15:29-0500 Body weight 80.39 kg No Primary Care Physician [facility] 02-27-2023 15:29-0500 Diastolic blood pressure 65 mm[Hg] No Primary Care Physician [facility] 02-27-2023 15:29-0500 Systolic blood pressure 113 mm[Hg] No Primary Care Physician [facility] 02-17-2023 15:16-0500 Body height 162.56 cm No Primary Care Physician [facility] 02-17-2023 15:15-0500 Body mass index (BMI) [Ratio] 30 kg/m2 No Primary Care Physician [facility] 02-17-2023 15:15-0500 Body weight 79.37 kg No Primary Care Physician [facility] 02-17-2023 15:15-0500 Diastolic blood pressure 66 mm[Hg] No Primary Care Physician [facility] 02-17-2023 15:15-0500 Systolic blood pressure 101 mm[Hg] No Primary Care Physician [facility] 01-06-2023 14:12-0400 Body mass index (BMI) [Ratio] 28.7 kg/m2 No Primary Care Physician [facility] 01-06-2023 14:12-0400 Body weight 75.86 kg No Primary Care Physician [facility] 01-06-2023 14:12-0400 Diastolic blood pressure 62 mm[Hg] No Primary Care Physician [facility] 01-06-2023 14:12-0400 Systolic blood pressure 126 mm[Hg] No Primary Care Physician [facility] 12-09-2022 11:11-0400 Body mass index (BMI) [Ratio] 26.4 kg/m2 No Primary Care Physician [facility] 12-09-2022 11:11-0400 Body weight 69.85 kg No Primary Care Physician [facility] 12-09-2022 11:11-0400 Diastolic blood pressure 57 mm[Hg] No Primary Care Physician [facility] 12-09-2022 11:11-0400 Systolic blood pressure 101 mm[Hg] No Primary Care Physician [facility] 11-11-2022 10:09-0400 Body height 162.56 cm No Primary Care Physician [facility] 11-11-2022 10:08-0400 Body mass index (BMI) [Ratio] 25.6 kg/m2 No Primary Care Physician [facility] 11-11-2022 10:08-0400 Body weight 67.64 kg No Primary Care Physician [facility] 11-11-2022 10:08-0400 Diastolic blood pressure 75 mm[Hg] No Primary Care Physician [facility] 11-11-2022 10:08-0400 Systolic blood pressure 113 mm[Hg] No Primary Care Physician [facility] 10-14-2022 08:42-0400 Body height 162.[address] Meena Luciano Work Phone: [facility] 10-14-2022 08:42-0400 Body mass index (BMI) [Ratio] 25.7 kg/m2 Dr. Meena Luciano Work Phone: [facility] 10-14-2022 08:42-0400 Diastolic blood pressure 67 mm[Hg] Dr. Meena Luciano Work Phone: [facility] 10-14-2022 08:42-0400 Systolic blood pressure 118 mm[Hg] Dr. Meena Luciano Work Phone: [facility] 10-14-2022 08:35-0400 Body weight 68.[address] Meena Luciano Work Phone: [facility] 09-08-2022 13:07-0400 Body mass index (BMI) [Ratio] 26.8 kg/m2 Dr. Meena Luciano Work Phone: [facility] 09-08-2022 13:07-0400 Body weight 70.[address] Meena Luciano Work Phone: [facility] 09-08-2022 13:07-0400 Diastolic blood pressure 65 mm[Hg] Dr. Meena Luciano Work Phone: [facility] 09-08-2022 13:07-0400 Systolic blood pressure 112 mm[Hg] Dr. Meena Luciano Work Phone: [facility] 06-14-2022 12:53-0400 Body temperature 97.2 [degF] Sherri Urszula MEAT CUTTER.DIRECTOR OF SOCIAL WORK Work Phone: [facility] 06-14-2022 12:53-0400 Body weight 75.3 kg Sherri Urszula MEAT CUTTER.DIRECTOR OF SOCIAL WORK Work Phone: [facility] 06-14-2022 12:53-0400 Diastolic blood pressure 68 mm[Hg] Sherri Urszula MEAT CUTTER.DIRECTOR OF SOCIAL WORK Work Phone: [facility] 06-14-2022 12:53-0400 Heart rate 78 /min Sherri Urszula MEAT CUTTER.DIRECTOR OF SOCIAL WORK Work Phone: [facility] 06-14-2022 12:53-0400 Respiratory rate 16 /min Sherri Urszula MEAT CUTTER.DIRECTOR OF SOCIAL WORK Work Phone: [facility] 06-14-2022 12:53-0400 SaO2% (BldA) [Mass fraction] 99 % Sherri Urszula MEAT CUTTER.DIRECTOR OF SOCIAL WORK Work Phone: [facility] 06-14-2022 12:53-0400 Systolic blood pressure 110 mm[Hg] Sherri Urszula MEAT CUTTER.DIRECTOR OF SOCIAL WORK Work Phone: [facility] Encounters Encounter Date Encounter Type Care Provider Facility Start: 09-24-2024 End: 09-24-2024 ambulatory No Primary Care Physician -[facility] Start: 09-24-2024 End: 09-24-[address] Katelin Goins DO -[facility] Work Phone: Start: 08-27-2024 End: 08-27-[address] Katelin Goins DO -[facility] Work Phone: Start: 08-27-2024 End: 08-27-2024 ambulatory No Primary Care Physician [facility] Work Phone: Start: 08-27-2024 End: 08-27-2024 ambulatory No Primary Care Physician [facility] Work Phone: Start: 08-27-2024 End: 08-27-[address] Meena Luciano MD -[facility] Work Phone: Start: 08-21-2024 ambulatory No Primary Car e Physician Facility:[facility] Start: 08-15-2024 Non-patient / Non-visit Dr. Meena Luciano MD -[facility] Start: 08-15-2024 ambulatory No Primary Car e Physician Facility:[facility] Start: 08-13-2024 Non-patient / Non-visit Dr. Meena Luciano MD -[facility] Start: 08-12-2024 Non-patient / Non-visit Dr. Meena Luciano MD -[facility] Start: 08-11-2024 ambulatory No Primary Car e Physician Facility:[facility] Start: 08-11-2024 End: 08-13-2024 Evaluation and management of inpatient Dr. Meena Luciano MD -[facility] Work Phone: Start: 08-08-2024 End: 08-08-2024 Patient encounter procedure Anna Marin CNM -[facility] Work Phone: Start: 08-08-2024 End: 08-08-2024 ambulatory No Primary Care Physician [facility] Work Phone: Start: 08-02-2024 End: 08-02-2024 Patient encounter procedure Anna Marin CNM -[facility] Work Phone: Start: 08-02-2024 End: 08-02-2024 ambulatory No Primary Care Physician Facility:[facility] Start: 07-22-2024 End: 07-22-[address] Katelin Goins DO -[facility] Work Phone: Start: 07-22-2024 End: 07-22-2024 ambulatory No Primary Care Physician Facility:[facility] Start: 07-12-2024 End: 07-12-2024 Patient encounter procedure Anna BURROUGHS -[facility] Work Phone: Start: 07-12-2024 End: 07-12-2024 ambulatory No Primary Care Physician Facility:[facility] Start: 06-24-2024 End: 06-24-2024 Patient encounter procedure Anna BURROUGHS -[facility] Work Phone: Start: 06-24-2024 End: 06-24-2024 ambulatory No Primary Care Physician Facility:[facility] Start: 06-14-2024 End: 06-14-[address] Meena Luciano MD -[facility] Work Phone: Start: 06-14-2024 End: 06-14-2024 ambulatory No Primary Care Physician Facility:[facility] Start: 05-27-2024 End: 05-27-2024 Patient encounter procedure Anna BURROUGHS -[facility] Work Phone: Start: 05-27-2024 End: 05-27-2024 ambulatory No Primary Care Physician [facility] Work Phone: Start: 05-27-2024 End: 05-27-2024 ambulatory Anna Marin Facility:[facility] Start: 05-13-2024 End: 05-13-2024 Patient encounter procedure Anna BURROUGHS -[facility] Work Phone: Start: 05-13-2024 End: 05-13-2024 ambulatory No Primary Care Physician Facility:[facility] Start: 05-02-2024 Non-patient / Non-visit Dr. Meena Luciano MD -[facility] Start: 05-02-2024 End: 05-02-2024 ambulatory Meena Luciano Facility:[facility] Start: 05-02-2024 End: 05-02-[address] Meena Luciano MD -[facility] Work Phone: Start: 04-25-2024 End: 04-25-2024 ambulatory Facility:[facility] Start: 04-25-2024 End: 04-25-2024 Office outpatient visit 25 minutes Nicolás Malik MEAT CUTTER.DIRECTOR OF SOCIAL WORK Work Phone: [facility] Comment on above: Acute otitis media, right (Primary Dx) Start: 04-15-2024 End: 04-15-2024 Patient encounter procedure Mary Joya NP- -[facility] Work Phone: Start: 04-15-2024 End: 04-15-2024 ambulatory Mary Joya NP Facility:[facility] Start: 04-12-2024 End: 04-12-2024 ambulatory Facility:[facility] Start: 04-12-2024 End: 04-12-2024 Patient encounter procedure Shannon Newton APRN.DIRECTOR OF SOCIAL WORK Work Phone: [facility] Comment on above: URI, acute (Primary Dx) Start: 03-27-2024 End: 03-27-2024 ambulatory MD NO PRIMARY CARE [facility] Start: 03-22-2024 End: 03-22-[address] Meena Luciano MD -[facility] Work Phone: Start: 03-22-2024 End: 03-22-2024 ambulatory No Primary Care Physician Facility:[facility] Start: 02-23-2024 End: 02-23-[address] Katelin Goins DO -[facility] Work Phone: Start: 02-23-2024 End: 02-23-2024 ambulatory No Primary Care Physician Facility:[facility] Start: 02-23-2024 End: 02-23-2024 ambulatory No Primary Care Physician Facility:[facility] Start: 12-27-2023 ambulatory No Primary Car e Physician Facility:[facility] Start: 12-26-2023 End: 12-26-2023 ambulatory Facility:[facility] Start: 12-26-2023 End: 12-26-2023 Office outpatient visit 25 minutes Nicolás Malik APRN.DIRECTOR OF SOCIAL WORK Work Phone: [facility] Comment on above: Lower resp. tract in fection (Primary Dx) Start: 12-21-2023 End: 12-21-2023 ambulatory No Primary Care Physician Facility:[facility] Start: 12-21-2023 End: 12-21-2023 ambulatory No Primary Care Physician Facility:[facility] Start: 09-05-2023 End: 09-05-2023 ambulatory Facility:[facility] Start: 09-05-2023 End: 09-05-2023 Patient encounter procedure Dwight Duran PA Work Phone: [facility] Comment on above: URI, acute (Primary Dx); Sore throat Start: 06-09-2023 End: 06-09-2023 ambulatory No Primary Care Physician [facility] Work Phone: Start: 06-09-2023 End: 06-09-2023 Patient encounter procedure No Primary Care Physician [facility] Work Phone: Start: 06-09-2023 End: 06-09-2023 Patient encounter procedure No Primary Care Physician [facility] Work Phone: Start: 05-09-2023 End: 05-09-2023 Patient encounter procedure No Primary Care Physician [facility] Work Phone: Start: 05-05-2023 End: 05-05-2023 ambulatory Facility:[facility] Start: 05-05-2023 End: 05-05-2023 Patient encounter procedure Myah Newell APRN.DIRECTOR OF SOCIAL WORK Work Phone: [facility] [employer] [facility] Comment on above: Sore throat (Primary Dx) Start: 04-30-2023 Non-patient / Non-visit No Primary Care Physician [facility] Start: 04-29-2023 Non-patient / Non-visit No Primary Care Physician [facility] Start: 04-28-2023 Non-patient / Non-visit No Primary Care Physician [facility] Start: 04-28-2023 End: 04-30-2023 Evaluation and management of inpatient No Primary Care Physician [facility] Work Phone: Start: 04-23-2023 End: 04-23-2023 Patient encounter procedure No Primary Care Physician [facility] Work Phone: Start: 04-21-2023 End: 04-21-2023 ambulatory No Primary Care Physician [facility] Work Phone: Start: 04-21-2023 End: 04-21-2023 Patient encounter procedure No Primary Care Physician [facility] Work Phone: Start: 04-21-2023 End: 04-21-2023 Patient encounter procedure No Primary Care Physician [facility] Work Phone: Start: 04-11-2023 End: 04-11-2023 ambulatory No Primary Care Physician [facility] Work Phone: Start: 04-11-2023 End: 04-11-2023 Patient encounter procedure No Primary Care Physician [facility] Work Phone: Start: 04-03-2023 End: 04-03-2023 Patient encounter procedure No Primary Care Physician [facility] Work Phone: Start: 02-27-2023 End: 02-27-2023 Patient encounter procedure No Primary Care Physician [facility] Work Phone: Start: 02-17-2023 End: 02-17-2023 ambulatory No Primary Care Physician [facility] Work Phone: Start: 02-17-2023 End: 02-17-2023 Patient encounter procedure No Primary Care Physician [facility] Work Phone: Start: 01-06-2023 End: 01-06-2023 Patient encounter procedure No Primary Care Physician [facility] Work Phone: Start: 12-09-2022 End: 12-09-2022 Patient encounter procedure No Primary Care Physician [facility] Work Phone: Start: 11-11-2022 End: 11-11-2022 ambulatory No Primary Care Physician [facility] Work Phone: Start: 11-11-2022 End: 11-11-2022 Patient encounter procedure No Primary Care Physician [facility] Work Phone: Start: 11-11-2022 End: 11-11-2022 Patient encounter procedure No Primary Care Physician [facility] Work Phone: Start: 10-14-2022 End: 10-14-[address] Meena Luciano Work Phone: [facility] Work Phone: Start: 10-14-2022 End: 10-14-[address] Meena Luciano Work Phone: [facility] Work Phone: Start: 09-08-2022 End: 09-08-[address] Meena Luciano Work Phone: [facility] Work Phone: Start: 06-14-2022 End: 06-14-2022 Subsequent hospital visit by physician Bebeto [facility] Mariya Work Phone: Radiology Comment on above: Injury of right hand , initial encounter [S69.91XA] Start: 06-14-2022 End: 06-14-2022 Patient encounter procedure Sherri Seaman APRN.DIRECTOR OF SOCIAL WORK Work Phone: [facility] Comment on above: Injury of right hand , initial encounter (Primary Dx); Pain of finger of right hand Start: 12-05-2016 End: 12-05-2016 Ambulatory [facility] Procedures Date Procedure Procedure Detail Performing Clinician Start: 08-13-2024 Procedure No Primary Care Physician Comment on above: Performed at: [address] Director: William Goodman PhD, Phone: [phone] Start: 08-12-2024 Methadone measuremen t, urine No Primary Care Physician Start: 08-11-2024 Estimated creatinine clearance No Primary Care Physician Start: 08-11-2024 Fibrinogen assay, quantitative No Primary Care Physician Start: 08-11-2024 Serologic test for syphilis No Primary Care Physician Start: 05-27-2024 Serologic test for syphilis No Primary Care Physician Start: 05-02-2024 Fibrinogen assay, quantitative No Primary Care Physician Start: 09-05-2023 STREP A MOLECULAR (POC) Dwight Duran PA Work Phone: Start: 05-05-2023 STREP A MOLECULAR (POC) Myah Newell APRN.DIRECTOR OF SOCIAL WORK Work Phone: Start: 04-21-2023 Group B Streptococcu s Culture No Primary Care Physician Start: 04-11-2023 Ultrasound scan for growth No Primary Care Physician Start: 11-11-2022 Urine culture No Primar y Care Physician Start: 10-14-[address] 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 (DELPHINE out of office all week) H/O: section Previous c esarean section Dr. Katelin Goins DO H/O: section Previous c esarean section Dr. Meena Luciano MD H/O: section Previous c esarean section Mary BRANDTC H/O: section Previous c esarean section Anna Marin CNM H/O: section Previous c esarean section Anna Marin CNM H/O: section Previous c esarean section Dr. Meena Luciano MD H/O: section Previous c esarean section Anna Marin CNM H/O: section Previous c esarean section Anna Marin CNM H/O: section Previous c esarean section Dr. Katelin Goins DO H/O: section Previous c esarean section Anna Marin CNM H/O: section Previous c esarean section Anna Marin CNM Plan of Treatment Date Care Activity Detail Author Start: 02-17-2033 Urine microalbumin profile DTaP,Tdap,Td Vaccine (2 - Td or Tdap) [facility] Start: 08-13-2024 Procedure [facility] Start: 08-13-2024 Urine opiate measurement [facility] Start: 08-13-2024 Patient discharge [facility] Start: 08-13-2024 Application of abdominal corset [facility] Start: 08-12-2024 Application of abdominal corset [facility] Start: 08-12-2024 Administration of medication [facility] Start: 08-12-2024 Ambulation therapy management [facility] Start: 08-12-2024 Application of device [facility] Start: 08-12-2024 Application of intermittent pneumatic compression device [facility] Start: 08-12-2024 Assessment of risk of venous thromboembolism [facility] Start: 08-12-2024 Catheterization of vein [facility] Start: 08-12-2024 Deep breathing and coughing exercises [facility] Start: 08-12-2024 Exercises [facility] Start: 08-12-2024 Measuring intake and output [facility] Start: 08-12-2024 Notification of physician [facility] Start: 08-12-2024 Procedure discontinued [facility] Start: 08-12-2024 Provision of activity privileges [facility] Start: 08-12-2024 Skin care [facility] Start: 08-12-2024 Vital signs measurements [facility] Start: 08-12-2024 Wound care [facility] Start: 08-12-2024 End: 08-12-2024 Consultation [facility] Start: 08-12-2024 End: 08-12-2024 [facility] Start: 08-11-2024 Admission procedure [facility] Start: 05-21-2024 PAP TESTING PAP TESTING [facility] Start: 05-21-2024 Screening for malignant neoplasm of cervix Pap Testing [facility] Start: 05-02-2024 Nonstress test [facility] Start: 05-02-2024 Obstetric monitoring [facility] Start: 05-02-2024 Vital signs measurements [facility] Start: 05-02-2024 [facility] Start: 05-02-2024 Patient discharge [facility] Start: 11-12-2023 Covid-19 Vaccine () Covid-19 Vaccine () [facility] Start: 11-12-2023 Influenza vaccination [facility] Start: 06-09-2023 Liquid based cervical cytology screening [facility] Start: 04-30-2023 Patient discharge [facility] Start: 04-29-2023 Application of abdominal corset [facility] Start: 04-28-2023 End: 04-29-2023 [facility] Start: 04-28-2023 Administration of medication [facility] Start: 04-28-2023 Ambulation therapy management [facility] Start: 04-28-2023 Application of device [facility] Start: 04-28-2023 Application of intermittent pneumatic compression device [facility] Start: 04-28-2023 Assessment of risk of venous thromboembolism [facility] Start: 04-28-2023 Catheterization of vein [facility] Start: 04-28-2023 Deep breathing and coughing exercises [facility] Start: 04-28-2023 Exercises [facility] Start: 04-28-2023 Measuring intake and output [facility] Start: 04-28-2023 Notification of physician [facility] Start: 04-28-2023 Procedure discontinued [facility] Start: 04-28-2023 Provision of activity privileges [facility] Start: 04-28-2023 Skin care [facility] Start: 04-28-2023 Vital signs measurements [facility] Start: 04-28-2023 Wound care [facility] Start: 04-28-2023 Application of abdominal corset [facility] Start: 04-28-2023 Admission procedure [facility] Start: 04-28-2023 [facility] Start: 04-28-2023 Consultation [facility] Start: 03-13-2023 Behavioral Health Screening Behavioral Health Screening [facility] Start: 03-13-2023 Depression Assessment Depression Assessment [facility] Start: 11-11-2022 Covid-19 Vaccine () Covid-19 Vaccine () [facility] Start: 11-11-2022 Influenza vaccination [facility] Start: 05-21-2022 Screening for malignant neoplasm of cervix Cervical Cancer Screening [facility] Start: 03-13-2022 DEPRESSION ASSESSMENT DEPRESSION ASSESSMENT [facility] Start: 2020 HPV TESTING HPV TESTING [facility] Start: 2020 Screening for malignant neoplasm of cervix HPV Testing [facility] Start: 2009 Hepatitis B Vaccine (1 of 3 - 19+ 3-dose series) Hepatitis B Vaccine (1 of 3 - 19+ 3-dose series) [facility] Start: 2009 Pneumococcal vaccination Pneumococcal Vaccine (1 of 2 - PCV) [facility] Start: 2009 Urine microalbumin profile DTAP,TDAP,TD (1 - Tdap) [facility] Start: 2008 Anxiety Screening Anxiety Screening [facility] Start: 2008 Depression Screening Depression Screening [facility] Start: 2008 HEPATITIS C SCREENING HEPATITIS C SCREENING [facility] Start: 2008 Hepatitis C screening Hepatitis C Screening [facility] Start: 2008 HIV SCREENING HIV SCREENING [facility] Start: 2008 HIV screening HIV Screening [facility] Start: 1996 PNEUMOCOCCAL (1 - PCV) PNEUMOCOCCAL (1 - PCV) [facility] Start: 1996 Pneumococcal vaccination Pneumococcal Vaccine (1 of 2 - PCV) [facility] Start: 05-03-1991 COVID-19 VACCINE (#1) COVID-19 VACCINE (#1) [facility] Start: 1990 HEPATITIS B (1 of 3 - 3-dose series) HEPATITIS B (1 of 3 - 3-dose series) [facility] Start: 1990 Hepatitis B Vaccine (1 of 3 - 3-dose series) Hepatitis B Vaccine (1 of 3 - 3-dose series) [facility] Opiates [Mass/volume ] in Urine by Confirmatory method [facility] Path report.final Dx Spec [facility] Patient Education OB Triage: Ret urn to Hospital or Notify Physician if you Experience: [facility] Work Phone: Patient referral [facility] Work Phone: Transvaginal obstetr ic ultrasonography [facility] Ultrasonography in f irst trimester [facility] Immunizations Immunization Date Immunization Notes Care Provider Fa cility 07-12-2024 tetanus toxoid, redu marlena diphtheria toxoid, and acellular pertussis vaccine, adsorbed No Primary Care Physician [facility] 02-17-2023 tetanus toxoid, redu marlena diphtheria toxoid, and acellular pertussis vaccine, adsorbed No Primary Care Physician [facility] Payers Date Payer Category Payer Self-pay [id number] 2023 Medicaid [id number] 2023 Unknown [id number] 2023 Unknown [id number] 2022 Unknown [id number] 1990 Unknown [id number] 2.16.840.1.342891.3.579.2.4 79 1959 Self-pay [id number] Private Health Insurance [facility] *DONOTUSE [id number] Private Health Insurance [facility] [id number] Unknown [facility] PACKAGE PLAN [id number] Unknown [id number] 2.16.840.1.759234.3.579.2.4 62 Unknown [id number] 2.16.840.1.357044.3.579.2.4 62 Unknown [id number] 2.16.840.1.949202.3.579.2.4 62 Unknown [id number] 2.16.840.1.235358.3.579.2.4 62 Unknown [id number] 2.16.840.1.176457.3.579.2.4 62 Unknown [id number] 2.16.840.1.392054.3.579.2.4 62 Unknown [id number] 2.16.840.1.764371.3.579.2.4 62 Unknown [id number] 2.16.840.1.106748.3.579.2.4 62 Unknown [id number] 2.16.840.1.494795.3.579.2.4 62 Unknown [id number] 2.16.840.1.972681.3.579.2.4 62 Unknown [id number] 2.16.840.1.856076.3.579.2.4 62 Unknown [id number] 2.16.840.1.522814.3.579.2.4 62 Unknown [id number] 2.16.840.1.928190.3.579.2.4 62 Unknown [id number] 2.16.840.1.744541.3.579.2.4 62 Unknown [id number] 2.16.840.1.025486.3.579.2.4 62 Unknown [id number] 2.16.840.1.466451.3.579.2.4 62 Unknown [id number] 2.16.840.1.980221.3.579.2.4 62 Unknown [id number] 2.16.840.1.721941.3.579.2.4 62 Unknown [id number] 2.16.840.1.561897.3.579.2.4 62 Unknown [id number] 2.16.840.1.036068.3.579.2.4 62 Unknown [id number] 2.16.840.1.460737.3.579.2.4 62 Unknown [id number] 2.16.840.1.220977.3.579.2.4 62 Unknown [id number] 2.16.840.1.766699.3.579.2.4 62 Unknown [id number] 2.16.840.1.115715.3.579.2.4 62 Unknown [id number] 2.16.840.1.232246.3.579.2.4 62 Social History Date Type Detail Facility Start: 06-14-2022 End: 08-11-2024 Tobacco smoking status WYIS Smokes tobacco daily [facility] History of tobacco use Cigarette Smoker [facility] Start: 06-14-2022 Tobacco use and exposure Smoke less tobacco non-user [facility] Start: 06-14-2022 End: 04-25-2024 Alcohol intake Current drinker of alcohol (finding) [facility] Start: 05-22-2019 History SDOH Alcohol Frequency 4 [facility] Start: 05-22-2019 History SDOH Alcohol Std Drinks 3 [facility] Start: 05-22-2019 History SDOH Social Connections Phone 1 [facility] Start: 05-22-2019 History SDOH Social Connections Membership 2 [facility] Start: 05-22-2019 History SDOH Social Connections Living 8 [facility] Start: 05-22-2019 History SDOH Physica l Activity DPW 7 [facility] Start: 05-22-2019 History SDOH Physica l Activity MPS 15 [facility] Start: 05-22-2019 History SDOH Stress 5 [facility] Start: 06-14-2022 Tobacco Comment 4-5 a day [facility] Start: 1990 Sex Assigned At Not on file [facility] Start: 10-14-2022 End: 06-09-2023 Tobacco smoking status NHIS Unknown if ever smoked [facility] Start: 1990 Sex Assigned At Female [facility] Start: 05-22-2019 End: 02-18-2020 [facility] Start: 05-22-2019 End: 02-18-2020 Social connection and isolation panel [facility] Do you belong to any clubs or organizations such as anabaptist groups, unions, fraternal or athletic groups, or school groups? No [facility] Are you now , , , , never or living with a partner? Living with partner [facility] How often to you hav e a drink containing alcohol? 2-3 time sa week [facility] How many standard dr inks containing alcohol do you have on a typical day? 5 or 6 [facility] How often do you hav e 6 or more drinks on 1 occasion? Weekly [facility] How hard is it for y ou to pay for the very basics like food, housing, medical care, and heating Not hard at all [facility] Do you feel stress - tense, restless, nervous, or anxious, or unable to sleep at night because your mind is troubled all the time - these days [OSQ] Very much [facility] (I/We) worried wheromana er (my/our) food would run out before (I/we) got money to buy more. Never true [facility] Start: 12-03-2023 [facility] Start: 12-21-2023 Tobacco smoking stat us NHIS Ex-smoker (finding) [facility] Start: 06-05-2024 Sex Female (finding) [facility] Goals Date Patient Goal Desired Activity /State Clinical Notes 06-14-2022 to 09-24-2024 Note Date & Type Note Facility 09-24-2024 Progress note [facility] 08-15-2024 Note [facility] Medical Records Department [address] [place] [address] Discharge Summary 08/15/24 2234 MR#: [id number] Acct: [id number] Name: DAVID POST Rep #: [id number] : 1990 33 From: Meena Luciano MD PCP: Care Physician,No Primary Status:DIS IN Location: [id number] Providers Date of Admission: 08/11/24 Primary Care Physician: No Primary Care Phys Reason For Visit: LABOR Diagnosis Discharge Diagnosis (1) delivery delivered: Status: Acute Code(s): O82 - Encounter for delivery without indication (2) Uterine rupture: Status: Acute Code(s): S37.69XA - Other injury of uterus, initial encounter Plan s/p LTCS PPD # 1 1. routine post care 2. breast feeding- support given 3. rh positive 4. rubella immune Medications at Discharge Home Medications multivitamin no.47-iron fum 27 mg-folate no.1 1 mg-dha 300 mg capsule (PNV-DHA) 1 cap PO DAILY 09/02/22 naproxen 500 mg tablet 500 mg PO BID PRN PRN Pain #30 tabs 08/12/24 oxycodone-acetaminophen 5 mg-325 mg tablet (Percocet) 1 tab PO Q4H PRN pain 7 days #20 tabs 08/12/24 Hospital Course Summary of Care Provided Hospital Course: patient presented for rule out labor and had a bradycardia therefore the deciison to not undergo a TOLAC was made and patient underwent a RLTCS Postoperatively patient had return of bowel and bladder function and was ambulating well, tolerating adequate p.o., and was stable for discharge to home on postop day #2. Discharge medications naproxen and Percocet. Follow-up in office in 2 weeks for incision check in 6 weeks for visit. Routine post section diet and activity instructions. Weight / BMI Weight Weight: 189 lb Body Mass Index (BMI) 33.5 ABG / Lab / Microbiology Data 08/12/24 07:45 08/11/24 23:15 Laboratory: Laboratory Results - last 24 hr 08/13/24 14:15: Miscellaneous Test 2 COMMENT D/C Instructions Discharge Diet: No restrictions Discharge Activity: May Not Drive (for 2 weeks or while taking narcotic pain medications.), May Shower and May Take a Tub Bath (in 7 days) May shower in (days): 0 May resume sexual activity in: 4-6 weeks Weight Bearing Status: Full weight bearing Call your doctor if your incision/area has: Continuous Slow Oozing, Sudden Increased Bleeding, Increased Pain/ Swelling, Increased Redness and Foul Smelling Discharge Call your doctor if you observe: Fever of 101 or Higher and Using more than 1 pad per hour (for 2 hours) Suture Line Care: Avoid Pulling/Pushing and Avoid Pinching/Bending Cleanse incision/area with: Soap Water and Keep Dressing Clean Dry DC O2, CPAP, BIPAP Needs Home O2 Discharge instructions: No Please Follow Up With: Meena Luciano MD When: Call [phone] to make an appointment for an incision check in 1-2 weeks. Meaningful Use Info Meaningful Use Meaningful Use Diagnoses (Choose all that apply): None applicable Ischemic Stroke Statin Dosing Therapy Reference: STATIN DOSE THERAPY REFERENCE: * Patients > 75 years receive moderate or high dose statin therapy. * Patients 75 years or YOUNGER should receive HIGH intensity statin dose unless contraindicated. You will be required to document reason for non-treatment if statin daily dose does not meet guidelines. HIGH DOSE STATIN THERAPY DAILY Atorvastatin > than or = to 40 mg Rosuvastatin > than or = to 20 mg Amlodipine + Atorvastatin > than or = to 2.5/40 mg Ezetimibe + Simvastatin 10/80 mg Simvastatin 80mg Discharge Plan Admission Admit Date/Time: 08/11/24 23:33 Attending Provider: Meena Luciano Primary Care Provider: Care Physician,Mahsa Primary Discharge Orders/Prescriptions Prescriptions: New oxycodone-acetaminophen [Percocet] 5-325 mg tablet 1 tab PO Q4H PRN (Reason: pain) 7 Days Qty: 20 0RF naproxen 500 mg tablet 500 mg PO BID PRN PRN (Reason: Pain) Qty: 30 1RF No Action PNV-DHA 27 mg iron-1 mg -300 mg capsule 1 cap PO DAILY Referrals / Follow Up: Care Physician,No Primary [Primary Care Provider] - Disposition Disposition (needs filled in before D/C Order can be placed): Home, Self Care 08/15/242234 Cosigner Signature (if applicable): CC: Dr. Meena Luciano MD; No Primary Care Physician Signed [facility] 08-13-2024 Progress note [facility] 08-13-2024 Progress note Note Date/Time August 13, 2024 4:30pm [facility] Medical Records Department [address] [place] [address] Progress Note - OBGYN 08/13/24 1143 MR#: [id number] Acct: [id number] Name: DAVID POST Rep #:[id number] : 1990 33 From: Meena jenkins MD PCP: Care Physician,No Primary Status :ADM IN Location: [place] [address] Subjective Subjective Patient doing well without complaints. Tolerating PO. infant feeding well. Denies chest pain, shortness of breath, calf pain/swelling, fevers, chills, lightheadedness. Objective Data Objective Data Vital Signs: Vital Signs Temp Pulse Resp BP Pulse Ox O2 Del Method 97.7 F L 71 16 115/77 98 Room Air 08/13/24 08:39 08/13/24 08:39 08/13/24 08:39 08/13/24 08:39 08/13/24 08:39 08/13/24 08:39 Oxygen Delivery Method Room Air Weight: 189 lb Body Mass Index (BMI) 33.5 Intake & Output: Intake and Output for Last 24 Hours 08/11/24 08/12/24 08/13/24 23:59 23:59 23:59 Intake Total 1837.33 / 1837.33 Output Total 2600 / 2600 Balance -762.67 / -762.67 Lab / Micro Data 08/12/24 07:45 08/11/24 23:15 Labs: Laboratory Results - last 24 hr 08/11/24 23:15: WBC 21.6 H, RBC 4.22, Hgb 13.8, Hct 38.0, MCV 90.0, MCH 32.7 H, MCHC 36.3 H, RDW Std Deviation 41.6, RDW Coeff of [place] 12.7, Plt Count 229, MPV 11.2, Immature Gran % (Auto) 0.600, Neut % (Auto) 89.2 H, Lymph % (Auto) 5.1 L, [place] % (Auto) 4.9, Eos % (Auto) 0.1, Baso % (Auto) 0.1, Absolute Neuts (auto) 19.3 H, Absolute Lymphs (auto) 1.10, Nucleated RBC % 0, PT 11.8, INR 0.9, APTT 29.6, Fibrinogen 448 H, Sodium 134, Potassium 3.7, Chloride 104, Carbon Dioxide 13.9 L, Anion Gap 16 H, BUN 13, Creatinine 0.63 L, Estim Creat Clear Calc 131.80, Est GFR (MDRD) Non-Af 120, BUN/Creatinine Ratio 20.6 H, Glucose 115 H, Calcium 8.9, Total Bilirubin 0.39, AST 26, ALT 20, Alkaline Phosphatase 299 H, Total Protein 8.2, Albumin 3.5, Globulin 4.7 H, Albumin/Globulin Ratio 0.7 L, Syphilis Total Ab Nonreactive, Blood Type O POSITIVE, Antibody Screen NEGATIVE 08/12/24 05:00: Urine Opiates Screen PRESUMPTIVE POSITIVE, U Buprenorphine Qual NEGATIVE, Ur Oxycodone Screen NEGATIVE, Urine Methadone Screen NEGATIVE, Urine Fentanyl Screen NEGATIVE, Ur Barbiturates Screen NEGATIVE, Ur Phencyclidine ScrnNEGATIVE, Ur Amphetamines Screen NEGATIVE, U Benzodiazepines Scrn NEGATIVE, Urine Cocaine Screen NEGATIVE, U Cannabinoids Screen PRESUMPTIVE POSITIVE 08/12/24 07:45: WBC 20.2 H, RBC 3.46 L, Hgb 11.2 L, Hct 31.8 L, MCV 91.9, MCH 32.4 H, MCHC 35.2, RDW Std Deviation 41.8, RDW Coeff of [place] 12.8, Plt Count 175,MPV 10.8 ROS Constitutional Constitutional: Reports systems reviewed and no addt'l complaints, except as documented Cardiovascular Cardiovascular: Reports systems reviewed and no addt'l complaints, except as documented Respiratory/Chest Respiratory/Chest: Reports systems reviewed and no addt'l complaints, except as documented Gastrointestinal Gastrointestinal: Reports systems reviewed and no addt'l complaints, except as documented Physical Exam Const alert, oriented x3 and no apparent distress HEENT Head and Scalp: atraumatic Resp normal respiratory effort GI soft to palpation and non-tender Inspection: incision intact, healing well and drainage (none) Bimanual Exam - Vag & Uterus: uterus non-tender Uterus Palpation: uterus fundus firm (below Umbilicus) Assessment & Plan (1) delivery delivered: COMMENT: RLTCS uterine rupture girl janusz 38 SM (2) Uterine rupture: PLAN: Plan s/p LTCS PPD # 1 1. routine post care 2. breast feeding- support given 3. rh positive 4. rubella immune 08/13/24 1143 <Electronically signed by Meena Luciano MD> Cosigner Signature (if applicable): CC: ~ Signed [facility] Work Phone: 1(548) 794-884606-02-2025 Progress note Author Meena Luciano [facility] Note Date/Time August 12, 2024 9:19a m [facility] Medical Records Department [address] [place] [address] Progress Note - OBGYN 08/12/24 0919 MR#: [id number] Acct: [id number] Name: DAVID POST Rep #:[id number] : 1990 33 From: Meena jenkins MD PCP: Care Physician,No Primary Status :ADM IN Location: [address] Subjective Subjective Patient doing well without complaints. Tolerating PO. feeding well. Denies chest pain, shortness of breath, calf pain/swelling, fevers, chills, lightheadedness. Objective Data Objective Data Vital Signs: Vital Signs Temp Pulse Resp BP Pulse Ox O2 Del Method 99 F 75 16 110/67 97 Room Air 08/12/24 07:20 08/12/24 07:20 08/12/24 07:20 08/12/24 07:20 08/12/24 07:20 08/12/24 07:20 Oxygen Delivery Method Room Air Weight: 189 lb Body Mass Index (BMI) 33.5 Intake & Output: Intake and Output for Last 24 Hours 08/10/24 08/11/24 08/12/24 23:59 23:59 23:59 Intake Total 987.33 / 987.33 Output Total 1775 / 1775 Balance -787.67 / -787.67 Lab / Micro Data 08/12/24 07:45 08/11/24 23:15 Labs: Laboratory Results - last 24 hr 08/11/24 23:15: WBC 21.6 H, RBC 4.22, Hgb 13.8, Hct 38.0, MCV 90.0, MCH 32.7 H, MCHC 36.3 H, RDW Std Deviation 41.6, RDW Coeff of [place] 12.7, Plt Count 229, MPV 11.2, Immature Gran % (Auto) 0.600, Neut % (Auto) 89.2 H, Lymph % (Auto) 5.1 L, [place] % (Auto) 4.9, Eos % (Auto) 0.1, Baso % (Auto) 0.1, Absolute Neuts (auto) 19.3 H, Absolute Lymphs (auto) 1.10, Nucleated RBC % 0, PT 11.8, INR 0.9, APTT 29.6, Fibrinogen 448 H, Sodium 134, Potassium 3.7, Chloride 104, Carbon Dioxide 13.9 L, Anion Gap 16 H, BUN 13, Creatinine 0.63 L, Estim Creat Clear Calc 131.80, Est GFR (MDRD) Non-Af 120, BUN/Creatinine Ratio 20.6 H, Glucose 115 H, Calcium 8.9, Total Bilirubin 0.39, AST 26, ALT 20, Alkaline Phosphatase 299 H, Total Protein 8.2, Albumin 3.5, Globulin 4.7 H, Albumin/Globulin Ratio 0.7 L, Syphilis Total Ab Nonreactive, Blood Type O POSITIVE, Antibody Screen NEGATIVE 08/12/24 05:00: Urine Opiates Screen PRESUMPTIVE POSITIVE, U Buprenorphine Qual NEGATIVE, Ur Oxycodone Screen NEGATIVE, Urine Methadone Screen NEGATIVE, Urine Fentanyl Screen NEGATIVE, Ur Barbiturates Screen NEGATIVE, Ur Phencyclidine ScrnNEGATIVE, Ur Amphetamines Screen NEGATIVE, U Benzodiazepines Scrn NEGATIVE, Urine Cocaine Screen NEGATIVE, U Cannabinoids Screen PRESUMPTIVE POSITIVE 08/12/24 07:45: WBC 20.2 H, RBC 3.46 L, Hgb 11.2 L, Hct 31.8 L, MCV 91.9, MCH 32.4 H, MCHC 35.2, RDW Std Deviation 41.8, RDW Coeff of [place] 12.8, Plt Count 175,MPV 10.8 ROS Constitutional Constitutional: Reports systems reviewed and no addt'l complaints, except as documented Cardiovascular Cardiovascular: Reports systems reviewed and no addt'l complaints, except as documented Respiratory/Chest Respiratory/Chest: Reports systems reviewed and no addt'l complaints, except as documented Gastrointestinal Gastrointestinal: Reports systems reviewed and no addt'l complaints, except as documented Physical Exam Const alert, oriented x3 and no apparent distress HEENT Head and Scalp: atraumatic Resp normal respiratory effort GI soft to palpation and non-tender Inspection: incision intact, healing well and drainage (none) Bimanual Exam - Vag & Uterus: uterus non-tender Uterus Palpation: uterus fundus firm (below Umbilicus) Assessment & Plan (1) delivery delivered: COMMENT: RLTCS uterine rupture girl janusz 38 SM (2) Uterine rupture: PLAN: Plan s/p LTCS PPD # 0 1. routine post care 2. breast feeding- support given 3. rh positive 4. rubella immune 08/12/24918 <Electronically signed by Meena Luciano MD> Cosigner Signature (if applicable): CC: ~ Signed [facility] Work Phone: 1(470) 751-301006-02-2025 Progress note [facility] Medical Records Department [address] [facility] [place] [address] Progress Note - OBGYN 08/12/24918 MR#: [id number] Acct: [id number] Name: DAVID POST Rep #:[id number] : 1990 33 From: Meena jenkins MD PCP: Care Physician,No Primary Status :ADM IN Location: [place] [address] Subjective Subjective Patient doing well without complaints. Tolerating PO. feeding well. Denies chest pain, shortness of breath, calf pain/swelling, fevers, chills, lightheadedness. Objective Data Objective Data Vital Signs: Vital Signs Temp Pulse Resp BP Pulse Ox O2 Del Method 99 F 75 16 110/67 97 Room Air 08/12/24 07:20 08/12/24 07:20 08/12/24 07:20 08/12/24 07:20 08/12/24 07:20 08/12/24 07:20 Oxygen Delivery Method Room Air Weight: 189 lb Body Mass Index (BMI) 33.5 Intake & Output: Intake and Output for Last 24 Hours 08/10/24 08/11/24 08/12/24 23:59 23:59 23:59 Intake Total 987.33 / 987.33 Output Total 1775 / 1775 Balance -787.67 / -787.67 Lab / Micro Data 08/12/24 07:45 08/11/24 23:15 Labs: Laboratory Results - last 24 hr 08/11/24 23:15: WBC 21.6 H, RBC 4.22, Hgb 13.8, Hct 38.0, MCV 90.0, MCH 32.7 H, MCHC 36.3 H, RDW Std Deviation 41.6, RDW Coeff of [place] 12.7, Plt Count 229, MPV 11.2, Immature Gran % (Auto) 0.600, Neut% (Auto) 89.2 H, Lymph % (Auto) 5.1 L, [place] % (Auto) 4.9, Eos % (Auto) 0.1, Baso % (Auto) 0.1, Absolute Neuts (auto) 19.3 H, Absolute Lymphs (auto) 1.10, Nucleated RBC % 0, PT 11.8, INR 0.9, APTT 29.6, Fibrinogen 448 H, Sodium 134, Potassium 3.7, Chloride 104, Carbon Dioxide 13.9 L, Anion Gap 16 H,BUN 13, Creatinine 0.63 L, Estim Creat Clear Calc 131.80, Est GFR (MDRD) Non-Af 120, BUN/CreatinineRatio 20.6 H, Glucose 115 H, Calcium 8.9, Total Bilirubin 0.39, AST 26, ALT 20, Alkaline Phosphatase 299 H, Total Protein 8.2, Albumin 3.5, Globulin 4.7 H, Albumin/Globulin Ratio 0.7 L, Syphilis Total Ab Nonreactive, Blood Type O POSITIVE, Antibody Screen NEGATIVE 08/12/24 05:00: Urine Opiates Screen PRESUMPTIVE POSITIVE, U Buprenorphine Qual NEGATIVE, Ur Oxycodone Screen NEGATIVE, Urine Methadone Screen NEGATIVE, Urine Fentanyl Screen NEGATIVE, Ur Barbiturates Screen NEGATIVE, Ur Phencyclidine ScrnNEGATIVE, Ur Amphetamines Screen NEGATIVE, U BenzodiazepinesScrn NEGATIVE, Urine Cocaine Screen NEGATIVE, U Cannabinoids Screen PRESUMPTIVE POSITIVE 08/12/24 07:45: WBC 20.2 H, RBC 3.46 L, Hgb 11.2 L, Hct 31.8 L, MCV 91.9, MCH 32.4 H, MCHC 35.2, RDW Std Deviation 41.8, RDW Coeff of [place] 12.8, Plt Count 175,MPV 10.8 ROS Constitutional Constitutional: Reports systems reviewed and no addt'l complaints, except as documented Cardiovascular Cardiovascular: Reports systems reviewed and no addt'l complaints, except as documented Respiratory/Chest Respiratory/Chest: Reports systems reviewed and no addt'l complaints, except as documented Gastrointestinal Gastrointestinal: Reports systems reviewed and no addt'l complaints, except as documented Physical Exam Const alert, oriented x3 and no apparent distress HEENT Head and Scalp: atraumatic Resp normal respiratory effort GI soft to palpation and non-tender Inspection: incision intact, healing well and drainage (none) Bimanual Exam - Vag & Uterus: uterus non-tender Uterus Palpation: uterus fundus firm (below Umbilicus) Assessment & Plan (1) delivery delivered: COMMENT: RLTCS uterine rupture girl janusz 38 SM (2) Uterine rupture: PLAN: Plan s/p LTCS PPD # 0 1. routine post care 2. breast feeding- support given 3. rh positive 4. rubella immune 08/12/24918 Cosigner Signature (if applicable): CC: ~ Signed [facility]06-02-2025 Discharge summary Author Meena Luciano [facility] Note Date/Time August 12, 2024 1:20a m [facility] Medical Records Department [address] [place] [address] Instructions for Home/Discharge Instructions 08/12/24 0118 MR#: [id number] Acct: [id number] Name: SINCEREDAVID LÓPEZ Rep #:[id number] : 1990 33 From: Meena jenkins MD PCP: Care Physician,No Primary Status :ADM IN Discharge Instructions Diet Discharge Diet: No restrictions DC O2, CPAP, BIPAP needs Home O2 Discharge instructions: No Dressing / Incision Discharge Activity: May Not Drive (for 2 weeks or while taking narcotic pain medications.), May Shower and May Take a Tub Bath (in 7 days) May shower in (days): 0 May resume sexual activity in: 4-6 weeks Weight Bearing Status: Full weight bearing Lifting Restrictions: 20 pounds Dressing / Incision Call your doctor if your incision/area has: Continuous Slow Oozing, Sudden Increased Bleeding, Increased Pain/ Swelling, Increased Redness and Foul Smelling Discharge Call your doctor if you observe: Fever of 101 or Higher and Using more than 1 pad per hour (for 2 hours) Suture Line Care: Avoid Pulling/Pushing and Avoid Pinching/Bending Cleanse incision/area with: Soap & Water and Keep Dressing Clean & Dry Follow Up Care Please Follow Up With: Meena Luciano MD When: Call [phone] to make an appointment for an incision check in 1-2 weeks. Test Results: Test results from this visit will be discussed in further detail at your follow- up appointment, if applicable. Discharge Plan Admission Admit Date/Time: 08/11/24 23:33 Attending Provider: Meena Luciano Primary Care Provider: Care Physician,No Primary Discharge Orders/Prescriptions Prescriptions: New oxycodone-acetaminophen [Percocet] 5-325 mg tablet 1 tab PO Q4H PRN (Reason: pain) 7 Days Qty: 20 0RF naproxen 500 mg tablet 500 mg PO BID PRN PRN (Reason: Pain) Qty: 30 1RF No Action PNV-DHA 27 mg iron-1 mg -300 mg capsule 1 cap PO DAILY Referrals / Follow Up: Care Physician,No Primary [Primary Care Provider] - Disposition Disposition (needs filled in before D/C Order can be placed): Home, Self Care 08/12/24 0120<Electronically signed by Meena Luciano MD>Meena Luciano MD CC: No Primary Care Physician ~ Signed [facility] Work Phone: 1(477) [phone] History and physical note Author Meena Luciano [facility] Note Date/Time August 12, 2024 1:09a m [facility] Medical Records Department [address] [place] [address] H&P Exam - PLASTERER SPOT 08/12/24 0101 MR#: [id number] Acct: [id number] Name: DAVID POST Rep #:[id number] : 1990 33 From: Meena jenkins MD PCP: Care Physician,No Primary Status :ADM IN Location: [id number] HPI - General General Date of Admission: 08/11/24 HPI Narrative DAVID POST, is a 33 F who presents for early rule out labor for a TOLAC, was initially 3-4 cm, and during her ruling out of labor she had a bradycardicepisode and she was rechecked and found to be 5 cm with a loss of station,so the decision was made to proceed with a repeat for a suspected uterine rupture, patient declined a trial of labor. Maternal Data Information MANUEL Calculator Estimated Delivery Date Method Current WG Current Estimate 08/21/24 Ultrasound #1 38w 5d Other Estimates 07/04/24 LMP (Uncertain) 45w 4d 08/18/24 Ultrasound #2 39w 1d PFSH PFSH Medical History Uterine anomaly Trauma Anxiety History of asthma History of back pain history of knee pain History of anemia Home Medications ?Medication ?Instructions ?Recorded ?Last Taken ?Type multivitamin no.47-iron fum 27 1 cap PO DAILY pregnanc y 09/02/22 04/27/23 History mg-folate no.1 1 mg-dha 300 mg capsule (PNV-DHA) Allergy/AdvReac Type Severity Reaction Status Date / Time bee venom protein (honey Allergy Hives Verified 08/11/24 20:29 bee) (bee sting) Social History adopted: Yes household members: significant other, children and other details: JOSELYN Luciano (has two kids Ryan Khan lives with his mom) [facility] housing: house number of children: 2 current occupational status: other current occupation: [employer] current occupational exposures/hazards: No pets and animals: Yes (not managing litter box) pets and animals: cat(s) leisure activities: exercise history of recent travel: No sexually active: Yes Smoking Status: Current every day smoker tobacco type: cigarettes Tobacco: How many years used: 8 quit status: quit date established alcohol intake: never substance use type: marijuana and other details: last Oct 2022, counseling provided. Pt agreeable to drug testing well-balanced diet: daily or most days eating out: rarely or never during the past year weight has: decreased > 10 lbs what type of physical activity do you participate in: walking frequency: 1-2 times per week yesenia/taoist: None seatbelt use: always do you feel safe at home: Yes additional social history: JOSELYN- [employer] History 2 Elective abortions Hx Para 1 Spontaneous abortions Hx # Term Pregnancies 1 Ectopic pregnancies Hx # Pregnancies Multiple births # of living children 1 Past Pregnancies Del. Date Name GA/Weeks Outcome Route Bth Weight Gen Labor Lgth Anesthesia Del Locatn Provider FOB 04/29/23 Jason 39 live - full term 6lbs 12oz Male [facility] Mustapha Luciano Delivery Date: 04/29/23 Last Updated by: Dee Dee Dejesus [facility] Visit Details Expected Delivery Route/Plan R C/S with JV Plans Covid status: [] Flu vaccine: [] Tdap vaccine: discussed Rhogam: [] LARC form signed: [] Problem list reviewed and updated with the most current plan of care details and appropriate orders placed. Relevant counseling for the gestational age provided. Continue routine care and follow up unless otherwise noted in visit notes/problem list details OB Flowsheet Initial Weight: 181 lb Date -?-?-?-?-?-?-?-?-?-?-?-?- EGA Weight BP Urine Prot -?-?-?-?-?-?-?-?-?-?-?-?- Glucose FHR FuHt Pres Dilation -?-?-?-?-?-?-?-?-?-?-?-?- Effaced St Visit Note 12/21/23 -?-?-?-?-?-?-?-?-?-?-?-?- 5w 1d 181 lb 8 oz (+8 oz) 110/70 -?-?-?-?-?-?-?-?-?-?-?-?- -?-?-?-?-?-?-?-?-?-?-?-?- KW- CRL not cons with dates. SM assisted with scan. measuring 5.1 weeks. plan for hcgs and repeat US next week. 02/23/24 -?-?-?-?-?-?-?-?-?-?-?-?- 14w 2d 173 lb (-8 lb) 119/72 Negative -?-?-?-?-?-?-?-?-?-?-?-?- Negative 147 -?-?-?-?-?-?-?-?-?-?-?-?- JV- pt was absen t for a weeks due to insurance loss. She states that they have insurance now . new ob lab and NIPT ordered. unsure about rpt section vs trial of labor. 03/22/24 -?-?-?-?-?-?-?-?-?-?-?-?- 18w 2d 175 lb (-6 lb) 108/67 Negative -?-?-?-?-?-?-?-?-?-?-?-?- Negative 145 -?-?-?-?-?-?-?-?-?-?-?-?- SM- no vb lof go od fm nro egular ctx SM- no vb lof good fm nro eg ular ctx discussed plan RLTCS at 40-41 weeks plan TO LAC prior 04/15/24 -?-?-?-?-?-?-?-?-?-?-?-?- 21w 5d 176 lb 6 oz (-4 lb 10 oz) 98/64 Negative -?-?-?-?-?-?-?-?-?-?-?-?- Negative 155 -?-?-?-?-?-?-?-?-?-?-?-?- MH-No VB, LOF. G ood FM. Denies concerns 05/13/24 -?-?-?-?-?-?-?-?-?-?-?-?- 25w 5d 181 lb 2 oz (+2 oz) 110/68 Negative -?-?-?-?-?-?-?-?-?-?-?-?- Negative 140 26 -?-?-?-?-?-?-?-?-?-?-?-?- KW- no vb/lof/ct x. good fm. 28 week labs discussed. chiropractor for back pain. 05/27/24 -?-?-?-?-?-?-?-?-?-?-?-?- 27w 5d 181 lb 4 oz (+4 oz) 108/66 Negative -?-?-?-?-?-?-?-?-?-?-?-?- Negative 138 28 -?-?-?-?-?-?-?-?-?-?-?-?- KW- no vb/crampi ng. good fm. labs today. LARC today. 06/14/24 -?-?-?-?-?-?-?-?-?-?-?-?- 30w 2d 182 lb (+16 oz) 129/78 Negative -?-?-?-?-?-?-?-?-?-?-?-?- Negative 140 30 -?-?-?-?-?-?-?-?-?-?-?-?- SM- no vb lof go od fm no reulgar ctx 06/24/24 -?-?-?-?-?-?-?-?-?-?-?-?- 31w 5d 183 lb 6 oz (+2 lb 6 oz) 120/73 Negative -?-?-?-?-?-?-?-?-?-?-?-?- Negative 135 30 -?-?-?-?-?-?-?-?-?-?-?-?- KW- no vb/lof/ct x. good fm no concerns today 07/12/24 -?-?-?-?-?-?-?-?-?-?-?-?- 34w 2d 188 lb 2 oz (+7 lb 2 oz) 116/73 Negative -?-?-?-?-?-?-?-?-?-?-?-?- Negative 130 34 Cephalic -?-?-?-?-?-?-?-?-?-?-?-?- KW- no vb/lof/ct x. good fm. stretching for low back pain. 07/22/24 -?-?-?-?-?-?-?-?-?-?-?-?- 35w 5d 184 lb 4 oz (+3 lb 4 oz) 118/73 Negative -?-?-?-?-?-?-?-?-?-?-?-?- Negative 135 35 Cephalic -?-?-?-?-?-?-?-?-?-?-?-?- JV- cephalic on scan today. (unofficial in office scan) discussed today. has backup plan for rpt section on august 21. no lof, vaginal bleeding, or dec fm. 08/02/24 -?-?-?-?-?-?-?-?-?-?-?-?- 37w 2d 192 lb 4 oz (+11 lb 4 oz) 129/81 Negative -?-?-?-?-?-?-?-?-?-?-?-?- Negative 125 36 0 -?-?-?-?-?-?-?-?-?-?-?-?- -3 KW- no v b/lof. good fm. having some contractions at night-feels like baby is dropping. 08/08/24 -?-?-?-?-?-?-?-?-?-?-?-?- 38w 1d 194 lb 4 oz (+13 lb 4 oz) 131/78 Negative -?-?-?-?-?-?-?-?-?-?-?-?- Negative 130 38 Cephalic 2 .5 -?-?-?-?-?-?-?-?-?-?-?-?- 60 -2 KW- no vb/ lof. irregular ctx. good fm. labor precautions. would like membrane sweep next week. NST FHR Rate Baby A Baseline: 120 Variability:: Moderate Accelerations:: 15 x 15 Decelerations:: Prolonged (Bradycardia into the 70s) NST Reactive:: Yes FHR Category:: Category I and Category II Uterine Activity:: q3-5 ROS Constitutional Constitutional: Reports systems reviewed and no addt'l complaints, except as documented ENT HEENT: Reports systems reviewed and no addt'l complaints, except as documented Cardiovascular Cardiovascular: Reports systems reviewed and no addt'l complaints, except as documented Respiratory/Chest Respiratory/Chest: Reports systems reviewed and no addt'l complaints, except as documented Gastrointestinal Gastrointestinal: Reports systems reviewed and no addt'l complaints, except as documented and nausea; Denies abdominal pain Genitourinary Genitourinary: Reports systems reviewed and no addt'l complaints, except as documented, contractions Details: present and frequency (regular ) and movement Details: present Musculoskeletal Musculoskeletal: Reports systems reviewed and no addt'l complaints, except as documented Integumentary Integumentary: Reports as per HPI Neurologic Neurologic: Reports systems reviewed and no addt'l complaints, except as documented Endocrine Endocrinology: Reports systems reviewed and no addt'l complaints, except as documented Vital Signs Vital Signs Vital Signs: 08/11/24 20:38 08/11/24 20:38 08/11/24 20:38 Temperature Temperature Source Pulse Rate 64 Respiratory Rate Blood Pressure 134/82 H BP Systolic 134 BP Diastolic 82 Pulse Ox 100 08/11/24 20:38 08/11/24 20:38 08/11/24 20:38 Temperature 97.9 F Temperature Source Temporal Pulse Rate Respiratory Rate 16 Blood Pressure BP Systolic BP Diastolic Pulse Ox Weight Weight: 189 lb Body Mass Index (BMI) 33.5 Physical Exam Const alert, oriented x3 and healthy appearing Constitutional Narrative: uncomfortable with contractions HEENT normocephalic and moist oral mucous membranes Head and Scalp: atraumatic Neck full ROM, no lymphadenopathy, supple and thyroid normal General: trachea midline Thyroid: thyroid normal Lymph Lymphatic: no lymphadenopathy noted Chest inspection of chest normal Resp normal respiratory effort Cardio regular rate GI soft to palpation and non-tender GI Narrative: gravid Inspection: gravid external exam normal Bimanual Exam - Vag & Uterus: uterus non-tender Manual OB Exam: estimated gestational size appropriate, presentation cephalic, dilated, effaced and station Extremity normal to inspection General Extremity: Negative for edema Skin no rashes or lesions noted Neuro deep tendon reflexes 2+ bilaterally Motor Exam: strength 5/5 throughout and clonus absent Psych mental status grossly normal Labs Labs Labs: Blood Type O POSITIVE Antibody Screen NEGATIVE Hct 38.0 % (37-47) Hgb 13.8 g/dL (12.0-15.0) Obstetrics Ultrasound Syphilis Total Ab Nonreactive (Nonreactive) Rubella IgG Antibody Reactive (Nonreactive) Hep Bs Antigen Non-Reactive (Nonreactive) Hepatitis C Antibody Non-Reactive (Nonreactive) Chlamydia DNA (ELIZABETH) Negative (Negative) N.gonorrhoeae DNA (ELIZABETH) Negative (Negative) HIV 1&2 Antibody Nonreactive (Nonreactive) Glucose 1 Hr 50 gm 96 mg/dL (70-140) Rhogam given: No Assessment & Plan (1) Positive GBS test: COMMENT: treat if in labor. (2) Obesity affecting : QUALIFIERS: Trimester: second trimester Obesity type affecting : unspecified obesity Qualified Code(s): O99.212 - Obesity complicating , second trimester COMMENT: A1C (3) Supervision of high-risk : QUALIFIERS: Trimester: second trimester Qualified Code(s): O09.92 - Supervision of high risk , unspecified, second trimester COMMENT: PRR, , MANUEL 07/04/24, girl Janusz [facility] JOSELYN Gomez (4) Borderline personality disorder: COMMENT: sees counselor (5) : QUALIFIERS: Weeks of gestation: 38 weeks Qualified Code(s): Z3A.38 - 38 weeks gestation of COMMENT: NIPT with gender, declines carrier. nl anatomy (6) Uterine anomaly: COMMENT: tilted (7) ASCUS with positive high 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al: COMMENT: [place] done repeat pap 08/04 (8) Marijuana smoker: COMMENT: occasional for anxiety, counseling provided. last Oct 2023 (9) Depression: QUALIFIERS: Depression Type: unspecified Qualified Code(s): F32.A - Depression, unspecified COMMENT: erna okee[place] counselor (10) Uterine rupture: (11) delivery delivered: COMMENT: RLTCS uterine rupture girl janusz 38 SM PLAN: Plan proceeded with stat RLTCS 08/12/24108 <Electronically signed by Meena Luciano MD> Cosigner Signature (if applicable): CC: Dr. Meena Luciano MD; No Primary Care Physician~ Signed [facility] Work Phone: 1(983) 916-969206-02-2025 Procedure note [facility] Medical Records Department [address] [place] [address] Operative Report 08/12/24108 MR#: [id number] Acct: [id number] Name: DAVID POST Rep #:[id number] : 1990 33 From: Meena jenkins MD PCP: Care Physician,No Primary Status :ADM IN [facility] Assessment & Plan (1) delivery delivered: COMMENT: RLTCS uterine rupture girl janusz 38 SM (2) Uterine rupture: (3) Positive GBS test: COMMENT: treat if in labor. (4) Obesity affecting : QUALIFIERS: Trimester: second trimester Obesity type affecting : unspecified obesity Qualified Code(s): O99.212 - Obesity complicating , second trimester COMMENT: A1C (5) Supervision of high-risk : QUALIFIERS: Trimester: second trimester Qualified Code(s): O09.92- Supervision of high risk , unspecified, second trimester COMMENT: PRR, , MANUEL 07/04/24, girl Janusz Gomez, JOSELYN Luciano (6) : QUALIFIERS: Weeks of gestation: 38 weeks Qualified Code(s): Z3A.38 - 38 weeks gestation of COMMENT: NIPT with gender, declines carrier. nl anatomy (7) Borderline personality disorder: COMMENT: sees counselor (8) Uterine anomaly: COMMENT: tilted (9) ASCUS with positive high 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al: COMMENT: [place] done repeat pap 08/04 (10) Marijuana smoker: COMMENT: occasional for anxiety, counseling provided. last Oct 2023 (11) Depression: QUALIFIERS: Depression Type: unspecified Qualified Code(s): F32.A- Depression, unspecified COMMENT: erna [place]kee[place] counselor Maternal Data Information MANUEL Calculator Estimated Delivery Date Method Current WG Current Estimate 08/21/24 Ultrasound #1 38w 5d Other Estimates 07/04/24 LMP (Uncertain) 45w 4d 08/18/24 Ultrasound #2 39w 1d Operative Report (OB) Details Procedure Type: low transverse Date of Procedure: 08/12/24 Procedure Start Time: 00:00 Procedure Stop Time: 00:47 Pre-Operative Diagnosis: Other Other Pre-Operative diagnosis: see a/p comments Post-Operative Diagnosis: Same as Pre-operative diagnosis Classification: Stat Type of Anesthesia: General Antibiotic Given: Ancef 2 grams IV x1 Drain: De Leon to straight drain Estimated Blood Loss: 600 Fluids Replaced: crystalloid Findings Description of surgery: De Leon catheter was placed. The patient was placed in the dorsal supine position with leftward tilt.Patient was prepped and draped in the normal sterile fashion. General anesthesia was going to be administered however the IVaccess was lost and had to be reestablished. After patient was placed undergeneral anesthesia after IV was secured, Pfannenstiel skin incision was made with the scalpel and carried through to the underlying layer of fascia with the scalpel. Fascia was nicked in the midline and the incision extended laterally. The rectus bellies were dissected off superiorly and inferiorlywith out complication both sharply and bluntly. The peritoneum was entered digitally. The incision was stretched and the lower uterine segment was inspected and notedto be very thin, upon lightly touching it spontaneously burst open confirming uterine rupture the 's head was delivered atraumatically followed by the anterior and posterior shoulders without complication the rest of the infantdelivered. The cord was clamped and cut and the infant was handed off to awaitingnurse. The placenta was delivered spontaneously immediately following and was noted to be intact and have a three-vessel cord. The uterus was exteriorized cleared of all clots and debris, and the incision was closed larry single layer closure using #1 Monocryl. The ovaries and fallopian tubes were noted to be within normal limits. The uterus was returned to the maternal abdomen and gutters were cleared of all clots and debris. The peritoneum was closed with 3-0Monocryl in a running fashion. Ccrmzz-su-noyux suture was used on the rectus muscle and 2 areas to obtain hemostasis and Hemoblast also used. Gloves were changed prior to fascial closure. Fascia was closed with 0 PDS in a running fashion. Subcutaneous tissue was copiously irrigated and the skin was closed with 3-0 Monocryl in a subcuticular fashion. Mepilex dressing was applied without complication. Patient was taken to recovery in stable condition. It was discussed with the patient that based on the clinical information obtained during this encounter, combined with her history, at this time I would recommendcesareans for future deliveries if further pregnancies are desired and delivery at 36 weeks. Surgical findings: nl uterus tubes, uterine rupture Amniotic Membrane Rupture Type: Artificial Amniotic Fluid Description: Clear Specimen collected: Yes Description of specimen(s) removed: Placenta Cord Vessel Description: 3 Vessels Delayed Cord Clamping: Yes Steam Turbine Operator pan devulcanizer helper: Yes Nutritionist: Krystin Longo Tasks completed by assistant operations manager: Opening & closing, Retracting and Other (Assisting with delivery of the ) Additional administrative assistant?: Yes Additional Unarmed Security Guard #2: Aleida Payne Tasks completed by administrative assistant #2: Closing and Retracting Additional administrative assistant?: No Complications Complications: No Admit VTE Documentation VTE Present on Admission: No VTE Mechan Device Prophylaxis: SCD's Procedures Urinary/Genital 52xxx-59xxx: 22448 delivery+ Care([facility]) 08/12/24 0118 Cosigner Signature (if applicable): CC: Dr. Meena Luciano MD; No Primary Care Physician~ Signed ADDENDUM by Dr. Meena Luciano MD on 08/12/24 at 0121 Addendum 08/12/24 0121 Cosigner Signature (if applicable): cc: Dr. Meena Luciano MD; No Primary Care Physician ~* Signed [facility]06-02-2025 Discharge summary [facility] Medical Records Department [address] [place] [address] Instructions for Home/Discharge Instructions 08/12/24 0118 MR#: [id number] Acct: [id number] Name: DAVID POST Rep #:[id number] : 1990 33 From: Meena jenkins MD PCP: Care Physician,No Primary Status :ADM IN Discharge Instructions Diet Discharge Diet: No restrictions DC O2, CPAP, BIPAP needs Home O2 Discharge instructions: No Dressing / Incision Discharge Activity: May Not Drive (for 2 weeks or while taking narcotic pain medications.), May Shower and May Take a Tub Bath (in 7 days) May shower in (days): 0 May resume sexual activity in: 4-6 weeks Weight Bearing Status: Full weight bearing Lifting Restrictions: 20 pounds Dressing / Incision Call your doctor if your incision/area has: Continuous Slow Oozing, Sudden Increased Bleeding, Increased Pain/ Swelling, Increased Redness and Foul Smelling Discharge Call your doctor if you observe: Fever of 101 or Higher and Using more than 1 pad per hour (for 2 hours) Suture Line Care: Avoid Pulling/Pushing and Avoid Pinching/Bending Cleanse incision/area with: Soap & Water and Keep Dressing Clean & Dry Follow Up Care Please Follow Up With: Meena Luciano MD When: Call [phone] to make an appointment for an incision check in 1-2 weeks. Test Results: Test results from this visit will be discussed in further detail at your follow- up appointment, if applicable. Discharge Plan Admission Admit Date/Time: 08/11/24 23:33 Attending Provider: Meena Luciano Primary Care Provider: Care Physician,No Primary Discharge Orders/Prescriptions Prescriptions: New oxycodone-acetaminophen [Percocet] 5-325 mg tablet 1 tab PO Q4H PRN (Reason: pain) 7 Days Qty: 20 0RF naproxen 500 mg tablet 500 mg PO BID PRN PRN (Reason: Pain) Qty: 30 1RF No Action PNV-DHA 27 mg iron-1 mg -300 mg capsule 1 cap PO DAILY Referrals / Follow Up: Care Physician,No Primary [Primary Care Provider] - Disposition Disposition (needs filled in before D/C Order can be placed): Home, Self Care 08/12/24 0120Meena Luciano MD CC: No Primary Care Physician ~ Signed [facility]06-02-2025 History and physical note [facility] Medical Records Department [address] [place] [address] H&P Exam - PLASTERER SPOT 08/12/24 0101 MR#: [id number] Acct: [id number] Name: DAVID POST Rep #:[id number] : 1990 33 From: Meena jenkins MD PCP: Care Physician,No Primary Status :ADM IN Location: [address] [facility] - General General Date of Admission: 08/11/24 HPI Narrative DAVID POST, is a 33 F who presents for early rule out labor for a TOLAC, was initially 3-4 cm, andduring her ruling out of labor she had a bradycardicepisode and she was rechecked and found to be 5 cm with a loss of station,so the decision was made to proceed with a repeat for a suspected uterine rupture, patient declined a trial of labor. Maternal Data Information MANUEL Calculator Estimated Delivery Date Method Current WG Current Estimate 08/21/24 Ultrasound #1 38w 5d Other Estimates 07/04/24 LMP (Uncertain) 45w 4d 08/18/24 Ultrasound #2 39w 1d PFSH PFSH Medical History Uterine anomaly Trauma Anxiety History of asthma History of back pain history of knee pain History of anemia Home Medications ?Medication ?Instructions ?Recorded ?Last Taken ?Type multivitamin no.47-iron fum 27 1 cap PO DAILY pregnanc y 09/02/22 04/27/23 History mg-folate no.1 1 mg-dha 300 mg capsule (PNV-DHA) Allergy/AdvReac Type Severity Reaction Status Date / Time bee venom protein (honey Allergy Hives Verified 08/11/24 20:29 bee) (bee sting) Social History adopted: Yes household members: significant other, children and other details: JOSELYN Luciano (has two kids Ryan Khan lives with his mom) [facility] housing: house number of children: 2 current occupational status: other current occupation: [employer] current occupational exposures/hazards: No pets and animals: Yes (not managing litter box) pets and animals: cat(s) leisure activities: exercise history of recent travel: No sexually active: Yes Smoking Status: Current every day smoker tobacco type: cigarettes Tobacco: How many years used: 8 quit status: quit date established alcohol intake: never substance use type: marijuana and other details: last Oct 2022, counseling provided. Pt agreeable to drug testing well-balanced diet: daily or most days eating out: rarely or never during the past year weight has: decreased > 10 lbs what type of physical activity do you participate in: walking frequency: 1-2 times per week yesenia/taoist: None seatbelt use: always do you feel safe at home: Yes additional social history: [facility] History 2 Elective abortions Hx Para 1 Spontaneous abortions Hx # Term Pregnancies 1 Ectopic pregnancies Hx # Pregnancies Multiple births # of living children 1 Past Pregnancies Del. Date Name GA/Weeks Outcome Route Bth Weight Gen Labor Lgth Anesthesia Del Locatn Provider FOB 04/29/23 Jason 39 live - full term 6lbs 12oz Male [facility] Mustapha Luciano Delivery Date: 04/29/23 Last Updated by: Dee Dee Dejesus [facility] Visit Details Expected Delivery Route/Plan R C/S with JV Plans Covid status: [] Flu vaccine: [] Tdap vaccine: discussed Rhogam: [] LARC form signed: [] Problem list reviewed and updated with the most current plan of care details and appropriate ordersplaced. Relevant counseling for the gestational age provided. Continue routine care and follow up unless otherwise noted in visit notes/problem list details OB Flowsheet Initial Weight: 181 lb Date -?-?-?-?-?-?-?-?-?-?-?-?- EGA Weight BP Urine Prot -?-?-?-?-?-?-?-?-?-?-?-?- Glucose FHR FuHt Pres Dilation -?-?-?-?-?-?-?-?-?-?-?-?- Effaced St Visit Note 12/21/23 -?-?-?-?-?-?-?-?-?-?-?-?- 5w 1d 181 lb 8 oz (+8 oz) 110/70 -?-?-?-?-?-?-?-?-?-?-?-?- -?-?-?-?-?-?-?-?-?-?-?-?- KW- CRL not cons with dates. SM assisted with scan. measuring 5.1 weeks. plan for hcgs and repeat US next week. 02/23/24 -?-?-?-?-?-?-?-?-?-?-?-?- 14w 2d 173 lb (-8 lb) 119/72 Negative -?-?-?-?-?-?-?-?-?-?-?-?- Negative 147 -?-?-?-?-?-?-?-?-?-?-?-?- MAGDI- pt was absen t for a weeks due to insurance loss. She states that they have insurance now . new ob lab and NIPT ordered. unsure about rpt section vs trial of labor. 03/22/24 -?-?-?-?-?-?-?-?-?-?-?-?- 18w 2d 175 lb (-6 lb) 108/67 Negative -?-?-?-?-?-?-?-?-?-?-?-?- Negative 145 -?-?-?-?-?-?-?-?-?-?-?-?- SM- no vb lof go od fm nro egular ctx SM- no vb lof good fm nro eg ular ctx discussed plan RLTCS at 40-41 weeks plan TO LAC prior 04/15/24 -?-?-?-?-?-?-?-?-?-?-?-?- 21w 5d 176 lb 6 oz (-4 lb 10 oz) 98/64 Negative -?-?-?-?-?-?-?-?-?-?-?-?- Negative 155 -?-?-?-?-?-?-?-?-?-?-?-?- MH-No VB, LOF. G ood FM. Denies concerns 05/13/24 -?-?-?-?-?-?-?-?-?-?-?-?- 25w 5d 181 lb 2 oz (+2 oz) 110/68 Negative -?-?-?-?-?-?-?-?-?-?-?-?- Negative 140 26 -?-?-?-?-?-?-?-?-?-?-?-?- KW- no vb/lof/ct x. good fm. 28 week labs discussed. chiropractor for back pain. 05/27/24 -?-?-?-?-?-?-?-?-?-?-?-?- 27w 5d 181 lb 4 oz (+4 oz) 108/66 Negative -?-?-?-?-?-?-?-?-?-?-?-?- Negative 138 28 -?-?-?-?-?-?-?-?-?-?-?-?- KW- no vb/crampi ng. good fm. labs today. [facility] today. 06/14/24 -?-?-?-?-?-?-?-?-?-?-?-?- 30w 2d 182 lb (+16 oz) 129/78 Negative -?-?-?-?-?-?-?-?-?-?-?-?- Negative 140 30 -?-?-?-?-?-?-?-?-?-?-?-?- SM- no vb lof go od fm no reulgar ctx 06/24/24 -?-?-?-?-?-?-?-?-?-?-?-?- 31w 5d 183 lb 6 oz (+2 lb 6 oz) 120/73 Negative -?-?-?-?-?-?-?-?-?-?-?-?- Negative 135 30 -?-?-?-?-?-?-?-?-?-?-?-?- KW- no vb/lof/ct x. good fm no concerns today 07/12/24 -?-?-?-?-?-?-?-?-?-?-?-?- 34w 2d 188 lb 2 oz (+7 lb 2 oz) 116/73 Negative -?-?-?-?-?-?-?-?-?-?-?-?- Negative 130 34 Cephalic -?-?-?-?-?-?-?-?-?-?-?-?- KW- no vb/lof/ct x. good fm. stretching for low back pain. 07/22/24 -?-?-?-?-?-?-?-?-?-?-?-?- 35w 5d 184 lb 4 oz (+3 lb 4 oz) 118/73 Negative -?-?-?-?-?-?-?-?-?-?-?-?- Negative 135 35 Cephalic -?-?-?-?-?-?-?-?-?-?-?-?- JV- cephalic on scan today. (unofficial in office scan) discussed today. has backup plan for rpt section on august 21. no lof, vaginal bleeding, or dec fm. 08/02/24 -?-?-?-?-?-?-?-?-?-?-?-?- 37w 2d 192 lb 4 oz (+11 lb 4 oz) 129/81 Negative -?-?-?-?-?-?-?-?-?-?-?-?- Negative 125 36 0 -?-?-?-?-?-?-?-?-?-?-?-?- -3 KW- no v b/lof. good fm. having some contractions at night-feels like baby is dropping. 08/08/24 -?-?-?-?-?-?-?-?-?-?-?-?- 38w 1d 194 lb 4 oz (+13 lb 4 oz) 131/78 Negative -?-?-?-?-?-?-?-?-?-?-?-?- Negative 130 38 Cephalic 2 .5 -?-?-?-?-?-?-?-?-?-?-?-?- 60 -2 KW- no vb/ lof. irregular ctx. good fm. labor precautions. would like membrane sweep next week. NST FHR Rate Baby A Baseline: 120 Variability:: Moderate Accelerations:: 15 x 15 Decelerations:: Prolonged (Bradycardia into the 70s) NST Reactive:: Yes FHR Category:: Category I and Category II Uterine Activity:: q3-5 ROS Constitutional Constitutional: Reports systems reviewed and no addt'l complaints, except as documented ENT HEENT: Reports systems reviewed and no addt'l complaints, except as documented Cardiovascular Cardiovascular: Reports systems reviewed and no addt'l complaints, except as documented Respiratory/Chest Respiratory/Chest: Reports systems reviewed and no addt'l complaints, except as documented Gastrointestinal Gastrointestinal: Reports systems reviewed and no addt'l complaints, except as documented and nausea; Denies abdominal pain Genitourinary Genitourinary: Reports systems reviewed and no addt'l complaints, except as documented, contractions Details: present and frequency (regular ) and movement Details: present Musculoskeletal Musculoskeletal: Reports systems reviewed and no addt'l complaints, except as documented Integumentary Integumentary: Reports as per HPI Neurologic Neurologic: Reports systems reviewed and no addt'l complaints, except as documented Endocrine Endocrinology: Reports systems reviewed and no addt'l complaints, except as documented Vital Signs Vital Signs Vital Signs: 08/11/24 20:38 08/11/24 20:38 08/11/24 20:38 Temperature Temperature Source Pulse Rate 64 Respiratory Rate Blood Pressure 134/82 H BP Systolic 134 BP Diastolic 82 Pulse Ox 100 08/11/24 20:38 08/11/24 20:38 08/11/24 20:38 Temperature 97.9 F Temperature Source Temporal Pulse Rate Respiratory Rate 16 Blood Pressure BP Systolic BP Diastolic Pulse Ox Weight Weight: 189 lb Body Mass Index (BMI) 33.5 Physical Exam Const alert, oriented x3 and healthy appearing Constitutional Narrative: uncomfortable with contractions HEENT normocephalic and moist oral mucous membranes Head and Scalp: atraumatic Neck full ROM, no lymphadenopathy, supple and thyroid normal General: trachea midline Thyroid: thyroid normal Lymph Lymphatic: no lymphadenopathy noted Chest inspection of chest normal Resp normal respiratory effort Cardio regular rate GI soft to palpation and non-tender GI Narrative: gravid Inspection: gravid external exam normal Bimanual Exam - Vag & Uterus: uterus non-tender Manual OB Exam: estimated gestational size appropriate, presentation cephalic, dilated, effaced and station Extremity normal to inspection General Extremity: Negative for edema Skin no rashes or lesions noted Neuro deep tendon reflexes 2+ bilaterally Motor Exam: strength 5/5 throughout and clonus absent Psych mental status grossly normal Labs Labs Labs: Blood Type O POSITIVE Antibody Screen NEGATIVE Hct 38.0 % (37-47) Hgb 13.8 g/dL (12.0-15.0) Obstetrics Ultrasound Syphilis Total Ab Nonreactive (Nonreactive) Rubella IgG Antibody Reactive (Nonreactive) Hep Bs Antigen Non-Reactive (Nonreactive) Hepatitis C Antibody Non-Reactive (Nonreactive) Chlamydia DNA (ELIZABETH) Negative (Negative) N.gonorrhoeae DNA (ELIZABETH) Negative (Negative) HIV 1&2 Antibody Nonreactive (Nonreactive) Glucose 1 Hr 50 gm 96 mg/dL (70-140) Rhogam given: No Assessment & Plan (1) Positive GBS test: COMMENT: treat if in labor. (2) Obesity affecting : QUALIFIERS: Trimester: second trimester Obesity type affecting : unspecified obesity Qualified Code(s): O99.212 - Obesity complicating , second trimester COMMENT: A1C (3) Supervision of high-risk : QUALIFIERS: Trimester: second trimester Qualified Code(s): O09.92 - Supervision of high risk , unspecified, second trimester COMMENT: PRR, , MANUEL 07/04/24, girl [place] JOSELYN Dickinson (4) Borderline personality disorder: COMMENT: sees counselor (5) : QUALIFIERS: Weeks of gestation: 38 weeks Qualified Code(s): Z3A.38 - 38 weeks gestation of COMMENT: NIPT with gender, declines carrier. nl anatomy (6) Uterine anomaly: COMMENT: tilted (7) ASCUS with positive high 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al: COMMENT: [place] done repeat pap 08/04 (8) Marijuana smoker: COMMENT: occasional for anxiety, counseling provided. last Oct 2023 (9) Depression: QUALIFIERS: Depression Type: unspecified Qualified Code(s): F32.A - Depression, unspecified COMMENT: erna okeefe counselor (10) Uterine rupture: (11) delivery delivered: COMMENT: RLTCS uterine rupture girl janusz 38 SM PLAN: Plan proceeded with stat RLTCS 08/12/24 0109 Cosigner Signature (if applicable): CC: Dr. Meena Luciano MD; No Primary Care Physician~ Signed [facility]05-29-2025 [facility] [address] [place] [address], [address] [place] [address] OFFICE VISIT Date of Service: 08/08/24 MR#: [id number] Acct: [id number] Name: DAVID POST Rep #: [id number] : 1990 Provider: REECE Marin Age/Sex: 33/F Location: [facility] Status: Signed Intake Vital Signs 07/12/24 10:04 08/02/24 11:21 08/08/24 09:09 Height 5 ft 5 in 5 ft 5 in 5 ft 5 in Weight: 194 lb 4 oz BMI 32.3 BP 131/78 H Intake Visit Reasons: 38 wk ob Chief Complaint: 38wk OB Documentation Clerk Required: No Is patient in pain?: No Allergies bee venom protein (honey bee) (bee sting) Allergy (Verified 08/08/24 09:08) Hives Medications ?Medication ?Instructions ?Recorded ?Confirmed ?Type multivitamin no.47-iron fum 27 1 cap PO DAILY pregnanc y 09/02/22 08/08/24 History mg-folate no.1 1 mg-dha 300 mg capsule (PNV-DHA) ferrous gluconate 240 mg (27 mg 240 mg PO QDAY 4 08/08/24 History iron) tablet (Ferate) nicotine 7 mg/24 hr daily 1 patch transdermal Q24H #14 ea 03/22/24 08/08/24 Rx transdermal patch buspirone 10 mg tablet 5 mg (1/2 x 10 mg) PO BID #6 0 tabs 05/13/24 08/08/24 Rx clobetasol 0.05 % topical cream topical BID 05/13/24 0 08/08/24 History Last Menstrual Period: 09/28/23 : No PFSH PFSH Medical History Uterine anomaly Trauma Anxiety History of asthma History of back pain history of knee pain History of anemia Social History adopted: Yes household members: significant other, children and other details: JOSELYN Luciano (has two kids Ryan Khan lives with his mom) [facility] housing: house number of children: 2 current occupational status: other current occupation: [email or web address] current occupational exposures/hazards: No pets and animals: Yes (not managing litter box) pets and animals: cat(s) leisure activities: exercise history of recent travel: No sexually active: Yes Smoking Status: Former smoker quit date: 03/13/22 Tobacco: How many years used: 8 quit status: quit date established alcohol intake: never substance use type: marijuana and other details: last Oct 2022, counseling provided. Pt agreeable to drug testing well-balanced diet: daily or most days eating out: rarely or never during the past year weight has: decreased > 10 lbs what type of physical activity do you participate in: walking frequency: 1-2 times per week yesenia/taoist: None seatbelt use: always do you feel safe at home: Yes additional social history: [facility] History 2 Elective abortions Hx Para 1 Spontaneous abortions Hx # Term Pregnancies 1 Ectopic pregnancies Hx # Pregnancies Multiple births # of living children 1 Past Pregnancies Del. Date Name GA/Weeks Outcome Route Bth Weight Gen Labor Lgth Anesthesia Del Locatn Provider FOB 04/29/23 Jason 39 live - full term 6lbs 12oz Male [facility] Mustapha Luciano Delivery Date: 04/29/23 Last Updated by: Dee Dee Dejesus [facility] nrfhts HPI 38 wk ob Details: DAVID POST is a 33 year old who presents for routine OB visit. OB Visit MANUEL Calculator Estimated Delivery Date Method Current WG Current Estimate 08/21/24 Ultrasound #1 38w 1d Other Estimates 07/04/24 LMP (Uncertain) 45w 0d 08/18/24 Ultrasound #2 38w 4d Expected Delivery Route/Plan R C/S with JV Specific Issue/Plans Covid status: [] Flu vaccine: [] Tdap vaccine: discussed Rhogam: [] LARC form signed: [] Problem list reviewed and updated with the most current plan of care details and appropriate ordersplaced. Relevant counseling for the gestational age provided. Continue routine care and follow up unless otherwise noted in visit notes/problem list details Initial Weight: 181 lb Date -?-?-?-?-?-?-?-?-?-?-?-?- EGA Weight BP Urine Prot -?-?-?-?-?-?-?-?-?-?-?-?- Glucose FHR FuHt Pres Dilation -?-?-?-?-?-?-?-?-?-?-?-?- Effaced St Visit Note 12/21/23 -?-?-?-?-?-?-?-?-?-?-?-?- 5w 1d 181 lb 8 oz (+8 oz) 110/70 -?-?-?-?-?-?-?-?-?-?-?-?- -?-?-?-?-?-?-?-?-?-?-?-?- KW- CRL not cons with dates. SM assisted with scan. measuring 5.1 weeks. plan for hcgs and repeat US next week. 02/23/24 -?-?-?-?-?-?-?-?-?-?-?-?- 14w 2d 173 lb (-8 lb) 119/72 Negative -?-?-?-?-?-?-?-?-?-?-?-?- Negative 147 -?-?-?-?-?-?-?-?-?-?-?-?- JV- pt was absen t for a weeks due to insurance loss. She states that they have insurance now . new ob lab and NIPT ordered. unsure about rpt section vs trial of labor. 03/22/24 -?-?-?-?-?-?-?-?-?-?-?-?- 18w 2d 175 lb (-6 lb) 108/67 Negative -?-?-?-?-?-?-?-?-?-?-?-?- Negative 145 -?-?-?-?-?-?-?-?-?-?-?-?- SM- no vb lof go od fm nro egular ctx SM- no vb lof good fm nro eg ular ctx discussed plan RLTCS at 40-41 weeks plan TOLAC prior 04/15/24 -?-?-?-?-?-?-?-?-?-?-?-?- 21w 5d 176 lb 6 oz (-4 lb 10 oz) 98/64 Negative -?-?-?-?-?-?-?-?-?-?-?-?- Negative 155 -?-?-?-?-?-?-?-?-?-?-?-?- MH-No VB, LOF. G ood FM. Denies concerns 05/13/24 -?-?-?-?-?-?-?-?-?-?-?-?- 25w 5d 181 lb 2 oz (+2 oz) 110/68 Negative -?-?-?-?-?-?-?-?-?-?-?-?- Negative 140 26 -?-?-?-?-?-?-?-?-?-?-?-?- KW- no vb/lof/ct x. good fm. 28 week labs discussed. chiropractor for back pain. 05/27/24 -?-?-?-?-?-?-?-?-?-?-?-?- 27w 5d 181 lb 4 oz (+4 oz) 108/66 Negative -?-?-?-?-?-?-?-?-?-?-?-?- Negative 138 28 -?-?-?-?-?-?-?-?-?-?-?-?- KW- no vb/crampi ng. good fm. labs today. [facility] today. 06/14/24 -?-?-?-?-?-?-?-?-?-?-?-?- 30w 2d 182 lb (+16 oz) 129/78 Negative -?-?-?-?-?-?-?-?-?-?-?-?- Negative 140 30 -?-?-?-?-?-?-?-?-?-?-?-?- SM- no vb lof go od fm no reulgar ctx 06/24/24 -?-?-?-?-?-?-?-?-?-?-?-?- 31w 5d 183 lb 6 oz (+2 lb 6 oz) 120/73 Negative -?-?-?-?-?-?-?-?-?-?-?-?- Negative 135 30 -?-?-?-?-?-?-?-?-?-?-?-?- KW- no vb/lof/ct x. good fm no concerns today 07/12/24 -?-?-?-?-?-?-?-?-?-?-?-?- 34w 2d 188 lb 2 oz (+7 lb 2 oz) 116/73 Negative -?-?-?-?-?-?-?-?-?-?-?-?- Negative 130 34 Cephalic -?-?-?-?-?-?-?-?-?-?-?-?- KW- no vb/lof/ct x. good fm. stretching for low back pain. 07/22/24 -?-?-?-?-?-?-?-?-?-?-?-?- 35w 5d 184 lb 4 oz (+3 lb 4 oz) 118/73 Negative -?-?-?-?-?-?-?-?-?-?-?-?- Negative 135 35 Cephalic -?-?-?-?-?-?-?-?-?-?-?-?- JV- cephalic on scan today. (unofficial in office scan) discussed today. has backup plan for rpt section on august 21. no lof, vaginal bleeding, or dec fm. 08/02/24 -?-?-?-?-?-?-?-?-?-?-?-?- 37w 2d 192 lb 4 oz (+11 lb 4 oz) 129/81 Negative -?-?-?-?-?-?-?-?-?-?-?-?- Negative 125 36 0 -?-?-?-?-?-?-?-?-?-?-?-?- -3 KW- no v b/lof. good fm. having some contractions at night-feels like baby is dropping. 08/08/24 -?-?--?-?-?-?-?-?-?-?-?-?- 38w 1d 194 lb 4 oz (+13 lb 4 oz) 131/78 Negative -?-?-?-?-?-?-?-?-?-?-?-?- Negative 130 38 Cephalic 2 .5 -?-?-?-?-?-?-?-?-?-?-?-?- 60 -2 KW- no vb/ lof. irregular ctx. good fm. labor precautions. would like membrane sweep next week. ACOG First Trimester First Trimester: Desire for , Alcohol, Tobacco Cessation, Illicit/Recreational Drug/Substance Use, Intimate Partner Violence, Barriers to care, Unstable Housing, Communication Barriers, Environmental/Work Hazards, Anticipated Course of Care, Toxoplasmosis Precations, Use of Any med ications, Sexual activity, Exercise, Dental Care, Sauna/Hot tub use, Seat Belt use, Childbirth classes/Hospital facilities, Travel, Indications for Ultrasound and Screening for Aneuploidy; Discussed Second Trimester Second Trimester: Signs and Symptoms of Labor, Selecting a care provider, Reproductive Life Planning & Contreception, Care Planning, Depression/Anxiety and Intimate Partner Violence; Discussed Tobacco Cessation Third Trimester Third Trimester: Pain Management Plans, Labor support person(s), Immediate Larc, Movement Monitoring, Signs and Symptoms of Preeclampsia and [place] Education ROS Const Reports system reviewed and no additional complaints, except as documented Eyes Reports system reviewed and no additional complaints, except as documented ENT Reports system reviewed and no additional complaints, except as documented Card Reports system reviewed and no additional complaints, except as documented Resp Reports system reviewed and no additional complaints, except as documented GI Reports system reviewed and no additional complaints, except as documented, Denies nausea and Denies vomiting Reports system reviewed and no additional complaints, except as documented Musc Reports system reviewed and no additional complaints, except as documented Skin/Breast Reports system reviewed and no additional complaints, except as documented Neuro Yes system reviewed and no additional complaints, except as documented Psych Reports system reviewed and no additional complaints, except as documented Endo Reports system reviewed and no additional complaints, except as documented Antoine/Lymph Reports system reviewed and no additional complaints, except as documented Aller/Immun Reports system reviewed and no additional complaints, except as documented Exam Const General: cooperative, healthy appearing and no acute distress Orientation: alert, awake and oriented x3 Neck Neck: normal visual inspection and full ROM Resp Effort & Inspection: normal respiratory effort, able to speak in complete sentences and symmetric chest movement GI Inspection: normal to inspection Palpation: soft and other Other: gravid Skin General: no rashes or lesions noted Neuro General: patient alert, patient awake and patient oriented x3 Cognition: normal cognition Speech: speech normal Gait: normal gait Motor: muscle tone normal throughout Extrem General: normal to inspection and full ROM Psych Appearance: grossly normal Mental Status: mental status grossly normal Mood: congruent mood Affect: normal affect Speech and Movement: speech and movement normal Attitude: cooperative Thought Process: normal Thought Content: normal Judgment: judgment good Results POC Urinalysis 2 Dip (Clinic) Office Urine Glucose Negative Last Edit by Yair Stevens on 08/08/24 09:17 Office Urine Protein Negative Last Edit by Yari Stevens on 08/08/24 09:17 Coding Level of Care Code Off vis,est,level 3 Diagnoses Positive GBS test B95.1 Previous section Z98.891 Obesity affecting in second trimester, unspecified obesity type O99.212 Obesity type affecting : unspecified obesity Trimester: second trimester Supervision of high risk in second trimester O09.92 Trimester: second trimester 38 weeks gestation of Z3A.38 Weeks of gestation: 38 weeks Borderline personality disorder F60.3 Uterine anomaly Q51.9 ASCUS with positive high 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al R87.610; R87.810 Marijuana smoker F12.90 Depression, unspecified depression type F32.A Depression Type: unspecified Assessment and Plan Assessment and Plan (1) Positive GBS test: Status: Acute Comment: treat if in labor. (2) Previous section: Status: Acute Comment: Desires TOLAC vs repeat c/s with SM, RLTCS scheduled for 08/21 @ 7:15 with JDesiree. (DELPHINE out of office allweek) (3) Obesity affecting : Status: Acute Qualifiers: Obesity type affecting : unspecified obesity Trimester: second trimester Qualified Code(s): O99.212 - Obesity complicating , second trimester Comment: A1C (4) Supervision of high-risk : Status: Acute Qualifiers: Trimester: second trimester Qualified Code(s): O09.92 - Supervision of high risk , unspecified, second trimester Comment: PRR, , MANUEL 07/04/24, girl Janusz Martinezzie, BF Mustapha (5) : Status: Acute Qualifiers: Weeks of gestation: 38 weeks Qualified Code(s): Z3A.38 - 38 weeks gestation of Comment: NIPT with gender, declines carrier. nl anatomy (6) Borderline personality disorder: Status: Acute Comment: sees counselor (7) Uterine anomaly: Status: Acute Comment: tilted (8) ASCUS with positive high 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al: Status: Acute Comment: [place] done repeat pap 08/04 (9) Marijuana smoker: Status: Acute Comment: occasional for anxiety, counseling provided. last Oct 2023 (10) Depression: Status: Acute Qualifiers: Depression Type: unspecified Qualified Code(s): F32.A - Depression, unspecified Comment: erna okeefe counselor Orders: Orders POC Urinalysis 2 Dip (Clinic) Today Plan Details Additional Comments: ACOG trimester education reviewed and updated. see problem list details for updated plan management information and see below for orders placed atthis visit. [place] appropriate handout given. 08/08/24 0939 s CNM> Date _ Anna Marin CNM Cosignlianne Signature: Date (if applicable) CC: ~ [facility]03-17[facility]25 Evaluation note* Diagnosis Onset Date Resolution Status Admit Date 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 acute May 27, 2024 2:31pm Borderline personality disorder acute May 27, 2024 2:31pm Depression acute May 27 2:31pm Marijuana smoker acute May 272024 2:31pm Obesity affecting acute May 27, 2024 2:31pm Positive GBS test acute May 112024 2:31pm acute May 27 2:31pm Supervision of high-risk acute May 27, 2024 2:31pm Uterine anomaly acute May 2:31pm Previous section resolved May 27, 2024 2:31pm 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 acute June 14, 2024 2:46pm Borderline personality disorder acute June 14, 2024 2:46pm Depression acute June 14 2:46pm Marijuana smoker acute June 2:46pm Obesity affecting acute June 14, 2024 2:46pm Positive GBS test acute June 142024 2:46pm acute June 14 2:46pm Supervision of high-risk acute June 14, 2024 2:46pm Uterine anomaly acute June 2:46pm Previous section resolved June 14, 2024 2:46pm 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 acute June 24, 2024 2:23pm Borderline personality disorder acute June 24, 2024 2:23pm Depression acute June 24 2:23pm Marijuana smoker acute June 242024 2:23pm Obesity affecting acute June 24, 2024 2:23pm Positive GBS test acute June 112024 2:23pm acute June 24 2:23pm Supervision of high-risk acute June 24, 2024 2:23pm Uterine anomaly acute June 2:23pm Previous section resolved June 24, 2024 2:23pm 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 acute July 12, 2024 10 :01am Borderline personality disorder acute July 12, 2024 10 :01am Depression acute July 12, 2024 10:01am Marijuana smoker acute July 12, 2024 10:01am Obesity affecting acute July 12, 2024 10:01am Positive GBS test acute July 10:01am acute July 12, 2024 10:01am Supervision of high-risk acute July 12, 2024 10 :01am Uterine anomaly acute July 12, 2024 10:01am Previous section resolved July 12, 2024 10:01am 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 acute July 22, 2024 1 0:19am Borderline personality disorder acute July 22, 2024 1 0:19am Depression acute July 22, 2024 10:19am Marijuana smoker acute July 10:19am Obesity affecting acute July 22, 2024 10:19am Positive GBS test acute July h2024 10:19am acute July 22, 2024 10:19am Supervision of high-risk acute July 22, 2024 1 0:19am Uterine anomaly acute July 22, 2024 10:19am Previous section resolved July 22, 2024 10:19am 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 acute August 02, 2024 1 1:18am Borderline personality disorder acute August 02, 2024 1 1:18am Depression acute August 02, 2024 11:18am Marijuana smoker acute July 11:18am Obesity affecting acute August 02, 2024 11:18am Positive GBS test acute July 11:18am acute August 02, 2024 11:18am Supervision of high-risk acute August 02, 2024 1 1:18am Uterine anomaly acute August 02, 2024 11:18am Previous section resolved August 02, 2024 11:18am 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 acute August 08, 2024 9 :07am Borderline personality disorder acute August 08, 2024 9 :07am Depression acute August 08, 2024 9:07am Marijuana smoker acute July 9:07am Obesity affecting acute August 08, 2024 9:07am Positive GBS test acute July h2024 9:07am acute August 08, 2024 9:07am Supervision of high-risk acute August 08, 2024 9 :07am Uterine anomaly acute August 08, 2024 9:07am Previous section resolved August 08, 2024 9:07am 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 acute August 11, 2024 1 1:33pm Borderline personality disorder acute August 11, 2024 1 1:33pm delivery delivered acute August 11, 2024 11:33pm Depression acute August 11, 2024 11:33pm Marijuana smoker acute August 11:33pm Obesity affecting acute August 11, 2024 11:33pm Positive GBS test acute August 11:33pm acute August 11, 2024 11:33pm Supervision of high-risk acute August 11, 2024 1 1:33pm Uterine anomaly acute August 11, 2024 11:33pm Uterine rupture acute August 11, 2024 11:33pm delivery delivered acute August 27, 2024 11:05am Routine Follow-Up noneact puneet September 24, 2024 10:54am [facility] Work Phone: 1(730) 796-733803-03-2025 Evaluation note* Diagnosis Onset Date Resolution Status Admit Date 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 acute May 13, 2024 10:58am Borderline personality disorder acute May 13, 2024 10:58am Depression acute May 13 10:58am Marijuana smoker acute May 10:58am Obesity affecting acute May 13, 2024 10:58am Positive GBS test acute May 132024 10:58am acute May 13 10:58am Supervision of high-risk acute May 13, 2024 10:58am Uterine anomaly acute May 10:58am Previous section resolved May 13, 2024 10:58am 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 acute May 27, 2024 2:31pm Borderline personality disorder acute May 27, 2024 2:31pm Depression acute May 27 2:31pm Marijuana smoker acute May 272024 2:31pm Obesity affecting acute May 27, 2024 2:31pm Positive GBS test acute May 112024 2:31pm acute May 27 2:31pm Supervision of high-risk acute May 27, 2024 2:31pm Uterine anomaly acute May 2:31pm Previous section resolved May 27, 2024 2:31pm 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 acute June 14, 2024 2:46pm Borderline personality disorder acute June 14, 2024 2:46pm Depression acute June 14 2:46pm Marijuana smoker acute June 2:46pm Obesity affecting acute June 14, 2024 2:46pm Positive GBS test acute June 142024 2:46pm acute June 14 2:46pm Supervision of high-risk acute June 14, 2024 2:46pm Uterine anomaly acute June 2:46pm Previous section resolved June 14, 2024 2:46pm 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 acute June 24, 2024 2:23pm Borderline personality disorder acute June 24, 2024 2:23pm Depression acute June 24 2:23pm Marijuana smoker acute June 242024 2:23pm Obesity affecting acute June 24, 2024 2:23pm Positive GBS test acute June 112024 2:23pm acute June 24 2:23pm Supervision of high-risk acute June 24, 2024 2:23pm Uterine anomaly acute June 2:23pm Previous section resolved June 24, 2024 2:23pm 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 acute July 12, 2024 10 :01am Borderline personality disorder acute July 12, 2024 10 :01am Depression acute July 12, 2024 10:01am Marijuana smoker acute July 12, 2024 10:01am Obesity affecting acute July 12, 2024 10:01am Positive GBS test acute July 10:01am acute July 12, 2024 10:01am Supervision of high-risk acute July 12, 2024 10 :01am Uterine anomaly acute July 12, 2024 10:01am Previous section resolved July 12, 2024 10:01am 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 acute July 22, 2024 1 0:19am Borderline personality disorder acute July 22, 2024 1 0:19am Depression acute July 22, 2024 10:19am Marijuana smoker acute July 10:19am Obesity affecting acute July 22, 2024 10:19am Positive GBS test acute July 10:19am acute July 22, 2024 10:19am Supervision of high-risk acute July 22, 2024 1 0:19am Uterine anomaly acute July 22, 2024 10:19am Previous section resolved July 22, 2024 10:19am 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 acute August 02, 2024 1 1:18am Borderline personality disorder acute August 02, 2024 1 1:18am Depression acute August 02, 2024 11:18am Marijuana smoker acute July 11:18am Obesity affecting acute August 02, 2024 11:18am Positive GBS test acute July 11:18am acute August 02, 2024 11:18am Supervision of high-risk acute August 02, 2024 1 1:18am Uterine anomaly acute August 02, 2024 11:18am Previous section resolved August 02, 2024 11:18am 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 acute August 08, 2024 9 :07am Borderline personality disorder acute August 08, 2024 9 :07am Depression acute August 08, 2024 9:07am Marijuana smoker acute July 9:07am Obesity affecting acute August 08, 2024 9:07am Positive GBS test acute July 9:07am acute August 08, 2024 9:07am Supervision of high-risk acute August 08, 2024 9 :07am Uterine anomaly acute August 08, 2024 9:07am Previous section resolved August 08, 2024 9:07am 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 acute August 11, 2024 1 1:33pm Borderline personality disorder acute August 11, 2024 1 1:33pm delivery delivered acute August 11, 2024 11:33pm Depression acute August 11, 2024 11:33pm Marijuana smoker acute August 11:33pm Obesity affecting acute August 11, 2024 11:33pm Positive GBS test acute August 11:33pm acute August 11, 2024 11:33pm Supervision of high-risk acute August 11, 2024 1 1:33pm Uterine anomaly acute August 11, 2024 11:33pm Uterine rupture acute August 11, 2024 11:33pm [facility] Work Phone: 1(101) 728-341002-13-2025 NoteHNO ID: [id number] Author: NICOLÁS MALIK APRN.DIRECTOR OF SOCIAL WORK Service: ? Author Type: Nurse Practitioner Type: Progress Notes Filed: 04/25/2024 16:54 Note Text: Subjective HPI Nontoxic-appearing 24-week 33-year-old female presents urgent care chief complaint new onset right ear pain. Duration of symptoms 1 day. Associated symptoms right ear pain muffled hearing. Recently had a flulike illness. Those symptoms did improve. Ear pain is new. No ear trauma loss of hearing or otorrhea. Tylenol for pain management this helped. No fevers. Past medical history prescription medications allergies reviewed. .Patient presents with: Ear Pain: R ear pain, down into jaw, loss of hearing x 1 day History reviewed. No pertinent past medical history. PAST SURGICAL HISTORY Procedure Laterality Date NONE ALLERGIES Patient has no known allergies. MEDICATIONS nicotine (NICODERM) 7 mg/24 hr 1 patch transdermally every 24 hours no115/iron/folic acid ( 19 ORAL) Take 1 tablet by mouth once daily. therapeutic multivitamin-minerals (THERAPY M) 9 mg iron-400 mcg tablet Take 2 tablets by mouth once daily. amoxicillin (AMOXIL) 875 mg tablet Take 1 tablet by mouth two times a day for 7 days. fluticasone (FLONASE ALLERGY RELIEF) 50 mcg/actuation nasal spray Use 1 [place] in each nostril once daily. (Patient not taking: Reported on 04/25/2024) FAMILY HISTORY Adopted: Yes Social History Tobacco Use Smoking status: Every Day Types: Cigarettes Smokeless tobacco: Never Tobacco comments: 4-5 a day Vaping Use Vaping status: Never Used Substance Use Topics Alcohol use: Yes Drug use: Yes Types: Marijuana BP 100/62 Pulse 71 Temp 36.5 ?C (97.7 ?F) Resp 20 Wt 81 kg (178 lb 9.2 oz) LMP (LMP Unknown) SpO2 99% BMI (P) 30.86 kg/m? Review of Systems Constitutional: Negative for chills, fever and malaise/fatigue. HENT: Positive for congestion and ear pain. Negative for ear discharge, sinus pain and sore throat. Eyes: Negative for blurred vision, pain, discharge and redness. Respiratory: Negative for cough, hemoptysis, sputum production, shortness of breath, wheezing and stridor. Cardiovascular: Negative for chest pain. Gastrointestinal: Negative for abdominal pain, diarrhea, nausea and vomiting. Musculoskeletal: Negative for myalgias. Skin: Negative for itching and rash. Neurological: Negative for dizziness and headaches. Objective Physical Exam Constitutional: General: She is not in acute distress. Appearance: She is not diaphoretic. HENT: Head: Normocephalic. Jaw: No trismus, tenderness, swelling or pain on movement. Right Ear: Ear canal and external ear normal. Decreased hearing noted. Tympanic membrane is erythematous and bulging. Left Ear: Hearing, tympanic membrane, ear canal and external ear normal. Nose: Congestion present. Mouth/Throat: Mouth: Mucous membranes are moist. Pharynx: Oropharynx is clear. Uvula midline. No pharyngeal swelling, oropharyngeal exudate, posterior oropharyngeal erythema or uvula swelling. Eyes: Conjunctiva/sclera: Conjunctivae normal. Pupils: Pupils are equal, round, and reactive to light. Cardiovascular: Rate and Rhythm: Normal rate and regular rhythm. Heart sounds: Normal heart sounds. Pulmonary: Effort: Pulmonary effort is normal. No tachypnea, accessory muscle usage or respiratory distress. Breath sounds: Normal breath sounds. No stridor. No wheezing, rhonchi or rales. Abdominal: General: There is no distension. Palpations: Abdomen is soft. Tenderness: There is no abdominal tenderness. There is no guarding or rebound. Musculoskeletal: Cervical back: Normal range of motion and neck supple. No edema, erythema, rigidity or tenderness. No pain with movement. Normal range of motion. Lymphadenopathy: Cervical: No cervical adenopathy. Skin: General: Skin is warm and dry. Neurological: Mental Status: She is alert and oriented to person, place, and time. ASSESSMENT/PLAN: 1. Acute otitis media, right - ICD9: 382.9, ICD10: H66.91 Diagnosed otitis media right ear. Placed on amoxicillin. Patient was educated on supportive therapies. Patient will follow up with primary care provider as needed. Patient was instructed to immediately proceed to emergency room for any new, worsening, or symptoms lasting longer than anticipated. The patient's clinical presentation is otherwise unremarkable at this time. Based on exam and clinical finding, the patient is stable for discharge. Plan of care was discussed with patient. Patient verbalizes understanding and agrees to plan of care. This note was generated using E la Carte software. It may contain errors in wording, punctuation, or spelling. Nicolás Malik APRN.[facility]02-13-2025 History of Present illness Narrative* Nicolás Malik APRN.[facility] - 04/25/2024 4:47 PM EST Subjective HPI Nontoxic-appearing 24-week 33-year-old female presents urgent care chief complaint new onset right ear pain. Duration of symptoms 1 day. Associated symptoms right ear pain muffled hearing. Recently had a flulike illness. Those symptoms did improve. Ear pain is new. No ear trauma loss of hearing or otorrhea. Tylenol for pain management this helped. No fevers. Past medical history prescription medications allergies reviewed. .Patient presents with: Ear Pain: R ear pain, down into jaw, loss of hearing x 1 day History reviewed. No pertinent past medical history. PAST SURGICAL HISTORY Procedure Laterality Date NONE ALLERGIES Patient has no known allergies. MEDICATIONS nicotine (NICODERM) 7 mg/24 hr 1 patch transdermally every 24 hours no115/iron/folic acid ( 19 ORAL) Take 1 tablet by mouth once daily. therapeutic multivitamin-minerals (THERAPY M) 9 mg iron-400 mcg tablet Take 2 tablets by mouth oncedaily. amoxicillin (AMOXIL) 875 mg tablet Take 1 tablet by mouth two times a day for 7 days. fluticasone (FLONASE ALLERGY RELIEF) 50 mcg/actuation nasal spray Use 1 [place] in each nostril once daily. (Patient not taking: Reported on 04/25/2024) FAMILY HISTORY Adopted: Yes Social History Tobacco Use Smoking status: Every Day Types: Cigarettes Smokeless tobacco: Never Tobacco comments: 4-5 a day Vaping Use Vaping status: Never Used Substance Use Topics Alcohol use: Yes Drug use: Yes Types: Marijuana BP 100/62 Pulse 71 Temp 36.5 C (97.7 F) Resp 20 Wt 81 kg (178 lb 9.2 oz) LMP (LMP Unknown) SpO2 99% BMI (P) 30.86 kg/m Review of Systems Constitutional: Negative for chills, fever and malaise/fatigue. HENT: Positive for congestion and ear pain. Negative for ear discharge, sinus pain and sore throat. Eyes: Negative for blurred vision, pain, discharge and redness. Respiratory: Negative for cough, hemoptysis, sputum production, shortness of breath, wheezing and stridor. Cardiovascular: Negative for chest pain. Gastrointestinal: Negative for abdominal pain, diarrhea, nausea and vomiting. Musculoskeletal: Negative for myalgias. Skin: Negative for itching and rash. Neurological: Negative for dizziness and headaches. Objective Physical Exam Constitutional: General: She is not in acute distress. Appearance: She is not diaphoretic. HENT: Head: Normocephalic. Jaw: No trismus, tenderness, swelling or pain on movement. Right Ear: Ear canal and external ear normal. Decreased hearing noted. Tympanic membrane is erythematous and bulging. Left Ear: Hearing, tympanic membrane, ear canal and external ear normal. Nose: Congestion present. Mouth/Throat: Mouth: Mucous membranes are moist. Pharynx: Oropharynx is clear. Uvula midline. No pharyngeal swelling, oropharyngeal exudate, posterior oropharyngeal erythema or uvula swelling. Eyes: Conjunctiva/sclera: Conjunctivae normal. Pupils: Pupils are equal, round, and reactive to light. Cardiovascular: Rate and Rhythm: Normal rate and regular rhythm. Heart sounds: Normal heart sounds. Pulmonary: Effort: Pulmonary effort is normal. No tachypnea, accessory muscle usage or respiratory distress. Breath sounds: Normal breath sounds. No stridor. No wheezing, rhonchi or rales. Abdominal: General: There is no distension. Palpations: Abdomen is soft. Tenderness: There is no abdominal tenderness. There is no guarding or rebound. Musculoskeletal: Cervical back: Normal range of motion and neck supple. No edema, erythema, rigidity or tenderness. No pain with movement. Normal range of motion. Lymphadenopathy: Cervical: No cervical adenopathy. Skin: General: Skin is warm and dry. Neurological: Mental Status: She is alert and oriented to person, place, and time. ASSESSMENT/PLAN: 1. Acute otitis media, right - ICD9: 382.9, ICD10: H66.91 Diagnosed otitis media right ear. Placed on amoxicillin. Patient was educated on supportive therapies. Patient will follow up with primary care provider as needed. Patient was instructed to immediately proceed to emergency room for any new, worsening, or symptoms lasting longer than anticipated. The patient's clinical presentation is otherwise unremarkable at this time. Based on exam and clinical finding, the patient is stable for discharge. Plan of care was discussed with patient. Patient verbalizes understanding and agrees to plan of care. This note was generated using E la Carte software. It may contain errors in wording, punctuation, or spelling. 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 acute May 13, 2024 10:58am Borderline personality disorder acute May 13, 2024 10:58am Depression acute May 13 10:58am Marijuana smoker acute May 10:58am Obesity affecting acute May 13, 2024 10:58am Positive GBS test acute May 132024 10:58am acute May 13 10:58am Previous section acute May 13, 2024 10:58am Supervision of high-risk acute May 13, 2024 10:58am Uterine anomaly acute May 10:58am 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 acute May 27, 2024 2:31pm Borderline personality disorder acute May 27, 2024 2:31pm Depression acute May 27 2:31pm Marijuana smoker acute May 272024 2:31pm Obesity affecting acute May 27, 2024 2:31pm Positive GBS test acute May 112024 2:31pm acute May 27 2:31pm Previous section acute May 27, 2024 2:31pm Supervision of high-risk acute May 27, 2024 2:31pm Uterine anomaly acute May 2:31pm 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 acute June 14, 2024 2:46pm Borderline personality disorder acute June 14, 2024 2:46pm Depression acute June 14 2:46pm Marijuana smoker acute June 2:46pm Obesity affecting acute June 14, 2024 2:46pm Positive GBS test acute June 142024 2:46pm acute June 14 2:46pm Previous section acute June 14, 2024 2:46pm Supervision of high-risk acute June 14, 2024 2:46pm Uterine anomaly acute June 2:46pm 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 acute June 24, 2024 2:23pm Borderline personality disorder acute June 24, 2024 2:23pm Depression acute June 24 2:23pm Marijuana smoker acute June 242024 2:23pm Obesity affecting acute June 24, 2024 2:23pm Positive GBS test acute June 112024 2:23pm acute June 24 2:23pm Previous section acute June 24, 2024 2:23pm Supervision of high-risk acute June 24, 2024 2:23pm Uterine anomaly acute June 2:23pm 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 acute July 12, 2024 10 :01am Borderline personality disorder acute July 12, 2024 10 :01am Depression acute July 12, 2024 10:01am Marijuana smoker acute July 12, 2024 10:01am Obesity affecting acute July 12, 2024 10:01am Positive GBS test acute July 10:01am acute July 12, 2024 10:01am Previous section acute July 12, 2024 10:01am Supervision of high-risk acute July 12, 2024 10 :01am Uterine anomaly acute July 12, 2024 10:01am 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 acute July 22, 2024 1 0:19am Borderline personality disorder acute July 22, 2024 1 0:19am Depression acute July 22, 2024 10:19am Marijuana smoker acute July 10:19am Obesity affecting acute July 22, 2024 10:19am Positive GBS test acute July 10:19am acute July 22, 2024 10:19am Previous section acute July 22, 2024 10:19am Supervision of high-risk acute July 22, 2024 1 0:19am Uterine anomaly acute July 22, 2024 10:19am 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 acute August 02, 2024 1 1:18am Borderline personality disorder acute August 02, 2024 1 1:18am Depression acute August 02, 2024 11:18am Marijuana smoker acute July 11:18am Obesity affecting acute August 02, 2024 11:18am Positive GBS test acute July 11:18am acute August 02, 2024 11:18am Previous section acute August 02, 2024 11:18am Supervision of high-risk acute August 02, 2024 1 1:18am Uterine anomaly acute August 02, 2024 11:18am 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 acute August 08, 2024 9 :07am Borderline personality disorder acute August 08, 2024 9 :07am Depression acute August 08, 2024 9:07am Marijuana smoker acute July 9:07am Obesity affecting acute August 08, 2024 9:07am Positive GBS test acute July 9:07am acute August 08, 2024 9:07am Previous section acute August 08, 2024 9:07am Supervision of high-risk acute August 08, 2024 9 :07am Uterine anomaly acute August 08, 2024 9:07am [facility] Work Phone: 1(285) 146-324202-03-2025 Evaluation note* Diagnosis Onset Date Resolution Status Admit Date Borderline personality disorder acute April 15 3:44pm Depression acute April 15, 2024 3:44pm Marijuana smoker acute April 15, 2024 3:44pm Obesity affecting acute April 15, 2024 3:44pm Positive GBS test acute 2024 3:44pm acute April 15, 2024 3:44pm Supervision of high-risk acute April 15 3:44pm Uterine anomaly acute April 15, 2024 3:44pm Previous section resolved April 15, 2024 3:44pm 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 acute May 13, 2024 10:58am Borderline personality disorder acute May 13, 2024 10:58am Depression acute May 13 10:58am Marijuana smoker acute May 10:58am Obesity affecting acute May 13, 2024 10:58am Positive GBS test acute May 132024 10:58am acute May 13 10:58am Supervision of high-risk acute May 13, 2024 10:58am Uterine anomaly acute May 10:58am Previous section resolved May 13, 2024 10:58am 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 acute May 27, 2024 2:31pm Borderline personality disorder acute May 27, 2024 2:31pm Depression acute May 27 2:31pm Marijuana smoker acute May 272024 2:31pm Obesity affecting acute May 27, 2024 2:31pm Positive GBS test acute May 112024 2:31pm acute May 27 2:31pm Supervision of high-risk acute May 27, 2024 2:31pm Uterine anomaly acute May 2:31pm Previous section resolved May 27, 2024 2:31pm 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 acute June 14, 2024 2:46pm Borderline personality disorder acute June 14, 2024 2:46pm Depression acute June 14 2:46pm Marijuana smoker acute June 2:46pm Obesity affecting acute June 14, 2024 2:46pm Positive GBS test acute June 142024 2:46pm acute June 14 2:46pm Supervision of high-risk acute June 14, 2024 2:46pm Uterine anomaly acute June 2:46pm Previous section resolved June 14, 2024 2:46pm 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 acute June 24, 2024 2:23pm Borderline personality disorder acute June 24, 2024 2:23pm Depression acute June 24 2:23pm Marijuana smoker acute June 242024 2:23pm Obesity affecting acute June 24, 2024 2:23pm Positive GBS test acute June 112024 2:23pm acute June 24 2:23pm Supervision of high-risk acute June 24, 2024 2:23pm Uterine anomaly acute June 2:23pm Previous section resolved June 24, 2024 2:23pm 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 acute July 12, 2024 10 :01am Borderline personality disorder acute July 12, 2024 10 :01am Depression acute July 12, 2024 10:01am Marijuana smoker acute July 12, 2024 10:01am Obesity affecting acute July 12, 2024 10:01am Positive GBS test acute July 10:01am acute July 12, 2024 10:01am Supervision of high-risk acute July 12, 2024 10 :01am Uterine anomaly acute July 12, 2024 10:01am Previous section resolved July 12, 2024 10:01am 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 acute July 22, 2024 1 0:19am Borderline personality disorder acute July 22, 2024 1 0:19am Depression acute July 22, 2024 10:19am Marijuana smoker acute July 10:19am Obesity affecting acute July 22, 2024 10:19am Positive GBS test acute July 10:19am acute July 22, 2024 10:19am Supervision of high-risk acute July 22, 2024 1 0:19am Uterine anomaly acute July 22, 2024 10:19am Previous section resolved July 22, 2024 10:19am 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 acute August 02, 2024 1 1:18am Borderline personality disorder acute August 02, 2024 1 1:18am Depression acute August 02, 2024 11:18am Marijuana smoker acute July 11:18am Obesity affecting acute August 02, 2024 11:18am Positive GBS test acute July 11:18am acute August 02, 2024 11:18am Supervision of high-risk acute August 02, 2024 1 1:18am Uterine anomaly acute August 02, 2024 11:18am Previous section resolved August 02, 2024 11:18am 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 acute August 08, 2024 9 :07am Borderline personality disorder acute August 08, 2024 9 :07am Depression acute August 08, 2024 9:07am Marijuana smoker acute July 9:07am Obesity affecting acute August 08, 2024 9:07am Positive GBS test acute July h2024 9:07am acute August 08, 2024 9:07am Supervision of high-risk acute August 08, 2024 9 :07am Uterine anomaly acute August 08, 2024 9:07am Previous section resolved August 08, 2024 9:07am 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 acute August 11, 2024 1 1:33pm Borderline personality disorder acute August 11, 2024 1 1:33pm delivery delivered acute August 11, 2024 11:33pm Depression acute August 11, 2024 11:33pm Marijuana smoker acute August 11:33pm Obesity affecting acute August 11, 2024 11:33pm Positive GBS test acute August 11:33pm acute August 11, 2024 11:33pm Supervision of high-risk acute August 11, 2024 1 1:33pm Uterine anomaly acute August 11, 2024 11:33pm Uterine rupture acute August 11, 2024 11:33pm [facility] Work Phone: 1(332) 950-435001-31-2025 Instructions* Patient Instructions* Shannon Newton APRN.DIRECTOR OF SOCIAL WORK - 04/12/2024 4:02 PM EST RESPIRATORY INFECTION GENERAL INFORMATION: An upper respiratory tract infection, or cold, is a viral infection of the airway passages. It can be caused by any one of almost 200 different viruses. Common symptoms include a runny or stuffy nose, sneezing, watery eyes, sore throat, cough, and slight fever. Colds are contagious, especially during the first 3 or 4 days and cannot be cured by antibiotics. They are spread by coughs, sneezes, anddirect contact, especially [id number]. A respiratory tract infection usually clears up in a few days, but some people may be sick for a week or two. INSTRUCTIONS: 1. Be careful not to blow your nose too hard because this may cause a nosebleed. 2. Use a cool-mist humidifier (vaporizer) to increase air moisture. This will make it easier for you to breathe. Do not use hot steam. 3. Rest as much as possible and get plenty of sleep. 4. Wash your hands often, especially after you blow your nose. Cover your mouth and nose with a tissue when you sneeze or cough. 5. Drink plenty of clear fluids (8 glasses a day) such as water, fruit juice, tea, clear soups, andcarbonated beverages. CONTACT YOUR DOCTOR IF : 1. Your fever lasts more than 3 days. 2. You have a sore throat that gets worse or you see white or yellow spots in your throat. 3. Your cough gets worse or lasts more than 10 days. 4. You develop a rash anywhere on your skin. 5. You have an earache or a headache. 6. You have thick greenish or yellowish discharge from your nose. RETURN IMMEDIATELY IF: 1. You cough up thick yellow, green, reyna, or bloody sputum. 2. You have difficulty breathing, pain in your chest, or your skin or nails look reyna or blue. 3. You have shaking chills or a temperature over 102 F (39 C). documented in this [facility]01-31-2025 NoteHNO ID: [id number] Author: SHANNON NEWTON APRN.DIRECTOR OF SOCIAL WORK Service: ? Author Type: Nurse Practitioner Type: Progress Notes Filed: 04/12/2024 16:06 Note Text: CC: Patient presents with: Head Congestion: Sinus congestion, cough, WOODARD, fever x4 days HPI: David Post is a 33 year old female who presents to the office with complaint of head congestion, cough, nonproductive, and fever for 4 days. Symptoms are worsening Associated symptoms includes cough. Denies wheezing, dyspnea, nausea, vomiting , and diarrhea. Treatments tried include nothing so far. with no relief of symptoms. Sick contacts: unknown. History of asthma, frequent episodes of bronchitis, chronic bronchitis, bronchiectasis or COPD: No Smoker: No Seasonal/environmental allergies: No The ROS is otherwise negative. The patient's pmh, medications, allergies, and past visits are reviewed. PHYSICAL EXAM: BP 106/66 Pulse 79 Temp 37 ?C (98.6 ?F) Resp 18 Wt 80.2 kg (176 lb 12.9 oz) LMP (LMP Unknown) SpO2 98% BMI (P) 30.56 kg/m? General appearance: alert, cooperative, pleasant, in no acute distress Head: Normocephalic Eyes: EOM's intact, conjunctiva pink and moist, no icterus, sclera white, non-injected Ears: Right ear: External ear/canal- Normal, TM - clear with good landmarks. Left ear: External ear/canal- Normal, TM - clear with good landmarks Oropharynx:moist without lesions, No erythema, exudates or tonsillar hypertrophy. Heart: Negative. RRR without obvious murmur, gallop, or rubs. No ectopy. Lungs: clear to auscultation, without rales or wheeze, good air exchange No past medical history on file. PAST SURGICAL HISTORY Procedure Laterality Date NONE ALLERGIES Patient has no known allergies. MEDICATIONS nicotine (NICODERM) 7 mg/24 hr 1 patch transdermally every 24 hours no115/iron/folic acid ( 19 ORAL) Take 1 tablet by mouth once daily. fluticasone (FLONASE ALLERGY RELIEF) 50 mcg/actuation nasal spray Use [address] [place] in each nostril once daily. therapeutic multivitamin-minerals (THERAPY M) 9 mg iron-400 mcg tablet Take 2 tablets by mouth once daily. FAMILY HISTORY Adopted: Yes Social History Tobacco Use Smoking status: Every Day Types: Cigarettes Smokeless tobacco: Never Tobacco comments: 4-5 a day Vaping Use Vaping status: Never Used Substance Use Topics Alcohol use: Yes Drug use: Yes Types: Marijuana ASSESSMENT/PLAN: 1. URI, acute - ICD9: 465.9, ICD10: J06.9 Viral at this time. No swabs. . Potential red flag symptoms discussed with the patient. Reviewed appropriate action plan to take if red flag symptoms occur. Patient agreeable to treatment plan. Shannon Newton APRN.[facility]01-31-2025 History of Present illness Narrative* Shannon Newton APRN.[facility] - 04/12/2024 3:54 PM EST CC: Patient presents with: Head Congestion: Sinus congestion, cough, WOODARD, fever x4 days HPI: David Post is a 33 year old female who presents to the office with complaint of head congestion, cough, nonproductive, and fever for 4 days. Symptoms are worsening Associated symptoms includes cough. Denies wheezing, dyspnea, nausea, vomiting , and diarrhea. Treatments tried include nothing so far. with no relief of symptoms. Sick contacts: unknown. History of asthma, frequent episodes of bronchitis, chronic bronchitis, bronchiectasis or COPD: No Smoker: No Seasonal/environmental allergies: No The ROS is otherwise negative. The patient's pmh, medications, allergies, and past visits are reviewed. PHYSICAL EXAM: BP 106/66 Pulse 79 Temp 37 C (98.6 F) Resp 18 Wt 80.2 kg (176 lb 12.9 oz) LMP (LMP Unknown) SpO2 98% BMI (P) 30.56 kg/m General appearance: alert, cooperative, pleasant, in no acute distress Head: Normocephalic Eyes: EOM's intact, conjunctiva pink and moist, no icterus, sclera white, non-injected Ears: Right ear: External ear/canal- Normal, TM - clear with good landmarks. Left ear: External ear/canal- Normal, TM - clear with good landmarks Oropharynx:moist without lesions, No erythema, exudates or tonsillar hypertrophy. Heart: Negative. RRR without obvious murmur, gallop, or rubs. No ectopy. Lungs: clear to auscultation, without rales or wheeze, good air exchange No past medical history on file. PAST SURGICAL HISTORY Procedure Laterality Date NONE ALLERGIES Patient has no known allergies. MEDICATIONS nicotine (NICODERM) 7 mg/24 hr 1 patch transdermally every 24 hours no115/iron/folic acid ( 19 ORAL) Take 1 tablet by mouth once daily. fluticasone (FLONASE ALLERGY RELIEF) 50 mcg/actuation nasal spray Use 1 [place] in each nostril once daily. therapeutic multivitamin-minerals (THERAPY M) 9 mg iron-400 mcg tablet Take 2 tablets by mouth oncedaily. FAMILY HISTORY Adopted: Yes Social History Tobacco Use Smoking status: Every Day Types: Cigarettes Smokeless tobacco: Never Tobacco comments: 4-5 a day Vaping Use Vaping status: Never Used Substance Use Topics Alcohol use: Yes Drug use: Yes Types: Marijuana ASSESSMENT/PLAN: 1. URI, acute - ICD9: 465.9, ICD10: J06.9 Viral at this time. No swabs. . Potential red flag symptoms discussed with the patient. Reviewed appropriate action plan to take if red flag symptoms occur. Patient agreeable to treatment plan. 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 acute February 22 9:34am Borderline personality disorder acute February 22 9:34am Depression acute February 23, 2024 9:34am Marijuana smoker acute February 23, 2024 9:34am Obesity affecting acute February 23, 2024 9:34am Positive GBS test acute Decembe r 2023 9:34am acute February 23, 2024 9:34am Previous section acute February 23, 2024 9:34am Supervision of high-risk acute February 22 9:34am 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, 2024 9:34am 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 acute March 22 2:54pm Borderline personality disorder acute March 22 2:54pm Depression acute March 22, 2024 2:54pm Marijuana smoker acute March 22, 2024 2:54pm Obesity affecting acute March 22, 2024 2:54pm Positive GBS test acute March 22, 2024 2:54pm acute March 22, 2024 2:54pm Previous section acute March 22, 2024 2:54pm Supervision of high-risk acute March 22 2:54pm Uterine anomaly acute March 132024 2:54pm Borderline personality disorder acute April 15 3:44pm Depression acute April 15, 2024 3:44pm Marijuana smoker acute April 15, 2024 3:44pm Obesity affecting acute April 15, 2024 3:44pm Positive GBS test acute 2024 3:44pm acute April 15, 2024 3:44pm Previous section acute April 15, 2024 3:44pm Supervision of high-risk acute April 15 3:44pm Uterine anomaly acute April 15, 2024 3:44pm 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 acute May 13, 2024 10:58am Borderline personality disorder acute May 13, 2024 10:58am Depression acute May 13 10:58am Marijuana smoker acute May 10:58am Obesity affecting acute May 13, 2024 10:58am Positive GBS test acute May 132024 10:58am acute May 13 10:58am Previous section acute May 13, 2024 10:58am Supervision of high-risk acute May 13, 2024 10:58am Uterine anomaly acute May 10:58am 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 Author Type: Nurse Practitioner Type: Progress Notes Filed: 12/26/2023 13:19 Note Text: Subjective HPI Nontoxic-appearing 5-week female chief complaint cough chest congestion headache chills low-grade fever and productive cough. States significant other diagnosed with pneumonia 3 weeks ago. She has been coughing for 3 to 4 weeks now. Has used OTC medications have been somewhat helpful. Denies any fevers today. Did initially have fevers beginning of this illness. Denies any shortness of breath hemoptysis pleuritic pain or chest pain. Past medical history prescription medications allergies reviewed. .Patient presents with: Chest Congestion: Headache, cough, (productive), body aches, chills, wheeze, low grade temp x 1 monh History reviewed. No pertinent past medical history. PAST SURGICAL HISTORY Procedure Laterality Date NONE ALLERGIES Patient has no known allergies. MEDICATIONS no115/iron/folic acid ( 19 ORAL) Take 1 tablet by mouth once daily. therapeutic multivitamin-minerals (THERAPY M) 9 mg iron-400 mcg tablet Take 2 tablets by mouth once daily. cephALEXin (KEFLEX) 500 mg capsule Take 500 mg by mouth two times a day. fluticasone (FLONASE ALLERGY RELIEF) 50 mcg/actuation nasal spray Use 1 [place] in each nostril once daily. FAMILY HISTORY Adopted: Yes Social History Tobacco Use Smoking status: Every Day Types: Cigarettes Smokeless tobacco: Never Tobacco comments: 4-5 a day Vaping Use Vaping status: Never Used Substance Use Topics Alcohol use: Yes Drug use: Yes Types: Marijuana BP 107/70 Pulse 78 Temp 37.2 ?C (99 ?F) Resp 20 Wt 81 kg (178 lb 9.2 oz) LMP (LMP Unknown) SpO2 99% No BMI (P) 30.86 kg/m? Review of Systems Constitutional: Positive for chills and malaise/fatigue. Negative for fever. HENT: Negative for congestion, ear discharge, ear pain, sinus pain and sore throat. Eyes: Negative for blurred vision, pain, discharge and redness. Respiratory: Positive for cough and sputum production. Negative for hemoptysis, shortness of breath, wheezing and stridor. Cardiovascular: Negative for chest pain. Gastrointestinal: Negative for abdominal pain, diarrhea, nausea and vomiting. Musculoskeletal: Positive for myalgias. Skin: Negative for itching and rash. Neurological: Negative for dizziness and headaches. Objective Physical Exam Constitutional: General: She is not in acute distress. Appearance: She is not diaphoretic. HENT: Head: Normocephalic. Jaw: No trismus, tenderness, swelling or pain on movement. Nose: Congestion present. Mouth/Throat: Mouth: Mucous membranes are moist. Pharynx: Oropharynx is clear. Uvula midline. No pharyngeal swelling, oropharyngeal exudate, posterior oropharyngeal erythema or uvula swelling. Eyes: Conjunctiva/sclera: Conjunctivae normal. Pupils: Pupils are equal, round, and reactive to light. Cardiovascular: Rate and Rhythm: Normal rate and regular rhythm. Heart sounds: Normal heart sounds. Pulmonary: Effort: Pulmonary effort is normal. No tachypnea, accessory muscle usage or respiratory distress. Breath sounds: No stridor. Rhonchi present. No wheezing or rales. Abdominal: General: There is no distension. Palpations: Abdomen is soft. Tenderness: There is no abdominal tenderness. There is no guarding or rebound. Musculoskeletal: Cervical back: Normal range of motion and neck supple. No edema, erythema, rigidity or tenderness. No pain with movement. Normal range of motion. Lymphadenopathy: Cervical: No cervical adenopathy. Skin: General: Skin is warm and dry. Neurological: Mental Status: She is alert and oriented to person, place, and time. ASSESSMENT/PLAN: 1. Lower resp. tract infection - ICD9: 519.8, ICD10: J22 Diagnosed with lower respiratory tract infection. Placed on azithromycin. Follow-up in 48 hours symptoms are not improving with PCP. Patient was educated on supportive therapies. Patient was instructed to immediately proceed to emergency room for any new, worsening, or symptoms lasting longer than anticipated. The patient's clinical presentation is otherwise unremarkable at this time. Based on exam and clinical finding, the patient is stable for discharge. Plan of care was discussed with patient. Patient verbalizes understanding and agrees to plan of care. This note was generated using E la Carte software. It may contain errors in wording, punctuation, or spelling. Nicolás Malik APRN.[facility] History of Present illness Narrative* Nicolás Malik APRN.DIRECTOR OF SOCIAL WORK - 12/26/2023 1:00 PM EDT Subjective HPI Nontoxic-appearing 5-week female chief complaint cough chest congestion headache chills low-grade fever and productive cough. States significant other diagnosed with pneumonia 3 weeks ago. She has been coughing for 3 to 4 weeks now. Has used OTC medications have been somewhat helpful. Denies any fevers today. Did initially have fevers beginning of this illness. Denies any shortness of breath hemoptysis pleuritic pain or chest pain. Past medical history prescription medications allergies reviewed. .Patient presents with: Chest Congestion: Headache, cough, (productive), body aches, chills, wheeze, low grade temp x 1 monh History reviewed. No pertinent past medical history. PAST SURGICAL HISTORY Procedure Laterality Date NONE ALLERGIES Patient has no known allergies. MEDICATIONS no115/iron/folic acid ( 19 ORAL) Take 1 tablet by mouth once daily. therapeutic multivitamin-minerals (THERAPY M) 9 mg iron-400 mcg tablet Take 2 tablets by mouth oncedaily. cephALEXin (KEFLEX) 500 mg capsule Take 500 mg by mouth two times a day. fluticasone (FLONASE ALLERGY RELIEF) 50 mcg/actuation nasal spray Use [address] [place] in each nostril once daily. FAMILY HISTORY Adopted: Yes Social History Tobacco Use Smoking status: Every Day Types: Cigarettes Smokeless tobacco: Never Tobacco comments: 4-5 a day Vaping Use Vaping status: Never Used Substance Use Topics Alcohol use: Yes Drug use: Yes Types: Marijuana BP 107/70 Pulse 78 Temp 37.2 C (99 F) Resp 20 Wt 81 kg (178 lb 9.2 oz) LMP (LMP Unknown) SpO2 99% No BMI (P) 30.86 kg/m Review of Systems Constitutional: Positive for chills and malaise/fatigue. Negative for fever. HENT: Negative for congestion, ear discharge, ear pain, sinus pain and sore throat. Eyes: Negative for blurred vision, pain, discharge and redness. Respiratory: Positive for cough and sputum production. Negative for hemoptysis, shortness of breath, wheezing and stridor. Cardiovascular: Negative for chest pain. Gastrointestinal: Negative for abdominal pain, diarrhea, nausea and vomiting. Musculoskeletal: Positive for myalgias. Skin: Negative for itching and rash. Neurological: Negative for dizziness and headaches. Objective Physical Exam Constitutional: General: She is not in acute distress. Appearance: She is not diaphoretic. HENT: Head: Normocephalic. Jaw: No trismus, tenderness, swelling or pain on movement. Nose: Congestion present. Mouth/Throat: Mouth: Mucous membranes are moist. Pharynx: Oropharynx is clear. Uvula midline. No pharyngeal swelling, oropharyngeal exudate, posterior oropharyngeal erythema or uvula swelling. Eyes: Conjunctiva/sclera: Conjunctivae normal. Pupils: Pupils are equal, round, and reactive to light. Cardiovascular: Rate and Rhythm: Normal rate and regular rhythm. Heart sounds: Normal heart sounds. Pulmonary: Effort: Pulmonary effort is normal. No tachypnea, accessory muscle usage or respiratory distress. Breath sounds: No stridor. Rhonchi present. No wheezing or rales. Abdominal: General: There is no distension. Palpations: Abdomen is soft. Tenderness: There is no abdominal tenderness. There is no guarding or rebound. Musculoskeletal: Cervical back: Normal range of motion and neck supple. No edema, erythema, rigidity or tenderness. No pain with movement. Normal range of motion. Lymphadenopathy: Cervical: No cervical adenopathy. Skin: General: Skin is warm and dry. Neurological: Mental Status: She is alert and oriented to person, place, and time. ASSESSMENT/PLAN: 1. Lower resp. tract infection - ICD9: 519.8, ICD10: J22 Diagnosed with lower respiratory tract infection. Placed on azithromycin. Follow-up in 48 hours symptoms are not improving with PCP. Patient was educated on supportive therapies. Patient was instructed to immediately proceed to emergency room for any new, worsening, or symptoms lasting longer than a nticipated. The patient's clinical presentation is otherwise unremarkable at this time. Based on exam and clinical finding, the patient is stable for discharge. Plan of care was discussed with patient. Patient verbalizes understanding and agrees to plan of care. This note was generated using [employer] software. It may contain errors in wording, punctuation, or spelling. Nicoáls Malik APRN.SOFIE documented in this encounterPremier Health06-25-2024 Instructions* Patient Instructions* Dwight Duran PA - 09/05/2023 10:14 AM EDT Rest, increase water intake Motrin or Tylenol as needed for fever or pain. Salt water gargles, chloraseptic spray or lozenges as needed for sore throat. Warm beverages, honey. Nasal saline spray as needed Cool mist humidifier at night A cold normally lasts 7-10 days. If your symptoms are lasting longer, develop fever, or worsening by that time instead of improving then return to clinic or follow up with PCP for re-evaluation. Tylenol (generic acetaminophen) 500 mg-2 tabs every 8 hrs. as needed for fever and aches Ibuprofen 600 mg (3-200mg tablets) every 6 hours -Mucinex (generic is fine) Guaifenesin 1200 mg twice daily to help with cough and to thin out mucus documented in this encounterPremier Health06-25-2024 NoteHNO ID: [id number] Author: DWIGHT DURAN PA Service: ? Author Type: Physician Un[employer] Type: Progress Notes Filed: 09/05/2023 10:16 Note Text: This note was created using [employer]. Subjective David Post is a 32 year old female. HPI 32-year-old female presents for sore throat, sinus congestion, cough x 3 days. Patient states on Monday she started getting sick with nasal congestion, cough, sore throat. She states she has a lot of postnasal drainage. She states that she has sinus pressure and pain. No fevers. She denies any chest pain or shortness of breath. She is still able to eat and drink, but does hurt to swallow. She states she has been taking cold and flu medication daytime and nighttime, but has only minimally been helping with her symptoms. She states that her children and are both sick with similar symptoms. Patient is breast-feeding. No other complaint. History reviewed. No pertinent past medical history. PAST SURGICAL HISTORY Procedure Laterality Date NONE ALLERGIES Patient has no active allergies. MEDICATIONS MULTIVITAMIN ORAL Take by mouth. , 1-20 mg-mcg per tablet TAKE 1 TABLET BY MOUTH EVERY DAY (Patient not taking: Reported on 06/14/2022) FAMILY HISTORY Adopted: Yes Social History Tobacco Use Smoking status: Every Day Types: Cigarettes Smokeless tobacco: Never Tobacco comments: 4-5 a day Vaping Use Vaping Use: Never used Substance Use Topics Alcohol use: Yes Drug use: Yes Types: Marijuana Review of Systems Constitutional: Negative for chills and fever. HENT: Positive for congestion, postnasal drip, sinus pressure, sinus pain and sore throat. Negative for ear pain. Respiratory: Positive for cough. Negative for shortness of breath. Cardiovascular: Negative for chest pain. Gastrointestinal: Negative for diarrhea and vomiting. Objective BP 112/64 Pulse 75 Temp 36.6 ?C (97.9 ?F) (Tympanic) Resp 18 Wt 77.1 kg (169 lb 15.6 oz) LMP 05/10/2019 SpO2 98% BMI (P) 29.38 kg/m? Physical Exam Vitals and nursing note reviewed. Constitutional: General: She is not in acute distress. Appearance: Normal appearance. She is not toxic-appearing. HENT: Right Ear: Tympanic membrane and ear canal normal. Left Ear: Tympanic membrane and ear canal normal. Nose: Congestion present. Right Sinus: Maxillary sinus tenderness present. Left Sinus: Maxillary sinus tenderness present. Mouth/Throat: Mouth: Mucous membranes are moist. Pharynx: Uvula midline. Posterior oropharyngeal erythema present. No oropharyngeal exudate. Tonsils: No tonsillar exudate or tonsillar abscesses. 2+ on the right. 2+ on the left. Eyes: Conjunctiva/sclera: Conjunctivae normal. Cardiovascular: Rate and Rhythm: Normal rate and regular rhythm. Pulmonary: Effort: Pulmonary effort is normal. Breath sounds: Normal breath sounds. No wheezing, rhonchi or rales. Neurological: Mental Status: She is alert. Assessment and Plan ASSESSMENT/PLAN: 1. URI, acute - ICD9: 465.9, ICD10: J06.9 (primary diagnosis) - Discussed viral etiology and rationale for treatment. - Symptomatic treatment with prn analgesia - Supportive care with fluids and rest -Recommend Flonase, Mucinex. -Declines COVID/flu swab. 2. Sore throat - ICD9: 462, ICD10: J02.9 - suspect viral - Group A strep molecular testing negative - Discussed supportive care treatment with fluids, rest and analgesia. - The patient may also use warm salt water gargles, throat lozenges and/or OTC throat spray as needed. - STREP A MOLECULAR (POC) Diagnosis and treatment plan were discussed and questions were answered to the patient's satisfaction. Pt acknowledged understanding of concepts and follow up plan. Specific signs and symptoms that would indicate the need for higher level of care were discussed in detail warranting prompt ER evaluation. Dwight Duran [facility]06-25-2024 History of Present illness Narrative* Dwight Duran, PA - 09/05/2023 10:07 AM EDT This note was created using NoteWriter. Subjective David Post is a 32 year old female. HPI 32-year-old female presents for sore throat, sinus congestion, cough x 3 days. Patient states on Monday she started getting sick with nasal congestion, cough, sore throat. She states she has a lot of postnasal drainage. She states that she has sinus pressure and pain. No fevers. She denies any chest pain or shortness of breath. She is still able to eat and drink, but does hurt to swallow. She states she has been taking cold and flu medication daytime and nighttime, but has only minimally been helping with her symptoms. She states that her children and are both sick with similar symptoms. Patient is breast-feeding. No other complaint. History reviewed. No pertinent past medical history. PAST SURGICAL HISTORY Procedure Laterality Date NONE ALLERGIES Patient has no active allergies. MEDICATIONS MULTIVITAMIN ORAL Take by mouth. , 1-20 mg-mcg per tablet TAKE 1 TABLET BY MOUTH EVERY DAY (Patient not taking: Reported on 06/14/2022) FAMILY HISTORY Adopted: Yes Social History Tobacco Use Smoking status: Every Day Types: Cigarettes Smokeless tobacco: Never Tobacco comments: 4-5 a day Vaping Use Vaping Use: Never used Substance Use Topics Alcohol use: Yes Drug use: Yes Types: Marijuana Review of Systems Constitutional: Negative for chills and fever. HENT: Positive for congestion, postnasal drip, sinus pressure, sinus pain and sore throat. Negativefor ear pain. Respiratory: Positive for cough. Negative for shortness of breath. Cardiovascular: Negative for chest pain. Gastrointestinal: Negative for diarrhea and vomiting. Objective BP 112/64 Pulse 75 Temp 36.6 C (97.9 F) (Tympanic) Resp 18 Wt 77.1 kg (169 lb 15.6 oz) LMP 05/10/2019 SpO2 98% BMI (P) 29.38 kg/m Physical Exam Vitals and nursing note reviewed. Constitutional: General: She is not in acute distress. Appearance: Normal appearance. She is not toxic-appearing. HENT: Right Ear: Tympanic membrane and ear canal normal. Left Ear: Tympanic membrane and ear canal normal. Nose: Congestion present. Right Sinus: Maxillary sinus tenderness present. Left Sinus: Maxillary sinus tenderness present. Mouth/Throat: Mouth: Mucous membranes are moist. Pharynx: Uvula midline. Posterior oropharyngeal erythema present. No oropharyngeal exudate. Tonsils: No tonsillar exudate or tonsillar abscesses. 2+ on the right. 2+ on the left. Eyes: Conjunctiva/sclera: Conjunctivae normal. Cardiovascular: Rate and Rhythm: Normal rate and regular rhythm. Pulmonary: Effort: Pulmonary effort is normal. Breath sounds: Normal breath sounds. No wheezing, rhonchi or rales. Neurological: Mental Status: She is alert. Assessment and Plan ASSESSMENT/PLAN: 1. URI, acute - ICD9: 465.9, ICD10: J06.9 (primary diagnosis) - Discussed viral etiology and rationale for treatment. - Symptomatic treatment with prn analgesia - Supportive care with fluids and rest -Recommend Flonase, Mucinex. -Declines COVID/flu swab. 2. Sore throat - ICD9: 462, ICD10: J02.9 - suspect viral - Group A strep molecular testing negative - Discussed supportive care treatment with fluids, rest and analgesia. - The patient may also use warm salt water gargles, throat lozenges and/or OTC throat spray as needed. - STREP A MOLECULAR (POC) Diagnosis and treatment plan were discussed and questions were answered to the patient's satisfaction. Pt acknowledged understanding of concepts and follow up plan. Specific signs and symptoms that would indicate the need for higher level of care were discussed in detail warranting prompt ER evaluation. ANA MARIA Wesley documented in this encounterPremier Health02-23-2024 Instructions* Patient Instructions* Myah Newell APRN.[facility] - 05/05/2023 11:56 AM EST ASSESSMENT/PLAN: 1. Sore throat - ICD9: 462, ICD10: J02.9 - Group A strep molecular testing negative - Discussed supportive care treatment with fluids, rest and analgesia. - STREP A MOLECULAR (POC) SORE THROAT INSTRUCTIONS SORE THROAT OVERVIEW - Sore throat is a common problem during childhood, and is usually the result of a bacterial or viral infection. Although sore throat usually resolves without complications, it sometimes requires treatment with an antibiotic. There are some less common causes of sore throat that are serious or even life-threatening. This topic will discuss the most common causes and treatments of sore throat in children, as well as the warning signs of more serious conditions. SORE THROAT CAUSES - The most likely cause of a child's sore throat depends upon the child's age, the season, and the geographic area. While viruses are the most common cause of sore throat, bacteriaare another common cause. Bacteria and viruses are spread from one person to another through hand contact. Hands get contaminated when the sick individual touches their nose or mouth and then touchesanother person directly (zvvq-bk-orin contact) or indirectly (poqj-jr-fiiehu, such as doorknob, telephone, toys). It is difficult to determine the cause of sore throat based upon symptoms alone; an examination andlaboratory test are recommended in most cases Viruses - There are many viruses that can cause pain and swelling of the throat. The most common include viruses that cause sore throat as part of an upper respiratory infection, such as the common cold. Other viruses that cause sore throat include influenza, adenovirus, and Rick-Munson virus (thecause of mononucleosis). Symptoms - Symptoms that may occur with a viral infection can include a runny nose and congestion, irritation or redness of the eyes, cough, hoarseness, soreness in the roof of the mouth, a skin rash, or diarrhea. In addition, children with viral infections may have a fever and may feel miserable. A high fever does not necessarily mean that the child has a bacterial infection. Group A streptococcus - Group A streptococcus (GAS) is the name of the bacterium that causes strep throat. Although other bacteria can cause a sore throat, GAS is the most common bacterial cause; up to 30 percent of children with a sore throat will have GAS. Strep throat usually occurs during the winter and early spring, and is most common in school-age children and their younger siblings. Symptoms - Symptoms of strep throat in children older than 3 years often develop suddenly and include fever (temperature ?100.4 F or 38 C), headache, abdominal pain, nausea, and vomiting. Other symptoms can include swollen glands in the neck, white patches of pus in the back or sides of the throat,small red spots on the roof of the mouth, and swelling of the uvula. A cough and cold are not commonly seen in children with strep throat. Strep throat is uncommon in children younger than age 2 to 3 years. However, GAS infection can occur in younger children, and may cause a runny nose and congestion that is prolonged, low-grade fever (?101 F or 38.3 C), and tender glands in the neck. Infants younger than 1 year may be fussy and havea decreased appetite and low-grade fever. SORE THROAT TREATMENT - The treatment of sore throat depends upon the cause; strep throat is treated with an antibiotic while viral pharyngitis is treated with rest, pain relievers, and other measures to reduce symptoms. Strep throat - Strep throat is usually treated with an antibiotic, such as penicillin, or an antibiotic similar to penicillin (eg, amoxicillin). Children who are allergic to penicillin will be given an alternate antibiotic. The antibiotic is usually given in pill or liquid form two or three times per day. A one-time injection is also available, and may be recommended if a child is unwilling to take an oral medication. After completing 24 hours of antibiotics, the child is no longer contagious and may return to school. Symptoms usually improve within 1 to 2 days. However, it is important for the child to finish theentire course of treatment (usually 10 days). If a child does not begin to improve or worsens within 3 days, the child should be reevaluated. Throat pain can be treated with a non-prescription pain medication, if needed. (See 'Pain medications' below.) In addition, parents should monitor their child for dehydration, which can develop if the child is not willing to drink or eat due to a sore throat. (See 'Monitor for dehydration' below.) Viral throat pain - Sore throat caused by viral infections usually last 4 to 5 days. During this time, treatments to reduce pain may be helpful but will not help to eliminate the virus. Antibiotics do not improve throat pain caused by a virus and are not recommended. A child with a viral infection is usually allowed to return to school when there has been no fever for 24 hours and the child feels well enough to pay attention. Pain medications - Throat pain can be treated with a mild pain reliever such as acetaminophen (Tylenol ) or a non-steroidal anti-inflammatory agent such as ibuprofen (Motrin ). These medications should be dosed according to weight, not age. Aspirin is not recommended for children <18 years due to the risk of a potentially serious condition known as Chema syndrome. Monitor for dehydration - Some children with a sore throat are reluctant to drink or eat due to pain. Drinking less fluid can lead to dehydration. To reduce the risk of dehydration, parents can offerwarm or cold liquids. (See 'Other interventions' below.) Signs and symptoms of mild dehydration include a slightly dry mouth, increased thirst, and decreased urine output (one wet diaper or void in six hours). Signs of moderate or severe dehydration include decreased urine output (less than one wet diaper or void in six hours), lack of tears when crying,dry mouth, and sunken eyes. A child who is moderately or severely dehydrated should be evaluated by a healthcare provider as soon as possible to determine if treatment is needed. Oral rinses- Salt-water gargles are an old stand-by for relief of throat pain. It is not clear if this treatmentis effective, but it is unlikely to be harmful. Most recipes suggest 1/4 to 1/2 teaspoon of salt per cup (8 ounces) of warm water. The water should be gargled and then spit out (not swallowed). Children younger than six to eight years are not able to gargle properly. An oral rinse composed of equal parts of diphenhydramine (Benadryl liquid) and Maalox (magnesium hydroxide, aluminum hydroxide, and simethicone) may be helpful for pain caused by a sore mouth or ulcers in the mouth. Children older than six to eight years may swish and spit (not swallow) the mixture. Sprays - Sprays containing topical anesthetics are available to treat sore throat. However, such sprays are no more effective than sucking on hard candy. In addition, a common anesthetic ingredient, benzocaine, can cause allergic reactions. We do not recommend throat sprays for children. Lozenges - A variety of medicated throat lozenges are available to relieve dryness or pain. However, it is not clear that lozenges work any better than hard candy. We do not recommend throat lozengesfor children, especially children younger than 3 to 4 years, who can choke. Sucking on hard candy may provide some relief for children older than 3 to 4 years, who are not at risk for choking. Other interventions - Other interventions include sipping warm beverages (eg, honey or lemon tea, chicken soup), cold beverages, or eating cold or frozen desserts (eg, ice cream, popsicles). These treatments are safe for children. Honey should not be given to children younger than 12 months due to the potential risk of botulism poisoning. Alternative therapies - Health food stores, vitamin outlets, and Internet Web sites offer alternative treatments for relief of sore throat pain. We do not recommend these treatments due to the risks of contamination with pesticides/herbicides, inaccurate labeling and dosing information, and a lack of studies showing that these treatments are safe and effective. SORE THROAT PREVENTION - Hand washing is an essential and highly effective way to prevent the spread of infection. Hands should be wet with water and plain soap, and rubbed together for 15 to 30 seconds. Special attention should be paid to the fingernails, between the fingers, and the wrists. Handsshould be rinsed thoroughly, and dried with a single use towel. Alcohol-based hand rubs are a good alternative for disinfecting hands if a sink is not available. Hand rubs should be spread over the entire surface of hands, fingers, and wrists until dry, and may be used several times. These rubs can be used repeatedly without skin irritation or loss of effectiveness. Hand rubs are available as a liquid or wipe in small, portable sizes that are easy to carry in a pocket or handbag. When a sink is available, visibly soiled hands should be washed with soap and water. Hands should be washed after coughing, blowing the nose or sneezing. While it is not always possible to limit contact with a person who is sick, avoiding touching the eyes, nose, or mouth after direct contact can help to prevent the spread of infection. In addition, tissues should be used to cover the mouth when sneezing or coughing. These used tissues should be disposed of promptly. Sneezing/coughing into the sleeve of one's clothing (at the inner elbow) is another means of containing sprays of saliva and secretions and has the advantage of not co ntaminating the hands. WHEN TO SEEK HELP - Parents of a child with throat pain and one or more of the following should contact their healthcare provider immediately: Difficulty swallowing or breathing Excessive drooling in an or young child Temperature ?101 F or 38.3 C Swelling of the neck Child is unable or unwilling to drink or eat Voice sounds muffled Child has a stiff neck or difficulty opening the mouth WHERE TO GET MORE INFORMATION - Your child's healthcare provider is the best source of information for questions and concerns related to your child's medical problem. This article will be updated as needed every four months on our web site ([email or web address]). Information below was obtained from Up to date Last literature review version 19.2: July 2010 This topic last updated: October 28, 2009 documented in this encounterPremier Health02-23-2024 NoteHNO ID: [id number] Author: MYAH NEWELL APRN.SOFIE Service: ? Author Type: ? Type: Progress Notes Filed: 05/05/2023 13:06 Note Text: Subjective Sore Throat Pertinent negatives include no abdominal pain, congestion, coughing, diarrhea, ear discharge, ear pain, headaches or vomiting. Pt presents to clinic on May 05, 2023 with CC sore throat Exposure to fiance who tested positive for strep throat Started having a dry and scratchy throat today Denies cough, congestion, nausea, vomiting, diarrhea, constipation, fever, headache, stomach ache Eating and drinking well Does not hurt to swallow Sleeping well No ear pain, eye drainage or pain, chills, sweats Review of Systems Constitutional: Negative for chills, diaphoresis, fever and malaise/fatigue. HENT: Positive for sore throat. Negative for congestion, ear discharge and ear pain. Eyes: Negative for pain, discharge and redness. Respiratory: Negative for cough. Cardiovascular: Negative for chest pain. Gastrointestinal: Negative for abdominal pain, constipation, diarrhea, nausea and vomiting. Genitourinary: Negative for dysuria. Neurological: Negative for dizziness and headaches. BP 130/80 Pulse 85 Temp 36.8 ?C (98.3 ?F) (Left Tympanic) Resp 16 Wt 79.7 kg (175 lb 12.8 oz) LMP 05/10/2019 SpO2 99% Yes BMI (P) 30.38 kg/m? No past medical history on file. PAST SURGICAL HISTORY Procedure Laterality Date NONE ALLERGIES Patient has no active allergies. MEDICATIONS MULTIVITAMIN ORAL Take by mouth. , 1-20 mg-mcg per tablet TAKE 1 TABLET BY MOUTH EVERY DAY (Patient not taking: Reported on 06/14/2022) FAMILY HISTORY Adopted: Yes Social History Tobacco Use Smoking status: Every Day Types: Cigarettes Smokeless tobacco: Never Tobacco comments: 4-5 a day Vaping Use Vaping Use: Never used Substance Use Topics Alcohol use: Yes Drug use: Yes Types: Marijuana Objective Physical Exam Constitutional: General: She is not in acute distress. Appearance: Normal appearance. She is not ill-appearing, toxic-appearing or diaphoretic. HENT: Head: Normocephalic. Right Ear: Tympanic membrane, ear canal and external ear normal. There is no impacted cerumen. Left Ear: Tympanic membrane, ear canal and external ear normal. There is no impacted cerumen. Nose: Nose normal. No congestion or rhinorrhea. Mouth/Throat: Mouth: Mucous membranes are moist. Pharynx: Posterior oropharyngeal erythema present. No oropharyngeal exudate. Eyes: General: Right eye: No discharge. Left eye: No discharge. Conjunctiva/sclera: Conjunctivae normal. Cardiovascular: Rate and Rhythm: Normal rate and regular rhythm. Heart sounds: Normal heart sounds. No murmur heard. No gallop. Pulmonary: Effort: Pulmonary effort is normal. No respiratory distress. Breath sounds: Normal breath sounds. No stridor. No wheezing, rhonchi or rales. Chest: Chest wall: No tenderness. Neurological: Mental Status: She is alert and oriented to person, place, and time. Psychiatric: Mood and Affect: Mood normal. Behavior: Behavior normal. Thought Content: Thought content normal. Judgment: Judgment normal. ASSESSMENT/PLAN: 1. Sore throat - ICD9: 462, ICD10: J02.9 - Group A strep molecular testing negative - Discussed supportive care treatment with fluids, rest and analgesia. - STREP A MOLECULAR (POC) ALEXY Masters TEACHING PROVIDER (Physician/PA/MEAT CUTTER) NOTE OF PERSONAL INVOLVEMENT IN CARE: I have personally seen and examined the patient and performed the medical decision-making components. I have reviewed the Advanced Practice Registered Nurse (MEAT CUTTER) Student's documentation and verified the findings in the note as written. Any additions or changes are noted in bold/italics. Signature: Myah Newell Date: 05/05/2023 Time: 1:05 [facility]02-23-2024 History of Present illness Narrative* Martha Garcia - 05/05/2023 11:52 AM EST Subjective Sore Throat Pertinent negatives include no abdominal pain, congestion, coughing, diarrhea, ear discharge, ear pain, headaches or vomiting. Pt presents to clinic on May 05, 2023 with CC sore throat Exposure to fiance who tested positive for strep throat Started having a dry and scratchy throat today Denies cough, congestion, nausea, vomiting, diarrhea, constipation, fever, headache, stomach ache Eating and drinking well Does not hurt to swallow Sleeping well No ear pain, eye drainage or pain, chills, sweats Review of Systems Constitutional: Negative for chills, diaphoresis, fever and malaise/fatigue. HENT: Positive for sore throat. Negative for congestion, ear discharge and ear pain. Eyes: Negative for pain, discharge and redness. Respiratory: Negative for cough. Cardiovascular: Negative for chest pain. Gastrointestinal: Negative for abdominal pain, constipation, diarrhea, nausea and vomiting. Genitourinary: Negative for dysuria. Neurological: Negative for dizziness and headaches. BP 130/80 Pulse 85 Temp 36.8 C (98.3 F) (Left Tympanic) Resp 16 Wt 79.7 kg (175 lb 12.8 oz) LMP 05/10/2019 SpO2 99% Yes BMI (P) 30.38 kg/m No past medical history on file. PAST SURGICAL HISTORY Procedure Laterality Date NONE ALLERGIES Patient has no active allergies. MEDICATIONS MULTIVITAMIN ORAL Take by mouth. JUNE, 1-20 mg-mcg per tablet TAKE 1 TABLET BY MOUTH EVERY DAY (Patient not taking: Reported on 06/14/2022) FAMILY HISTORY Adopted: Yes Social History Tobacco Use Smoking status: Every Day Types: Cigarettes Smokeless tobacco: Never Tobacco comments: 4-5 a day Vaping Use Vaping Use: Never used Substance Use Topics Alcohol use: Yes Drug use: Yes Types: Marijuana Objective Physical Exam Constitutional: General: She is not in acute distress. Appearance: Normal appearance. She is not ill-appearing, toxic-appearing or diaphoretic. HENT: Head: Normocephalic. Right Ear: Tympanic membrane, ear canal and external ear normal. There is no impacted cerumen. Left Ear: Tympanic membrane, ear canal and external ear normal. There is no impacted cerumen. Nose: Nose normal. No congestion or rhinorrhea. Mouth/Throat: Mouth: Mucous membranes are moist. Pharynx: Posterior oropharyngeal erythema present. No oropharyngeal exudate. Eyes: General: Right eye: No discharge. Left eye: No discharge. Conjunctiva/sclera: Conjunctivae normal. Cardiovascular: Rate and Rhythm: Normal rate and regular rhythm. Heart sounds: Normal heart sounds. No murmur heard. No gallop. Pulmonary: Effort: Pulmonary effort is normal. No respiratory distress. Breath sounds: Normal breath sounds. No stridor. No wheezing, rhonchi or rales. Chest: Chest wall: No tenderness. Neurological: Mental Status: She is alert and oriented to person, place, and time. Psychiatric: Mood and Affect: Mood normal. Behavior: Behavior normal. Thought Content: Thought content normal. Judgment: Judgment normal. ASSESSMENT/PLAN: 1. Sore throat - ICD9: 462, ICD10: J02.9 - Group A strep molecular testing negative - Discussed supportive care treatment with fluids, rest and analgesia. - STREP A MOLECULAR (POC) ALEXY Masters TEACHING PROVIDER (Physician/PA/MEAT CUTTER) NOTE OF PERSONAL INVOLVEMENT IN CARE: I have personally seen and examined the patient and performed the medical decision-making components. I have reviewed the Advanced Practice Registered Nurse (MEAT CUTTER) Student's documentation and verified the findings in the note as written. Any additions or changes are noted in bold/italics. Signature: Myah Newell Date: 05/05/2023 Time: 1:05 PM documented in this encounterPremier Health02-18-2024 Progress note Author Meena Luciano [facility] April 30, 2023 11:12am Note Date/Time April 29, 2023 5:16am [facility] Medical Records Department [address] [facility] [address] [facility] [place] [address] Progress Note - OBGYN 04/29/23 0515 MR#: [id number] Acct: [id number] Name: DAVID POST Rep #:[id number] : 1990 32 From: Meena jenkins MD PCP: Care Physician,No Primary Status :ADM IN Location: [place] [id number] Subjective Subjective Patient doing well without complaints. Tolerating PO. Ambulating and voiding without difficulty. infant feeding well. Denies chest pain, shortness of breath,calf pain/swelling, fevers, chills, lightheadedness. Objective Data Objective Data Vital Signs: Vital Signs Temp Pulse Resp BP Pulse Ox O2 Del Method 98.6 F 73 20 H 122/64 H 98 Room Air 04/28/23 19:15 04/29/23 03:56 04/29/23 03:56 04/29/23 03:56 04/29/23 03:56 04/29/23 03:56 Oxygen Delivery Method Room Air Weight: 196 lb 13.965 oz Body Mass Index (BMI) 34.9 Intake & Output: Intake and Output for Last 24 Hours 04/27/23 04/28/23 04/29/23 23:59 23:59 23:59 Intake Total 2615 / 2615 Output Total 1700 / 1700 Balance 915 / 915 Lab / Micro Data 04/28/23 02:40 04/28/23 02:40 Labs: Laboratory Results - last 24 hr 04/28/23 02:40: U Random Total Protein 27.3 H, Urine Creatinine 144.00, Protein/Creatinin Ratio 190 ROS Constitutional Constitutional: Reports systems reviewed and no addt'l complaints, except as documented Cardiovascular Cardiovascular: Reports systems reviewed and no addt'l complaints, except as documented Respiratory/Chest Respiratory/Chest: Reports systems reviewed and no addt'l complaints, except as documented Gastrointestinal Gastrointestinal: Reports systems reviewed and no addt'l complaints, except as documented Physical Exam Const alert, oriented x3 and no apparent distress HEENT Head and Scalp: atraumatic Resp normal respiratory effort GI soft to palpation and non-tender Inspection: incision intact, healing well and drainage (none) Bimanual Exam - Vag & Uterus: uterus non-tender Uterus Palpation: uterus fundus firm (below Umbilicus) Assessment & Plan (1) delivery delivered: COMMENT: LTCS boy Jason NRFHTS covid 38 7 cm narrow pelvis from above (2) Gestational hypertension: (3) COVID: (4) Marijuana smoker: COMMENT: occasional for anxiety, counseling provided. stopped around 35 weeks. (5) Asthma: COMMENT: intermittent use of inhaler plan 36 week growth scan (6) Depression: COMMENT: buspar restarted for anxiety, was on lexapro in the past also, saw counseling center. feeling improved symptoms with counseling. PLAN: Plan s/p LTCS PPD # 1 1. routine post care 2. breast feeding- support given 3. rh positive 4. rubella immune 04/30/23 1112 <Electronically signed by Meena Luciano MD> Cosigner Signature (if applicable): CC: ~ Signed [facility] Work Phone: 1(326) 654-935502-18-2024 Progress note Author Meena Luciano [facility] April 30, 2023 8:51am Note Date/Time April 30, 2023 8:51am [facility] Medical Records Department [address] [place] [address] Progress Note - OBGYN 04/30/23 0851 MR#: [id number] Acct: [id number] Name: DAVID POST Rep #:[id number] : 1990 32 From: Meena jenkins MD PCP: Care Physician,No Primary Status :ADM IN Location: [place] [address] Subjective Subjective Patient doing well without complaints. Tolerating PO. Ambulating and voiding without difficulty. feeding well. Denies chest pain, shortness of breath,calf pain/swelling, fevers, chills, lightheadedness. Objective Data Objective Data Vital Signs: Vital Signs Temp Pulse Resp BP Pulse Ox O2 Del Method 98.1 F 72 14 128/77 H 98 Room Air 04/30/23 08:30 04/30/23 08:30 04/30/23 08:30 04/30/23 08:30 04/30/23 08:30 04/30/23 08:30 Oxygen Delivery Method Room Air Weight: 196 lb 13.965 oz Body Mass Index (BMI) 34.9 Intake & Output: Intake and Output for Last 24 Hours 04/28/23 04/29/23 04/30/23 23:59 23:59 23:59 Intake Total 2615 / 2615 796.67 / 796.67 Output Total 1700 / 1700 1250 / 1250 Balance 915 / 915 -453.33 / -453.33 Lab / Micro Data 04/29/23 06:10 04/28/23 02:40 ROS Constitutional Constitutional: Reports systems reviewed and no addt'l complaints, except as documented Cardiovascular Cardiovascular: Reports systems reviewed and no addt'l complaints, except as documented Respiratory/Chest Respiratory/Chest: Reports systems reviewed and no addt'l complaints, except as documented Gastrointestinal Gastrointestinal: Reports systems reviewed and no addt'l complaints, except as documented Physical Exam Const alert, oriented x3 and no apparent distress HEENT Head and Scalp: atraumatic Resp normal respiratory effort GI soft to palpation and non-tender Inspection: incision intact, healing well and drainage (none) Bimanual Exam - Vag & Uterus: uterus non-tender Uterus Palpation: uterus fundus firm (below Umbilicus) Assessment & Plan (1) delivery delivered: COMMENT: LTCS rhoda Gomez NRFHTS covid 38 7 cm narrow pelvis from above (2) Gestational hypertension: (3) COVID: (4) Marijuana smoker: COMMENT: occasional for anxiety, counseling provided. stopped around 35 weeks. (5) Asthma: COMMENT: intermittent use of inhaler plan 36 week growth scan (6) Depression: COMMENT: buspar restarted for anxiety, was on lexapro in the past also, saw counseling center. feeling improved symptoms with counseling. PLAN: Plan s/p LTCS PPD # 2 1. routine post care 2. breast feeding- support given 3. rh positive 4. rubella immune 04/30/23 0851 <Electronically signed by Meena Luciano MD> Cosigner Signature (if applicable): CC: ~ Signed [facility] Work Phone: 1(645) 350-895802-17-2024 Procedure [facility] [place] 04-28-2023 Discharge summary Author Meena Luciano [facility] April 28, 2023 6:35pm Note Date/Time April 28, 2023 6:32pm [facility] Medical Records Department [address] [place] [address] Instructions for Home/Discharge Instructions 04/28/23 1832 MR#: [id number] Acct: [id number] Name: DAVID POST Rep #:[id number] : 1990 32 From: Meena jenkins MD PCP: Care Physician,No Primary Status :ADM IN Discharge Instructions Diet Discharge Diet: No restrictions Activity Discharge Activity: May Not Drive (for 2 weeks or while taking narcotic pain medications.), May Shower and May Take a Tub Bath (in 7 days) May shower in (days): 0 May resume sexual activity in: 4-6 weeks Weight Bearing Status: Full weight bearing Lifting Restrictions: 20 pounds Dressing / Incision Call your doctor if your incision/area has: Continuous Slow Oozing, Sudden Increased Bleeding, Increased Pain/ Swelling, Increased Redness and Foul Smelling Discharge Call your doctor if you observe: Fever of 101 or Higher and Using more than 1 pad per hour (for 2 hours) Suture Line Care: Avoid Pulling/Pushing and Avoid Pinching/Bending Cleanse incision/area with: Soap & Water and Keep Dressing Clean & Dry Follow Up Care Please Follow Up With: Meena Luciano MD When: Call [phone] to make an appointment for an incision check in 1-2 weeks. Test Results: Test results from this visit will be discussed in further detail at your follow- up appointment, if applicable. Discharge Plan Admission Admit Date/Time: 04/28/23 03:03 Attending Provider: Meena Luciano Primary Care Provider: Care Physician,Mahsa Primary Discharge Orders/Prescriptions Prescriptions: New oxycodone-acetaminophen [Percocet] 5-325 mg tablet 1 tab PO Q6H PRN (Reason: pain) 7 Days Qty: 20 0RF naproxen [naproxen] 500 mg tablet 500 mg PO BID PRN PRN (Reason: Pain) Qty: 30 1RF No Action PNV-DHA 27 mg iron-1 mg -300 mg capsule PO buspirone 10 mg tablet 10 mg PO BID Qty: 30 12RF ferrous fumarate 325 mg (106 mg iron) tablet 325 mg PO DAILY Referrals / Follow Up: Care Physician,No Primary [Primary Care Provider] - Disposition Disposition (needs filled in before D/C Order can be placed): Home, Self Care 04/28/23 1835<Electronically signed by Meena Luciano MD>Meena Luciano MD CC: No Primary Care Physician ~ Signed [facility] Work Phone: [phone] 168-223202-16-2024 Progress note Author Meena Luciano [facility] April 28, 2023 5:33pm Note Date/Time April 28, 2023 5:33pm [facility] Medical Records Department [address] [place] [address] Progress Note 04/28/23 1729 MR#: [id number] Acct: [id number] Name: DAVID POST Rep #:[id number] : 1990 32 From: Meena jenkins MD PCP: Care Physician,No Primary Status :ADM IN [facility] Note patient evaluted for intermittent variables and late decels for 45 minutes. no labor progression since 10 am ove r7 hours. 7 cm now feeling more like 6 cm withcervical swelling, amnioinfusion done, position changes, OP presentation and minimal variability. abnormal labor progress with non reassuring FHT, decision for primary section. discussed with patient and will proceed with delivery. 04/28/23 1733 <Electronically signed by Meena Luciano MD> Meena Luciano MD Cosigner Signature (if applicable): CC: ~ Signed [facility] Work Phone: [phone] 447-852702-16-2024 History and physical note Author Meenaalee Luciano [facility] April 28, 2023 5:05am Note Date/Time April 28, 2023 5:05am [facility] Medical Records Department [address] [place] [address] H&P Exam - PLASTERER SPOT 04/28/23 0501 MR#: [id number] Acct: [id number] Name: DAVID POST Rep #:[id number] : 1990 32 From: Meena jenkins MD PCP: Care Physician,No Primary Status :ADM IN [facility] HPI - General General Date of Admission: 04/28/23 HPI Narrative DAVID POST, is a 32 F who presents Maternal Data Information MANUEL Calculator Estimated Delivery Date Method Current WG Current Estimate 05/08/23 Ultrasound #1 38w 4d Other Estimates 04/21/23 LMP (Uncertain) 41w 0d PFSH PFSH Medical History (Updated 04/28/23 @ 05:[address] Meena Luciano MD) Anxiety History of anemia History of asthma History of back pain history of knee pain Trauma Uterine anomaly Home Medications multivitamin no.47-iron fum 27 mg-folate no.1 1 mg-dha 300 mg capsule (PNV- DHA)cap PO 09/02/22 [History Last Taken 04/27/23] buspirone 10 mg tablet 10 mg PO BID #30 tabs 11/11/22 [Rx Last Taken Unknown] ferrous fumarate 325 mg (106 mg iron) tablet 325 mg PO DAILY 04/03/23 [History Last Taken Unknown] Allergy/AdvReac Type Severity Reaction Status Date / Time No Known Allergies Allergy Verified 04/28/23 02:25 Social History adopted: Yes household members: significant other and children number of children: 1 current occupational status: employed current occupation: [employer] current occupational exposures/hazards: Yes (dust dirt- has N95 to wear) pets and animals: Yes (not managing litter box) pets and animals: cat(s) history of recent travel: Yes ([place]) out of state: Yes out of country: No sexually active: Yes Smoking Status: Former smoker Tobacco: How many years used: 8 quit status: quit date established counseling given: counseling >3 minutes alcohol intake: never substance use type: marijuana well-balanced diet: rarely or never caffeine: Yes Type: tea Number of servings: 1 eating out: 1-3 times/week during the past year weight has: decreased > 10 lbs what type of physical activity do you participate in: none yesenia/taoist: None seatbelt use: always do you feel safe at home: Yes additional social history: 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 History 1 Elective abortions Hx Para 0 Spontaneous abortions Hx # Term Pregnancies Ectopic pregnancies Hx # Pregnancies Multiple births # of living children Visit Details Expected Delivery Route/Plan Labor Preferences- CB/BF classes: [] labor support person: [] labor intervention preferences: [] pain management options preferred: open to epidural would like to do unmedicated cut cord/dad catch: [] : [] PP control planned: [] discussed possible routes of delivery and associated risks: [] special requests: [] Plans Covid status: [] Flu vaccine: [] Tdap vaccine: [] Rhogam: [] LARC form signed: completed. Problem list reviewed and updated with the most current plan of care details and appropriate orders placed. Relevant counseling for the gestational age provided. Continue routine care and follow up unless otherwise noted in visit notes/problem list details OB Flowsheet Initial Weight: Not Recorded Date -?-?-?-?-?-?-?-?-?-?-?-?- EGA Weight BP Urine Prot -?-?-?-?-?-?-?-?-?-?-?-?- Glucose FHR FuHt Pres Dilation -?-?-?-?-?-?-?-?-?-?-?-?- Effaced St Visit Note 09/08/22 -?-?-?-?-?-?-?-?-?-?-?-?- 5w 3d 156 lb 4 oz 112/65 -?-?-?-?-?-?-?-?-?-?-?-?- -?-?-?-?-?-?-?-?-?-?-?-?- SM_ GS measuring 10 mm with yolk sac seen unsure if pole present, recommend repeat US In 1 week 10/14/22 -?-?-?-?-?-?-?-?-?-?-?-?- 10w 4d 150 lb 118/67 118/67 -?-?-?-?-?-?-?-?-?-?-?-?- 160 -?-?-?-?-?-?-?-?-?-?-?-?- SM- measuring 10 weeks viable IUP seen NIPT drawn today nob labs drawn gcc collected 11/11/22 -?-?-?-?-?-?-?-?-?-?-?-?- 14w 4d 149 lb 2 oz 113/75 -?-?-?-?-?-?-?-?-?-?-?-?- 150 -?-?-?-?-?-?-?-?-?-?-?-?- KW-No vb/crampin g. AFP declined. US ordered. not feeling well over last week urine sent KW-No vb/cramping. AFP decli patrick. US ordered. not feeling well over last week urine ordered. requested increase in Buspar. 12/09/22 -?-?-?-?-?-?-?-?-?-?-?-?- 18w 4d 154 lb 101/57 Negative -?-?-?-?-?-?-?-?-?-?-?-?- Negative 150 -?-?-?-?-?-?-?-?-?-?-?-?- KW- no vb/lof/ct x. good fm. feeling stress with 8yr old. recommend taking Buspar prior to leaving work to see if it helps with mood at home in evening. would like US with MFM. will place order 01/06/23 -?-?-?-?-?-?-?-?-?-?-?-?- 22w 4d 167 lb 4 oz 126/62 Nega tive -?-?-?-?-?-?-?-?-?-?-?-?- Negative 144 -?-?-?-?-?-?-?-?-?-?-?-?- JV- pt complains of intermittent nipple infections secondary to an old nipple piercing. There is no purulent material or redness present. sending pt home with redtop to collect sample when and if it happens again and starting broad spectrum abx in meantime. 02/17/23 -?-?-?-?-?-?-?-?-?-?-?-?- 28w 4d 175 lb 101/66 -?-?-?-?-?-?-?-?-?-?-?-?- 140 -?-?-?-?-?-?-?-?-?-?-?-?- LC-no vb/ctx/lof . good fm. 28 labs pending. did not start abx, no further nipple discharge. 02/27/23 -?-?-?-?-?-?-?-?-?-?-?-?- 30w 0d 177 lb 4 oz 113/65 Nega tive -?-?-?-?-?-?-?-?-?-?-?-?- Negative 140 -?-?-?-?-?-?-?-?-?-?-?-?- JV- no lof, vagi nal bleeding, or dec fm. getting some calf pain at night roberto horse 04/03/23 -?-?-?-?-?-?-?-?-?-?-?-?- 35w 0d 191 lb 114/74 -?-?-?-?-?-?-?-?-?-?-?-?- 135 33.5 -?-?-?-?-?-?-?-?-?-?-?-?- LC- no vb/ctx/lo f. good fm. obtaining growth this week for asthma hx. 04/21/23 -?-?-?--?-?-?-?-?-?-?-?-?- 37w 4d 191 lb 122/76 Trace -?-?-?-?-?-?-?-?-?-?-?-?- Negative 130 36 2 -?-?-?-?-?-?-?-?-?-?-?-?- 60 -3 KW- no vb/ lof/ctx. good fm. plan reviewed KW- no vb/lof/ctx. good fm. plan reviewed. Had growth US last week. measuring 37%. GBS today Vital Signs Vital Signs Vital Signs: 04/28/23 02:08 04/28/23 02:08 04/28/23 02:12 Temperature Temperature Source Oral Pulse Rate 65 Blood Pressure 143/87 H BP Systolic 143 BP Diastolic 87 Pulse Ox 04/28/23 02:12 04/28/23 02:12 04/28/23 02:25 Temperature 98.4 F Temperature Source Pulse Rate Blood Pressure 159/84 H BP Systolic 159 BP Diastolic 84 Pulse Ox 99 04/28/23 02:25 04/28/23 02:43 04/28/23 02:43 Temperature Temperature Source Pulse Rate 65 69 Blood Pressure 135/84 H BP Systolic 135 BP Diastolic 84 Pulse Ox 04/28/23 02:56 04/28/23 02:56 04/28/23 04:03 Temperature Temperature Source Pulse Rate 66 67 Blood Pressure 144/90 H BP Systolic 144 BP Diastolic 90 Pulse Ox 04/28/23 04:03 04/28/23 04:04 04/28/23 04:05 Temperature Temperature Source Oral Pulse Rate Blood Pressure 143/88 H BP Systolic 143 BP Diastolic 88 Pulse Ox 100 04/28/23 04:05 04/28/23 04:04 04/28/23 04:04 Temperature 98.2 F Temperature Source Pulse Rate 65 Blood Pressure BP Systolic BP Diastolic Pulse Ox 99 Weight Weight: 196 lb 13.965 oz Body Mass Index (BMI) 34.9 Labs Labs Labs: Blood Type O POSITIVE Antibody Screen NEGATIVE Hct 37.4 % (37-47) Hgb 13.0 g/dL (12.0-15.0) Obstetrics Ultrasound Syphilis Total Ab Non-reactive Rubella IgG Antibody Reactive (Nonreactive) Hep Bs Antigen Non-Reactive (Nonreactive) Hepatitis C Antibody Non-Reactive (Nonreactive) Chlamydia DNA (ELIZABETH) Negative (Negative) N.gonorrhoeae DNA (ELIZABETH) Negative (Negative) HIV 1&2 Antibody Non-Reactive (Nonreactive) Glucose 1 Hr 50 gm 106 mg/dL (70-140) Laboratory Tests 04/28/23 04/28/23 Range/Units 02:40 02:23 WBC 11.5 H (4.4-11.0) K/mm3 RBC 4.09 L (4.2-5.4) M/mm3 Hgb 13.0 (12.0-15.0) g/dL Hct 37.4 (37-47) % MCV 91.4 (81-99) fL MCH 31.8 (27.0-32.0) pg MCHC 34.8 (32-36) g/dL RDW Std Deviation 43.7 (35.1-43.9) fl RDW Coeff of [place] 13.1 (11.6-14.6) % Plt Count 196 (150-450) K/mm3 MPV 11.4 (6.2-12.0) fl Creatinine 0.73 (0.55-1.02) mg/dL Estim Creat Clear Calc 117.30 ml/min Est GFR (MDRD) Af Amer 118 (>60) mL/min Est GFR (MDRD) Non-Af 98 (>60) mL/min Uric Acid 4.0 (2.6-6.0) mg/dL AST 18 (15-37) U/L ALT 30 (13-56) U/L Vag Amniotic Fld Detect POSITIVE H (Negative) Urine Opiates Screen NEGATIVE (< 300 ng/mL) Urine Methadone Screen NEGATIVE (< 300 ng/mL) Ur Barbiturates Screen NEGATIVE (< 200 ng/mL) Ur Phencyclidine Scrn NEGATIVE (< 25 ng/mL) Ur Amphetamines Screen NEGATIVE (<1000 ng/mL) MDMA (Ecstasy) Screen NEGATIVE (< 500 ng/mL) U Benzodiazepines Scrn NEGATIVE (< 200 ng/mL) Urine Cocaine Screen NEGATIVE (< 300 ng/mL) U Cannabinoids Screen NEGATIVE (< 50 ng/mL) Ur Drug Screen Comment Syphilis Total Ab Non-reactive Blood Type O POSITIVE Antibody Screen NEGATIVE Assessment & Plan (1) COVID: (2) Depression: COMMENT: buswilfredo restarted for anxiety, was on lexapro in the past also, saw counseling center. feeling improved symptoms with counseling. (3) Asthma: COMMENT: intermittent use of inhaler plan 36 week growth scan (4) Supervision of high-risk : COMMENT: PRR, , MANUEL 04/21/23 Boyfriend-Mustapha(Bill 8yo-lives with them division officer weapons department, [id number] with mother) (5) : QUALIFIERS: Weeks of gestation: 37 weeks Qualified Code(s): Z3A.37 - 37 weeks gestation of COMMENT: GBS neg, NIPT low risk, discussed carrier testing. nl anatomy (6) SROM (spontaneous rupture of membranes): (7) Active labor at term: (8) Gestational hypertension: PLAN: Plan Patient presents IAL, plan expectant management for , pitocin PRN Pain management: open to epidural. GBS neg. Management of any complications: covid pos- precautions planned gestational htn, monitor bps, labs WNL I have reviewed the [facility] and made any clinically relevant updates. 04/28/23 0506 <Electronically signed by Meena Luciano MD> Cosigner Signature (if applicable): CC: Dr. Meena Luciano MD; No Primary Care Physician~ Signed [facility] Work Phone: 1(313) 333-569804-04-2023 Instructions* Patient Instructions* Sherri Seaman APRN.DIRECTOR OF SOCIAL WORK - 06/14/2022 1:29 PM EDT Rest, ice, [...] : AMAN HELMS MD documented in this encounterPremier Health04-04-2023 History of Present illness Narrative* Traci Ayala RT(R) - 06/14/2022 1:20 PM EDT Radiology Service Progress Note PATIENT NAME: David Post DATE OF SERVICE: June 14, 2022 TIME: 1:06 PM PATIENT IDENTITY VERIFICATION COMPLETED USING TWO (2) IDENTIFIERS: Name and Date of confirmedby patient verbally. FALL SCREENING: Has the patient had 2 falls in the last year or 1 fall with injury or currently using an Ambulatory Assistive Device (Walker, Cane, Wheelchair, Crutches, etc.)? No PATIENT GENDER DATA: Female. status: : No status: NO. PATIENT RELEVANT IMPLANT DATA REVIEWED: Yes RADIOLOGY DEPARTMENT: General X-ray: Exam(s) Completed: Upper Extremity X- Ray(s): Hand, right PERIPHERAL IV DATA: Not applicable SIGNED BY: RT Bo(R) June 14, 2022 1:06 PM documented in this encounterPremier Health04-04-2023 History of Present illness Narrative* Sherri Seaman APRN.DIRECTOR OF SOCIAL WORK - 06/14/2022 12:58 PM EDT Subjective The history is provided by the patient. No language arts teacher was used. HPI David Post is a 31 year old female who presents today for CC of right hand/ring finger pain after shutting hand/finger in car door. This happened about an hours ago. There are no cuts, mild swelling, no bruising. She has not used any treatment. No previous injury. BP 110/68 Pulse 78 Temp 36.2 C (97.2 F) Resp 16 Wt 75.3 kg (166 lb) LMP 05/10/2019 AlF980% BMI (P) 28.69 kg/m Social History Tobacco Use Smoking status: Every Day Types: Cigarettes Smokeless tobacco: Never Tobacco comments: 4-5 a day Vaping Use Vaping Use: Never used Substance Use Topics Alcohol use: Yes Drug use: Yes Types: Marijuana No past medical history on file. I have confirmed and edited as necessary, the [facility] Review of Systems Constitutional: Negative for [...] for higher level of care were discussed indetail warranting prompt ER evaluation. Sherri Seaman APRN.SOFIE documented in this encounterPremier HealthEvaluation note* Diagnosis Injury of right hand, initial encounter- Primary Pain of finger of right hand Pain in limb [facility] Diagnosis Onset Date Resolution Status Asthma acute Depression acute Marijuana smoker acute acute Supervision of high-risk acute Asthma acute Depression acute Marijuana smoker acute acute Supervision of high-risk acute [facility] Work Phone: Evaluation note* Diagnosis Onset Date Resolution Status Asthma acute Depression acute Marijuana smoker acute acute Supervision of high-risk acute Asthma acute Depression acute Marijuana smoker acute acute Supervision of high-risk acute Asthma acute Depression acute Marijuana smoker acute acute Supervision of high-risk acute [facility] Work Phone: Evaluation note* Diagnosis Onset Date Resolution Status Asthma acute Depression acute Marijuana smoker acute acute Supervision of high-risk acute Abscess of nipple acute Asthma acute Depression acute Marijuana smoker acute acute Supervision of high-risk acute Frequency of urination resol liat Abscess of nipple acute Asthma acute Depression acute Marijuana smoker acute acute Supervision of high-risk acute [facility] Work Phone: evaluation note* Diagnosis Onset Date Resolution Status Abscess of nipple acute Asthma acute Depression acute Marijuana smoker acute acute Supervision of high-risk acute Frequency of urination resol liat Abscess of nipple acute Asthma acute Depression acute Marijuana smoker acute acute Supervision of high-risk acute Abscess of nipple acute Asthma acute Depression acute Marijuana smoker acute acute Supervision of high-risk acute Asthma acute Depression acute Marijuana smoker acute acute Supervision of high-risk acute [facility] Work Phone: Evaluation note* Diagnosis Onset Date Resolution Status Abscess of nipple acute Asthma acute Depression acute Marijuana smoker acute acute Supervision of high-risk acute Frequency of urination resol liat Abscess of nipple acute Asthma acute Depression acute Marijuana smoker acute acute Supervision of high-risk acute Abscess of nipple acute Asthma acute Depression acute Marijuana smoker acute acute Supervision of high-risk acute Asthma acute Depression acute Marijuana smoker acute acute Supervision of high-risk acute Abscess of nipple acute Asthma acute Depression acute Marijuana smoker acute acute Supervision of high-risk acute 37 weeks gestation of acute Congestion of nasal sinus ac orutsararmiut Cough acute COVID acute Fatigue acute Fever acute [facility] Work Phone: Evaluation note* Diagnosis Onset Date Resolution Status Asthma acute Depression acute Marijuana smoker acute Abscess of nipple resolved Frequency of urination resol liat resolved Supervision of high-risk resolved Asthma acute Depression acute Marijuana smoker acute Abscess of nipple resolved resolved Supervision of high-risk resolved Asthma acute Depression acute Marijuana smoker acute Abscess of nipple resolved resolved Supervision of high-risk resolved Asthma acute Depression acute Marijuana smoker acute resolved Supervision of high-risk resolved Asthma acute Depression acute Marijuana smoker acute Abscess of nipple resolved resolved Supervision of high-risk resolved COVID acute 37 weeks gestation of resolved Congestion of nasal sinus re solved Cough resolved Fatigue resolved Fever resolved Asthma acute delivery delivered acute COVID acute Depression acute Gestational hypertension acu te Marijuana smoker acute 37 weeks gestation of resolved Active labor at term resolve d Non-reassuring heart rate with late deceleration resolved resolved SROM (spontaneous rupture of membranes) resolved Supervision of high-risk resolved [facility] Work Phone: Evaluation note* Diagnosis Sore throat- Primary Acute pharyngitis documented in this encounter [facility]* Diagnosis Onset Date Resolution Status Asthma acute Depression acute Marijuana smoker acute Abscess of nipple resolved resolved Supervision of high-risk resolved Asthma acute Depression acute Marijuana smoker acute Abscess of nipple resolved resolved Supervision of high-risk resolved Asthma acute Depression acute Marijuana smoker acute resolved Supervision of high-risk resolved Asthma acute Depression acute Marijuana smoker acute Abscess of nipple resolved resolved Supervision of high-risk resolved COVID acute 37 weeks gestation of resolved Congestion of nasal sinus re solved Cough resolved Fatigue resolved Fever resolved Asthma acute delivery delivered acute COVID acute Depression acute Gestational hypertension acu te Marijuana smoker acute 37 weeks gestation of resolved Active labor at term resolve d Non-reassuring heart r ate with late deceleration resolved resolved SROM (spontaneous rupture of membranes) resolved Supervision of high-risk resolved delivery delivered acute Routine Follow-Up noneactive [facility] Work Phone: Evaluation note* Diagnosis URI, acute- Primary Acute upper respiratory infections of unspecified site Sore throat Acute pharyngitis documented in this encounter [facility]* Diagnosis Injury of right hand, initial encounter Pain of finger of right hand Pain in limb documented in this encounter [facility]* Diagnosis Lower resp. tract infection- Primary Other diseases of respiratory system, not elsewhere classified documented in this encounter [facility]* Diagnosis URI, acute- Primary Acute upper respiratory infections of unspecified site documented in this encounter [facility]* Diagnosis Acute otitis media, right- Primary Unspecified otitis media documented in this encounter [facility] note Author Anna Marin [facility] Note Date/Time August 08, 2024 9:39a m [facility] [address], [address] [place] [address] OFFICE VISIT Date of Service: 08/08/24 MR#: [id number] Acct: [id number] Name: DAVID POST Rep #: [id number] : 1990 Provider: REECE Marin Age/Sex: 33/F Location: [facility] Status: Signed Intake Vital Signs 07/12/24 10:04 08/02/24 11:21 08/08/24 09:09 Height 5 ft 5 in 5 ft 5 in 5 ft 5 in Weight: 194 lb 4 oz BMI 32.3 BP 131/78 H Intake Visit Reasons: 38 wk ob Chief Complaint: 38wk OB Documentation Clerk Required: No Is patient in pain?: No Allergies bee venom protein (honey bee) (bee sting) Allergy (Verified 08/08/24 09:08) Hives Medications ?Medication ?Instructions ?Recorded ?Confirmed ?Type multivitamin no.47-iron fum 27 1 cap PO DAILY pregnanc y 09/02/22 08/08/24 History mg-folate no.1 1 mg-dha 300 mg capsule (PNV-DHA) ferrous gluconate 240 mg (27 mg 240 mg PO QDAY 4 08/08/24 History iron) tablet (Ferate) nicotine 7 mg/24 hr daily 1 patch transdermal Q24H #14 ea 03/22/24 08/08/24 Rx transdermal patch buspirone 10 mg tablet 5 mg (1/2 x 10 mg) PO BID #6 0 tabs 05/13/24 08/08/24 Rx clobetasol 0.05 % topical cream topical BID 05/13/24 0 08/08/24 History Last Menstrual Period: 09/28/23 : No PFSH PFSH Medical History Uterine anomaly Trauma Anxiety History of asthma History of back pain history of knee pain History of anemia Social History adopted: Yes household members: significant other, children and other details: JOSELYN Luciano (has two kids Ryan Khan lives with his mom) [facility] housing: house number of children: 2 current occupational status: other current occupation: [employer] current occupational exposures/hazards: No pets and animals: Yes (not managing litter box) pets and animals: cat(s) leisure activities: exercise history of recent travel: No sexually active: Yes Smoking Status: Former smoker quit date: 03/13/22 Tobacco: How many years used: 8 quit status: quit date established alcohol intake: never substance use type: marijuana and other details: last Oct 2022, counseling provided. Pt agreeable to drug testing well-balanced diet: daily or most days eating out: rarely or never during the past year weight has: decreased > 10 lbs what type of physical activity do you participate in: walking frequency: 1-2 times per week yesenia/taoist: None seatbelt use: always do you feel safe at home: Yes additional social history: [facility] History 2 Elective abortions Hx Para 1 Spontaneous abortions Hx # Term Pregnancies 1 Ectopic pregnancies Hx # Pregnancies Multiple births # of living children 1 Past Pregnancies Del. Date Name GA/Weeks Outcome Route Bth Weight Infant Gen Labor Lgth Anesthesia Del Locatn Provider FOB 04/29/23 Jason 39 live - full term 6lbs 12oz Male [facility] Mustapha Luciano Delivery Date: 04/29/23 Last Updated by: Dee Dee Dejesus [facility] nrfhts HPI 38 wk ob Details: DAVID POST is a 33 year old who presents for routine OB visit. OB Visit MANUEL Calculator Estimated Delivery Date Method Current WG Current Estimate 08/21/24 Ultrasound #1 38w 1d Other Estimates 07/04/24 LMP (Uncertain) 45w 0d 08/18/24 Ultrasound #2 38w 4d Expected Delivery Route/Plan R C/S with JV Specific Issue/Plans Covid status: [] Flu vaccine: [] Tdap vaccine: discussed Rhogam: [] LARC form signed: [] Problem list reviewed and updated with the most current plan of care details and appropriate orders placed. Relevant counseling for the gestational age provided. Continue routine care and follow up unless otherwise noted in visit notes/problem list details Initial Weight: 181 lb Date -?-?-?-?-?-?-?-?-?-?-?-?- EGA Weight BP Urine Prot -?-?-?-?-?-?-?-?-?-?-?-?- Glucose FHR FuHt Pres Dilation -?-?-?-?-?-?-?-?-?-?-?-?- Effaced St Visit Note 12/21/23 -?-?-?-?-?-?-?-?-?-?-?-?- 5w 1d 181 lb 8 oz (+8 oz) 110/70 -?-?-?-?-?-?-?-?-?-?-?-?- -?-?-?-?-?-?-?-?-?-?-?-?- KW- CRL not cons with dates. SM assisted with scan. measuring 5.1 weeks. plan for hcgs and repeat US next week. 02/23/24 -?-?-?-?-?-?-?-?-?-?-?-?- 14w 2d 173 lb (-8 lb) 119/72 Negative -?-?-?-?-?-?-?-?-?-?-?-?- Negative 147 -?-?-?-?-?-?-?-?-?-?-?-?- JV- pt was absen t for a weeks due to insurance loss. She states that they have insurance now . new ob lab and NIPT ordered. unsure about rpt section vs trial of labor. 03/22/24 -?-?-?-?-?-?-?-?-?-?-?-?- 18w 2d 175 lb (-6 lb) 108/67 Negative -?-?-?-?-?-?-?-?-?-?-?-?- Negative 145 -?-?-?-?-?-?-?-?-?-?-?-?- SM- no vb lof go od fm nro egular ctx SM- no vb lof good fm nro eg ular ctx discussed plan RLTCS at 40-41 weeks plan TOLAC prior 04/15/24 -?-?-?-?-?-?-?-?-?-?-?-?- 21w 5d 176 lb 6 oz (-4 lb 10 oz) 98/64 Negative -?-?-?-?-?-?-?-?-?-?-?-?- Negative 155 -?-?-?-?-?-?-?-?-?-?-?-?- MH-No VB, LOF. G ood FM. Denies concerns 05/13/24 -?-?-?-?-?-?-?-?-?-?-?-?- 25w 5d 181 lb 2 oz (+2 oz) 110/68 Negative -?-?-?-?-?-?-?-?-?-?-?-?- Negative 140 26 -?-?-?-?-?-?-?-?-?-?-?-?- KW- no vb/lof/ct x. good fm. 28 week labs discussed. chiropractor for back pain. 05/27/24 -?-?-?-?-?-?-?-?-?-?-?-?- 27w 5d 181 lb 4 oz (+4 oz) 108/66 Negative -?-?-?-?-?-?-?-?-?-?-?-?- Negative 138 28 -?-?-?-?-?-?-?-?-?-?-?-?- KW- no vb/yuni lott. good fm. labs today. LARC today. 06/14/24 -?-?-?-?-?-?-?-?-?-?-?-?- 30w 2d 182 lb (+16 oz) 129/78 Negative -?-?-?-?-?-?-?-?-?-?-?-?- Negative 140 30 -?-?-?-?-?-?-?-?-?-?-?-?- SM- no vb lof go od fm no reulgar ctx 06/24/24 -?-?-?-?-?-?-?-?-?-?-?-?- 31w 5d 183 lb 6 oz (+2 lb 6 oz) 120/73 Negative -?-?-?-?-?-?-?-?-?-?-?-?- Negative 135 30 -?-?-?-?-?-?-?-?-?-?-?-?- KW- no vb/lof/ct x. good fm no concerns today 07/12/24 -?-?-?-?-?-?-?-?-?-?-?-?- 34w 2d 188 lb 2 oz (+7 lb 2 oz) 116/73 Negative -?-?-?-?-?-?-?-?-?-?-?-?- Negative 130 34 Cephalic -?-?-?-?-?-?-?-?-?-?-?-?- KW- no vb/lof/ct x. good fm. stretching for low back pain. 07/22/24 -?-?-?-?-?-?-?-?-?-?-?-?- 35w 5d 184 lb 4 oz (+3 lb 4 oz) 118/73 Negative -?-?-?-?-?-?-?-?-?-?-?-?- Negative 135 35 Cephalic -?-?-?-?-?-?-?-?-?-?-?-?- JV- cephalic on scan today. (unofficial in office scan) discussed today. has backup plan for rpt section on august 21. no lof, vaginal bleeding, or dec fm. 08/02/24 -?-?-?-?-?-?-?-?-?-?-?-?- 37w 2d 192 lb 4 oz (+11 lb 4 oz) 129/81 Negative -?-?-?-?-?-?-?-?-?-?-?-?- Negative 125 36 0 -?-?-?-?-?-?-?-?-?-?-?-?- -3 KW- no v b/lof. good fm. having some contractions at night-feels like baby is dropping. 08/08/24 -?-?--?-?-?-?-?-?-?-?-?-?- 38w 1d 194 lb 4 oz (+13 lb 4 oz) 131/78 Negative -?-?-?-?-?-?-?-?-?-?-?-?- Negative 130 38 Cephalic 2 .5 -?-?-?-?-?-?-?-?-?-?-?-?- 60 -2 KW- no vb/ lof. irregular ctx. good fm. labor precautions. would like membrane sweep next week. ACOG First Trimester First Trimester: Desire for , Alcohol, Tobacco Cessation, Illicit/Recreational Drug/Substance Use, Intimate Partner Violence, Barriers to care, Unstable Housing, Communication Barriers, Environmental/Work Hazards, Anticipated Course of Care, Toxoplasmosis Precations, Use of Any medications, Sexual activity, Exercise, Dental Care, Sauna/Hot tub use, Seat Belt use, Childbirth classes/Hospital facilities, Travel, Indications for Ultrasound and Screening for Aneuploidy; Discussed Second Trimester Second Trimester: Signs and Symptoms of Labor, Selecting a care provider, Reproductive Life Planning & Contreception, Care Planning, Depression/Anxiety and Intimate Partner Violence; Discussed Tobacco Cessation Third Trimester Third Trimester: Pain Management Plans, Labor support person(s), Immediate Larc, Movement Monitoring, Signs and Symptoms of Preeclampsia and [place] Education ROS Const Reports system reviewed and no additional complaints, except as documented Eyes Reports system reviewed and no additional complaints, except as documented ENT Reports system reviewed and no additional complaints, except as documented Card Reports system reviewed and no additional complaints, except as documented Resp Reports system reviewed and no additional complaints, except as documented GI Reports system reviewed and no additional complaints, except as documented, Denies nausea and Denies vomiting Reports system reviewed and no additional complaints, except as documented Musc Reports system reviewed and no additional complaints, except as documented Skin/Breast Reports system reviewed and no additional complaints, except as documented Neuro Yes system reviewed and no additional complaints, except as documented Psych Reports system reviewed and no additional complaints, except as documented Endo Reports system reviewed and no additional complaints, except as documented Antoine/Lymph Reports system reviewed and no additional complaints, except as documented Aller/Immun Reports system reviewed and no additional complaints, except as documented Exam Const General: cooperative, healthy appearing and no acute distress Orientation: alert, awake and oriented x3 Neck Neck: normal visual inspection and full ROM Resp Effort & Inspection: normal respiratory effort, able to speak in complete sentences and symmetric chest movement GI Inspection: normal to inspection Palpation: soft and other Other: gravid Skin General: no rashes or lesions noted Neuro General: patient alert, patient awake and patient oriented x3 Cognition: normal cognition Speech: speech normal Gait: normal gait Motor: muscle tone normal throughout Extrem General: normal to inspection and full ROM Psych Appearance: grossly normal Mental Status: mental status grossly normal Mood: congruent mood Affect: normal affect Speech and Movement: speech and movement normal Attitude: cooperative Thought Process: normal Thought Content: normal Judgment: judgment good Results POC Urinalysis 2 Dip (Clinic) Office Urine Glucose Negative Last Edit by Yari Stevens on 08/08/24 09:17 Office Urine Protein Negative Last Edit by Yari Stevens on 08/08/24 09:17 Coding Level of Care Code Off vis,est,level 3 Diagnoses Positive GBS test B95.1 Previous section Z98.891 Obesity affecting in second trimester, unspecified obesity type O99.212 Obesity type affecting : unspecified obesity Trimester: second trimester Supervision of high risk in second trimester O09.92 Trimester: second trimester 38 weeks gestation of Z3A.38 Weeks of gestation: 38 weeks Borderline personality disorder F60.3 Uterine anomaly Q51.9 ASCUS with positive high 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al R87.610; R87.810 Marijuana smoker F12.90 Depression, unspecified depression type F32.A Depression Type: unspecified Assessment and Plan Assessment and Plan (1) Positive GBS test: Status: Acute Comment: treat if in labor. (2) Previous section: Status: Acute Comment: Desires TOLAC vs repeat c/s with SM, RLTCS scheduled for 08/21 @ 7:15 with JV. (DELPHINE out of office all week) (3) Obesity affecting : Status: Acute Qualifiers: Obesity type affecting : unspecified obesity Trimester: second trimester Qualified Code(s): O99.212 - Obesity complicating , second trimester Comment: A1C (4) Supervision of high-risk : Status: Acute Qualifiers: Trimester: second trimester Qualified Code(s): O09.92 - Supervision of high risk , unspecified, second trimester Comment: PRR, , MANUEL 07/04/24, girl Janusz BALTAZAR Jason, JOSELYN Luciano (5) : Status: Acute Qualifiers: Weeks of gestation: 38 weeks Qualified Code(s): Z3A.38 - 38 weeks gestation of Comment: NIPT with gender, declines carrier. nl anatomy (6) Borderline personality disorder: Status: Acute Comment: sees counselor (7) Uterine anomaly: Status: Acute Comment: tilted (8) ASCUS with positive high 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al: Status: Acute Comment: [place] done repeat pap 08/04 (9) Marijuana smoker: Status: Acute Comment: occasional for anxiety, counseling provided. last Oct 2023 (10) Depression: Status: Acute Qualifiers: Depression Type: unspecified Qualified Code(s): F32.A - Depression, unspecified Comment: erna okeefe counselor Orders: Orders POC Urinalysis 2 Dip (Clinic) Today Plan Details Additional Comments: ACOG trimester education reviewed and updated. see problem list details for updated plan management information and see below for orders placed at this visit. GA appropriate handout given. 08/08/24 0939 <Electronically signed by Anna cross CNM> Date _ Anna Marin CNM Cosigner Signature: Date (if applicable) CC: ~ [facility] Work Phone: Progrzln note Author Katelin Montejo [facility] Note Date/Time September 24, 2024 11:5 5am [facility] [address] [place] [address], [address] [place] [address] OFFICE VISIT Date of Service: 09/24/24 MR#: [id number] Acct: [id number] Name: DAVID POST Rep #: [id number] : 1990 Provider: Dr. Chanel Goins, Age/Sex: 33/F Location[place] [facility] [place] Status: Signed Intake Vital Signs 05/27/24 14:51 08/11/24 20:18 08/27/24 11:12 09/24/24 11:07 Height 5 ft 5 in 5 ft 3 in 5 ft 3 in 5 ft 3 in Weight: 173 lb BMI 30.6 BP 106/71 Intake Visit Reasons: visit (obstetrics) Chief Complaint: visit Documentation Clerk Required: No Is patient in pain?: No Allergies bee venom protein (honey bee) (bee sting) Allergy (Verified 09/24/24 11:05) Hives Medications ?Medication ?Instructions ?Recorded ?Confirmed ?Type multivitamin no.47-iron fum 27 1 cap PO DAILY pregnanc y 09/02/22 09/24/24 History mg-folate no.1 1 mg-dha 300 mg capsule (PNV-DHA) escitalopram oxalate 5 mg tablet 5 mg PO QDAY #30 tabs 09/24/24 09/24/24 Rx (Lexapro) norethindrone (contraceptive) 0.35 0.35 mg PO QDAY #84 tabs 09/24/24 09/24/24 Rx mg tablet (Senia) : Yes PFSH Medical History Adopted depression Depression delivery delivered Borderline personality disorder Marijuana abuse Uterine anomaly Trauma Anxiety History of asthma History of back pain History of anemia Social History adopted: Yes household members: significant other, children and other details: JOSELYN Luciano (has two kids Ryan Khan lives with his mom) [facility] housing: house number of children: 2 current occupational status: other current occupation: [employer] current occupational exposures/hazards: No pets and animals: Yes (not managing litter box) pets and animals: cat(s) leisure activities: exercise history of recent travel: No sexually active: Yes Smoking Status: Current every day smoker tobacco type: cigarettes Tobacco: How many years used: 8 quit status: quit date established alcohol intake: never substance use type: marijuana and other details: last Oct 2022, counseling provided. Pt agreeable to drug testing well-balanced diet: daily or most days eating out: rarely or never during the past year weight has: decreased > 10 lbs what type of physical activity do you participate in: walking frequency: 1-2 times per week yesenia/taoist: None seatbelt use: always do you feel safe at home: Yes additional social history: [facility] History 2 Elective abortions Hx Para 2 Spontaneous abortions Hx # Term Pregnancies 2 Ectopic pregnancies Hx # Pregnancies Multiple births # of living children 2 Past Pregnancies Del. Date Name GA/Weeks Outcome Route Bth Weight Infant Gen Labor Lgth Anesthesia Del Locatn Provider FOB 04/29/23 Jason 39 live - full term 6lbs 12oz Male [facility] Nadergregory [facility] 08/12/24 Janusz 38 live - full term 6lb 1oz Female [facility] DELPHINE ALVES [facility] Delivery Date: 04/29/23 Last Updated by: Dee Dee Dejesus [facility] Delivery Date: 08/12/24 Last Updated by: Katelyn Garcia RN rltcs 38 uterine rupture girl janusz Depression Screen PHQ-2/9 PHQ-2 Over the last 2 weeks, how often have you been bothered by any of the following problems? 1. Little interest or pleasure in doing things: several days 2. Feeling down, depressed, or hopeless: several days Total score: 2 If score is 2 or greater, continue 3. Trouble falling or staying asleep, or sleeping too much: not at all 4. Feeling tired or having little energy: several days 5. Poor appetite or overeating: several days 6. Feeling bad about yourself - or that you are a failure or have let yourself and your family down: several days 7. Trouble concentrating on things, such as reading the newspaper or watching television: not at all 8. Moving or speaking so slowly that other people could have noticed? - Or the opposite - being so fidgety or restless that you have been moving around a lot more than usual: more than half the days 9. Thoughts that you would be better off or of hurting yourself in some way: not at all Total score: 7 If you checked off any problems, how difficult have these problems made it for you to do your work, take care of things at home, or get along with other people?: somewhat difficult Source: Developed by Drs. Iban L. KodyCassandra alatorre, Jesse Tobar and colleagues, with an educational alber from [employer]. Post HPI Routine Follow-Up: Details: DAVID POST is a 33 year old who presents for her post visit. Her husbandhas not been as supportive as she hoped. 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 Feeding: Breast Menses resumed: Yes [place] since delivery: Yes Emotional Support: No Last Pap:: 2023- abno Control Method: mini-pill ROS Const Reports system reviewed and no additional complaints, except as documented GI Reports system reviewed and no additional complaints, except as documented, Denies bloating, Denies constipation, Denies nausea and Denies vomiting Reports system reviewed and no additional complaints, except as documented, Denies abnormal vaginal bleeding, Denies pelvic pain, Denies sexual dysfunction,Denies urinary incontinence, Denies urinary hesitancy, Denies urinary urgency and Denies vaginal discharge Skin/Breast Reports system reviewed and no additional complaints, except as documented and Reports as per HPI Psych Reports as per HPI Exam Const General: cooperative, healthy appearing, comfortable and no acute distress HENWV Head: normal to inspection Neck Neck: normal visual inspection and no lymphadenopathy Thyroid: thyroid normal Chest Breast inspection: normal inspection of the breasts and normal inspection of theaxillae Breast palpation: normal palpation of the breasts and normal palpation of the axillae Resp Effort & Inspection: normal respiratory effort GI Inspection: normal to inspection Palpation: soft, no hepatosplenomegaly and nontender General: bladder normal to palpation External Female Exam: normal external appearance and normal appearance of the urethra Urethra: normal appearance of the urethra Speculum Exam - Vagina: normal appearance of the vagina and normal vaginal discharge Speculum Exam - Cervix: normal appearance of the cervix Bimanual Exam- Vagina & Uterus: normal bimanual exam, uterine size normal, bladder normal to palpation, uterine shape normal and non-tender Bimanual Exam- Adnexa, other: normal adnexae and normal Pelvic Support: normal Skin General: no rashes or lesions noted Coding Level of Care Code Care Only Diagnoses Routine Follow-Up Z39.2 Assessment and Plan Assessment and Plan (1) Routine Follow-Up: Plan: Cervical cancer screening: pap done today Contraceptive plans: norethindrone Complications: none depression- starting lexapro, recommend counseling. will need follow up, however may need to come back for a colposcopy. will wait to schedule until after pap result is back. Follow up for annual exams or sooner if indicated. Medications: New norethindrone (contraceptive) (Senia) start day 1 of menstrual cycle 0.35 mg PO QDAY 84 tabs 4RF escitalopram oxalate (Lexapro) 5 mg PO QDAY 30 tabs 3RF 09/24/24 1155 <Electronically signed by Katelin Monte DO> Date _ Katelin Goins DO Cosigner Signature: Date (if applicable) CC: ~ [place] [employer] Work Phone: [facility] (narrative)* Diagnostic Procedure Only (Urgent) - Pending Review Specialty Diagnoses / Procedures Referred By Contac t Referred To Contact XR IMAGING Diagnoses Injury of right hand, initial encounter Pain of finger of right hand Procedures XR HAND GENERAL 3V PA/LAT/OBL RIGHT RADEX HAND MINIMUM 3 VIEWS Sherri Seaman APRN.DIRECTOR OF SOCIAL WORK [id number] [place] [address] Xr Imaging Referral ID Status Reason Start Date Expiration Date Visits Requested Visits Authorized [id number] Pending Review Auto-Generat ed Referral 06/14/2022 07/14/2023 1 1 [facility] for referral (narrative)* Diagnostic Procedure Only (Urgent) - Denied Specialty Diagnoses / Procedures Referred By Contac t Referred To Contact XR IMAGING Diagnoses Injury of right hand, initial encounter Pain of finger of right hand Procedures XR HAND GENERAL 3V PA/LAT/OBL RIGHT RADEX HAND MINIMUM 3 VIEWS Sherri Seaman APRN.DIRECTOR OF SOCIAL WORK [id number] [place] [address] [place] [address] Referral ID Status Reason Start Date Expiration Date V isits Requested Visits Authorized [id number] Denied Auto-Generate d Referral 06/14/2022 07/14/2023 1 [facility]No reason for referral [facility] Work Phone: Reason for visit Narrative* Diagnostic Procedure Only (Urgent) - Denied Specialty Diagnoses / Procedures Referred By Contac t Referred To Contact XR IMAGING Diagnoses Injury of right hand, initial encounter Pain of finger of right hand Procedures XR HAND GENERAL 3V PA/LAT/OBL RIGHT RADEX HAND MINIMUM 3 VIEWS Sherri Seaman APRN.DIRECTOR OF SOCIAL WORK [id number] [place] [address] [place] [address] Referral ID Status Reason Start Date Expiration Date V isits Requested Visits Authorized [id number] Denied Auto-Generate d Referral 06/14/2022 07/14/2023 1 0 [facility] Summary Purpose Family History No Family History Records FoundNo Family History Records FoundNo Family History Records FoundNo Family History Records Found Advance Directives Advance Directive Response Recorded Date/ Time Living Will No April 28 2:44am Power of Footwear Machinery Instructor No April 28, 2023 2:44am Advance Directive Response Recorded Date/ Time Living Will No April 28 3:44am Power of Footwear Machinery Instructor No April 28, 2023 3:44am Advance Directive Response Recorded Date/ Time Do you have a Healthcare Power of Footwear Machinery Instructor? No August 12, 2024 1:41am Chief Complaint and Reason for Visit Chief Complaint NOB LMP: 5/5 10 WK OB, pt missed appt 10/07 Reason for Visit Asthma Depression Marijuana smoker Supervision of high-risk Asthma Depression Marijuana smoker Supervision of high-risk Chief Complaint NOB LMP: 5/5 10 WK OB, pt missed appt 10/07 14 WK OB INT LABS Reason for Visit Asthma Depression Marijuana smoker Supervision of high-risk Asthma Depression Marijuana smoker Supervision of high-risk Asthma Depression Marijuana smoker Supervision of high-risk Chief Complaint 14 WK OB INT LABS 18 WK OB 22 WK OB 28 WK OB Reason for Visit Asthma Depression Marijuana smoker Supervision of high-risk Abscess of nipple Asthma Depression Marijuana smoker Supervision of high-risk Frequency of urination Abscess of nipple Asthma Depression Marijuana smoker Supervision of high-risk Chief Complaint 22 WK OB 28 WK OB 30 WK OB 35 WK OB GROWTH SCAN D/T ASTHMA INHALER USE Reason for Visit Abscess of nipple Asthma Depression Marijuana smoker Supervision of high-risk Frequency of urination Abscess of nipple Asthma Depression Marijuana smoker Supervision of high-risk Abscess of nipple Asthma Depression Marijuana smoker Supervision of high-risk Asthma Depression Marijuana smoker Supervision of high-risk Chief Complaint 22 WK OB 28 WK OB 30 WK OB 35 WK OB GROWTH SCAN D/T ASTHMA INHALER USE 37 WK OB COUGH, BODY ACHES, FATIGUE, CHILLS Reason for Visit Abscess of nipple Asthma Depression Marijuana smoker Supervision of high-risk Frequency of urination Abscess of nipple Asthma Depression Marijuana smoker Supervision of high-risk Abscess of nipple Asthma Depression Marijuana smoker Supervision of high-risk Asthma Depression Marijuana smoker Supervision of high-risk Abscess of nipple Asthma Depression Marijuana smoker Supervision of high-risk 37 weeks gestation of Congestion of nasal sinus Cough COVID Fatigue Fever Chief Complaint 22 WK OB 28 WK OB 30 WK OB 35 WK OB GROWTH SCAN D/T ASTHMA INHALER USE 37 WK OB COUGH, BODY ACHES, FATIGUE, CHILLS PRIMARY C SECTION LABOR PRIMARY C SECTION PRIMARY C SECTION Reason for Visit Asthma Depression Marijuana smoker Abscess of nipple Frequency of urination Supervision of high-risk Asthma Depression Marijuana smoker Abscess of nipple Supervision of high-risk Asthma Depression Marijuana smoker Abscess of nipple Supervision of high-risk Asthma Depression Marijuana smoker Supervision of high-risk Asthma Depression Marijuana smoker Abscess of nipple Supervision of high-risk COVID 37 weeks gestation of Congestion of nasal sinus Cough Fatigue Fever Asthma delivery delivered COVID Depression Gestational hypertension Marijuana smoker 37 weeks gestation of Active labor at term Non-reassuring heart rate with late deceleration SROM (spontaneous rupture of membranes) Supervision of high-risk Chief Complaint 28 WK OB 30 WK OB 35 WK OB GROWTH SCAN D/T ASTHMA INHALER USE 37 WK OB COUGH, BODY ACHES, FATIGUE, CHILLS PRIMARY C SECTION LABOR PRIMARY C SECTION PRIMARY C SECTION incision check visit (obstetrics) Reason for Visit Asthma Depression Marijuana smoker Abscess of nipple Supervision of high-risk Asthma Depression Marijuana smoker Abscess of nipple Supervision of high-risk Asthma Depression Marijuana smoker Supervision of high-risk Asthma Depression Marijuana smoker Abscess of nipple Supervision of high-risk COVID 37 weeks gestation of Congestion of nasal sinus Cough Fatigue Fever Asthma delivery delivered COVID Depression Gestational hypertension Marijuana smoker 37 weeks gestation of Active labor at term Non-reassuring heart rate with late deceleration SROM (spontaneous rupture of membranes) Supervision of high-risk delivery delivered Routine Follow-Up Chief Complaint Admit Date 14wk OB February 23, 2024 9:34am 18 wk ob March 22, 2024 2 :54pm 22 wk ob April 15, 2024 3 :44pm fallMay 02, 2024 10:00am fallMay 02, 2024 11:05am 26 wk ob May 13, 2024 10:5 8am 28 wk ob/glucose May 27, 2024 2:3 1pm Reason for Visit Admit Date ASCUS with positive high 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 al February 23, 2024 9:34am Borderline personality disorder February 23, 2024 9:34am Depression February 23, 2024 9:34am Marijuana smoker February 23, 2024 9:34am Obesity affecting February 9:34am Positive GBS test February 23, 2024 9:34am February 23, 2024 9:34am Previous section February 23, 2024 9:34am Supervision of high-risk Decem 2023 9:34am Uterine anomaly February 23, 2024 9:34am ASCUS with positive high 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 al March 22, 2024 2:54pm Borderline personality disorder March 22, 2024 2:54pm Depression March 22, 2024 2 :54pm Marijuana smoker March 22, 2024 2 :54pm Obesity affecting March 2:54pm Positive GBS test March 22, 2024 2 :54pm March 22, 2024 2 :54pm Previous section March 22, 2024 2:54pm Supervision of high-risk Janua 2024 2:54pm 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, 2024 2 :54pm Borderline personality disorder April 15, 2024 3:44pm Depression April 15, 2024 3 :44pm Marijuana smoker April 15, 2024 3 :44pm Obesity affecting April 3:44pm Positive GBS test April 15, 2024 3 :44pm April 15, 2024 3 :44pm Previous section April 15, 2024 3:44pm Supervision of high-risk Febru tiffanie 2024 3:44pm Uterine anomaly April 15, 2024 3 :44pm ASCUS with positive high 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 al May 13, 2024 10:58am Borderline personality disorder May 10:58am Depression May 13, 2024 10:5 8am Marijuana smoker May 13, 2024 10:5 8am Obesity affecting May 13, 025 10:58am Positive GBS test May 13, 2024 10:5 8am May 13, 2024 10:5 8am Previous section May 13 10:58am Supervision of high-risk May 13, 2024 10:58am Uterine anomaly May 13, 2024 10:5 8am ASCUS with positive high 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 al May 27, 2024 2:31pm Borderline personality disorder May 272024 2:31pm Depression May 27, 2024 2:3 1pm Marijuana smoker May 27, 2024 2:3 1pm Obesity affecting May 27, 2024 2:31pm Positive GBS test May 27, 2024 2:3 1pm May 27, 2024 2:3 1pm Previous section May 27 2:31pm Supervision of high-risk May 27, 2024 2:31pm Uterine anomaly May 27, 2024 2:3 1pm Chief Complaint Admit Date 22 wk ob April 15, 2024 3 :44pm FALL May 02, 2024 10:00am FALL May 02, 2024 11:05am 26 wk ob May 13, 2024 10:5 8am 28 wk ob/glucose May 27, 2024 2:3 1pm 30 wk ob June 14, 2024 2:46 pm 32wk ob June 24, 2024 2:2 3pm 34wk ob July 12, 2024 10:01a m 36wk ob July 22, 2024 10:19 am 37 wk ob August 02, 2024 11:18 am 38 wk ob August 08, 2024 9:07a m Reason for Visit Admit Date Borderline personality disorder April 15, 2024 3:44pm Depression April 15, 2024 3 :44pm Marijuana smoker April 15, 2024 3 :44pm Obesity affecting April 3:44pm Positive GBS test April 15, 2024 3 :44pm April 15, 2024 3 :44pm Previous section April 15, 2024 3:44pm Supervision of high-risk Febru [email or web address] 3:44pm Uterine anomaly April 15, 2024 3 :44pm ASCUS with positive high 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 al May 13, 2024 10:58am Borderline personality disorder May 10:58am Depression May 13, 2024 10:5 8am Marijuana smoker May 13, 2024 10:5 8am Obesity affecting May 13, 025 10:58am Positive GBS test May 13, 2024 10:5 8am May 13, 2024 10:5 8am Previous section May 13 10:58am Supervision of high-risk May 13, 2024 10:58am Uterine anomaly May 13, 2024 10:5 8am ASCUS with positive high 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 al May 27, 2024 2:31pm Borderline personality disorder May 272024 2:31pm Depression May 27, 2024 2:3 1pm Marijuana smoker May 27, 2024 2:3 1pm Obesity affecting May 27, 2024 2:31pm Positive GBS test May 27, 2024 2:3 1pm May 27, 2024 2:3 1pm Previous section May 27 2:31pm Supervision of high-risk May 27, 2024 2:31pm Uterine anomaly May 27, 2024 2:3 1pm ASCUS with positive high 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 al June 14, 2024 2:46pm Borderline personality disorder June 2:46pm Depression June 14, 2024 2:46 pm Marijuana smoker June 14, 2024 2:46 pm Obesity affecting June 14, 2 025 2:46pm Positive GBS test June 14, 2024 2:46 pm June 14, 2024 2:46 pm Previous section June 14 2:46pm Supervision of high-risk June 14, 2024 2:46pm Uterine anomaly June 14, 2024 2:46 pm ASCUS with positive high 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 al June 24, 2024 2:23pm Borderline personality disorder June 242024 2:23pm Depression June 24, 2024 2:2 3pm Marijuana smoker June 24, 2024 2:2 3pm Obesity affecting June 24, 2024 2:23pm Positive GBS test June 24, 2024 2:2 3pm June 24, 2024 2:2 3pm Previous section June 24 2:23pm Supervision of high-risk June 24, 2024 2:23pm Uterine anomaly June 24, 2024 2:2 3pm ASCUS with positive high 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 al July 12, 2024 10:01am Borderline personality disorder July 12, 2024 10:01am Depression July 12, 2024 10:01a m Marijuana smoker July 12, 2024 10:01a m Obesity affecting July 12 10:01am Positive GBS test July 12, 2024 10:01a m July 12, 2024 10:01a m Previous section July 12, 2024 10:01am Supervision of high-risk July 122024 10:01am Uterine anomaly July 12, 2024 10:01a m ASCUS with positive high 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 al July 22, 2024 10:19am Borderline personality disorder July 10:19am Depression July 22, 2024 10:19 am Marijuana smoker July 22, 2024 10:19 am Obesity affecting July 22 10:19am Positive GBS test July 22, 2024 10:19 am July 22, 2024 10:19 am Previous section July 22, 2024 10:19am Supervision of high-risk July 112024 10:19am Uterine anomaly July 22, 2024 10:19 am ASCUS with positive high 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 al August 02, 2024 11:18am Borderline personality disorder July 11:18am Depression August 02, 2024 11:18 am Marijuana smoker August 02, 2024 11:18 am Obesity affecting August 02 11:18am Positive GBS test August 02, 2024 11:18 am August 02, 2024 11:18 am Previous section August 02, 2024 11:18am Supervision of high-risk July 122024 11:18am Uterine anomaly August 02, 2024 11:18 am ASCUS with positive high 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 al August 08, 2024 9:07am Borderline personality disorder July 9:07am Depression August 08, 2024 9:07a m Marijuana smoker August 08, 2024 9:07a m Obesity affecting August 08 9:07am Positive GBS test August 08, 2024 9:07a m August 08, 2024 9:07a m Previous section August 08, 2024 9:07am Supervision of high-risk July 122024 9:07am Uterine anomaly August 08, 2024 9:07a m Chief Complaint Admit Date 22 wk ob April 15, 2024 3 :44pm FALL May 02, 2024 10:00am FALL May 02, 2024 11:05am 26 wk ob May 13, 2024 10:5 8am 28 wk ob/glucose May 27, 2024 2:3 1pm 30 wk ob June 14, 2024 2:46 pm 32wk ob June 24, 2024 2:2 3pm 34wk ob July 12, 2024 10:01a m 36wk ob July 22, 2024 10:19 am 37 wk ob August 02, 2024 11:18 am 38 wk ob August 08, 2024 9:07a m LABOR August 11, 2024 11:33 pm REPEAT August 12, 2024 1:01a m LABOR August 13, 2024 11:43 am Reason for Visit Admit Date Borderline personality disorder April 15, 2024 3:44pm Depression April 15, 2024 3 :44pm Marijuana smoker April 15, 2024 3 :44pm Obesity affecting April 3:44pm Positive GBS test April 15, 2024 3 :44pm April 15, 2024 3 :44pm Supervision of high-risk Febru tiffanie 2024 3:44pm Uterine anomaly April 15, 2024 3 :44pm Previous section April 15, 2024 3:44pm ASCUS with positive high 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 al May 13, 2024 10:58am Borderline personality disorder May 10:58am Depression May 13, 2024 10:5 8am Marijuana smoker May 13, 2024 10:5 8am Obesity affecting May 13, 025 10:58am Positive GBS test May 13, 2024 10:5 8am May 13, 2024 10:5 8am Supervision of high-risk May 13, 2024 10:58am Uterine anomaly May 13, 2024 10:5 8am Previous section May 13 10:58am ASCUS with positive high 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 al May 27, 2024 2:31pm Borderline personality disorder May 272024 2:31pm Depression May 27, 2024 2:3 1pm Marijuana smoker May 27, 2024 2:3 1pm Obesity affecting May 27, 2024 2:31pm Positive GBS test May 27, 2024 2:3 1pm May 27, 2024 2:3 1pm Supervision of high-risk May 27, 2024 2:31pm Uterine anomaly May 27, 2024 2:3 1pm Previous section May 27 2:31pm ASCUS with positive high 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 al June 14, 2024 2:46pm Borderline personality disorder June 2:46pm Depression June 14, 2024 2:46 pm Marijuana smoker June 14, 2024 2:46 pm Obesity affecting June 14, 2 025 2:46pm Positive GBS test June 14, 2024 2:46 pm June 14, 2024 2:46 pm Supervision of high-risk June 14, 2024 2:46pm Uterine anomaly June 14, 2024 2:46 pm Previous section June 14 2:46pm ASCUS with positive high 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 al June 24, 2024 2:23pm Borderline personality disorder June 242024 2:23pm Depression June 24, 2024 2:2 3pm Marijuana smoker June 24, 2024 2:2 3pm Obesity affecting June 24, 2024 2:23pm Positive GBS test June 24, 2024 2:2 3pm June 24, 2024 2:2 3pm Supervision of high-risk June 24, 2024 2:23pm Uterine anomaly June 24, 2024 2:2 3pm Previous section June 24 2:23pm ASCUS with positive high 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 al July 12, 2024 10:01am Borderline personality disorder July 12, 2024 10:01am Depression July 12, 2024 10:01a m Marijuana smoker July 12, 2024 10:01a m Obesity affecting July 12 10:01am Positive GBS test July 12, 2024 10:01a m July 12, 2024 10:01a m Supervision of high-risk July 122024 10:01am Uterine anomaly July 12, 2024 10:01a m Previous section July 12, 2024 10:01am ASCUS with positive high 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 al July 22, 2024 10:19am Borderline personality disorder July 10:19am Depression July 22, 2024 10:19 am Marijuana smoker July 22, 2024 10:19 am Obesity affecting July 22 10:19am Positive GBS test July 22, 2024 10:19 am July 22, 2024 10:19 am Supervision of high-risk July 112024 10:19am Uterine anomaly July 22, 2024 10:19 am Previous section July 22, 2024 10:19am ASCUS with positive high 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 al August 02, 2024 11:18am Borderline personality disorder July 11:18am Depression August 02, 2024 11:18 am Marijuana smoker August 02, 2024 11:18 am Obesity affecting August 02 11:18am Positive GBS test August 02, 2024 11:18 am August 02, 2024 11:18 am Supervision of high-risk July 122024 11:18am Uterine anomaly August 02, 2024 11:18 am Previous section August 02, 2024 11:18am ASCUS with positive high 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 al August 08, 2024 9:07am Borderline personality disorder July 9:07am Depression August 08, 2024 9:07a m Marijuana smoker August 08, 2024 9:07a m Obesity affecting August 08 9:07am Positive GBS test August 08, 2024 9:07a m August 08, 2024 9:07a m Supervision of high-risk July 122024 9:07am Uterine anomaly August 08, 2024 9:07a m Previous section August 08, 2024 9:07am ASCUS with positive high 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 al August 11, 2024 11:33pm Borderline personality disorder August 11:33pm delivery delivered August 11 11:33pm Depression August 11, 2024 11:33 pm Marijuana smoker August 11, 2024 11:33 pm Obesity affecting August 11 11:33pm Positive GBS test August 11, 2024 11:33 pm August 11, 2024 11:33 pm Supervision of high-risk August 11, 2024 11:33pm Uterine anomaly August 11, 2024 11:33 pm Uterine rupture August 11, 2024 11:33 pm Chief Complaint Admit Date fallMay 02, 2024 10:00am FALL May 02, 2024 11:05am 26 wk ob May 13, 2024 10:5 8am 28 wk ob/glucose May 27, 2024 2:3 1pm 30 wk ob June 14, 2024 2:46 pm 32wk ob June 24, 2024 2:2 3pm 34wk ob July 12, 2024 10:01a m 36wk ob July 22, 2024 10:19 am 37 wk ob August 02, 2024 11:18 am 38 wk ob August 08, 2024 9:07a m LABOR August 11, 2024 11:33 pm REPEAT August 12, 2024 1:01a m LABOR August 13, 2024 11:43 am LABOR August 15, 2024 10:34 pm 2 wk RLTCS August 27, 2024 10:0 4am Reason for Visit Admit Date ASCUS with positive high 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 al May 13, 2024 10:58am Borderline personality disorder May 10:58am Depression May 13, 2024 10:5 8am Marijuana smoker May 13, 2024 10:5 8am Obesity affecting May 13, 025 10:58am Positive GBS test May 13, 2024 10:5 8am May 13, 2024 10:5 8am Supervision of high-risk May 13, 2024 10:58am Uterine anomaly May 13, 2024 10:5 8am Previous section May 13 10:58am ASCUS with positive high 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 al May 27, 2024 2:31pm Borderline personality disorder May 272024 2:31pm Depression May 27, 2024 2:3 1pm Marijuana smoker May 27, 2024 2:3 1pm Obesity affecting May 27, 2024 2:31pm Positive GBS test May 27, 2024 2:3 1pm May 27, 2024 2:3 1pm Supervision of high-risk May 27, 2024 2:31pm Uterine anomaly May 27, 2024 2:3 1pm Previous section May 27 2:31pm ASCUS with positive high 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 al June 14, 2024 2:46pm Borderline personality disorder June 2:46pm Depression June 14, 2024 2:46 pm Marijuana smoker June 14, 2024 2:46 pm Obesity affecting June 14, 025 2:46pm Positive GBS test June 14, 2024 2:46 pm June 14, 2024 2:46 pm Supervision of high-risk June 14, 2024 2:46pm Uterine anomaly June 14, 2024 2:46 pm Previous section June 14 2:46pm ASCUS with positive high 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 al June 24, 2024 2:23pm Borderline personality disorder June 242024 2:23pm Depression June 24, 2024 2:2 3pm Marijuana smoker June 24, 2024 2:2 3pm Obesity affecting June 24, 2024 2:23pm Positive GBS test June 24, 2024 2:2 3pm June 24, 2024 2:2 3pm Supervision of high-risk June 24, 2024 2:23pm Uterine anomaly June 24, 2024 2:2 3pm Previous section June 24 2:23pm ASCUS with positive high 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 al July 12, 2024 10:01am Borderline personality disorder July 12, 2024 10:01am Depression July 12, 2024 10:01a m Marijuana smoker July 12, 2024 10:01a m Obesity affecting July 12 10:01am Positive GBS test July 12, 2024 10:01a m July 12, 2024 10:01a m Supervision of high-risk July 122024 10:01am Uterine anomaly July 12, 2024 10:01a m Previous section July 12, 2024 10:01am ASCUS with positive high 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 al July 22, 2024 10:19am Borderline personality disorder July 10:19am Depression July 22, 2024 10:19 am Marijuana smoker July 22, 2024 10:19 am Obesity affecting July 22 10:19am Positive GBS test July 22, 2024 10:19 am July 22, 2024 10:19 am Supervision of high-risk July 112024 10:19am Uterine anomaly July 22, 2024 10:19 am Previous section July 22, 2024 10:19am ASCUS with positive high 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 al August 02, 2024 11:18am Borderline personality disorder July 11:18am Depression August 02, 2024 11:18 am Marijuana smoker August 02, 2024 11:18 am Obesity affecting August 02 11:18am Positive GBS test August 02, 2024 11:18 am August 02, 2024 11:18 am Supervision of high-risk July 122024 11:18am Uterine anomaly August 02, 2024 11:18 am Previous section August 02, 2024 11:18am ASCUS with positive high 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 al August 08, 2024 9:07am Borderline personality disorder July 9:07am Depression August 08, 2024 9:07a m Marijuana smoker August 08, 2024 9:07a m Obesity affecting August 08 9:07am Positive GBS test August 08, 2024 9:07a m August 08, 2024 9:07a m Supervision of high-risk July 122024 9:07am Uterine anomaly August 08, 2024 9:07a m Previous section August 08, 2024 9:07am ASCUS with positive high 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 al August 11, 2024 11:33pm Borderline personality disorder August 11:33pm delivery delivered August 11 11:33pm Depression August 11, 2024 11:33 pm Marijuana smoker August 11, 2024 11:33 pm Obesity affecting August 11 11:33pm Positive GBS test August 11, 2024 11:33 pm August 11, 2024 11:33 pm Supervision of high-risk August 11, 2024 11:33pm Uterine anomaly August 11, 2024 11:33 pm Uterine rupture August 11, 2024 11:33 pm Chief Complaint Admit Date FALL May 02, 2024 10:00am FALL May 02, 2024 11:05am 26 wk ob May 13, 2024 10:5 8am 28 wk ob/glucose May 27, 2024 2:3 1pm 30 wk ob June 14, 2024 2:46 pm 32wk ob June 24, 2024 2:2 3pm 34wk ob July 12, 2024 10:01a m 36wk ob July 22, 2024 10:19 am 37 wk ob August 02, 2024 11:18 am 38 wk ob August 08, 2024 9:07a m LABOR August 11, 2024 11:33 pm REPEAT August 12, 2024 1:01a m LABOR August 13, 2024 11:43 am LABOR August 15, 2024 10:34 pm 2 wk RLTCS August 27, 2024 11:0 5am Chief Complaint Admit Date 28 wk ob/glucose May 27, 2024 2:3 1pm 30 wk ob June 14, 2024 2:46 pm 32wk ob June 24, 2024 2:2 3pm 34wk ob July 12, 2024 10:01a m 36wk ob July 22, 2024 10:19 am 37 wk ob August 02, 2024 11:18 am 38 wk ob August 08, 2024 9:07a m LABOR August 11, 2024 11:33 pm REPEAT August 12, 2024 1:01a m LABOR August 13, 2024 11:43 am LABOR August 15, 2024 10:34 pm 2 wk RLTCS August 27, 2024 11:0 5am visit (obstetrics) September 24, 2024 10:54am Reason for Visit Admit Date ASCUS with positive high 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 al May 27, 2024 2:31pm Borderline personality disorder May [id number] 2:31pm Depression May 27, 2024 2:3 1pm Marijuana smoker May 27, 2024 2:3 1pm Obesity affecting May 27, 2024 2:31pm Positive GBS test May 27, 2024 2:3 1pm May 27, 2024 2:3 1pm Supervision of high-risk May 27, 2024 2:31pm Uterine anomaly May 27, 2024 2:3 1pm Previous section May 27 2:31pm ASCUS with positive high 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 al June 14, 2024 2:46pm Borderline personality disorder June 2:46pm Depression June 14, 2024 2:46 pm Marijuana smoker June 14, 2024 2:46 pm Obesity affecting June 14 2:46pm Positive GBS test June 14, 2024 2:46 pm June 14, 2024 2:46 pm Supervision of high-risk June 14, 2024 2:46pm Uterine anomaly June 14, 2024 2:46 pm Previous section June 14 2:46pm ASCUS with positive high 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 al June 24, 2024 2:23pm Borderline personality disorder June [id number] 2:23pm Depression June 24, 2024 2:2 3pm Marijuana smoker June 24, 2024 2:2 3pm Obesity affecting June 24, 2024 2:23pm Positive GBS test June 24, 2024 2:2 3pm June 24, 2024 2:2 3pm Supervision of high-risk June 24, 2024 2:23pm Uterine anomaly June 24, 2024 2:2 3pm Previous section June 24 2:23pm ASCUS with positive high 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 al July 12, 2024 10:01am Borderline personality disorder July 12, 2024 10:01am Depression July 12, 2024 10:01a m Marijuana smoker July 12, 2024 10:01a m Obesity affecting July 12 10:01am Positive GBS test July 12, 2024 10:01a m July 12, 2024 10:01a m Supervision of high-risk July 122024 10:01am Uterine anomaly July 12, 2024 10:01a m Previous section July 12, 2024 10:01am ASCUS with positive high 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 al July 22, 2024 10:19am Borderline personality disorder July 10:19am Depression July 22, 2024 10:19 am Marijuana smoker July 22, 2024 10:19 am Obesity affecting July 22 10:19am Positive GBS test July 22, 2024 10:19 am July 22, 2024 10:19 am Supervision of high-risk July [id number] 10:19am Uterine anomaly July 22, 2024 10:19 am Previous section July 22, 2024 10:19am ASCUS with positive high 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 al August 02, 2024 11:18am Borderline personality disorder July 11:18am Depression August 02, 2024 11:18 am Marijuana smoker August 02, 2024 11:18 am Obesity affecting August 02 11:18am Positive GBS test August 02, 2024 11:18 am August 02, 2024 11:18 am Supervision of high-risk July 122024 11:18am Uterine anomaly August 02, 2024 11:18 am Previous section August 02, 2024 11:18am ASCUS with positive high 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 al August 08, 2024 9:07am Borderline personality disorder July 9:07am Depression August 08, 2024 9:07a m Marijuana smoker August 08, 2024 9:07a m Obesity affecting August 08 9:07am Positive GBS test August 08, 2024 9:07a m August 08, 2024 9:07a m Supervision of high-risk July 122024 9:07am Uterine anomaly August 08, 2024 9:07a m Previous section August 08, 2024 9:07am ASCUS with positive high 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 al August 11, 2024 11:33pm Borderline personality disorder August 11:33pm delivery delivered August 11 11:33pm Depression August 11, 2024 11:33 pm Marijuana smoker August 11, 2024 11:33 pm Obesity affecting August 11 11:33pm Positive GBS test August 11, 2024 11:33 pm August 11, 2024 11:33 pm Supervision of high-risk August 11, 2024 11:33pm Uterine anomaly August 11, 2024 11:33 pm Uterine rupture August 11, 2024 11:33 pm delivery delivered August 27 11:05am Routine Follow-Up September 24, 2024 10:54am Additional Source Comments INFORMATION SOURCE (unrecogn ized section and content) DATE CREATED AUTHOR 09/05/2017 [facility] DATE CREATED AUTHOR AUTHOR'S ORGANIZ ATION 03/30/2024 [facility] DATE CREATED AUTHOR AUTHOR'S ORGANIZ ATION 04/28/2024 [facility] DATE CREATED AUTHOR AUTHOR'S ORGANIZ ATION 08/29/2024 [facility] Source Comments (unrecognize d section and content) In the event this informatio n is protected by the Federal Confidentiality of Alcohol and Drug Abuse Patient Records regulations: The Federal rules restrict any use of the information to criminally investigate or prosecute any alcohol or drug abuse patient.[facility] HealthIn the event this information is protected by the Federal Confidentiality of Alcohol and Drug Abuse Patient Records regulations: The Federal rules restrict any use of the information to criminally investigate or prosecute any alcohol or drug abuse patient.[facility] HealthIn the event this information is protected by the Federal Confidentiality of Alcohol and Drug Abuse Patient Records regulations: The Federal rules restrict any use of the information to criminally investigate or prosecute any alcohol or drug abuse patient.[facility] HealthIn the event this information is protected by the Federal Confidentiality of Alcohol and Drug Abuse Patient Records regulations: The Federal rules restrict any use of the information to criminally investigate or prosecute any alcohol or drug abuse patient.[facility] HealthIn the event this information is protected by the Federal Confidentiality of Alcohol and Drug Abuse Patient Records regulations: The Federal rules restrict any use of the information to criminally investigate or prosecute any alcohol or drug abuse patient.[facility] HealthIn the event this information is protected by the Federal Confidentiality of Alcohol and Drug Abuse Patient Records regulations: The Federal rules restrict any use of the information to criminally investigate or prosecute any alcohol or drug abuse patient.[facility] HealthIn the event this information is protected by the Federal Confidentiality of Alcohol and Drug Abuse Patient Records regulations: The Federal rules restrict any use of the information to criminally investigate or prosecute any alcohol or drug abuse patient.[facility] Reason for Visit (unrecogniz ed section and content) Reason Comments Trauma Right hand ring fing er, closed in car door Specialty Diagnoses / Procedures Referred By Contac t Referred To Contact Family Medicine / [facility] Diagnoses RM 10 right ring finger injury, slammed in car door today Procedures EST SAME DAY Self Sherri Seaman, [employer].[facility] [id number] [place] [address] Referral ID Status Reason Start Date Expiration Date Visits Re quested Visits Authorized [id number] Denied 06/14/2022 09/12/2022 1 0 Reason Comments Sore Throat X today with + expos ure to strep from fiance; just gave on Friday 04/28 Reason Comments Cough Cough, congestion, s inus and Woodard x 3 days Reason Comments Chest Congestion Headache, cough, (pr oductive), body aches, chills, wheeze, low grade temp x 1 monh Reason Comments Head Congestion Sinus congestion, co ugh, WOOD[place], fever x4 days Reason Comments Ear Pain R ear pain, down int o jaw, loss of hearing x 1 day Care Teams (unrecognized sec tion and content) Team Status: Active Member Role Status Dates No Primary Care Physician Primary Care Provider Active Team Status: Inactive Member Role Status Dates Dr. Meena Luciano MD Attending Provider Active Team Status: Inactive Member Role Status Dates No Primary Care Physician Primary Care Provider Active Dr. Meena Luciano MD Attending Provider, Referr ing Provider Active Team Status: Inactive Member Role Status Dates Anna Marin CNM Attending Provider Active No Primary Care Physician Primary Care Provider, Refer ring Provider Active Team Status: Inactive Member Role Status Dates No Primary Care Physician Primary Care Provider Active Anna Marin CNM Attending Provider, Referring Pro vider Active Team Status: Inactive Member Role Status Dates No Primary Care Physician Primary Care Provider, Refer ring Provider Active Anna Marin CNM Attending Provider Active Team Status: Inactive Member Role Status Dates No Primary Care Physician Primary Care Provider, Refer ring Provider Active Dr. Katelin Goins DO Attending Provider Activ e Team Status: Inactive Member Role Status Dates No Primary Care Physician Primary Care Provider, Refer ring Provider Active Elis Snyder CNM Attending Provider Active Team Status: Inactive Member Role Status Dates No Primary Care Physician Primary Care Provider Active Dr. Katelin Goins DO Attending Provider, Refe rring Provider Active Team Status: Inactive Member Role Status Dates No Primary Care Physician Primary Care Provider Active Elis Snyder CNM Attending Provider, Referring Pr ovider Active Team Status: Inactive Member Role Status Dates No Primary Care Physician Primary Care Provider, Refer ring Provider Active PATRICA Nicholas Attending Provider Active Team Status: Active Member Role Status Dates No Primary Care Physician Primary Care Provider Active Dr. Meena Luciano MD Admit Provid er, Attending Provider, Referring Provider, Other Provider Active Team Status: Inactive Member Role Status Dates No Primary Care Physician Primary Care Provider Active Dr. Meena Luciano MD Admit Provid er, Attending Provider, Referring Provider Active Team Status: Inactive Member Role Status Dates No Primary Care Physician Primary Care Provider, Refer ring Provider Active Dr. Meena Luciano MD Attending Provider Active Team Status: Inactive Member Role Status Dates No Primary Care Physician Primary Care Provider Active Start: February 23, 2024 End: February 23, 2024 No Primary Care Physician Referring Provider Active Start: February 23, 2024 End: February 23, 2024 Dr. Katelin Goins DO Attending Provider Activ e Start: February 23, 2024 End: February 23, 2024 Team Status: Inactive Member Role Status Dates No Primary Care Physician Primary Care Provider Active Start: February 23, 2024 End: February 23, 2024 Dr. Katelin Goins DO Attending Provider Activ e Start: February 23, 2024 End: February 23, 2024 Dr. Katelin Goins DO Referring Provider Activ e Start: February 23, 2024 End: February 23, 2024 Team Status: Inactive Member Role Status Dates No Primary Care Physician Primary Care Provider Active Start: March 22, 2024 End: March 22, 2024 No Primary Care Physician Referring Provider Active Start: March 22, 2024 End: March 22, 2024 Dr. Meena Luciano MD Attending Provider Active Start: March 22, 2024 End: March 22, 2024 Team Status: Inactive Member Role Status Dates No Primary Care Physician Primary Care Provider Active Start: April 15, 2024 End: April 15, 2024 No Primary Care Physician Referring Provider Active Start: April 15, 2024 End: April 15, 2024 Mary Joya W[employer] MANGLE TENDER, W[employer]ANG[employer]ER-C Attending Provider Active Start: April 15, 2024 End: April 15, 2024 Team Status: Inactive Member Role Status Dates No Primary Care Physician Primary Care Provider Active Start: May 02, 2024 End: May 02, 2024 Dr. Meena Luciano MD Attending Provider Active Start: May 02, 2024 End: May 02, 2024 Dr. Meena Luciano MD Referring Provider Active Start: May 02, 2024 End: May 02, 2024 Team Status: Active Member Role Status Dates No Primary Care Physician Primary Care Provider Active Start: May 02, 2024 Dr. Meena Luciano MD Attending Provider Active Start: May 02, 2024 Dr. Meena Luciano MD Referring Provider Active Start: May 02, 2024 Dr. Meena Luciano MD Other Provider Active Start: May 02, 2024 Team Status: Inactive Member Role Status Dates No Primary Care Physician Primary Care Provider Active Start: May 13, 2024 End: May 13, 2024 No Primary Care Physician Referring Provider Active Start: May 13, 2024 End: May 13, 2024 Anna Marin CNM Attending Provider Active S tart: May 13, 2024 End: May 13, 2024 Team Status: Inactive Member Role Status Dates No Primary Care Physician Primary Care Provider Active Start: May 27, 2024 End: May 27, 2024 No Primary Care Physician Referring Provider Active Start: May 27, 2024 End: May 27, 2024 Anna Marin CNM Attending Provider Active S tart: May 27, 2024 End: May 27, 2024 Team Status: Inactive Member Role Status Dates No Primary Care Physician Primary Care Provider Active Start: May 27, 2024 End: May 27, 2024 Anna Marin CNM Attending Provider Active S tart: May 27, 2024 End: May 27, 2024 Anna Tomas , CNM Referring Provider Active S tart: May 27, 2024 End: May 27, 2024 Team Status: Inactive Member Role Status Dates No Primary Care Physician Primary Care Provider Active Start: June 14, 2024 End: June 14, 2024 No Primary Care Physician Referring Provider Active Start: June 14, 2024 End: June 14, 2024 Dr. Meena Luciano MD Attending Provider Active Start: June 14, 2024 End: June 14, 2024 Team Status: Inactive Member Role Status Dates No Primary Care Physician Primary Care Provider Active Start: June 24, 2024 End: June 24, 2024 No Primary Care Physician Referring Provider Active Start: June 24, 2024 End: June 24, 2024 Anna Marin CNM Attending Provider Active S tart: June 24, 2024 End: June 24, 2024 Team Status: Inactive Member Role Status Dates No Primary Care Physician Primary Care Provider Active Start: July 12, 2024 End: July 12, 2024 No Primary Care Physician Referring Provider Active Start: July 12, 2024 End: July 12, 2024 Anna Marin CNM Attending Provider Active S tart: July 12, 2024 End: July 12, 2024 Team Status: Inactive Member Role Status Dates No Primary Care Physician Primary Care Provider Active Start: July 22, 2024 End: July 22, 2024 No Primary Care Physician Referring Provider Active Start: July 22, 2024 End: July 22, 2024 Dr. Katelin Goins DO Attending Provider Activ e Start: July 22, 2024 End: July 22, 2024 Team Status: Inactive Member Role Status Dates No Primary Care Physician Primary Care Provider Active Start: August 02, 2024 End: August 02, 2024 No Primary Care Physician Referring Provider Active Start: August 02, 2024 End: August 02, 2024 Anna Marin CNM Attending Provider Active S tart: August 02, 2024 End: August 02, 2024 Team Status: Inactive Member Role Status Dates No Primary Care Physician Primary Care Provider Active Start: August 08, 2024 End: August 08, 2024 No Primary Care Physician Referring Provider Active Start: August 08, 2024 End: August 08, 2024 Anna Marin CNM Attending Provider Active S tart: August 08, 2024 End: August 08, 2024 Team Status: Inactive Member Role Status Dates No Primary Care Physician Primary Care Provider Active Start: August 11, 2024 End: August 13, 2024 Dr. Meena Luciano MD Admit Provider Active Start: August 11, 2024 End: August 13, 2024 Dr. Meena Luciano MD Attending Provider Active Start: August 11, 2024 End: August 13, 2024 Dr. Meena Luciano MD Referring Provider Active Start: August 11, 2024 End: August 13, 2024 Team Status: Active Member Role Status Dates No Primary Care Physician Primary Care Provider Active Start: August 12, 2024 Dr. Meena Luciano MD Admit Provider Active Start: August 12, 2024 Dr. Meena Luciano MD Attending Provider Active Start: August 12, 2024 Dr. Meena Luciano MD Other Provider Active Start: August 12, 2024 Team Status: Active Member Role Status Dates No Primary Care Physician Primary Care Provider Active Start: August 13, 2024 Dr. Meena Luciano MD Admit Provider Active Start: August 13, 2024 Dr. Meena Luciano MD Attending Provider Active Start: August 13, 2024 Dr. Meena Luciano MD Referring Provider Active Start: August 13, 2024 Dr. Meena Luciano MD Other Provider Active Start: August 13, 2024 Team Status: Active Member Role Status Dates No Primary Care Physician Primary Care Provider Active Start: August 15, 2024 Dr. Meena Luciano MD Admit Provider Active Start: August 15, 2024 Dr. Meena Luciano MD Attending Provider Active Start: August 15, 2024 Dr. Meena Luciano MD Referring Provider Active Start: August 15, 2024 Dr. Meena Luciano MD Other Provider Active Start: August 15, 2024 Team Status: Inactive Member Role Status Dates No Primary Care Physician Referring Provider Active Start: August 27, 2024 End: August 27, 2024 Dr. Meena Luciano MD Attending Provider Active Start: August 27, 2024 End: August 27, 2024 Team Status: Inactive Member Role Status Dates No Primary Care Physician Referring Provider Active Start: August 27, 2024 End: August 27, 2024 Dr. Katelin Goins DO Attending Provider Activ e Start: August 27, 2024 End: August 27, 2024 Team Status: Inactive Member Role/Relationship Status Dates No Primary Care Physician Primary Care Provider Active Start: May 27, 2024 End: May 27, 2024 No Primary Care Physician Referring Provider Active Start: May 27, 2024 End: May 27, 2024 Anna Marin CNM Attending Provider Active S tart: May 27, 2024 End: May 27, 2024 Team Status: Inactive Member Role/Relationship Status Dates No Primary Care Physician Primary Care Provider Active Start: May 27, 2024 End: May 27, 2024 Anna Marin CNM Attending Provider Active S tart: May 27, 2024 End: May 27, 2024 Anna Marin CNM Referring Provider Active S tart: May 27, 2024 End: May 27, 2024 Team Status: Inactive Member Role/Relationship Status Dates No Primary Care Physician Primary Care Provider Active Start: June 14, 2024 End: June 14, 2024 No Primary Care Physician Referring Provider Active Start: June 14, 2024 End: June 14, 2024 Dr. Meena Luciano MD Attending Provider Active Start: June 14, 2024 End: June 14, 2024 Team Status: Inactive Member Role/Relationship Status Dates No Primary Care Physician Primary Care Provider Active Start: June 24, 2024 End: June 24, 2024 No Primary Care Physician Referring Provider Active Start: June 24, 2024 End: June 24, 2024 Anna Marin CNM Attending Provider Active S tart: June 24, 2024 End: June 24, 2024 Team Status: Inactive Member Role/Relationship Status Dates No Primary Care Physician Primary Care Provider Active Start: July 12, 2024 End: July 12, 2024 No Primary Care Physician Referring Provider Active Start: July 12, 2024 End: July 12, 2024 Anna Marin CNM Attending Provider Active S tart: July 12, 2024 End: July 12, 2024 Team Status: Inactive Member Role/Relationship Status Dates No Primary Care Physician Primary Care Provider Active Start: July 22, 2024 End: July 22, 2024 No Primary Care Physician Referring Provider Active Start: July 22, 2024 End: July 22, 2024 Dr. Katelin Goins DO Attending Provider Activ e Start: July 22, 2024 End: July 22, 2024 Team Status: Inactive Member Role/Relationship Status Dates No Primary Care Physician Primary Care Provider Active Start: August 02, 2024 End: August 02, 2024 No Primary Care Physician Referring Provider Active Start: August 02, 2024 End: August 02, 2024 Anna Marin CNM Attending Provider Active S tart: August 02, 2024 End: August 02, 2024 Team Status: Inactive Member Role/Relationship Status Dates No Primary Care Physician Primary Care Provider Active Start: August 08, 2024 End: August 08, 2024 No Primary Care Physician Referring Provider Active Start: August 08, 2024 End: August 08, 2024 Anna Marin CNM Attending Provider Active S tart: August 08, 2024 End: August 08, 2024 Team Status: Inactive Member Role/Relationship Status Dates No Primary Care Physician Primary Care Provider Active Start: August 11, 2024 End: August 13, 2024 Dr. Meena Luciano MD Admit Provider Active Start: August 11, 2024 End: August 13, 2024 Dr. Meena Luciano MD Attending Provider Active Start: August 11, 2024 End: August 13, 2024 Dr. Meena Luciano MD Referring Provider Active Start: August 11, 2024 End: August 13, 2024 Team Status: Active Member Role/Relationship Status Dates No Primary Care Physician Primary Care Provider Active Start: August 12, 2024 Dr. Meena Luciano MD Admit Provider Active Start: August 12, 2024 Dr. Meena Luciano MD Attending Provider Active Start: August 12, 2024 Dr. Meena Luciano MD Other Provider Active Start: August 12, 2024 Team Status: Active Member Role/Relationship Status Dates No Primary Care Physician Primary Care Provider Active Start: August 13, 2024 Dr. Meena Luciano MD Admit Provider Active Start: August 13, 2024 Dr. Meena Luciano MD Attending Provider Active Start: August 13, 2024 Dr. Meena Luciano MD Referring Provider Active Start: August 13, 2024 Dr. Meena Luciano MD Other Provider Active Start: August 13, 2024 Team Status: Active Member Role/Relationship Status Dates No Primary Care Physician Primary Care Provider Active Start: August 15, 2024 Dr. Meena Luciano MD Admit Provider Active Start: August 15, 2024 Dr. Meena Luciano MD Attending Provider Active Start: August 15, 2024 Dr. Meena Luciano MD Referring Provider Active Start: August 15, 2024 Dr. Meena Luciano MD Other Provider Active Start: August 15, 2024 Team Status: Inactive Member Role/Relationship Status Dates No Primary Care Physician Referring Provider Active Start: August 27, 2024 End: August 27, 2024 Dr. Katelin Goins DO Attending Provider Activ e Start: August 27, 2024 End: August 27, 2024 Team Status: Inactive Member Role/Relationship Status Dates No Primary Care Physician Referring Provider Active Start: September 24, 2024 End: September 24, 2024 Dr. Katelin Goins DO Attending Provider Activ e Start: September 24, 2024 End: September 24, 2024 Goals (unrecognized section and content) Goals may be documented in a n alternate sectionGoals may be documented in an alternate sectionGoals may be documented in an alternate sectionGoals may be documented in an alternate sectionGoals may be documented in an alternate sectionGoals may be documented in an alternate sectionGoals may be documented in an alternate section FOR RECORDS PERTAINING TO PATIENTS WHO ARE [...] BE BASED ON THE PRIMARY CLINICAL RECORDS. [employer] provides no warranty or guarantee of the accuracy or completeness of information in this document.
[2024-09-27 12:09] LABS: HPV APTIMA, High Risk Negative (Negative)
== END | disposition home or self-care (01) ==
LOC: LABSPEC 16:11
PROVIDERS: Visit Provider Obstetrics & Gynecology
DX: Z12.4 Encounter for screening for malignant neoplasm of cervix (principal)
CPT/HCPCS: 87624; 88175; G0145

== ENCOUNTER 2024-09-28 11:11 | Emergency (ER) | payer MEDICAID, SELFPAY ==
[2024-09-28 11:11] VITALS: BP 125/77; PULSE 81; RESP 18; TEMP 37.2; O2SAT 98; BMI 30.8
[2024-09-28 11:13] VITALS: BP 125/77; PULSE 81; RESP 19; TEMP 37.2; O2SAT 99
--- OUTSIDE RECORDS SUMMARY | 2024-09-28 11:25 | XMS RPT_ITS | CCD ---
Author Organization [facility] Care Team Providers Care Tile Inspector Name Role Phone NICOLÁS MESA Unavailable Unavailable NICOLÁS MESA Unavailable Unavailable AA NO PCP, NO PCP Unavailable Unavailable Unavailable Primary Care Provider UnavailDr. Meena Ch Attending Provider [phone] REECE Marin Attending Provider [phone] Care Physician, No Primary Primary Care Provider Unavailable Care Physician, No Primary Referring Provider Un available REECE Marin Attending Provider [phone] Care Physician, No Primary Primary Care Provider Unavailable Care Physician, No Primary Referring Provider Un available Dr. Katelin Goins Attending Provider [phone] REECE Snyder Attending Provider Care Physician, No Primary Primary Care Provider Unavailable Care Physician, No Primary Referring Provider Un available REECE Marin Attending Provider [phone] PATRICA Francis Attending Provider Dr. Meena Luciano Admit Provider [phone] Dr. Meena Luciano Attending Provider [phone] Dr. Meena Luciano Referring Provider [phone] Dr. Meena Luciano Other Provider Care Physician, No Primary Primary Care Provider Unavailable Care Physician, No Primary Referring Provider Un available REECE Snyder Attending Provider Dr. Katelin Goins Attending Provider [phone] REECE Marin Attending Provider [phone] PATRICA rFancis Attending Provider Dr. Meena Luciano Admit Provider [phone] Dr. Meena Luciano Attending Provider [phone] Dr. Meena Luciano Referring Provider [phone] Dr. Meena Luciano Other Provider [phone] Unavailable Primary Care Provider Unavailabl e NO PRIMARY CARE, MD Primary Care Unavailable KATELIN CONRAD Referring Unavailab LARRY Olivas Attending Unavailable Care Physician, No Primary Primary Care Provider Unavailable Care Physician, No Primary Referring Provider Un available Dr. Katelin Goins DO Attending Provider Dr. Katelin Goins DO Referring Provider Dr. Meena Luciano MD Attending Provider Mahnaz HERNANDEZ-C, Mary Attending Provider [phone] Dr. Meena Luciano MD Referring Provider Dr. Meena Luciano MD Other Provider [phone] Anna Marin CNM Attending Provider [phone] Anna Marin CNM Referring Provider [phone] Care Physician, No Primary Primary Care Provider Unavailable Care Physician, No Primary Referring Provider Un available Dr. Meena Luciano MD Attending Provider Gerry Montejo DO, Dr. Thomason Attending Provider Dr. Meena Luciano MD Admit Provider [phone] Care Physician, No Primary Primary Care Provider Unavailable Care Physician, No Primary Referring Provider Un available Care Physician, No Primary Primary Care Provider Unavailable Care Physician, No Primary Referring Provider Un available Anna Marin CNM Attending Provider [phone] Dr. Meena Luciano MD Attending Provider [phone] Dr. Meena Luciano MD Referring Provider Dr. Meena Luciano MD Other Provider [phone] Meena Luciano Referring Unavailable Meena Lucinao Admitting Unavailable Meena Luciano Consulting Unavailable Care Physician, No Primary Primary Care Unava ilable Meena Luciano Attending Unavailable Meena Luciano Attending Unavailable Care Physician, No Primary Referring Unava ilable Care Physician, No Primary Primary Care Unava ilable Care Physician, No Primary Referring Unava ilable Care Physician, No Primary Primary Care Unava ilable Leydae Katelin Montejo Attending Unavailabl e Care Physician, No Primary Primary Care Unava ilable Anna Marin Referring Unavailable Anna Marin Attending Unavailable Care Physician, No Primary Primary Care Unava ilable Katelin Goins Admitting Unavailabl e Vande Vellu, Katelin Attending Unavailabl e MarcMeena wing Referring Unavailable Mustapha, Meena Admitting Unavailable Care Physician, No Primary Primary Care Unava ilable Meena Luciano Attending Unavailable Care Physician, No Primary Referring Unava ilable Care Physician, No Primary Primary Care Unava ilable Leydae Vellu, Katelin Attending Unavailabl e Care Physician, No Primary Referring Unava ilable Care Physician, No Primary Primary Care Unava ilable Anna Marin Attending Unavailable Care Physician, No Primary Referring Unava ilable Care Physician, No Primary Primary Care Unava ilable Meena Luciano Attending Unavailable Care Physician, No Primary Referring Unava ilable Care Physician, No Primary Primary Care Unava ilable Anna Marin Attending Unavailable Care Physician, No Primary Referring Unava ilable Care Physician, No Primary Primary Care Unava ilable Anna Marin Attending Unavailable Care Physician, No Primary Referring Unava ilable Care Physician, No Primary Primary Care Unava ilable Anna Marin Attending Unavailable Care Physician, No Primary Referring Unava ilable Care Physician, No Primary Primary Care Unava ilable Katelin Goins Attending Unavailabl e Care Physician, No Primary Referring Unava ilable Care Physician, No Primary Primary Care Unava ilable Anna Marin Attending Unavailable Meena [...] Physician, No Primary Primary Care Unava ilable Leydae VelKatelin leigh Referring Unavailabl e Vande Velde, Katelin Attending Unavailabl e Care Physician, No Primary Primary Care Unava ilable Anna Marin Attending Unavailable Anna Marin Referring Unavailable Care Physician, No Primary Referring Unava ilable Katelin Goins Attending Unavailabl e Care Physician, No Primary Referring Unava ilable Katelin Goins Attending Unavailabl e Care Physician, No Primary Referring Unava ilable Meena Luciano Attending Unavailable Care Physician, No Primary Primary Care Unava ilable Care Physician, No Primary Referring Unava ilable Care Physician, No Primary Primary Care Unava ilable Mahnaz TAG MAKER, Mary Attending Unavailable Meena Luciano Referring Unavailable Meena Luciano Consulting Unavailable Meena Luciano Attending Unavailable Care Physician, No Primary Primary Care Unava ilable Allergies Allergy Classification Reported Allergen(s) Allergy Type Date of Onset Reaction(s) Facility (2 sources) Aspirin; Translations: [ASPIRIN] Drug Allergy 05-22-2019 Unknown [facility] (6 sources) bee venom protein (honey bee) Allergy to substance 05-27-2024 [facility] (1 source) bee venom protein (honey bee) Drug allergy (disorder) 09-24-2024 [facility] Repository Medications Current Medications Medication Drug Class(es) [...] RELIEF) 50 mcg/actuation nasal spray Use 1 [place] in each nostril once daily. 11.1 mL [...] 14 tablet 0 09/05/2023 09/12/2023 Active Multivit 89-Hzuy-Bvtimq 1-Dha (Pnv-Dha) 27 mg iron-1 mg -300 mg capsule (13 sources) Start: 09-02-2022 Multivit 20-Twpn-Sbuopq 1-Dha (Pnv-Dha) 27 mg iron-1 mg -300 [...] 1 {tbl} PO TWICE A DAY 14 January 06, 2023 12:00am February 27, 2023 [...] 500 mg PO TWICE A DAY 14 December 21, 2023 12:00am April 15, 2024 [...] Start: 11-04-2019 take 1 tablet by [place] once daily , 1-20 mg-mcg per tablet Indications: Encounter for surveillance of contraceptive pills TAKE 1 TABLET BY MOUTH EVERY DAY 84 tablet 11/04/2019 Active Start: 11-04-2019 take 1 tablet by [place] th once daily , 1-20 mg-mcg per tablet [...] TWICE DAILY NEEDED as needed for Pain 30 April 28, 2023 1:00am June 09, 2023 3:15pm [...] Onset: 08-08-2024 08-15-2023 Episodic Comment on above: [place] done repeat pap 08/04 Crushing injury or [...] Translations: [Depression] 09-08-2022 Chronic Comment on above: maldonado seetay ip counsel or Mood disorders (2 sources) Mood disorders; [...] above: PRR, , MANUEL , girl Janusz GIOVANNY Gomez, BF Mustapha , MANUEL 07/04/24. 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) drug therapy; Translations: [OTH RETIREMENT CURRENT DRUG THERAPY] Onset: 12-21-2016 Episodic Other [...] WRST HND FNGR INIT] Onset: 12-21-2016 Episodic Other screening for suspected conditions (not mental disorders or infectious disease) (1 source) Encounter for screening for diabetes mellitus; Translations: [Encounter for screening for diabetes mellitus] Onset: 06-05-2024 Episodic Residual codes; unclassified (1 source) 31 weeks gestation of ; Translations: [31 weeks gestation of ] Onset: 06-24-2024 Episodic Residual codes; unclassified (1 source) 27 [...] Test Name Value Interpretation Reference Range 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 Katelin Sotelo DO Age/Sex: 33/F [place] [facility] [place]: Signed Intake Vital Signs 05/27/24 14:51 08/11/24 20:18 08/27/24 11:12 09/24/24 11:07 Height 5 ft 5 in 5 ft 3 in 5 ft 3 in 5 ft 3 in Weight: 173 lb BMI 30.6 BP 106/71 Intake Visit Reasons: visit (obstetrics) Chief Complaint: visit Bin Worker Required: No Is patient in pain?: No Allergies bee venom protein (honey bee) (bee sting) Allergy (Verified 09/24/24 11:05) Hives Medications ???Medication ???Instructions ???Recorded ???Confirmed ???Type multivitamin no.47-iron fum 27 1 cap PO DAILY 09/02/22 09/24/24 History mg-folate no.1 1 mg-dha 300 mg capsule (PNV-DHA) escitalopram oxalate 5 mg tablet 5 mg PO QDAY #30 tabs 09/24/24 Rx (Lexapro) norethindrone (contraceptive) 0.35 0.35 mg PO QDAY #84 tabs 5 09/24/24 Rx mg tablet (Senia) : Yes [facility] Medical History Adopted depression Depression delivery delivered Borderline personality disorder Marijuana abuse Uterine anomaly Trauma Anxiety History of asthma History of back pain History of anemia Social History adopted: Yes household members: significant other, children and other details: JOSELYN Luciano (has two kids Ryan Khan lives with his mom) [facility] housing: house number of children: 2 current occupational status: other current occupation: [employer] current occupational exposures/hazards: No pets and animals: [...] in: walking frequency: 1-2 times per week yesenia/mosque: None seatbelt use: always do you feel safe at home: Yes additional [facility]: [facility] 2 Elective abortions Hx Para 2 Spontaneous abortions Hx # Term Pregnancies 2 Ectopic pregnancies Hx # Pregnancies Multiple births # of living children 2 Past Pregnancies Del. Date Name GA/Weeks Outcome Route Bth Weight Infant Gen Labor Lgth Anesthesia Del Locatn Provider FOB 04/29/23 Jason 39 live - full term 6lbs 12oz Male [facility] Mustapha Luciano 08/12/24 Janusz 38 live - full term 6lb 1oz Female general [facility] DELPHINE ALVES Mustapha Delivery Date: 04/29/23 Last Updated by: Dee Dee Dejesus [facility] nrfs Delivery Date: 08/12/24 Last Updated by: Katelyn Garcia, RN rltcs 38 uterine rupture girl janusz [...] somewhat difficult Source: Developed by Drs. Iban Gates, Cassandra Marin, Jesse Tobar and colleagues, with an educational alber from [employer]. Post HPI Routine Follow-Up: Details: DAVID POST is a 33 year old who presents for her post visit. Her has not been as (more content not included)... 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 Katelin Sotelo DO Age/Sex: 33/F [place] [facility] [place]: Signed Intake Vital Signs 05/27/24 14:51 08/11/24 20:18 08/27/24 10:11 Height 5 ft 5 in 5 ft 3 in 5 ft 3 in Weight: 166 lb 4 oz BMI 29.4 BP 114/75 Intake Visit Reasons: 2 wk RLTCS Chief Complaint: 2w incision check Bin Worker Required: No Is patient in pain?: No [...] kids Ryan [facility] his mom[facility] house number of children: 2 current occupational status: other current occupation: [employer] current occupational exposures/hazards: No pets and animals: [...] in: walking frequency: 1-2 times per week yesenia/mosque: None seatbelt use: always do you feel safe at home: Yes additional social history: [facility] 2 wk RLTCS Details: DAVID POST is [...] live - full term 6lbs 12oz Male [facility] Mustapha Luciano 08/12/24 Janusz 38 live - full term 6lb 1oz Female general [facility] DELPHINE Luciano Delivery Date: 04/29/23 Last Updated by: Dee Dee Dejesus [facility] Delivery Date: 08/12/24 Last Updated by: Katelyn Garcia RN rltcs 38 uterine rupture girl janusz JASVIR ENT ENT: Reports system reviewed and no [...] Plan (1) delivery delivered: Status: Acute Comment: RLTCS uterine rupture girl janusz 38 SM Plan: healing well without complaints. rto in weeks for exam 08/27/24 1112 Date Katelinfreddie Garrett Nikia Moore Signature: Date (if applicable) CC: Normal [facility] Opiates, Ur Confirmon 2024 OPIATES,UR Negative Normal Mcexht=714 [facility] Comment on above: Order Comment: UNK Result Comment: Opia te test includes Codeine and Morphine only. Performed By: #### L 3410.9994, L3965.4700 #### [facility] [address] [place], [place], [id number] L3410.9994on 08-15-2024 [facility] [place], [place]. 2 COMMENT Normal . [facility] Comment on above: Order Comment: [id number] Confirm urine THC - RT Result Comment: Perf ormed at: - [facility] [address] [id number] Top Spotter: William Goodman PhD, Phone: [phone] Performed By: #### L 3410.9994, L3380.5700 #### [facility] [address] [place], [address] CBC-Complete Blood Cnt No Di ffon 08-13-2024 HCT Normal 37-47 [facility] Comment on above: Order Comment: Comme nts: Day #1 Reason for Laboratory Test Result Comment: Canc elled via OM: Order edited - Discontinuing original order Performed By: #### L 100.0500 #### [facility] [address] [place], [address] HGB Normal 12.0-15.0 [facility] Comment on above: Order Comment: Comme nts: Day #1 Reason for Laboratory Test Result Comment: Canc elled via OM: Order edited - Discontinuing original order Performed By: #### L 100.0500 #### [facility] [address] [place], [address] MCH Normal 27.0-32.0 [facility] Comment on above: Order Comment: Comme nts: Day #1 Reason for Laboratory Test Result Comment: Canc elled via OM: Order edited - Discontinuing original order Performed By: #### L 100.0500 #### [facility] [address] [place], [address] MCHC Normal 32-36 [facility] Comment on above: Order Comment: Comme nts: Day #1 Reason for Laboratory Test Result Comment: Canc elled via OM: Order edited - Discontinuing original order Performed By: #### L 100.0500 #### [facility] [address] [place], [address] MCV Normal 81-99 [facility] Comment on above: Order Comment: Comme nts: Day #1 Reason for Laboratory Test Result Comment: Canc elled via OM: Order edited - Discontinuing original order Performed By: #### L 100.0500 #### [facility] [address] [place], [address] PLT Normal 150-450 [facility] Comment on above: Order Comment: Comme nts: Day #1 Reason for Laboratory Test Result Comment: Canc elled via OM: Order edited - Discontinuing original order Performed By: #### L 100.0500 #### [facility] [address] [place], [address] RBC Normal 4.2-5.4 [facility] Comment on above: Order Comment: Comme nts: Day #1 Reason for Laboratory Test Result Comment: Canc elled via OM: Order edited - Discontinuing original order Performed By: #### L 100.0500 #### [facility] [address] [place], [address] RDW CV Normal 11.6-14.6 [facility] Comment on above: Order Comment: Comme nts: Day #1 Reason for Laboratory Test Result Comment: Canc elled via OM: Order edited - Discontinuing original order Performed By: #### L 100.0500 #### [facility] [address] [place], [address] RDW SD Normal 35.1-43.9 [facility] Comment on above: Order Comment: Comme nts: Day #1 Reason for Laboratory Test Result Comment: Canc elled via OM: Order edited - Discontinuing original order Performed By: #### L 100.0500 #### [facility] [address] [place], [address] WBC Normal 4.4-11.0 [facility] Comment on above: Order Comment: Comme nts: Day #1 Reason for Laboratory Test Result Comment: Canc elled via OM: Order edited - Discontinuing original order Performed By: #### L 100.0500 #### [facility] [address] [place], [address] Urine opiates detectionOrder ed By: Meena Luciano on 08-13-2024 Opiates Ql (U) Negative Soskmj=193 [facility] Comment on above: Opiate test includes Codeine and Morphine only. Amphetamine detection with 1 000 ng/mL as cutoffOrdered By: Meena Luciano on 08-12-2024 Amphetamines Screen method >1000 ng/mL Ql (U) Negative < 200 ng/mL [facility] CBC W/Diff, Automatedon Absolute Lymph 1.10 X10 3/uL Normal 0.83-4.51 [facility] Comment on above: Performed By: #### M 100.2200, L505.5000, L7000.1800 #### [facility] [address] [place], [address] Absolute Neut 19.3 X10 3/uL High 2.0-7.7 [facility] Comment on above: Performed By: #### M 100.2200, L505.5000, L7000.1800 #### [facility] [address] [place], [address] Basophils/100 WBC (Bld) 0.1 % Normal 0-1 [facility] Comment on above: Performed By: #### M 100.2200, L505.5000, L7000.1800 #### [facility] [address] [place], [address] Eosinophils/100 WBC (Bld) 0.1 % Normal 0-5 [facility] Comment on above: Performed By: #### M 100.2200, L505.5000, L7000.1800 #### [facility] [address] [place], [address] Erythrocyte distribution width (RBC) [Ratio] 12.7 % Normal 11.6-14.6 [facility] Comment on above: Performed By: #### M 100.2200, L505.5000, L7000.1800 #### [facility] [address] [place], [address] Hematocrit (Bld) [Volume fraction] 38.0 % Normal 37-47 [facility] Comment on above: Performed By: #### M 100.2200, L505.5000, L7000.1800 #### [facility] [address] [place], [address] Hemoglobin (Bld) [Mass/Vol] 13.8 g/dL Normal 12.0-15.0 [facility] Comment on above: Performed By: #### M 100.2200, L505.5000, L7000.1800 #### [facility] [address] [place], [address] IG% 0.600 Normal 0.0-0.9 [facility] Comment on above: Result Comment: IG% - Immature Granulocytes (promyelocytes, myelocytes and metamyelocytes) > 1% indicates that a LEFT SHIFT is Present. Performed By: #### M 100.2200, L505.5000, L7000.1800 #### [facility] [address] [place], [address] Lymphocytes/100 WBC (Bld) 5.1 % Low 19-41 [facility] Comment on above: Performed By: #### M 100.2200, L505.5000, L7000.1800 #### [facility] [address] [place], [address] MCH (RBC) [Entitic mass] 32.7 pg High 27.0-32.0 [facility] Comment on above: Performed By: #### M 100.2200, L505.5000, L7000.1800 #### [facility] [address] [place], [address] MCHC (RBC) [Mass/Vol] 36.3 g/dL High 32-36 [facility] Comment on above: Performed By: #### M 100.2200, L505.5000, L7000.1800 #### [facility] [address] [place], [address] MCV (RBC) [Entitic vol] 90.0 fL Normal 81-99 [facility] Comment on above: Performed By: #### M 100.2200, L505.5000, L7000.1800 #### [facility] [address] [place], [address] Monocytes/100 WBC (Bld) 4.9 % Normal 0-10 [facility] Comment on above: Performed By: #### M 100.2200, L505.5000, L7000.1800 #### [facility] [address] [place], [address] Neutrophils/100 WBC (Bld) 89.2 % High 47-70 [facility] Comment on above: Performed By: #### M 100.2200, L505.5000, L7000.1800 #### [facility] [address] [place], [address] Nucleated RBC (Bld) [#/Vol] 0 10*3/uL Normal 0-5 [facility] Comment on above: Performed By: #### M 100.2200, L505.5000, L7000.1800 #### [facility] [address] [place], [address] Platelet mean volume (Bld) [Entitic vol] 11.2 fL Normal 6.2-12.0 [facility] Comment on above: Performed By: #### M 100.2200, L505.5000, L7000.1800 #### [facility] [address] [place], [address] Platelets (Bld) [#/Vol] 229 10*3/uL Normal 150-450 [facility] Comment on above: Performed By: #### M 100.2200, L505.5000, L7000.1800 #### [facility] [address] [place], [address] RBC (Bld) [#/Vol] 4.22 10*6/uL Normal 4.2-5.4 [facility] Comment on above: Performed By: #### M 100.2200, L505.5000, L7000.1800 #### [facility] [address] [place], [address] RDW SD 41.6 fl Normal 35.1-43.9 [facility] Comment on above: Performed By: #### M 100.2200, L505.5000, L7000.1800 #### [facility] [address] [place], [address] WBC (Bld) [#/Vol] 21.6 10*3/uL High 4.4-11.0 [facility] Comment on above: Performed By: #### M 100.2200, L505.5000, L7000.1800 #### [facility] [address] [place], [address] CBC-Complete Blood Cnt No Di ffon 08-12-2024 Erythrocyte distribution width (RBC) [Ratio] 12.8 % Normal 11.6-14.6 [facility] Comment on above: Order Comment: [id number] Confirm urine THC - RT Performed By: #### L 3410.9994, L3380.9100 #### [facility] [address] [place], [address] Hematocrit (Bld) [Volume fraction] 31.8 % Low 37-47 [facility] Comment on above: Order Comment: [id number] Confirm urine THC - RT Performed By: #### L 3410.9994, L3380.9100 #### [facility] [address] [place], [address] Hemoglobin (Bld) [Mass/Vol] 11.2 g/dL Low 12.0-15.0 [facility] Comment on above: Order Comment: [id number] 5 Confirm urine THC - RT Performed By: #### L 3410.9994, L3380.9100 #### [facility] [address] [place], [address] MCH (RBC) [Entitic mass] 32.4 pg High 27.0-32.0 [facility] Comment on above: Order Comment: [id number] 5 Confirm urine THC - RT Performed By: #### L 3410.9994, L3380.9100 #### [facility] [address] [place], [address] MCHC (RBC) [Mass/Vol] 35.2 g/dL Normal 32-36 [facility] Comment on above: Order Comment: [id number] 5 Confirm urine THC - RT Performed By: #### L 3410.9994, L3380.9100 #### [facility] [address] [place], [address] MCV (RBC) [Entitic vol] 91.9 fL Normal 81-99 [facility] Comment on above: Order Comment: [id number] Confirm urine THC - RT Performed By: #### L 3410.9994, L3380.9100 #### [facility] [address] [place], [address] Platelet mean volume (Bld) [Entitic vol] 10.8 fL Normal 6.2-12.0 [facility] Comment on above: Order Comment: [id number] Confirm urine THC - RT Performed By: #### L 3410.9994, L3380.9100 #### [facility] [address] [place], [address] Platelets (Bld) [#/Vol] 175 10*3/uL Normal 150-450 [facility] Comment on above: Order Comment: [id number] Confirm urine THC - RT Performed By: #### L 3410.9994, L3380.9100 #### [facility] [address] [place], [address] RBC (Bld) [#/Vol] 3.46 10*6/uL Low 4.2-5.4 [facility] Comment on above: Order Comment: [id number] Confirm urine THC - RT Performed By: #### L 3410.9994, L3380.9100 #### [facility] [address] [place], [address] RDW SD 41.8 fl Normal 35.1-43.9 [facility] Comment on above: Order Comment: [id number] 5 Confirm urine THC - RT Performed By: #### L 3410.9994, L3380.9100 #### [facility] [address] [place], [address] WBC (Bld) [#/Vol] 20.2 10*3/uL High 4.4-11.0 [facility] Comment on above: Order Comment: [id number] Confirm urine THC - RT Performed By: #### L 3410.9994, L3380.9100 #### [facility] [address] [place], [address] Comprehensive Metabolic Prof ilon 08-12-2024 Albumin [Mass/Vol] 3.5 g/dL Normal 3.5-5.0 [facility] Comment on above: Performed By: #### L 509.8002, L500.4050 #### [facility] [address] [place], [address] Albumin/Globulin [Mass ratio] 0.7 {ratio} Low 0.9-2.4 [facility] Comment on above: Performed By: #### L 509.8002, L500.4050 #### [facility] [address] [place], [address] ALK PHOS 299 U/L High 35-104 [facility] Comment on above: Performed By: #### L 509.8002, L500.4050 #### [facility] [address] [place], [address] ALT [Catalytic activity/Vol] 20 U/L Normal <=34 [facility] Comment on above: Performed By: #### L 509.8002, L500.4050 #### [facility] [address] [place], [address] AST [Catalytic activity/Vol] 26 U/L Normal <=31 [facility] Comment on above: Performed By: #### L 509.8002, L500.4050 #### [facility] [address] [place], [address] Bilirubin [Mass/Vol] 0.39 mg/dL Normal 0.00-1.30 [facility] Comment on above: Performed By: #### L 509.8002, L500.4050 #### [facility] [address] [place], [address] BUN/CRE 20.6 RATIO High 10-20 [facility] Comment on above: Performed By: #### L 509.8002, L500.4050 #### [facility] [address] [place], [address] Calcium [Mass/Vol] 8.9 mg/dL Normal 7.6-11.0 [facility] Comment on above: Performed By: #### L 509.8002, L500.4050 #### [facility] [address] [place], [address] Chloride [Moles/Vol] 104 mmol/L Normal 98-108 [facility] Comment on above: Performed By: #### L 509.8002, L500.4050 #### [facility] [address] [place], [address] CO2 [Moles/Vol] 13.9 mmol/L Low 21.0-32.0 [facility] Comment on above: Performed By: #### L 509.8002, L500.4050 #### [facility] [address] [place], [address] Creatinine [Mass/Vol] 0.63 mg/dL Low 0.70-1.20 [facility] Comment on above: Performed By: #### L 509.8002, L500.4050 #### [facility] [address] [place], [address] ECRCL 131.80 ml/min Normal 50-250 [facility] Comment on above: Performed By: #### L 509.8002, L500.4050 #### [facility] [address] [place], [address] GAP 16 High 5-15 [facility] Comment on above: Performed By: #### L 509.8002, L500.4050 #### [facility] [address] [place], [address] GFR/1.73 sq M.predicted among non-blacks MDRD (S/P/Bld) [Vol rate/Area] 120 mL/min/{1.73_m2} Normal >60 [facility] Comment on above: Result Comment: mL/m in/1.73m2 CKD-EPI Creatinine Equation (2020) Performed By: #### L 509.8002, L500.4050 #### [facility] [address] [place], [address] Globulin (S) [Mass/Vol] 4.7 g/dL High 2.2-4.2 [facility] Comment on above: Performed By: #### L 509.8002, L500.4050 #### [facility] [address] [place], [address] Glucose [Mass/Vol] 115 mg/dL High 70-99 [facility] Comment on above: Performed By: #### L 509.8002, L500.4050 #### [facility] [address] [place], [address] Potassium [Moles/Vol] 3.7 mmol/L Normal 3.3-5.1 [facility] Comment on above: Performed By: #### L 509.8002, L500.4050 #### [facility] [address] [place], [address] Sodium [Moles/Vol] 134 mmol/L Normal 133-145 [facility] Comment on above: Performed By: #### L 509.8002, L500.4050 #### [facility] [address] [place], [address] T PROT 8.2 g/dL Normal 5.9-8.4 [facility] Comment on above: Performed By: #### L 509.8002, L500.4050 #### [facility] [address] [place], [address] Urea nitrogen [Mass/Vol] 13 mg/dL Normal 4-19 [facility] Comment on above: Performed By: #### L 509.8002, L500.4050 #### [facility] [address] [place], [address] Discharge Instructionon Discharge Instruction [facility] Medical Records Department [address] [place] [address] Instructions for Home/Discharge Instructions 08/12/24 0118 MR#: [id number] Acct: [id number] Name: DAVID POST Rep #: [id number] : 1990 33 From: Meena Luciano MD [...] Up With: Meena Luciano MD When: Call [phone] to make an appointment for an incision [...] CC: No Primary Care Physician Signed Normal [facility] Erythrocyte distribution wid th ratioOrdered By: Meena Luciano on 08-12-2024 Erythrocyte distribution width (RBC) [Ratio] 12.8 % 11.6-14.6 [facility] Erythrocyte distribution wid th standard deviationOrdered By: Meena Luciano on 08-12-2024 Erythrocyte distribution width (RBC) [Ratio] 41.8 fl 35.1-43.9 [facility] Fibrinogenon 08-12-2024 FIBRINOGEN 448 mg/dl High 203-444 [facility] Comment on above: Performed By: #### L 3410.9994, L3380.9100 #### [facility] [address] [place], [address] H AND P Exam - OB/GYNon H&P Exam - CHANGE MANAGEMENT EXPERT [facility] Medical Records Department [address] [place] [address] H P Exam - CHANGE MANAGEMENT EXPERT 08/12/24 0101 MR#: [id number] Acct: [id number] Name: DAVID POST Rep #: [id number] : 1990 33 From: Meena Luciano MD PCP: Care Physician,No Primary Status:ADM IN Location: [id number] HPI - General General Date of Admission: [...] kids Ryan Khan lives with his mom) [facility] housing: house number of children: 2 current occupational status: other current occupation: [employer] current occupational exposures/hazards: No pets and animals: [...] in: walking frequency: 1-2 times per week yesenia/mosque: None seatbelt use: always do you feel safe at home: Yes additional social history: OTILIO Luciano- [facility] [employer] History 2 Elective abortions Hx Para 1 Spontaneous abortions Hx # Term Pregnancies 1 Ectopic pregnancies Hx # Pregnancies Multiple births # of living children 1 Past Pregnancies Del. Date Name GA/Weeks Outcome Route Bth Weight Gen Labor Lgth Anesthesia Del Locatn Provider FOB 04/29/23 Jason 39 live - full term 6lbs 12oz Male [facility] Mustapha Luciano Delivery Date: 04/29/23 Last Updated by: Dee Dee Dejesus [facility] Visit Details Expected Delivery Route/Plan R C/S [...] ?-???-???-???-???-???-? ??- Negative 147 -???-???-???-???-???-?? ?-???-???-???-???-???-? ??- MARIBETH pt was a bsent for a weeks due to insurance loss. She states that they have insurance now . new ob lab and NIPT ordered. unsure about rpt section vs trial of labor. 03/22/24 -???-???-???-???-???-?? ?-???-???-???-???-???-? ??- 18w 2d 175 lb (-6 lb) 108/67 Negative -???-???-???-???-???-?? ?-???-???-???-???-???-? ??- (more content not included)... Normal [facility] Hematocrit Auto (Bld) [Volum e fraction]Ordered By: Meena Luciano on 08-12-2024 Hematocrit (Bld) [Volume fraction] 31.8 % Low 37-47 [facility] Hemoglobin measurementOrdere d By: Meena Luciano on 08-12-2024 Hemoglobin (Bld) [Mass/Vol] 11.2 g/dL Low 12.0-15.0 [facility] MCV (mean corpuscular volume ) determinationOrdered By: Meena Luciano on 08-12-2024 MCV (RBC) [Entitic vol] 91.9 fL 81-99 [facility] Mean corpuscular hemoglobin (MCH) determinationOrdered By: Meena Luciano on 08-12-2024 MCH (RBC) [Entitic mass] 32.4 pg High 27.0-32.0 [facility] Mean corpuscular hemoglobin concentration (MCHC) determinationOrdered By: Meena Luciano on 08-12-2024 MCHC (RBC) [Mass/Vol] 35.2 g/dL 32-36 [facility] Mean platelet volume determi nationOrdered By: Meena Luciano on 08-12-2024 Platelet mean volume (Bld) [Entitic vol] 10.8 fL 6.2-12.0 [facility] No Panel InformationOrdered By: Meena Luciano on 08-12-2024 Urine Buprenorphine Qualitative Negative < 200 ng/mL [facility] Urine Oxycodone Screen Negative < 100 ng/mL [facility] Operative Reporton Operative Report [facility] Medical Records Department [address] [place] [address] Operative Report 08/12/24 0109 MR#: [id number] Acct: [id number] Name: SINCEREDAVID RENE Rep #: [id number] : 1990 33 From: Meena Luciano MD PCP: Care Physician,No Primary Status:ADM IN Location: [id number] Assessment Plan (1) delivery delivered: COMMENT: RLTCS [...] COMMENT: PRR, , MANUEL 07/04/24, girl Janusz JOSELYN Dickinson (6) : QUALIFIERS: Weeks of gestation: 38 weeks Qualified Code(s): Z3A.38 - 38 weeks gestation of COMMENT: NIPT with gender, declines carrier. nl anatomy (7) Borderline personality disorder: COMMENT: sees counselor (8) Uterine anomaly: COMMENT: tilted (9) ASCUS with positive high 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al: COMMENT: [place] done repeat pap 08/04 (10) Marijuana smoker: [...] shoulders without complication the rest of the infant delivered. The cord was clamped and cut and the was handed off to awaiting nurse. The [...] 3- 0 Monocryl in a running fashion. Hfmmuy-[id number]-[id number] suture was used on the rectus muscle [...] Vessels D (more content not included)... Normal [facility] Partial Thromboplast Timeon 08-12-2024 aPTT Coag (Bld) [Time] 29.6 s Normal 24.1-36.2 [facility] Comment on above: Performed By: #### L 3410.9994, L3380.9100 #### [facility] [address] [place], [address] Pathology Specimen OBon PATH. Spec OB SEE PATHOLOGY REPORT Normal [facility] Comment on above: Order Comment: [id number] Confirm urine THC - RT Result Comment: Spec imen submitted to Anatomical Pathology Department for testing. Performed By: #### L 3410.9994, L3380.9100 #### [facility] [address] [place], [place], [id number] Platelet countOrdered By: Janell Luciano on 08-12-2024 Platelets (Bld) [#/Vol] 175 10*3/uL 150-450 [facility] Prothrombin Time w/INRon INR Coag (PPP) [Relative time] 0.9 {INR} Normal [facility] Comment on above: Performed By: #### L 3410.9994, L3380.9100 #### [facility] [address] [place], [place], [id number] PT Coag (PPP) [Time] 11.8 s Normal 11.7-14.9 [facility] Comment on above: Performed By: #### L 3410.9994, L3380.9100 #### [facility] [address] [place], [place], [id number] Quantitative urine opiates m easurementOrdered By: Meena Luciano on 08-12-2024 Opiates Ql (U) Positive < 300 ng/mL [facility] Comment on above: If confirmation test ing is needed, a separate order will be required to send out testing to the reference laboratory. RBC Auto (Bld) [#/Vol]Ordere d By: Meena Luciano on 08-12-2024 RBC (Bld) [#/Vol] 3.46 10*6/uL Low 4.2-5.4 [facility] Screening urine fentanyl paulino surementOrdered By: Meena Luciano on 08-12-2024 fentaNYL Screen Ql (U) Negative [facility] Surgery Specimen Level Von 0 08-12-2024 Surgery Specimen Level V Patient Age/Sex Location Account Attending Physician DAVID POST 33/ [id number] Dr. Meena Luciano MD Specimen: [id number] Received: 08/12/24 Status: KEEGAN Jimenez Num: [id number] Spec Type: PLACENTA Subm Dr: Dr. Meena Luciano MD HEADER OPERATION: Repeat section PRE-OP DIAGNOSIS: Uterine rupture TISSUE SUBMITTED: A- Placenta MICROSCOPIC DIAGNOSIS A. Placenta, repeat section: * Eccentrically inserted and trivascular umbilical cord with acute funisitis * Marginally inserted membranes with acute chorioamnionitis * Mature (third trimester) placenta with acute chorioamnionitis and a 11.5 x 6.5 cm area of subchorionic hemorrage MICROSCOPIC DESCRIPTION Slides are reviewed. GROSS DESCRIPTION A. Received in formalin in a container labeled with the patient's name, date of , and with the accompanying paperwork indicating, placenta is a 16.0 x 14.0 x 3.0 cm estes discoid placenta with a trimmed weight of 298.3 g. The eccentrically located white-anderson umbilical cord exhibits 3 vessels and is 33 cm in length by 1.3 cm in diameter. There are approximately 7 coils per 10 cm. The membranes are anderson-pink, partially stripped, with a 100% marginal attachment site. The surface is pink-reyna with prominent vasculature and an 11.5 x 6.5 cm area of subchorionic hemorrhage (comprising approximately 25% of the surface). The maternal surface displays previously disrupted red-reyna cotyledons that appear predominantly complete. There is an abundance of easily removed blood clot material. Serial sections reveal that the subchorionic hemorrhage does not appear to extend into the underlying parenchyma. The cut surfaces are red, spongy, and congested. A 0.4 x 0.4 x 0.3 cm white-anderson and rubbery focus is identified at the maternal surface, comprising less than 2% of the overall surfaces. Carpet Mechanic sections:A1. Umbilical cord and membrane rollA2. Full-thickness section with subchorionic hemorrhageA3. Full-thickness section with rubbery focus at maternal surfaceA4. Full-thickness section [facility] 08-12-2024 CPT:13369 Patient Age/Sex Location Account Attending Physician DAVID POST 33/F [id number] Dr. Meena Luciano MD Signed (signature on file) Dr. Feliberto Fermin MD 09/20/24 1522 Normal [facility] Comment on above: Performed By: #### Adam 100.2200, L505.5000, L7000.1800 #### [facility] [address] [place], [place], [address] Syphilis Antibodieson 2024 Syphilis Abs Non-Reactive Normal Nonreactive [facility] Comment on above: Performed By: #### Adam 100.2200, L505.5000, L7000.1800 #### [facility] [address] [place], [address] Type AND Screenon 08-12-2024 Ab SCREEN GEL PENDING Normal [facility] Comment on above: Order Comment: Labor Performed By: #### M 100.2200, L505.5000, L7000.1800 #### [facility] [address] [place], [place], [address] ABO and Rh group Nom (Bld) Blood group O Rh(D) positive Normal [facility] Comment on above: Order Comment: Labor Performed By: ###Aleksandra Medina 100.2200, L505.5000, L7000.1800 #### [facility] [address] [place], [address] Urine Drug Screen (VISTA)on 08-12-2024 AMPHETAMINES Negative Normal <1000 ng/mL [facility] Comment on above: Order Comment: Marij uana Performed By: #### L 505.5000 #### [facility] [address] [place], [address] BARBITIURATES Negative Normal < 200 ng/mL [facility] Comment on above: Order Comment: Marij uana Performed By: #### L 505.5000 #### [facility] [address] [place], [address] BENZODIAZIPINE Negative Normal < 200 ng/mL [facility] Comment on above: Order Comment: Marij uana Performed By: #### L 505.5000 #### [facility] [address] [place], [place], [facility] Ur Drug Scr Negative Normal < 200 ng/mL [facility] Comment on above: Order Comment: Marij uana Performed By: #### L 505.5000 #### [facility] [address] [place] [address] COCAINE Negative Normal < 300 ng/mL [facility] Comment on above: Order Comment: Marij uana Performed By: #### L 505.5000 #### [facility] [address] [place], [address] Fentanyl Negative Normal [facility] Comment on above: Order Comment: Marij uana Performed By: #### L 505.5000 #### [facility] [address] [place], [address] METHADONE Negative Normal < 300 ng/mL [facility] Comment on above: Order Comment: Marij uana Performed By: #### L 505.5000 #### [facility] [address] [place], [place], [address] OPIATES Positive Normal < 300 ng/mL [facility] Comment on above: Order Comment: Marij uana Result Comment: If c onfirmation testing is needed, a separate order will be required to send out testing to the reference laboratory. Performed By: #### L 505.5000 #### [facility] [address] [place], [place], [address] OXYCODONE Negative Normal < 100 ng/mL [facility] Comment on above: Order Comment: Marij uana Performed By: #### L 505.5000 #### [facility] [address] [place], [place], [address] PCP Negative Normal < 25 ng/mL [facility] Comment on above: Order Comment: Marij uana Performed By: #### L 505.5000 #### [facility] [address] [place], [place], [address] THC Positive Normal < 50 ng/mL [facility] Comment on above: Order Comment: Marij uana Result Comment: If c onfirmation testing is needed, a separate order will be required to send out testing to the reference laboratory. Performed By: #### L 505.5000 #### [facility] [address] [place], [place], [address] Urine benzodiazepine levelOr dered By: Meena Luciano on 08-12-2024 Benzodiazepines Ql (U) Negative < 200 ng/mL [facility] Urine cocaine levelOrdered B y: Meena Luciano on 08-12-2024 Cocaine Ql (U) Negative < 300 ng/mL [facility] Urine puhfg-6-dhmkbrrlajxciw abinol (THC) measurementOrdered By: Meena Luciano on 08-12-2024 Cannabinoids Screen Ql (U) Positive < 50 ng/mL [facility] Comment on above: If confirmation test ing is needed, a separate order will be required to send out testing to the reference laboratory. Urine phencyclidine (PCP) de tectionOrdered By: Meena Luciano on 06-02-2025 Phencyclidine Ql (U) Negative < 25 ng/mL [facility] White blood cell (WBC) count Ordered By: Meena Luciano on 08-12-2024 WBC (Bld) [#/Vol] 20.2 10*3/uL High 4.4-11.0 [facility] Absolute lymphocyte countOrd ered By: Meena Luciano on 08-11-2024 Lymphocytes Auto (Unsp spec) [#/Vol] 1.10 10*3/uL 0.83-4.51 [facility] Absolute neutrophil countOrd ered By: Meena Luciano on 08-11-2024 Neutrophils (Bld) [#/Vol] 19.3 10*3/uL High 2.0-7.7 [facility] Activated partial thrombopla stin time (aPTT) in platelet poor plasma by coagulation aOrdered By: Meena Luciano on 08-11-2024 aPTT Coag (PPP) [Time] 29.6 s 24.1-36.2 [facility] Anion gap in Serum or Plasma Ordered By: Meena Luciano on 08-11-2024 Anion gap [Moles/Vol] 16 mmol/L High 5-15 [facility] Automated lymphocyte count a s percentage of total leukocytesOrdered By: Meena Luciano on 08-11-2024 Lymphocytes/100 WBC Auto (Unsp spec) 5.1 % Low 19-41 [facility] BUN/creatinine ratioOrdered By: Meena Luciano on 08-11-2024 Urea nitrogen/Creatinine [Mass ratio] 20.6 mg/mg High 10-20 [facility] Basophil percentageOrdered B y: Meena Luciano on 08-11-2024 Basophils/100 WBC (Bld) 0.1 % 0-1 [facility] Bilirubin, totalOrdered By: Meena Luciano on 08-11-2024 Bilirubin [Mass/Vol] 0.39 mg/dL 0.00-1.30 [facility] Carbon dioxide, total [Moles /volume] in Central venous bloodOrdered By: Meena Luciano on 08-11-2024 CO2 [Moles/Vol] 13.9 mmol/L Low 21.0-32.0 [facility] Chloride assayOrdered By: Janell Luciano on 08-11-2024 Chloride [Moles/Vol] 104 mmol/L 98-108 [facility] Eosinophil percentageOrdered By: Meena Luciano on 08-11-2024 Eosinophils/100 WBC (Bld) 0.1 % 0-5 [facility] Glomerular filtration rate ( GFR) estimation/1.73 sq m using serum, plasma, or whole bOrdered By: Meena Luciano on 08-11-2024 GFR/1.73 sq M.predicted among non-blacks MDRD (S/P/Bld) [Vol rate/Area] 120 mL/min/{1.73_m2} >60 [facility] Comment on above: mL/min/1.73m2 CKD-EP I Creatinine Equation (2020) Immature granulocytes/100 WB C Auto (Bld)Ordered By: Meena Luciano on 08-11-2024 Immature granulocytes/100 WBC (Bld) 0.600 % 0.0-0.9 [facility] Comment on above: IG% - Immature Granu locytes (promyelocytes, myelocytes and metamyelocytes) > 1% indicates that a LEFT SHIFT is Present. International normalized rat io (INR) calculationOrdered By: Meena Luciano on 08-11-2024 INR Coag (Bld) [Relative time] 0.9 {INR} [facility] - Chemistry and C hemistry - challengeOrdered By: Meena Luciano on 08-11-2024 AST [Catalytic activity/Vol] 26 U/L <32 [facility] Monocyte percentageOrdered B y: Meena Luciano on 08-11-2024 Monocytes/100 WBC (Bld) 4.9 % 0-10 [facility] Neutrophil percentageOrdered By: Meena Luciano on 08-11-2024 Neutrophils/100 WBC (Bld) 89.2 % High 47-70 [facility] Nucleated red blood cell per centageOrdered By: Meena Luciano on 08-11-2024 Nucleated RBC/100 WBC (Bld) [Ratio] 0 % 0-5 [facility] Potassium measurement (mass/ volume)Ordered By: Meena Luciano on 08-11-2024 Potassium (Unsp spec) [Mass/Vol] 3.7 mmol/L 3.3-5.1 [facility] Prothrombin timeOrdered By: Meena Luciano on 08-11-2024 PT Coag (PPP) [Time] 11.8 s 11.7-14.9 [facility] Serum creatinine measurement (mass/volume)Ordered By: Meena Luciano on 08-11-2024 Creatinine [Mass/Vol] 0.63 mg/dL Low 0.70-1.20 [facility] Serum globulin measurementOr dered By: Meena Luciano on 08-11-2024 Globulin (S) [Mass/Vol] 4.7 g/dL High 2.2-4.2 [facility] Serum glucose measurement (m ass/volume)Ordered By: Meena Luciano on 08-11-2024 Glucose [Mass/Vol] 115 mg/dL High 70-99 [facility] Serum or plasma alanine drummond otransferase (ALT) measurementOrdered By: Meena Luciano on 08-11-2024 ALT [Catalytic activity/Vol] 20 U/L <35 [facility] Serum or plasma albumin kamilah urement (mass/volume)Ordered By: Meena Luciano on 08-11-2024 Albumin [Mass/Vol] 3.5 g/dL 3.5-5.0 [facility] Serum or plasma albumin/glob ulin mass ratioOrdered By: Meena Luciano on 08-11-2024 Albumin/Globulin [Mass ratio] 0.7 {ratio} Low 0.9-2.4 [facility] Serum or plasma alkaline kori sphatase measurementOrdered By: Meena Luciano on 08-11-2024 ALP [Catalytic activity/Vol] 299 U/L High 35-104 [facility] Serum or plasma calcium kamilah urement (mass/volume)Ordered By: Meena Luciano on 08-11-2024 Calcium [Mass/Vol] 8.9 mg/dL 7.6-11.0 [facility] Serum or plasma urea nitroge n measurement (mass/volume)Ordered By: Meena Luciano on 08-11-2024 Urea nitrogen [Mass/Vol] 13 mg/dL 4-19 [facility] Sodium levelOrdered By: Dani Luciano on 08-11-2024 Sodium [Moles/Vol] 134 mmol/L 133-145 [facility] Total proteinOrdered By: Steve napoles Mustapha on 08-11-2024 Protein [Mass/Vol] 8.2 g/dL 5.9-8.4 [facility] Laboratory - Chemistry and C hemistry - challengeOrdered By: Anna Marin on 08-08-2024 Glucose Ql (U) Negative [facility] Laboratory - UrinalysisOrder ed By: Anna Marin on 08-08-2024 Protein Ql (U) Negative [facility] [employer] Office Visit Reporton 08-08-2024 [employer] Office Visit Report [facility], [address] [place] [address] OFFICE VISIT Date of Service: 08/08/24 MR#: [id number] Acct: [id number] Name: DAVID POST Rep #: [id number] : 1990 Provider: REECE [facility] Age/Sex: 33/F [place] [facility]: Signed Intake Vital Signs 07/12/24 10:04 08/02/24 11:21 08/08/24 09:09 Height 5 ft 5 in 5 ft 5 in 5 ft 5 in Weight: 194 lb 4 oz BMI 32.3 BP 131/78 H Intake Visit Reasons: 38 wk ob Chief Complaint: 38wk OB Bin Worker Required: No Is patient in pain?: No [...] kids Ryan Khan lives with his mom) [facility] housing: house number of children: 2 current occupational status: other current occupation: [employer] current occupational exposures/hazards: No pets and animals: [...] in: walking frequency: 1-2 times per week yesenia/mosque: None seatbelt use: always do you feel safe at home: Yes additional social history: [facility] History 2 Elective abortions Hx Para 1 Spontaneous abortions Hx # Term Pregnancies 1 Ectopic pregnancies Hx # Pregnancies Multiple births # of living children 1 Past Pregnancies Del. Date Name GA/Weeks Outcome Route Bth Weight Gen Labor Lgth Anesthesia Del Locatn Provider FOB 04/29/23 Jason 39 live - full term 6lbs 12oz Male [facility] Mustapha Luciano Delivery Date: 04/29/23 Last Updated by: Dee Dee Dejesus [facility] nrfhts HPI 38 wk ob Details: [...] states th (more content not included)... Normal [facility] Laboratory - Chemistry and C hemistry - challengeOrdered By: Anna Marin on 08-02-2024 Glucose Ql (U) Negative [facility] Laboratory - UrinalysisOrder ed By: Anna Marin on 08-02-2024 Protein Ql (U) Negative [facility] [employer] Office Visit Reporton 08-02-2024 [employer] Office Visit Report [facility]'s [address], [address] [place] [address] OFFICE VISIT Date of Service: 08/02/24 MR#: [id number] Acct: [id number] Name: DAVID POST Rep #: [id number] : 1990 Provider: REECE Donis ams Age/Sex: 33/F [place] [facility]: Signed Intake Vital Signs 07/12/24 10:04 07/22/24 10:21 08/02/24 11:21 Height 5 ft 5 in 5 ft 5 in 5 ft 5 in Weight: 192 lb 4 oz BMI 32.0 BP 129/81 H Intake Visit Reasons: 37 wk ob Chief Complaint: 37wk OB Bin Worker Required: No Is patient in pain?: No [...] kids Ryan Khan lives with his mom) [facility] housing: house number of children: 2 current occupational status: other current occupation: [employer] current occupational exposures/hazards: No pets and animals: [...] in: walking frequency: 1-2 times per week yesenia/mosque: None seatbelt use: always do you feel safe at home: Yes additional [facility]: [facility] Elective abortions Hx Para 1 Spontaneous abortions Hx # Term Pregnancies 1 Ectopic pregnancies Hx # Pregnancies Multiple births # of living children 1 Past Pregnancies Del. Date Name GA/Weeks Outcome Route Bth Weight Infant Gen Labor Lgth Anesthesia Del Locatn Provider FOB 04/29/23 Jason 39 live - full term 6lbs 12oz Male [facility] Mustapha Luciano Delivery Date: 04/29/23 Last Updated by: Dee Dee Dejesus [facility] nrfhts HPI 37 wk ob Details: [...] states th (more content not included)... Normal [facility] Laboratory - Chemistry and C hemistry - challengeOrdered By: Katelin Montejo on 07-22-2024 Glucose Ql (U) Negative [facility] Laboratory - UrinalysisOrder ed By: Katelin Montejo on 07-22-2024 Protein Ql (U) Negative [facility] [employer] Office Visit Reporton 07-22-2024 [employer] Office Visit Report [facility] [address], [address] [place] [address] OFFICE VISIT Date of Service: 07/22/24 MR#: [id number] Acct: [id number] Name: DAVID POST Rep #: [id number] : 1990 Provider: Dr. Katelin Sotelo, Age/Sex: 33/F [place] [facility] Status: Signed Intake Vital Signs 06/14/24 14:49 07/12/24 10:04 07/22/24 10:21 07/22/24 10:21 Height 5 ft 5 in 5 ft 5 in 5 ft 5 in 5 ft 5 in Weight: 184 lb 4 oz BMI 30.7 BP 118/73 Intake Visit Reasons: 36wk ob Bin Worker Required: No Is patient in pain?: No [...] kids Ryan Khan lives with his mom) [facility] Jason housing: house number of children: 2 current occupational status: other current occupation: [employer] current occupational exposures/hazards: No pets and animals: [...] in: walking frequency: 1-2 times per week yesenia/mosque: None seatbelt use: always do you feel safe at home: Yes additional social history: [facility] History 2 Elective abortions Hx Para 1 Spontaneous abortions Hx # Term Pregnancies 1 Ectopic pregnancies Hx # Pregnancies Multiple births # of living children 1 Past Pregnancies Del. Date Name GA/Weeks Outcome Route Bth Weight Gen Labor Lgth Anesthesia Del Locatn Provider FOB 04/29/23 Jason 39 live - full term 6lbs 12oz Male [facility] Mustapha Luciano Delivery Date: 04/29/23 Last Updated by: Dee Dee Dejesus [facility] nrfhts HPI 36wk ob Details: DAVID [...] was a (more content not included)... Normal [facility] Laboratory - Chemistry and C hemistry - challengeOrdered By: Anna Marin on 07-12-2024 Glucose Ql (U) Negative [facility] Laboratory - UrinalysisOrder ed By: Anna Marin on 07-12-2024 Protein Ql (U) Negative [facility] [employer] Office Visit Reporton 07-12-2024 [employer] Office Visit Report [facility]'s [address], [address] [place] [address] OFFICE VISIT Date of Service: 07/12/24 MR#: [id number] Acct: [id number] Name: DAVID POST Rep #: [id number] : 1990 Provider: REECE Donis ams Age/Sex: 33/F [place] [facility] Status: Signed Intake Vital Signs 06/14/24 14:49 06/24/24 14:26 07/12/24 10:04 Height 5 ft 5 in 5 ft 5 in 5 ft 5 in Weight: 182 lb 183 lb 6 oz 188 lb 2 oz BMI 30.2 30.5 31.3 BP 129/78 H 120/73 116/73 Intake Visit Reasons: 34wk ob Chief Complaint: 34wk OB Bin Worker Required: No Is patient in pain?: No [...] 2 current occupational status: other current occupation: [employer] current occupational exposures/hazards: No pets and animals: [...] in: walking frequency: 1-2 times per week yesenia/mosque: None seatbelt use: always do you feel safe at home: Yes additional social history: [facility] History 2 Elective abortions Hx Para 1 Spontaneous abortions Hx # Term Pregnancies 1 Ectopic pregnancies Hx # Pregnancies Multiple births # of living children 1 Past Pregnancies Del. Date Name GA/Weeks Outcome Route Bth Weight Infant Gen Labor Lgth Anesthesia Del Locatn Provider FOB 04/29/23 Jason 39 live - full term 6lbs 12oz Male [facility] Mustapha Luciano Delivery Date: 04/29/23 Last Updated by: Dee Dee Dejesus [facility] nrfhts HPI 34wk ob Details: DAVID [...] a w (more content not included)... Normal [facility] Laboratory - Chemistry and C hemistry - challengeOrdered By: Anna Marin on 06-24-2024 Glucose Ql (U) Negative [facility] Laboratory - UrinalysisOrder ed By: Anna Marin on 06-24-2024 Protein Ql (U) Negative [facility] [employer] Office Visit Reporton 06-24-2024 [employer] Office Visit Report [facility]'s [address], [address] [place] [address] OFFICE VISIT Date of Service: 06/24/24 MR#: [id number] Acct: [id number] Name: DAVID POST Rep #: [id number] : 1990 Provider: REECE Donis ams Age/Sex: 33/F [place] [facility] Status: Signed Intake Vital Signs 06/14/24 14:49 06/24/24 14:26 Height 5 ft 5 in 5 ft 5 in Weight: 183 lb 6 oz BMI 30.5 BP 120/73 Intake Visit Reasons: 32wk ob Chief Complaint: 32wk ob Bin Worker Required: No Is patient in pain?: No [...] kids Ryan Khan lives with his mom) [facility] housing: house number of children: 2 current occupational status: other current occupation: [employer] current occupational exposures/hazards: No pets and animals: [...] in: walking frequency: 1-2 times per week yesenia/mosque: None seatbelt use: always do you feel safe at home: Yes additional social history: [facility] History 2 Elective abortions Hx Para 1 Spontaneous abortions Hx # Term Pregnancies 1 Ectopic pregnancies Hx # Pregnancies Multiple births # of living children 1 Past Pregnancies Del. Date Name GA/Weeks Outcome Route Bth Weight Infant Gen Labor Lgth Anesthesia Del [facility] Provider FOB 04/29/23 Jason 39 live - full term 6lbs 12oz Male [facility] Mustapha Luciano Delivery Date: 04/29/23 Last Updated by: Dee Dee Dejesus [facility] nrfhts HPI 32wk ob Details: DAVID [...] . ne (more content not included)... 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 Meena amezquita MD Age/Sex: 33/F [place] [facility]: Signed Intake Vital Signs 02/23/24 09:41 05/27/24 14:51 06/14/24 14:48 06/14/24 14:49 Height 5 ft 3 in 5 ft 5 in 5 ft 5 in 5 ft 5 in Weight: 182 lb BMI 30.2 BP 129/78 H Intake Visit Reasons: 30 wk ob Bin Worker Required: No Is patient in pain?: Yes [...] kids Ryan Khan lives with his mom) [facility] housing: house number of children: 2 current occupational status: other current occupation: [employer] current occupational exposures/hazards: No pets and animals: [...] in: walking frequency: 1-2 times per week yesenia/mosque: None seatbelt use: always do you feel safe at home: Yes additional [facility]: [facility] 2 Elective abortions Hx Para 1 Spontaneous abortions Hx # Term Pregnancies 1 Ectopic pregnancies Hx # Pregnancies Multiple births # of living children 1 Past Pregnancies Del. Date Name GA/Weeks Outcome Route Bth Weight Infant Gen Labor Lgth Anesthesia Del Locatn Provider FOB 04/29/23 Jason 39 live - full term 6lbs 12oz Male [facility] Mustapha Luciano Delivery Date: 04/29/23 Last Updated by: Dee Dee Dejesus [facility] nrfhts HPI 30 wk ob Details: DAVID [...] 147 -???-???-???-?? (more content not included)... Normal [facility] Absolute lymphocyte countOrd ered By: Anna Marin on 05-27-2024 Lymphocytes Auto (Unsp spec) [#/Vol] 1.68 10*3/uL 0.83-4.51 [facility] Absolute neutrophil countOrd ered By: Anna Marin on 05-27-2024 Neutrophils (Bld) [#/Vol] 8.4 10*3/uL High 2.0-7.7 [facility] Automated lymphocyte count a s percentage of total leukocytesOrdered By: Anna Marin on 05-27-2024 Lymphocytes/100 WBC Auto (Unsp spec) 15.4 % Low 19-41 [facility] Basophil percentageOrdered B y: Anna Marin on 05-27-2024 Basophils/100 WBC (Bld) 0.4 % 0-1 [facility] CBC W/Diff, Automatedon 05-11 Absolute Lymph 1.68 X10 3/uL Normal 0.83-4.51 [facility] Comment on above: Performed By: #### M 100.2200, L505.5000, L7000.1800 #### [facility] [address] [place], [address] Absolute Neut 8.4 X10 3/uL High 2.0-7.7 [facility] Comment on above: Performed By: #### M 100.2200, L505.5000, L7000.1800 #### [facility] [address] [place], [address] Basophils/100 WBC (Bld) 0.4 % Normal 0-1 [facility] Comment on above: Performed By: #### M 100.2200, L505.5000, L7000.1800 #### [facility] [address] [place], [address] Eosinophils/100 WBC (Bld) 0.9 % Normal 0-5 [facility] Comment on above: Performed By: #### M 100.2200, L505.5000, L7000.1800 #### [facility] [address] [place], [address] Erythrocyte distribution width (RBC) [Ratio] 13.0 % Normal 11.6-14.6 [facility] Comment on above: Performed By: #### M 100.2200, L505.5000, L7000.1800 #### [facility] [address] [place], [address] Hematocrit (Bld) [Volume fraction] 34.6 % Low 37-47 [facility] Comment on above: Performed By: #### M 100.2200, L505.5000, L7000.1800 #### [facility] [address] [place], [address] Hemoglobin (Bld) [Mass/Vol] 12.0 g/dL Normal 12.0-15.0 [facility] Comment on above: Performed By: #### M 100.2200, L505.5000, L7000.1800 #### [facility] [address] [place], [address] IG% 0.600 Normal 0.0-0.9 [facility] Comment on above: Result Comment: IG% - Immature Granulocytes (promyelocytes, myelocytes and metamyelocytes) > 1% indicates that a LEFT SHIFT is Present. Performed By: #### M 100.2200, L505.5000, L7000.1800 #### [facility] [address] [place], [address] Lymphocytes/100 WBC (Bld) 15.4 % Low 19-41 [facility] Comment on above: Performed By: #### M 100.2200, L505.5000, L7000.1800 #### [facility] [address] [place], [address] MCH (RBC) [Entitic mass] 32.7 pg High 27.0-32.0 [facility] Comment on above: Performed By: #### M 100.2200, L505.5000, L7000.1800 #### [facility] [address] [place], [address] MCHC (RBC) [Mass/Vol] 34.7 g/dL Normal 32-36 [facility] Comment on above: Performed By: #### M 100.2200, L505.5000, L7000.1800 #### [facility] [address] [place], [address] MCV (RBC) [Entitic vol] 94.3 fL Normal 81-99 [facility] Comment on above: Performed By: #### M 100.2200, L505.5000, L7000.1800 #### [facility] [address] [place], [address] Monocytes/100 WBC (Bld) 6.1 % Normal 0-10 [facility] Comment on above: Performed By: #### M 100.2200, L505.5000, L7000.1800 #### [facility] [address] [place], [address] Neutrophils/100 WBC (Bld) 76.6 % High 47-70 [facility] Comment on above: Performed By: #### M 100.2200, L505.5000, L7000.1800 #### [facility] [address] [place], [address] Nucleated RBC (Bld) [#/Vol] 0 10*3/uL Normal 0-5 [facility] Comment on above: Performed By: #### M 100.2200, L505.5000, L7000.1800 #### [facility] [address] [place], [address] Platelet mean volume (Bld) [Entitic vol] 10.4 fL Normal 6.2-12.0 [facility] Comment on above: Performed By: #### M 100.2200, L505.5000, L7000.1800 #### [facility] [address] [place], [address] Platelets (Bld) [#/Vol] 274 10*3/uL Normal 150-450 [facility] Comment on above: Performed By: #### M 100.2200, L505.5000, L7000.1800 #### [facility] [address] [place], [address] RBC (Bld) [#/Vol] 3.67 10*6/uL Low 4.2-5.4 [facility] Comment on above: Performed By: #### M 100.2200, L505.5000, L7000.1800 #### [facility] [address] [place], [address] RDW SD 45.1 fl High 35.1-43.9 [facility] Comment on above: Performed By: #### M 100.2200, L505.5000, L7000.1800 #### [facility] [address] [place], [address] WBC (Bld) [#/Vol] 10.9 10*3/uL Normal 4.4-11.0 [facility] Comment on above: Performed By: #### M 100.2200, L505.5000, L7000.1800 #### [facility] [address] [place], [place], [address] Eosinophil percentageOrdered By: Anna Marin on 05-27-2024 Eosinophils/100 WBC (Bld) 0.9 % 0-5 [facility] Erythrocyte distribution wid th ratioOrdered By: Anna Marin on 05-27-2024 Erythrocyte distribution width (RBC) [Ratio] 13.0 % 11.6-14.6 [facility] Erythrocyte distribution wid th standard deviationOrdered By: Anna Marin on 05-27-2024 Erythrocyte distribution width (RBC) [Entitic vol] 45.1 fL High 35.1-43.9 [facility] Erythrocyte distribution width (RBC) [Ratio] 45.1 fl High 35.1-43.9 [facility] Glucose Challenge Gest 1H 50 kandace 05-27-2024 GLU GEST 50g 1H 96 mg/dL Normal 70-140 [facility] Comment on above: Performed By: #### M 100.2200, L505.5000, L7000.1800 #### [facility] [address] [place], [place], [address] Glucose measurement at 2 neela rs post-dose gestational glucose tolerance testOrdered By: Anna Marin on 05-27-2024 Glucose [Mass/Vol] 96 mg/dL 70-140 [facility] Hematocrit Auto (Bld) [Volum e fraction]Ordered By: Anna Marin on 05-27-2024 Hematocrit (Bld) [Volume fraction] 34.6 % Low 37-47 [facility] Hemoglobin measurementOrdere d By: Anna Marin on 05-27-2024 Hemoglobin (Bld) [Mass/Vol] 12.0 g/dL 12.0-15.0 [facility] Immature granulocytes/100 WB C Auto (Bld)Ordered By: Anna Marin on 05-27-2024 Immature granulocytes/100 WBC (Bld) 0.600 % 0.0-0.9 [facility] Comment on above: IG% - Immature Granu locytes (promyelocytes, myelocytes and metamyelocytes) > 1% indicates that a LEFT SHIFT is Present. L3890.6006on 05-27-2024 HIV Non-Reactive Normal Nonreactive [facility] Comment on above: Result Comment: Non- Reactive Reactive Repeatedly reactive samples must be confirmed according to CDC recommended confirmatory algorithms. The subresults for either HIVAG or AHIV can be used as an aid in the selection of the confirmation algorithm for reactive samples. Send out specimens with Reactive results to [facility] for confirmation. Order the HIV antibody detection and differentiation: [id number] Performed By: #### L 509.8002, L3890.6006 #### [facility] [address] [place], [place], [address] L509.8002on 05-27-2024 Syphilis Abs Non-Reactive Normal Nonreactive [facility] Comment on above: Performed By: #### L 509.8002, L3890.6006 #### [facility] [address], [place], [address] Laboratory - Chemistry and C hemistry - challengeOrdered By: Anna Marin on 05-27-2024 Glucose Ql (U) Negative [facility] Laboratory - UrinalysisOrder ed By: Anna Marin on 05-27-2024 Protein Ql (U) Negative [facility] Lymphocytes Auto (Unsp spec) [#/Vol]Ordered By: Anna Marin on 05-27-2024 Lymphocytes (Bld) [#/Vol] 1.68 10*3/uL 0.83-4.51 [facility] Lymphocytes/100 WBC Auto (Un sp spec)Ordered By: Anna Marin on 05-27-2024 Lymphocytes/100 WBC (Bld) 15.4 % Low 19-41 [facility] MCV (mean corpuscular volume ) determinationOrdered By: Anna Marin on 05-27-2024 MCV (RBC) [Entitic vol] 94.3 fL 81-99 [facility] Mean corpuscular hemoglobin (MCH) determinationOrdered By: Anna Marin on 05-27-2024 MCH (RBC) [Entitic mass] 32.7 pg High 27.0-32.0 [facility] Mean corpuscular hemoglobin concentration (MCHC) determinationOrdered By: Anna Marin on 05-27-2024 MCHC (RBC) [Mass/Vol] 34.7 g/dL 32-36 [facility] Mean platelet volume determi nationOrdered By: Anna Marin on 05-27-2024 Platelet mean volume (Bld) [Entitic vol] 10.4 fL 6.2-12.0 [facility] Monocyte percentageOrdered B y: Anna Marin on 05-27-2024 Monocytes/100 WBC (Bld) 6.1 % 0-10 [facility] Neutrophil percentageOrdered By: Anna Marin on 05-27-2024 Neutrophils/100 WBC (Bld) 76.6 % High 47-70 [facility] No Panel InformationOrdered By: Anna Marin on 05-27-2024 HIV (1&2) Antibody Non-Reactive Nonreactive [facility] Comment on above: Non-ReactiveReactive Repeatedly reactive samples must be confirmed according to CDC recommended confirmatory algorithms. The subresults for either HIVAG or AHIV can be used as an aid in the selection of the confirmation algorithm for reactive samples.Send out specimens with Reactive results to [facility] for confirmation.Order the HIV antibody detection and differentiation: [id number] Nucleated red blood cell per centageOrdered By: Anna Marin on 05-27-2024 Nucleated RBC/100 WBC (Bld) [Ratio] 0 % 0-5 [facility] [employer] Office Visit Reporton 05-27-2024 [employer] Office Visit Report [facility]'s [address], [address] [place] [address] OFFICE VISIT Date of Service: 05/27/24 MR#: [id number] Acct: [id number] Name: DAVID POST Rep #: [id number] : 1990 Provider: REECE Donis ams Age/Sex: 33/F [place] [facility] Status: Signed Intake Vital Signs 02/23/24 [...] kids Ryan Khan lives with his mom) [facility] housing: house number of children: 2 current occupational status: other current occupation: [employer] current occupational exposures/hazards: No pets and animals: [...] in: walking frequency: 1-2 times per week yesenia/mosque: None seatbelt use: always do you feel safe at home: Yes additional social history: [facility] [employer] [employer] 2 Elective abortions Hx Para 1 Spontaneous abortions Hx # Term Pregnancies 1 Ectopic pregnancies Hx # Pregnancies Multiple births # of living children 1 Past Pregnancies Del. Date Name GA/Weeks Outcome Route Bth Weight Gen Labor Lgth Anesthesia Del Locatn Provider FOB 04/29/23 Jason 39 live - full term 6lbs 12oz Male [facility] Mustapha Luciano Delivery Date: 04/29/23 Last Updated by: Dee Dee Dejesus [facility] nrfhts HPI 28 wk ob/glucose Details: [...] have insuran (more content not included)... Normal [facility] Platelet countOrdered By: Jeff Marin on 05-27-2024 Platelets (Bld) [#/Vol] 274 10*3/uL 150-450 [facility] RBC Auto (Bld) [#/Vol]Ordere d By: Anna Marin on 05-27-2024 RBC (Bld) [#/Vol] 3.67 10*6/uL Low 4.2-5.4 [facility] T. pallidum abOrdered By: Jeff Marin on 05-27-2024 Syphilis Total Antibody Non-Reactive Nonreactiv e [facility] White blood cell (WBC) count Ordered By: Anna Marin on 05-27-2024 WBC (Bld) [#/Vol] 10.9 10*3/uL 4.4-11.0 [facility] Laboratory - Chemistry and C hemistry - challengeOrdered By: Anna Marin on 05-13-2024 Glucose Ql (U) Negative [facility] Laboratory - UrinalysisOrder ed By: Anna Marin on 05-13-2024 Protein Ql (U) Negative [facility] [employer] Office Visit Reporton 05-13-2024 [employer] Office Visit Report [facility]'s [address], [address] [place] [address] OFFICE VISIT Date of Service: 05/13/24 MR#: [id number] Acct: [id number] Name: DAVID POST Rep #: [id number] : 1990 Provider: REECE Donis ams Age/Sex: 33/F [place] [facility] [place]: Signed Intake Vital Signs 02/23/24 09:41 [...] 2 current occupational status: other current occupation: [employer] current occupational exposures/hazards: No pets and animals: [...] in: walking frequency: 1-2 times per week yesenia/mosque: None seatbelt use: always do you feel safe at home: Yes additional social history: [facility] History 2 Elective abortions Hx Para 1 Spontaneous abortions Hx # Term Pregnancies 1 Ectopic pregnancies Hx # Pregnancies Multiple births # of living children 1 Past Pregnancies Del. Date Name GA/Weeks Outcome Route Bth Weight Infant Gen Labor Lgth Anesthesia Del Locatn Provider FOB 04/29/23 Jason 39 live - full term 6lbs 12oz Male [facility] Mustapha Luciano Delivery Date: 04/29/23 Last Updated by: Dee Dee Dejesus [facility] nrfhts HPI 26 wk ob Details: [...] now . (more content not included)... Normal [facility] Absolute lymphocyte countOrd ered By: Meena Carusomaciej on 05-02-2024 Lymphocytes Auto (Unsp spec) [#/Vol] 1.92 10*3/uL 0.83-4.51 [facility] Absolute neutrophil countOrd ered By: Meena Luciano on 05-02-2024 Neutrophils (Bld) [#/Vol] 7.6 10*3/uL 2.0-7.7 [facility] Automated lymphocyte count a s percentage of total leukocytesOrdered By: Meena Mustapha on 05-02-2024 Lymphocytes/100 WBC Auto (Unsp spec) 18.6 % Low 19-41 [facility] Basophil percentageOrdered B y: Meena Carusomaciej on 05-02-2024 Basophils/100 WBC (Bld) 0.5 % 0-1 [facility] CBC W/Diff, Automatedon 04-14 Absolute Lymph 1.92 X10 3/uL Normal 0.83-4.51 [facility] Comment on above: Performed By: #### M 100.2200, L505.5000, L7000.1800 #### [facility] [address] [place], [address] Absolute Neut 7.6 X10 3/uL Normal 2.0-7.7 [facility] Comment on above: Performed By: #### M 100.2200, L505.5000, L7000.1800 #### [facility] [address] [place], [address] Basophils/100 WBC (Bld) 0.5 % Normal 0-1 [facility] Comment on above: Performed By: #### M 100.2200, L505.5000, L7000.1800 #### [facility] [address] [place], [address] Eosinophils/100 WBC (Bld) 0.7 % Normal 0-5 [facility] Comment on above: Performed By: #### M 100.2200, L505.5000, L7000.1800 #### [facility] [address] [place], [address] Erythrocyte distribution width (RBC) [Ratio] 12.9 % Normal 11.6-14.6 [facility] Comment on above: Performed By: #### M 100.2200, L505.5000, L7000.1800 #### [facility] [address] [place], [address] Hematocrit (Bld) [Volume fraction] 33.7 % Low 37-47 [facility] Comment on above: Performed By: #### M 100.2200, L505.5000, L7000.1800 #### [facility] [address] [place], [address] Hemoglobin (Bld) [Mass/Vol] 11.6 g/dL Low 12.0-15.0 [facility] Comment on above: Performed By: #### M 100.2200, L505.5000, L7000.1800 #### [facility] [address] [place], [address] IG% 0.700 Normal 0.0-0.9 [facility] Comment on above: Result Comment: IG% - Immature Granulocytes (promyelocytes, myelocytes and metamyelocytes) > 1% indicates that a LEFT SHIFT is Present. Performed By: #### M 100.2200, L505.5000, L7000.1800 #### [facility] [address] [place], [address] Lymphocytes/100 WBC (Bld) 18.6 % Low 19-41 [facility] Comment on above: Performed By: #### M 100.2200, L505.5000, L7000.1800 #### [facility] [address] [place], [address] MCH (RBC) [Entitic mass] 32.1 pg High 27.0-32.0 [facility] Comment on above: Performed By: #### M 100.2200, L505.5000, L7000.1800 #### [facility] [address] [place], [address] MCHC (RBC) [Mass/Vol] 34.4 g/dL Normal 32-36 [facility] Comment on above: Performed By: #### M 100.2200, L505.5000, L7000.1800 #### [facility] [address] [place], [address] MCV (RBC) [Entitic vol] 93.4 fL Normal 81-99 [facility] Comment on above: Performed By: #### M 100.2200, L505.5000, L7000.1800 #### [facility] [address] [place], [address] Monocytes/100 WBC (Bld) 6.0 % Normal 0-10 [facility] Comment on above: Performed By: #### M 100.2200, L505.5000, L7000.1800 #### [facility] [address] [place], [address] Neutrophils/100 WBC (Bld) 73.5 % High 47-70 [facility] Comment on above: Performed By: #### M 100.2200, L505.5000, L7000.1800 #### [facility] [address] [place], [address] Nucleated RBC (Bld) [#/Vol] 0 10*3/uL Normal 0-5 [facility] Comment on above: Performed By: #### M 100.2200, L505.5000, L7000.1800 #### [facility] [address] [place], [address] Platelet mean volume (Bld) [Entitic vol] 10.1 fL Normal 6.2-12.0 [facility] Comment on above: Performed By: #### M 100.2200, L505.5000, L7000.1800 #### [facility] [address] [place], [address] Platelets (Bld) [#/Vol] 237 10*3/uL Normal 150-450 [facility] Comment on above: Performed By: #### M 100.2200, L505.5000, L7000.1800 #### [facility] [address] [place], [address] RBC (Bld) [#/Vol] 3.61 10*6/uL Low 4.2-5.4 [facility] Comment on above: Performed By: #### M 100.2200, L505.5000, L7000.1800 #### [facility] [address] [place], [address] RDW SD 43.9 fl Normal 35.1-43.9 [facility] Comment on above: Performed By: #### M 100.2200, L505.5000, L7000.1800 #### [facility] [address] [place], [address] WBC (Bld) [#/Vol] 10.3 10*3/uL Normal 4.4-11.0 [facility] Comment on above: Performed By: #### M 100.2200, L505.5000, L7000.1800 #### [facility] [address] [place], [address] Eosinophil percentageOrdered By: Meena Luciano on 05-02-2024 Eosinophils/100 WBC (Bld) 0.7 % 0-5 [facility] Erythrocyte distribution wid th ratioOrdered By: Meena Carusomaciej on 05-02-2024 Erythrocyte distribution width (RBC) [Ratio] 12.9 % 11.6-14.6 [facility] Erythrocyte distribution wid th standard deviationOrdered By: Meena Mustapha on 05-02-2024 Erythrocyte distribution width (RBC) [Entitic vol] 43.9 fL 35.1-43.9 [facility] Erythrocyte distribution width (RBC) [Ratio] 43.9 fl 35.1-43.9 [facility] Fibrinogenon 05-02-2024 FIBRINOGEN 366 mg/dl Normal - [facility] Comment on above: Performed By: #### M 100.2200, L505.5000, L7000.1800 #### [facility] [address] [place], [place], [address] Fibrinogen measurementOrdere d By: Meena Luciano on 05-02-2024 Fibrinogen 366 mg/dl - [facility] Hematocrit Auto (Bld) [Volum e fraction]Ordered By: Meena Luciano on 05-02-2024 Hematocrit (Bld) [Volume fraction] 33.7 % Low 37-47 [facility] Hemoglobin measurementOrdere d By: Meena Luciano on 05-02-2024 Hemoglobin (Bld) [Mass/Vol] 11.6 g/dL Low 12.0-15.0 [facility] Immature granulocytes/100 WB C Auto (Bld)Ordered By: Meena Luciano on 05-02-2024 Immature granulocytes/100 WBC (Bld) 0.700 % 0.0-0.9 [facility] Comment on above: IG% - Immature Granu locytes (promyelocytes, myelocytes and metamyelocytes) > 1% indicates that a LEFT SHIFT is Present. Lymphocytes Auto (Unsp spec) [#/Vol]Ordered By: Meena Luciano on 05-02-2024 Lymphocytes (Bld) [#/Vol] 1.92 10*3/uL 0.83-4.51 [facility] Lymphocytes/100 WBC Auto (Un sp spec)Ordered By: Meena Luciano on 05-02-2024 Lymphocytes/100 WBC (Bld) 18.6 % Low 19-41 [facility] MCV (mean corpuscular volume ) determinationOrdered By: Meena Luciano on 05-02-2024 MCV (RBC) [Entitic vol] 93.4 fL 81-99 [facility] Mean corpuscular hemoglobin (MCH) determinationOrdered By: Meena Luciano on 05-02-2024 MCH (RBC) [Entitic mass] 32.1 pg High 27.0-32.0 [facility] Mean corpuscular hemoglobin concentration (MCHC) determinationOrdered By: Meena Luciano on 05-02-2024 MCHC (RBC) [Mass/Vol] 34.4 g/dL 32-36 [facility] Mean platelet volume determi nationOrdered By: Meena Luciano on 05-02-2024 Platelet mean volume (Bld) [Entitic vol] 10.1 fL 6.2-12.0 [facility] Monocyte percentageOrdered B y: Meena Luciano on 05-02-2024 Monocytes/100 WBC (Bld) 6.0 % 0-10 [facility] Neutrophil percentageOrdered By: Meena Luciano on 05-02-2024 Neutrophils/100 WBC (Bld) 73.5 % High 47-70 [facility] Nucleated red blood cell per centageOrdered By: Meena Luciano on 05-02-2024 Nucleated RBC/100 WBC (Bld) [Ratio] 0 % 0-5 [facility] OB Triage Progress Noteon OB Triage Progress Note [facility] Medical Records Department [address] [address] OB Triage Progress Note 05/02/24 1105 MR#: [id number] Acct: [id number] Name: DAVID POST Rep #: [id number] : 1990 33 From: Meena Luciano MD PCP: Care Physician,No Primary Status:DEP CLI Y DOS: Location: WPOUT Progress Notes Date of Service: 05/02/24 Progress Note: Patient presents for triage evaluation secondary to fall FHT: 140 Moderate variability reactive isolated variable, no significant decelerations category I tracing [place]: no regular Contractions Assessment and plan: abdominal trauma, monitored and reassuring nl cbc and fibrinogen Reactive NST, reassuring maternal and status patient discharged to home to follow-up as scheduled. See problem list details for additional plan information. Charges/Coding Procedures Urinary/Genital 52xxx-59xxx: 28773-49 non-stress test Interp 05/03/24309 Date Meena Luciano MD Cosigner Signature (if applicable): Date CC: Dr. Meena Luciano MD; No Primary Care Physician Signed ADDENDUM by Dr. Meena Luciano MD on 05/03/24 at 0310 Addendum 24 weeks 05/03/24309 Date Meena Luciano MD cc: Dr. Meena Luciano MD; No Primary Care Physician * Signed Normal [facility] Platelet countOrdered By: Janell Luciano on 05-02-2024 Platelets (Bld) [#/Vol] 237 10*3/uL 150-450 [facility] RBC Auto (Bld) [#/Vol]Ordere d By: Meena Luciano on 05-02-2024 RBC (Bld) [#/Vol] 3.61 10*6/uL Low 4.2-5.4 [facility] White blood cell (WBC) count Ordered By: Meena Luciano on 05-02-2024 WBC (Bld) [#/Vol] 10.3 10*3/uL 4.4-11.0 [facility] Roxy 04-25-2024 CNOV Office Visit (UCWSTR ) DAVID POST ([id number]) 1990 F Date Time Provider Department 04/25/24 5:00 PM NICOLÁS MALIK [facility] During your visit today, we recorded the following information about you: Temperature Pulse Respiration Blood pressure 97.7 degrees 71/minute 20/minute 100/62 Weight 81 kg Nicolás Malik APRN.[employer] 04/25/2024 4:54 PM Signed Subjective HPI Nontoxic-appearing [...] RELIEF) 50 mcg/actuation nasal spray Use 1 [place] in each nostril once daily. (Patient not [...] generated using (more content not included)... Normal [facility] - Chemistry and C hemistry - challengeOrdered By: Mary Joya on 04-15-2024 Glucose Ql (U) Negative [facility] Laboratory - UrinalysisOrder ed By: Mary Joya on 04-15-2024 Protein Ql (U) Negative [facility] [employer] Office Visit Reporton 04-15-2024 [employer] Office Visit Report [facility]'[address], [address] [place] [address] OFFICE VISIT Date of Service: 04/15/24 MR#: [id number] Acct: [id number] Name: DAVID POST Rep #: [id number] : 1990 Provider: PATRICA rangel Age/Sex: 33/F [place] [facility] [place]: Signed Intake Vital Signs 02/23/24 09:41 03/22/24 14:56 04/15/24 15:46 Height 5 ft 3 in 5 ft 3 in 5 ft 3 in Weight: 176 lb 6 oz BMI 31.2 BP 98/64 Intake Visit Reasons: 22 wk ob Chief Complaint: 22 Week OB Bin Worker Required: No Is patient in pain?: No [...] kids Ryan Khan lives with his mom) [facility] housing: house number of children: 2 current occupational status: other current occupation: [employer] current occupational exposures/hazards: No pets and animals: [...] in: walking frequency: 1-2 times per week yesenia/mosque: None seatbelt use: always do you feel safe at home: Yes additional [facility] history: [facility] 2 Elective abortions Hx Para 1 Spontaneous abortions Hx # Term Pregnancies 1 Ectopic pregnancies Hx # Pregnancies Multiple births # of living children 1 Past Pregnancies Del. Date Name GA/Weeks Outcome Route Bth Weight Infant Gen Labor Lgth Anesthesia Del Locatn Provider FOB 04/29/23 Jason 39 live - full term 6lbs 12oz Male [facility] Mustapha Luciano Delivery Date: 04/29/23 Last Updated by: Dee Dee Dejesus [facility] nrfhts HPI 22 wk ob Details: [...] unsure ab (more content not included)... Normal [facility] CNOVon 04-12-2024 CNOV Office Visit (UCWSTR ) DAVID POST ([id number]) 1990 F Date Time Provider Department 04/12/24 4:00 PM SHANNON NEWTON [facility] During your visit today, we recorded the following information about you: Temperature Pulse Respiration Blood pressure 98.6 degrees 79/minute 18/minute 106/66 Weight 80.2 kg Shannon Newton APRN.SOFIE 04/12/2024 4:06 PM Signed CC: Patient presents [...] RELIEF) 50 mcg/actuation nasal spray Use 1 [place] in each nostril once daily. therapeutic multivitamin-minerals [...] by coughs, sneezes, and direct contact, especially [id number]. A respiratory tract infection usually clears up [...] - Fully (more content not included)... 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 Meena amezquita MD Age/Sex: 33/F [place] [facility] [place] Status: Signed Intake Vital Signs 02/23/24 09:41 03/22/24 14:56 Height 5 ft 3 in 5 ft 3 in Weight: 175 lb BMI 30.9 BP 108/67 Intake Visit Reasons: 18 wk ob Bin Worker Required: No Is patient in pain?: No [...] kids Ryan Khan lives with his mom) [facility] housing: house number of children: 2 current occupational status: other current occupation: [employer] current occupational exposures/hazards: No pets and animals: [...] in: walking frequency: 1-2 times per week yesenia/mosque: None seatbelt use: always do you feel safe at home: Yes additional social history: [facility] History 2 Elective abortions Hx Para 1 Spontaneous abortions Hx # Term Pregnancies 1 Ectopic pregnancies Hx # Pregnancies Multiple births # of living children 1 Past Pregnancies Del. Date Name GA/Weeks Outcome Route Bth Weight Infant Gen Labor Lgth Anesthesia Del Locatn Provider FOB 04/29/23 Jason 39 live - full term 6lbs 12oz Male [facility] Mustapha Luciano Delivery Date: 04/29/23 Last Updated by: Dee Dee Dejesus [facility] nrfhts HPI 18 wk ob Details: [...] bsent fo (more content not included)... Normal [facility] HIV - WCHon 02-26-2024 HIV Non-Reactive Normal Nonreactive [facility] Comment on above: Order Comment: Reaso n for Exam: Performed By: #### M 100.2200, L505.5000, L7000.1800 #### [facility] [address] [place], [address] Hepatitis B Surface Antigeno n 02-26-2024 HEP B Surf Ag Non-Reactive Normal [facility] Comment on above: Order Comment: Reaso n for Exam: Performed By: #### M 100.2200, L505.5000, L7000.1800 #### [facility] [address] [place], [address] Hepatitis C Antibodyon 02-25 Hepatitis C AB Non-Reactive Normal [facility] Comment on above: Order Comment: Reaso n for Exam: Result Comment: Non Reactive: < 0.8 Equivocal: >/= 0.8 to < 1.0 Reactive: >/= 1.0 The CDC requires that a reactive/equivocal HCV antibody result be sent out for confirmation. HCV Quant by PCR testing. Performed By: #### M 100.2200, L505.5000, L7000.1800 #### [facility] [address] [place], [address] L509.8000on 02-26-2024 Syphilis Abs Non-Reactive Normal [facility] Comment on above: Order Comment: Reaso n for Exam: Performed By: #### M 100.2200, L505.5000, L7000.1800 #### [facility] [address] [place], [address] Rubella IgGon 02-26-2024 Rubella IgG Reactive Normal Nonreactive [facility] Comment on above: Order Comment: Reaso n for Exam: Result Comment: Anti body Results Interpretation of Immune Status Non Reactive Presumed Non-Immune Equivocal Equivocal Reactive Presumed Immune Performed By: #### M 100.2200, L505.5000, L7000.1800 #### [facility] [address] [place], [address] Absolute neutrophil countOrd ered By: Anna Marin on 02-23-2024 Neutrophils (Bld) [#/Vol] 4.9 10*3/uL 2.0-7.7 [facility] Basophil percentageOrdered B y: Anna Marin on 02-23-2024 Basophils/100 WBC (Bld) 0.7 % 0-1 [facility] CBC W/Diff, Automatedon 02-10 Absolute Lymph 1.73 X10 3/uL Normal 0.83-4.51 [facility] Comment on above: Performed By: #### M 100.2200, L505.5000, L7000.1800 #### [facility] [address] [place], [address] Absolute Neut 4.9 X10 3/uL Normal 2.0-7.7 [facility] Comment on above: Performed By: #### M 100.2200, L505.5000, L7000.1800 #### [facility] [address] [place], [address] Basophils/100 WBC (Bld) 0.7 % Normal 0-1 [facility] Comment on above: Performed By: #### M 100.2200, L505.5000, L7000.1800 #### [facility] [address] [place], [address] Eosinophils/100 WBC (Bld) 2.8 % Normal 0-5 [facility] Comment on above: Performed By: #### M 100.2200, L505.5000, L7000.1800 #### [facility] [address] [place], [address] Erythrocyte distribution width (RBC) [Ratio] 12.7 % Normal 11.6-14.6 [facility] Comment on above: Performed By: #### M 100.2200, L505.5000, L7000.1800 #### [facility] [address] [place], [address] Hematocrit (Bld) [Volume fraction] 36.1 % Low 37-47 [facility] Comment on above: Performed By: #### M 100.2200, L505.5000, L7000.1800 #### [facility] [address] [place], [address] Hemoglobin (Bld) [Mass/Vol] 12.9 g/dL Normal 12.0-15.0 [facility] Comment on above: Performed By: #### M 100.2200, L505.5000, L7000.1800 #### [facility] [address] [place], [address] IG% 0.300 Normal 0.0-0.9 [facility] Comment on above: Result Comment: IG% - Immature Granulocytes (promyelocytes, myelocytes and metamyelocytes) > 1% indicates that a LEFT SHIFT is Present. Performed By: #### M 100.2200, L505.5000, L7000.1800 #### [facility] [address] [place], [address] Lymphocytes/100 WBC (Bld) 23.1 % Normal 19-41 [facility] Comment on above: Performed By: #### M 100.2200, L505.5000, L7000.1800 #### [facility] [address] [place], [address] MCH (RBC) [Entitic mass] 31.6 pg Normal 27.0-32.0 [facility] Comment on above: Performed By: #### M 100.2200, L505.5000, L7000.1800 #### [facility] [address] [place], [address] MCHC (RBC) [Mass/Vol] 35.7 g/dL Normal 32-36 [facility] Comment on above: Performed By: #### M 100.2200, L505.5000, L7000.1800 #### [facility] [address] [place], [address] MCV (RBC) [Entitic vol] 88.5 fL Normal 81-99 [facility] Comment on above: Performed By: #### M 100.2200, L505.5000, L7000.1800 #### [facility] [address] [place], [address] Monocytes/100 WBC (Bld) 7.5 % Normal 0-10 [facility] Comment on above: Performed By: #### M 100.2200, L505.5000, L7000.1800 #### [facility] [address] [place], [address] Neutrophils/100 WBC (Bld) 65.6 % Normal 47-70 [facility] Comment on above: Performed By: #### M 100.2200, L505.5000, L7000.1800 #### [facility] [address] [place], [address] Nucleated RBC (Bld) [#/Vol] 0 10*3/uL Normal 0-5 [facility] Comment on above: Performed By: #### M 100.2200, L505.5000, L7000.1800 #### [facility] [address] [place], [address] Platelet mean volume (Bld) [Entitic vol] 10.8 fL Normal 6.2-12.0 [facility] Comment on above: Performed By: #### M 100.2200, L505.5000, L7000.1800 #### [facility] [address] [place], [address] Platelets (Bld) [#/Vol] 250 10*3/uL Normal 150-450 [facility] [facility] Comment on above: Performed By: #### M 100.2200, L505.5000, L7000.1800 #### [facility] [address] [place], [address] RBC (Bld) [#/Vol] 4.08 10*6/uL Low 4.2-5.4 [facility] Comment on above: Performed By: #### M 100.2200, L505.5000, L7000.1800 #### [facility] [address] [place], [address] RDW SD 41.0 fl Normal 35.1-43.9 [facility] Comment on above: Performed By: #### M 100.2200, L505.5000, L7000.1800 #### [facility] [address] [place], [address] WBC (Bld) [#/Vol] 7.5 10*3/uL Normal 4.4-11.0 [facility] Comment on above: Performed By: #### M 100.2200, L505.5000, L7000.1800 #### [facility] [address] [place], [address] Eosinophil percentageOrdered By: Anna Marin on 02-23-2024 Eosinophils/100 WBC (Bld) 2.8 % 0-5 [facility] Erythrocyte distribution wid th ratioOrdered By: Anna Marin on 02-23-2024 Erythrocyte distribution width (RBC) [Ratio] 12.7 % 11.6-14.6 [facility] Erythrocyte distribution wid th standard deviationOrdered By: Anna Marin on 02-23-2024 Erythrocyte distribution width (RBC) [Entitic vol] 41.0 fL 35.1-43.9 [facility] HIV 1+2 Ab+HIV1 p24 Ag IA Ql Ordered By: Anna Marin on 02-23-2024 HIV (1&2) Antibody Non-Reactive Nonreactive [facility] Hematocrit Auto (Bld) [Volum e fraction]Ordered By: Anna Marin on 02-23-2024 Hematocrit (Bld) [Volume fraction] 36.1 % Low 37-47 [facility] Hemoglobin A1con 02-23-2024 HbA1c (Bld) [Mass fraction] 4.9 % Normal 3.8-5.6 [facility] Comment on above: Result Comment: Norm al < 5.7 % Prediabetic 5.7 - 6.4 % Diabetic >or= 6.5 % Please note range changes. Performed By: #### M 100.2200, L505.5000, L7000.1800 #### [facility] [address] [facility] [place], [place], [address] Hemoglobin A1c percentageOrd ered By: Anna Marin on 02-23-2024 HbA1c (Bld) [Mass fraction] 4.9 % 3.8-5.6 [facility] Comment on above: Normal < 5.7 % Predi abetic 5.7 - 6.4 % Diabetic >or= 6.5 % Please note range changes. Hemoglobin measurementOrdere d By: Anna Marin on 02-23-2024 Hemoglobin (Bld) [Mass/Vol] 12.9 g/dL 12.0-15.0 [facility] Hepatitis B surface antigen detectionOrdered By: Anna Marin on 02-23-2024 Hepatitis B Surface Antigen Non-Reactive Nonreactive [facility] Hepatitis C virus antibody a ssayOrdered By: Anna Marin on 02-23-2024 Hepatitis C Antibody Non-Reactive Nonreactive [facility] Comment on above: Non Reactive: < 0.8 Equivocal: >/= 0.8 to < 1.0 Reactive: >/= 1.0The CDC requires that a reactive/equivocal HCV antibody result be sent out for confirmation. HCV Quant by PCR testing. Immature granulocytes/100 WB C Auto (Bld)Ordered By: Anna Marin on 02-23-2024 Immature granulocytes/100 WBC (Bld) 0.300 % 0.0-0.9 [facility] Comment on above: IG% - Immature Granu locytes (promyelocytes, myelocytes and metamyelocytes) > 1% indicates that a LEFT SHIFT is Present. Laboratory - Chemistry and C hemistry - challengeon 02-23-2024 Glucose Ql (U) Negative [facility] - Urinalysison Protein Ql (U) Negative [facility] Lymphocytes Auto (Unsp spec) [#/Vol]Ordered By: Anna Marin on 02-23-2024 Lymphocytes (Bld) [#/Vol] 1.73 10*3/uL 0.83-4.51 [facility] Lymphocytes/100 WBC Auto (Un sp spec)Ordered By: Anna Marin on 02-23-2024 Lymphocytes/100 WBC (Bld) 23.1 % 19-41 [facility] MCV (mean corpuscular volume ) determinationOrdered By: Anna Marin on 02-23-2024 MCV (RBC) [Entitic vol] 88.5 fL 81-99 [facility] Mean corpuscular hemoglobin (MCH) determinationOrdered By: Anna Marin on 02-23-2024 MCH (RBC) [Entitic mass] 31.6 pg 27.0-32.0 [facility] Mean corpuscular hemoglobin concentration (MCHC) determinationOrdered By: Anna Marin on 02-23-2024 MCHC (RBC) [Mass/Vol] 35.7 g/dL 32-36 [facility] Mean platelet volume determi nationOrdered By: Anna Marin on 02-23-2024 Platelet mean volume (Bld) [Entitic vol] 10.8 fL 6.2-12.0 [facility] Miscellaneous procedureOrder ed By: Anna Marin on 02-23-2024 Miscellaneous Test Comment SEE SCANNED REPORT [facility] Monocyte percentageOrdered B y: Anna Marin on 02-23-2024 Monocytes/100 WBC (Bld) 7.5 % 0-10 [facility] NATERAon 02-23-2024 NATURA SEE SCANNED REPORT Normal [facility] Comment on above: Performed By: #### M 100.2200, L505.5000, L7000.1800 #### [facility] [address] [place], [address] Neutrophil percentageOrdered By: Anna Marin on 02-23-2024 Neutrophils/100 WBC (Bld) 65.6 % 47-70 [facility] Nucleated red blood cell per centageOrdered By: Anna Marin on 02-23-2024 Nucleated RBC/100 WBC (Bld) [Ratio] 0 % 0-5 [facility] [employer] Office Visit Reporton 02-23-2024 [employer] Office Visit Report [facility] [address], [address] [place] [address] OFFICE VISIT Date of Service: 02/23/24 MR#: [id number] Acct: [id number] Name: DAVID POST Rep #: [id number] : 1990 Provider: Dr. Katelin Sotelo DO Age/Sex: 33/F [place] [facility] [place]: Signed Intake Vital Signs 12/21/23 14:37 02/23/24 09:39 02/23/24 09:41 Height 5 ft 3 in 5 ft 3 in 5 ft 3 in Weight: 173 lb BMI 30.6 BP 119/72 Intake Visit Reasons: 14wk OB Bin Worker Required: No Is patient in pain?: No [...] kids Ryan Khan lives with his mom) [facility] housing: house number of children: 2 current occupational status: other current occupation: [employer] current occupational exposures/hazards: No pets and animals: [...] in: walking frequency: 1-2 times per week yesenia/mosque: None seatbelt use: always do you feel safe at home: Yes additional social history: [facility] History 2 Elective abortions Hx Para 1 Spontaneous abortions Hx # Term Pregnancies 1 Ectopic pregnancies Hx # Pregnancies Multiple births # of living children 1 Past Pregnancies Del. Date Name GA/Weeks Outcome Route Bth Weight Infant Gen Labor Lgth Anesthesia Del Locatn Provider FOB 04/29/23 Jason 39 live - full term 6lbs 12oz Male [facility] Mustapha Luciano Delivery Date: 04/29/23 Last Updated by: Dee Dee Dejesus [facility] nrfhts HPI 14wk OB Details: DAVID POST is a 33 year old who presents for routine OB visit. OB Visit MANUEL Calculator Estimated Delivery Date Method Current WG Current Estimate 08/21/24 Ultrasound #1 14w 2d Other Estimates 07/04/24 LMP (Uncertain) 21w 1d 08/18/24 Ultrasound #2 14w 5d Expected Delivery Route/Plan R C/S with Specific [...] Trimester F (more content not included)... Normal [facility] Platelet countOrdered By: Jeff Marin on 02-23-2024 Platelets (Bld) [#/Vol] 250 10*3/uL 150-450 [facility] RBC Auto (Bld) [#/Vol]Ordere d By: Anna Marin on 02-23-2024 RBC (Bld) [#/Vol] 4.08 10*6/uL Low 4.2-5.4 [facility] Rubella immune status IgGOrd ered By: Anna Marin on 02-23-2024 Rubella IgG Antibody Reactive Nonreactive [facility] Comment on above: Antibody Results Int erpretation of Immune Status Non Reactive Presumed Non-Immune Equivocal Equivocal Reactive Presumed Immune Treponema sp Ab Ql (S)Ordere d By: Anna Marin on 02-23-2024 Syphilis Total Antibody Non-Reactive [facility] Type AND Screenon 02-23-2024 Ab SCREEN GEL Negative Normal [facility] Comment on above: Order Comment: PN Performed By: #### M 100.2200, L505.5000, L7000.1800 #### [facility] [address] [place], [address] ABO and Rh group Nom (Bld) Blood group O Rh(D) positive [facility] Comment on above: Order Comment: PN Performed By: #### M 100.2200, L505.5000, L7000.1800 #### [facility] [address] [place], [address] White blood cell (WBC) count Ordered By: Anna Marin on 02-23-2024 WBC (Bld) [#/Vol] 7.5 10*3/uL 4.4-11.0 [facility] ([facility] ) DAVID POST ([id number]) 1990 F Date Time Provider Department 12/26/23 1:00 PM NICOLÁS MALIK [facility] During your visit today, we recorded the following information about you: Temperature Pulse Respiration Blood pressure 99 degrees 78/minute 20/minute 107/70 Weight 81 kg Nicolás Malik, YISSEL.[employer] 12/26/2023 1:19 PM Signed Subjective HPI Nontoxic-appearing [...] RELIEF) 50 mcg/actuation nasal spray Use 1 [place] in each nostril once daily. FAMILY HISTORY [...] of care. This note was generated using EverySignal software. It may contain errors in wording, punctuation, or spelling. Nicolás Malik APRN.[employer] Allergies As of Date: 12/26/2023 (No Known Allergies) Date Revi (more content not included)... Normal [facility] Chlamydia/GC ELIZABETH aptimaon CHLAMY,NUC ACID Negative Normal Negative [facility] Comment on above: Performed By: #### M 100.2200, L505.5000, L7000.1800 #### [facility] [address] [place], [address] GC BY NUC ACID Negative Normal Negative [facility] Comment on above: Result Comment: Perf ormed at: =G - [facility] [address] [id number] Top Spotter: Jenny Correia MD, Phone: [phone] Performed By: #### M 100.2200, L505.5000, L7000.1800 #### [facility] [address] [place], [address] Gram Stainon 12-22-2023 GS Gram Stain 2+ White Blood Cells 1+ Gram positive cocci 2+ Gram negative rods No Epithelial cells Normal [facility] Comment on above: Performed By: #### M 100.2200, L505.5000, L7000.1800 #### [facility] [address] [place], [address] Urine Cultureon 12-22-2023 URC Culture exhibits no growth. Normal [facility] Comment on above: Performed By: #### M 100.2200, L505.5000, L7000.1800 #### [facility] [address] [place], [address] Wound Cultureon 12-22-[address] the dr ug of choice for Beta Streptococcal infections. For Penicillin allergic patients, Erythromycin may be used. Streptococcus group G Amount Growth 1+ Normal [facility] Comment on above: Performed By: #### M 100.2200, L505.5000, L7000.1800 #### [facility] [address] 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 [place] Status: Signed Intake Vital Signs 08/14/23 16:16 12/21/23 14:37 12/21/23 14:37 Height 5 ft 3 in 5 ft 3 in 5 ft 3 in Weight: 181 lb 8 oz BMI 32.1 BP 110/70 Intake Visit Reasons: LMP 09/27 MANUEL 07/04 Bin Worker Required: No Is patient in pain?: No [...] 2 current occupational status: other current occupation: 51 Give current occupational exposures/hazards: No pets and animals: [...] in: walking frequency: 1-2 times per week yesenia/mosque: None seatbelt use: always do you feel safe at home: Yes additional social history: [facility] 2 Elective abortions Hx Para 1 Spontaneous abortions Hx # Term Pregnancies 1 Ectopic pregnancies Hx # Pregnancies Multiple births # of living children 1 Past Pregnancies Del. Date Name GA/Weeks Outcome Route Bth Weight Gen Labor Lgth Anesthesia Del Locatn Provider FOB 04/29/23 Jason 39 live - full term 6lbs 12oz Male [facility] Mustapha Luciano Delivery Date: 04/29/23 Last Updated by: Dee Dee Dejesus [facility] nrfhts HPI LMP 09/27 MANUEL 07/04 [...] 07/04/24 Expected Delivery Route/Plan R C/S with Specific [...] Heart Defe (more content not included)... Normal [facility] Urine Drug Screen (VISTA)on 12-21-2023 AMPHETAMINES Negative Normal <1000 ng/mL [facility] Comment on above: Order Comment: UNK Performed By: #### M 100.2200, L505.5000, L7000.1800 #### [facility] [address] [place], [address] BARBITIURATES Negative Normal < 200 ng/mL [facility] Comment on above: Order Comment: UNK Performed By: #### M 100.2200, L505.5000, L7000.1800 #### [facility] [address] [place], [address] BENZODIAZIPINE Negative Normal < 200 ng/mL [facility] Comment on above: Order Comment: UNK Performed By: #### M 100.2200, L505.5000, L7000.1800 #### [facility] [address] [place], [address] COCAINE Negative Normal < 300 ng/mL [facility] Comment on above: Order Comment: UNK Performed By: #### M 100.2200, L505.5000, L7000.1800 #### [facility] [address] [place], [address] ECSTACY Negative Normal < 500 ng/mL [facility] Comment on above: Order Comment: UNK Performed By: #### M 100.2200, L505.5000, L7000.1800 #### [facility] [address] [place], [address] METHADONE Negative Normal < 300 ng/mL [facility] Comment on above: Order Comment: UNK Performed By: #### M 100.2200, L505.5000, L7000.1800 #### [facility] [address] [place], [address] OPIATES Negative Normal < 300 ng/mL [facility] Comment on above: Order Comment: UNK Performed By: #### M 100.2200, L505.5000, L7000.1800 #### [facility] [address] [place], [address] PCP Negative Normal < 25 ng/mL [facility] Comment on above: Order Comment: UNK Performed By: #### M 100.2200, L505.5000, L7000.1800 #### [facility] [address] [place], [address] THC Positive Abnormal < 50 ng/mL [facility] Comment on above: Order Comment: UNK Performed By: #### M 100.2200, L505.5000, L7000.1800 #### [facility] [address] [place], [address] VISTA UDS PH 5 Normal [facility] Comment on above: Order Comment: UNK Performed By: #### M 100.2200, L505.5000, L7000.1800 #### [facility] [address] [place], [address] hCG Titer Quant., Serumon HCG QUANT. 8051 mIU/mL High 1-3 [facility] Comment on above: Result Comment: hCG levels with Gestational Age Gestational Age hCG mIU/mL (IU/L) 0.2 - 1 week 5 - 50 1-2 weeks 50 - 500 2-3 weeks 100 - 5000 3-4 weeks 500 - 17750 4-5 weeks 1000 - 26555 5-6 weeks 87920 - 100,000 6-8 weeks 36444 - 200,000 2-3 months 02221 - 100,000 Performed By: #### L 3410.9994, L3380.9100 #### [facility] [address] [place], [address] OV 09-05-2023 CNOV Office Visit (UCWSTR ) DAVID POST ([id number]) 1990 F Date Time Provider Department 09/05/23 10:00 AM DWIGHT DURAN [facility] During your visit today, we recorded the following information about you: Temperature Pulse Respiration Blood pressure 97.9 degrees 75/minute 18/minute 112/64 Weight 77.1 kg Dwight Duran PA 09/05/2023 10:16 AM Signed This note was created using Novitazter. Subjective David Post is a 32 year [...] detail warranting prompt ER evaluation. ANA MARIA Wesley, ANA MARIA Donald 09/05/2023 10:14 AM Signed Rest, increase water [...] out mucus (more content not included)... Normal [facility] STREP A MOLECULAR (POC)on Procedural Control Valid [facility] Strep A (POCT) Negative Negative [facility] CNOVon 05-05-2023 CNOV Office Visit (UCWSTR ) DAVID POST ([id number]) 1990 F Date Time Provider Department 05/05/23 11:45 AM MYAH NEWELL [facility] During your visit today, we recorded the [...] allergies. MEDICATIONS MULTIVITAMIN ORAL Take by mouth. JUNE04/01, , 1-20 mg-mcg per tablet TAKE 1 [...] A MOLECULAR (POC) ALEXY Masters TEACHING PROVIDER (Physician/PA/[employer]BER) NOTE OF PERSONAL INVOLVEMENT IN CARE: I have personally seen and examined the patient and performed the medical decision-making components. I have reviewed the Advanced Practice Registered Nurse ([employer] MEMBER) Student's documentation and verified the findings in the note as written. Any additions or changes are noted in bold/italics. Signature: Myah Newell Date: 05/05/2023 Time: 1:05 PM Myah Newell APRN.[facility] 05/05/2023 1:06 PM Addendum ASSESSMENT/PLAN: 1. Sore [...] more ser (more content not included)... Normal [facility] STREP A MOLECULAR (POC)on Procedural Control Valid [facility] Strep A (POCT) Negative Negative [facility] Basophil percentageOrdered B y: Meena Luciano on 04-29-2023 Hemoglobin (Bld) [Mass/Vol] 11.0 g/dL 12.0-15.0 [facility] WBC (Bld) [#/Vol] 15.0 10*3/uL 4.4-11.0 [facility] Determination of erythrocyte mean corpuscular volume (MCV)Ordered By: Meena Luciano on 04-29-2023 MCV (RBC) [Entitic vol] 92.0 fL 81-99 [facility] Erythrocyte distribution wid th ratioOrdered By: Meena Luciano on 04-29-2023 Erythrocyte distribution width (RBC) [Ratio] 13.6 % 11.6-14.6 [facility] Erythrocyte distribution wid th standard deviationOrdered By: Meena Luciano on 04-29-2023 Erythrocyte distribution width (RBC) [Entitic vol] 45.2 fL 35.1-43.9 [facility] Hematocrit Auto (Bld) [Volum e fraction]Ordered By: Meena Luciano on 04-29-2023 Hematocrit (Bld) [Volume fraction] 32.3 % 37-47 [facility] - Hematology and Cell countsOrdered By: Meena Luciano on 04-29-2023 MCH (RBC) [Entitic mass] 31.3 pg 27.0-32.0 [facility] MCHC (RBC) [Mass/Vol] 34.1 g/dL 32-36 [facility] Platelet mean volume (Bld) [Entitic vol] 10.9 fL 6.2-12.0 [facility] Platelets (Bld) [#/Vol] 187 10*3/uL 150-450 [facility] RBC Auto (Bld) [#/Vol]Ordere d By: Meena Luciano on 04-29-2023 RBC (Bld) [#/Vol] 3.51 10*6/uL 4.2-5.4 [facility] - Chemistry and C hemistry - challengeOrdered By: Meena Luciano on 04-28-2023 ALT [Catalytic activity/Vol] 30 U/L 13-56 [facility] - Drug toxicology Ordered By: Meena Luciano on 04-28-2023 Amphetamines Ql (U) Negative <1000 ng/mL [facility] Benzodiazepines Ql (U) Negative < 200 ng/mL [facility] Cannabinoids Screen Ql (U) Negative < 50 ng/mL [facility] Cocaine Ql (U) Negative < 300 ng/mL [facility] Opiates Ql (U) Negative < 300 ng/mL [facility] No Panel InformationOrdered By: Meena Luciano on 04-28-2023 Estimated Creatinine Clearance Calc 117.30 ml/min [facility] Estimated GFR (MDRD) Amer 118 mL/min >60 [facility] Comment on above: GFR Calc Estimated GFR (MDRD) Non-Af Amer 98 mL/min >60 [facility] Comment on above: Non- GFR Calc MDMA (Ecstasy) Screen Negative < 500 ng/mL [facility] Urine Barbiturates Screen Negative < 200 ng/mL [facility] Urine Drug Screen Comment [facility] Comment on above: CONFIRMATORY TESTING FOR ALL [...] Urine Methadone Screen Negative < 300 ng/mL [facility] Vaginal Amniotic Fluid Detection Positive Negative [facility] Comment on above: Amniotic fluid prese nt indicates rupture of Membranes. RESULTS CALLED TO Adam RONQUILLO 04/28/23 0302 Dee Dee Cyr.REPORT READ BACK BY Adam RONQUILLO . Serum Treponema species anti body detectionOrdered By: Meena Luciano on 04-28-2023 Treponema sp Ab Ql (S) Non-Reactive [facility] Serum or plasma creatinine m easurement (mass/volume)Ordered By: Meena Luciano on 04-28-2023 Creatinine [Mass/Vol] 0.73 mg/dL 0.55-1.02 [facility] Comment on above: The validity of the calculated GFR & GFRAA in patients over 70 years has not been determined. Clinical correlation is essential. Serum or plasma uric acid me asurement (mass/volume)Ordered By: Meena Luciano on 04-28-2023 Urate [Mass/Vol] 4.0 mg/dL 2.6-6.0 [facility] Comment on above: The drugs N-Acetylcy steine and Metamizole may falsely depress this assay. Thin prep Papanicolaou smear with manual screeningOrdered By: Meena Luciano on 04-28-2023 Protein (U) [Mass/Vol] 27.3 mg/dL 0.0-11.8 [facility] Thin prep Papanicolaou smear with manual screening 18 U/L 15-37 [facility] Urine creatinine measurement (mass/volume)Ordered By: Meena Luciano on 04-28-2023 Creatinine (U) [Mass/Vol] 144.00 mg/dL NO RANGE EST. [facility] Urine phencyclidine (PCP) de tectionOrdered By: Meena Luciano on 04-28-2023 Phencyclidine Ql (U) Negative < 25 ng/mL [facility] Urine protein/creatinine mas s ratioOrdered By: Meena Luciano on 04-28-2023 Protein/Creatinine (U) [Mass ratio] 190 mg/g CRE 0-200 [facility] - Microbiology an d Antimicrobial susceptibilityon 04-23-2023 SARS-CoV-2 (COVID-19) RNA ELIZABETH+probe Ql (Unsp spec) Detected [facility] No Panel Informationon 04-23 Influenza Types A,B Rapid (Clinic) Not detected [facility] - Chemistry and C hemistry - challengeon 04-21-2023 Glucose Ql (U) Negative [facility] - Urinalysison Protein Ql (U) Trace [facility] No Panel InformationOrdered By: Anna Marin on 04-21-2023 Group B Streptococcus Culture Group B Beta Streptococcus is not isolated. [facility] Group B Streptococcus Culture Group B Beta Streptococcus is not isolated. [facility] - Chemistry and C hemistry - challengeon 02-27-2023 Glucose Ql (U) Negative [facility] - Urinalysison Protein Ql (U) Negative [facility] Absolute lymphocyte countOrd ered By: Katelin Montejo on 02-17-2023 Lymphocytes Auto (Unsp spec) [#/Vol] 1.64 10*3/uL 0.83-4.51 [facility] Basophil percentageOrdered B y: Katelin Montejo on 02-17-2023 Basophils/100 WBC (Bld) 0.4 % 0-1 [facility] Eosinophils/100 WBC (Bld) 1.9 % 0-5 [facility] Neutrophils (Bld) [#/Vol] 8.2 10*3/uL 2.0-7.7 [facility] Neutrophils/100 WBC (Bld) 75.6 % 47-70 [facility] WBC (Bld) [#/Vol] 10.9 10*3/uL 4.4-11.0 [facility] Blood erythrocytes count (nu mber/volume)Ordered By: Katelin Montejo on 02-17-2023 RBC (Bld) [#/Vol] 3.60 10*6/uL 4.2-5.4 [facility] Blood hemoglobin measurement (mass/volume)Ordered By: Katelin Montejo on 02-17-2023 Hemoglobin (Bld) [Mass/Vol] 12.0 g/dL 12.0-15.0 [facility] Blood lymphocytes/100 leukoc ytesOrdered By: Katelin Montejo on 02-17-2023 Lymphocytes/100 WBC (Bld) 15.1 % 19-41 [facility] Blood monocytes/100 leukocyt esOrdered By: Katelin Montejo on 02-17-2023 Monocytes/100 WBC (Bld) 6.5 % 0-10 [facility] Blood platelet mean volumeOr dered By: Katelin Montejo on 02-17-2023 Platelet mean volume (Bld) [Entitic vol] 10.5 fL 6.2-12.0 [facility] Determination of erythrocyte mean corpuscular volume (MCV)Ordered By: Katelin Montejo on 02-17-2023 MCV (RBC) [Entitic vol] 94.7 fL 81-99 [facility] Gestational diabetes screen 1-hour screen with 50g oral glucose loadOrdered By: Katelin Montejo on 02-17-2023 Glucose 1 Hr post 50 g glucose PO [Mass/Vol] 106 mg/dL 70-140 [facility] HIV 1 and HIV-2 antibody ass ay with HIV-1 p24 antigen detectionOrdered By: Katelin Montejo on 02-17-2023 HIV 1+2 Ab+HIV1 p24 Ag IA Ql Non-Reactive Nonreactive [facility] Hematocrit Auto (Bld) [Volum e fraction]Ordered By: Katelin Montejo on 02-17-2023 Hematocrit (Bld) [Volume fraction] 34.1 % 37-47 [facility] Laboratory - Hematology and Cell countsOrdered By: Katelin Montejo on 02-17-2023 Erythrocyte distribution width (RBC) [Entitic vol] 42.8 fL 35.1-43.9 [facility] Erythrocyte distribution width (RBC) [Ratio] 12.2 % 11.6-14.6 [facility] Immature granulocytes/100 WBC (Bld) 0.500 % 0.0-0.9 [facility] Comment on above: IG% - Immature Granu locytes (promyelocytes, myelocytes and metamyelocytes) > 1% indicates that a LEFT SHIFT is Present. MCH (RBC) [Entitic mass] 33.3 pg 27.0-32.0 [facility] Nucleated RBC/100 WBC (Bld) [Ratio] 0 % 0-5 [facility] MCHC Auto (RBC) [Mass/Vol]Or dered By: Katelin Montejo on 02-17-2023 MCHC (RBC) [Mass/Vol] 35.2 g/dL 32-36 [facility] Platelets bldOrdered By: Eleanor Montejo on 02-17-2023 Platelets (Bld) [#/Vol] 235 10*3/uL 150-450 [facility] Serum Treponema species anti body detectionOrdered By: Katelin Montejo on 02-17-2023 Treponema sp Ab Ql (S) Non-Reactive [facility] Laboratory - Chemistry and C hemistry - challengeon 01-06-2023 Glucose Ql (U) Negative [facility] Laboratory - Urinalysison Protein Ql (U) Negative [facility] Laboratory - Chemistry and C hemistry - challengeon 12-09-2022 Glucose Ql (U) Negative [facility] Laboratory - Urinalysison Protein Ql (U) Negative [facility] Culture, urineOrdered By: Jeff Marin on 11-11-2022 Bacteria identified Cx Nom (U) Positive [facility] Bacteria identified Cx Nom (U) Positive [facility] Absolute lymphocyte countOrd ered By: Katelin Montejo on 10-14-2022 Lymphocytes Auto (Unsp spec) [#/Vol] 1.75 10*3/uL 0.83-4.51 [facility] Basophil percentageOrdered B y: Katelin Montejo on 10-14-2022 Basophils/100 WBC (Bld) 0.5 % 0-1 [facility] Eosinophils/100 WBC (Bld) 3.8 % 0-5 [facility] Neutrophils (Bld) [#/Vol] 5.4 10*3/uL 2.0-7.7 [facility] Neutrophils/100 WBC (Bld) 66.0 % 47-70 [facility] WBC (Bld) [#/Vol] 8.1 10*3/uL 4.4-11.0 [facility] Blood erythrocytes count (nu mber/volume)Ordered By: Katelin Montejo on 10-14-2022 RBC (Bld) [#/Vol] 4.00 10*6/uL 4.2-5.4 [facility] Blood hemoglobin measurement (mass/volume)Ordered By: Katelin Montejo on 10-14-2022 Hemoglobin (Bld) [Mass/Vol] 12.6 g/dL 12.0-15.0 [facility] Blood lymphocytes/100 leukoc ytesOrdered By: Katelin Montejo on 10-14-2022 Lymphocytes/100 WBC (Bld) 21.5 % 19-41 [facility] Blood monocytes/100 leukocyt esOrdered By: Katelin Montejo on 10-14-2022 Monocytes/100 WBC (Bld) 7.7 % 0-10 [facility] Blood platelet mean volumeOr dered By: Katelin Montejo on 10-14-2022 Platelet mean volume (Bld) [Entitic vol] 10.4 fL 6.2-12.0 [facility] Chlamydia trachomatis rRNA d etection by probe and target amplification methodOrdered By: Katelin Montejo on 10-14-2022 C. trachomatis rRNA ELIZABETH+probe Ql (Unsp spec) Negative Negative [facility] Culture, urineOrdered By: Roque Montejo on 10-14-2022 Bacteria identified Cx Nom (U) Mixed Gram Pos & Gram Neg Org [facility] Determination of erythrocyte mean corpuscular volume (MCV)Ordered By: Katelin Montejo on 10-14-2022 MCV (RBC) [Entitic vol] 92.8 fL 81-99 [facility] HIV 1 and HIV-2 antibody ass ay with HIV-1 p24 antigen detectionOrdered By: Katelin Montejo on 10-14-2022 HIV 1+2 Ab+HIV1 p24 Ag IA Ql Non-Reactive Nonreactive [facility] Hematocrit Auto (Bld) [Volum e fraction]Ordered By: Katelin Montejo on 10-14-2022 Hematocrit (Bld) [Volume fraction] 37.1 % 37-47 [facility] Laboratory - Hematology and Cell countsOrdered By: Katelin Montejo on 10-14-2022 Erythrocyte distribution width (RBC) [Entitic vol] 41.2 fL 35.1-43.9 [facility] Erythrocyte distribution width (RBC) [Ratio] 12.0 % 11.6-14.6 [facility] Immature granulocytes/100 WBC (Bld) 0.500 % 0.0-0.9 [facility] Comment on above: IG% - Immature Granu locytes (promyelocytes, myelocytes and metamyelocytes) > 1% indicates that a LEFT SHIFT is Present. MCH (RBC) [Entitic mass] 31.5 pg 27.0-32.0 [facility] Nucleated RBC/100 WBC (Bld) [Ratio] 0 % 0-5 [facility] Laboratory - Microbiology an d Antimicrobial susceptibilityOrdered By: Katelin Montejo on 10-14-2022 N. gonorrhoeae DNA ELIZABETH+probe Ql (Unsp spec) Negative Negative [facility] Comment on above: Performed at: =[address] [id number] Director: Jenny Correia MD, Phone: [phone] MCHC Auto (RBC) [Mass/Vol]Or dered By: Katelin Montejo on 10-14-2022 MCHC (RBC) [Mass/Vol] 34.0 g/dL 32-36 [facility] No Panel InformationOrdered By: Katelin Montejo on 10-14-2022 Hepatitis B Surface Antigen Non-Reactive Nonreactive [facility] Hepatitis C Antibody Non-Reactive Nonreactive [facility] Comment on above: Non Reactive: < 0.8 Equivocal: >/= 0.8 to < 1.0 Reactive: >/= 1.0The CDC recommends that a reactive/equivocal HCV antibody result be followed up by the HCV Nucleic Acid Amplificationtest (585912) Miscellaneous Test Comment MAILED SPECIMEN [facility] Rubella IgG Antibody Reactive Nonreactive [facility] Comment on above: Antibody Results Int erpretation of Immune Status Non Reactive Presumed Non-Immune Equivocal Equivocal Reactive Presumed Immune Platelets bldOrdered By: Eleanor Montejo on 10-14-2022 Platelets (Bld) [#/Vol] 243 10*3/uL 150-450 [facility] Serum Treponema species anti body detectionOrdered By: Katelin Montejo on 10-14-2022 Treponema sp Ab Ql (S) Non-Reactive [facility] XR HAND GENERAL 3V PA/LAT/OB L RIGHTon 06-14-2022 [facility] XR Hand - right PA and Later al and Obliqueon 06-14-2022 Radiology Study observation (narrative) Rubén urias [facility] IMPRESSION: Negative [employer] Sales Representative: PSC[employer] Transcribe Date/Time: Jun 14 2022 1:13P Dictated by : AMAN HELMS MD This examination was interpreted and the report reviewed and electronically signed by: AMAN HELMS MD on Jun 14 2022 1:14PM [facility] DIVISION OF RADIOLOGY * * *Final Report* [...] tissues are unremarkable. DIVISION OF RADIOLOGY Provider, [address] - 06/14/2022 * * *Final Report* * [...] soft tissues are unremarkable. IMPRESSION IMPRESSION: Negative [employer] Sales Representative: PSCB Transcribe Date/Time: Jun 14 2022 1:13P Dictated by : AMAN HELMS MD This examination was interpreted and the report reviewed and electronically signed by: AMAN HELMS MD on Jun 14 2022 1:14PM EST [facility] XR Hand - right PA and Later al and ObliqueOrdered By: Ccf Provider on 06-14-2022 [facility] Vital Signs Date Time Vital Sign Value Performing Clinician Gregory manuel 09-24-2024 11:070400 Body height 160.02 cm No Primary Care Physician [facility] 09-24-2024 11:070400 Body mass index (BMI) [Ratio] 30.6 kg/m2 No Primary Care Physician [facility] 09-24-2024 11:07040 Body weight 78.47 kg No Primary Care Physician [facility] 09-24-2024 11:07-0400 Diastolic blood pressure 71 mm[Hg] No Primary Care Physician [facility] 09-24-2024 11:07040 Systolic blood pressure 106 mm[Hg] No Primary Care Physician [facility] 08-27-2024 10:15-0400 Body height 160.02 cm No Primary Care Physician [facility] 08-27-2024 10:11-0400 Body mass index (BMI) [Ratio] 29.4 kg/m2 No Primary Care Physician [facility] 08-27-2024 10:11-0400 Body weight 75.4 kg No Primary Care Physician [facility] 08-27-2024 10:11-0400 Diastolic blood pressure 75 mm[Hg] No Primary Care Physician [facility] 08-27-2024 10:11-0400 Systolic blood pressure 114 mm[Hg] No Primary Care Physician [facility] 08-13-2024 11:30-0400 Body temperature 97.7 [degF] No Primary Care Physician [facility] 08-13-2024 11:30-0400 Diastolic blood pressure 71 mm[Hg] No Primary Care Physician [facility] 08-13-2024 11:30-0400 Heart rate 82 /min No Primary Care Physician [facility] 08-13-2024 11:30-0400 Respiratory rate 16 /min No Primary Care Physician [facility] 08-13-2024 11:30-0400 SaO2% (BldA) [Mass fraction] 97 % No Primary Care Physician [facility] 08-13-2024 11:30-0400 Systolic blood pressure 118 mm[Hg] No Primary Care Physician [facility] 08-11-2024 20:18-0400 Body height 160.02 cm No Primary Care Physician [facility] 08-11-2024 20:18-0400 Body mass index (BMI) [Ratio] 33.5 kg/m2 No Primary Care Physician [facility] 08-11-2024 20:18-0400 Body weight 85.72 kg No Primary Care Physician [facility] 08-08-2024 09:09-0400 Body height 165.1 cm No Primary Care Physician [facility] 08-08-2024 09:09-0400 Body mass index (BMI) [Ratio] 32.3 kg/m2 No Primary Care Physician [facility] 08-08-2024 09:09-0400 Body weight 88.11 kg No Primary Care Physician [facility] 08-08-2024 09:09-0400 Diastolic blood pressure 78 mm[Hg] No Primary Care Physician [facility] 08-08-2024 09:09-0400 Systolic blood pressure 131 mm[Hg] No Primary Care Physician [facility] 08-02-2024 11:21-0400 Body mass index (BMI) [Ratio] 32 kg/m2 No Primary Care Physician [facility] 08-02-2024 11:21-0400 Body weight 87.2 kg No Primary Care Physician [facility] 08-02-2024 11:21-0400 Diastolic blood pressure 81 mm[Hg] No Primary Care Physician [facility] 08-02-2024 11:21-0400 Systolic blood pressure 129 mm[Hg] No Primary Care Physician [facility] 07-22-2024 10:21-0400 Body mass index (BMI) [Ratio] 30.7 kg/m2 No Primary Care Physician [facility] 07-22-2024 10:21-0400 Body weight 83.57 kg No Primary Care Physician [facility] 07-22-2024 10:21-0400 Diastolic blood pressure 73 mm[Hg] No Primary Care Physician [facility] 07-22-2024 10:21-0400 Systolic blood pressure 118 mm[Hg] No Primary Care Physician [facility] 07-12-2024 10:04-0400 Body mass index (BMI) [Ratio] 31.3 kg/m2 No Primary Care Physician [facility] 07-12-2024 10:04-0400 Body weight 85.33 kg No Primary Care Physician [facility] 07-12-2024 10:04-0400 Diastolic blood pressure 73 mm[Hg] No Primary Care Physician [facility] 07-12-2024 10:04-0400 Systolic blood pressure 116 mm[Hg] No Primary Care Physician [facility] 06-24-2024 14:26-0400 Body mass index (BMI) [Ratio] 30.5 kg/m2 No Primary Care Physician [facility] 06-24-2024 14:26-0400 Body weight 83.17 kg No Primary Care Physician [facility] 06-24-2024 14:26-0400 Diastolic blood pressure 73 mm[Hg] No Primary Care Physician [facility] 06-24-2024 14:26-0400 Systolic blood pressure 120 mm[Hg] No Primary Care Physician [facility] 06-14-2024 14:49-0400 Body mass index (BMI) [Ratio] 30.2 kg/m2 No Primary Care Physician [facility] 06-14-2024 14:49-0400 Body weight 82.55 kg No Primary Care Physician [facility] 06-14-2024 14:49-0400 Diastolic blood pressure 78 mm[Hg] No Primary Care Physician [facility] 06-14-2024 14:49-0400 Systolic blood pressure 129 mm[Hg] No Primary Care Physician [facility] 05-27-2024 14:51-0400 Body height 165.1 cm No Primary Care Physician [facility] 05-27-2024 14:51-0400 Body mass index (BMI) [Ratio] 30.1 kg/m2 No Primary Care Physician [facility] 05-27-2024 14:51-0400 Body weight 82.21 kg No Primary Care Physician [facility] 05-27-2024 14:51-0400 Diastolic blood pressure 66 mm[Hg] No Primary Care Physician [facility] 05-27-2024 14:51-0400 Systolic blood pressure 108 mm[Hg] No Primary Care Physician [facility] 05-13-2024 11:02-0500 Body mass index (BMI) [Ratio] 30.1 kg/m2 No Primary Care Physician [facility] 05-13-2024 11:02-0500 Body weight 82.15 kg No Primary Care Physician [facility] 05-13-2024 11:02-0500 Diastolic blood pressure 68 mm[Hg] No Primary Care Physician [facility] 05-13-2024 11:02-0500 Systolic blood pressure 110 mm[Hg] No Primary Care Physician [facility] 05-02-2024 10:42-0500 Body mass index (BMI) [Ratio] 29.7 kg/m2 No Primary Care Physician [facility] 05-02-2024 10:42-0500 Body weight 81.19 kg No Primary Care Physician [facility] 05-02-2024 10:25-0500 Body temperature 98.4 [degF] No Primary Care Physician [facility] 05-02-2024 10:25-0500 Diastolic blood pressure 67 mm[Hg] No Primary Care Physician [facility] 05-02-2024 10:25-0500 Heart rate 70 /min No Primary Care Physician [facility] 05-02-2024 10:25-0500 Respiratory rate 18 /min No Primary Care Physician [facility] 05-02-2024 10:25-0500 SaO2% (BldA) [Mass fraction] 99 % No Primary Care Physician [facility] 05-02-2024 10:25-0500 Systolic blood pressure 115 mm[Hg] No Primary Care Physician [facility] 04-25-2024 16:39-0500 Body temperature 97.7 [degF] [facility] [employer] Work Phone: [facility] 04-25-2024 16:39-0500 Body weight 81 kg [facility] [employer] Work Phone: [facility] 04-25-2024 16:39-0500 Diastolic blood pressure 62 mm[Hg] Nicolás Pendlebury [employer] Work Phone: [facility] 04-25-2024 16:39-0500 Heart rate 71 /min Nicolás Pendlebury [employer] ENGINE[employer] Work Phone: [facility] 04-25-2024 16:39-0500 Respiratory rate 20 /min Nicolás Pendlebury [employer] ENG[employer] Work Phone: [facility] 04-25-2024 16:39-0500 SaO2% (BldA) [Mass fraction] 99 % [facility] [employer] ENGINE[employer] Work Phone: [facility] 04-25-2024 16:39-0500 Systolic blood pressure 100 mm[Hg] Nicolás Pendlebury [employer] ENGINE[employer] Work Phone: [facility] 04-15-2024 15:46-0500 Body mass index (BMI) [Ratio] 31.2 kg/m2 No Primary Care Physician [facility] 04-15-2024 15:46-0500 Body weight 80 kg No Primary Care Physician [facility] 04-15-2024 15:46-0500 Diastolic blood pressure 64 mm[Hg] No Primary Care Physician [facility] 04-15-2024 15:46-0500 Systolic blood pressure 98 mm[Hg] No Primary Care Physician [facility] 04-12-2024 15:55-0500 Body temperature 98.6 [degF] Shannon Newton APRN.[employer] Work Phone: [facility] 04-12-2024 15:55-0500 Body weight 80.2 kg Shannon Newton APRN.[employer] Work Phone: [facility] 04-12-2024 15:55-0500 Diastolic blood pressure 66 mm[Hg] Shannon Newton APRN.[employer] Work Phone: [facility] 04-12-2024 15:55-0500 Heart rate 79 /min Shannon Newton APRN.[employer]INEER Work Phone: [facility] 04-12-2024 15:55-0500 Respiratory rate 18 /min Shannon Newton APRN.[employer] ENGINEER Work Phone: [facility] 04-12-2024 15:55-0500 SaO2% (BldA) [Mass fraction] 98 % Shannon Newton APRN.[employer] ENGINEER Work Phone: [facility] 04-12-2024 15:55-0500 Systolic blood pressure 106 mm[Hg] Shannon Newton APRN.[employer]INEER Work Phone: [facility] 03-22-2024 14:56-0500 Body mass index (BMI) [Ratio] 30.9 kg/m2 No Primary Care Physician [facility] 03-22-2024 14:56-0500 Body weight 79.37 kg No Primary Care Physician [facility] 03-22-2024 14:56-0500 Diastolic blood pressure 67 mm[Hg] No Primary Care Physician [facility] 03-22-2024 14:56-0500 Systolic blood pressure 108 mm[Hg] No Primary Care Physician [facility] 02-23-2024 09:39-0500 Body mass index (BMI) [Ratio] 30.6 kg/m2 No Primary Care Physician [facility] 02-23-2024 09:39-0500 Body weight 78.47 kg No Primary Care Physician [facility] 02-23-2024 09:39-0500 Diastolic blood pressure 72 mm[Hg] No Primary Care Physician [facility] 02-23-2024 09:39-0500 Systolic blood pressure 119 mm[Hg] No Primary Care Physician [facility] 12-26-2023 12:58-0400 Body temperature 99 [degF] Nicolás Pendlebury [employer]INE[employer] Work Phone: [facility] 12-26-2023 12:58-0400 Body weight 81 kg Nicolás Pendrolabury [employer] ENGINEER Work Phone: [facility] 12-26-2023 12:58-0400 Diastolic blood pressure 70 mm[Hg] Nicolás Pendlebury [employer] ENGINEER Work Phone: [facility] 12-26-2023 12:58-0400 Heart rate 78 /min Nicolás Pendlebury [employer]ING ENGINEER Work Phone: [facility] 12-26-2023 12:58-0400 Respiratory rate 20 /min Nicolás Pendlebury [employer] ENGINEER Work Phone: [facility] 12-26-2023 12:58-0400 SaO2% (BldA) [Mass fraction] 99 % Nicolás Pendlebury [employer] ENGINEER Work Phone: [facility] 12-26-2023 12:58-0400 Systolic blood pressure 107 mm[Hg] Nicolás Pendlebury [employer] ENGINEER Work Phone: [facility] 09-05-2023 09:59-0400 Body temperature 97.9 [degF] Krislyn Aberegg PA Work Phone: [facility] 09-05-2023 09:59-0400 Body weight 77.1 kg Krislyn Aberegg PA Work Phone: [facility] 09-05-2023 09:59-0400 Diastolic blood pressure 64 mm[Hg] Krislyn Aberegg PA Work Phone: [facility] 09-05-2023 09:59-0400 Heart rate 75 /min Krislyn Aberegg PA Work Phone: [facility] 09-05-2023 09:59-0400 Respiratory rate 18 /min Krislyn Aberegg PA Work Phone: [facility] 09-05-2023 09:59-0400 SaO2% (BldA) [Mass fraction] 98 % Dwight Duran PA Work Phone: [facility] 09-05-2023 09:59-0400 Systolic blood pressure 112 mm[Hg] Dwight Duran PA Work Phone: [facility] 06-09-2023 15:12-0400 Body height 160.02 cm No Primary Care Physician [facility] 06-09-2023 15:11-0400 Body mass index (BMI) [Ratio] 30.4 kg/m2 No Primary Care Physician [facility] 06-09-2023 15:11-0400 Body weight 78.01 kg No Primary Care Physician [facility] 06-09-2023 15:11-0400 Diastolic blood pressure 81 mm[Hg] No Primary Care Physician [facility] 06-09-2023 15:11-0400 Systolic blood pressure 131 mm[Hg] No Primary Care Physician [facility] 05-09-2023 11:23-0500 Body mass index (BMI) [Ratio] 30.8 kg/m2 No Primary Care Physician [facility] 05-09-2023 11:23-0500 Body weight 78.92 kg No Primary Care Physician [facility] 05-09-2023 11:23-0500 Diastolic blood pressure 78 mm[Hg] No Primary Care Physician [facility] 05-09-2023 11:23-0500 Systolic blood pressure 125 mm[Hg] No Primary Care Physician [facility] 05-05-2023 11:42-0500 Body temperature 98.29 [degF] Myah Grimm-Loco [employer] Work Phone: [facility] 05-05-2023 11:42-0500 Body weight 79.74 kg Myah Prarohith-Loco [employer]INE[employer] Work Phone: [facility] 05-05-2023 11:42-0500 Diastolic blood pressure 80 mm[Hg] Myah Praallenler-Wood [employer] ENGINEER Work Phone: [facility] 05-05-2023 11:42-0500 Heart rate 85 /min Myah Praisler-Wood [employer] ENGINEER Work Phone: [facility] 05-05-2023 11:42-0500 Respiratory rate 16 /min Myah Praisler-Wood [employer]ING ENGINEER Work Phone: [facility] 05-05-2023 11:42-0500 SaO2% (BldA) [Mass fraction] 99 % Myah Praisler-Wood [employer]ING ENGINEER Work Phone: [facility] 05-05-2023 11:42-0500 Systolic blood pressure 130 mm[Hg] Myah Praisler-Wood [employer]ING ENGINEER Work Phone: [facility] 04-30-2023 12:00-0500 Body temperature 98.2 [degF] No Primary Care Physician [facility] 04-30-2023 12:00-0500 Diastolic blood pressure 67 mm[Hg] No Primary Care Physician [facility] 04-30-2023 12:00-0500 Heart rate 84 /min No Primary Care Physician [facility] 04-30-2023 12:00-0500 Respiratory rate 16 /min No Primary Care Physician [facility] 04-30-2023 12:00-0500 SaO2% (BldA) [Mass fraction] 99 % No Primary Care Physician [facility] 04-30-2023 12:00-0500 Systolic blood pressure 120 mm[Hg] No Primary Care Physician [facility] 04-28-2023 02:23-0500 Body height 160.02 cm No Primary Care Physician [facility] 04-28-2023 02:23-0500 Body mass index (BMI) [Ratio] 34.9 kg/m2 No Primary Care Physician [facility] 04-28-2023 02:23-0500 Body weight 89.3 kg No Primary Care Physician [facility] 04-23-2023 09:56-0500 Body height 160.02 cm No Primary Care Physician [facility] 04-23-2023 09:56-0500 Body mass index (BMI) [Ratio] 34.5 kg/m2 No Primary Care Physician [facility] 04-23-2023 09:56-0500 Body temperature 98.4 [degF] No Primary Care Physician [facility] 04-23-2023 09:56-0500 Body weight 88.45 kg No Primary Care Physician [facility] 04-23-2023 09:56-0500 Diastolic blood pressure 60 mm[Hg] No Primary Care Physician [facility] 04-23-2023 09:56-0500 Heart rate 90 /min No Primary Care Physician [facility] 04-23-2023 09:56-0500 Respiratory rate 14 /min No Primary Care Physician [facility] 04-23-2023 09:56-0500 SaO2% (BldA) [Mass fraction] 99 % No Primary Care Physician [facility] 04-23-2023 09:56-0500 Systolic blood pressure 118 mm[Hg] No Primary Care Physician [facility] 04-21-2023 15:30-0500 Body mass index (BMI) [Ratio] 32.8 kg/m2 No Primary Care Physician [facility] 04-21-2023 15:30-0500 Body weight 86.63 kg No Primary Care Physician [facility] 04-21-2023 15:30-0500 Diastolic blood pressure 76 mm[Hg] No Primary Care Physician [facility] 04-21-2023 15:30-0500 Systolic blood pressure 122 mm[Hg] No Primary Care Physician [facility] 04-03-2023 14:32-0500 Body height 162.56 cm No Primary Care Physician [facility] 04-03-2023 14:32-0500 Body mass index (BMI) [Ratio] 32.8 kg/m2 No Primary Care Physician [facility] 04-03-2023 14:32-0500 Body weight 86.63 kg No Primary Care Physician [facility] 04-03-2023 14:32-0500 Diastolic blood pressure 74 mm[Hg] No Primary Care Physician [facility] 04-03-2023 14:32-0500 Systolic blood pressure 114 mm[Hg] No Primary Care Physician [facility] 02-27-2023 15:29-0500 Body mass index (BMI) [Ratio] 30.4 kg/m2 No Primary Care Physician [facility] 02-27-2023 15:29-0500 Body weight 80.39 kg No Primary Care Physician [facility] 02-27-2023 15:29-0500 Diastolic blood pressure 65 mm[Hg] No Primary Care Physician [facility] 02-27-2023 15:29-0500 Systolic blood pressure 113 mm[Hg] No Primary Care Physician [facility] 02-17-2023 15:16-0500 Body height 162.56 cm No Primary Care Physician [facility] 02-17-2023 15:15-0500 Body mass index (BMI) [Ratio] 30 kg/m2 No Primary Care Physician [facility] 02-17-2023 15:15-0500 Body weight 79.37 kg No Primary Care Physician [facility] 02-17-2023 15:15-0500 Diastolic blood pressure 66 mm[Hg] No Primary Care Physician [facility] 02-17-2023 15:15-0500 Systolic blood pressure 101 mm[Hg] No Primary Care Physician [facility] 01-06-2023 14:12-0400 Body mass index (BMI) [Ratio] 28.7 kg/m2 No Primary Care Physician [facility] 01-06-2023 14:12-0400 Body weight 75.86 kg No Primary Care Physician [facility] 01-06-2023 14:12-0400 Diastolic blood pressure 62 mm[Hg] No Primary Care Physician [facility] 01-06-2023 14:12-0400 Systolic blood pressure 126 mm[Hg] No Primary Care Physician [facility] 12-09-2022 11:11-0400 Body mass index (BMI) [Ratio] 26.4 kg/m2 No Primary Care Physician [facility] 12-09-2022 11:11-0400 Body weight 69.85 kg No Primary Care Physician [facility] 12-09-2022 11:11-0400 Diastolic blood pressure 57 mm[Hg] No Primary Care Physician [facility] 12-09-2022 11:11-0400 Systolic blood pressure 101 mm[Hg] No Primary Care Physician [facility] 11-11-2022 10:09-0400 Body height 162.56 cm No Primary Care Physician [facility] 11-11-2022 10:08-0400 Body mass index (BMI) [Ratio] 25.6 kg/m2 No Primary Care Physician [facility] 09-01-2023 10:08-0400 Body weight 67.64 kg No Primary Care Physician [facility] 11-11-2022 10:08-0400 Diastolic blood pressure 75 mm[Hg] No Primary Care Physician [facility] 11-11-2022 10:08-0400 Systolic blood pressure 113 mm[Hg] No Primary Care Physician [facility] 10-14-2022 08:42-0400 Body height 162.[address] Meena Luciano Work Phone: [facility] 10-14-2022 08:42-0400 Body mass index (BMI) [Ratio] 25.7 kg/m2 Dr. Meena Luciano Work Phone: [phone] [place] [address] 10-14-2022 08:42-0400 Diastolic blood pressure 67 mm[Hg] Dr. Meena Luciano Work Phone: [phone] [place] [address] 10-14-2022 08:42-0400 Systolic blood pressure 118 mm[Hg] Dr. Meena Luciano Work Phone: [facility] 10-14-2022 08:35-0400 Body weight 68.[address] Meena Luciano Work Phone: [facility] 09-08-2022 13:07-0400 Body mass index (BMI) [Ratio] 26.8 kg/m2 Dr. Meena Luciano Work Phone: [facility] 09-08-2022 13:07-0400 Body weight 70.[address] Meena Luciano Work Phone: [facility] 09-08-2022 13:07-0400 Diastolic blood pressure 65 mm[Hg] Dr. Meena Luciano Work Phone: [facility] 09-08-2022 13:07-0400 Systolic blood pressure 112 mm[Hg] Dr. Meena Luciano Work Phone: [facility] 06-14-2022 12:53-0400 Body temperature 97.2 [degF] Sherri Seaman APRN.CNP Work Phone: [facility] 06-14-2022 12:53-0400 Body weight 75.3 kg Sherri Urszula [employer] Work Phone: [facility] 06-14-2022 12:53-0400 Diastolic blood pressure 68 mm[Hg] Sherri Urszula [employer]BER.[employer]URING ENGINEER Work Phone: [facility] 06-14-2022 12:53-0400 Heart rate 78 /min Sherri Urszula [employer]BER.[employer]UFACTURING ENGINEER Work Phone: [facility] 06-14-2022 12:53-0400 Respiratory rate 16 /min Sherri Urszula [employer]BER.[employer]UFACTURING ENGINEER Work Phone: [facility] 06-14-2022 12:53-0400 SaO2% (BldA) [Mass fraction] 99 % Sherri Urszula [employer]BER.[employer]UFACTURING ENGINEER Work Phone: [facility] 06-14-2022 12:53-0400 Systolic blood pressure 110 mm[Hg] Sherri Urszula [employer]BER.[employer]UFACTURING ENGINEER Work Phone: [facility] Encounters Encounter Date Encounter Type Care Provider Facility Start: 09-24-2024 ambulatory Katelin Amador cility:[facility] Start: 09-24-2024 End: 09-24-[address] Katelin Goins DO -[facility] Work Phone: Start: 09-24-2024 End: 09-24-2024 ambulatory No Primary Care Physician -[facility] Start: 08-27-2024 End: 08-27-[address] Katelin Goins DO -[facility] Work Phone: Start: 08-27-2024 End: 08-27-2024 ambulatory No Primary Care Physician [facility] Work Phone: Start: 08-27-2024 End: 08-27-2024 ambulatory No Primary Care Physician [facility] Work Phone: Start: 08-27-2024 End: 08-27-[address] Meena Luciano MD -[facility] Work Phone: Start: 08-21-2024 ambulatory No Primary Car e Physician Facility:[facility] Start: 08-15-2024 Non-patient / Non-visit Dr. Meena Luciano MD -[facility] Start: 08-15-2024 ambulatory Meena Jenkins lity:[facility] Start: 08-13-2024 Non-patient / Non-visit Dr. Meena Luciano MD -[facility] Start: 08-12-2024 Non-patient / Non-visit Dr. Meena Luciano MD -[facility] Start: 08-11-2024 ambulatory Meena Jenkins lity:[facility] Start: 08-11-2024 End: 08-13-2024 Evaluation and management of inpatient Dr. Meena Luciano MD -[facility] Work Phone: Start: 08-08-2024 End: 08-08-2024 Patient encounter procedure Anna Marin CNM -[facility] Work Phone: Start: 08-08-2024 End: 08-08-2024 ambulatory No Primary Care Physician [facility] Work Phone: Start: 08-02-2024 End: 08-02-2024 Patient encounter procedure Anna Marin CNM -[facility] Work Phone: Start: 08-02-2024 End: 08-02-2024 ambulatory No Primary Care Physician Facility[facility] Start: 07-22-2024 End: 07-22-[address] Katelin Goins DO -[facility] Work Phone: Start: 07-22-2024 End: 07-22-2024 ambulatory No Primary Care Physician Facility:[facility] Start: 07-12-2024 End: 07-12-2024 Patient encounter procedure Anna Marin CNM -[facility] Work Phone: Start: 07-12-2024 End: 07-12-2024 ambulatory No Primary Care Physician Facility:[facility] Start: 06-24-2024 End: 06-24-2024 Patient encounter procedure Anna BURROUGHS -[facility] Work Phone: Start: 06-24-2024 End: 06-24-2024 ambulatory No Primary Care Physician Facility:[facility] Start: 06-14-2024 End: 06-14-[address] Meena Luciano MD -[facility] Work Phone: Start: 06-14-2024 End: 06-14-2024 ambulatory No Primary Care Physician Facility[facility] Start: 05-27-2024 End: 05-27-2024 Patient encounter procedure Anna BURROUGHS -[facility] Work Phone: Start: 05-27-2024 End: 05-27-2024 ambulatory No Primary Care Physician [facility] Work Phone: Start: 05-27-2024 End: 05-27-2024 ambulatory No Primary Care Physician Facility:[facility] Start: 05-13-2024 End: 05-13-2024 Patient encounter procedure Anna BURROUGHS -[facility] Work Phone: Start: 05-13-2024 End: 05-13-2024 ambulatory No Primary Care Physician Facility:[facility] Start: 05-02-2024 Non-patient / Non-visit Dr. Meena Luicano MD -[facility] Start: 05-02-2024 End: 05-02-2024 ambulatory Meena Luciano Facility:[facility] Start: 05-02-2024 End: 05-02-[address] Meena Luciano MD -[facility] [place] Work Phone: Start: 04-25-2024 End: 04-25-2024 ambulatory Facility:[facility] Start: 04-25-2024 End: 04-25-2024 Office outpatient visit 25 minutes Nicolás Malik APRN.[employer]URING ENGINEER Work Phone: [facility] Comment on above: Acute otitis media, right (Primary Dx) Start: 04-15-2024 End: 04-15-2024 Patient encounter procedure Mary BURCIAGA -[facility] Work Phone: Start: 04-15-2024 End: 04-15-2024 ambulatory No Primary Care Physician Facility:[facility] Start: 04-12-2024 End: 04-12-2024 ambulatory Facility:[facility] Start: 04-12-2024 End: 04-12-2024 Patient encounter procedure Shannon Newton APRN.[employer]CTURING ENGINEER Work Phone: [facility] Comment on above: URI, acute (Primary Dx) Start: 03-27-2024 End: 03-27-2024 ambulatory MD NO PRIMARY CARE [facility] Start: 03-22-2024 End: 03-22-[address] Meena Luciano MD -[facility] Work Phone: Start: 03-22-2024 End: 03-22-2024 ambulatory No Primary Care Physician Facility:[facility] Start: 02-23-2024 End: 02-23-[address] Katelin Goins DO -[facility] Work Phone: Start: 02-23-2024 End: 02-23-2024 ambulatory No Primary Care Physician Facility:[facility] Start: 02-23-2024 End: 02-23-2024 ambulatory No Primary Care Physician Facility:[facility] Start: 12-27-2023 ambulatory No Primary Car e Physician Facility:[facility] Start: 12-26-2023 End: 12-26-2023 ambulatory Facility:[facility] Start: 12-26-2023 End: 12-26-2023 Office outpatient visit 25 minutes Nicolás Malik APRN.[employer]AN MANUFACTURING ENGINEER Work Phone: [facility] Comment on above: Lower resp. tract in fection (Primary Dx) Start: 12-21-2023 End: 12-21-2023 ambulatory No Primary Care Physician Facility:[facility] Start: 12-21-2023 End: 12-21-2023 ambulatory No Primary Care Physician Facility:[facility] Start: 09-05-2023 End: 09-05-2023 ambulatory Facility:[facility] Start: 09-05-2023 End: 09-05-2023 Patient encounter procedure Dwight RODGERS Work Phone: [facility] Comment on above: URI, acute (Primary Dx); Sore throat Start: 06-09-2023 End: 06-09-2023 ambulatory No Primary Care Physician [facility] Work Phone: Start: 06-09-2023 End: 06-09-2023 Patient encounter procedure No Primary Care Physician [facility]-Laboratory, Specimen Work Phone: Start: 06-09-2023 End: 06-09-2023 Patient encounter procedure No Primary Care Physician [facility] Work Phone: Start: 05-09-2023 End: 05-09-2023 Patient encounter procedure No Primary Care Physician [facility] Work Phone: Start: 05-05-2023 End: 05-05-2023 ambulatory Facility:[facility] Start: 05-05-2023 End: 05-05-2023 Patient encounter procedure Myah Newell APRN.CNP Work Phone: [facility] Comment on above: Sore throat (Primary Dx) Start: 04-30-2023 Non-patient / Non-visit No Primary Care Physician [facility] Start: 04-29-2023 Non-patient / Non-visit No Primary Care Physician [facility] Start: 04-28-2023 Non-patient / Non-visit No Primary Care Physician [facility] Start: 04-28-2023 End: 04-30-2023 Evaluation and management of inpatient No Primary Care Physician [facility] Work Phone: Start: 04-23-2023 End: 04-23-2023 Patient encounter procedure No Primary Care Physician [facility] Work Phone: Start: 04-21-2023 End: 04-21-2023 ambulatory No Primary Care Physician [facility] Work Phone: Start: 04-21-2023 End: 04-21-2023 Patient encounter procedure No Primary Care Physician [facility]Laboratory[facility] Specimen Work Phone: Start: 04-21-2023 End: 04-21-2023 Patient encounter procedure No Primary Care Physician [facility] Work Phone: Start: 04-11-2023 End: 04-11-2023 ambulatory No Primary Care Physician [facility] Work Phone: Start: 04-11-2023 End: 04-11-2023 Patient encounter procedure No Primary Care Physician [facility]Outpatient [facility] Ultrasound Work Phone: Start: 04-03-2023 End: 04-03-2023 Patient encounter procedure No Primary Care Physician [facility] Work Phone: Start: 02-27-2023 End: 02-27-2023 Patient encounter procedure No Primary Care Physician [facility] Work Phone: Start: 02-17-2023 End: 02-17-2023 ambulatory No Primary Care Physician [facility] Work Phone: Start: 02-17-2023 End: 02-17-2023 Patient encounter procedure No Primary Care Physician [facility] Work Phone: Start: 01-06-2023 End: 01-06-2023 Patient encounter procedure No Primary Care Physician [facility] Work Phone: Start: 12-09-2022 End: 12-09-2022 Patient encounter procedure No Primary Care Physician [facility] Work Phone: Start: 11-11-2022 End: 11-11-2022 ambulatory No Primary Care Physician [facility] Work Phone: Start: 11-11-2022 End: 11-11-2022 Patient encounter procedure No Primary Care Physician [facility]-Laboratory Work Phone: Start: 11-11-2022 End: 11-11-2022 Patient encounter procedure No Primary Care Physician [facility] Work Phone: Start: 10-14-2022 End: 10-14-[address] Meena Luciano Work Phone: [facility] Work Phone: Start: 10-14-2022 End: 10-14-[address] Meena Luciano Work Phone: [facility] Work Phone: Start: 09-08-2022 End: 09-08-[address] Meena Luciano Work Phone: [facility] Work Phone: Start: 06-14-2022 End: 06-14-2022 Subsequent hospital visit by physician [facility] Work Phone: Radiology Comment on above: Injury of right hand , initial encounter [S69.91XA] Start: 06-14-2022 End: 06-14-2022 Patient encounter procedure Sherri Seaman YISSEL.[employer] MANUFACTURING ENGINEER Work Phone: [facility] Comment on above: Injury of right hand , initial encounter (Primary Dx); Pain of finger of right hand Start: 12-05-2016 End: 12-05-2016 Ambulatory NICOLÁS MESA Facility:[facility] Procedures Date Procedure Procedure Detail Performing Clinician Start: 08-13-2024 Procedure No Primary Care Physician Comment on above: Performed at: [address] [id number] Director: William Goodman PhD, Phone: [phone] Start: 08-12-2024 Methadone measuremen t, urine No [...] Start: 09-05-2023 STREP A MOLECULAR (POC) Dwight RODGERS Work Phone: Start: 05-05-2023 STREP A MOLECULAR (POC) Myah Newell APRN.CNP Work Phone: Start: 04-21-2023 Group B Streptococcu s Culture No Primary Care Physician Start: 04-11-2023 Ultrasound scan for growth No Primary Care Physician Start: 11-11-2022 Urine culture No Primar y Care Physician Start: 10-14-[address] Katt Luciano Work Phone: Start: 06-14-2022 Radex hand minimum 3 views Sherri Seaman APRN.CNP Work Phone: H/O: section Previous c esarean section No Primary Care Physician Comment on above: Desires TOLAC vs rep eat c/s with SM, RLTCS scheduled for 08/21 @ 7:15 with JV. (SM out of office all week) H/O: section [...] DTaP,Tdap,Td Vaccine (2 - Td or Tdap) [facility] Start: 08-13-2024 Procedure [facility] Start: 08-13-2024 Urine opiate measurement [facility] Start: 08-13-2024 Patient discharge [facility] Start: 08-13-2024 Application of abdominal corset [facility] Start: 08-12-2024 Application of abdominal corset [facility] Start: 08-12-2024 Administration of medication [facility] Start: 08-12-2024 Ambulation therapy management [facility] Start: 08-12-2024 Application of device [facility] Start: 08-12-2024 Application of intermittent pneumatic compression device [facility] Start: 08-12-2024 Assessment of risk of venous thromboembolism [facility] Start: 08-12-2024 Catheterization of vein [facility] Start: 08-12-2024 Deep breathing and coughing exercises [facility] Start: 08-12-2024 Exercises [facility] Start: 08-12-2024 Measuring intake and output [facility] Start: 08-12-[address] [facility] Start: 08-12-2024 Procedure discontinued [facility] Start: 08-12-2024 Provision of activity privileges [facility] Start: 08-12-2024 Skin care [facility] Start: 08-12-2024 Vital signs measurements [facility] Start: 08-12-2024 Wound care [facility] Start: 08-12-2024 End: 08-12-2024 Consultation [facility] Start: 08-12-2024 End: 08-12-2024 [facility] Start: 08-11-2024 Admission procedure [facility] Start: 05-21-2024 PAP TESTING PAP TESTING [facility] Start: 05-21-2024 Screening for malignant neoplasm of cervix Pap Testing [facility] Start: 05-02-2024 Nonstress test [facility] Start: 05-02-2024 Obstetric monitoring [facility] Start: 05-02-2024 Vital signs measurements [facility] Start: 05-02-2024 [facility] Start: 05-02-2024 Patient discharge [facility] Start: 11-12-2023 Covid-19 Vaccine ( season) Covid-19 Vaccine () [facility] Start: 11-12-2023 Influenza vaccination [facility] Start: 06-09-2023 Liquid based cervical cytology screening [facility] Start: 04-30-2023 Patient discharge [facility] Start: 04-29-2023 Application of abdominal corset [facility] Start: 04-28-2023 End: 04-29-2023 [facility] Start: 04-28-2023 Administration of medication [facility] Start: 04-28-2023 Ambulation therapy management [facility] Start: 04-28-2023 Application of device [facility] Start: 04-28-2023 Application of intermittent pneumatic compression device [facility] Start: 04-28-2023 Assessment of risk of venous thromboembolism [facility] Start: 04-28-2023 Catheterization of vein [facility] Start: 04-28-2023 Deep breathing and coughing exercises [facility] Start: 04-28-2023 Exercises [facility] Start: 04-28-2023 Measuring intake and output [facility] Start: 04-28-[address] [facility] Start: 04-28-2023 Procedure discontinued [facility] Start: 04-28-2023 Provision of activity privileges [facility] Start: 04-28-2023 Skin care [facility] Start: 04-28-2023 Vital signs measurements [facility] Start: 04-28-2023 Wound care [facility] Start: 04-28-2023 Application of abdominal corset [facility] Start: 04-28-2023 Admission procedure [facility] Start: 04-28-2023 [facility] Start: 04-28-2023 Consultation [facility] Start: 03-13-2023 Behavioral Health Screening Behavioral Health Screening [facility] Start: 03-13-2023 Depression Assessment Depression Assessment [facility] Start: 11-11-2022 Covid-19 Vaccine ( season) Covid-19 Vaccine () [facility] Start: 11-11-2022 Influenza vaccination [facility] Start: 05-21-2022 Screening for malignant neoplasm of cervix Cervical Cancer Screening [facility] Start: 03-13-2022 DEPRESSION ASSESSMENT DEPRESSION ASSESSMENT [facility] Start: 2020 HPV TESTING HPV TESTING [facility] Start: 2020 Screening for malignant neoplasm of cervix HPV Testing [facility] Start: 2009 Hepatitis B Vaccine (1 of 3 - 19+ 3-dose series) Hepatitis B Vaccine (1 of 3 - 19+ 3-dose series) [facility] Start: 2009 Pneumococcal vaccination Pneumococcal Vaccine (1 of 2 - PCV) [facility] Start: 2009 Urine microalbumin profile DTAP,TDAP,TD (1 - Tdap) [facility] Start: 2008 Anxiety Screening Anxiety Screening [facility] Start: 2008 Depression Screening Depression Screening [facility] Start: 2008 HEPATITIS C SCREENING HEPATITIS C SCREENING [facility] Start: 2008 Hepatitis C screening Hepatitis C Screening [facility] Start: 2008 HIV SCREENING HIV SCREENING [facility] Start: 2008 HIV screening HIV Screening [facility] Start: 1996 PNEUMOCOCCAL (1 - PCV) PNEUMOCOCCAL (1 - PCV) [facility] Start: 1996 Pneumococcal vaccination Pneumococcal Vaccine (1 of 2 - PCV) [facility] Start: 05-03-1991 COVID-19 VACCINE (#1) COVID-19 VACCINE (#1) [facility] Start: 1990 HEPATITIS B (1 of 3 - 3-dose series) HEPATITIS B (1 of 3 - 3-dose series) [facility] Start: 1990 Hepatitis B Vaccine (1 of 3 - 3-dose series) Hepatitis B Vaccine (1 of 3 - 3-dose series) [facility] Opiates [Mass/volume ] in Urine by Confirmatory method [facility] [facility] Path report.final Dx Spec [facility] Patient Education OB Triage: Ret urn to Hospital or Notify Physician if you Experience: [facility] Work Phone: Patient referral [facility] Work Phone: Transvaginal obstetr ic ultrasonography [facility] Ultrasonography in f irst trimester [facility] Immunizations Immunization Date Immunization Notes Care Provider Fa cility 07-12-2024 tetanus toxoid, redu marlena diphtheria toxoid, and acellular pertussis vaccine, adsorbed No Primary Care Physician [facility] 02-17-2023 tetanus toxoid, redu marlena diphtheria toxoid, and acellular pertussis vaccine, adsorbed No Primary Care Physician [facility] Payers Date Payer Category Payer Self-pay [id number] 2023 Medicaid [id number] 2023 Unknown [id number] 2023 Unknown [id number] 2022 Unknown [id number] .[id number] 1990 Unknown [id number] 2.16.840.1.459934.3.579.2.4 79 1959 Self-pay [id number] Private Health Insurance [facility] *[place] [id number] Private Health Insurance [facility] [id number] Unknown [facility] PACKAGE PLAN [id number] Unknown [id number] 2.16.840.1.146808.3.579.2.4 62 Unknown [id number] 2.16.840.1.691772.3.579.2.4 62 Unknown [id number] 2.16.840.1.959218.3.579.2.4 62 Unknown [id number] 2.16.840.1.123810.3.579.2.4 62 Unknown [id number] 2.16.840.1.402769.3.579.2.4 62 Unknown [id number] 2.16.840.1.165154.3.579.2.4 62 Unknown [id number] 2.16.840.1.780843.3.579.2.4 62 Unknown [id number] 2.16.840.1.062021.3.579.2.4 62 Unknown [id number] 2.16.840.1.137745.3.579.2.4 62 Unknown [id number] 2.16.840.1.094800.3.579.2.4 62 Unknown [id number] 2.16.840.1.509739.3.579.2.4 62 Unknown [id number] 2.16.840.1.547589.3.579.2.4 62 Unknown [id number] 2.16.840.1.737720.3.579.2.4 62 Unknown [id number] 2.16.840.1.505914.3.579.2.4 62 Unknown [id number] 2.16.840.1.147386.3.579.2.4 62 Unknown [id number] 2.16.840.1.780934.3.579.2.4 62 Unknown [id number] 2.16.840.1.021761.3.579.2.4 62 Unknown [id number] 2.16.840.1.126836.3.579.2.4 62 Unknown [id number] 2.16.840.1.350554.3.579.2.4 62 Unknown [id number] 2.16.840.1.801393.3.579.2.4 62 Unknown [id number] 2.16.840.1.651191.3.579.2.4 62 Unknown [id number] 2.16.840.1.608173.3.579.2.4 62 Unknown [id number] 2.16.840.1.070616.3.579.2.4 62 Unknown [id number] 2.16.840.1.913430.3.579.2.4 62 Unknown [id number] 2.16.840.1.018433.3.579.2.4 62 Unknown [id number] 2.16.840.1.176910.3.579.2.4 62 Unknown [id number] 2.16.840.1.753349.3.579.2.4 62 Social History Date Type Detail Facility Start: 06-14-2022 End: 08-11-2024 Tobacco smoking status NHIS Smokes tobacco daily [facility] History of tobacco use Cigarette Smoker C [facility] Start: 06-14-2022 Tobacco use and exposure Smoke less tobacco non-user [facility] Start: 06-14-2022 End: 04-25-2024 Alcohol intake Current drinker of alcohol (finding) [facility] Start: 05-22-2019 History SDOH Alcohol Frequency 4 [facility] Start: 05-22-2019 History SDOH Alcohol Std Drinks 3 [facility] Start: 05-22-2019 History SDOH Social Connections Phone 1 [facility] Start: 05-22-2019 History SDOH Social Connections Membership 2 [facility] Start: 05-22-2019 History SDOH Social Connections Living 8 [facility] Start: 05-22-2019 History SDOH Physica l Activity DPW 7 [facility] Start: 05-22-2019 History SDOH Physica l Activity MPS 15 [facility] Start: 05-22-2019 History SDOH Stress 5 [facility] Start: 06-14-2022 Tobacco Comment 4-5 a day [facility] Start: 1990 Sex Assigned At Not on file C [facility] Start: 10-14-2022 End: 06-09-2023 Tobacco smoking status NHIS Unknown if ever smoked [facility] Start: 1990 Sex Assigned At Female W [facility] Start: 05-22-2019 End: 02-18-2020 History of Social function [facility] Start: 05-22-2019 End: 02-18-2020 Social connection and isolation panel [facility] Do you belong to any clubs or organizations such as hinduism groups, unions, fraternal or athletic groups, or school groups? No [facility] Are you now , , , , never or living with a partner? Living with partner [facility] How often to you hav e a drink containing alcohol? 2-3 time sa week [facility] How many standard dr inks containing alcohol do you have on a typical day? 5 or 6 [facility] How often do you hav e 6 or more drinks on 1 occasion? Weekly [facility] How hard is it for y ou to pay for the very basics like food, housing, medical care, and heating Not hard at all [facility] Do you feel stress - tense, restless, nervous, or anxious, or unable to sleep at night because your mind is troubled all the time - these days [OSQ] Very much [facility] (I/We) worried [facility] (my/our) food would run out before (I/we) got money to buy more. Never true [facility] Start: 12-03-2023 [facility] Start: 12-21-2023 [facility] Start: 06-05-2024 Sex Female (finding) [facility] Goals Date Patient Goal Desired Activity /State Clinical Notes 06-14-2022 to 09-24-2024 Note Date & Type Note Facility 09-24-[address] [facility] 08-15-2024 Note [facility] Medical Records Department [address] [place] [address] Discharge Summary 08/15/24 2234 MR#: [id number] Acct: [id number] Name: DAVID POST Rep #: [id number] : 1990 33 From: Meena Luciano MD PCP: Care Physician,No Primary Status:DIS IN Location: LR294-9 Providers Date of Admission: 08/11/24 Primary Care [...] Up With: Meena Luciano MD When: Call [phone] to make an appointment for an incision [...] Luciano MD; No Primary Care Physician Signed [facility] 08-13-2024 Progress note [facility] 08-13-2024 Progress note Note Date/Time August 13, 2024 4:30pm [facility] Medical Records Department [address] [place] [address] Progress Note - OBGYN 08/13/24 1143 MR#: [id number] Acct: [id number] Name: DAVID POST Rep #:[id number] : 1990 33 From: Meena jenkins MD PCP: Care Physician,No Primary Status :ADM IN Location: [place] [address]-1 Subjective Subjective Patient doing well without complaints. [...] 89.2 H, Lymph % (Auto) 5.1 L, Pondera % (Auto) 4.9, Eos % (Auto) 0.1, [...] Cosigner Signature (if applicable): CC: ~ Signed [facility] Work Phone: 1(152) 763-138706-02-2025 Progress note Author Meena Luciano [facility] Note Date/Time August 12, 2024 9:19a m [facility] Medical Records Department [address] [place] [address] Progress Note - OBGYN 08/12/24 0919 MR#: [id number] Acct: [id number] Name: DAVID POST Rep #:[id number] : 1990 33 From: Meena jenkins MD PCP: Care Physician,No Primary Status :ADM IN Location: [place] [address]-1 Subjective Subjective Patient doing well without complaints. [...] 89.2 H, Lymph % (Auto) 5.1 L, [place] % (Auto) 4.9, Eos % (Auto) 0.1, [...] given 3. rh positive 4. rubella immune 08/12/24 0919 <Electronically signed by Meena Luciano MD> Cosigner Signature (if applicable): CC: ~ Signed [facility] Work Phone: 1(662) 889-498006-02-2025 Progress note [facility] Records Department [address] [place] [address] Progress Note - OBGYN 08/12/24918 MR#: [id number] Acct: [id number] Name: DAVID POST Rep #:[id number] : 1990 33 From: Meena jenkins MD PCP: Care Physician,No Primary Status :ADM IN Location: [place] [address]-1 Subjective Subjective Patient doing well without complaints. [...] 89.2 H, Lymph % (Auto) 5.1 L, [place] % (Auto) 4.9, Eos % (Auto) 0.1, [...] Cosigner Signature (if applicable): CC: ~ Signed [facility]06-02-2025 Discharge summary Author Meena Luciano [facility] Note Date/Time August 12, 2024 1:20a m [facility] Records Department [address] [place] [address] Instructions for Home/Discharge Instructions 08/12/24 0118 MR#: [id number] Acct: [id number] Name: DAVID POST Rep #:[id number] : [...] Up With: Meena Luciano MD When: Call [phone] to make an appointment for an incision [...] CC: No Primary Care Physician ~ Signed [facility] Work Phone: 1(298) 626-377706-02-2025 History and physical note Author Meena Luciano [facility] Note Date/Time August 12, 2024 1:09a m [facility] Medical Records Department [address] [place] [address] H&P Exam - CHANGE MANAGEMENT EXPERT 08/12/24 0101 MR#: [id number] Acct: [id number] Name: DAVID POST Rep #:[id number] : 1990 33 From: Meena jenkins MD PCP: Care Physician,No Primary Status :ADM [facility] - General General Date of Admission: [...] kids Ryan Khan lives with his mom) [facility] housing: house number of children: 2 current occupational status: other current occupation: [employer] current occupational exposures/hazards: No pets and animals: [...] in: walking frequency: 1-2 times per week yesenia/mosque: None seatbelt use: always do you feel safe at home: Yes additional social history: [facility] History 2 Elective abortions Hx Para 1 Spontaneous abortions Hx # Term Pregnancies 1 Ectopic pregnancies Hx # Pregnancies Multiple births # of living children 1 Past Pregnancies Del. Date Name GA/Weeks Outcome Route Bth Weight Gen Labor Lgth Anesthesia Del Locatn Provider FOB 04/29/23 Jason 39 live - full term 6lbs 12oz Male [facility] Mustapha Luciano Delivery Date: 04/29/23 Last Updated by: Dee Dee Dejesus [facility] Visit Details Expected Delivery Route/Plan R C/S [...] lb) 119/72 Negative -?-?-?-?-?-?-?-?-?-?-?-?- Negative 147 -?-?-?-?-?-?-?-?-?-?-?-?- JDesiree- pt was absen t for a weeks [...] COMMENT: PRR, , MANUEL 07/04/24, girl Janusz JOSELYN Dickinson (4) Borderline personality disorder: COMMENT: sees counselor (5) : QUALIFIERS: Weeks of gestation: 38 weeks Qualified Code(s): Z3A.38 - 38 weeks gestation of COMMENT: NIPT with gender, declines carrier. nl anatomy (6) Uterine anomaly: COMMENT: tilted (7) ASCUS with positive high 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al: COMMENT: [place] done repeat pap 08/04 (8) Marijuana smoker: [...] Luciano MD; No Primary Care Physician~ Signed [facility] Work Phone: 1(775) 126-151506-02-2025 Procedure note [facility] Medical Records Department [address] [place] [address] Operative Report 08/12/24108 MR#: [id number] Acct: [id number] Name: DAVID POST Rep #:[id number] : 1990 33 From: Meena jenkins MD PCP: Care Physician,No Primary Status :ADM IN Location: [place] [address] Assessment & Plan (1) delivery delivered: COMMENT: [...] with positive high 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al: COMMENT: [place] done repeat pap 08/04 (10) Marijuana smoker: [...] closed with 3-0Monocryl in a running fashion. Turymw-tm-aomor suture was used on the rectus muscle [...] Description: 3 Vessels Delayed Cord Clamping: Yes Dairy Equipment Mechanic defensive driving instructor: Yes Business Applications Analyst: Krystin Longo Tasks completed by rn first assist: Opening & closing, Retracting and Other (Assisting with delivery of the infant) Additional first assistant manager?: Yes Additional Canal Boat Operator #2: Aleida Payne Tasks completed by first assistant manager #2: Closing and Retracting Additional first assistant manager?: No Complications Complications: No Admit VTE Documentation VTE Present on Admission: No VTE Mechan Device Prophylaxis: SCD's Procedures Urinary/Genital 52xxx-59xxx: 43729 delivery+ Care([facility]) 08/12/24 0118 Cosigner Signature (if applicable): CC: Dr. Meena Luciano MD; No Primary Care Physician~ Signed ADDENDUM by Dr. Meena Luciano MD on 08/12/24 at 0121 Addendum 08/12/24 0121 Cosigner Signature (if applicable): cc: Dr. Meena Luciano MD; No Primary Care Physician ~* Signed [facility]06-02-2025 Discharge summary [facility] Medical Records Department [address] [place] [address] Instructions for Home/Discharge Instructions 08/12/24 0118 MR#: [id number] Acct: [id number] Name: DAVID POST Rep #:[id number] : 1990 33 From: Meena jenkins MD PCP: Isidro PhysicianMahsa Primary Status :ADM IN Discharge Instructions Diet [...] Up With: Meena Luciano MD When: Call [phone] to make an appointment for an incision [...] CC: No Primary Care Physician ~ Signed [facility]06-02-2025 History and physical note [facility] Medical Records Department [address] [place] [address] H&P Exam - CHANGE MANAGEMENT EXPERT 08/12/24 0101 MR#: [id number] Acct: [id number] Name: DAVID POST Rep #:[id number] : 1990 33 From: Meena jenkins MD PCP: Care Physician,No Primary Status :ADM IN [facility] H[facility] - General General Date of Admission: [...] in: walking frequency: 1-2 times per week yesenia/mosque: None seatbelt use: always do you feel safe at home: Yes additional social history: [facility] History 2 Elective abortions Hx Para 1 Spontaneous abortions Hx # Term Pregnancies 1 Ectopic pregnancies Hx # Pregnancies Multiple births # of living children 1 Past Pregnancies Del. Date Name GA/Weeks Outcome Route Bth Weight Inf[facility]29[facility]23 Jason 39 live - full term 6lbs 12oz Male [facility] Mustapha Luciano Delivery Date: 04/29/23 Last Updated by: Dee Dee Dejesus [facility] Visit Details Expected Delivery Route/Plan R C/S [...] oz) 98/64 Negative -?-?-?-?-?-?-?-?-?-?-?-?- Negative 155 -?-?-?-?-?-?-?-?-?-?-?-?- -No VB, LOF. G ood FM. Denies concerns [...] trimester COMMENT: PRR, , MANUEL 07/04/24, girl [facility] JOSELYN Gomez (4) Borderline personality disorder: COMMENT: sees counselor (5) : QUALIFIERS: Weeks of gestation: 38 weeks Qualified Code(s): Z3A.38 - 38 weeks gestation of COMMENT: NIPT with gender, declines carrier. nl anatomy (6) Uterine anomaly: COMMENT: tilted (7) ASCUS with positive high 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al: COMMENT: [place] done repeat pap 08/04 (8) Marijuana smoker: [...] Luciano MD; No Primary Care Physician~ Signed [facility]05-29-2025 Progress [facility] [address] [facility] [address], [address] [place] [address] OFFICE VISIT Date of Service: 08/08/24 MR#: [id number] Acct: [id number] Name: DAVID POST Rep #: [id number] : 1990 Provider: REECE Marin Age/Sex: 33/F [place] [facility] Status: Signed Intake Vital Signs 07/12/24 10:04 08/02/24 11:21 08/08/24 09:09 Height 5 ft 5 in 5 ft 5 in 5 ft 5 in Weight: 194 lb 4 oz BMI 32.3 BP 131/78 H Intake Visit Reasons: 38 wk ob Chief Complaint: 38wk OB Bin Worker Required: No Is patient in pain?: No [...] kids Ryan Khan lives with his mom) [facility] Jason housing: house number of children: 2 current occupational status: other current occupation: [employer] current occupational exposures/hazards: No pets and animals: [...] in: walking frequency: 1-2 times per week yesenia/mosque: None seatbelt use: always do you feel safe at home: Yes additional social history: [facility] History 2 Elective abortions Hx Para 1 Spontaneous abortions Hx # Term Pregnancies 1 Ectopic pregnancies Hx # Pregnancies Multiple births # of living children 1 Past Pregnancies Del. Date Name GA/Weeks Outcome Route Bth Weight Infant Gen Labor Lgth Anesthesia Del Locatn Provider FOB 04/29/23 Jason 39 live - full term 6lbs 12oz Male [facility] Mustapha Luciano Delivery Date: 04/29/23 Last Updated by: Dee Dee Dejesus [facility] nrfhts HPI 38 wk ob Details: [...] no vb/crampi ng. good fm. labs today. [facility] today. 06/14/24 -?-?-?-?-?-?-?-?-?-?-?-?- 30w 2d [...] Monitoring, Signs and Symptoms of Preeclampsia and [place] Education ROS Const Reports system reviewed and [...] scheduled for 08/21 @ 7:15 with JV. ( out of office allweek) (3) Obesity affecting : Status: Acute Qualifiers: Obesity type affecting : unspecified obesity Trimester: second trimester Qualified Code(s): O99.212 - Obesity complicating , second trimester Comment: A1C (4) Supervision of high-risk : Status: Acute Qualifiers: Trimester: second trimester Qualified Code(s): O09.92 - Supervision of high risk , unspecified, second trimester Comment: PRR, , MANUEL 07/04/24, girl Janusz JOSELYN Dickinson (5) : Status: Acute Qualifiers: Weeks of gestation: 38 weeks Qualified Code(s): Z3A.38 - 38 weeks gestation of Comment: NIPT with gender, declines carrier. nl anatomy (6) Borderline personality disorder: Status: Acute Comment: sees counselor (7) Uterine anomaly: Status: Acute Comment: tilted (8) ASCUS with positive high 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al: Status: Acute Comment: [place] done repeat pap 08/04 (9) Marijuana smoker: [...] GA appropriate handout given. 08/08/24 0939 s REECE> Date _ Anna Marin CNM Cosigner Signature: Date (if applicable) CC: ~ [facility]03-17-2025 Evaluation note* Diagnosis Onset Date Resolution Status [...] Follow-Up noneact puneet September 24, 2024 10:54am [facility] Work Phone: 1(315) 398-657703-03-2025 Evaluation note* Diagnosis Onset Date Resolution Status [...] Uterine rupture acute August 11, 2024 11:33pm [facility] Work Phone: 1(951) 442-899102-13-2025 NoteHNO ID: [id number] Author: NICOLÁS MALIK APRN.[employer] MANU[employer]CTURING ENGINEER Service: ? Author Type: Nurse Practitioner Type: [...] RELIEF) 50 mcg/actuation nasal spray Use 1 [place] in each nostril once daily. (Patient not [...] of care. This note was generated using EverySignal software. It may contain errors in wording, punctuation, or spelling. Nicolás Malik APRN.[facility]02-13-2025 History of Present illness Narrative* Nicolás Malik APRN.[facility] - 04/25/2024 4:47 PM EST Subjective HPI [...] RELIEF) 50 mcg/actuation nasal spray Use 1 [place] in each nostril once daily. (Patient not [...] of care. This note was generated using EverySignal software. It may contain errors in wording, punctuation, or spelling. Nicolás Malik APRN.[facility] documented in this encounterMer[facility]02-03-2025 Evaluation note* Diagnosis Onset Date Resolution Status [...] Uterine anomaly acute August 08, 2024 9:07am [facility] Work Phone: 1(319) 357-177702-03-2025 Evaluation note* Diagnosis Onset Date Resolution Status [...] Uterine rupture acute August 11, 2024 11:33pm [facility] Work Phone: 1(918) 921-639201-31-2025 Instructions* Patient Instructions* Shannon Newton APRN.[employer]UR[employer] ENGINEER - 04/12/2024 4:02 PM EST RESPIRATORY INFECTION [...] spread by coughs, sneezes, anddirect contact, especially vlnh-vr-clxv. A respiratory tract infection usually clears up [...] 102 F (39 C). documented in this encounterMercy [facility]01-31-2025 NoteHNO ID: [id number] Author: SHANNON NEWTON APRN.[employer]AN MANUFACTURING ENGINEER Service: ? Author Type: Nurse Practitioner Type: [...] RELIEF) 50 mcg/actuation nasal spray Use 1 [place] in each nostril once daily. therapeutic multivitamin-minerals [...] Patient agreeable to treatment plan. Shannon Newton APRN.[facility]01-31-2025 History of Present illness Narrative* Shannon Newton APRN.[facility] - 04/12/2024 3:54 PM EST CC: Patient [...] RELIEF) 50 mcg/actuation nasal spray Use 1 [place] in each nostril once daily. therapeutic multivitamin-minerals [...] Patient agreeable to treatment plan. Shannon Newton APRN.LEAN MANUFACTURING ENGINEER documented in this encounterMercy Health [facility]12-13-2024 Evaluation note* Diagnosis Onset Date Resolution Status Admit Date 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 acute February 22, 2 024 9:34am Borderline personality disorder acute February 22 024 9:34am Depression acute February 23, 2024 9:34am Marijuana smoker acute February 23, 2024 9:34am Obesity affecting acute February 23, 2024 9:34am Positive GBS test acute Decembe r 2023 9:34am acute February 23, 2024 9:34am Previous section acute February 23, 2024 9:34am Supervision of high-risk acute February 22, 2 024 9:34am 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, 2024 [...] 2024 2:31pm Uterine anomaly acute May 2:31pm [facility] Work Phone: 1(759) 396-997410-15-2024 NoteHNO ID: [id number] Author: NICOLÁS MALIK APRN.[employer]AN MANUFACTURING ENGINEER Service: ? Author Type: Nurse Practitioner Type: [...] RELIEF) 50 mcg/actuation nasal spray Use 1 [place] in each nostril once daily. FAMILY HISTORY [...] of care. This note was generated using EverySignal software. It may contain errors in wording, punctuation, or spelling. Nicolás Malik [facility]10-[facility]2024 History of Present illness Narrative* Nicolás Malik APRN.[facility] - 12/26/2023 1:00 PM EDT Subjective HPI [...] RELIEF) 50 mcg/actuation nasal spray Use 1 [place] in each nostril once daily. FAMILY HISTORY [...] of care. This note was generated using EverySignal software. It may contain errors in wording, punctuation, or spelling. Nicolás Malik APRN.[facility] documented in this encounterMercy Health Tiffin Hospital06-25-2024 Instructions* Patient Instructions* Dwight Duran PA - [...] to thin out mucus documented in this encounterMercy Health Tiffin Hospital06-25-2024 NoteHNO ID: [id number] Author: DWIGHT UDRAN PA Service: ? Author Type: Physician Canal Boat Operator Type: Progress Notes Filed: 09/05/2023 10:16 Note Text: This note was created using LearnZillion. Subjective David Post is a 32 year [...] detail warranting prompt ER evaluation. Dwight Duran [facility]06-25-2024 History of Present illness Narrative* Dwight Duran PA - 09/05/2023 10:07 AM EDT This note was created using Bellbrook Labsriter. Subjective David Post is a 32 year [...] allergies. MEDICATIONS MULTIVITAMIN ORAL Take by mouth. 04/01, , 1-20 mg-mcg per tablet TAKE 1 [...] evaluation. ANA MARIA Wesley documented in this encounterMercy Health Tiffin Hospital02-23-2024 Instructions* Patient Instructions* Myah Newell APRN.[facility] - 05/05/2023 11:56 AM EST ASSESSMENT/PLAN: 1. [...] or mouth and then touchesanother person directly (ckaj-lf-djkh contact) or indirectly (lbbt-lf-mxbiyl, such as doorknob, telephone, toys). It is [...] every four months on our web site ([email or web address]). Information below was obtained from Up to date Last literature review version 19.2: July 2010 This topic last updated: October 28, 2009 documented in this encounterMercy Health Tiffin Hospital02-23-2024 NoteHNO ID: [id number] Author: MYAH NEWELL APRN.[facility] Service: ? Author [...] allergies. MEDICATIONS MULTIVITAMIN ORAL Take by mouth. JUNE04/01, , 1-20 mg-mcg per tablet TAKE 1 [...] A MOLECULAR (POC) ALEXY Masters TEACHING PROVIDER (Physician/PA/[employer] SALES AND LENDING TEAM MEMBER) NOTE OF PERSONAL INVOLVEMENT IN CARE: I have personally seen and examined the patient and performed the medical decision-making components. I have reviewed the Advanced Practice Registered Nurse ([employer] SALES AND LENDING TEAM MEMBER) Student's documentation and verified the findings in the note as written. Any additions or changes are noted in bold/italics. Signature: Myah Newell Date: 05/05/2023 Time: 1:05 [facility]02-23-2024 History of Present illness Narrative* Martha Garcia [...] A MOLECULAR (POC) ALEXY Masters TEACHING PROVIDER (Physician/PA/[employer] SALES AND LENDING TEAM MEMBER) NOTE OF PERSONAL INVOLVEMENT IN CARE: I have personally seen and examined the patient and performed the medical decision-making components. I have reviewed the Advanced Practice Registered Nurse ([employer] SALES AND LENDING TEAM MEMBER) Student's documentation and verified the findings in the note as written. Any additions or changes are noted in bold/italics. Signature: Myah Newell Date: 05/05/2023 Time: 1:05 PM documented in this encounter[facility]24 Progress note Author Meena Luciano [facility] April 30, 2023 11:12am Note Date/Time April 29, 2023 5:16am [facility] Medical Records Department [address] [place] [address] Progress Note - OBGYN 04/29/23 0515 MR#: [id number] Acct: [id number] Name: DAVID POST Rep #:[id number] : 1990 32 From: Meena jenkins MD PCP: Care Physician,No Primary Status :ADM IN Location: [place] [address] Subjective Subjective Patient doing well without complaints. [...] Cosigner Signature (if applicable): CC: ~ Signed [facility] Work Phone: 1(728) 580-903402-18-2024 Progress note Author Meena Luciano [facility] April 30, 2023 8:51am Note Date/Time April 30, 2023 8:51am [facility] Medical Records Department [address] [place] [address] Progress Note - OBGYN 04/30/23 0851 MR#: [id number] Acct: [id number] Name: DAVID POST Rep #:[id number] : 1990 32 From: Meena jenkins MD PCP: Care Physician,No Primary Status :ADM IN Location: [place] [address] Subjective Subjective Patient doing well without complaints. [...] Cosigner Signature (if applicable): CC: ~ Signed [facility] Work Phone: 1(666) 839-427702-17-2024 Procedure [facility] 04-28-2023 Discharge summary Author Meena Luciano [facility] April 28, 2023 6:35pm Note Date/Time April 28, 2023 6:32pm [facility] Medical Records Department [address] [place] [address] Instructions for Home/Discharge Instructions 04/28/23 1832 MR#: [id number] Acct: [id number] Name: DAVID POST Rep #:[id number] : [...] Up With: Meena Luciano MD When: Call [phone] to make an appointment for an incision check in 1-2 weeks. Test Results: Test results from this visit will be discussed in further detail at your follow- up appointment, if applicable. Discharge Plan Admission Admit Date/Time: 04/28/23 03:03 Attending Provider: Meena Luciano Primary Care Provider: Isidro Physician,Mahsa Primary Discharge Orders/Prescriptions Prescriptions: New oxycodone-acetaminophen [...] CC: No Primary Care Physician ~ Signed [facility] Work Phone: 1(707) 776-189402-16-2024 Progress note Author Meena Luciano [facility] April 28, 2023 5:33pm Note Date/Time April 28, 2023 5:33pm [facility] Medical Records Department [address] [place] [address] Progress Note 04/28/23 1729 MR#: [id number] Acct: [id number] Name: SINCEREDAVID LÓPEZ Rep #:[id number] : 1990 32 From: Meena jenkins MD PCP: Isidro Physician,No Primary Status :ADM IN Location: [place] [id number] Progress Note patient evaluted for intermittent variables [...] Cosigner Signature (if applicable): CC: ~ Signed [facility] Work Phone: 1(825) 770-783102-16-2024 History and physical note Author Meena Luciano [facility] April 28, 2023 5:05am Note Date/Time April 28, 2023 5:05am [facility] Medical Records Department [address] [place] [address] H&P Exam - CHANGE MANAGEMENT EXPERT 04/28/23 0501 MR#: [id number] Acct: [id number] Name: DAVID POST Rep #:[id number] : 1990 32 From: Meena jenkins MD PCP: Care Physician,No Primary Status :ADM IN Location: [id number] HPI - General General Date of Admission: [...] 1 current occupational status: employed current occupation: [employer] current occupational exposures/hazards: Yes (dust dirt- has N95 to wear) pets and animals: Yes (not managing litter box) pets and animals: cat(s) history of recent travel: Yes ([place]) out of state: Yes out of country: [...] physical activity do you participate in: none yesenia/mosque: None seatbelt use: always do you feel safe at home: Yes 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 History 1 Elective abortions Hx Para 0 [...] , MANUEL 04/21/23 Boyfriend-Mustapha(Bill 8yo-lives with them parts clerk, [id number] with mother) (5) : QUALIFIERS: Weeks of [...] bps, labs WNL I have reviewed the [facility] and made any clinically relevant updates. 04/28/23 0500 <Electronically signed by Meena Luciano MD> Cosigner Signature (if applicable): CC: Dr. Meena Luciano MD; No Primary Care Physician~ Signed [facility] Work Phone: 1(407) 847-789004-04-2023 Instructions* Patient Instructions* Sherri Seaman APRN.LEAN MANUFACTURING ENGINEER - 06/14/2022 1:29 PM EDT Rest, ice, [...] : AMAN HELMS MD documented in this encounterMer[facility]04-04-2023 History of Present illness Narrative* Traci Ayala, RT(R) - 06/14/2022 1:20 PM EDT Radiology [...] 14, 2022 1:06 PM documented in this encounterMercy Health [facility]04-04-2023 History of Present illness Narrative* Sherri Seaman APRN.LEAN MANUFACTURING ENGINEER - 06/14/2022 12:58 PM EDT Subjective The history is provided by the patient. No cook night was used. HPI David Post is a [...] Wt 75.3 kg (166 lb) LMP 05/10/2019 WjC933% BMI (P) 28.69 kg/m Social History Tobacco Use Smoking status: Every Day Types: Cigarettes Smokeless tobacco: Never Tobacco comments: 4-5 a day Vaping Use Vaping Use: Never used Substance Use Topics Alcohol use: Yes Drug use: Yes Types: Marijuana No past medical history on file. I have confirmed and edited as necessary, the [facility] Review of Systems Constitutional: Negative for chills [...] are unremarkable. IMPRESSION: Negative Interpreted by : AAMN HELMS MD Diagnosis and treatment plan were discussed and questions were answered to the patient's satisfaction. Pt acknowledged understanding of concepts and follow up plan. Specific signs and symptoms that would indicate the need for higher level of care were discussed indetail warranting prompt ER evaluation. Sherri Seaman APRN.SOFIE documented in this encounterMercy [facility] HospitalEvaluation note* Diagnosis Injury of right hand, initial encounter- Primary Pain of finger of right hand Pain in limb documented in this encounter [facility]* Diagnosis Onset Date Resolution Status Asthma acute Depression acute Marijuana smoker acute acute Supervision of high-risk acute Asthma acute Depression acute Marijuana smoker acute acute Supervision of high-risk acute [facility] Work Phone: Evaluation note* Diagnosis Onset Date Resolution Status Asthma acute Depression acute Marijuana smoker acute acute Supervision of high-risk acute Asthma acute Depression acute Marijuana smoker acute acute Supervision of high-risk acute Asthma acute Depression acute Marijuana smoker acute acute Supervision of high-risk acute [facility] Work Phone: Evaluation note* Diagnosis Onset Date Resolution Status Asthma acute Depression acute Marijuana smoker acute acute Supervision of high-risk acute Abscess of nipple acute Asthma acute Depression acute Marijuana smoker acute acute Supervision of high-risk acute Frequency of urination resol liat Abscess of nipple acute Asthma acute Depression acute Marijuana smoker acute acute Supervision of high-risk acute [facility] Work Phone: Evaluation note* Diagnosis Onset Date [...] smoker acute acute Supervision of high-risk acute [facility] Work Phone: evaluation note* Diagnosis Onset Date [...] of acute Congestion of nasal sinus ac sumit Cough acute COVID acute Fatigue acute Fever acute [facility] Work Phone: Evaluation note* Diagnosis Onset Date [...] of membranes) resolved Supervision of high-risk resolved [facility] Work Phone: Evaluation note* Diagnosis Sore throat- Primary Acute pharyngitis documented in this encounter [facility]* Diagnosis Onset Date Resolution Status Asthma [...] resolved delivery delivered acute Routine Follow-Up noneactive [facility] Work Phone: Evaluation note* Diagnosis URI, acute- Primary Acute upper respiratory infections of unspecified site Sore throat Acute pharyngitis documented in this encounter [facility]* Diagnosis Injury of right hand, initial encounter Pain of finger of right hand Pain in limb documented in this encounter [facility]* Diagnosis Lower resp. tract infection- Primary Other diseases of respiratory system, not elsewhere classified documented in this encounter [facility]* Diagnosis URI, acute- Primary Acute upper respiratory infections of unspecified site documented in this encounter [facility]* Diagnosis Acute otitis media, right- Primary Unspecified otitis media documented in this encounter [facility] HospitalProgress note Author Anna Marin [facility] Note Date/Time August 08, 2024 9:39a m [facility] [address], [address] [place] [address] OFFICE VISIT Date of Service: 08/08/24 MR#: [id number] Acct: [id number] Name: DAVID POST Rep #: [id number] : 1990 Provider: REECE Marin Age/Sex: 33/F [place] [facility] Status: Signed Intake Vital Signs 07/12/24 10:04 08/02/24 11:21 08/08/24 09:09 Height 5 ft 5 in 5 ft 5 in 5 ft 5 in Weight: 194 lb 4 oz BMI 32.3 BP 131/78 H Intake Visit Reasons: 38 wk ob Chief Complaint: 38wk OB Bin Worker Required: No Is patient in pain?: No [...] kids Ryan Khan lives with his mom) [facility] Jason housing: house number of children: 2 current occupational status: other current occupation: [employer] current occupational exposures/hazards: No pets and animals: [...] in: walking frequency: 1-2 times per week yesenia/mosque: None seatbelt use: always do you feel safe at home: Yes additional social history: [facility] [employer] History 2 Elective abortions Hx Para 1 Spontaneous abortions Hx # Term Pregnancies 1 Ectopic pregnancies Hx # Pregnancies Multiple births # of living children 1 Past Pregnancies Del. Date Name GA/Weeks Outcome Route Bth Weight Gen Labor Lgth Anesthesia Del Locatn Provider FOB 04/29/23 Jason 39 live - full term 6lbs 12oz Male [facility] Mustapha Luciano Delivery Date: 04/29/23 Last Updated by: Dee Dee Dejesus [facility] nrfhts HPI 38 wk ob Details: [...] VB, LOF. G ood FM. Denies concerns 03/03/25 -?-?-?-?-?-?-?-?-?-?-?-?- 25w 5d 181 lb 2 oz [...] vb lof go od fm no reulgar [facility] 06/24/24 -?-?-?-?-?-?-?-?-?-?-?-?- 31w 5d 183 lb 6 [...] Monitoring, Signs and Symptoms of Preeclampsia and [place] [employer] ROS Const Reports system reviewed and [...] scheduled for 08/21 @ 7:15 with JV. ( out of office all week) (3) Obesity affecting : Status: Acute Qualifiers: Obesity type affecting : unspecified obesity Trimester: second trimester Qualified Code(s): O99.212 - Obesity complicating , second trimester Comment: A1C (4) Supervision of high-risk : Status: Acute Qualifiers: Trimester: second trimester Qualified Code(s): O09.92 - Supervision of high risk , unspecified, second trimester Comment: PRR, , MANUEL 07/04/24, girl Janusz JOSELYN Dickinson (5) : Status: Acute Qualifiers: Weeks of gestation: 38 weeks Qualified Code(s): Z3A.38 - 38 weeks gestation of Comment: NIPT with gender, declines carrier. nl anatomy (6) Borderline personality disorder: Status: Acute Comment: sees counselor (7) Uterine anomaly: Status: Acute Comment: tilted (8) ASCUS with positive high 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al: Status: Acute Comment: [place] done repeat pap 08/04 (9) Marijuana smoker: [...] Cosigner Signature: Date (if applicable) CC: ~ [facility] Work Phone: Progress note Author Katelin Montejo [facility] Note Date/Time September 24, 2024 11:5 5am [facility] [address] [place] [address], [address] [place] [address] OFFICE VISIT Date of Service: 09/24/24 MR#: [id number] Acct: [id number] Name: DAVID POST Rep #: [id number] : 1990 Provider: Dr. Chanel Goins DO Age/Sex: 33/F [place] [facility] [place]: Signed Intake Vital Signs 05/27/24 14:51 08/11/24 20:18 08/27/24 11:12 09/24/24 11:07 Height 5 ft 5 in 5 ft 3 in 5 ft 3 in 5 ft 3 in Weight: 173 lb BMI 30.6 BP 106/71 Intake Visit Reasons: visit (obstetrics) Chief Complaint: visit Bin Worker Required: No Is patient in pain?: No [...] kids Ryan Khan [facility] with his mom) [facility] house number of children: 2 current occupational status: other current occupation: [employer] current occupational exposures/hazards: No pets and animals: [...] in: walking frequency: 1-2 times per week yesenia/mosque: None seatbelt use: always do you feel safe at home: Yes additional social history: JOSELYN- Mustapha- [facility] [employer] [facility] History 2 Elective abortions Hx Para 2 Spontaneous abortions Hx # Term Pregnancies 2 Ectopic pregnancies Hx # Pregnancies Multiple births # of living children 2 Past Pregnancies Del. Date Name GA/Weeks Outcome Route Bth Weight Gen Labor Lgth Anesthesia Del Locatn Provider FOB 04/29/23 Jason 39 live - full term 6lbs 12oz Male [facility] Mustapha Luciano 08/12/24 Callahan 38 live - full term 6lb 1oz Female general [facility] DELPHINE Luciano Delivery Date: 04/29/23 Last Updated by: Dee Dee Dejesus [facility] Delivery Date: 08/12/24 Last Updated by: Katelyn [...] somewhat difficult Source: Developed by Drs. Iban Gates, Cassandra Marin, Jesse Tobar and colleagues, with an educational alber from [employer]. Post HPI Routine Follow-Up: Details: DAVID POST is a 33 year old who presents for her post visit. Her husbandhas not been as supportive as she hoped. She is staying home with the kids for now due to high costs of child care counselor. Infant Feeding: Breast Menses resumed: Yes [place] since delivery: Yes Emotional Support: No Last [...] healthy appearing, comfortable and no acute distress [facility] Head: normal to inspection Neck Neck: normal [...] 3RF 09/24/24 1155 <Electronically signed by Katelin Vand e Velde DO> Date _ Katelin Gerry Montejo DO [facility] Signature: Date (if applicable) CC: ~ [facility] Work Phone: Reason for referral (narrative)* Diagnostic Procedure Only (Urgent) - Pending Review Specialty Diagnoses / Procedures Referred By Contac t Referred To Contact XR IMAGING Diagnoses Injury of right hand, initial encounter Pain of finger of right hand Procedures XR HAND GENERAL 3V PA/LAT/OBL RIGHT RADEX HAND MINIMUM 3 VIEWS Sherri Seaman APRN.CNP [address] [place] [address] Xr Imaging Referral ID Status Reason Start Date Expiration Date Visits Requested Visits Authorized [id number] Pending Review Auto-Generat ed Referral 06/14/2022 07/14/2023 1 1 [facility] for referral (narrative)* Diagnostic Procedure Only (Urgent) - Denied Specialty Diagnoses / Procedures Referred By Contac t Referred To Contact XR IMAGING Diagnoses Injury of right hand, initial encounter Pain of finger of right hand Procedures XR HAND GENERAL 3V PA/LAT/OBL RIGHT RADEX HAND MINIMUM 3 VIEWS Sherri Seaman APRN.LEAN MANUFACTURING ENGINEER [address] [place] [address] [place] [address] Referral ID Status Reason Start Date Expiration Date V isits Requested Visits Authorized [id number] Denied Auto-Generate d Referral 06/14/2022 07/14/2023 1 0 [facility] for referral (narrative)No reason for referral information availableWSelect [facility] Work Phone: Reason for visit Narrative* Diagnostic Procedure Only (Urgent) - Denied Specialty Diagnoses / Procedures Referred By Contac t Referred To Contact XR IMAGING Diagnoses Injury of right hand, initial encounter Pain of finger of right hand Procedures XR HAND GENERAL 3V PA/LAT/OBL RIGHT RADEX HAND MINIMUM 3 VIEWS Sherri Seaman APRN.LEAN MANUFACTURING ENGINEER [address] [place] [address] [place] [address] Referral ID Status Reason Start Date Expiration Date V isits Requested Visits Authorized [id number] Denied Auto-Generate d Referral 06/14/2022 07/14/2023 1 0 [facility] Summary Purpose Family History No Family History Records FoundNo Family History Records FoundNo Family History Records FoundNo Family History Records Found Advance Directives No Advanced Directives Records Found Advance Directive Response Recorded Date/ Time Living Will No April 28 2:44am Power of Card Setter No April 28, 2023 2:44am Advance Directive Response Recorded Date/ Time Living Will No April 28 3:44am Power of Card Setter No April 28, 2023 3:44am Advance Directive Response Recorded Date/ Time Do you have a Healthcare Power of Card Setter? No August 12, 2024 1:41am Chief Complaint [...] 2024 10:5 8am Obesity affecting May 13, 2 025 10:58am Positive GBS test May 13, [...] 2024 10:5 8am Obesity affecting May 13, 2 025 10:58am Positive GBS test May 13, [...] 11, 2024 11:33 pm delivery delivered August 27, 2 025 11:05am Routine Follow-Up September 24, 2024 10:54am Additional Source Comments INFORMATION SOURCE (unrecogn ized section and content) DATE CREATED AUTHOR 09/05/2017 [facility] DATE CREATED AUTHOR AUTHOR'S ORGANIZ ATION 03/30/2024 [facility] DATE CREATED AUTHOR AUTHOR'S ORGANIZ ATION 04/28/2024 [facility] DATE CREATED AUTHOR AUTHOR'S ORGANIZ ATION 09/25/2024 [facility] Source Comments (unrecognize d section and content) In the event this informatio n is protected by the Federal Confidentiality of Alcohol and Drug Abuse Patient Records regulations: The Federal rules restrict any use of the information to criminally investigate or prosecute any alcohol or drug abuse patient.[facility] HospitalIn the event this information is protected by the Federal Confidentiality of Alcohol and Drug Abuse Patient Records regulations: The Federal rules restrict any use of the information to criminally investigate or prosecute any alcohol or drug abuse patient.[facility] HospitalIn the event this information is protected by the Federal Confidentiality of Alcohol and Drug Abuse Patient Records regulations: The Federal rules restrict any use of the information to criminally investigate or prosecute any alcohol or drug abuse patient.[facility] HospitalIn the event this information is protected by the Federal Confidentiality of Alcohol and Drug Abuse Patient Records regulations: The Federal rules restrict any use of the information to criminally investigate or prosecute any alcohol or drug abuse patient.[facility] HospitalIn the event this information is protected by the Federal Confidentiality of Alcohol and Drug Abuse Patient Records regulations: The Federal rules restrict any use of the information to criminally investigate or prosecute any alcohol or drug abuse patient.[facility] HospitalIn the event this information is protected by the Federal Confidentiality of Alcohol and Drug Abuse Patient Records regulations: The Federal rules restrict any use of the information to criminally investigate or prosecute any alcohol or drug abuse patient.[facility] HospitalIn the event this information is protected by the Federal Confidentiality of Alcohol and Drug Abuse Patient Records regulations: The Federal rules restrict any use of the information to criminally investigate or prosecute any alcohol or drug abuse patient.[facility] Reason for Visit (unrecogniz ed section and content) Reason Comments Trauma Right hand ring fing er, closed in car door Specialty Diagnoses / Procedures Referred By Contac t Referred To Contact Family Medicine / [facility] Diagnoses RM 10 right ring finger injury, slammed in car door today Procedures EST SAME DAY Self Sherri Seaman, [employer] SALES [employer] LENDING TEAM MEMBER.LEAN MANUFACTURING ENGINEER [address] [place] [address] Referral ID Status Reason Start Date Expiration Date Visits Re quested Visits Authorized [id number] Denied 06/14/2022 09/12/2022 1 0 Reason Comments [...] End: February 23, 2024 Dr. Katelin Goins , Attending Provider Activ e Start: February 23, [...] 2024 End: April 15, 2024 Mary Joya NP, NP-C Attending Provider Active Start: April 15, 2024 [...] End: September 24, 2024 Dr. Katelin Goins , DO Attending Provider Activ e Start: September [...] BE BASED ON THE PRIMARY CLINICAL RECORDS. M/A-COM [facility]. provides no warranty or guarantee of the accuracy or completeness of information in this document.
--- NOTE | 2024-09-28 11:44 | CT_ITS ---
PROCEDURE: PELVIS WITHOUT IV CONTRAST 09/28/2024 REASON FOR EXAM: WOUND EVAL TECHNIQUE: PELVIS WITHOUT IV CONTRAST One or more dose reduction techniques were used (e.g., Automated exposure control, adjustment of the mA and/or kV according to patient size, use of iterative reconstruction technique). RADIATION DOSE SUMMARY: DLP: 1000 mGycm COMPARISON: None. FINDINGS: Visualization is limited without the use of IV contrast. Soft Tissues: Minimal cutaneous and subcutaneous thickening along the ventral lower abdomen. No fluid collection or wound dehiscence. Lower pelvis: The urinary bladder is decompressed. The visualized lower abdominal loops are normal caliber. Normal appendix. Bones: Unremarkable. CT/Pelvis without IV Contrast IMPRESSION: Minimal cutaneous and subcutaneous thickening along the ventral lower abdomen. Reading Location: [id number]
[2024-09-28 12:28] LABS: Hematocrit 36.7 % (37-47); Hemoglobin 12.3 g/dL (12.0-15.0); Immature Granulocytes Count 0.020 X10^3/uL (0.0-0.0); Mean Corp Hgb Conc 33.5 g/dL (32-36); Mean Corpuscular Volume 92.9 fL (81-99); Mean Platelet Vol. 10.5 fl (6.2-12.0); NRBC Flagged by Analyzer 0 % (0-5); Platelet Count 262 K/mm3 (150-450); RBC Distribution Width CV 12.1 % (11.6-14.6); RBC Distribution Width SD 41.8 fl (35.1-43.9); Red Blood Count 3.95 M/mm3 (4.2-5.4); White Blood Count 6.9 K/mm3 (4.4-11.0)
--- NOTE | 2024-09-28 12:28 | EDS_ITS ---
HPI History of Present Illness Chief Complaint: Other, Pain/Inj Narrative Narrative: Referred to ED by [employer]INEER for evaluation. She is 7 weeks by C- section, she reported she had a uterine rupture that was repaired during that time. She has had her second follow-up earlier this week. She states yesterday wound opened up with drainage. This morning had a temp of 100. No cough no urinary symptoms. Mild discomfort area. She called the on-call was referred to the ED for evaluation. Currently breast-feeding. Allergies to bees. She denied any strenuous activities or any heavy lifting [facility] Medical History Adopted depression Depression delivery delivered Borderline personality disorder Marijuana abuse Uterine anomaly Trauma Anxiety History of asthma History of back pain History of anemia Home Medications ?Medication ?Instructions ?Recorded ?Last Taken ?Type multivitamin no.47-iron fum 27 1 cap PO DAILY pregnanc y 09/02/22 04/27/23 History mg-folate no.1 1 mg-dha 300 mg capsule (PNV-DHA) escitalopram oxalate 5 mg tablet 5 mg PO QDAY #30 tabs 09/24/24 Unknown Rx (Lexapro) norethindrone (contraceptive) 0.35 0.35 mg PO QDAY #84 tabs 09/24/24 Unknown Rx mg tablet (Senia) buspirone 10 mg tablet 5 mg PO BID 09/28/24 Unknown History cephalexin 500 mg capsule 500 mg PO Q12 #14 CAPSULES 0 09/28/24 Unknown Rx Allergy/AdvReac Type Severity Reaction Status Date / Time bee venom protein (honey Allergy Hives Verified 09/28/24 11:14 bee) (bee sting) Social History adopted: Yes household members: significant other, children and other details: JOSELYN Luciano (has two kids Ryan Khan lives with his mom) [facility] number of children: 2 current occupational status: other current occupation: [employer], [employer] current occupational exposures/hazards: No pets and animals: Yes (not managing litter box) pets and animals: cat(s) leisure activities: exercise history of recent travel: No sexually active: Yes Smoking Status: Current every day smoker tobacco type: cigarettes Tobacco: How many years used: 8 quit status: quit date established alcohol intake: never substance use type: marijuana and other details: last Oct 2022, counseling provided. Pt agreeable to drug testing well-balanced diet: daily or most days eating out: rarely or never during the past year weight has: decreased > 10 lbs what type of physical activity do you participate in: walking frequency: 1-2 times per week yesenia/catholic: None seatbelt use: always do you feel safe at home: Yes additional social history: [facility] ROS ED Constitutional Constitutional ED: Reports fever(s) Cardiovascular Cardiovascular: Denies chest pain Respiratory/Chest Respiratory/Chest: Denies cough Gastrointestinal Gastrointestinal: Denies diarrhea or vomiting Musculoskeletal Musculoskeletal: Denies none Integumentary Reports wounds; Denies rash Neurologic Neurologic: Denies weakness EXAM Physical Exam Const Vital Signs: 09/28/24 11:11 09/28/24 11:11 09/28/24 11:13 Temperature 98.9 F 98.9 F Temperature Source Oral Oral Pulse Rate 81 81 Respiratory Rate 18 19 H Respiratory Effort Normal Non-Labored Respiratory Pattern Normal Blood Pressure 125/77 H 125/77 H Blood Pressure Mean 93 93 Pulse Ox 98 99 Oxygen Delivery Method Room Air Room Air 09/28/24 13:11 09/28/24 13:36 Temperature 97.2 F L Temperature Source Pulse Rate 68 68 Respiratory Rate 16 16 Respiratory Effort Respiratory Pattern Blood Pressure 122/71 H 122/71 H Blood Pressure Mean 88 88 Pulse Ox 100 100 Oxygen Delivery Method Positive well nourished and well developed General Appearance ED: well developed and NAD HEENT Reports moist mucous membranes normocephalic and atraumatic Eyes General Eye ED: Yes normal appearance of both eyes Neck full ROM Chest Wall Chest: Negative for tenderness Resp normal respiratory effort and normal air movement Effort and Inspection: symmetric chest movement; Negative for respiratory distress Cardio regular rate, regular rhythm and no murmurs Peripheral Pulses: pulses 2+ throughout GI normal to inspection, nondistended, normoactive bowel sounds GI Narrative: Healing horizontal scar very small dehisced wound mid lateral wound. No palpable induration or fluctuance. No exudative drainage. Very minimal erythema. Palpation: Negative for guarding or rebound tenderness present Extremity normal to inspection General Extremety ED: Negative for edema or tenderness General Extremity: Negative for edema Neuro oriented x3 and no sensory deficits noted Sensorium / Orientation: awake and alert Skin no rashes or lesions noted and no wounds MDM MDM MDM Narrative Medical decision making narrative: Interventions / MDM: Differential diagnosis: Wound dehiscence, 7 weeks post , reported fever Diagnosis considered but do not suspect: No clinical UTI symptoms, no clinical pneumonia, no reported mastitis symptoms. My EKG interpretation: N/A Imaging independently reviewed and interpreted by myself: CT pelvis IV contrast: No acute process minimal subcutaneous thickening, no fluid collection. No abscess. External documents reviewed: N/A Test considered but not ordered:N/A ED course: Afebrile in the ED 7 weeks post reported fever today with reported uterine rupture that was repaired. She is nontoxic. With her fever and history, IV established for labs will check CT pelvis IV contrast to rule out any abscess. 1320: Workup negative labs negative afebrile did not take any antipyretics before arrival. I discussed with her community resource officer Dr. Luciano, discussed her work cup. Will empirically put her on Keflex due to her wound dehiscence. She will follow-up in the office in the next 1 to 2 weeks. All questions were answered. Re-evaluation: stable Disposition discussed with patient/family/significant other: Patient and spouse Case discussed with consulting clinician: Gynecology This note was generated with allGreen[employer] dictation software. It may contain incorrect words, spelling, and punctuation that were not noted in checking the note before signing. Lab Data Attestation: I reviewed the patient's lab results. Labs: Laboratory Results - last 24 hr 09/28/24 12:13 WBC 6.9 RBC 3.95 L Hgb 12.3 Hct 36.7 L MCV 92.9 MCH 31.1 MCHC 33.5 RDW Std Deviation 41.8 RDW Coeff of [place] 12.1 Plt Count 262 MPV 10.5 Immature Gran % (Auto) 0.300 Neut % (Auto) 52.3 Lymph % (Auto) 34.9 [place] % (Auto) 8.0 Eos % (Auto) 3.6 Baso % (Auto) 0.9 Absolute Neuts (auto) 3.6 Absolute Lymphs (auto) 2.39 Nucleated RBC % 0 Sodium 135 Potassium 4.3 Chloride 103 Carbon Dioxide 22.6 Anion Gap 9 BUN 13 Creatinine 0.69 L Estim Creat Clear Calc 115.35 Est GFR (MDRD) Non-Af 117 BUN/Creatinine Ratio 19.4 Glucose 93 Calcium 9.8 Radiography Diagnostic Testing: Clinical Impression(s) from Imaging Studies Pelvis CT 09/28/24 11:44 IMPRESSION: Minimal cutaneous and subcutaneous thickening along the ventral lower abdomen. Reading Location: [facility] Discharge Plan Triage Chief Complaint: Other, Pain/Inj ED Provider: Morales Green Dx/Rx/DC Orders Clinical Impression: Postoperative wound dehiscence, S/P Instructions: Wound Dehiscence Prescriptions: New cephalexin 500 mg capsule 500 mg PO Q12 Qty: 14 0RF No Action PNV-DHA 27 mg iron-1 mg -300 mg capsule 1 cap PO DAILY norethindrone (contraceptive) [Senia] 0.35 mg tablet 0.35 mg PO QDAY Qty: 84 4RF Rx Instructions: start day 1 of menstrual cycle escitalopram oxalate [Lexapro] 5 mg tablet 5 mg PO QDAY Qty: 30 3RF buspirone 10 mg tablet 5 mg PO BID Primary Care Provider: Care Physician,No Primary Referrals: Meena Luciano MD [Med Staff - Active Staff] - 1-2 Weeks Care Physician,No Primary [Primary Care Provider] - Activity Restrictions/Additional Instructions: CT pelvis no abscess or fluid collection. Labs are stable. Discussed with Dr. Luciano in the ED. Take antibiotic as prescribed. Follow-up with her in the next 1 to 2 weeks. Print Language: Japanese Disposition Disposition: Home, Self Care Discharge Date/Time: 09/28/24 13:37
[2024-09-28 12:50] LABS: Anion Gap 9 (5-15); BUN 13 mg/dL (4-19); BUN/Creat Ratio 19.4 RATIO (10-20); Calcium,Total 9.8 mg/dL (7.6-11.0); Carbon Dioxide 22.6 mmol/L (21.0-32.0); Chloride 103 mmol/L (98-108); Estimated Creatinine Clearance 115.35 ml/min (50-250); Glucose 93 mg/dL (70-99); Potassium 4.3 mmol/L (3.3-5.1)
[2024-09-28 13:11] VITALS: BP 122/71; PULSE 68; RESP 16; O2SAT 100
[2024-09-28 13:36] VITALS: BP 122/71; PULSE 68; RESP 16; TEMP 36.2; O2SAT 100
== END 2024-09-28 13:37 | disposition home or self-care (01) ==
PROVIDERS: Emergency Provider Emergency Medicine; Visit Provider Emergency Medicine
DX: O90.0 Disruption of cesarean delivery wound (principal); Y83.8 Other surgical procedures as the cause of abnormal reaction of the patient, or of later complication, without mention of misadventure at the time of the procedure; F17.210 Nicotine dependence, cigarettes, uncomplicated; Z79.899 Other long term (current) drug therapy
CPT/HCPCS: 72192; 80048; 85025; 99283; A4216